=== PATIENT | male | born 1945 | race Caucasian/White ===

== ENCOUNTER 2016-11-19 10:37 | Day surgery (SDC) | payer OTHER ==
[2016-11-13 11:00] VITALS: Ht 170.2 cm; Wt 104.5 kg
[~2016-11-19] VITALS: Ht 170.2 cm; Wt 104.5 kg
[~2016-11-19 10:37] MED LIST: AMLO-110 PO; ATOR10TA88 PO; CALC0.5C17 PO; CHOL100027 PO; CIPROFLOXACIN 500 MG TAB PO SCH; CRD4 PO; LCTX PO; SODIUM CHLORIDE 0.9% 1000ML IV SCH
[2016-11-19 11:17] VITALS: BP 136/66; PULSE 70; TEMP 36.9; O2SAT 95
[2016-11-19 11:35] LABS: BUN/CREATININE RATIO 11.7 (10-20); CALCIUM 9.5 mg/dl (8.5-10.1); CREATININE 4.2 mg/dl (0.60-1.40); POTASSIUM 4.5 mmol/L (3.5-5.1)
[2016-11-19] MEDS ORDERED: FENTANYL CITRATE INJ 50 MCG/1 ML 2 ML VIAL ONE (12:42)
[2016-11-19] MEDS ORDERED: DEXAMETHASONE SOD INJ 4 MG/ML VIAL ONE (12:42)
[2016-11-19] MEDS ORDERED: PROPOFOL IV EMULSION 10 MG/ML 20 ML VIAL IV ONE (12:42)
[2016-11-19] MEDS ORDERED: LIDOCAINE HCL 2% 2 ML VIAL (20MG/ML) ONE (12:42)
[2016-11-19] MEDS ORDERED: ONDANSETRON INJ 2 MG/ML 2 ML VIAL ONE (12:42)
[2016-11-19] MEDS ORDERED: EpHEDrine SULFATE INJ 50 MG/ML AMP IV PRN (12:45)
[2016-11-19] MEDS ORDERED: ATROPINE SULFATE 0.1 MG/ML 5ML SYR IV PRN (12:45)
[2016-11-19] MEDS ORDERED: PROMETHAZINE HCL INJ 6.25 MG in SODIUM CHLORIDE 0.9% 50ML 50 ML IV PRN (12:45)
[2016-11-19] MEDS ORDERED: FENTANYL CITRATE INJ 50 MCG/1 ML 2 ML VIAL IV PRN (12:45)
[2016-11-19] MEDS ORDERED: ONDANSETRON INJ 2 MG/ML 2 ML VIAL IV PRN (12:45)
--- NOTE | 2016-11-19 13:08 | History & Physical Bridge Note ---
H&P Re-Evaluation Bridge Note: I have examined the patient, reviewed the History & Physical and in the interval since the performance of the History & Physical I have noted the following changes of clinical significance: No changes noted
--- NOTE | 2016-11-19 14:12 | [facility] Operative Report ---
Operative Report Operative Date Nov 19, 2016. Pre-Operative Diagnosis Benign prostatic hyperplasia with urinary retention Post-Operative Diagnosis same Procedure(s) Performed TURP, bipolar Surgeon Dr. Chela Branch Dress Marker Surgeon(s) None Estimated Blood Loss 5 mL Findings mild lateral lobe adenoma, trabeculated bladder with small cellules Fluids 200mL Specimens Permanent specimens A: Prostate chips Drains 20 fr coude villarreal Anesthesia LMA Complication(s) None Disposition Recovery Room / PACU Indications residual bph with elevated residual urine and equivocal obstruction on urodynamics. He is going to need kidney transplant so we plan to resect remaining prostate adenoma to lower outlet resistance and aid emptying. Description of Procedure Patient was given general LMA anesthesia and placed in lithotomy position. His genitals were prepped and draped in sterile fashion. Time out held with team. I placed a 26 fr rigid cystoscope to bladder. The urethra is unremarkable. The prostate is with lateral lobe adenoma to the apex. There is no cystitis and bladder is trabeculated with cellules. The bladder neck is open and there is no middle lobe, it has been resected previously and there is not residual tissue here. The UOs are close to bladder neck. I used bipolar system and thick loop to resect the left right lateral lobes and anterior areas. The bladder neck was completely untouched. I did spare the distal apical tissue at the veru. I used cautery for hemostasis and rinsed out the chips. I placed a 20 fr coude villarreal easily and inflated balloon with 10mL of water and connected him to gravity drainage and leg strap. He tolerated procedure well. He transferred to recovery under my escort, in stable condition. 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 Any exceptions are noted below.
[2016-11-19] MEDS ORDERED: PHEN-775 PO (14:14)
[2016-11-19] MEDS ORDERED: CPR500 PO (14:14)
--- NOTE | 2016-11-19 14:17 | Discharge Instructions ---
Discharge Instructions Date of Service Nov 19, 2016. Admission Reason for Admission: Benign Prostatic Hypertrophy W/Urinary Obstruction Discharge Discharge Diagnosis / Problem: bph with incomplete bladder emptying Discharge Goals Goal(s): Improve function, Improve disease control Activity Recommendations Activity Limitations: per Instructions/Follow-up section Lifting Limitations: no more than 25 pounds Exercise/Sports Limitations: gradually increase as tolerated May Resume Sexual Activity: when tolerated Shower/Bathe: no limitations Driving or Machine Use: resume 1 day after discharge . Instructions / Follow-Up Instructions / Follow-Up remove villarreal catheter in 2 days call office [phone] with any urinary problems after cath removal Discharge Diet Recommended Diet: Renal Diet Procedures Procedures Performed: Transurethral Resection of Prostate Pending Studies Studies pending at discharge: no Medical Emergencies . Who to Call and When: Medical Emergencies: If at any time you feel your situation is an emergency, please call 911 immediately. . Non-Emergent Contact Non-Emergency issues call your: Urologist Call Non-Emergent contact if: temperature is above 100.5 . . "Provider Documentation" section prepared by hCela Branch. . VTE Core Measure Inpt VTE Proph given/why not?: SCD's [place] Drug Monitoring Program Search Results: patient reviewed within database, no issues identified
[2016-11-19 14:51] VITALS: BP 138/70; PULSE 70; TEMP 36.7; O2SAT 94
--- NOTE | 2016-11-19 14:59 | Anesthesiology Progress Note ---
Anesthesia Post Op Note Date & Time Nov 19, 2016 at 14:59 Vital Signs Pain Intensity: 0 Vital Signs Past 12 Hours Date Time Temp Pulse Resp B/P (MAP) Pulse Ox O2 Delivery O2 Flow Rate FiO2 11/19/16 14:40 36.2 65 16 134/66 93 Room Air 11/19/16 14:30 65 16 123/67 92 Room Air 11/19/16 14:20 69 16 139/63 97 Oxymask 10 11/19/16 14:10 69 16 127/72 97 Oxymask 10 11/19/16 14:04 36.5 74 16 127/67 98 Oxymask 10 11/19/16 11:17 36.9 70 18 136/66 (89) 95 Room Air Notes Mental Status: alert / awake / arousable, participated in evaluation Pt Amnestic to Procedure: Yes Nausea / Vomiting: adequately controlled Pain: adequately controlled Airway Patency, RR, SpO2: stable & adequate BP & HR: stable & adequate Hydration State: stable & adequate Anesthetic Complications: no major complications apparent
[2016-11-19 15:20] VITALS: BP 127/67; PULSE 68; TEMP 36.6; O2SAT 95
== END 2016-11-19 15:40 | disposition home or self-care (01) ==
LOC: C.ACU 10:37
PROVIDERS: ATTEND Urology
DX: N40.1 Benign prostatic hyperplasia with lower urinary tract symptoms (principal); N41.1 Chronic prostatitis; I12.9 Hypertensive chronic kidney disease with stage 1 through stage 4 chronic kidney disease, or unspecified chronic kidney disease; N18.4 Chronic kidney disease, stage 4 (severe); E78.5 Hyperlipidemia, unspecified; Z79.899 Other long term (current) drug therapy; E66.9 Obesity, unspecified; Z68.36 Body mass index [BMI] 36.0-36.9, adult

== ENCOUNTER 2022-07-01 18:17 | Inpatient (IN) ==
--- NOTE | 2022-07-01 18:48 | ED Triage Note ---
Date of Service July 01, 2022 History of Present Illness This patient was briefly evaluated while in triage. An abbreviated physical exam was performed. This patient is a 76-year-old Male who who was referred to the ED by his PCP (Dr. Maki) for evaluation of a possible urinary tract infection. The patient reports that he did undergo a bladder procedure approximately 3 weeks ago. His recent urine test was concerning for infection, and was therefore referred to the emergency department for further evaluation. The patient denies any pain, nausea, vomiting or fever Physical Exam CONSTITUTIONAL: Healthy and well nourished. HEENT: No scleral icterus or conjunctival injection. INTEGUMENTARY: No rash or other significant dermatologic conditions noted. HEMATOLOGIC: No ecchymosis or petechiae. PSYCHIATRIC: Positive affect. NEUROLOGIC: No focal neurologic deficits noted. Initial orders for labs and / or imaging were placed and patient was placed in the waiting area until a bed is available. Please see further documentation for the full ED course.
[2022-07-01 20:02] LABS: Eosinophils # (auto) 0.34 K/uL (0-0.50); Eosinophils % (auto) 3.2 %; Hematocrit (blood only) 41.2 % (42.0-52.0); Hemoglobin 13.1 g/dl (14.0-18.0); Immature Granulocytes # (auto) 0.06 K/uL (0.01-0.20); Immature Granulocytes % (auto) 0.6 %; Lymphocytes # (auto) 1.55 K/uL (1.2-3.4); Lymphocytes % (auto) 14.7 %; Mean Corpuscular Hemoglobin 31.9 pg (25.0-34.0); Mean Corpuscular Hgb Conc 31.8 g/dL (32.0-36.0); Mean Corpuscular Volume 100.2 fL (80.0-100.0); Mean Platelet Volume 10.6 fL (9.4-12.4); Monocytes # (auto) 1.26 K/uL (0.11-0.59); Neutrophils # (auto) 7.21 K/uL (1.40-6.50); Neutrophils % (auto) 68.5 %; Platelet Count 233 K/uL (130-400); RDW Coefficient of Variation 14.8 % (11.5-14.5); RDW Standard Deviation 54.8 fL (36.4-46.3); Red Blood Count 4.11 M/uL (4.70-6.10); White Blood Count 10.52 K/ul (4.8-10.8)
[2022-07-01 20:22] LABS: Alanine Aminotransferase 14 U/L (7-52); Albumin Globulin Ratio 1.4 (0.9-2); Albumin Level 4.1 gm/dl (3.4-5.0); Alkaline Phosphatase 72 U/L (34-104); Anion Gap 6 (3-11); Aspartate Aminotransferase 19 U/L (13-39); BUN Creatinine Ratio 14.8 (10-20); Bilirubin,Total 0.3 mg/dl (0.2-1.0); Blood Urea Nitrogen 76 mg/dl (6-23); Calcium 9.8 mg/dl (8.5-10.1); Carbon Dioxide 27 mmol/L (21-32); Chloride 108 mmol/L (98-107); Est GFR (African American) 11.6 ml/min; Glucose 145 mg/dl (70-99(Fasting)); Potassium 4.3 mmol/L (3.5-5.1); Sodium 141 mmol/L (136-145); Total Protein 7.1 gm/dl (6.0-8.3)
[2022-07-01 21:15] LABS: Appearance Urine Turbid (Clear); Bacteria Urine Automated 1+ (Negative); Bilirubin Urine Negative (Negative); Blood Urine 2+ (Negative); Color Urine Yellow; Epithelial Cell Urine Auto 20-30 /lpf (0-5); Glucose Urine UA Trace (Negative); Ketones Urine Negative (Negative); Leukocyte Esterase Urine 3+ (Negative); Nitrite Urine Positive (Negative); Protein Urine 2+ (Negative); Specific Gravity Urine 1.014 (1.000-1.030); Urobilinogen Urine Negative (Negative); WBC Urine Automated >30 /hpf (0-5); pH Urine 5.5 (4.5-7.5)
[2022-07-01] MEDS ORDERED: MEROPENEM 500 MG in SYRINGE 0 ML IV SCH (21:15)
[2022-07-01 22:12] LABS: Magnesium 2.2 mg/dl (1.7-2.4)
--- NOTE | 2022-07-01 22:37 | Emergency Department Note ---
Impression & Plan Complicated UTI (urinary tract infection), CKD (chronic kidney disease) stage 5, GFR less than 15 ml/min ED Provider Note NAME: SHAYNE WAGONER AGE: 76 SEX: M : 1945 ARRIVES VIA: Walk-In INFORMANT: Patient, ED PROVIDER(S): Dallas Malik MD CHIEF COMPLAINT: Abnormal outpatient urine culture, outpatient referral MEDICAL DECISION MAKING: Patient presented due to concern for an outpatient urinalysis that showed resistance to by mouth medications. Patient has a normal white count mild anemia hemoglobin of 13. The patient's kidney function does show creatinine of 5. Prior creatinine from 2019 shows 4.6. Mild ovation of glucose at 145 but the patient is not DKA with normal bicarb and anion gap. Patient did give another urinalysis which is likely infection. COVID-negative. Blood work was obtained which did show the patient does have CKD stage V. The patient does still make urine. I did speak with pharmacy and spoke w/ Jennifer Pizarro, PharmD did send them a photo via [place] text with regard to the sensit ivities given the patient does have a Keflex allergy. They did recommend meropenem 500 every 24. This was ordered. Given the inability to facilitate it outpatient treatment at this time given the complicated UTI and necessity for IV antibiotics I did speak with the on-call hospitalist Dr. Mann and the patient was admitted to the medicine service Prior /Outside records reviewed: I did review the patient's most recent outpatient urine culture which showed 100,000 CFU's of Pseudomonas that was sensitive to cefepime gentamicin Zosyn and tobramycin but not sensitive to ciprofloxacin or levofloxacin. Differential diagnosis: Cystitis, CKD, pyelonephritis, urethritis, drug-resistant UTI among others were considered Diagnostics, as interpreted by me: ECG: None Cardiac monitoring: An order was placed for continuous cardiac monitoring. The monitor shows a rate of 92 with sinus rhythm. Patient was placed on pulse oximetry Medical decision rules: None Imaging studies: See below HPI: Patient presents due to concern for abnormal outpatient urine culture. The patient states that he was called about an abnormal test result and was referred immediately to the emergency department. The patient states that this was done so at the behest of his primary urologist through [employer]. Patient states that he did have a UTI several weeks ago and did have a cystoscopy performed whi showed some abnormal growths which were removed and the patient was in for follow-up testing and did have a repeat urinalysis completed patient denies any current symptoms but states that he did have some mild hematuria about 1 week ago. The patient states that he is currently on the transplant list and does follow with Dr. Maki as the patient does have significant kidney dysfunction. Patient states that he does still make urine. Patient denies any fevers chills flank or back pain. PAST MEDICAL HISTORY: See Below PAST SURGICAL HISTORY: See Below SOCIAL HISTORY: See Below HOME MEDICATIONS: See Below ALLERGIES: See Below VITALS: See Below PHYSICAL EXAMINATION: GENERAL: NAD, wearing a mask, non-toxic. EYE EXAM: Normal conjunctiva. PERRL, no anisocoria and EOM's grossly intact w/o pain. NECK: Supple, no nuchal rigidity, no adenopathy, non-tender. No signs of meningismus. FROM of the neck with good chin to chest and neck extension. No stridor. LUNGS: Clear to auscultation. Normal chest wall mechanics. HEART: NSR, no MRG. ABDOMEN: Abdomen soft, non-tender, normo-active bowel sounds, no masses, no rebound or guarding. BACK: No CVA TTP. SKIN: No rashes and no bruising. UPPER EXTREMITIES: Upper extremities are grossly normal. LOWER EXTREMITIES: Grossly normal, no edema. NEURO EXAM: A&O x3, cranial nerves II-XII grossly intact, normal speech, moves all 4 extremities. Past Med/Surg History Medical History (Updated 07/01/22 @ 22:37 by Dallas Malik MD) Aortic valve stenosis BPH (benign prostatic hyperplasia) Chronic kidney disease, stage 4 (severe) per pt, states he is not on dialysis Hyperlipidemia Hypertension Kidney stones Surgical History History of arthroscopy of left knee History of colonoscopy History of orchiectomy, unilateral Family History Mother Family history of diabetes mellitus Father Family hx of colon cancer Other No family history of adverse response to anesthesia Social History Smoking Status: Former smoker Second Hand Exposure: No; Hx Alcohol Use: No Hx Substance Use: No Preferred Language: Greek Communication Ability: Effective [employer] Required: No Beliefs That Will Affect Care: None Current Living Situation: Spouse Feels Safe at Home: Yes Assistive Devices: None Allergies Allergies Allergy/AdvReac Type Severity Reaction Status Date / Time cephalexin Allergy Severe swelling Verified 08/05/18 08:42 tamsulosin Allergy Severe angioedema Verified 08/05/18 08:42 Home Meds Home Medications Medication Instructions Recorded Confirmed amlodipine 5 mg tablet 5 mg PO HS 07/26/18 07/01/22 cholecalciferol (vitamin D3) 25 1,000 unit PO HS 07/26/18 07/01/22 mcg (1,000 unit) tablet atorvastatin 80 mg tablet 80 mg PO HS 07/01/22 07/01/22 calcitriol 0.25 mcg capsule 0.25 mcg PO QAM 07/01/22 07/01/22 clopidogrel 75 mg tablet 75 mg PO QA 07/01/22 07/01/22 finasteride 5 mg tablet 5 mg PO [facility] 07/01/22 07/01/22 Results & Data (ED) Vital Signs Vital Signs - 24 hr 07/01/22 18:43 Temperature 36.7 C Temperature Source Temporal Artery Scan Pulse Rate 89 Respiratory Rate 16 Respiratory Effort / Characteristics Non-Labored Spontaneous Respiratory Depth Normal Blood Pressure 143/70 H Blood Pressure Mean 94 Pulse Oximetry 93 Oxygen Delivery Method Room Air Sepsis Recent Fever Within 48 Hours No Sepsis New/Unexplained Change in Mental Status No Sepsis Action Taken by Nursing No Action Required Home Medications Current Medication List: was personally reviewed by me Laboratory Data Attestation: I reviewed the patient's lab results. 07/01/22 19:38 07/01/22 19:38 Lab Results 07/01/22 07/01/22 07/01/22 Range/Units 19:38 19:38 20:57 WBC 10.52 (4.8-10.8) K/ul RBC 4.11 L (4.70-6.10) M/uL Hgb 13.1 L (14.0-18.0) g/dl Hct 41.2 L (42.0-52.0) % MCV 100.2 H (80.0-100.0) fL MCH 31.9 (25.0-34.0) pg MCHC 31.8 L (32.0-36.0) g/dL RDW Std Deviation 54.8 H (36.4-46.3) fL RDW Coeff of Grace 14.8 H (11.5-14.5) % Plt Count 233 (130-400) K/uL MPV 10.6 (9.4-12.4) fL Immature Gran % (Auto) 0.6 % Neut % (Auto) 68.5 % Lymph % (Auto) 14.7 % Lake % (Auto) 12.0 % Eos % (Auto) 3.2 % Baso % (Auto) 1.0 % Neut # (Auto) 7.21 H (1.40-6.50) K/uL Lymph # (Auto) 1.55 (1.2-3.4) K/uL Lake # (Auto) 1.26 H (0.11-0.59) K/uL Eos # (Auto) 0.34 (0-0.50) K/uL Baso # (Auto) 0.10 (0-0.2) K/uL Immature Gran # (Auto) 0.06 (0.01-0.20) K/uL Sodium 141 (136-145) mmol/L Potassium 4.3 (3.5-5.1) mmol/L Chloride 108 H (98-107) mmol/L Carbon Dioxide 27 (21-32) mmol/L Anion Gap 6 (3-11) BUN 76 H (6-23) mg/dl Creatinine 5.14 H* (0.6-1.4) mg/dl Est Cr Clr Drug Dosing Not Reportable Est GFR ( Amer) 11.6 ml/min Est GFR (Non-Af Amer) 10.0 ml/min BUN/Creatinine Ratio 14.8 (10-20) Glucose 145 H (70-99(Fasting)) mg/dl Calcium 9.8 (8.5-10.1) mg/dl Magnesium 2.2 (1.7-2.4) mg/dl Total Bilirubin 0.3 (0.2-1.0) mg/dl AST 19 (13-39) U/L ALT 14 (7-52) U/L Alkaline Phosphatase 72 (34-104) U/L Total Protein 7.1 (6.0-8.3) gm/dl Albumin 4.1 (3.4-5.0) gm/dl Globulin 3.0 (2.5-4.0) gm/dl Albumin/Globulin Ratio 1.4 (0.9-2) Urine Color Yellow Urine Appearance Turbid A (Clear) Urine pH 5.5 (4.5-7.5) Ur Specific [place] 1.014 (1.000-1.030) Urine Protein 2+ H (Negative) Urine Glucose (UA) Trace H (Negative) Urine Ketones Negative (Negative) Urine Blood 2+ H (Negative) Urine Nitrite Positive A (Negative) Urine Bilirubin Negative (Negative) Urine Urobilinogen Negative (Negative) Ur Leukocyte Esterase 3+ H (Negative) Urine WBC (Auto) >30 H (0-5) /hpf Urine RBC (Auto) 5-10 H (0-4) /hpf U Hyaline Cast (Auto) 1-5 (0-5) /lpf U Epithel Cells (Auto) 20-30 H (0-5) /lpf Urine Bacteria (Auto) 1+ H (Negative) SARS-CoV-2, RNA, NAAT (NEGATIVE) 07/01/22 Range/Units 21:37 WBC (4.8-10.8) K/ul RBC (4.70-6.10) M/uL Hgb (14.0-18.0) g/dl Hct (42.0-52.0) % MCV (80.0-100.0) fL MCH (25.0-34.0) pg MCHC (32.0-36.0) g/dL RDW Std Deviation (36.4-46.3) fL RDW Coeff of Grace (11.5-14.5) % Plt Count (130-400) K/uL MPV (9.4-12.4) fL Immature Gran % (Auto) % Neut % (Auto) % Lymph % (Auto) % Lake % (Auto) % Eos % (Auto) % Baso % (Auto) % Neut # (Auto) (1.40-6.50) K/uL Lymph # (Auto) (1.2-3.4) K/uL [place] # (Auto) (0.11-0.59) K/uL Eos # (Auto) (0-0.50) K/uL Baso # (Auto) (0-0.2) K/uL Immature Gran # (Auto) (0.01-0.20) K/uL Sodium (136-145) mmol/L Potassium (3.5-5.1) mmol/L Chloride (98-107) mmol/L Carbon Dioxide (21-32) mmol/L Anion Gap (3-11) BUN (6-23) mg/dl Creatinine (0.6-1.4) mg/dl Est Cr Clr Drug Dosing Est GFR ( Amer) ml/min Est GFR (Non-Af Amer) ml/min BUN/Creatinine Ratio (10-20) Glucose (70-99(Fasting)) mg/dl Calcium (8.5-10.1) mg/dl Magnesium (1.7-2.4) mg/dl Total Bilirubin (0.2-1.0) mg/dl AST (13-39) U/L ALT (7-52) U/L Alkaline Phosphatase (34-104) U/L Total Protein (6.0-8.3) gm/dl Albumin (3.4-5.0) gm/dl Globulin (2.5-4.0) gm/dl Albumin/Globulin Ratio (0.9-2) Urine Color Urine Appearance (Clear) Urine pH (4.5-7.5) Ur Specific [place] (1.000-1.030) Urine Protein (Negative) Urine Glucose (UA) (Negative) Urine Ketones (Negative) Urine Blood (Negative) Urine Nitrite (Negative) Urine Bilirubin (Negative) Urine Urobilinogen (Negative) Ur Leukocyte Esterase (Negative) Urine WBC (Auto) (0-5) /hpf Urine RBC (Auto) (0-4) /hpf U Hyaline Cast (Auto) (0-5) /lpf U Epithel Cells (Auto) (0-5) /lpf Urine Bacteria (Auto) (Negative) SARS-CoV-2, RNA, NAAT NEGATIVE (NEGATIVE) Administered Medications Meropenem 500 mg/ Syringe 10 mls @ 2 mls/min IV Q24H [facility]; Protocol Stop: 07/03/22 21:14 Last Admin: 07/01/22 22:28 Dose: 2 mls/min Documented By: AW Discharge Plan Visit Data Chief Complaint: Urinary Symptoms Stated Complaint: REF BY DOC ED Provider: Dallas Malik Discharge Problem: Complicated UTI (urinary tract infection), CKD (chronic kidney disease) stage 5, GFR less than 15 ml/min Patient Disposition: Admitted As Inpatient Forms Stand Alone Forms: [facility] Prescriptions Prescriptions: No Action amlodipine 5 mg Tablet 5 mg PO HS cholecalciferol (vitamin D3) 1,000 unit Tablet 1,000 unit PO HS atorvastatin 80 mg tablet 80 mg PO HS calcitriol 0.25 mcg capsule 0.25 mcg PO QAM clopidogrel 75 mg tablet 75 mg PO QAM finasteride 5 mg tablet 5 mg PO QAM Referrals Referrals: Mike Maki MD [Primary Care Provider] -
[2022-07-01] MEDS ORDERED: SODIUM CHLORIDE 0.45 % 1,000 ML IV ONE (23:49)
--- NOTE | 2022-07-01 23:57 | History & Physical Report ---
Date of Service July 01, 2022 Assessment & Plan (1) Complicated UTI (urinary tract infection): Plan: Quinolone resistant Pseudomonas aeruginosa History BPH, bladder malignancy status post TURBT No sepsis for now hx CAD status post stent status post bioprosthetic AVR hypertension, slightly elevated hyperlipidemia on statin Rx CRI, close to baseline, patient currently off transplant list following recent bladder malignancy diagnosis DM 2 diet-controlled, patient disputes outpatient diagnosis, recent hemoglobin A1c of 6.18 March 2022 chronic anemia, hemoglobin at baseline past tobacco abuse. F Meropenem ID consult Re: Complicated UTI, quinolone resistant Pseudomonas aeruginosa, history of CKD/cephalosporin allergy ISS BG goal 1 10-1 40 DVT prophylaxis. Heparin subcu Full code Text document was generated using [employer] voice recognition software. It may contain grammatical or spelling errors. Kindly contact undersigned for clarification of any documentation item in question. History of Present Illness Chief Complaint: Abnormal urinalysis Primary Care Provider: iMke Maki MD History obtained from patient and records. Medical history significant for CAD status post stent, status post bioprosthetic AVR, hypertension, hyperlipidemia, CRI (baseline creatinine 5), BPH status post surgery, bladder cancer, DM 2 diet-controlled, chronic anemia (baseline hemoglobin of 13), past tobacco abuse. Last confinement 2011 for sepsis secondary to complicated UTI. Patient seen by [facility] urologist last month for evaluation of UTI symptoms. Patient underwent outpatient cystoscopy at [facility] last month. Bladder malignancy with prostate stones found. TURBT subsequently done. Outpatient UA requested by PCP 2 days ago. Quinolone resistant Pseudomonas aeruginosa found on urine CS. Patient denies abdominal/flank pain, dysuria, fever, chills. Patient sent to the ER for further management by PCP. Meropenem administered at the ER. 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 Allergies Allergy/AdvReac Type Severity Reaction Status Date / Time cephalexin Allergy Severe swelling Verified 08/05/18 08:42 tamsulosin Allergy Severe angioedema Verified 08/05/18 08:42 Home Medications Medication Instructions Recorded Confirmed Type amlodipine 5 mg tablet 5 mg PO HS 07/26/18 07/01/22 History cholecalciferol (vitamin D3) 25 1,000 unit PO HS 07/26/18 07/01/22 History mcg (1,000 unit) tablet atorvastatin 80 mg tablet 80 mg PO HS 07/01/22 07/01/22 History calcitriol 0.25 mcg capsule 0.25 mcg PO QAM 07/01/22 07/01/22 History clopidogrel 75 mg tablet 75 mg PO QAM 07/01/22 07/01/22 History finasteride 5 mg tablet 5 mg PO QAM 07/01/22 07/01/22 History Past Med/Surg History Medical History (Updated 07/01/22 @ 22:37 by Dallas Malik MD) Aortic valve stenosis BPH (benign prostatic hyperplasia) Chronic kidney disease, stage 4 (severe) per pt, states he is not on dialysis Hyperlipidemia Hypertension Kidney stones Surgical History History of arthroscopy of left knee History of colonoscopy History of orchiectomy, unilateral Family History Mother Family history of diabetes mellitus Father Family hx of colon cancer Other No family history of adverse response to anesthesia Social History Smoking Status: Former smoker Second Hand Exposure: No; Do You Dip or Chew Tobacco: No; Tobacco Cessation Education Requested by Patient: No Hx Alcohol Use: No Hx Substance Use: No Preferred Language: Mohawk Communication Ability: Effective Metal Model Builder Required: No Beliefs That Will Affect Care: None Current Living Situation: Spouse Other Information That Helps Us Care for You: No Feels Safe at Home: Yes Safety Concerns: Feels Safe At This Time Assistive Devices: None Review of Systems Review of Systems: As per HPI, all other systems reviewed and negative Physical Exam Physical Exam: GENERAL: Comfortable, obese, no respiratory distress SKIN: Normal color, warm HEENT: [place] palpebral conjunctivae, no ptosis, dry buccal mucosa NECK : Supple, short neck, no tenderness CHEST : CTA, no tenderness HEART : RRR, systolic murmur ABDOMEN: Some distention, nontender EXTREMITIES : Minimal LE swelling, no LE tenderness, no other conspicuous deformities noted NEUROLOGIC : Coherent, no facial asymmetry, no other gross focality Results & Data Results & Data ([facility]) Vital Signs (Past 12 Hours) Vital Signs Temp Pulse Resp BP Pulse Ox O2 Del Method 07/01/22 18:43 36.7 C 89 16 143/70 H 93 Room Air Laboratory Results Laboratory Results WBC 10.52 K/ul (4.8-10.8) 07/01/22 19:38 RBC 4.11 M/uL (4.70-6.10) L 07/01/22 19:38 Hgb 13.1 g/dl (14.0-18.0) L 07/01/22 19:38 Hct 41.2 % (42.0-52.0) L 07/01/22 19:38 MCV 100.2 fL (80.0-100.0) H 07/01/22 19:38 MCH 31.9 pg (25.0-34.0) 07/01/22 19:38 MCHC 31.8 g/dL (32.0-36.0) L 07/01/22 19:38 RDW Std Deviation 54.8 fL (36.4-46.3) H 07/01/22 19:38 RDW Coeff of Grace 14.8 % (11.5-14.5) H 07/01/22 19:38 Plt Count 233 K/uL (130-400) 07/01/22 19:38 MPV 10.6 fL (9.4-12.4) 07/01/22 19:38 Immature Gran % (Auto) 0.6 % 07/01/22 19:38 Neut % (Auto) 68.5 % 07/01/22 19:38 Lymph % (Auto) 14.7 % 07/01/22 19:38 [place] % (Auto) 12.0 % 07/01/22 19:38 Eos % (Auto) 3.2 % 07/01/22 19:38 Baso % (Auto) 1.0 % 07/01/22 19:38 Neut # (Auto) 7.21 K/uL (1.40-6.50) H 07/01/22 19:38 Lymph # (Auto) 1.55 K/uL (1.2-3.4) 07/01/22 19:38 [place] # (Auto) 1.26 K/uL (0.11-0.59) H 07/01/22 19:38 Eos # (Auto) 0.34 K/uL (0-0.50) 07/01/22 19:38 Baso # (Auto) 0.10 K/uL (0-0.2) 07/01/22 19:38 Immature Gran # (Auto) 0.06 K/uL (0.01-0.20) 07/01/22 19:38 Sodium 141 mmol/L (136-145) 07/01/22 19:38 Potassium 4.3 mmol/L (3.5-5.1) 07/01/22 19:38 Chloride 108 mmol/L (98-107) H 07/01/22 19:38 Carbon Dioxide 27 mmol/L (21-32) 07/01/22 19:38 Anion Gap 6 (3-11) 07/01/22 19:38 BUN 76 mg/dl (6-23) H 07/01/22 19:38 Creatinine 5.14 mg/dl (0.6-1.4) H* 07/01/22 19:38 Est Cr Clr Drug Dosing Not Reportable 07/01/22 19:38 Est GFR ( Amer) 11.6 ml/min 07/01/22 19:38 Est GFR (Non-Af Amer) 10.0 ml/min 07/01/22 19:38 BUN/Creatinine Ratio 14.8 (10-20) 07/01/22 19:38 Glucose 145 mg/dl (70-99(Fasting)) H 07/01/22 19:38 Calcium 9.8 mg/dl (8.5-10.1) 07/01/22 19:38 Magnesium 2.2 mg/dl (1.7-2.4) 07/01/22 19:38 Total Bilirubin 0.3 mg/dl (0.2-1.0) 07/01/22 19:38 AST 19 U/L (13-39) 07/01/22 19:38 ALT 14 U/L (7-52) 07/01/22 19:38 Alkaline Phosphatase 72 U/L (34-104) 07/01/22 19:38 Total Protein 7.1 gm/dl (6.0-8.3) 07/01/22 19:38 Albumin 4.1 gm/dl (3.4-5.0) 07/01/22 19:38 Globulin 3.0 gm/dl (2.5-4.0) 07/01/22 19:38 Albumin/Globulin Ratio 1.4 (0.9-2) 07/01/22 19:38 Urine Color Yellow 07/01/22 20:57 Urine Appearance Turbid (Clear) A 07/01/22 20:57 Urine pH 5.5 (4.5-7.5) 07/01/22 20:57 Ur Specific [place] 1.014 (1.000-1.030) 07/01/22 20:57 Urine Protein 2+ (Negative) H 07/01/22 20:57 Urine Glucose (UA) Trace (Negative) H 07/01/22 20:57 Urine Ketones Negative (Negative) 07/01/22 20:57 Urine Blood 2+ (Negative) H 07/01/22 20:57 Urine Nitrite Positive (Negative) A 07/01/22 20:57 Urine Bilirubin Negative (Negative) 07/01/22 20:57 Urine Urobilinogen Negative (Negative) 07/01/22 20:57 Ur Leukocyte Esterase 3+ (Negative) H 07/01/22 20:57 Urine WBC (Auto) >30 /hpf (0-5) H 07/01/22 20:57 Urine RBC (Auto) 5-10 /hpf (0-4) H 07/01/22 20:57 U Hyaline Cast (Auto) 1-5 /lpf (0-5) 07/01/22 20:57 U Epithel Cells (Auto) 20-30 /lpf (0-5) H 07/01/22 20:57 Urine Bacteria (Auto) 1+ (Negative) H 07/01/22 20:57 SARS-CoV-2, RNA, NAAT NEGATIVE (NEGATIVE) 07/01/22 21:37 Diagnostic Findings Chest x-ray as per my interpretation cardiomegaly, atelectasis, elevated right hemidiaphragm Code Status & VTE Plan VTE Prophylaxis Plan VTE Prophylaxis will be ordered: Yes
[2022-07-02] MEDS ORDERED: ALBUMIN 25% 12.5 GM/50 ML VIAL IV ONE (00:30)
[2022-07-02] MEDS ORDERED: GLUCOSE 40% GEL 15 GM TUBE PO PRN (01:54)
[2022-07-02] MEDS ORDERED: DEXTROSE 50% 50 ML SYRINGE IV PRN (01:54)
[2022-07-02] MEDS ORDERED: CARBOHYDRATES FOR HYPOGLYCEMIA PO PRN (01:54)
[2022-07-02] MEDS ORDERED: ACETAMINOPHEN 325 MG TAB PO PRN (01:54)
[2022-07-02] MEDS ORDERED: GLUCOSE 10 TAB/TUBE PO PRN (01:54)
[2022-07-02] MEDS ORDERED: GLUCAGON FOR INJ 1 MG VIAL SQ PRN (01:54)
[2022-07-02] MEDS ORDERED: PROMETHAZINE HCL 12.5 MG in SODIUM CHLORIDE 0.9% 50 ML IV PRN (01:54)
[2022-07-02] MEDS: INSULIN ASPART PER UNIT SC SCH ×5 (02:00→20:31)
[2022-07-02] MEDS: amLODIPine BESYLATE 5 MG TAB PO SCH ×2 (02:51→20:31)
[2022-07-02] MEDS: HEPARIN SOD 5,000 UNIT/0.5 ML VIAL SQ SCH ×3 (06:29→20:31)
--- NOTE | 2022-07-02 07:20 | XRay Report ---
SINGLE VIEW CHEST CLINICAL HISTORY: Renal failure FINDINGS: An AP, portable, upright chest radiograph is compared to study dated 08/02/2011. The examina tion is degraded by portable technique and patient rotation. The heart is top normal for projection. The pulmonary vasculature is noncongested. There is chronic elevation of right hemidiaphragm with bi basilar scarring/atelectasis. No airspace consolidation or large pleural effusion is identified. No p neumothorax is seen. The skeletal structures are osteopenic. The bony thorax is grossly intact. IMPRESSION: No acute cardiopulmonary abnormality is identified. ACT 112: Negative or not required by law. Electronically signed by: Hansel Argueta M.D. 07/02/2022 7:19 AM
[2022-07-02 08:00] LABS: Basophils # (auto) 0.09 K/uL (0-0.2); Basophils % (auto) 0.9 %; Eosinophils # (auto) 0.46 K/uL (0-0.50); Eosinophils % (auto) 4.6 %; Hemoglobin 12.1 g/dl (14.0-18.0); Immature Granulocytes # (auto) 0.06 K/uL (0.01-0.20); Immature Granulocytes % (auto) 0.6 %; Lymphocytes # (auto) 1.61 K/uL (1.2-3.4); Mean Corpuscular Hemoglobin 31.7 pg (25.0-34.0); Mean Corpuscular Hgb Conc 31.8 g/dL (32.0-36.0); Mean Corpuscular Volume 99.5 fL (80.0-100.0); Mean Platelet Volume 11.1 fL (9.4-12.4); Monocytes # (auto) 1.35 K/uL (0.11-0.59); Monocytes % (auto) 13.4 %; Neutrophils # (auto) 6.49 K/uL (1.40-6.50); Neutrophils % (auto) 64.5 %; Platelet Count 204 K/uL (130-400); RDW Coefficient of Variation 14.8 % (11.5-14.5); RDW Standard Deviation 53.9 fL (36.4-46.3); Red Blood Count 3.82 M/uL (4.70-6.10); White Blood Count 10.06 K/ul (4.8-10.8)
[2022-07-02] MEDS ORDERED: SODIUM CHLORIDE 0.45 % 1,000 ML IV ONE (08:23)
[2022-07-02 08:29] LABS: Anion Gap 7 (3-11); BUN Creatinine Ratio 15.5 (10-20); Blood Urea Nitrogen 83 mg/dl (6-23); Calcium 9.1 mg/dl (8.5-10.1); Carbon Dioxide 23 mmol/L (21-32); Chloride 111 mmol/L (98-107); Est GFR (Non-African American) 9.5 ml/min; Glucose 124 mg/dl (70-99(Fasting)); Potassium 4.2 mmol/L (3.5-5.1); Sodium 141 mmol/L (136-145)
[2022-07-02] MEDS: CLOPIDOGREL BISULFATE 75 MG TAB PO SCH (09:01)
[2022-07-02] MEDS: FINASTERIDE 5 MG TAB PO SCH (09:01)
[2022-07-02] MEDS ORDERED: Patient's HEIGHT Needed STA (14:20)
[2022-07-02] MEDS ORDERED: Patient's HEIGHT &/or WEIGHT Needed ONE (15:00)
--- NOTE | 2022-07-02 15:54 | Hospitalist Progress Note ---
Date of Service July 02, 2022 Assessment & Plan (1) Complicated UTI (urinary tract infection): Plan: Multiresistant Pseudomonas aeruginosa as below. He was sent in from home following the positive urine culture with multiple resistant organism He had this following urine culture and sensitivity as an outpatient: Culture Growth >100,000 colonies/mL Pseudomonas aeruginosa Abnormal This bacterial species is known to produce a chromosomal AmpC inducible beta lactamase. Penicillin or cephalosporin use, with the exception of cefepime, may result in resistance. Resulting Agency: Susceptibility Pseudomonas aeruginosa MICROBROTH DILUTIONS Cefepime Susceptible Ciprofloxacin Resistant Gentamicin Susceptible 1 Levofloxacin Resistant Piperacillin Tazobactam Susceptible Tobramycin Susceptible 1 Changed result: Previously reported as Susceptible (2) on 06/30/2022 at 1444 EST. Specimen Collected: 06/27/22 4:40 PM Last Urine culture in the hospital is pending Received a dose of meropenem in the emergency room Appreciate ID input and recommendation Started with meropenem 500 mg IV once daily given the stage V kidney disease and this will be continued for 14 days in total as per the recommendation Will have ultrasound-guided line Discharge following management of IV antibiotic administration Chronic kidney disease stage V Has a GFR of around [address] 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 DVT prophylaxis. Heparin subcu Full code Admission and Anticipated Discharge Date Admission Date: July 01, 2022 Subjective 07/02/2022 The patient was seen and examined in medical floor He denies any symptoms whatsoever and wants to leave the hospital MÓNICA He does not have any urinary symptoms, no fever and or chills Review of Systems Review of Systems: All systems reviewed and are unremarkable except as noted below Physical Exam Physical Exam: Sitting at the edge of the bed without any acute distress Constitutional: well developed, well nourished and + obese; not ill appearing Eyes: PERRL, conjunctivae normal, anicteric sclerae ENMT: external ear and nose normal, oropharynx normal Neck: trachea midline, no thyromegaly Respiratory: no respiratory distress Auscultation: lungs clear to auscultation bilaterally and + crackles (Minimal bibasilar crackles) Cardiovascular: Rate/Rhythm: regular rate and regular rhythm; not tachycardic Heart Sounds: normal S1 and normal S2; no murmur Extremities: + edema (Trace edema bilaterally) Gastrointestinal (Abdomen): Inspection/Auscultation: + abdomen distended and normal bowel sounds Percussion/Palpation: abdomen soft; abdomen nontender Musculoskeletal: No acute arthritis in any joint Neurologic: Alert, awake and oriented x3. No focal sensory or motor deficit appreciated Psychiatric: A+Ox3, euthymic affect Lymphatic: no cervical or axillary lymphadenopathy Results & Data Results & Data ([facility]) Vital Signs (Past 12 Hours) Vital Signs Temp Pulse Resp BP Pulse Ox O2 Del Method 07/02/22 07:07 Room Air 07/02/22 07:02 37.2 C 93 H 18 146/80 H 93 Room Air Laboratory Results Short CBC 07/01/22 07/02/22 Range/Units 19:38 06:52 WBC 10.52 10.06 (4.8-10.8) K/ul Hgb 13.1 L 12.1 L (14.0-18.0) g/dl Hct 41.2 L 38.0 L (42.0-52.0) % Plt Count 233 204 (130-400) K/uL BMP 07/01/22 07/02/22 19:38 06:52 Sodium 141 141 Potassium 4.3 4.2 Chloride 108 H 111 H Carbon Dioxide 27 23 BUN 76 H 83 H Creatinine 5.14 H* 5.37 H* Glucose 145 H 124 H Calcium 9.8 9.1 Liver Function 07/01/22 Range/Units 19:38 Total Bilirubin 0.3 (0.2-1.0) mg/dl AST 19 (13-39) U/L ALT 14 (7-52) U/L Alkaline Phosphatase 72 (34-104) U/L Albumin 4.1 (3.4-5.0) gm/dl Urine 07/01/22 Range/Units 20:57 Urine Color Yellow Urine Appearance Turbid A (Clear) Urine pH 5.5 (4.5-7.5) Ur Specific [place] 1.014 (1.000-1.030) Urine Protein 2+ H (Negative) Urine Glucose (UA) Trace H (Negative) Medications Administered Current Inpatient Medications Acetaminophen (Acetaminophen 325 Mg Tab) 650 mg PO Q4H PRN PRN Reason: pain/fever Stop: 08/01/22 01:53 Amlodipine Besylate (Amlodipine Besylate 5 Mg Tab) 5 mg PO [facility] Stop: 08/01/22 01:53 Last Admin: 07/02/22 02:51 Dose: 5 mg Atorvastatin Calcium (Atorvastatin 40 Mg Tab) 80 mg PO [facility] Stop: 08/01/22 20:59 Clopidogrel Bisulfate (Clopidogrel Bisulfate 75 Mg Tab) [facility] Stop: 08/01/22 08:59 Last Admin: 07/02/22 09:01 Dose: 75 mg Dextrose (Dextrose 50% 50 Ml Syringe) 25 - 50 ml IV UD PRN; Protocol PRN Reason: Hypoglycemia Protocol Stop: 08/01/22 01:53 Finasteride (Finasteride 5 Mg Tab) [facility] Stop: 08/01/22 08:59 Last Admin: 07/02/22 09:01 Dose: 5 mg Glucagon (Glucagon For Inj 1 Mg Vial) 1 mg SQ UD PRN; Protocol PRN Reason: Hypoglycemia Protocol Stop: 08/01/22 01:53 Glucose (Glucose 10 Tab/Tube) 4 - 8 tab PO UD PRN; Protocol PRN Reason: Hypoglycemia Treatment Stop: 08/01/22 01:53 Glucose (Glucose 40% Gel 15 Gm Tube) 15 - 30 gm PO UD PRN; Protocol PRN Reason: Hypoglycemia Protocol Stop: 08/01/22 01:53 Heparin Sodium (Porcine) (Heparin Sod 5,000 Unit/0.5 Ml Vial) 5,000 units SQ Q8 NATHANAEL Stop: 08/01/22 05:59 Last Admin: 07/02/22 15:03 Dose: Not Given Promethazine HCl 12.5 mg/ (Sodium Chloride) 50.5 mls @ 202 mls/hr IV Q6H PRN PRN Reason: Nausea And Vomiting Stop: 08/01/22 01:53 Sodium Chloride (1/2 Nss) 1,000 mls @ 50 mls/hr IV .Q20H ONE Stop: 07/03/22 04:22 Last Admin: 07/02/22 09:00 Dose: Not Given Meropenem 500 mg/ Syringe 10 mls @ 2 mls/min IV DAILY [facility]; Protocol Stop: 07/12/22 14:14 Insulin Aspart (Insulin Aspart Per Unit) 0 units SC ACHS [facility] Stop: 08/01/22 01:53 Last Admin: 07/02/22 12:28 Dose: Not Given Miscellaneous (Carbohydrates For Hypoglycemia ) 15 - 30 gm PO UD PRN PRN Reason: Hypoglycemia Protocol Stop: 08/01/22 01:53
[2022-07-02] MEDS: MEROPENEM 500 MG in SYRINGE 0 ML IV SCH (16:57)
[2022-07-02] MEDS ORDERED: ATORVASTATIN 40 MG TAB PO SCH (21:00)
[2022-07-03] MEDS: HEPARIN SOD 5,000 UNIT/0.5 ML VIAL SQ SCH (05:58)
[2022-07-03] MEDS: MEROPENEM 500 MG in SYRINGE 0 ML IV SCH (09:05)
[2022-07-03] MEDS: INSULIN ASPART PER UNIT SC SCH (09:09)
[2022-07-03] MEDS: FINASTERIDE 5 MG TAB PO SCH (09:09)
[2022-07-03] MEDS: CLOPIDOGREL BISULFATE 75 MG TAB PO SCH (09:09)
--- NOTE | 2022-07-03 11:33 | Discharge Summary ---
Discharge Summary Date of Service July 03, 2022 Notes For Next Care Provider Multiresistant Pseudomonas aeruginosa UTI discharging on IV meropenem 500 mg daily given renal impairment. Will receive at [facility] daily x 12 days. Medication Changes From Visit Continue IV meropenem 500 mg daily x 12 days Admission HPI Per Admitting Provider History obtained from patient and records. Medical history significant for CAD status post stent, status post bioprosthetic AVR, hypertension, hyperlipidemia, CRI (baseline creatinine 5), BPH status post surgery, bladder cancer, DM 2 diet-controlled, chronic anemia (baseline hemoglobin of 13), past tobacco abuse. Last confinement 2011 for sepsis secondary to complicated UTI. Patient seen by [facility] urologist last month for evaluation of UTI symptoms. Patient underwent outpatient cystoscopy at [facility] last month. Bladder malignancy with prostate stones found. TURBT subsequently done. Outpatient UA requested by PCP 2 days ago. Quinolone resistant Pseudomonas aeruginosa found on urine CS. Patient denies abdominal/flank pain, dysuria, fever, chills. Patient sent to the ER for further management by PCP. Meropenem administered at the ER. 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 Admission Exam Per Admitting Provider GENERAL: Comfortable, obese, no respiratory distress SKIN: Normal color, warm HEENT: [place] palpebral conjunctivae, no ptosis, dry buccal mucosa NECK : Supple, short neck, no tenderness CHEST : CTA, no tenderness HEART : RRR, systolic murmur ABDOMEN: Some distention, nontender EXTREMITIES : Minimal LE swelling, no LE tenderness, no other conspicuous deformities noted NEUROLOGIC : Coherent, no facial asymmetry, no other gross focality Principal Dx & Hospital Course #1 = Principal Diagnosis (1) Complicated UTI (urinary tract infection): (2) CKD (chronic kidney disease) stage 5, GFR less than 15 ml/min: (3) BPH (benign prostatic hyperplasia): (4) Hypertension: Plan This is a 76yo with PMH of CAD status post stent, status post bioprosthetic AVR, hypertension, hyperlipidemia, CRI (baseline creatinine 5), BPH status post surgery, bladder cancer, DM 2 diet-controlled, chronic anemia (baseline hemoglobin of 13), past tobacco abuse and other medical problems listed below who was admitted for multiresistant Pseudomonas aeruginosa UTI. Was sent in from home following the positive urine culture with multidrug resistance. Per ID consult and recommendation, patient to be continued on IV meropenem 500 mg daily given the stage V kidney disease for a total of 14 days. Ultrasound guided line placed, patient agreeable to presenting to [facility] daily for the next 12 days to complete antibiotic treatment. Patient follows with nephrology and has previously discussed possibility of dialysis but patient not currently interested. Advised to keep scheduled appointment with nephrology and follow-up with PCP as well. Patient comfortable and he medically stable at time of discharge. Discharge Exam Gen: WD/WN, NAD, sitting on side of bed, A&Ox3 HEENT: Normocephalic, atraumatic, conjunctivae moist, sclerae anicteric, mucous membranes moist Lung: Clear to Auscultation bilaterally, no wheezes/rales/rhonchi Heart: Regular rate, regular rhythm, no murmurs, rubs, or gallops, trace edema Abdomen: Soft, NT, ND +BS x 4 Extremities: no edema. + left forearm line in place Skin: Warm, no rash Updated Medication List Medication Instructions Recorded Confirmed Type amlodipine 5 mg tablet 5 mg PO HS 07/26/18 07/01/22 History cholecalciferol (vitamin D3) 25 1,000 unit PO HS 07/26/18 07/01/22 History mcg (1,000 unit) tablet atorvastatin 80 mg tablet 80 mg PO HS 07/01/22 07/01/22 History calcitriol 0.25 mcg capsule 0.25 mcg PO QAM 07/01/22 07/01/22 History clopidogrel 75 mg tablet 75 mg PO QAM 07/01/22 07/01/22 History finasteride 5 mg tablet 5 mg PO QAM 07/01/22 07/01/22 History meropenem 500 mg intravenous 500 mg IV DAILY #12 ea 07/03/22 Rx solution Hospital Stay Data Consultations 07/01/22 21:14 ED Decision to Admit Stat 07/02/22 01:54 Consult Infectious Diseases Routine Pending Results Patient Have Any Pending Studies at Discharge: No Discharge Instructions Given to Patient (Per Discharging Provider) Continue to take IV meropenem 500 mg daily for 12 days, administered at [facility]. Ultrasound-guided line in place. RECOMMENDATIONS FOR FOLLOW-UP: Please have regular follow-up appointment with your currency exchange specialist and PCP OTHER INSTRUCTIONS: Seek medical attention if you have: * temperature above 101 * chest pain or trouble breathing * abdominal pain, nausea, vomiting * diarrhea, dark stools or bloody stools * any unanswered questions or concerns Call 911 if symptoms are severe. Please take good care of yourself. Call if you have any questions or problems. You can reach a [facility] hospitalist on duty at [facility] 24 hours a day by calling [phone]. Total Time Total Time Spent Total Time Spent (In Minutes): 40 Supervising Physician Co-Signing Physician Notes Attending addendum: The patient was seen and examined in medical floor He has been waiting to be discharged He denies any symptoms but his UA is developing gram-negative bacilli On examination Sitting on a chair without any acute distress Hemodynamically stable Chest is clear to auscultate bilaterally HeartS1-S2, regular Abdomenbenign His labs and medications reviewed He has complicated UTI secondary to Pseudomonas aeruginosa which is resistant to multiple bacteria He will continue meropenem for the next 2 weeks Agree with assessment and plan as outlined above by KARYNA Blake Dr
== END 2022-07-03 11:35 | disposition home or self-care (01) | DRG 690 ==
LOC: ED 18:17 → 3N 23:52

== ENCOUNTER 2022-09-28 14:53 | Inpatient (IN) ==
--- NOTE | 2022-09-28 15:43 | Emergency Department Note ---
Impression & Plan Complicated UTI (urinary tract infection), CKD (chronic kidney disease) stage 5, GFR less than 15 ml/min, Urinary tract infection due to Pseudomonas aeruginosa ED Provider Note A provider: Geovanni Andres MD DATE OF SERVICE: 09/28/2022 CHIEF COMPLAINT: Right lower quadrant abdominal pain HISTORY OF PRESENT ILLNESS: Patient is a 76-year-old gentleman history of hypertension, aortic stenosis status post TAVR, BPH, Pseudomonas UTI, and CKD presenting here today with reporting recently developing some pain in the right lower quadrant inguinal region. States severe right lower quadrant pain developed yesterday and persistent. Worse with movement. Denies trauma. Denies bloody urine or urinary symptoms currently. States he was recently treated for urinary infection. States he does not have symptoms when he has UTI. Denies any diarrhea or nausea or vomiting. States a little bit of back pain but this may be chronic. Denies any significant chest pain at this time. Reports he felt warm and maybe some chills earlier today. No clear fevers reported. Has a high pain tolerance and did not take anything for pain earlier. Denies testicular or penile pain PAST MEDICAL HISTORY: As noted above MEDICATIONS: Reviewed home medication list SOCIAL HISTORY: PHYSICAL EXAM: GENERAL: alert and oriented in no acute distress on stretcher Head: normocephalic and atraumatic EYES: No injection, discharge or icterus. NECK: Trachea midline ENT: Mucous membranes pink and moist. LUNGS: Airway patent. No retractions or tachypnea HEART: Regular rate and rhythm. No chest wall tenderness ABDOMEN: Soft with guarding and significant tenderness in the right lower quadrant without overlying bruising. No significant tenderness to the left abdomen or upper abdomen. Small nontender umbilical hernia appreciated. SKIN: Acyanotic, warm, dry EXTREMITIES: Without swelling, tenderness or deformity NEUROLOGICAL: No focal deficits. No aphasia. No facial droop or slurred speech. Ambulatory. EK bpm sinus rhythm first-degree AV block. Right bundle branch block left anterior fascicular block noted. No clear acute ST segment elevation noted. QTc 438. CONTINUOUS CARDIAC MONITORING: was ordered and showed a heart rate of 80s to 90s bpm in sinus rhythm first-degree AV block right bundle branch block Patient's laboratory studies and imaging reviewed. Differential includes Appendicitis, testicular torsion, infections, diverticulitis, UTI, obstruction, mesenteric ischemia, aortic pathology, inflammatory bowel disease, renal colic, PUD, pancreatitis, biliary pathology, hernia, volvulus, constipation, as well as other pathologies. IMPRESSION/MEDICAL DECISION MAKING: Patient with history of CKD and no trauma now with significant pain in the right lower quadrant. Denies a history of significant abdominal surgeries. Basic blood work was sent here today. Some chills reported but no afebrile here. Denies genital pain. Some mild back discomfort but he states some of this may be chronic. No sciatic symptoms reported. No masses appreciated on the abdomen but significantly tender in the right lower quadrant. Given his renal dysfunction CT scan of the abdomen pelvis obtained to look for intra-abdominal processes kidney stone, appendicitis, or other acute abnormality. States has had recent treated Pseudomonas UTIs but did not have pain like this with those. Recently treated with fosfomycin. Resistant Pseudomonas culture reviewed from the [facility] system as well as recent nephrology note. Blood returns with slight anemia but significant leukocytosis 22.79. Procalcitonin elevated 1.2 but lactate is normal at 1.2. Patient again not hypotensive or tachycardic here. Creatinine returns here today at 5.58 slightly worse than recent blood work on the first of this month at 5.3. Slight troponin elevation but likely more chronic in light of his CKD and not having active chest pain. No signs of acute hepatitis or pancreatitis based on labs. No severe electrolyte abnormality noted such as hyperkalemia. CT scan shows a normal appendix with significant stranding around the left kidney without findings obstruction questioning a possible infectious process. Prostate and bladder wall thickening for chronic outlet obstruction are noted. No free air is noted by the radiology report. Patient pains in the right lower quadrant not clearly correlating with the CT report involving the left kidney but certainly it appears he has a infectious process. Do not see other surgical emergency in the abdomen at this point from the CT report. Discussed with pharmacy and proceed with meropenem given his history of resistant Pseudomonas. Discussed with patient and staying in the hospital for further evaluation and care. Question given his poor renal function question how much of the fosfomycin he took last week was able to penetrate into urine for treatment. and patient updated extensively at bedside and patient will likely need further ID consultation during this admission given his complex UTI. Given 500 mL of normal saline fluid bolus although being cautious given his advanced CKD to avoid fluid overload. Patient declining any pain medication. Discussed with hospitalist via phone. DIAGNOSIS: Resistant pseudomonas complicated urinary tract infection, pyelonephritis, ESRD not on dialysis DISPOSITION: Hospitalist will evaluate Patient was agreeable with this plan. Past Med/Surg History Medical History Aortic valve stenosis BPH (benign prostatic hyperplasia) Chronic kidney disease, stage 4 (severe) per pt, states he is not on dialysis History of bladder infections Hyperlipidemia Hypertension Surgical History History of arthroscopy of left knee History of colonoscopy History of orchiectomy, unilateral Family History Mother Family history of diabetes mellitus Father Family hx of colon cancer Other No family history of adverse response to anesthesia Social History Smoking Status: Former smoker Second Hand Exposure: No; Do You Dip or Chew Tobacco: No; Hx Alcohol Use: No Hx Substance Use: No Preferred Language: Thai Communication Ability: Effective Mailing Section Clerk Required: No Beliefs That Will Affect Care: None Current Living Situation: Spouse Feels Safe at Home: Yes Assistive Devices: None Allergies Allergies Allergy/AdvReac Type Severity Reaction Status Date / Time cephalexin Allergy Severe Tongue and Verified 09/28/22 16:56 face swelling tamsulosin Allergy Severe angioedema Verified 09/28/22 16:56 Home Meds Home Medications Medication Instructions Recorded Confirmed amlodipine 5 mg tablet 5 mg PO HS 07/26/18 09/28/22 atorvastatin 80 mg tablet 80 mg PO HS 07/01/22 09/28/22 clopidogrel 75 mg tablet 75 mg PO QAM 07/01/22 09/28/22 finasteride 5 mg tablet 5 mg PO QAM 07/01/22 09/28/22 aspirin 81 mg chewable tablet 81 mg PO DAILY 07/04/22 09/28/22 [id number] 1 mg 1 tab PO DAILY 07/04/22 09/28/22 tablet calcitriol 0.5 mcg capsule 0.5 mcg PO QAM 09/28/22 09/28/22 Results & Data (ED) Vital Signs Vital Signs - 24 hr 09/28/22 14:59 09/28/22 16:04 Temperature 37 C Temperature Source Temporal Artery Scan Pulse Rate 96 H 89 Respiratory Rate 14 Blood Pressure 119/73 Blood Pressure Mean 88 Pulse Oximetry 93 Oxygen Delivery Method Room Air Sepsis Recent Fever Within 48 Hours No Sepsis New/Unexplained Change in Mental Status No Sepsis Action Taken by Nursing No Action Required Laboratory Data 09/28/22 15:29 09/28/22 15:29 Lab Results 09/28/22 09/28/22 09/28/22 Range/Units 15:29 15:29 15:29 WBC 22.79 H (4.8-10.8) K/ul RBC 3.86 L (4.70-6.10) M/uL Hgb 12.5 L (14.0-18.0) g/dl Hct 39.9 L (42.0-52.0) % MCV 103.4 H (80.0-100.0) fL MCH 32.4 (25.0-34.0) pg MCHC 31.3 L (32.0-36.0) g/dL RDW Std Deviation 55.6 H (36.4-46.3) fL RDW Coeff of Grace 14.9 H (11.5-14.5) % Plt Count 171 (130-400) K/uL MPV 11.2 (9.4-12.4) fL Immature Gran % (Auto) 0.5 % Neut % (Auto) 88.4 % Lymph % (Auto) 4.4 % Rock % (Auto) 6.2 % Eos % (Auto) 0.1 % Baso % (Auto) 0.4 % Neut # (Auto) 20.15 H (1.40-6.50) K/uL Lymph # (Auto) 1.01 L (1.2-3.4) K/uL Rock # (Auto) 1.41 H (0.11-0.59) K/uL Eos # (Auto) 0.02 (0-0.50) K/uL Baso # (Auto) 0.08 (0-0.2) K/uL Immature Gran # (Auto) 0.12 (0.01-0.20) K/uL Polychromasia 1+ PT 11.5 (9.0-12.0) Seconds INR 1.1 (0.9-1.1) Sodium 139 (136-145) mmol/L Potassium 4.8 (3.5-5.1) mmol/L Chloride 110 H (98-107) mmol/L Carbon Dioxide 23 (21-32) mmol/L Anion Gap 6 (3-11) BUN 61 H (6-23) mg/dl Creatinine 5.58 H* (0.6-1.4) mg/dl Est Cr Clr Drug Dosing 12.3 ml/min Est GFR ( Amer) 10.5 ml/min Est GFR (Non-Af Amer) 9.0 ml/min BUN/Creatinine Ratio 10.9 (10-20) Glucose 163 H (70-99(Fasting)) mg/dl Lactate (0.4-2.0) mmol/L Calcium 10.0 (8.6-10.3) mg/dl Total Bilirubin 0.6 (0.2-1.0) mg/dl AST 12 L (13-39) U/L ALT 14 (7-52) U/L Alkaline Phosphatase 52 (34-104) U/L Troponin I High Sens 22.3 H (0-20) pg/ml Total Protein 6.6 (6.0-8.3) gm/dl Albumin 3.7 (3.4-5.0) gm/dl Globulin 2.9 (2.5-4.0) gm/dl Albumin/Globulin Ratio 1.3 (0.9-2) Lipase 38 (11-82) U/L Procalcitonin (0-0.5) ng/ml SARS-CoV-2, RNA, NAAT (NEGATIVE) 09/28/22 09/28/22 09/28/22 Range/Units 15:29 15:29 16:58 WBC (4.8-10.8) K/ul RBC (4.70-6.10) M/uL Hgb (14.0-18.0) g/dl Hct (42.0-52.0) % MCV (80.0-100.0) fL MCH (25.0-34.0) pg MCHC (32.0-36.0) g/dL RDW Std Deviation (36.4-46.3) fL RDW Coeff of Grace (11.5-14.5) % Plt Count (130-400) K/uL MPV (9.4-12.4) fL Immature Gran % (Auto) % Neut % (Auto) % Lymph % (Auto) % Rock % (Auto) % Eos % (Auto) % Baso % (Auto) % Neut # (Auto) (1.40-6.50) K/uL Lymph # (Auto) (1.2-3.4) K/uL Rock # (Auto) (0.11-0.59) K/uL Eos # (Auto) (0-0.50) K/uL Baso # (Auto) (0-0.2) K/uL Immature Gran # (Auto) (0.01-0.20) K/uL Polychromasia PT (9.0-12.0) Seconds INR (0.9-1.1) Sodium (136-145) mmol/L Potassium (3.5-5.1) mmol/L Chloride (98-107) mmol/L Carbon Dioxide (21-32) mmol/L Anion Gap (3-11) BUN (6-23) mg/dl Creatinine (0.6-1.4) mg/dl Est Cr Clr Drug Dosing ml/min Est GFR ( Amer) ml/min Est GFR (Non-Af Amer) ml/min BUN/Creatinine Ratio (10-20) Glucose (70-99(Fasting)) mg/dl Lactate 1.2 (0.4-2.0) mmol/L Calcium (8.6-10.3) mg/dl Total Bilirubin (0.2-1.0) mg/dl AST (13-39) U/L ALT (7-52) U/L Alkaline Phosphatase (34-104) U/L Troponin I High Sens (0-20) pg/ml Total Protein (6.0-8.3) gm/dl Albumin (3.4-5.0) gm/dl Globulin (2.5-4.0) gm/dl Albumin/Globulin Ratio (0.9-2) Lipase (11-82) U/L Procalcitonin 1.21 H (0-0.5) ng/ml SARS-CoV-2, RNA, NAAT NEGATIVE (NEGATIVE) Administered Medications Discontinued Medications Sodium Chloride (Nss 1000ml) 500 mls @ 999 mls/hr IV .Q31M ONE Stop: 09/28/22 17:17 Last Infusion: 09/28/22 17:39 Dose: 0 mls/hr Documented By: Admin: 09/28/22 17:06 Dose: 999 mls/hr Documented By: AM Imaging Data Radiologist's Impression: Abdomen/Pelvis CT 09/28/22 15:20 CT abd pelvis wo con CLINICAL HISTORY: RLQ pain, recent uti TECHNIQUE: Helical axial images of the abdomen and pelvis were obtained. Automated dose lowering techniques and/or adjustment according to patient size were utilized for this exam. This exam was performed without intravenous contrast. CT DOSE: 1060.02 mGy.cm COMPARISON: Comparison is made to CT abdomen pelvis 08/02/2011 FINDINGS: Lower chest: Atelectasis is seen in the right greater than left lower lung. Liver: Unremarkable. No focal lesions are seen. Gallbladder and biliary tree: The gallbladder is contracted. No intra- or extrahepatic biliary ductal dilation. Pancreas: Unremarkable, no focal lesions. Spleen: Unremarkable. Adrenals: Unremarkable. Kidneys and ureters: Innumerable renal cysts are seen. Fat stranding is seen about the left Bladder: Diffuse homogeneous wall thickening is seen. Reproductive organs: Prostatomegaly is seen. Bowel: Diverticulosis is seen without evidence of diverticulitis. The appendix is unremarkable. Lymph nodes Retroperitoneal: Unremarkable. Pelvic: Unremarkable. Mesenteric: Unremarkable. Peritoneum: Normal. Vessels: Atherosclerotic calcifications are seen. Abdominal wall: A fat-containing umbilical hernia is seen. Bilateral left greater than right fat-containing inguinal hernias noted. Bones: Degenerative changes in the visualized spine. IMPRESSION: 1. Interval developing of fat stranding about the left kidney without evidence of obstruction or hydronephrosis. Findings are nonspecific, clinical correlation is recommended to exclude infectious process. 2. Otherwise no acute abnormalities, the appendix is normal. 3. Numerous renal cysts are seen. 4. Prostatomegaly and bladder wall thickening compatible with chronic outlet obstruction noted. 5. Additional findings as above. ACT 112: Negative or not required by law. Electronically signed by: Keith Khoury M.D. 09/28/2022 4:10 PM Discharge Plan Visit Data Chief Complaint: Abdominal Pain Stated Complaint: ABDOMINAL PAIN LRQ ED Provider: Geovanni Andres Discharge Problem: Complicated UTI (urinary tract infection), CKD (chronic kidney disease) stage 5, GFR less than 15 ml/min, Urinary tract infection due to Pseudomonas aeruginosa Patient Disposition: Being Evaluated by Hospitalist Condition: Fair Prescriptions Prescriptions: No Action amlodipine 5 mg Tablet 5 mg PO HS atorvastatin 80 mg tablet 80 mg PO HS clopidogrel 75 mg tablet 75 mg PO QAM finasteride 5 mg tablet 5 mg PO QAM calcitriol 0.5 mcg capsule 0.5 mcg PO QAM 1 mg Tablet 1 tab PO DAILY aspirin [Baby Aspirin] 81 mg Tablet,Chewable 81 mg PO DAILY Referrals Referrals: Mike Maki MD [Primary Care Provider] -
[2022-09-28 15:46] LABS: Hematocrit (blood only) 39.9 % (42.0-52.0); Hemoglobin 12.5 g/dl (14.0-18.0); Mean Corpuscular Hemoglobin 32.4 pg (25.0-34.0); Mean Corpuscular Hgb Conc 31.3 g/dL (32.0-36.0); Mean Corpuscular Volume 103.4 fL (80.0-100.0); Mean Platelet Volume 11.2 fL (9.4-12.4); Platelet Count 171 K/uL (130-400); RDW Coefficient of Variation 14.9 % (11.5-14.5); RDW Standard Deviation 55.6 fL (36.4-46.3); Red Blood Count 3.86 M/uL (4.70-6.10); White Blood Count 22.79 K/ul (4.8-10.8)
[2022-09-28 16:05] LABS: Basophils # (auto) 0.08 K/uL (0-0.2); Basophils % (auto) 0.4 %; Eosinophils # (auto) 0.02 K/uL (0-0.50); Eosinophils % (auto) 0.1 %; Immature Granulocytes # (auto) 0.12 K/uL (0.01-0.20); Immature Granulocytes % (auto) 0.5 %; Lymphocytes # (auto) 1.01 K/uL (1.2-3.4); Lymphocytes % (auto) 4.4 %; Monocytes # (auto) 1.41 K/uL (0.11-0.59); Monocytes % (auto) 6.2 %; Neutrophils # (auto) 20.15 K/uL (1.40-6.50); Neutrophils % (auto) 88.4 %; Polychromasia 1+
[2022-09-28 16:10] LABS: INR 1.1 (0.9-1.1); Prothrombin Time 11.5 Seconds (9.0-12.0)
--- NOTE | 2022-09-28 16:13 | CT Scan Report ---
CT abd pelvis wo con CLINICAL HISTORY: RLQ pain, recent uti TECHNIQUE: Helical axial images of the abdomen and pelvis were obtained. Automated dose lowering tech niques and/or adjustment according to patient size were utilized for this exam. This exam was perfor med without intravenous contrast. CT DOSE: 1060.02 mGy.cm COMPARISON: Comparison is made to CT abdomen pelvis 08/02/2011 FINDINGS: Lower chest: Atelectasis is seen in the right greater than left lower lung. Liver: Unremarkable. No focal lesions are seen. Gallbladder and biliary tree: The gallbladder is contracted. No intra- or extrahepatic biliary ductal dilation. Pancreas: Unremarkable, no focal lesions. Spleen: Unremarkable. Adrenals: Unremarkable. Kidneys and ureters: Innumerable renal cysts are seen. Fat stranding is seen about the left Bladder: Diffuse homogeneous wall thickening is seen. Reproductive organs: Prostatomegaly is seen. Bowel: Diverticulosis is seen without evidence of diverticulitis. The appendix is unremarkable. Lymph nodes Retroperitoneal: Unremarkable. Pelvic: Unremarkable. Mesenteric: Unremarkable. Peritoneum: Normal. Vessels: Atherosclerotic calcifications are seen. Abdominal wall: A fat-containing umbilical hernia is seen. Bilateral left greater than right fat-cont aining inguinal hernias noted. Bones: Degenerative changes in the visualized spine. IMPRESSION: 1. Interval developing of fat stranding about the left kidney without evidence of obstruction or hyd ronephrosis. Findings are nonspecific, clinical correlation is recommended to exclude infectious proc ess. 2. Otherwise no acute abnormalities, the appendix is normal. 3. Numerous renal cysts are seen. 4. Prostatomegaly and bladder wall thickening compatible with chronic outlet obstruction noted. 5. Additional findings as above. ACT 112: Negative or not required by law. Electronically signed by: Keith Khoury M.D. 09/28/2022 4:10 PM
[2022-09-28 16:27] LABS: Albumin Globulin Ratio 1.3 (0.9-2); Albumin Level 3.7 gm/dl (3.4-5.0); BUN Creatinine Ratio 10.9 (10-20); Bilirubin,Total 0.6 mg/dl (0.2-1.0); Creatinine Clr Calc Pharmacy 12.3 ml/min; Est GFR (African American) 10.5 ml/min; Globulin 2.9 gm/dl (2.5-4.0); Potassium 4.8 mmol/L (3.5-5.1); Total Protein 6.6 gm/dl (6.0-8.3); Troponin I High Sensitivity 22.3 pg/ml (0-20)
[2022-09-28] MEDS ORDERED: MEROPENEM 500 MG in SYRINGE 0 ML IV ONE (16:35)
[2022-09-28] MEDS ORDERED: SODIUM CHLORIDE 0.9% 1000ML 500 ML IV ONE (16:47)
--- NOTE | 2022-09-28 17:26 | History & Physical Report ---
Date of Service September 28, 2022 Assessment & Plan (1) UTI (urinary tract infection): (2) CKD (chronic kidney disease) stage 5, GFR less than 15 ml/min: (3) Hypertension: Plan Complicated UTI/?Pyelonephritis- Recent pseudomonas UTI and treated with fosfomycin. UA suggestive of UTI, prior urine culture with Pseudomonas resistant to cefepime. Given meropenem in ED, continue meropenem pending final blood and urine clx results. Consult ID once clx results available. - Does not meet SIRS or sepsis criteria. WBC 12, procal 1.2. CT A/P 1. Interval developing of fat stranding about the left kidney without evidence of obstruction or hydronephrosis. Findings are nonspecific, clinical correlation is recommended to exclude infectious process. 2. Otherwise no acute abnormalities, the appendix is normal. 3. Numerous renal cysts are seen. 4. Prostatomegaly and bladder wall thickening compatible with chronic outlet obstruction noted. CKD5- Baseline around 5, currently 5.58. Cr relatively stable. Avoid nephrotoxics. Follows with nephro HTN- continue amlodipine with hold parameters History of CAD status post stent- denies any CP whatsoever. Trop minimally elevated, likely in setting of his CKD, doubt ACS. EKG reviewed, abnormal but no recent EKG to compare. Will repeat trop and EKG for completeness and monitor on tele. Continue ASA, plavix, statin. Cardio eval if needed. DVT prophylaxis-subcu heparin Disposition-admit to inpatient, [facility] Full code Updated at bedside and answered all questions History of Present Illness Chief Complaint: RLQ pain Primary Care Provider: Mike Maki MD 76-year-old male with history of CAD status post stenting, status post bioprosthetic AVR, hypertension, hyperlipidemia, CKD stage V (on transplant list but declined multiple times already), BPH status post surgery, bladder cancer, who presented to ED with right lower quadrant pain for 1 day. He states that the pain was building up for about a week and was acutely worsened yesterday. States he had cystoscopic evaluation 3 weeks ago, found to have abnormal urine during evaluation and urine culture was positive for Pseudomonas for which he was treated with antibiotics. States he normally does not get any symptoms with UTI and this is the first time he is having symptoms. Pain mostly in right lower quadrant and groin. Also had some right flank pain. States pain is controlled as long as he does not move. He denies any fever, chills, nausea, vomiting, dysuria, diarrhea. He still makes urine but denies any change in color or odor of urine. He states he takes all his medications around 2 AM. Denies smoking or drinking alcohol Allergies Allergy/AdvReac Type Severity Reaction Status Date / Time cephalexin Allergy Severe Tongue and Verified 09/28/22 16:56 face swelling tamsulosin Allergy Severe angioedema Verified 09/28/22 16:56 Home Medications Medication Instructions Recorded Confirmed Type amlodipine 5 mg tablet 5 mg PO HS 07/26/18 09/28/22 History atorvastatin 80 mg tablet 80 mg PO HS 07/01/22 09/28/22 History clopidogrel 75 mg tablet 75 mg PO QAM 07/01/22 09/28/22 History finasteride 5 mg tablet 5 mg PO QAM 07/01/22 09/28/22 History aspirin 81 mg chewable tablet 81 mg PO DAILY 07/04/22 09/28/22 History [id number]-[id number]-Ax-FA 1 mg 1 tab PO DAILY 07/04/22 09/28/22 History tablet calcitriol 0.5 mcg capsule 0.5 mcg PO QAM 09/28/22 09/28/22 History Past Med/Surg History Medical History Aortic valve stenosis BPH (benign prostatic hyperplasia) Chronic kidney disease, stage 4 (severe) per pt, states he is not on dialysis History of bladder infections Hyperlipidemia Hypertension Surgical History History of arthroscopy of left knee History of colonoscopy History of orchiectomy, unilateral Family History Mother Family history of diabetes mellitus Father Family hx of colon cancer Other No family history of adverse response to anesthesia Social History Smoking Status: Former smoker Second Hand Exposure: No; Do You Dip or Chew Tobacco: No; Hx Alcohol Use: No Hx Substance Use: No Preferred Language: Ethiopian Communication Ability: Effective 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 Beliefs That Will Affect Care: None Current Living Situation: Spouse Feels Safe at Home: Yes Assistive Devices: None Review of Systems Review of Systems: All systems reviewed & are unremarkable except as noted in Subjective Physical Exam Physical Exam: General: Lying in bed, in mild distress due to pain, on room air HEENT: EOMI, HERNAN, MMM Chest: Clear breath sounds bilaterally, no wheezes or crackles CVS: Regular rate and rhythm, normal heart sounds, no murmur Abdomen: Soft, tender to palpation of right lower quadrant, distended, umbilical hernia, bowel sounds present Neuro: Awake, alert, oriented, conversing well, non focal Extremities: No cyanosis, clubbing or edema Results & Data Results & Data Vital Signs (Past 12 Hours) Vital Signs Temp Pulse Resp BP Pulse Ox O2 Del Method 09/28/22 16:04 89 09/28/22 14:59 37 C 96 H 14 119/73 93 Room Air Laboratory Results Short CBC 09/28/22 Range/Units 15:29 WBC 22.79 H (4.8-10.8) K/ul Hgb 12.5 L (14.0-18.0) g/dl Hct 39.9 L (42.0-52.0) % Plt Count 171 (130-400) K/uL BMP 09/28/22 15:29 Sodium 139 Potassium 4.8 Chloride 110 H Carbon Dioxide 23 BUN 61 H Creatinine 5.58 H* Glucose 163 H Calcium 10.0 Liver Function 09/28/22 Range/Units 15:29 Total Bilirubin 0.6 (0.2-1.0) mg/dl AST 12 L (13-39) U/L ALT 14 (7-52) U/L Alkaline Phosphatase 52 (34-104) U/L Albumin 3.7 (3.4-5.0) gm/dl Diagnostic Findings Abdomen/Pelvis CT 09/28/22 15:20 CT abd pelvis wo con CLINICAL HISTORY: RLQ pain, recent uti TECHNIQUE: Helical axial images of the abdomen and pelvis were obtained. Automated dose lowering techniques and/or adjustment according to patient size were utilized for this exam. This exam was performed without intravenous co ntrast. CT DOSE: 1060.02 mGy.cm COMPARISON: Comparison is made to CT abdomen pelvis 08/02/2011 FINDINGS: Lower chest: Atelectasis is seen in the right greater than left lower lung. Liver: Unremarkable. No focal lesions are seen. Gallbladder and biliary tree: The gallbladder is contracted. No intra- or extrahepatic biliary ductal dilation. Pancreas: Unremarkable, no focal lesions. Spleen: Unremarkable. Adrenals: Unremarkable. Kidneys and ureters: Innumerable renal cysts are seen. Fat stranding is seen about the left Bladder: Diffuse homogeneous wall thickening is seen. Reproductive organs: Prostatomegaly is seen. Bowel: Diverticulosis is seen without evidence of diverticulitis. The appendix is unremarkable. Lymph nodes Retroperitoneal: Unremarkable. Pelvic: Unremarkable. Mesenteric: Unremarkable. Peritoneum: Normal. Vessels: Atherosclerotic calcifications are seen. Abdominal wall: A fat-containing umbilical hernia is seen. Bilateral left greater than right fat-containing inguinal hernias noted. Bones: Degenerative changes in the visualized spine. IMPRESSION: 1. Interval developing of fat stranding about the left kidney without evidence of obstruction or hydronephrosis. Findings are nonspecific, clinical correlation is recommended to exclude infectious process. 2. Otherwise no acute abnormalities, the appendix is normal. 3. Numerous renal cysts are seen. 4. Prostatomegaly and bladder wall thickening compatible with chronic outlet obstruction noted. 5. Additional findings as above. ACT 112: Negative or not required by law. Electronically signed by: Keith Khoury M.D. 09/28/2022 4:10 PM
[2022-09-28 17:42] LABS: Appearance Urine Cloudy (Clear); Bacteria Urine Automated 2+ (Negative); Bilirubin Urine Negative (Negative); Blood Urine 2+ (Negative); Color Urine Yellow; Epithelial Cell Urine Auto 0-5 /lpf (0-5); Glucose Urine UA Trace (Negative); Ketones Urine Negative (Negative); Leukocyte Esterase Urine 2+ (Negative); Nitrite Urine Positive (Negative); Protein Urine 2+ (Negative); RBC Urine Automated 0-4 /hpf (0-4); Specific Gravity Urine 1.014 (1.000-1.030); Urobilinogen Urine Negative (Negative); WBC Urine Automated >30 /hpf (0-5)
[2022-09-28] MEDS ORDERED: ACETAMINOPHEN 500 MG TAB PO PRN (19:36)
[2022-09-28] MEDS ORDERED: oxyCODONE HCL IR 5 MG TAB (IMMEDIATE RELEASE) PO PRN (19:36)
[2022-09-28] MEDS ORDERED: ONDANSETRON INJ 2 MG/ML 2 ML VIAL IV PRN (19:36)
[2022-09-28] MEDS: HEPARIN SOD 5,000 UNIT/0.5 ML VIAL SQ SCH (21:01)
--- NOTE | 2022-09-28 22:01 | Communication Note ---
Date of Service: September 28, 2022 Notified by radiologist of CT abdomen pelvis read addendum: Irregularity at the proximal cecum may represent cecal diverticulitis. A contained perforation cannot be excluded. No pneumoperitoneum or drainable fluid collection is seen. AP Complicated diverticulitis n.p.o. Continue meropenem General surgery consult
[2022-09-29] MEDS ORDERED: SODIUM CHLORIDE 0.9% 1000ML 1,000 ML IV SCH (05:45)
[2022-09-29] MEDS: MEROPENEM 500 MG in SYRINGE 0 ML IV SCH ×2 (06:05→17:27)
--- NOTE | 2022-09-29 06:36 | Electrocardiogram Report ---
Test Reason : Blood Pressure : / mmHG Vent. Rate : 088 BPM Atrial Rate : 088 BPM P-R Int : 238 ms QRS Dur : 140 ms QT Int : 362 ms P-R-T Axes : 062 -87 042 degrees QTc Int : 438 ms Sinus rhythm with 1st degree A-V block Right bundle branch block Left anterior fascicular block Bifascicular block Abnormal ECG When compared with ECG of 03-APR-2011 16:18, AK interval has increased (RBBB and left anterior fascicular block) is now Present Confirmed by James Warner ([id number]) on 09/29/2022 6:36:16 AM Referred By: REFERRED SELF Confirmed By:James Warner
[2022-09-29 06:38] LABS: BUN Creatinine Ratio 10.8 (10-20); Calcium 10.1 mg/dl (8.6-10.3); Creatinine Clr Calc Pharmacy 12.8 ml/min; Est GFR (Non-African American) 9.5 ml/min; Potassium 4.6 mmol/L (3.5-5.1)
[2022-09-29 06:42] LABS: Basophils # (auto) 0.06 K/uL (0-0.2); Basophils % (auto) 0.3 %; Eosinophils # (auto) 0.17 K/uL (0-0.50); Eosinophils % (auto) 0.9 %; Hematocrit (blood only) 38.9 % (42.0-52.0); Hemoglobin 11.8 g/dl (14.0-18.0); Immature Granulocytes # (auto) 0.09 K/uL (0.01-0.20); Immature Granulocytes % (auto) 0.5 %; Lymphocytes # (auto) 1.14 K/uL (1.2-3.4); Lymphocytes % (auto) 6.2 %; Mean Corpuscular Hemoglobin 31.8 pg (25.0-34.0); Mean Corpuscular Hgb Conc 30.3 g/dL (32.0-36.0); Mean Corpuscular Volume 104.9 fL (80.0-100.0); Mean Platelet Volume 11.5 fL (9.4-12.4); Monocytes % (auto) 9.3 %; Neutrophils # (auto) 15.11 K/uL (1.40-6.50); Neutrophils % (auto) 82.8 %; Platelet Count 154 K/uL (130-400); RDW Coefficient of Variation 14.9 % (11.5-14.5); RDW Standard Deviation 57.7 fL (36.4-46.3); Red Blood Count 3.71 M/uL (4.70-6.10); White Blood Count 18.27 K/ul (4.8-10.8)
--- NOTE | 2022-09-29 08:55 | Electrocardiogram Report ---
Test Reason : Blood Pressure : / mmHG Vent. Rate : 092 BPM Atrial Rate : 092 BPM P-R Int : 244 ms QRS Dur : 136 ms QT Int : 366 ms P-R-T Axes : 068 -88 070 degrees QTc Int : 452 ms Sinus rhythm with 1st degree A-V block Right bundle branch block Left anterior fascicular block Bifascicular block Possible Lateral infarct , age undetermined Abnormal ECG When compared with ECG of 28-SEP-2022 15:34, (unconfirmed) No significant change was found Confirmed by Wagner Angeles ([id number]) on 09/29/2022 8:55:01 AM Referred By: REFERRED SELF Confirmed By:Vasu Angeles
[2022-09-29] MEDS: ATORVASTATIN 40 MG TAB PO SCH (09:54)
[2022-09-29] MEDS: FINASTERIDE 5 MG TAB PO SCH (09:54)
[2022-09-29] MEDS: amLODIPine BESYLATE 5 MG TAB PO SCH (09:54)
[2022-09-29] MEDS: CLOPIDOGREL BISULFATE 75 MG TAB PO SCH (09:54)
[2022-09-29] MEDS: CALCITRIOL 0.25 MCG CAPSULE PO SCH (09:54)
[2022-09-29] MEDS: ASPIRIN 81 MG ECTAB PO SCH (09:55)
[2022-09-29] MEDS: HEPARIN SOD 5,000 UNIT/0.5 ML VIAL SQ SCH (10:25)
--- NOTE | 2022-09-29 10:59 | Surgery Consultation ---
Date of Consultation September 29, 2022 Assessment & Plan (1) Cecal diverticulitis: (2) Complicated UTI (urinary tract infection): (3) CKD (chronic kidney disease) stage 5, GFR less than 15 ml/min: Plan 76 year-old male with history of recurrent UTIs and recent complicated UTI presented to ED with 1 week history of right sided abdominal/groin pain with increasing severity yesterday. CT scan showing evidence of some stranding around left kidney but also stranding around right colon suggestive of Cecal diverticulitis. WBC 22k on presentation. No signs of perforation. Plan: Dr. Daugherty has seen and examined patient, discussed CT scan findings with patient showing cecal diverticulitis. Discussed conservative management with patient including IV antibiotics, transitioning to oral antibiotics, and then will needed colonoscopy in 6-8 weeks for further evaluation. He is overdue for screening colonoscopy as his last was in 2018 and he was recommended to have repeat colonoscopy in 3 years for high risk colon cancer screening. Okay for clear liquids today follow cbc Discussed with Dr. Odell will follow along Dr. Daugherty has seen and examined pt, see addendum for further recommendations/plan. Supervising Physician Co-Signing Physician Notes I have seen and examined the patient personally and agree with the above assessment and plan. He has what appears to be cecal diverticulitis without evidence of free perforation or abscess. We will plan conservative management with IV antibiotics and observation. We may begin clear liquid diet. We will continue to follow. History of Present Illness Reason for Consultation: Cecal diverticulitis Requesting Physician: Dr. Sparks Attending Physician: Etelvina Odell MD History of Present Illness 76 year-old male with history of CKD stage 5, hypertension, BPH, recurrent UTI usually asymptomatic with recent Pseudomonas UTI treated outpatient now presented to emergency department with increasing right lower abdominal pain and groin pain. This pain has been increasing for last week but increasingly worse yesterday. Pain from belly button to right lower abdomen and flank area. Usually does not have any symptoms with his UTIs. Follows with Dr. [facility]. Denies of any fever, chills, nausea, vomiting, changes in bowel habits. Last colonoscopy per records and patient was in 2019 in which he was found to have sigmoid and ascending diverticulosis however no other findings. Allergies Allergy/AdvReac Type Severity Reaction Status Date / Time cephalexin Allergy Severe Tongue and Verified 09/28/22 16:56 face swelling tamsulosin Allergy Severe angioedema Verified 09/28/22 16:56 Home Medications Medication Instructions Recorded Confirmed Type amlodipine 5 mg tablet 5 mg PO HS 07/26/18 09/28/22 History atorvastatin 80 mg tablet 80 mg PO HS 07/01/22 09/28/22 History clopidogrel 75 mg tablet 75 mg PO QAM 07/01/22 09/28/22 History finasteride 5 mg tablet 5 mg PO QAM 07/01/22 09/28/22 History aspirin 81 mg chewable tablet 81 mg PO DAILY 07/04/22 09/28/22 History yoqnaqve-bjq-Sd-FA 1 mg 1 tab PO DAILY 07/04/22 09/28/22 History tablet calcitriol 0.5 mcg capsule 0.5 mcg PO QAM 09/28/22 09/28/22 History Patient History Medical History Aortic valve stenosis BPH (benign prostatic hyperplasia) Chronic kidney disease, stage 4 (severe) per pt, states he is not on dialysis History of bladder infections Hyperlipidemia Hypertension Surgical History History of arthroscopy of left knee History of colonoscopy History of orchiectomy, unilateral Family History Mother Family history of diabetes mellitus Father Family hx of colon cancer Other No family history of adverse response to anesthesia Social History Smoking Status: Never smoker Second Hand Exposure: No; Do You Dip or Chew Tobacco: No; Hx Alcohol Use: No Hx Substance Use: No Preferred Language: Latvian Communication Ability: Effective Marketing Team Lead Required: No Beliefs That Will Affect Care: None Current Living Situation: Spouse Feels Safe at Home: Yes Assistive Devices: None Physical Exam Constitutional: WD/WN, vitals as above + obese, cooperative and comfortable; no acute distress and not ill appearing Neck: normal visual inspection and trachea midline Respiratory: normal respiratory effort, lungs clear to auscultation Cardiovascular: RRR, no murmur, no edema Gastrointestinal (Abdomen): Inspection/Auscultation: abdomen normal to inspection; abdomen not distended Percussion/Palpation: + abdomen tender (RUQ and RLQ), + guarding (voluntary on palpation of right abdomen, no peritonitis) and abdomen soft; abdomen not rigid and abdomen not firm Skin: no rashes, warm and dry Psychiatric: Orientation: alert and oriented x 3 Results & Data Vital Signs (Past 12 Hours) Vital Signs Temp Pulse Pulse Resp BP BP Pulse Ox 09/29/22 08:00 92 H 09/29/22 07:55 37.6 C H 93 H 16 149/76 H 93 09/29/22 04:31 91 H 09/29/22 04:30 36.8 C 91 H 20 142/75 H 93 09/29/22 04:29 16 149/84 H 91 09/28/22 23:40 91 H O2 Del Method 09/29/22 08:00 09/29/22 07:55 Room Air 09/29/22 04:31 09/29/22 04:30 Room Air 09/29/22 04:29 Room Air 09/28/22 23:40 Laboratory Results 09/29/22 09/29/22 09/28/22 Range/Units 05:53 05:53 20:32 WBC 18.27 H (4.8-10.8) K/ul RBC 3.71 L (4.70-6.10) M/uL Hgb 11.8 L (14.0-18.0) g/dl Hct 38.9 L (42.0-52.0) % MCV 104.9 H (80.0-100.0) fL MCH 31.8 (25.0-34.0) pg MCHC 30.3 L (32.0-36.0) g/dL RDW Std Deviation 57.7 H (36.4-46.3) fL RDW Coeff of Grace 14.9 H (11.5-14.5) % Plt Count 154 (130-400) K/uL MPV 11.5 (9.4-12.4) fL Immature Gran % (Auto) 0.5 % Neut % (Auto) 82.8 % Lymph % (Auto) 6.2 % [place] % (Auto) 9.3 % Eos % (Auto) 0.9 % Baso % (Auto) 0.3 % Neut # (Auto) 15.11 H (1.40-6.50) K/uL Lymph # (Auto) 1.14 L (1.2-3.4) K/uL [place] # (Auto) 1.70 H (0.11-0.59) K/uL Eos # (Auto) 0.17 (0-0.50) K/uL Baso # (Auto) 0.06 (0-0.2) K/uL Immature Gran # (Auto) 0.09 (0.01-0.20) K/uL Polychromasia PT (9.0-12.0) Seconds INR (0.9-1.1) Sodium 140 (136-145) mmol/L Potassium 4.6 (3.5-5.1) mmol/L Chloride 109 H (98-107) mmol/L Carbon Dioxide 24 (21-32) mmol/L Anion Gap 7 (3-11) BUN 58 H (6-23) mg/dl Creatinine 5.36 H* (0.6-1.4) mg/dl Est Cr Clr Drug Dosing 12.8 ml/min Est GFR ( Amer) 11.0 ml/min Est GFR (Non-Af Amer) 9.5 ml/min BUN/Creatinine Ratio 10.8 (10-20) Glucose 128 H (70-99(Fasting)) mg/dl Lactate (0.4-2.0) mmol/L Calcium 10.1 (8.6-10.3) mg/dl Total Bilirubin (0.2-1.0) mg/dl AST (13-39) U/L ALT (7-52) U/L Alkaline Phosphatase (34-104) U/L Troponin I High Sens 21.0 H 25.2 H (0-20) pg/ml Total Protein (6.0-8.3) gm/dl Albumin (3.4-5.0) gm/dl Globulin (2.5-4.0) gm/dl Albumin/Globulin Ratio (0.9-2) Lipase (11-82) U/L Procalcitonin (0-0.5) ng/ml Urine Color Urine Appearance (Clear) Urine pH (4.5-7.5) Ur Specific [place] (1.000-1.030) Urine Protein (Negative) Urine Glucose (UA) (Negative) Urine Ketones (Negative) Urine Blood (Negative) Urine Nitrite (Negative) Urine Bilirubin (Negative) Urine Urobilinogen (Negative) Ur Leukocyte Esterase (Negative) Urine WBC (Auto) (0-5) /hpf Urine RBC (Auto) (0-4) /hpf U Hyaline Cast (Auto) (0-5) /lpf U Epithel Cells (Auto) (0-5) /lpf Urine Bacteria (Auto) (Negative) SARS-CoV-2, RNA, NAAT (NEGATIVE) 09/28/22 09/28/22 09/28/22 Range/Units 17:30 16:58 15:29 WBC (4.8-10.8) K/ul RBC (4.70-6.10) M/uL Hgb (14.0-18.0) g/dl Hct (42.0-52.0) % MCV (80.0-100.0) fL MCH (25.0-34.0) pg MCHC (32.0-36.0) g/dL RDW Std Deviation (36.4-46.3) fL RDW Coeff of Grace (11.5-14.5) % Plt Count (130-400) K/uL MPV (9.4-12.4) fL Immature Gran % (Auto) % Neut % (Auto) % Lymph % (Auto) % [place] % (Auto) % Eos % (Auto) % Baso % (Auto) % Neut # (Auto) (1.40-6.50) K/uL Lymph # (Auto) (1.2-3.4) K/uL [place] # (Auto) (0.11-0.59) K/uL Eos # (Auto) (0-0.50) K/uL Baso # (Auto) (0-0.2) K/uL Immature Gran # (Auto) (0.01-0.20) K/uL Polychromasia PT (9.0-12.0) Seconds INR (0.9-1.1) Sodium (136-145) mmol/L Potassium (3.5-5.1) mmol/L Chloride (98-107) mmol/L Carbon Dioxide (21-32) mmol/L Anion Gap (3-11) BUN (6-23) mg/dl Creatinine (0.6-1.4) mg/dl Est Cr Clr Drug Dosing ml/min Est GFR ( Amer) ml/min Est GFR (Non-Af Amer) ml/min BUN/Creatinine Ratio (10-20) Glucose (70-99(Fasting)) mg/dl Lactate 1.2 (0.4-2.0) mmol/L Calcium (8.6-10.3) mg/dl Total Bilirubin (0.2-1.0) mg/dl AST (13-39) U/L ALT (7-52) U/L Alkaline Phosphatase (34-104) U/L Troponin I High Sens (0-20) pg/ml Total Protein (6.0-8.3) gm/dl Albumin (3.4-5.0) gm/dl Globulin (2.5-4.0) gm/dl Albumin/Globulin Ratio (0.9-2) Lipase (11-82) U/L Procalcitonin (0-0.5) ng/ml Urine Color Yellow Urine Appearance Cloudy A (Clear) Urine pH 7.0 (4.5-7.5) Ur Specific [place] 1.014 (1.000-1.030) Urine Protein 2+ H (Negative) Urine Glucose (UA) Trace H (Negative) Urine Ketones Negative (Negative) Urine Blood 2+ H (Negative) Urine Nitrite Positive A (Negative) Urine Bilirubin Negative (Negative) Urine Urobilinogen Negative (Negative) Ur Leukocyte Esterase 2+ H (Negative) Urine WBC (Auto) >30 H (0-5) /hpf Urine RBC (Auto) 0-4 (0-4) /hpf U Hyaline Cast (Auto) 1-5 (0-5) /lpf U Epithel Cells (Auto) 0-5 (0-5) /lpf Urine Bacteria (Auto) 2+ H (Negative) SARS-CoV-2, RNA, NAAT NEGATIVE (NEGATIVE) 09/28/22 09/28/22 09/28/22 Range/Units 15:29 15:29 15:29 WBC (4.8-10.8) K/ul RBC (4.70-6.10) M/uL Hgb (14.0-18.0) g/dl Hct (42.0-52.0) % MCV (80.0-100.0) fL MCH (25.0-34.0) pg MCHC (32.0-36.0) g/dL RDW Std Deviation (36.4-46.3) fL RDW Coeff of Grace (11.5-14.5) % Plt Count (130-400) K/uL MPV (9.4-12.4) fL Immature Gran % (Auto) % Neut % (Auto) % Lymph % (Auto) % [place] % (Auto) % Eos % (Auto) % Baso % (Auto) % Neut # (Auto) (1.40-6.50) K/uL Lymph # (Auto) (1.2-3.4) K/uL [place] # (Auto) (0.11-0.59) K/uL Eos # (Auto) (0-0.50) K/uL Baso # (Auto) (0-0.2) K/uL Immature Gran # (Auto) (0.01-0.20) K/uL Polychromasia PT 11.5 (9.0-12.0) Seconds INR 1.1 (0.9-1.1) Sodium 139 (136-145) mmol/L Potassium 4.8 (3.5-5.1) mmol/L Chloride 110 H (98-107) mmol/L Carbon Dioxide 23 (21-32) mmol/L Anion Gap 6 (3-11) BUN 61 H (6-23) mg/dl Creatinine 5.58 H* (0.6-1.4) mg/dl Est Cr Clr Drug Dosing 12.3 ml/min Est GFR ( Amer) 10.5 ml/min Est GFR (Non-Af Amer) 9.0 ml/min BUN/Creatinine Ratio 10.9 (10-20) Glucose 163 H (70-99(Fasting)) mg/dl Lactate (0.4-2.0) mmol/L Calcium 10.0 (8.6-10.3) mg/dl Total Bilirubin 0.6 (0.2-1.0) mg/dl AST 12 L (13-39) U/L ALT 14 (7-52) U/L Alkaline Phosphatase 52 (34-104) U/L Troponin I High Sens 22.3 H (0-20) pg/ml Total Protein 6.6 (6.0-8.3) gm/dl Albumin 3.7 (3.4-5.0) gm/dl Globulin 2.9 (2.5-4.0) gm/dl Albumin/Globulin Ratio 1.3 (0.9-2) Lipase 38 (11-82) U/L Procalcitonin 1.21 H (0-0.5) ng/ml Urine Color Urine Appearance (Clear) Urine pH (4.5-7.5) Ur Specific [place] (1.000-1.030) Urine Protein (Negative) Urine Glucose (UA) (Negative) Urine Ketones (Negative) Urine Blood (Negative) Urine Nitrite (Negative) Urine Bilirubin (Negative) Urine Urobilinogen (Negative) Ur Leukocyte Esterase (Negative) Urine WBC (Auto) (0-5) /hpf Urine RBC (Auto) (0-4) /hpf U Hyaline Cast (Auto) (0-5) /lpf U Epithel Cells (Auto) (0-5) /lpf Urine Bacteria (Auto) (Negative) SARS-CoV-2, RNA, NAAT (NEGATIVE) 09/28/22 Range/Units 15:29 WBC 22.79 H (4.8-10.8) K/ul RBC 3.86 L (4.70-6.10) M/uL Hgb 12.5 L (14.0-18.0) g/dl Hct 39.9 L (42.0-52.0) % MCV 103.4 H (80.0-100.0) fL MCH 32.4 (25.0-34.0) pg MCHC 31.3 L (32.0-36.0) g/dL RDW Std Deviation 55.6 H (36.4-46.3) fL RDW Coeff of Grace 14.9 H (11.5-14.5) % Plt Count 171 (130-400) K/uL MPV 11.2 (9.4-12.4) fL Immature Gran % (Auto) 0.5 % Neut % (Auto) 88.4 % Lymph % (Auto) 4.4 % [place] % (Auto) 6.2 % Eos % (Auto) 0.1 % Baso % (Auto) 0.4 % Neut # (Auto) 20.15 H (1.40-6.50) K/uL Lymph # (Auto) 1.01 L (1.2-3.4) K/uL [place] # (Auto) 1.41 H (0.11-0.59) K/uL Eos # (Auto) 0.02 (0-0.50) K/uL Baso # (Auto) 0.08 (0-0.2) K/uL Immature Gran # (Auto) 0.12 (0.01-0.20) K/uL Polychromasia 1+ PT (9.0-12.0) Seconds INR (0.9-1.1) Sodium (136-145) mmol/L Potassium (3.5-5.1) mmol/L Chloride (98-107) mmol/L Carbon Dioxide (21-32) mmol/L Anion Gap (3-11) BUN (6-23) mg/dl Creatinine (0.6-1.4) mg/dl Est Cr Clr Drug Dosing ml/min Est GFR ( Amer) ml/min Est GFR (Non-Af Amer) ml/min BUN/Creatinine Ratio (10-20) Glucose (70-99(Fasting)) mg/dl Lactate (0.4-2.0) mmol/L Calcium (8.6-10.3) mg/dl Total Bilirubin (0.2-1.0) mg/dl AST (13-39) U/L ALT (7-52) U/L Alkaline Phosphatase (34-104) U/L Troponin I High Sens (0-20) pg/ml Total Protein (6.0-8.3) gm/dl Albumin (3.4-5.0) gm/dl Globulin (2.5-4.0) gm/dl Albumin/Globulin Ratio (0.9-2) Lipase (11-82) U/L Procalcitonin (0-0.5) ng/ml Urine Color Urine Appearance (Clear) Urine pH (4.5-7.5) Ur Specific [place] (1.000-1.030) Urine Protein (Negative) Urine Glucose (UA) (Negative) Urine Ketones (Negative) Urine Blood (Negative) Urine Nitrite (Negative) Urine Bilirubin (Negative) Urine Urobilinogen (Negative) Ur Leukocyte Esterase (Negative) Urine WBC (Auto) (0-5) /hpf Urine RBC (Auto) (0-4) /hpf U Hyaline Cast (Auto) (0-5) /lpf U Epithel Cells (Auto) (0-5) /lpf Urine Bacteria (Auto) (Negative) SARS-CoV-2, RNA, NAAT (NEGATIVE) Diagnostic Findings ADDENDUM Irregularity at the proximal cecum may represent cecal diverticulitis. A contained perforation cannot be excluded. No pneumoperitoneum or drainable fluid collection is seen. Findings were discussed with the patient's physician Dr. Patel at 2202 hours. Electronically signed by: Keith Khoury M.D. 09/28/2022 10:[address] abd pelvis wo con CLINICAL HISTORY: RLQ pain, recent uti TECHNIQUE: Helical axial images of the abdomen and pelvis were obtained. Automated dose lowering techniques and/or adjustment according to patient size were utilized for this exam. This exam was performed without intravenous contrast. CT DOSE: 1060.02 mGy.cm COMPARISON: Comparison is made to CT abdomen pelvis 08/02/2011 FINDINGS: Lower chest: Atelectasis is seen in the right greater than left lower lung. Liver: Unremarkable. No focal lesions are seen. Gallbladder and biliary tree: The gallbladder is contracted. No intra- or extrahepatic biliary ductal dilation. Pancreas: Unremarkable, no focal lesions. Spleen: Unremarkable. Adrenals: Unremarkable. Kidneys and ureters: Innumerable renal cysts are seen. Fat stranding is seen about the left Bladder: Diffuse homogeneous wall thickening is seen. Reproductive organs: Prostatomegaly is seen. Bowel: Diverticulosis is seen without evidence of diverticulitis. The appendix is unremarkable. Lymph nodes Retroperitoneal: Unremarkable. Pelvic: Unremarkable. Mesenteric: Unremarkable. Peritoneum: Normal. Vessels: Atherosclerotic calcifications are seen. Abdominal wall: A fat-containing umbilical hernia is seen. Bilateral left greater than right fat-containing inguinal hernias noted. Bones: Degenerative changes in the visualized spine. IMPRESSION: 1. Interval developing of fat stranding about the left kidney without evidence of obstruction or hydronephrosis. Findings are nonspecific, clinical correlation is recommended to exclude infectious process. 2. Otherwise no acute abnormalities, the appendix is normal. 3. Numerous renal cysts are seen. 4. Prostatomegaly and bladder wall thickening compatible with chronic outlet obstruction noted. 5. Additional findings as above. ACT 112: Negative or not required by law. Electronically signed by: Keith Khoury M.D. 09/28/2022 4:10 PM
--- NOTE | 2022-09-29 11:44 | Hospitalist Progress Note ---
Date of Service September 29, 2022 Assessment & Plan (1) UTI (urinary tract infection): (2) CKD (chronic kidney disease) stage 5, GFR less than 15 ml/min: (3) Hypertension: (4) Diverticulitis of ascending colon: Plan Complicated UTI Possible Pyelonephritis based on CT Recent pseudomonas UTI and treated with fosfomycin. UA suggestive of UTI, prior urine culture with Pseudomonas resistant to cefepime. Does not meet SIRS or sepsis criteria. WBC 12, procal 1.2. CT A/P 1. Interval developing of fat stranding about the left kidney without evidence of obstruction or hydronephrosis. Findings are nonspecific, clinical correlation is recommended to exclude infectious process. 2. Otherwise no acute abnormalities, the appendix is normal. 3. Numerous renal cysts are seen. 4. Prostatomegaly and bladder wall thickening compatible with chronic outlet obstruction noted. Irregularity at the proximal cecum may represent cecal diverticulitis. A contained perforation cannot be excluded. No pneumoperitoneum or drainable fluid collection is seen Currently on IV meropenem Will follow up urine and blood cultures CT noted findings of cecal diverticulitis. No sign of perforation on my review Discussed with surgical team who agrees. Clear liquid diet. Advance as tolerated CKD5 Baseline around 5 Currently stable at 5.36. Avoid nephrotoxics. Follows with nephro Hypertension Continue amlodipine with hold parameters History of CAD status post stent Denies any CP whatsoever. Trop borderline/minimally elevated, likely in setting of his CKD. Continue ASA, plavix, statin. Reviewed EKG. Has RBBB. Looks similar to EKG from 07/30/22 on [facility] Continue tele monitoring DVT prophylaxis-SCD/Ambulate. Patient requested hep sq stopped due to ecchymoses. Disposition-admit to inpatient, [facility] Full code I spent a total of 50 minutes coordinating, documenting and providing care for this patient excluding time spent in performance of separately billed services Admission and Anticipated Discharge Date Admission Date: September 28, 2022 Subjective Patient seen and examined Reports Right lower abd pain Denied nausea, vomiting, diarrhea, constipation, hematochezia, melena Denied dysuria, freq, urgency, hematuria Denied fever, chills Denied chest pain, cough, SOB Physical Exam Constitutional: + well hydrated; no acute distress Eyes: PERRL, conjunctivae normal, anicteric sclerae ENMT: external ear and nose normal, oropharynx normal Respiratory: normal respiratory effort, lungs clear to auscultation Cardiovascular: Rate/Rhythm: regular rate and regular rhythm S1 S2 Gastrointestinal (Abdomen): Inspection/Auscultation: abdomen normal to inspection and normal bowel sounds; abdomen not distended Percussion/Palpation: + abdomen tender (RLQ); no guarding and abdomen not rigid Musculoskeletal: no cyanosis or clubbing, extremities motor strength 5/5 Neurologic: PERRL, EOMI, accommodation nl, no face palsy, no dysarthria Psychiatric: A+Ox3, euthymic affect Results & Data Results & Data Vital Signs (Past 12 Hours) Vital Signs Temp Pulse Pulse Resp BP BP Pulse Ox 09/29/22 08:00 92 H 09/29/22 07:55 37.6 C H 93 H 16 149/76 H 93 09/29/22 04:31 91 H 09/29/22 04:30 36.8 C 91 H 20 142/75 H 93 09/29/22 04:29 16 149/84 H 91 09/28/22 23:40 91 H O2 Del Method 09/29/22 08:00 09/29/22 07:55 Room Air 09/29/22 04:31 09/29/22 04:30 Room Air 09/29/22 04:29 Room Air 09/28/22 23:40 Laboratory Results Abnormal lab results 09/28/22 09/28/22 09/28/22 Range/Units 15:29 15:29 15:29 WBC 22.79 H (4.8-10.8) K/ul RBC 3.86 L (4.70-6.10) M/uL Hgb 12.5 L (14.0-18.0) g/dl Hct 39.9 L (42.0-52.0) % MCV 103.4 H (80.0-100.0) fL MCHC 31.3 L (32.0-36.0) g/dL RDW Std Deviation 55.6 H (36.4-46.3) fL RDW Coeff of Grace 14.9 H (11.5-14.5) % Neut # (Auto) 20.15 H (1.40-6.50) K/uL Lymph # (Auto) 1.01 L (1.2-3.4) K/uL [place] # (Auto) 1.41 H (0.11-0.59) K/uL Chloride 110 H (98-107) mmol/L BUN 61 H (6-23) mg/dl Creatinine 5.58 H* (0.6-1.4) mg/dl Glucose 163 H (70-99(Fasting)) mg/dl AST 12 L (13-39) U/L Troponin I High Sens 22.3 H (0-20) pg/ml Procalcitonin 1.21 H (0-0.5) ng/ml Urine Appearance (Clear) Urine Protein (Negative) Urine Glucose (UA) (Negative) Urine Blood (Negative) Urine Nitrite (Negative) Ur Leukocyte Esterase (Negative) Urine WBC (Auto) (0-5) /hpf Urine Bacteria (Auto) (Negative) 09/28/22 09/28/22 09/29/22 Range/Units 17:30 20:32 05:53 WBC 18.27 H (4.8-10.8) K/ul RBC 3.71 L (4.70-6.10) M/uL Hgb 11.8 L (14.0-18.0) g/dl Hct 38.9 L (42.0-52.0) % MCV 104.9 H (80.0-100.0) fL MCHC 30.3 L (32.0-36.0) g/dL RDW Std Deviation 57.7 H (36.4-46.3) fL RDW Coeff of Grace 14.9 H (11.5-14.5) % Neut # (Auto) 15.11 H (1.40-6.50) K/uL Lymph # (Auto) 1.14 L (1.2-3.4) K/uL [place] # (Auto) 1.70 H (0.11-0.59) K/uL Chloride (98-107) mmol/L BUN (6-23) mg/dl Creatinine (0.6-1.4) mg/dl Glucose (70-99(Fasting)) mg/dl AST (13-39) U/L Troponin I High Sens 25.2 H (0-20) pg/ml Procalcitonin (0-0.5) ng/ml Urine Appearance Cloudy A (Clear) Urine Protein 2+ H (Negative) Urine Glucose (UA) Trace H (Negative) Urine Blood 2+ H (Negative) Urine Nitrite Positive A (Negative) Ur Leukocyte Esterase 2+ H (Negative) Urine WBC (Auto) >30 H (0-5) /hpf Urine Bacteria (Auto) 2+ H (Negative) 09/29/22 Range/Units 05:53 WBC (4.8-10.8) K/ul RBC (4.70-6.10) M/uL Hgb (14.0-18.0) g/dl Hct (42.0-52.0) % MCV (80.0-100.0) fL MCHC (32.0-36.0) g/dL RDW Std Deviation (36.4-46.3) fL RDW Coeff of Grace (11.5-14.5) % Neut # (Auto) (1.40-6.50) K/uL Lymph # (Auto) (1.2-3.4) K/uL [place] # (Auto) (0.11-0.59) K/uL Chloride 109 H (98-107) mmol/L BUN 58 H (6-23) mg/dl Creatinine 5.36 H* (0.6-1.4) mg/dl Glucose 128 H (70-99(Fasting)) mg/dl AST (13-39) U/L Troponin I High Sens 21.0 H (0-20) pg/ml Procalcitonin (0-0.5) ng/ml Urine Appearance (Clear) Urine Protein (Negative) Urine Glucose (UA) (Negative) Urine Blood (Negative) Urine Nitrite (Negative) Ur Leukocyte Esterase (Negative) Urine WBC (Auto) (0-5) /hpf Urine Bacteria (Auto) (Negative)
[2022-09-30] MEDS: MEROPENEM 500 MG in SYRINGE 0 ML IV SCH ×2 (05:51→17:11)
[2022-09-30 06:37] LABS: Hematocrit (blood only) 39.7 % (42.0-52.0); Hemoglobin 12.1 g/dl (14.0-18.0); Mean Corpuscular Hemoglobin 32.1 pg (25.0-34.0); Mean Corpuscular Hgb Conc 30.5 g/dL (32.0-36.0); Mean Corpuscular Volume 105.3 fL (80.0-100.0); Mean Platelet Volume 11.8 fL (9.4-12.4); Platelet Count 166 K/uL (130-400); RDW Coefficient of Variation 14.6 % (11.5-14.5); RDW Standard Deviation 56.3 fL (36.4-46.3); Red Blood Count 3.77 M/uL (4.70-6.10); White Blood Count 15.11 K/ul (4.8-10.8)
[2022-09-30 07:37] LABS: BUN Creatinine Ratio 11.3 (10-20); Creatinine Clr Calc Pharmacy 13.6 ml/min; Est GFR (African American) 11.8 ml/min; Est GFR (Non-African American) 10.2 ml/min; Phosphorus 4.9 mg/dl (2.5-4.9); Potassium 4.8 mmol/L (3.5-5.1)
[2022-09-30] MEDS: ATORVASTATIN 40 MG TAB PO SCH (09:18)
[2022-09-30] MEDS: FINASTERIDE 5 MG TAB PO SCH (09:18)
[2022-09-30] MEDS: CALCITRIOL 0.25 MCG CAPSULE PO SCH (09:19)
[2022-09-30] MEDS: ASPIRIN 81 MG ECTAB PO SCH (09:19)
[2022-09-30] MEDS: amLODIPine BESYLATE 5 MG TAB PO SCH (09:19)
[2022-09-30] MEDS: CLOPIDOGREL BISULFATE 75 MG TAB PO SCH (09:19)
--- NOTE | 2022-09-30 10:31 | Surgery Progress Note ---
Date of Service September 30, 2022 Assessment & Plan (1) Cecal diverticulitis: (2) Complicated UTI (urinary tract infection): (3) CKD (chronic kidney disease) stage 5, GFR less than 15 ml/min: Plan 76 year-old male with history of recurrent UTIs and recent complicated UTI presented to ED with 1 week history of right sided abdominal/groin pain with increasing severity yesterday. CT scan showing evidence of some stranding around left kidney but also stranding around right colon suggestive of Cecal diverticulitis. WBC 22k on presentation. No signs of perforation. 09/30/2022: afebrile, vss leukocytosis improving 15K today (18k and 22k previously) moderate abdominal pain still present, exam stable blood cultures NTD Plan: Continue conservative management with IV abx, will likely require 3-4 days given abdominal examination Would keep on full liquids for today Continue medical management will need outpatient colonoscopy in 6-8 weeks Admission and Anticipated Discharge Date Admission Date: September 28, 2022 Subjective feeling slightly better today but abdominal pain about the same no nausea or vomiting no fevers or chills Physical Exam Constitutional: WD/WN, vitals as above + obese and cooperative; no acute distress and not ill appearing Gastrointestinal (Abdomen): Inspection/Auscultation: abdomen normal to inspection and + visible herniation (umbilical hernia); abdomen not distended Percussion/Palpation: + abdomen tender (Right mid and lower abdomen on mild palpation), + guarding (RLQ) and abdomen soft; abdomen not rigid and abdomen not firm Skin: no rashes, warm and dry Results & Data Vital Signs (Past 12 Hours) Vital Signs Temp Pulse Pulse Resp BP Pulse Ox O2 Del Method 09/30/22 07:43 37.0 C 89 20 128/73 90 Room Air 09/30/22 03:45 37.2 C 96 H 18 126/72 88 L Room Air 09/30/22 00:00 84 09/29/22 23:18 36.4 C L 89 18 143/78 H 90 Room Air Laboratory Results 09/30/22 09/30/22 Range/Units 05:43 05:43 WBC 15.11 H (4.8-10.8) K/ul RBC 3.77 L (4.70-6.10) M/uL Hgb 12.1 L (14.0-18.0) g/dl Hct 39.7 L (42.0-52.0) % MCV 105.3 H (80.0-100.0) fL MCH 32.1 (25.0-34.0) pg MCHC 30.5 L (32.0-36.0) g/dL RDW Std Deviation 56.3 H (36.4-46.3) fL RDW Coeff of Grace 14.6 H (11.5-14.5) % Plt Count 166 (130-400) K/uL MPV 11.8 (9.4-12.4) fL Sodium 140 (136-145) mmol/L Potassium 4.8 (3.5-5.1) mmol/L Chloride 110 H (98-107) mmol/L Carbon Dioxide 23 (21-32) mmol/L Anion Gap 7 (3-11) BUN 57 H (6-23) mg/dl Creatinine 5.06 H* D (0.6-1.4) mg/dl Est Cr Clr Drug Dosing 13.6 ml/min Est GFR ( Amer) 11.8 ml/min Est GFR (Non-Af Amer) 10.2 ml/min BUN/Creatinine Ratio 11.3 (10-20) Glucose 142 H (70-99(Fasting)) mg/dl Calcium 10.0 (8.6-10.3) mg/dl Phosphorus 4.9 (2.5-4.9) mg/dl Magnesium 2.0 (1.7-2.4) mg/dl
--- NOTE | 2022-09-30 11:19 | Hospitalist Progress Note ---
Date of Service September 30, 2022 Assessment & Plan (1) UTI (urinary tract infection): (2) CKD (chronic kidney disease) stage 5, GFR less than 15 ml/min: (3) Hypertension: (4) Diverticulitis of ascending colon: Plan Complicated UTI Possible Pyelonephritis based on CT Cecal diverticulitis Recent pseudomonas UTI and treated with fosfomycin. UA suggestive of UTI, prior urine culture with Pseudomonas resistant to cefepime. He did meet SIRS with leukocytosis of 22k on presentation and HR of 96. Hence Sepsis is possible. Normal lactate 1.2 CT A/P 1. Interval developing of fat stranding about the left kidney without evidence of obstruction or hydronephrosis. Findings are nonspecific, clinical correlation is recommended to exclude infectious process. 2. Otherwise no acute abnormalities, the appendix is normal. 3. Numerous renal cysts are seen. 4. Prostatomegaly and bladder wall thickening compatible with chronic outlet obstruction noted. Irregularity at the proximal cecum may represent cecal diverticulitis. A contained perforation cannot be excluded. No pneumoperitoneum or drainable fluid collection is seen Leukocytosis improving Currently on IV meropenem Urine culture grew multiple orgs. Repeat Urine culture clean catch Blood culture negative so far CT noted findings of cecal diverticulitis. General surgery on board. Continue conservative management for now Full liquid diet for today CKD5 Baseline around 5 Currently stable at 5.06 Avoid nephrotoxics. Follows with nephro Hypertension Continue amlodipine with hold parameters History of CAD status post stent Denies any CP whatsoever. Trop borderline/minimally elevated, likely in setting of his CKD. Continue ASA, plavix, statin. Reviewed EKG. Has RBBB. Looks similar to EKG from 07/30/22 on [facility] Continue tele monitoring DVT prophylaxis-SCD/Ambulate. Patient requested hep sq stopped due to ecchymoses. Disposition-admit to inpatient, [facility] Full code Patient asking about discharge to go to vote I counseled patient that he is not yet medically stable for discharge I spent a total of 45 minutes coordinating, documenting and providing care for this patient excluding time spent in performance of separately billed services Admission and Anticipated Discharge Date Admission Date: September 28, 2022 Subjective Patient seen and examined Still has Right abd pain Denied nausea, vomiting, diarrhea, constipation, hematochezia, melena Denied dysuria, freq, urgency, hematuria Denied fever, chills Denied chest pain, cough, SOB Physical Exam Constitutional: + well hydrated; no acute distress Eyes: PERRL, conjunctivae normal, anicteric sclerae ENMT: external ear and nose normal, oropharynx normal Respiratory: normal respiratory effort, lungs clear to auscultation Cardiovascular: Rate/Rhythm: regular rate and regular rhythm S1 S2 Gastrointestinal (Abdomen): Inspection/Auscultation: normal bowel sounds; abdomen not distended Percussion/Palpation: + abdomen tender (RLQ); abdomen not rigid +umbilical hernia Musculoskeletal: no cyanosis or clubbing, extremities motor strength 5/5 Neurologic: PERRL, EOMI, accommodation nl, no face palsy, no dysarthria Psychiatric: A+Ox3, euthymic affect Results & Data Results & Data Vital Signs (Past 12 Hours) Vital Signs Temp Pulse Pulse Resp BP Pulse Ox O2 Del Method 09/30/22 10:49 Room Air 09/30/22 07:43 37.0 C 89 20 128/73 90 Room Air 09/30/22 03:45 37.2 C 96 H 18 126/72 88 L Room Air 09/30/22 00:00 84 09/29/22 23:18 36.4 C L 89 18 143/78 H 90 Room Air Laboratory Results Abnormal lab results 09/30/22 09/30/22 Range/Units 05:43 05:43 WBC 15.11 H (4.8-10.8) K/ul RBC 3.77 L (4.70-6.10) M/uL Hgb 12.1 L (14.0-18.0) g/dl Hct 39.7 L (42.0-52.0) % MCV 105.3 H (80.0-100.0) fL MCHC 30.5 L (32.0-36.0) g/dL RDW Std Deviation 56.3 H (36.4-46.3) fL RDW Coeff of Grace 14.6 H (11.5-14.5) % Chloride 110 H (98-107) mmol/L BUN 57 H (6-23) mg/dl Creatinine 5.06 H* D (0.6-1.4) mg/dl Glucose 142 H (70-99(Fasting)) mg/dl
[2022-10-01] MEDS: MEROPENEM 500 MG in SYRINGE 0 ML IV SCH ×2 (06:05→17:24)
[2022-10-01] MEDS: CLOPIDOGREL BISULFATE 75 MG TAB PO SCH (08:00)
[2022-10-01] MEDS: ATORVASTATIN 40 MG TAB PO SCH (08:00)
[2022-10-01] MEDS: FINASTERIDE 5 MG TAB PO SCH (08:00)
[2022-10-01] MEDS: amLODIPine BESYLATE 5 MG TAB PO SCH (08:01)
[2022-10-01] MEDS: ASPIRIN 81 MG ECTAB PO SCH (08:01)
[2022-10-01] MEDS: CALCITRIOL 0.25 MCG CAPSULE PO SCH (08:01)
[2022-10-01 08:55] LABS: Hematocrit (blood only) 40.2 % (42.0-52.0); Hemoglobin 12.3 g/dl (14.0-18.0); Mean Corpuscular Hemoglobin 32.1 pg (25.0-34.0); Mean Corpuscular Hgb Conc 30.6 g/dL (32.0-36.0); Mean Platelet Volume 11.2 fL (9.4-12.4); Platelet Count 174 K/uL (130-400); RDW Coefficient of Variation 14.5 % (11.5-14.5); RDW Standard Deviation 55.7 fL (36.4-46.3); Red Blood Count 3.83 M/uL (4.70-6.10); White Blood Count 11.64 K/ul (4.8-10.8)
[2022-10-01 09:12] LABS: BUN Creatinine Ratio 11.9 (10-20); Calcium 10.1 mg/dl (8.6-10.3); Creatinine Clr Calc Pharmacy 14.5 ml/min; Est GFR (African American) 12.8 ml/min; Est GFR (Non-African American) 11.1 ml/min; Potassium 4.9 mmol/L (3.5-5.1)
--- NOTE | 2022-10-01 11:27 | Surgery Progress Note ---
Date of Service October 01, 2022 Assessment & Plan (1) Cecal diverticulitis: (2) Complicated UTI (urinary tract infection): (3) CKD (chronic kidney disease) stage 5, GFR less than 15 ml/min: Plan 76 year-old male with history of recurrent UTIs and recent complicated UTI presented to ED with 1 week history of right sided abdominal/groin pain with increasing severity yesterday. CT scan showing evidence of some stranding around left kidney but also stranding around right colon suggestive of Cecal diverticulitis. WBC 22k on presentation. No signs of perforation. 09/30/2022: afebrile, vss leukocytosis improving 15K today (18k and 22k previously) moderate abdominal pain still present, exam stable blood cultures NTD 10/01/2022 afebrile, vss leukocytosis improved to 11.6K today (15K previously) - pain improving slowly Plan: Continue conservative management with IV abx, will likely require 3-4 days given abdominal examination can trail low fiber/soft diet today Continue medical management will need outpatient colonoscopy in 6-8 weeks History of requiring IV abx for urinary infection with pseudomonas in June, repeat urine culture still pending, if not significant improving in abdominal examination may require prolonged IV abx from colon standpoint and if requires from urinary standpoint pending culture results could consider outpatient IV abx therapy . Discussed with Dr. Iyer, await repeat urine culture results. Discussed with DR. llanes who agrees with above. Admission and Anticipated Discharge Date Admission Date: September 28, 2022 Subjective feeling good today abdominal pain slightly improved , minimal at rest 5-6/10 with movement (6-7/10 yesterday) tolerating full liquids no fevers or chills Physical Exam Constitutional: WD/WN, vitals as above + obese, cooperative and comfortable; no acute distress and not ill appearing Gastrointestinal (Abdomen): Inspection/Auscultation: abdomen normal to inspection and + visible herniation (umbilical hernia); abdomen not distended Percussion/Palpation: + abdomen tender (R might and lower abdomen), + guarding (voluntary of R mid and lower abdomen) and abdomen soft; abdomen not rigid and abdomen not firm Skin: no rashes, warm and dry Psychiatric: Orientation: alert and oriented x 3 Results & Data Vital Signs (Past 12 Hours) Vital Signs Temp Pulse Pulse Resp BP Pulse Ox O2 Del Method 10/01/22 09:50 89 10/01/22 07:48 37.0 C 75 18 144/73 H 90 Room Air 10/01/22 07:15 Room Air 10/01/22 03:34 36.8 C 87 20 129/68 94 Nasal Cannula 10/01/22 00:47 93 Nasal Cannula O2 Flow Rate 10/01/22 09:50 10/01/22 07:48 10/01/22 07:15 10/01/22 03:34 2 10/01/22 00:47 2 Laboratory Results 10/01/22 10/01/22 Range/Units 08:19 08:19 WBC 11.64 H (4.8-10.8) K/ul RBC 3.83 L (4.70-6.10) M/uL Hgb 12.3 L (14.0-18.0) g/dl Hct 40.2 L (42.0-52.0) % MCV 105.0 H (80.0-100.0) fL MCH 32.1 (25.0-34.0) pg MCHC 30.6 L (32.0-36.0) g/dL RDW Std Deviation 55.7 H (36.4-46.3) fL RDW Coeff of Grace 14.5 (11.5-14.5) % Plt Count 174 (130-400) K/uL MPV 11.2 (9.4-12.4) fL Sodium 138 (136-145) mmol/L Potassium 4.9 (3.5-5.1) mmol/L Chloride 109 H (98-107) mmol/L Carbon Dioxide 22 (21-32) mmol/L Anion Gap 7 (3-11) BUN 56 H (6-23) mg/dl Creatinine 4.72 H* D (0.6-1.4) mg/dl Est Cr Clr Drug Dosing 14.5 ml/min Est GFR ( Amer) 12.8 ml/min Est GFR (Non-Af Amer) 11.1 ml/min BUN/Creatinine Ratio 11.9 (10-20) Glucose 143 H (70-99(Fasting)) mg/dl Calcium 10.1 (8.6-10.3) mg/dl
--- NOTE | 2022-10-01 18:56 | Hospitalist Progress Note ---
Date of Service October 01, 2022 Assessment & Plan (1) UTI (urinary tract infection): (2) CKD (chronic kidney disease) stage 5, GFR less than 15 ml/min: (3) Hypertension: (4) Diverticulitis of ascending colon: Plan Cecal diverticulitis Complicated UTI--Ruled out Recent pseudomonas UTI and treated with fosfomycin. Prior Urine culture with Pseudomonas resistant to cefepime. --CT A/P: Interval developing of fat stranding about the left kidney without evidence of obstruction or hydronephrosis. Findings are nonspecific, clinical correlation is recommended to exclude infectious process. Otherwise no acute abnormalities, the appendix is normal. Numerous renal cysts are seen. Prostatomegaly and bladder wall thickening compatible with chronic outlet obstruction noted. Irregularity at the proximal cecum may represent cecal diverticulitis. A contained perforation cannot be excluded. No pneumoperitoneum or drainable fluid collection is seen -- Blood culture negative to date Urine culture negative Currently on IV meropenem Appreciate surgery input Advance to low fiber diet today Will need outpatient colonoscopy in 6 to 8 weeks CKD5 Baseline around 5 Avoid nephrotoxics. Follows with Nephro Hypertension Continue amlodipine H/O CAD S/P stent Trop borderline/minimally elevated, likely in setting of his CKD. Continue ASA, Plavix, statin. Reviewed EKG. Has RBBB. Continue current management DVT Px: SCD/Ambulate. Patient requested hep sq stopped due to ecchymoses. Code Status Full code Admission and Anticipated Discharge Date Admission Date: September 28, 2022 Subjective Patient is seen and examined at bedside Right lower quadrant abdominal pain better when compared to yesterday Tolerating current diet Discussed with surgery today Denies any chest pain, dyspnea, dizziness, nausea, vomiting Plan to advance to low fiber diet today Review of Systems Review of Systems: All systems reviewed & are unremarkable except as noted in Subjective Physical Exam Physical Exam: Physical Exam: Vitals signs as noted above General Appearance:Obese, no apparent distress Head: normocephalic, Atraumatic Eyes: normal inspection, EOMI Neck: supple, Trachea midline Respiratory/Chest: Decreased breath sounds, CTA, No accessory muscle use Cardiovascular: S1, S2, No murmur Abdomen/GI:Soft, RLQ tender, Bowel sounds present Extremities/Musculoskeletal:normal inspection, no edema Neurologic/Psych:AAOX3, grossly no focal neurological deficits Skin: normal color, warm Results & Data Results & Data Vital Signs (Past 12 Hours) Vital Signs Temp Pulse Pulse Resp BP Pulse Ox O2 Del Method 10/01/22 18:38 91 Room Air 10/01/22 18:00 78 10/01/22 15:02 37.3 C 79 18 141/72 H 87 L Room Air 10/01/22 11:25 36.6 C 76 18 156/79 H 91 Room Air 10/01/22 09:50 89 10/01/22 07:48 37.0 C 75 18 144/73 H 90 Room Air 10/01/22 07:15 Room Air Laboratory Results Short CBC 10/01/22 Range/Units 08:19 WBC 11.64 H (4.8-10.8) K/ul Hgb 12.3 L (14.0-18.0) g/dl Hct 40.2 L (42.0-52.0) % Plt Count 174 (130-400) K/uL BMP 10/01/22 08:19 Sodium 138 Potassium 4.9 Chloride 109 H Carbon Dioxide 22 BUN 56 H Creatinine 4.72 H* D Glucose 143 H Calcium 10.1
[2022-10-02] MEDS: MEROPENEM 500 MG in SYRINGE 0 ML IV SCH (05:15)
[2022-10-02 07:23] LABS: Hematocrit (blood only) 39.2 % (42.0-52.0); Hemoglobin 12.2 g/dl (14.0-18.0); Mean Corpuscular Hemoglobin 32.4 pg (25.0-34.0); Mean Corpuscular Hgb Conc 31.1 g/dL (32.0-36.0); Platelet Count 175 K/uL (130-400); RDW Coefficient of Variation 14.2 % (11.5-14.5); RDW Standard Deviation 54.4 fL (36.4-46.3); Red Blood Count 3.77 M/uL (4.70-6.10)
[2022-10-02 07:40] LABS: BUN Creatinine Ratio 12.8 (10-20); Calcium 9.9 mg/dl (8.6-10.3); Creatinine Clr Calc Pharmacy 13.5 ml/min; Est GFR (African American) 11.8 ml/min; Est GFR (Non-African American) 10.2 ml/min; Potassium 4.9 mmol/L (3.5-5.1)
[2022-10-02] MEDS: ASPIRIN 81 MG ECTAB PO SCH (08:58)
[2022-10-02] MEDS: amLODIPine BESYLATE 5 MG TAB PO SCH (08:58)
[2022-10-02] MEDS: FINASTERIDE 5 MG TAB PO SCH (08:58)
[2022-10-02] MEDS: CLOPIDOGREL BISULFATE 75 MG TAB PO SCH (08:58)
[2022-10-02] MEDS: ATORVASTATIN 40 MG TAB PO SCH (08:58)
[2022-10-02] MEDS: CALCITRIOL 0.25 MCG CAPSULE PO SCH (08:59)
--- NOTE | 2022-10-02 12:57 | Surgery Progress Note ---
Date of Service October 02, 2022 Assessment & Plan (1) Cecal diverticulitis: Plan cecal diverticulitis. Doing well. Continue advance diet as tolerated Switch to oral antibiotics May be discharged to home on oral antibiotics follow-up in clinic Admission and Anticipated Discharge Date Admission Date: September 28, 2022 Subjective Doing very well today. Tolerating his diet. Minimal pain. White blood cell count 10. No fevers. Physical Exam Physical Exam: NAD, A&OO x3 AFVSS abdomen soft, mild TTP in RLQ no rebound or guarding Results & Data Vital Signs (Past 12 Hours) Vital Signs Temp Pulse Pulse Resp BP BP Pulse Ox 10/02/22 11:49 36.6 C 86 20 160/75 H 91 10/02/22 10:59 10/02/22 07:53 83 10/02/22 07:25 37.0 C 92 H 16 131/71 92 10/02/22 03:46 37.1 C 90 18 169/87 H 92 O2 Del Method 10/02/22 11:49 Room Air 10/02/22 10:59 Room Air 10/02/22 07:53 10/02/22 07:25 Room Air 10/02/22 03:46 Room Air Laboratory Results 10/02/22 10/02/22 Range/Units 06:47 06:47 WBC 10.20 (4.8-10.8) K/ul RBC 3.77 L (4.70-6.10) M/uL Hgb 12.2 L (14.0-18.0) g/dl Hct 39.2 L (42.0-52.0) % MCV 104.0 H (80.0-100.0) fL MCH 32.4 (25.0-34.0) pg MCHC 31.1 L (32.0-36.0) g/dL RDW Std Deviation 54.4 H (36.4-46.3) fL RDW Coeff of Grace 14.2 (11.5-14.5) % Plt Count 175 (130-400) K/uL MPV 11.0 (9.4-12.4) fL Sodium 141 (136-145) mmol/L Potassium 4.9 (3.5-5.1) mmol/L Chloride 111 H (98-107) mmol/L Carbon Dioxide 23 (21-32) mmol/L Anion Gap 7 (3-11) BUN 65 H (6-23) mg/dl Creatinine 5.07 H* D (0.6-1.4) mg/dl Est Cr Clr Drug Dosing 13.5 ml/min Est GFR ( Amer) 11.8 ml/min Est GFR (Non-Af Amer) 10.2 ml/min BUN/Creatinine Ratio 12.8 (10-20) Glucose 97 (70-99(Fasting)) mg/dl Calcium 9.9 (8.6-10.3) mg/dl
--- NOTE | 2022-10-02 13:59 | Hospitalist Progress Note ---
Date of Service October 02, 2022 Assessment & Plan (1) UTI (urinary tract infection): (2) CKD (chronic kidney disease) stage 5, GFR less than 15 ml/min: (3) Hypertension: (4) Diverticulitis of ascending colon: Plan Cecal diverticulitis Complicated UTI--Ruled out Recent pseudomonas UTI and treated with fosfomycin. Prior Urine culture with Pseudomonas resistant to cefepime. --CT A/P: Interval developing of fat stranding about the left kidney without evidence of obstruction or hydronephrosis. Findings are nonspecific, clinical correlation is recommended to exclude infectious process. Otherwise no acute abnormalities, the appendix is normal. Numerous renal cysts are seen. Prostatomegaly and bladder wall thickening compatible with chronic outlet obstruction noted. Irregularity at the proximal cecum may represent cecal diverticulitis. A contained perforation cannot be excluded. No pneumoperitoneum or drainable fluid collection is seen -- Blood culture negative to date Urine culture negative Currently on IV meropenem>> plan to transition to p.o. antibiotics to complete the course Appreciate surgery input Advance to low fiber diet today Will need outpatient colonoscopy in 6 to 8 weeks Needs follow-up with surgery upon discharge CKD5 Baseline around 5 Avoid nephrotoxics. Follows with Nephro Hypertension Continue amlodipine H/O CAD S/P stent Trop borderline/minimally elevated, likely in setting of his CKD. Continue ASA, Plavix, statin. Reviewed EKG. Has RBBB. Continue current management DVT Px: SCD/Ambulate. Patient requested hep sq stopped due to ecchymoses. Code Status Full code Admission and Anticipated Discharge Date Admission Date: September 28, 2022 Subjective Patient is seen and examined at bedside States having only minimal lower abdominal discomfort Tolerated low fiber diet No new complaints Prefers to be discharged home today Denies any chest pain, dyspnea, dizziness, nausea, vomiting No other complaints Review of Systems Review of Systems: All systems reviewed & are unremarkable except as noted in Subjective Physical Exam Physical Exam: Physical Exam: Vitals signs as noted above General Appearance:Obese, no apparent distress Head: normocephalic, Atraumatic Eyes: normal inspection, EOMI Neck: supple, Trachea midline Respiratory/Chest: Decreased breath sounds, CTA, No accessory muscle use Cardiovascular: S1, S2, No murmur Abdomen/GI:Soft, RLQ tender, Bowel sounds present Extremities/Musculoskeletal:normal inspection, no edema Neurologic/Psych:AAOX3, grossly no focal neurological deficits Skin: normal color, warm Results & Data Results & Data Vital Signs (Past 12 Hours) Vital Signs Temp Pulse Pulse Resp BP BP Pulse Ox 10/02/22 11:49 36.6 C 86 20 160/75 H 91 10/02/22 10:59 10/02/22 07:53 83 10/02/22 07:25 37.0 C 92 H 16 131/71 92 10/02/22 03:46 37.1 C 90 18 169/87 H 92 O2 Del Method 10/02/22 11:49 Room Air 10/02/22 10:59 Room Air 10/02/22 07:53 10/02/22 07:25 Room Air 10/02/22 03:46 Room Air Laboratory Results Short CBC 10/02/22 Range/Units 06:47 WBC 10.20 (4.8-10.8) K/ul Hgb 12.2 L (14.0-18.0) g/dl Hct 39.2 L (42.0-52.0) % Plt Count 175 (130-400) K/uL BMP 10/02/22 06:47 Sodium 141 Potassium 4.9 Chloride 111 H Carbon Dioxide 23 BUN 65 H Creatinine 5.07 H* D Glucose 97 Calcium 9.9
[2022-10-02] MEDS ORDERED: metroNIDAZOLE 500 MG TAB PO SCH (14:00)
--- NOTE | 2022-10-02 14:05 | Discharge Summary ---
Date of Service October 02, 2022 Admission HPI Per Admitting Provider 76-year-old male with history of CAD status post stenting, status post bioprosthetic AVR, hypertension, hyperlipidemia, CKD stage V (on transplant list but declined multiple times already), BPH status post surgery, bladder cancer, who presented to ED with right lower quadrant pain for 1 day. He states that the pain was building up for about a week and was acutely worsened yesterday. States he had cystoscopic evaluation 3 weeks ago, found to have abnormal urine during evaluation and urine culture was positive for Pseudomonas for which he was treated with antibiotics. States he normally does not get any symptoms with UTI and this is the first time he is having symptoms. Pain mostly in right lower quadrant and groin. Also had some right flank pain. States pain is controlled as long as he does not move. He denies any fever, chills, nausea, vomiting, dysuria, diarrhea. He still makes urine but denies any change in color or odor of urine. He states he takes all his medications around 2 AM. Denies smoking or drinking alcohol Admission Exam Per Admitting Provider General: Lying in bed, in mild distress due to pain, on room air HEENT: EOMI, HERNAN, MMM Chest: Clear breath sounds bilaterally, no wheezes or crackles CVS: Regular rate and rhythm, normal heart sounds, no murmur Abdomen: Soft, tender to palpation of right lower quadrant, distended, umbilical hernia, bowel sounds present Neuro: Awake, alert, oriented, conversing well, non focal Extremities: No cyanosis, clubbing or edema Principal Diagnosis Cecal diverticulitis Discharge Data Allergies Allergy/AdvReac Type Severity Reaction Status Date / Time cephalexin Allergy Severe Tongue and Verified 09/28/22 16:56 face swelling tamsulosin Allergy Severe angioedema Verified 09/28/22 16:56 Consultations 09/28/22 16:59 ED Decision to Admit Stat 09/29/22 05:29 Consult General Surgery Routine Procedures Performed Laboratory Results WBC 10.20 K/ul (4.8-10.8) 10/02/22 06:47 RBC 3.77 M/uL (4.70-6.10) L 10/02/22 06:47 Hgb 12.2 g/dl (14.0-18.0) L 10/02/22 06:47 Hct 39.2 % (42.0-52.0) L 10/02/22 06:47 MCV 104.0 fL (80.0-100.0) H 10/02/22 06:47 MCH 32.4 pg (25.0-34.0) 10/02/22 06:47 MCHC 31.1 g/dL (32.0-36.0) L 10/02/22 06:47 RDW Std Deviation 54.4 fL (36.4-46.3) H 10/02/22 06:47 RDW Coeff of Grace 14.2 % (11.5-14.5) 10/02/22 06:47 Plt Count 175 K/uL (130-400) 10/02/22 06:47 MPV 11.0 fL (9.4-12.4) 10/02/22 06:47 Immature Gran % (Auto) 0.5 % 09/29/22 05:53 Neut % (Auto) 82.8 % 09/29/22 05:53 Lymph % (Auto) 6.2 % 09/29/22 05:53 [place] % (Auto) 9.3 % 09/29/22 05:53 Eos % (Auto) 0.9 % 09/29/22 05:53 Baso % (Auto) 0.3 % 09/29/22 05:53 Neut # (Auto) 15.11 K/uL (1.40-6.50) H 09/29/22 05:53 Lymph # (Auto) 1.14 K/uL (1.2-3.4) L 09/29/22 05:53 [place] # (Auto) 1.70 K/uL (0.11-0.59) H 09/29/22 05:53 Eos # (Auto) 0.17 K/uL (0-0.50) 09/29/22 05:53 Baso # (Auto) 0.06 K/uL (0-0.2) 09/29/22 05:53 Immature Gran # (Auto) 0.09 K/uL (0.01-0.20) 09/29/22 05:53 Polychromasia 1+ 09/28/22 15:29 PT 11.5 Seconds (9.0-12.0) 09/28/22 15:29 INR 1.1 (0.9-1.1) 09/28/22 15:29 Sodium 141 mmol/L (136-145) 10/02/22 06:47 Potassium 4.9 mmol/L (3.5-5.1) 10/02/22 06:47 Chloride 111 mmol/L (98-107) H 10/02/22 06:47 Carbon Dioxide 23 mmol/L (21-32) 10/02/22 06:47 Anion Gap 7 (3-11) 10/02/22 06:47 BUN 65 mg/dl (6-23) H 10/02/22 06:47 Creatinine 5.07 mg/dl (0.6-1.4) H* D 10/02/22 06:47 Est Cr Clr Drug Dosing 13.5 ml/min 10/02/22 06:47 Est GFR ( Amer) 11.8 ml/min 10/02/22 06:47 Est GFR (Non-Af Amer) 10.2 ml/min 10/02/22 06:47 BUN/Creatinine Ratio 12.8 (10-20) 10/02/22 06:47 Glucose 97 mg/dl (70-99(Fasting)) 10/02/22 06:47 Lactate 1.2 mmol/L (0.4-2.0) 09/28/22 15:29 Calcium 9.9 mg/dl (8.6-10.3) 10/02/22 06:47 Phosphorus 4.9 mg/dl (2.5-4.9) 09/30/22 05:43 Magnesium 2.0 mg/dl (1.7-2.4) 09/30/22 05:43 Total Bilirubin 0.6 mg/dl (0.2-1.0) 09/28/22 15:29 AST 12 U/L (13-39) L 09/28/22 15:29 ALT 14 U/L (7-52) 09/28/22 15:29 Alkaline Phosphatase 52 U/L (34-104) 09/28/22 15:29 Troponin I High Sens 21.0 pg/ml (0-20) H 09/29/22 05:53 Total Protein 6.6 gm/dl (6.0-8.3) 09/28/22 15:29 Albumin 3.7 gm/dl (3.4-5.0) 09/28/22 15:29 Globulin 2.9 gm/dl (2.5-4.0) 09/28/22 15: Albumin/Globulin Ratio 1.3 (0.9-2) 09/28/22 15: Lipase 38 U/L (11-82) 09/28/22 15: Procalcitonin 1.21 ng/ml (0-0.5) H 09/28/22 15:29 Urine Color Yellow 09/28/22 17:30 Urine Appearance Cloudy (Clear) A 09/28/22 17: Urine pH 7.0 (4.5-7.5) 09/28/22 17:30 Ur Specific [place] 1.014 (1.000-1.030) 09/28/22 17: Urine Protein 2+ (Negative) H 09/28/22 17: Urine Glucose (UA) Trace (Negative) H 09/28/22 17: Urine Ketones Negative (Negative) 09/28/22 17: Urine Blood 2+ (Negative) H 09/28/22 17: Urine Nitrite Positive (Negative) A 09/28/22 17: Urine Bilirubin Negative (Negative) 09/28/22 17: Urine Urobilinogen Negative (Negative) 09/28/22 17:30 Ur Leukocyte Esterase 2+ (Negative) H 09/28/22 17:30 Urine WBC (Auto) >30 /hpf (0-5) H 09/28/22 17:30 Urine RBC (Auto) 0-4 /hpf (0-4) 09/28/22 17:30 U Hyaline Cast (Auto) 1-5 /lpf (0-5) 09/28/22 17:30 U Epithel Cells (Auto) 0-5 /lpf (0-5) 09/28/22 17:30 Urine Bacteria (Auto) 2+ (Negative) H 09/28/22 17:30 SARS-CoV-2, RNA, NAAT NEGATIVE (NEGATIVE) 09/28/22 16:58 Impressions Abdomen/Pelvis CT 09/28/22 15:20 CT abd pelvis wo con CLINICAL HISTORY: RLQ pain, recent uti TECHNIQUE: Helical axial images of the abdomen and pelvis were obtained. Automated dose lowering techniques and/or adjustment according to patient size were utilized for this exam. This exam was performed without intravenous contrast. CT DOSE: 1060.02 mGy.cm COMPARISON: Comparison is made to CT abdomen pelvis 08/02/2011 FINDINGS: Lower chest: Atelectasis is seen in the right greater than left lower lung. Liver: Unremarkable. No focal lesions are seen. Gallbladder and biliary tree: The gallbladder is contracted. No intra- or extrahepatic biliary ductal dilation. Pancreas: Unremarkable, no focal lesions. Spleen: Unremarkable. Adrenals: Unremarkable. Kidneys and ureters: Innumerable renal cysts are seen. Fat stranding is seen about the left Bladder: Diffuse homogeneous wall thickening is seen. Reproductive organs: Prostatomegaly is seen. Bowel: Diverticulosis is seen without evidence of diverticulitis. The appendix is unremarkable. Lymph nodes Retroperitoneal: Unremarkable. Pelvic: Unremarkable. Mesenteric: Unremarkable. Peritoneum: Normal. Vessels: Atherosclerotic calcifications are seen. Abdominal wall: A fat-containing umbilical hernia is seen. Bilateral left greater than right fat-containing inguinal hernias noted. Bones: Degenerative changes in the visualized spine. IMPRESSION: 1. Interval developing of fat stranding about the left kidney without evidence of obstruction or hydronephrosis. Findings are nonspecific, clinical correlation is recommended to exclude infectious process. 2. Otherwise no acute abnormalities, the appendix is normal. 3. Numerous renal cysts are seen. 4. Prostatomegaly and bladder wall thickening compatible with chronic outlet obstruction noted. 5. Additional findings as above. ACT 112: Negative or not required by law. Electronically signed by: Keith Khoury M.D. 09/28/2022 4:10 PM Ordered Studies 09/28/22 15:20 CT abd pelvis wo con Stat Hospital Course (1) UTI (urinary tract infection): (2) CKD (chronic kidney disease) stage 5, GFR less than 15 ml/min: (3) Hypertension: (4) Diverticulitis of ascending colon: Plan Cecal diverticulitis Complicated UTI--Ruled out Recent pseudomonas UTI and treated with fosfomycin. Prior Urine culture with Pseudomonas resistant to cefepime. --CT A/P: Interval developing of fat stranding about the left kidney without evidence of obstruction or hydronephrosis. Findings are nonspecific, clinical correlation is recommended to exclude infectious process. Otherwise no acute abnormalities, the appendix is normal. Numerous renal cysts are seen. Prostatomegaly and bladder wall thickening compatible with chronic outlet obstruction noted. Irregularity at the proximal cecum may represent cecal diverticulitis. A contained perforation cannot be excluded. No pneumoperitoneum or drainable fluid collection is seen -- Blood culture negative to date Urine culture negative Currently on IV meropenem>> plan to transition to p.o. antibiotics to complete the course Appreciate surgery input Advance to low fiber diet today Will need outpatient colonoscopy in 6 to 8 weeks Needs follow-up with surgery upon discharge CKD5 Baseline around 5 Avoid nephrotoxics. Follows with Nephro Hypertension Continue amlodipine H/O CAD S/P stent Trop borderline/minimally elevated, likely in setting of his CKD. Continue ASA, Plavix, statin. Reviewed EKG. Has RBBB. Continue current management DVT Px: SCD/Ambulate. Patient requested hep sq stopped due to ecchymoses. Code Status Full code Total Time Total Time Spent Total Time Spent (In Minutes): 54 minutes Discharge Plan Discharge Items Patient Disposition: Home - Self-Care Reason For Visit: RLQ PAIN Discharge Diagnosis: Cecal diverticulitis Condition on Discharge: Fair Activity: Per Instructions section Exercise/Sports: Wait until after follow-up appointment Non-emergency contact: Primary Care Provider and Surgeon Call non-emergency contact if: you have any medication questions, your symptoms worsen, your pain is concerning for you and you have a fever Follow-up/Referrals: Mike Maki MD [Primary Care Provider] - Diet: Heart Healthy and Low Fiber Addtl Attending Provider Instructions: Follow-up with your primary care physician Dr. Maki in 1 week Follow-up with your surgeon Dr. Sung Daugherty in 2 to 3 weeks. --- Complete antibiotic course (ciprofloxacin and Flagyl) as prescribed. --Get outpatient colonoscopy in 6 to 8 weeks as recommended by your surgeon. Seek immediate medical attention if your symptoms reoccur or worsen Please take all medications as instructed on discharge list below. Please call if you have any questions or problems. You can reach a [facility] hospitalist on duty at [facility] 24 hours a day by calling [phone] Pending Studies at Discharge: No Stand-Alone Forms: [facility], Smoking Cessation Medications and DC Order Prescriptions: New metronidazole 500 mg Tablet 500 mg PO TID 6 Days Qty: 18 0RF ciprofloxacin HCl 500 mg Tablet 500 mg PO DAILY Qty: 6 0RF Continued amlodipine 5 mg Tablet 5 mg PO HS atorvastatin 80 mg tablet 80 mg PO HS clopidogrel 75 mg tablet 75 mg PO QAM finasteride 5 mg tablet 5 mg PO QAM calcitriol 0.5 mcg capsule 0.5 mcg PO QAM 1 mg Tablet 1 tab PO DAILY aspirin [Baby Aspirin] 81 mg Tablet,Chewable 81 mg PO DAILY Discharge Orders: Discharge Order (Routine); Ordered 10/02/22 Ordered By: Manuel Harper/Other Patient Handouts: Low-Fiber Diet Admission Data Admit Date/Time: 09/28/22 18:08 Attending Provider: Manuel Iyer Admit Provider: Bernardino Flynn Primary Care Provider: Mike Maki Other Providers: Bernardino Flynn ; Sung Daugherty
[2022-10-02] MEDS ORDERED: CIPROFLOXACIN 500 MG TAB PO SCH (14:30)
--- NOTE | 2022-10-03 14:16 | Coding Query ---
CODING QUERY To promote full compliance with coding requirements relating to patient care, provider participation is requested in all cases of group program manager uncertainty. Please assist us with the question(s) below: Coding Question(s): The 09/30 Addendum on the 09/29 Progress Note documents " Correction: He did meet SIRS with leukocytosis of 22k on presentation and HR of 96. Hence Sepsis is possible. Normal lactate 1.2", and the 09/30 Progress Note also documents, "He did meet SIRS with leukocytosis of 22k on presentation and HR of 96. Hence Sepsis is possible. Normal lactate 1.2". Cecal Diverticulitis is documented, and the 10/01 Progress Note through Discharge Summary ruled-out complicated UTI. Please specify below, in your clinical opinion, the most likely source of the possible Sepsis: ( x ) Cecal Diverticulitis ( ) Other: Please Specify ( ) Unknown Physician's Response(s): Thank you Jessica Holman Principal Diagnosis: "that condition established after study, to be chiefly responsible for occasioning the admission of the patient to the hospital for care." Co-Existing Principal Diagnosis: "when two or more diagnoses equally meet the criteria for principal diagnosis as determined by the circumstances of admission, diagnostic work up, and/or therapy provided, and the Alphabetic Index, Tabular List, or another coding guideline does not provide sequencing direction, any one of the diagnoses may be sequenced first." "When the physician has documented what appears to be a current diagnosis in the body of the record, but has not included the diagnosis in the final diagnostic statement, the physician should be asked whether the diagnosis should be added." (Source Coding Clinic 2 QTR90. p3-4) MIL
== END 2022-10-02 15:58 | disposition home or self-care (01) | DRG 872 ==
LOC: ED 14:53 → EDINP 18:08 → SUATTDRO 18:08 → 2W 09-29 04:29

== ENCOUNTER 2023-12-17 16:35 | Inpatient (IN) ==
--- NOTE | 2023-12-17 16:49 | Emergency Department Note ---
Impression & Plan Hypoxia ADMIT ED Provider Note HPI: History obtained from patient. The patient is a 77-year-old gentleman with history of stage V chronic kidney disease, not currently on dialysis although fistula has been placed, who presents the emergency department with chief complaint shortness of breath. Patient states he has had shortness of breath for the past 2 days. Patient was noted to be hypoxic in triage at 65% on room air and therefore was brought back emergently in room B1 for assessment. Patient's oxygen saturations did improve on nonrebreather mask. Patient states he has had weakness now for several weeks and he has been more short of breath over the past 2 days. Patient denies any recent fever, denies any chest pain. On arrival here to the ED the patient is otherwise hemodynamically stable. Patient is afebrile on arrival. ROS: - Per HPI Differential Diagnosis: Acute respiratory failure secondary to CHF exacerbation, pneumonia, viral upper respiratory infection with hypoxia, acute coronary syndrome, pulmonary edema, empyema, pleural effusion, pulmonary embolism, amongst other potential pathologies. *Outpatient medications and allergy history reviewed. PE: General: Alert, mild distress secondary to increased work of breathing HEENT: Normocephalic, trachea midline Eyes: Extraocular eye movement is intact, no scleral erythema Pulmonary: Mildly diminished air movement bilaterally with expiratory wheezing bilaterally and throughout Cardio: Regular rate and rhythm GI: Abdomen is soft to palpation : No suprapubic tenderness MSK: No evidence of trauma or malformation of the extremities, no edema Skin: No evidence of rash Neuro: Alert, no focal deficits Psychiatric: Cooperative INDEPENDENT INTERPRETATIONS: campus monitor: (As interpreted by myself): - An order was placed for continuous cardiac monitoring - Patient was noted to be in sinus rhythm with a rate of 85 EKG: (As interpreted by myself): Rate: 95 Rhythm: Sinus rhythm Intervals: QRS 142 ms, otherwise within normal limits ST changes: No ST elevation Time: 1649 Chest x-ray: (As interpreted by myself): Multifocal pneumonia Interventions provided in ED: -IV Levaquin, nonrebreather mask for supplemental oxygen, BiPAP Medical Decision Making: IV was established and lab work obtained, patient was placed on engine monitor. Patient was placed on supplemental oxygen with nonrebreather mask with good improvement in presenting hypoxia. Lab work shows a leukocytosis of 13.8, hemoglobin is stable at 9.6, platelet count is normal. INR slightly subtherapeutic at 1.9, patient is noted to be on Coumadin for history of AVR. Venous blood gas shows evidence of acidotic pH with some hypercarbia with pCO2 of 58. pH is 7.16, CMP does not show any critical findings aside from patient's baseline near end-stage renal disease with a creatinine of 7.10, potassium is mildly elevated at 5.4 for which the patient was given albuterol breathing treatment. Lactic acid is normal. High-sensitivity troponin is elevated at 88.4, patient denies any chest pain and EKG does not show any acute ischemic changes. Low suspicion for ACS. Procalcitonin is elevated at 0.7, viral panel testing was obtained and is negative. Patient's chest x-ray shows evidence of a multifocal pneumonia. I discussed all of this with the patient and his who later arrived at the bedside, patient has an anaphylactic reaction to Keflex and therefore was placed on Levaquin for his multifocal pneumonia. Will avoid IV fluids at this time given the patient's renal failure with some concern for fluid overload. Patient is otherwise hemodynamically stable and does not appear to be volume depleted. Given the patient's acidosis on VBG with hypercarbia, BiPAP was ordered. Patient's presentation was discussed with the [facility] hospitalist service, Dr. Flynn, and the patient was placed for admission in improved condition for further care. Consultants/Discussions held with other healthcare providers: -Hospitalist, Dr. Flynn Disposition discussion held by myself with: -Patient and his at bedside * CRITICAL CARE TIME: ( 43 ) minutes -Stabilization of patient with presenting hypoxia at 65% on room air requiring initially nonrebreather mask and eventually BiPAP for improvement of respiratory acidosis, time spent at the bedside, interpretation of diagnostic studies, discussion with other physicians and arrangement of admission for acute hypoxia with multifocal pneumonia. Diagnosis: 1. Hypoxia, acute 2. Multifocal pneumonia, acute 3. Leukocytosis, acute 4. Anemia, chronic 5. Acute on chronic kidney injury 6. Acute hypercapnic respiratory failure 7. Hyperkalemia, acute, mild 8. Elevated high-sensitivity troponin level Disposition: Admission Herve Miguel DO Emergency Medicine Past Med/Surg History Problem List (Updated 12/17/23 @ 22:25 by Herve Miguel DO) Hypoxia (Acute) Respiratory acidosis Metabolic encephalopathy Anticoagulated on Coumadin Multifocal pneumonia Acute respiratory failure with hypoxia and hypercapnia Diverticulitis of ascending colon UTI (urinary tract infection) Urinary tract infection due to Pseudomonas aeruginosa (Acute) CKD (chronic kidney disease) stage 5, GFR less than 15 ml/min (Acute) Colon polyps Encounter for pre-operative examination BPH (benign prostatic hyperplasia) Hypertension 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 " On 04/03/11 18:15 Norma Vargas wrote "with outflow obstruction " On 04/03/11 18:15 Norma Vargas wrote "with outflow obstruction " On 04/03/11 18:15 Norma Vargas wrote "with outflow obstruction " Absent renal function (04/03/11) Medical History Gastric nodule Type 2 diabetes mellitus NIDDM Bifascicular block ongoing since 2010 Umbilical hernia chronic per patient-denies change or worsening History of blood transfusion pre-op aortic valve replacement CAD (coronary artery disease) s/p 1 stent in 2019 HTN (hypertension) controlled, stable per pt History of diverticulitis entered into EMR 09/2022-patient states last flare was 1 year ago History of colon polyps BPH (benign prostatic hyperplasia) CKD (chronic kidney disease), stage V Arthritis Hx of bladder cancer surgery only Hyperlipidemia Surgical History History of cataract surgery left and right H/O cystoscopy History of tooth extraction Aortic valve replaced 2019 at [facility] (followed by Dr. Wei) History of heart artery stent 1 stent placed 2018 History of orchiectomy, unilateral History of arthroscopy of left knee History of colonoscopy Family History Mother Family history of diabetes mellitus Father Family hx of colon cancer Other No family history of adverse response to anesthesia Social History Smoking Status: Never smoker Tobacco Type: Cigarettes Second Hand Exposure: No; Do You Dip or Chew Tobacco: No; Tobacco Cessation Education Requested by Patient: No Hx Alcohol Use: No Hx Substance Use: No Preferred Language: Italian Communication Ability: Effective Phlebotomist Supervisor/Instructor Required: No Beliefs That Will Affect Care: None Current Living Situation: Spouse Other Information That Helps Us Care for You: No Feels Safe at Home: Yes Safety Concerns: Feels Safe At This Time Assistive Devices: Walker Allergies Allergies Allergy/AdvReac Type Severity Reaction Status Date / Time cephalexin Allergy Severe Tongue and Verified 11/24/23 07:00 face swelling tamsulosin Allergy Severe angioedema Verified 11/24/23 07:00 Home Meds Home Medications Medication Instructions Recorded Confirmed amlodipine 5 mg tablet 5 mg PO HS 07/26/18 12/17/23 atorvastatin 80 mg tablet 80 mg PO HS 07/01/22 12/17/23 finasteride 5 mg tablet 5 mg PO HS 07/01/22 12/17/23 aspirin 81 mg chewable tablet 81 mg PO HS 07/04/22 12/17/23 piyxersc-oto-[id number]-FA 1 mg 1 tab PO HS 07/04/22 12/17/23 tablet calcitriol 0.5 mcg capsule 0.5 mcg PO 3XWK 04/28/23 12/17/23 calcium acetate(phosphat bind) 667 667 mg PO TID 12/17/23 12/17/23 mg capsule ciprofloxacin HCl 500 mg tablet 500 mg PO DAILY 12/17/23 12/17/23 fluocinonide 0.05 % topical 0.05 applic topical DAILY 12/17/23 12/17/23 solution torsemide 20 mg tablet 20 mg PO DAILY 12/17/23 12/17/23 triamcinolone acetonide 0.1 % 0.1 applic topical BID 12/17/23 12/17/23 topical cream warfarin 5 mg tablet 5 mg PO DAILY 12/17/23 12/17/23 Results & Data (ED) Vital Signs Vital Signs - 24 hr 12/17/23 16:38 12/17/23 16:45 12/17/23 16:51 Temperature 36.6 C Temperature Source Temporal Artery Scan Pulse Rate 94 H 98 H Pulse Rate [Finger] Pulse Rate from SpO2 Sensor Respiratory Rate 22 Respiratory Effort / Characteristics Non-Labored Spontaneous Respiratory Depth Normal Respiratory Pattern Regular Blood Pressure 121/54 L 133/83 Blood Pressure Mean 76 112 Blood Pressure Position Sitting Pulse Oximetry 65 L Oxygen Delivery Method Room Air Oxygen Flow Rate Sepsis Recent Fever Within 48 Hours No Sepsis New/Unexplained Change in Mental Status No Sepsis Action Taken by Nursing No Action Required 12/17/23 17:00 12/17/23 17:04 12/17/23 17:09 Temperature Temperature Source Pulse Rate 91 H 94 H Pulse Rate [Finger] 93 H Pulse Rate from SpO2 Sensor 91 H 93 H Respiratory Rate 34 H 15 27 H Respiratory Effort / Characteristics Non-Labored Spontaneous Pursed Lip Respiratory Depth Respiratory Pattern Blood Pressure 135/73 Blood Pressure Mean 93 Blood Pressure Position Pulse Oximetry 93 93 92 Oxygen Delivery Method Nebulizer Non-rebreather Nebulizer Oxygen Flow Rate 15 Sepsis Recent Fever Within 48 Hours Sepsis New/Unexplained Change in Mental Status Sepsis Action Taken by Nursing 12/17/23 17:11 12/17/23 17:15 12/17/23 17:31 Temperature Temperature Source Pulse Rate 97 H Pulse Rate [Finger] Pulse Rate from SpO2 Sensor Respiratory Rate 27 H Respiratory Effort / Characteristics Spontaneous Labored Short of Breath Respiratory Depth Respiratory Pattern Blood Pressure 137/69 Blood Pressure Mean 97 Blood Pressure Position Pulse Oximetry 93 93 Oxygen Delivery Method Nebulizer Nebulizer Oxygen Flow Rate Sepsis Recent Fever Within 48 Hours Sepsis New/Unexplained Change in Mental Status Sepsis Action Taken by Nursing 12/17/23 17:42 12/17/23 17:45 12/17/23 18:00 Temperature Temperature Source Pulse Rate 96 H 95 H 96 H Pulse Rate [Finger] Pulse Rate from SpO2 Sensor 96 H 95 H 92 H Respiratory Rate 28 H 25 H 27 H Respiratory Effort / Characteristics Respiratory Depth Respiratory Pattern Blood Pressure 123/87 128/63 Blood Pressure Mean 99 84 Blood Pressure Position Pulse Oximetry 92 93 92 Oxygen Delivery Method Oxymask Oxymask Oxymask Oxygen Flow Rate 10 10 10 Sepsis Recent Fever Within 48 Hours Sepsis New/Unexplained Change in Mental Status Sepsis Action Taken by Nursing 12/17/23 18:15 12/17/23 18:27 12/17/23 18:33 Temperature Temperature Source Pulse Rate 94 H 94 H 94 H Pulse Rate [Finger] Pulse Rate from SpO2 Sensor 94 H 94 H 92 H Respiratory Rate 27 H 25 H 25 H Respiratory Effort / Characteristics Respiratory Depth Respiratory Pattern Blood Pressure 129/63 125/71 Blood Pressure Mean 85 89 Blood Pressure Position Pulse Oximetry 92 91 92 Oxygen Delivery Method Oxymask Oxymask Oxymask Oxygen Flow Rate 10 10 10 Sepsis Recent Fever Within 48 Hours Sepsis New/Unexplained Change in Mental Status Sepsis Action Taken by Nursing 12/17/23 18:45 Temperature Temperature Source Pulse Rate 92 H Pulse Rate [Finger] Pulse Rate from SpO2 Sensor 92 H Respiratory Rate 27 H Respiratory Effort / Characteristics Respiratory Depth Respiratory Pattern Blood Pressure 121/101 H Blood Pressure Mean 107 Blood Pressure Position Pulse Oximetry 93 Oxygen Delivery Method Oxymask Oxygen Flow Rate 10 Sepsis Recent Fever Within 48 Hours Sepsis New/Unexplained Change in Mental Status Sepsis Action Taken by Nursing Laboratory Data 12/17/23 16:51 12/17/23 16:51 Lab Results 12/17/23 12/17/23 Range/Units 16:51 17:55 WBC 13.80 H (4.8-10.8) K/ul RBC 3.18 L (4.70-6.10) M/uL Hgb 9.6 L (14.0-18.0) g/dl Hct 31.8 L (42.0-52.0) % MCV 100.0 (80.0-100.0) fL MCH 30.2 (25.0-34.0) pg MCHC 30.2 L (32.0-36.0) g/dL RDW Std Deviation 55.0 H (36.4-46.3) fL RDW Coeff of Grace 14.9 H (11.5-14.5) % Plt Count 258 (130-400) K/uL MPV 10.5 (9.4-12.4) fL Immature Gran % (Auto) 0.7 % Neut % (Auto) 77.5 % Lymph % (Auto) 7.3 % [place] % (Auto) 13.8 % Eos % (Auto) 0.1 % Baso % (Auto) 0.6 % Neut # (Auto) 10.70 H (1.40-6.50) K/uL Lymph # (Auto) 1.01 L (1.20-3.40) K/uL [place] # (Auto) 1.90 H (0.11-0.59) K/uL Eos # (Auto) 0.01 (0.00-0.50) K/uL Baso # (Auto) 0.08 (0.00-0.20) K/uL Immature Gran # (Auto) 0.10 (0.01-0.20) K/uL Absolute Nucleated RBC 0.03 (0.00-0.12) K/uL Nucleated RBC % (auto) 0.2 % PT 19.2 H (9.0-12.0) Seconds INR 1.9 H (0.9-1.1) VBG pH 7.16 L (7.36-7.41) VBG pCO2 58 H (38-50) mmHg VBG pO2 64 mmHg VBG HCO3 21 mmol/L VBG O2 Saturation 90.4 % VBG Base Excess -8.6 mEq/L Sodium 139 (136-145) mmol/L Potassium 5.4 H (3.5-5.1) mmol/L Chloride 109 H (98-107) mmol/L Carbon Dioxide 21 (21-32) mmol/L Anion Gap 9 (3-11) BUN 97 H (6-23) mg/dl Creatinine 7.10 H* (0.6-1.4) mg/dl Est Cr Clr Drug Dosing 9.7 ml/min Est GFR ( Amer) 7.8 ml/min Est GFR (Non-Af Amer) 6.7 ml/min BUN/Creatinine Ratio 13.7 (10-20) Glucose 163 H (70-99(Fasting)) mg/dl Lactate 0.9 (0.4-2.0) mmol/L Calcium 9.9 (8.6-10.3) mg/dl Magnesium 2.3 (1.7-2.4) mg/dl Total Bilirubin 0.4 (0.2-1.0) mg/dl Direct Bilirubin 0.2 (0-0.2) mg/dl AST 12 L (13-39) U/L ALT 8 (7-52) U/L Alkaline Phosphatase 82 (34-104) U/L Troponin I High Sens 88.4 H* (0-20) pg/ml Total Protein 7.0 (6.0-8.3) gm/dl Albumin 3.6 (3.4-5.0) gm/dl Procalcitonin 0.71 H (0-0.5) ng/ml Adenovirus (PCR) Not Detected (NotDetected) B. pertussis DNA (PCR) Not Detected (NotDetected) B.parapertussis DNA PCR Not Detected (NotDetected) C. pneumoniae DNA (PCR) Not Detected (NotDetected) Coronavirus OC43 (PCR) Not Detected (NotDetected) Coronavirus HKU1 (PCR) Not Detected (NotDetected) Coronavirus 229E (PCR) Not Detected (NotDetected) SARS-CoV-2 (PCR) Not Detected (NotDetected) Coronavirus NL63 (PCR) Not Detected (NotDetected) Human Metapneumovir PCR Not Detected (NotDetected) Influenza Type A (PCR) Not Detected (NotDetected) Influenza Type B (PCR) Not Detected (NotDetected) M. pneumoniae (PCR) Not Detected (NotDetected) Parainfluenza 1 (PCR) Not Detected (NotDetected) Parainfluenza 2 (PCR) Not Detected (NotDetected) Parainfluenza 3 (PCR) Not Detected (NotDetected) Parainfluenza 4 (PCR) Not Detected (NotDetected) RSV (PCR) Not Detected (NotDetected) Entero/Rhino (PCR) Not Detected (NotDetected) Administered Medications Discontinued Medications Albuterol (Albut/Ipratrop 3mg/0.5mg Neb 3 Ml Vial) Confirm Administered Dose 12 ml .ROUTE .STK-MED ONE Stop: 12/17/23 16:50 Last Admin: 12/17/23 16:55 Dose: 12 ml Documented By: JOHN Azithromycin 500 mg/ Dextrose 255 mls @ 125 mls/hr IV NOW ONE Stop: 12/17/23 19:57 Last Admin: 12/17/23 18:06 Dose: Not Given Documented By: JODY Levofloxacin/Dextrose (Levaquin/D5w) 500 mg in 100 mls @ 100 mls/hr IV NOW STA Stop: 12/17/23 18:55 Last Infusion: 12/17/23 19:08 Dose: Infused Documented By: Admin: 12/17/23 18:08 Dose: 100 mls/hr Documented By: JODY Imaging Data Radiologist's Impression: Chest X-Ray 12/17/23 16:47 XR chest 1V portable CLINICAL HISTORY: Sepsis TECHNIQUE: Single frontal radiograph of the chest was obtained. Comparison: Comparison is made to chest radiograph 11/03/2023 FINDINGS: No lines and tubes are seen. Cardiomegaly is noted. Multifocal airspace opacities are seen. No evidence of pleural effusion or pneumothorax. IMPRESSION: Multiple airspace opacities compatible with pneumonia. ACT 112: Negative or not required by law. Electronically signed by: Keith Khoury M.D. 12/17/2023 5:46 PM Discharge Plan Visit Data Chief Complaint: Shortness of Breath/Dyspnea Stated Complaint: PNEUMONIA, COUGH, SOB, WEAKNESS, INCREASE URINE ED Provider: Herve Miguel Discharge Problem: Hypoxia Patient Disposition: Admitted As Inpatient Discharge Instructions Interventions: ED Discharge Assessment Last Done: 12/17/23 21:30
[2023-12-17] MEDS: ALBUT/IPRATROP 3MG/0.5MG NEB 3 ML VIAL ONE (16:55)
[2023-12-17 17:21] LABS: Base Excess VBG -8.6 mEq/L; HCO3 VBG 21 mmol/L; Oxygen Saturation VBG 90.4 %; PCO2 VBG 58 mmHg (38-50); PO2 VBG 64 mmHg; pH VBG 7.16 (7.36-7.41)
[2023-12-17 17:35] LABS: Basophils # (auto) 0.08 K/uL (0.00-0.20); Basophils % (auto) 0.6 %; Eosinophils # (auto) 0.01 K/uL (0.00-0.50); Eosinophils % (auto) 0.1 %; Hematocrit (blood only) 31.8 % (42.0-52.0); Hemoglobin 9.6 g/dl (14.0-18.0); Immature Granulocytes % (auto) 0.7 %; Lymphocytes # (auto) 1.01 K/uL (1.20-3.40); Lymphocytes % (auto) 7.3 %; Mean Corpuscular Hemoglobin 30.2 pg (25.0-34.0); Mean Corpuscular Hgb Conc 30.2 g/dL (32.0-36.0); Mean Platelet Volume 10.5 fL (9.4-12.4); Monocytes % (auto) 13.8 %; Neutrophils % (auto) 77.5 %; Nucleated RBC # (auto) 0.03 K/uL (0.00-0.12); Nucleated RBC % (auto) 0.2 %; Platelet Count 258 K/uL (130-400); RDW Coefficient of Variation 14.9 % (11.5-14.5); Red Blood Count 3.18 M/uL (4.70-6.10)
--- NOTE | 2023-12-17 17:47 | XRay Report ---
XR chest 1V portable CLINICAL HISTORY: Sepsis TECHNIQUE: Single frontal radiograph of the chest was obtained. Comparison: Comparison is made to chest radiograph 11/03/2023 FINDINGS: No lines and tubes are seen. Cardiomegaly is noted. Multifocal airspace opacities are seen. No eviden ce of pleural effusion or pneumothorax. IMPRESSION: Multiple airspace opacities compatible with pneumonia. ACT 112: Negative or not required by law. Electronically signed by: Keith Khoury M.D. 12/17/2023 5:46 PM
[2023-12-17 17:55] LABS: INR 1.9 (0.9-1.1); Prothrombin Time 19.2 Seconds (9.0-12.0)
[2023-12-17] MEDS: AZITHROMYCIN 500 MG in DEXTROSE 5% 250 ML IV ONE (18:06)
[2023-12-17] MEDS: levoFLOXacin/D5W 500 MG/100 ML BAG IV STA (18:08)
[2023-12-17 18:09] LABS: Albumin Level 3.6 gm/dl (3.4-5.0); BUN Creatinine Ratio 13.7 (10-20); Bilirubin Direct 0.2 mg/dl (0-0.2); Bilirubin,Total 0.4 mg/dl (0.2-1.0); Calcium 9.9 mg/dl (8.6-10.3); Creatinine Clr Calc Pharmacy 9.7 ml/min; Est GFR (African American) 7.8 ml/min; Est GFR (Non-African American) 6.7 ml/min; Magnesium 2.3 mg/dl (1.7-2.4); Potassium 5.4 mmol/L (3.5-5.1); Troponin I High Sensitivity 88.4 pg/ml (0-20)
[2023-12-17 19:11] LABS: iSTAT Arterial Blood Gas HCO3 21 meg/L (19-24); iSTAT Arterial Blood Gas pCO2 57 mmHg (35-46); iSTAT Arterial Blood Gas pH 7.18 (7.35-7.45); iSTAT Arterial Blood Gas pO2 73 mmHg (80-95); iSTAT Carbon Dioxide 23 mmol/L (24-31); iSTAT Hematocrit 27 % (42-52); iSTAT Hemoglobin 9.2 g/dl (14.0-18.0); iSTAT Potassium 5.2 mmol/L (3.3-5.0); iSTAT Sodium 139 mmol/L (135-144)
[2023-12-17 19:32] LABS: Adenovirus PCR Not Detected (NotDetected); Bordetella parapertussis PCR Not Detected (NotDetected); Bordetella pertussis PCR Not Detected (NotDetected); Chlamydia pneumoniae PCR Not Detected (NotDetected); Coronavirus 229E PCR Not Detected (NotDetected); Coronavirus CoV-2 (COVID19)PCR Not Detected (NotDetected); Coronavirus HKU1 PCR Not Detected (NotDetected); Coronavirus NL63 PCR Not Detected (NotDetected); Coronavirus OC43PCR Not Detected (NotDetected); Human Metapneumovirus PCR Not Detected (NotDetected); Influenza A PCR Not Detected (NotDetected); Influenza B PCR Not Detected (NotDetected); Mycoplasma pneumoniae PCR Not Detected (NotDetected); Parainfluenza Virus 1 PCR Not Detected (NotDetected); Parainfluenza Virus 2 PCR Not Detected (NotDetected); Parainfluenza Virus 3 PCR Not Detected (NotDetected); Parainfluenza Virus 4 PCR Not Detected (NotDetected); Respiratory Syncytial VirusPCR Not Detected (NotDetected); Rhinovirus/Enterovirus PCR Not Detected (NotDetected)
--- NOTE | 2023-12-17 19:35 | History & Physical Report ---
Date of Service December 17, 2023 Assessment & Plan (1) Acute respiratory failure with hypoxia and hypercapnia: (2) Multifocal pneumonia: (3) CKD (chronic kidney disease) stage 5, GFR less than 15 ml/min: (4) BPH (benign prostatic hyperplasia): (5) Hypertension: (6) CKD (chronic kidney disease), stage V: (7) CAD (coronary artery disease): (8) Anticoagulated on Coumadin: (9) Metabolic encephalopathy: (10) Respiratory acidosis: Admission and Anticipated Discharge Date Admission Date: 77 year old male who presented to the ED with weakness and shortness of breath Acute hypoxic hypercarbic respiratory failure with multifocal pneumonia and respiratory acidosis/metabolic encephalopathy- ABG 7.18/73/57 on oxymask. CXR with multifocal PNA. CT chest pending. WBC 13, procal 0.7. RVP negative. Given levaquin in ED. Continue renally dosed levaquin given cephalosporin allergy. Will start on bipap and recheck ABG in 2 hours for further adjustment. BNP elevated, concern for some volume overload in imaging. Will give a dose of iv lasix 40 mg daily instead of his home torsemide 20 mg daily. Consult pulmonary if no improvement. CKD5 due to obstructive uropathy and cardiorenal syndrome per nephro- Renal function relatively stable compared to last month. Not on dialysis yet but has fistula. Follows with Dr Avelar. Consult nephro Hyperkalemia- will start on lokelma. Recheck in am S/p TAVR for severe -Prior echo from 10/15 reviewed. Normal EF, Anticoagulated on coumadin- INR 1.9. Getting levaquin. Will continue coumadin and check INR daily for further adjustment. BPH s/p TURP- on finasteride Elevated trop- likely demand in setting of above and CKD. Will trend trop for completeness. HTN- continue amlodipine DVT ppx- sc heparin Dispo- PCU tele on bipap Updated at bedside Full code Time spent- Approx 80 mins History of Present Illness Chief Complaint: SOB and lethargy x 2 days. Primary Care Provider: Mike Maki MD This is a 77-year-old male who has a significant past medical history of CAD with history of [place] to left circumflex, HTN, HLD, T2DM, hyperparathyroidism, history of TAVR secondary to aortic valve stenosis, CKD stage V with creation of left upper extremity AV fistula not yet mature who presents to ED secondary to worsening shortness of breath and lethargy x 2 days. is at bedside who elicits most of history. Patient was seen and evaluated in nephrology clinic at [facility] for an acute appointment due to worsening shortness of breath and lethargy. was uncertain if related to kidney therefore made an appointment with nephrology. In clinic patient was referred to ED for further evaluation. states over the last 2 to 3 days she has noticed increasing shortness of breath, urinary frequency, lethargy and confusion. She states this is very unlike him. She denies any known fever, cough, chest pain, nausea, vomiting, abdominal pain, dysuria, hematuria, melena or hematochezia. There are no known sick contacts. He does not smoke or use any alcohol currently. In ED patient was noted to be hypoxic at 65% in triage and which is improved with oxy mask and 10 L of oxygen. lab work was notable for leukocytosis at 13.8 K, H&H 9.6 and 31.8, respiratory acidosis with a pH of 7.18 and CO2 of 57, potassium 5.4, BUN/creatinine 97 and 7.10, procalcitonin 0.71 and BNP 587. His respiratory bio fire was negative. Chest x-ray revealed multifocal airspace opacity compatible with pneumonia. He received IV Levaquin and was recommended for admission. Allergies Allergy/AdvReac Type Severity Reaction Status Date / Time cephalexin Allergy Severe Tongue and Verified 11/24/23 07:00 face swelling tamsulosin Allergy Severe angioedema Verified 11/24/23 07:00 Home Medications Medication Instructions Recorded Confirmed Type amlodipine 5 mg tablet 5 mg PO HS 07/26/18 12/17/23 History atorvastatin 80 mg tablet 80 mg PO HS 07/01/22 12/17/23 History finasteride 5 mg tablet 5 mg PO HS 07/01/22 12/17/23 History aspirin 81 mg chewable tablet 81 mg PO HS 07/04/22 12/17/23 History yhvsmjoi-wke-Lk-FA 1 mg 1 tab PO HS 07/04/22 12/17/23 History tablet calcitriol 0.5 mcg capsule 0.5 mcg PO 3XWK 04/28/23 12/17/23 History calcium acetate(phosphat bind) 667 667 mg PO TID 12/17/23 12/17/23 History mg capsule ciprofloxacin HCl 500 mg tablet 500 mg PO DAILY 12/17/23 12/17/23 History fluocinonide 0.05 % topical 0.05 applic topical DAILY 12/17/23 12/17/23 History solution torsemide 20 mg tablet 20 mg PO DAILY 12/17/23 12/17/23 History triamcinolone acetonide 0.1 % 0.1 applic topical BID 12/17/23 12/17/23 History topical cream warfarin 5 mg tablet 5 mg PO DAILY 12/17/23 12/17/23 History Past Med/Surg History Problem List (Updated 12/17/23 @ 20:31 by Kennedi Lee PA-C) Respiratory acidosis Metabolic encephalopathy Anticoagulated on Coumadin Multifocal pneumonia Acute respiratory failure with hypoxia and hypercapnia Diverticulitis of ascending colon UTI (urinary tract infection) Urinary tract infection due to Pseudomonas aeruginosa (Acute) CKD (chronic kidney disease) stage 5, GFR less than 15 ml/min (Acute) Colon polyps Encounter for pre-operative examination BPH (benign prostatic hyperplasia) Hypertension 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 " On 04/03/11 18:15 Norma Vargas wrote "with outflow obstruction " On 04/03/11 18:15 Norma Vargas wrote "with outflow obstruction " On 04/03/11 18:15 Norma Vargas wrote "with outflow obstruction " Absent renal function (04/03/11) Medical History Gastric nodule Type 2 diabetes mellitus NIDDM Bifascicular block ongoing since 2010 Umbilical hernia chronic per patient-denies change or worsening History of blood transfusion pre-op aortic valve replacement CAD (coronary artery disease) s/p 1 stent in 2019 HTN (hypertension) controlled, stable per pt History of diverticulitis entered into EMR 09/2022-patient states last flare was 1 year ago History of colon polyps BPH (benign prostatic hyperplasia) CKD (chronic kidney disease), stage V Arthritis Hx of bladder cancer surgery only Hyperlipidemia Surgical History History of cataract surgery left and right H/O cystoscopy History of tooth extraction Aortic valve replaced 2019 at [facility] (followed by Dr. Wei) History of heart artery stent 1 stent placed 2019 History of orchiectomy, unilateral History of arthroscopy of left knee History of colonoscopy Family History Mother Family history of diabetes mellitus Father Family hx of colon cancer Other No family history of adverse response to anesthesia Social History Smoking Status: Unknown if ever smoked Tobacco Type: Cigarettes Second Hand Exposure: No; Do You Dip or Chew Tobacco: No; Hx Alcohol Use: No Hx Substance Use: No Preferred Language: Frisian Communication Ability: Effective Certified Nutritionist Required: No Beliefs That Will Affect Care: None Current Living Situation: Spouse Feels Safe at Home: Yes Assistive Devices: Glasses and Hearing Aid - Bilateral Review of Systems Review of Systems: All systems reviewed & are unremarkable except as noted in Subjective Physical Exam Physical Exam: General: Lying comfortably in bed, not in acute distress, on oxymask HEENT: EOMI, LEAH, MMM Chest: Fair breath sounds bilaterally with scattered wheezes CVS: Regular rate and rhythm, normal heart sounds Abdomen: Soft, non tender, not distended, normal bowel sounds Neuro: Awake, alert, oriented, conversing well, non focal Extremities: No edema Results & Data Results & Data Vital Signs (Past 12 Hours) Vital Signs Temp Pulse Pulse Resp BP Pulse Ox O2 Del Method 12/17/23 18:45 92 H 27 H 121/101 H 93 Oxymask 12/17/23 18:33 94 H 25 H 125/71 92 Oxymask 12/17/23 18:27 94 H 25 H 91 Oxymask 12/17/23 18:15 94 H 27 H 129/63 92 Oxymask 12/17/23 18:00 96 H 27 H 128/63 92 Oxymask 12/17/23 17:45 95 H 25 H 123/87 93 Oxymask 12/17/23 17:42 96 H 28 H 92 Oxymask 12/17/23 17:31 93 Nebulizer 12/17/23 17:15 97 H 27 H 137/69 93 Nebulizer 12/17/23 17:09 94 H 27 H 135/73 92 Nebulizer 12/17/23 17:04 93 H 15 93 Non-rebreather 12/17/23 17:00 91 H 34 H 93 Nebulizer 12/17/23 16:51 98 H 12/17/23 16:45 133/83 12/17/23 16:38 36.6 C 94 H 22 121/54 L 65 L Room Air O2 Flow Rate 12/17/23 18:45 10 12/17/23 18:33 10 12/17/23 18:27 10 12/17/23 18:15 10 12/17/23 18:00 10 12/17/23 17:45 10 12/17/23 17:42 10 12/17/23 17:31 12/17/23 17:15 12/17/23 17:09 12/17/23 17:04 15 12/17/23 17:00 12/17/23 16:51 12/17/23 16:45 12/17/23 16:38 Laboratory Results Short CBC 12/17/23 Range/Units 16:51 WBC 13.80 H (4.8-10.8) K/ul Hgb 9.6 L (14.0-18.0) g/dl Hct 31.8 L (42.0-52.0) % Plt Count 258 (130-400) K/uL BMP 12/17/23 16:51 Sodium 139 Potassium 5.4 H Chloride 109 H Carbon Dioxide 21 BUN 97 H Creatinine 7.10 H* Glucose 163 H Calcium 9.9 Liver Function 12/17/23 Range/Units 16:51 Total Bilirubin 0.4 (0.2-1.0) mg/dl Direct Bilirubin 0.2 (0-0.2) mg/dl AST 12 L (13-39) U/L ALT 8 (7-52) U/L Alkaline Phosphatase 82 (34-104) U/L Albumin 3.6 (3.4-5.0) gm/dl I have independently reviewed and interpreted patient's admitting labs including CBC, CMP, PT/INR, mag, phos, abg, bnp, resp biofire and troponin. Diagnostic Findings Chest X-Ray 12/17/23 16:47 XR chest 1V portable CLINICAL HISTORY: Sepsis TECHNIQUE: Single frontal radiograph of the chest was obtained. Comparison: Comparison is made to chest radiograph 11/03/2023 FINDINGS: No lines and tubes are seen. Cardiomegaly is noted. Multifocal airspace opacities are seen. No evidence of pleural effusion or pneumothorax. IMPRESSION: Multiple airspace opacities compatible with pneumonia. ACT 112: Negative or not required by law. Electronically signed by: Keith Khoury M.D. 12/17/2023 5:46 PM Medications Administered Medication List Discontinued Medications Albuterol (Albut/Ipratrop 3mg/0.5mg Neb 3 Ml Vial) Confirm Administered Dose 12 ml .ROUTE .STK-MED ONE Stop: 12/17/23 16:50 Last Admin: 12/17/23 16:55 Dose: 12 ml Documented By: JOHN Azithromycin 500 mg/ Dextrose 255 mls @ 125 mls/hr IV NOW ONE Stop: 12/17/23 19:57 Last Admin: 12/17/23 18:06 Dose: Not Given Documented By: JODY Levofloxacin/Dextrose (Levaquin/D5w) 500 mg in 100 mls @ 100 mls/hr IV NOW STA Stop: 12/17/23 18:55 Last Infusion: 12/17/23 19:08 Dose: Infused Documented By: Admin: 12/17/23 18:08 Dose: 100 mls/hr Documented By: JODY Code Status & VTE Plan Code Status FULL CODE VTE Prophylaxis Plan VTE Prophylaxis will be ordered: Yes
[2023-12-17 19:39] LABS: HCO3 ABG 20 mmol/L (19-24); Oxygen Saturation ABG 95.8 % (90-95); PCO2 ABG 52 mmHg (35-46); PO2 ABG 73 mmHg (80-95)
[2023-12-17 19:40] LABS: Allen Test Pos (Pos)
[2023-12-17 20:01] LABS: Phosphorus 5.8 mg/dl (2.5-4.9)
[2023-12-17 20:32] LABS: Troponin I High Sensitivity 92.6 pg/ml (0-20)
--- NOTE | 2023-12-17 20:58 | CT Scan Report ---
Exam(s): CT CHEST Without Contrast EXAM: CT Chest Without Intravenous Contrast CLINICAL HISTORY: Respiratory failure. TECHNIQUE: Axial computed tomography images of the chest without intravenous contrast. CTDI is 27.47 mGy and DLP is 845.92 mGy-cm. Automated exposure control was utilized for the study. A dose lowering technique was utilized adhering to the principles of ALARA. COMPARISON: Chest radiograph 12/17/2023 FINDINGS: Lungs: Diffuse bilateral airspace opacities bilaterally are concerning for atypical infection and/or aspiration. Interseptal thickening is also noted. Pleural space: Small bilateral pleural effusions. No pneumothorax. Heart: Unremarkable. No cardiomegaly. No significant pericardial effusion. No significant coronary artery calcifications. Bones/joints: There are degenerative changes of the spine. No acute fracture. Soft tissues: Unremarkable. Vasculature: Moderate atherosclerosis. No thoracic aortic aneurysm. Lymph nodes: Unremarkable. No enlarged lymph nodes. IMPRESSION: 1. Diffuse bilateral airspace opacities bilaterally are concerning for atypical infection and/or aspiration. Cannot exclude superimposed pulmonary edema. 2. Small bilateral pleural effusions. Electronically signed by: Juanis Elizalde MD 12/17/23 20:58 PM
[2023-12-17 21:05] LABS: HCO3 ABG 21 mmol/L (19-24); Oxygen Saturation ABG 96.7 % (90-95); PCO2 ABG 54 mmHg (35-46); PO2 ABG 78 mmHg (80-95)
[2023-12-17 21:41] LABS: Allen Test Pos (Pos)
[2023-12-17] MEDS ORDERED: ONDANSETRON INJ 2 MG/ML 2 ML VIAL IV PRN (21:48)
[2023-12-17] MEDS ORDERED: POLYETHYLENE (MIRALAX) 17 GM PACK PO PRN (21:48)
[2023-12-17 21:59] LABS: pH ABG 7.19 (7.35-7.45)
[2023-12-17] MEDS: FUROSEMIDE 40 MG/4 ML VIAL IV ONE (22:31)
[2023-12-17] MEDS: CALCIUM ACETATE 667 MG CAP/TAB PO SCH (22:55)
[2023-12-17] MEDS: WARFARIN SOD 5 MG TAB PO SCH (22:55)
[2023-12-17] MEDS: FINASTERIDE 5 MG TAB PO SCH (22:55)
[2023-12-17] MEDS: ATORVASTATIN 40 MG TAB PO SCH (22:55)
[2023-12-17] MEDS: TRIAMCINOLONE ACET 0.1% CR 15 GM TUBE TOP SCH (23:00)
[2023-12-17] MEDS: SODIUM ZIRCONIUM CYCLOSILICATE 10 GM PACKET PO SCH (23:00)
[2023-12-17] MEDS: ASPIRIN 81 MG ECTAB PO SCH (23:00)
[2023-12-17] MEDS: metroNIDAZOLE 500 MG/100 ML BAG IV SCH (23:01)
[2023-12-17] MEDS: HEPARIN SOD 5,000 UNIT/0.5 ML VIAL SQ SCH (23:01)
[2023-12-17 23:02] LABS: Base Excess ABG -7.3 mEq/L (-9-1.8); HCO3 ABG 20 mmol/L (19-24); Oxygen Saturation ABG 96.8 % (90-95); PCO2 ABG 47 mmHg (35-46); PO2 ABG 76 mmHg (80-95); pH ABG 7.24 (7.35-7.45)
[2023-12-17 23:04] LABS: Allen Test Pos (Pos)
[2023-12-17 23:08] LABS: Appearance Urine Turbid (Clear); Bacteria Urine Automated None Seen (None Seen); Bilirubin Urine Negative (Negative); Blood Urine 1+ (Negative); Color Urine Yellow; Epithelial Cell Urine Auto 0-2 /hpf (0-2); Glucose Urine UA Negative (Negative); Ketones Urine Negative (Negative); Leukocyte Esterase Urine 3+ (Negative); Nitrite Urine Negative (Negative); Protein Urine 2+ (Negative); RBC Urine Automated 0-2 /hpf (0-2); Specific Gravity Urine 1.014 (1.000-1.030); Urobilinogen Urine Negative (Negative); WBC Urine Automated >50 /hpf (0-5); pH Urine 5.5 (4.5-7.5)
--- OUTSIDE RECORDS SUMMARY | 2023-12-18 03:52 | External Medical Summary ---
Author Name Unknown Address Unknown Organization [id number] [address] [place] [id number] Laboratory Report Ordering Provider Test Date Status CHER CARCAMO 2023 14:26:06 Final Observation Date Value Abnormality Reference (Units ) Status WBC, Total 2023 14:26:06 13.27 Above high normal 4 .00-10.80 (K/uL) Final RBC 2023 14:26:06 3.05 4.50-5.25 (M/uL) Final Hemoglobin 2023 14:26:06 9.5 Below low normal 14 .0-16.8 (g/dL) Final HCT 2023 14:26:06 31.8 Below low normal 40. 0-48.4 (%) Final MCV 2023 14:26:06 104.3 82.0-99.5 (fL) Final MCH 2023 14:26:06 31.1 27.0-34.0 (pg) Final MCHC 2023 14:26:06 29.9 32.0-36.0 (g/dL) Final RDW 2023 14:26:06 14.9 11.5-15.5 (%) Final Platelets 2023 14:26:06 242 140-400 (K /uL) Final MPV 2023 14:26:06 10.1 6.6-11.1 ( fL) Final Performing Location [facility]ORY [facility] [address] [place] [id number]
--- OUTSIDE RECORDS SUMMARY | 2023-12-18 03:52 | External Medical Summary ---
Author Name Unknown Address Unknown Organization [id number] [address] [place] [address] Laboratory Report Ordering Provider Test Date Status CHER CARCAMO 2023 14:26:06 Final Observation Date Value Abnormality Reference (Units ) Status SYNC LEUKOCYTES IN BLOOD BY AUTOMATED COUNT 2023 14:26:06 13.27 Above high normal 4.00-10.80 (K/uL) Final Segs 2023 14:26:06 80.9 Above high normal 40.0-75.0 (%) Final Lymphs % 2023 14:26:06 5.9 Below low normal 18.0-42.0 (%) Final Monos 2023 14:26:06 12.7 Above high normal 1.0-11.0 (%) Final Eosinophils 2023 14:26:06 0.1 0.0-6.0 (%) Final Basos 2023 14:26:06 0.4 0.0-2.0 (%) Final Absolute Segs 2023 14:26:06 10.75 Above high normal 1.80-7.70 (K/uL) Final Lymphs, absolute 2023 14:26:06 0.78 Below low normal 1.00-4.80 (K/ul) Final Monos, Abs 2023 14:26:06 1.68 Above high normal 0.00-1.10 (K/uL) Final Eos, Abs 2023 14:26:06 0.01 0.00-0.70 (K/uL) Final Basos, Abs 2023 14:26:06 0.05 0.00-0.20 (K/uL) Final [facility]forming Location [facility] [address] [place] [id number]
--- OUTSIDE RECORDS SUMMARY | 2023-12-18 03:52 | External Medical Summary | Summary of Care ---
Author Name Unknown Organization [facility] Address [address] [place] [address] Phone [phone] Care Team Providers Care Echo Tech Name Role Phone Mike Maki MD Primary Care Provider + Reason for Visit * Reason Onset Date Comments Follow Up 12/16/2023 Advice 12/16/2023 Encounter Details Date Type Department Care Team (Late st Contact Info) Description 12/16/2023 Telephone NephKatherine silver [address] [place] [address] Shar Avelar MD [address] [facility] [place] [address] Follow Up; Advice Allergies Active Allergy Reactions Criticality Noted Date Comments Cephalexin 03/13/2011 Tamsulosin Hcl Unknown High 04/15/2011 Tongue swelling documented as of this encounter (statuses as of 2023) Medications Medication Sig Dispensed Refills Start Date End Date Status Vit-Fe Fumarate-FA ( PLUS/IRON) 27-1 MG TABS Take 1 Tab by mouth daily. 90 Tab 1 12/15/2019 Active Additional Information Patient taking differently:1 Tablet Oral Daily(AM),Takes at night, Reported on 09/14/2023 Aspirin EC 81 MG Oral Tablet Delayed Release Take 1 Tablet by mouth at bedtime. 100 Tablet 3 07/04/2022 Active Calcitriol 0.25 MCG Oral Capsule (Rocaltrol) TAKE 1 CAPSULE IN THE MORNING 90 Capsule 3 10/03/2022 Active Atorvastatin Calcium 80 MG Oral Tablet (Lipitor)Indicatio ns:Coronary artery disease of [place] artery of [place] heart with stable angina pectoris (HCC) Take 1 Tablet by mouth at bedtime. 90 Tablet 3 01/13/2023 Active amLODIPine Besylate 5 MG Oral Tablet (Norvasc) Take 1 Tablet by mouth at bedtime. 90 Tablet 3 02/18/2023 Active Fluocinonide 0.05 % External SolutionIndication s:Seborrheic dermatitis Apply topically to affected area daily. Apply to scalp daily until symptoms resolve. 60 mL 3 03/18/2023 Active Torsemide 20 MG Oral Tablet (Demadex)Indicatio ns:CKD (chronic kidney disease) stage 5, GFR less than 15 ml/min (HCC) Take 1 Tablet by mouth in the morning. 90 Tablet 3 07/10/2023 Active Additional Information Patient taking differently:20 mg Oral Daily(AM),Takes at night, Reported on 09/14/2023 Finasteride 5 MG Oral Tablet (Proscar) Take 1 Tablet by mouth in the morning. 90 Tablet 3 07/22/2023 Active Additional Information Patient taking differently:5 mg OralHS, Takes at bedtime, Reported on 09/14/2023 Triamcinolone Acetonide 0.1 % External Cream (Aristocort)Indica tions:Rash and nonspecific skin eruption Apply topically to affected area 2 times a day. 80 g 3 08/25/2023 Active Calcium Acetate (Phos Binder) 667 MG Oral Capsule (Phoslo)Indication s:CKD (chronic kidney disease) stage 5, GFR less than 15 ml/min (HCC) Take 1 Capsule by mouth in the morning and 1 Capsule at noon and 1 Capsule in the evening. Take with meals. 270 Capsule 3 09/23/2023 Active Warfarin Sodium 5 MG Oral Tablet (Coumadin)Indicati ons:S/P TAVR (transcatheter aortic valve replacement),Aorti c valve stenosis, etiology of cardiac valve disease unspecified,Antico agulation management encounter Take 1 Tablet by mouth every evening. 90 Tablet 3 11/04/2023 Active Ciprofloxacin HCl 500 MG Oral Tablet (Cipro) Take 1 Tablet by mouth in the morning. 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 11/14/2019 Overview: 10/2019 Coronary artery disease of n ative artery of [place] heart with stable angina pectoris 10/31/2019 S/P primary angioplasty with coronary stent 10/16 Renal osteodystrophy 06/01/2019 Hypertensive kidney disease with chronic kidney disease stage V 06/01/2019 Hyperparathyroidism, secondary renal 03/02/2018 Nonrheumatic aortic valve stenosis 08/28/2016 Hyperlipidemia LDL goal <70 12/20/2013 HTN, goal below 140/90 09/16/2013 Benign prostatic hyperplasia with urinary obstru ction 04/22/2011 Overview: ICD-10 update of inactive term documented as of this encounter (statuses as of 2023) Resolved Problems Problem Noted Date Diagnosed Date Resolved Date Type 2 diabetes mellitus wit h diabetic chronic kidney disease 04/11/2020 02/20/2022 Closed fracture of one rib o f left side with routine healing 02/29/2020 02/29/2020 Pre-diabetes 01/05/2020 07/11/2020 Aortic stenosis, severe 11/10/201905/20 Acute blood loss anemia 11/10/2019/2 08/2020 Symptomatic anemia 11/10/2019 Elevated troponin 11/10/2019 11/14/2019 History of drainage of abscess 05/26/2018 07/11/2020 Overview: Testes 2012 Mass of skin of hand, left 05/26/2018 0 11/10/2022 UTI symptoms 10/11/2016 05/26/2018 Testicular abscess 01/01/2012 9 Overview: 2012 Kidney disease, chronic, sta ge IV (GFR 15-29 ml/min) 08/18/2011 06/01/2019 Hemorrhoids, external without complications 08/13/2011 05/26/2018 BPH without obstruction/lowe r urinary tract symptoms 04/03/2011 04/22/2011 HTN, goal below 140/90 03/13/201104/22 documented as of this encounter (statuses as of 2023) Immunizations Name Administration Dates Next Due COVID-19 mRNA, LNP-s, No Pre serve, 2-Dose Series ([employer]) 09/19/2020,08/29/2020 Hepatitis B, 20+ yrs 01/08/2021,08/08/2020,07/1108/08/2020 PPD 08/06/2015,05/22/2014,05/03/2012 Pneumococcal Conjugate Vacc, 13 Valent (Prevnar) 06/22/2014 Pneumococcal Polysaccharide PPV23 (Pneumovax) 05/03/2012 TDAP (age 10 and older)(Boostrix) 09/29/2014 Varicella Zoster Vaccine (Adult) 12/07/2012 Zoster Vaccine Recombinant (Shingrix) 12/15/2018 ,07/15/2018 documented as of this encounter Social History Tobacco Use Types Packs/Day Years Used Date Smoking Tobacco: Former Cigarettes 0.5 37 0 07/07/1974 - 07/07/2011 Smokeless Tobacco: Never Comments:quit 7-8 years ago (09/27) Alcohol Use Standard Drinks/Week Comments No 0 (1 standard drink = 0.6 oz pur e alcohol) PHQ-2 Answer Date Recorded PHQ Adult Total Score 0 08/03/2023 Hunger Vital Sign Answer Date Recorded Within the past 12 months, y ou worried that your food would run out before you got the money to buy more. Never true 08/03/19 24 Within the past 12 months, t he food you bought just didn't last and you didn't have money to get more. Never true 08/03/2023 Childcare Answer Date Recorded Do you feel overwhelmed with taking care of a child, family member or friend? No 08/03/2023 Does your family need help f inding childcare? (Household - for ages 0-17 years) Not on file 08/03/2023 Clothing Answer Date Recorded Have you been unable to get clothing when it was really needed? No 08/03/2023 Is your family able to get c lothes or diapers when needed? (Household - for ages 0-17 years) Not on file 08/03/2023 Personal Safety Answer Date Recorded Do you feel unsafe or have concerns for your saf ety? No 08/03/2023 Do you have concerns for you r family's safety? (Household - for ages 0-17 years) Not on file 08/03/2023 Utilities Answer Date Recorded Do you have trouble paying y our heating, water, or electric bill? No 08/03/2023 Is your family able to pay t he heat, water, or electric bill? (Household - for ages 0-17 years) Not on file 08/03/2023 Does your family have access to good internet? (Household - for ages 0-17 years) Not on file 08/03/2023 Employment Status Answer Date Recorded Are you unemployed or without regular income? No 08/03/2023 Does the household have a re lar source of income? (Household - for ages 0-17 years) Not on file 08/03/2023 Social Connections Answer Date Recorded How often do you feel lonely or isolated from th ose around you? Never 08/03/2023 Financial Resource Strain Answer Date R ecorded Do you have any trouble payi ng for your medications, or do you think you might in the future? No 08/03/2023 Does your family have troubl e paying for medicine? (Household - for ages 0-17 years) Not on file 08/03/2023 Transportation Needs Answer Date Record ed READ ONLY Do you have troubl e getting a ride to medical visits or work? Never True 08/03/2023 Does your family have a hard time getting a ride to doctors visits? (Household - for ages 0-17 years) Not on file 08/03/2023 Has lack of transportation k ept you from medical appointments, meetings, work, or from getting things needed for daily living? Check all that apply. (Adult - for ages 18 years and over) Not on file 08/03/2023 Do you (or your family) have trouble finding or paying for a ride (transportation)? (Household - for ages 0-17 years) Not on file 08/03/2023 Housing Stability Answer Date Recorded Do you currently live in a s helter or have no steady place to sleep at night? No 08/03/2023 READ ONLY Do you think you a re at risk of becoming homeless? No 08/03/2023 Does your family worry about paying for your home or becoming homeless? (Household - for ages 0-17 years) Not on file 0 08/03/2023 Are you homeless or worried that you might be in the future? (Adult - for ages 18 years and over) Not on file Are you (or your family) vernon eless or worried that you might be in the future? (Household - for ages 0-17 years) Not on file Food Insecurity Answer Date Recorded Do you need food for this week? No 08/03/2023 Are you able to get enough f ood for your family? (Household - for ages 0-17 years) Not on file 08/03/2023 Does your family need food t his week? (Household - for ages 0-17 years) Not on file 08/03/2023 Do you always have enough fo od for your family? (Household - for ages 0-17 years) Not on file 08/03/2023 Sex and Gender Information Value Date Recorded Sex Assigned at Male 02/24/2020 10:08 AM EDT Gender Identity Male 02/24/2020 10:08 AM EDT Sexual Orientation Straight 02/24/2020 10 :08 AM EDT Job Start Date Occupation Industry Not on file Not on file Not on file documented as of this encounter Functional Status Functional Status Response Date of Assess ment Are you deaf or do you have serious difficulty h earing? No 11/22/2019 Are you blind or do you have serious difficulty seeing, even when wearing glasses? No 11/22/2019 Do you have serious difficul ty walking or climbing stairs? (5 years old or older) No 11/22/2019 Do you have difficulty dress ing or bathing? (5 years old or older) No 11/22/2019 Because of a physical, menta l, or emotional condition, do you have difficulty doing errands alone such as visiting a doctor s office or shopping? (15 years old or older) No 11/22/19 Cognitive Status Response Date of Assessm ent Because of a physical, menta l, or emotional condition, do you have serious difficulty concentrating, remembering, or making decisions? (5 years old or older) No 11/22/2019 documented as of this encounter Miscellaneous Notes * Telephone Encounter - Avani Christianson OSA - 2023 8:20 AM EDT Pt and on the line requesting a call back. Pt states he has short of breath, weakness, frequent urination. Pt requesting appt with Dr. Avelar for today and there is nothing available. Offered first available ( Jan 07) pt refused. Please contact pt to advise. Thank you! * Telephone Encounter - Marcie Leyva RN - 12/16/2023 12:44 PM EDT TE with pt and his . We discussed possibility of a referral to transplant service other than [facility] as they have denied the referral. Pt and both discussed the fact that they want to havequality of life and feel that becoming involved in the transplant process will cost them time to enjoy life. They are going to discuss this and will get back to us. He states that his AVF has healed well. * Telephone Encounter - Marice Leyva RN - 12/16/2023 12:44 PM EDT ----- Message from Shar Avelar MD sent at 12/14/2023 3:01 PM EDT ----- Can you ask him if he wants to be considered for renal transplant at another center as he has a lotof wait time. [facility] has said NO. Need to make this decision soon before we loose the time permanently. Does not mean he will be listed . It just means he has potential I can talk with him also if he has questions. Shar ===View-only below this line=== ----- Message ----- From: Whit Daugherty RN Sent: 12/14/2023 2:39 PM EDT To: Damien Hand MD; Shar Avelar MD; # Subject: Follow up from Transplant Dr Avelar, I wanted to follow back up with you regarding this mutual patient. I had asked your thoughts if he was being referred to another center in July 2023 and you were going to talk with him. [facility] decided that he was not a candidate with transplant and I wanted to give him time to be evaluated and listed at another center to transfer his time before we close him and he would lose thattime. Is he being evaluated at another center? Or can we close now? Please advise and thank you so much. documented in this encounter Plan of Treatment Upcoming Encounters Date Type Department Care Team (Late st Contact Info) Description 12/24/2023 10:10 AM EDT Anticoagulation Pharmacy, [facility] [address] [place] [address] Pharmacist1, [facility] [address] [facility] [place] [address] 12/24/2023 10:20 AM EDT Office Visit General Internal Medicine [facility] [address] [facility] [place] [address] Mike Maki MD [address] [facility] [place] [address] 04/21/2024 11:00 AM EST Cardiac Studies Cardiac Studies, [facility] [address] [facility] [place] [address] 05/10/2024 11:30 AM EST Office Visit Cardiology, [facility] [address] [facility] [place] [address] Prashant Stovall DO [address] [facility] [place] [address] 05/20/2024 1:00 PM EST Procedure Only Urology [facility] [address] [place] [address] Chela Branch MD [address] [place] [address] 05/24/2024 2:20 PM EST Office Visit Nephrology, [facility] [address] [place], [place] [address] Shar Avelar MD [address] [place] [address] Health Maintenance Due Date Last Done Comments COVID-19 Vaccine ( season) 2023 09/19/2020, 08/29/2020 HbA1c 09/18/2023 03/20/2023, 07/0 05/2022, 03/20/2022, Additional history exists Influenza Vaccine (FLU shot) (#1) 2024 Diabetic Eye Exam 03/31/2024 03/31/2023, , 07/29/2021, Additional history exists Diabetic Foot Exam 06/17/2024 06/17/2023, 1 , 01/17/2021, Additional history exists Depression Screening 08/02/2024 08/03/2023 DTaP,Tdap,and Td Vaccines (2 - Td or Tdap) 09/29/2024 09/29/2014 Pneumococcal Vaccine: 65+ Years Completed 06/22/2014, 05/03/2012 Zoster Vaccines Completed 12/15/2018, 06/19, 12/07/2012 Hepatitis B Vaccine Completed 01/08/2021, 08/08/2020, 07/11/2020 HPV (Gardasil) Vaccine Aged Out No lo nger eligible based on patient's age to complete this topic MENINGOCOCCAL (MENACTRA/MENVEO) Aged Out No longer eligible based on patient's age to complete this topic documented as of this encounter Medical Devices Not on filedocumented as of this encounter Advance Directives * Full Code (Latest Code Status on File) Date Activated Date Inactivated Comments 11/22/2019 10:02 AM 11/23/2019 5:36 PM This order re flects the patients wishes and were consensually agreed upon. Question Answer Comments Discussion of Advance Directives occurred with: Patient Does the patient have a Living Will? No Does the patient have Health Care Power of Attor iglesia? No * Full Code Date Activated Date Inactivated Comments 11/10/2019 6:48 PM 11/12/2019 2:18 PM This order r eflects the patients wishes and were consensually agreed upon. Question Answer Comments Discussion of Advance Directives occurred with: Patient/Family * Full Code Date Activated Date Inactivated Comments 10/31/2019 11:27 AM 10/31/2019 10:24 PM This order reflects the patients wishes and were consensually agreed upon. Question Answer Comments Discussion of Advance Directives occurred with: Not Discussed Does the patient have a Living Will? No Does the patient have Health Care Power of Attor iglesia? No Care Teams Echo Tech Relationship Specialty Start Date End Date Mike Maki MD [address] [facility] [place] [address] PCP - General Internal Medicine 03/13/11 documented as of this encounter
--- OUTSIDE RECORDS SUMMARY | 2023-12-18 03:52 | External Medical Summary | Summary of Care ---
Author Name Unknown Organization [facility] Address [address] [place] [address] Phone [phone] Care Team Providers Care Staffing And Scheduling Coordinator Name Role Phone Mike Maki MD Primary Care Provider + Reason for Visit * Reason Onset Date Comments Follow Up 12/16/2023 Encounter Details Date Type Department Care Team (Late st Contact Info) Description 12/16/2023 Telephone NephrologyKatherine [address] [place] [address] Shar Avelar MD 200 [facility] [place] [address] Follow Up Allergies Active Allergy Reactions Criticality Noted Date Comments Cephalexin 03/13/2011 Tamsulosin Hcl Unknown High 04/15/2011 Tongue swelling documented as of this encounter (statuses as of 12/16/2023) Medications Medication Sig Dispensed Refills Start Date [...] Oral Tablet (Lipitor)Indicatio ns:Coronary artery disease of [place] artery of [place] heart with stable angina pectoris (HCC) Take [...] as of this encounter (statuses as of 12/16/2023) Active Problems Problem Noted Date Diagnosed Date [...] artery disease of n ative artery of [place] heart with stable angina pectoris 10/31/2019 S/P [...] as of this encounter (statuses as of 12/16/2023) Resolved Problems Problem Noted Date Diagnosed Date [...] as of this encounter (statuses as of 12/16/2023) Immunizations Name Administration Dates Next Due COVID-19 mRNA, LNP-s, No Pre serve, 2-Dose Series ([employer]) 09/19/2020,08/29/2020 Hepatitis B, 20+ yrs 01/08/2021,08/08/2020,07/1108/08/2020 PPD [...] encounter Miscellaneous Notes * Telephone Encounter - Marcie Leyva RN - 12/16/2023 12:44 PM EDT TE with pt and his . We discussed possibility of a referral to transplant service other than [facility] as they have denied the referral. Pt and both discussed the fact that they want to havequality of life and feel that becoming involved in the transplant process will cost them time to enjoy life. They are going to discuss this and will get back to us. He states that his AVF has healed well. * Telephone Encounter - Marcie Leyva RN - 12/16/2023 12:44 PM EDT ----- Message from Shar Avelar MD sent at 12/14/2023 3:01 PM EDT ----- Can you ask him if he wants to be considered for renal transplant at another center as he has a lotof wait time. Lawrencegarry has said NO. Need to make this [...] you were going to talk with him. Lawrencemarysolvic decided that he was not a candidate [...] Description 12/24/2023 10:10 AM EDT [facility], [facility] [place] [address] [place] [address] Pharmacist1, [facility] [address] [place] [address] 12/24/2023 10:20 AM EDT Office Visit General Internal Medicine [facility] [place] [address] [place] [address] Mike Maki MD [address] [place] [address] 04/21/2024 11:00 AM EST Cardiac Studies Cardiac Studies, [facility] [address] [place] [address] 05/10/2024 11:30 AM EST Office Visit Cardiology, [facility] [address] [place] [address] Prashant Stovall, [address] [facility] [place] [address] 05/20/2024 1:00 PM EST Procedure Only Urology [facility] [address] [place] [address] Chela Branch MD [address] [place] [address] 05/24/2024 2:20 PM EST Office Visit Nephrology, [facility] [address], [place] [address] Shar Avelar MD [address] [place] [address] [address] Health Maintenance Due Date Last Done Comments [...] Hepatitis B Vaccine Completed 01/08/2021, 08/08/2020, 07/11/2020 Hepatitis C Screening Completed 03/20/2023 , 03/21/2021, 02/16/2020, Additional history exists HPV (Gardasil) Vaccine Aged Out No lo [...] 6:48 PM 11/12/2019 2:18 PM This order reflects the patients wishes [...] Power of Attor iglesia? No Care Teams Staffing And Scheduling Coordinator Relationship Specialty Start Date End Date Mike Maki MD 200 [place] [address] PCP - General Internal Medicine 03/13/11 documented as of this encounter
--- OUTSIDE RECORDS SUMMARY | 2023-12-18 03:52 | External Medical Summary | Summary of Care ---
Author Name Unknown Organization [facility] Address [address] [place] [address] Phone [phone] Care Team Providers Care Sound Tester Name Role Phone Mike Maki MD Primary Care Provider + Reason for Visit * Reason Onset Date Comments Follow Up 12/16/2023 Advice 12/16/2023 Encounter Details Date Type Department Care Team (Late st Contact Info) Description 12/16/2023 Telephone NephKatherine silver [address] [place] [address] Shar Avelar MD [address] [facility] [place] [address] Follow Up; Advice Allergies Active Allergy Reactions [...] Oral Tablet (Lipitor)Indicatio ns:Coronary artery disease of [place] artery of [place] heart with stable angina pectoris (HCC) Take [...] artery disease of [place] artery of [place] heart with stable angina pectoris 10/31/2019 S/P [...] mRNA, LNP-s, No Pre serve, 2-Dose Series ([employer]) 09/19/2020,08/29/2020 Hepatitis B, 20+ yrs 01/08/2021,08/08/2020,07/1108/08/2020 PPD [...] Telephone Encounter - Marcie Leyva RN - 2023 9:28 AM EDT Te with pt's this morning. She states that Elkin had a procedure on his knee Thursday where it was injected by Dr Peoples. She states that he is more lethargic,decreased appetite and increased shortness of breath. He is also voiding more frequently. She is unsure if this is kidney related or if it may have to do with the knee injection. They are willing to [place] and aware appointment has been made for 1020 today. * Telephone Encounter - Avani Christianson OSA [...] [facility]. Pt [...] this line=== ----- Message ----- From: Whit Daugherty, RN Sent: 12/14/2023 2:39 PM EDT To: [...] Upcoming Encounters Date Type Department Care Team ([facility] st Contact Info) Description 2023 10:20 AM EDT Office Visit Nephrology [address] [place] [address] Shar Avelar MD [address] [place] [address] [address] 12/24/2023 10:10 AM EDT Anticoagulation Pharmacy, [facility] [address] [place] [address] Pharmacist1, [facility] [address] [place] [address] 12/24/2023 10:20 AM EDT Office Visit General Internal Medicine [facility] [address] [place] [address] [address] Mike Maki MD [address] [facility] [place] [address] 04/21/2024 11:00 AM EST Cardiac Studies Cardiac Studies, [facility] [address] [facility] [place] [address] 05/10/2024 11:30 AM EST Office Visit Cardiology, [facility] [place] [address] Prashant Stovall, [address] [facility] [address] 05/20/2024 1:00 PM EST Procedure Only Urology [address] [id number] Chela Branch MD [address] [place] [address] 05/24/2024 2:20 PM EST Office Visit Nephrology, [facility] [address] [facility] [place], [place] [address] Shar Avelar MD [address] [facility] [place] [address] Health Maintenance Due Date Last Done Comments [...] Power of Attor iglesia? No Care Teams Sound Tester Relationship Specialty Start Date End Date Mike Maki MD [address] [place] [address] PCP - General Internal Medicine 03/13/11 documented as of this encounter
--- OUTSIDE RECORDS SUMMARY | 2023-12-18 03:52 | External Medical Summary | Summary of Care ---
Author Name Unknown Organization [facility] Address [address] [place] [address] Phone [phone] Care Team Providers Care Caustic Cresylate Shift Superintendent Name Role Phone Mike Maki MD Primary Care Provider + Reason for Visit * Reason Comments Follow Up Left knee prp Encounter Details Date Type Department Care Team (Latest Contact Info) Description 12/15/2023 12:30 PM EDT Office Visit Orthopaedics [facility] [address] [facility] [place] [address] Gaurang Peoples, DO [address] [facility] [address] Primary osteoarthritis of left knee* Allergies Active Allergy Reactions Criticality Noted Date Comments Cephalexin 03/13/2011 Tamsulosin Hcl Unknown High 04/15/2011 Tongue swelling documented as of this encounter (statuses as of 12/15/2023) Medications Medication Sig Dispensed Refills Start Date [...] Oral Tablet (Lipitor)Indicatio ns:Coronary artery disease of [place] artery of [place] heart with stable angina pectoris (HCC) Take [...] as of this encounter (statuses as of 12/15/2023) Active Problems Problem Noted Date Diagnosed Date [...] artery disease of n ative artery of [place] heart with stable angina pectoris 10/31/2019 S/P [...] as of this encounter (statuses as of 12/15/2023) Resolved Problems Problem Noted Date Diagnosed Date Resolved Date Type 2 diabetes mellitus wit h diabetic chronic kidney disease 04/11/2020 02/20/2022 Closed fracture of one rib o f left side with routine healing 02/29/2020 02/29/2020 Pre-diabetes 01/05/2020 07/11/2020 Aortic stenosis, severe 11/10/201905/20 Acute blood loss anemia 11/10/2019 02/2 08/2020 Symptomatic anemia 11/10/2019 Elevated troponin 11/10/2019 [...] as of this encounter (statuses as of 12/15/2023) Immunizations Name Administration Dates Next Due COVID-19 [...] No 08/03/2023 Does the household have a [facility] source [facility] income? (Household - for ages [...] No 11/22/2019 documented as of this encounter Progress Notes * Gaurang Peoples DO - 12/15/2023 12:30 PM EDT INJECTION PRP NOTE Elkin Wagoner [id number] Elkin Wagoner is a 77 year old male who presents to [facility] for left PRP injection knee Prior to the PRP procedure it was verified that the patient has not taken any NSAIDS 2 weeks prior to the blood draw. After the injection they were informed to not take any NSAIDS 1 week after procedure and to not use ice. It is acceptable to use Tylenol (acetaminophen) sparingly. Please MyChart orcall back at 4, 8, and 12 weeks after the procedure. All questions were answered . ASSESSMENT AND PLAN Post procedural pain and expectations were reviewed. 1) Primary osteoarthritis of left knee (Primary) - POINT OF CARE US - PLATELET RICH PLASMA INJECTION Gaurang Peoples DO Primary Care Sports Medicine Orthopaedics [address] [address] This chart was completed in part utilizing [employer] Voice Recognition Software. Grammatical errors, random word insertions, pronoun errors, and incomplete sentences are an occasional consequence of this system due to software limitations, ambient noise, and hardware issues. Any formal questions or concerns about the content, text, or information contained within the body of this dictation should be directly addressed to the provider for clarificatio PROCEDURE NOTE: PRP/INJECTION Elkin Wagoner is a 77 year old male who presents to [facility]. Laterality: Left Site: Knee joint Prior to the PRP procedure it was verified that the patient has not taken any NSAIDs 2 weeks prior to the blood draw. After the injection they were informed to not take any NSAIDs 1 week after procedure and to not use ice. It is acceptable to use Tylenol (acetaminophen) sparingly. Please MyChart orcall back at 4, 8, and 12 weeks after the procedure. All questions were answered. Time out: Prior to injection, a time out was called to confirm the administration of appropriate medicine, patient name, procedure and confirm to the best of our ability and knowledge the presence of any necessary risks and benefits. Patient verbalized understanding. Ultrasound required due to high risk for complications without ultrasound guidance (risk for neurovascular damage) Ultrasound utilized to guide injection. During the procedure, the needle was visualized in plane and was advanced with continuous ultrasound guidance to the appropriate anatomical landmark as described in the procedure. Sterile technique applied using gloves, chlorhexadine, and alcohol swabs. Ethyl chloride spray for local anesthetic. After drawing 15 mL of blood from peripheral site, blood is prepared using PRP centrifuge. 7 mL buffy layer of platelet rich plasma product was then injected using 1.5 inch, 22 gauge needle at Knee joint at the superior lateral recess. Patient tolerated procedure with no significant bleeding or adverse reaction. Appropriate bandage applied. Patient instructed to call or return to clinic for fever, warmth, unusual redness at injection sitefor potential infection. Patient also advised regarding post-procedural pain. Gaurang Peoples DO Sports Medicine Primary Care Orthopaedics [address] [address] documented in this encounter Nursing Notes * Shirley Salas MED ASSIST - 12/15/2023 12:33 PM EDT Left knee PRP documented in this encounter Plan of Treatment Upcoming Encounters Date Type Department Care Team (Late st Contact Info) Description 12/24/2023 10:10 AM EDT Anticoagulation Pharmacy, [facility] [address] [place] [address] Pharmacist1, [facility] [address] [place] [address] 12/24/2023 10:20 AM EDT Office Visit General Internal Medicine [facility] [address] [place] [address] Mike Maki MD [address] [place] [address] 04/21/2024 11:00 AM EST Cardiac Studies [facility], [facility] [place] [address] 05/10/2024 11:30 AM EST Office Visit Cardiology, [facility] [address] [place] [address] Prashant Stovall, 132 [facility] [place] [address] 05/20/2024 1:00 PM EST Procedure Only Urology [facility] [address] [place] [address] hCela Branch MD [address] [place] [address] 05/24/2024 2:20 PM EST Office Visit Nephrology, [facility] 200 [facility] [place] [address] Shar Avelar MD 200 [facility] [place] [address] Health Maintenance Due Date Last Done Comments [...] Not on filedocumented as of this encounter Procedures Procedure Name Priority Date/Time Associated Diagnosis Comments POINT OF CARE US - PLATELET RICH PLASMA INJECTION Routine 12/15/2023 11:43 AM EDT Primary osteoarthritis of left knee documented in this encounter Results * POINT OF CARE US - PLATELET RICH PLASMA INJECTION (12/15/2023 11:43 AM EDT) Anatomical Region Laterality Modality Any Radiographic Iona ging 12/15/2023 11:4 3 AM EDT Narrative 12/15/2023 12:58 PM EDT Patient Name: ELKIN WAGONER : 1945 (77y) Male Performing Provider: Gaurang Peoples (digitally signed Dec 15, 2023 12:58 EDT) Attending: Gaurang Peoples (digitally signed Dec 15, 2023 12:58 EDT) [Impression] : PROCEDURE NOTE: PRP/INJECTION Elkin Wagoner is a 77 year old male who presents to [facility]. Laterality: Left Site: Knee joint Prior to the PRP procedure it was verified that the patient has not taken any NSAIDs 2 weeks prior to the blood draw. After the injection they were informed to not take any NSAIDs 1 week after procedure and to not use ice. It is acceptable to use Tylenol (acetaminophen) sparingly. Please MyChart or call back at 4, 8, and 12 weeks after the procedure. All questions were answered. Time out: Prior to injection, a time out was called to confirm the administration of appropriate medicine, patient name, procedure and confirm to the best of our ability and knowledge the presence of any necessary risks and benefits. Patient verbalized understanding. Ultrasound required due to high risk for complications without ultrasound guidance (risk for neurovascular damage) Ultrasound utilized to guide injection. During the procedure, the needle was visualized in plane and was advanced with continuous ultrasound guidance to the appropriate anatomical landmark as described in the procedure. Sterile technique applied using gloves, chlorhexadine, and alcohol swabs. Ethyl chloride spray for local anesthetic. After drawing 15 mL of blood from peripheral site, blood is prepared using PRP centrifuge. 7 mL buffy layer of platelet rich plasma product was then injected using 1.5 inch, 22 gauge needle at Knee joint at the superior lateral recess. Patient tolerated procedure with no significant bleeding or adverse reaction. Appropriate bandage applied. Patient instructed to call or return to clinic for fever, warmth, unusual redness at injection site for potential infection. Patient also advised regarding post-procedural pain. Gaurang Peoples DO Sports Medicine Primary Care Orthopaedics [address] [address] Procedure Note Gaurang Pepoles DO - 12/15/2023 Patient Name: ELKIN WAGONER : 1945 (77y) Male Performing Provider: Gaurang Peoples (digitally signed Dec 15, 2023 12:58EDT) Attending: Gaurang Peoples (digitally signed Dec 15, 2023 12:58 EDT) [Impression] : PROCEDURE NOTE: PRP/INJECTION Elkin Wagoner is a 77 year old male who presents to [facility]. Laterality: Left Site: Knee joint Prior to the PRP procedure it was verified that the patient has not takenany NSAIDs 2 weeks prior to the blood draw. After the injection they wereinformed to not take any NSAIDs 1 week after procedure and to not use ice.It is acceptable to use Tylenol (acetaminophen) sparingly. Please MyChartor call back at 4, 8, and 12 weeks after the procedure. All questions wereanswered. Time out: Prior to injection, a time out was called to confirm the administration ofappropriate medicine, patient name, procedure and confirm to the best ofour ability and knowledge the presence of any necessary risks andbenefits. Patient verbalized understanding. Ultrasound required due to high risk for complications without ultrasoundguidance (risk for neurovascular damage) Ultrasound utilized to guide injection. During the procedure, the needle was visualized in plane and was advancedwith continuous ultrasound guidance to the appropriate anatomical landmarkas described in the procedure. Sterile technique applied using gloves, chlorhexadine, and alcoholswabs. Ethyl chloride spray for local anesthetic. After drawing 15 mL of blood from peripheral site, blood is prepared usingPRP centrifuge. 7 mL buffy layer of platelet rich plasma product was theninjected using 1.5 inch, 22 gauge needle at Knee joint at the superiorlateral recess. Patient tolerated procedure with no significant bleeding or adversereaction. Appropriate bandage applied. Patient instructed to call or return to clinic for fever, warmth, unusualredness at injection site for potential infection. Patient also advisedregarding post- procedural pain. Gaurang Peoples DO Sports Medicine Primary Care Orthopaedics [address] [address] Gaurang Peoples DO RAD ULTRASOUND documented in this encounter Visit Diagnoses Diagnosis Primary osteoarthritis of left knee- Primary Primary localized osteoarthrosis, lower leg documented in this encounter Advance Directives * Full Code [...] Power of Attor iglesia? No Care Teams Caustic Cresylate Shift Superintendent Relationship Specialty Start Date End Date Mike Maki MD 200 [facility] [place] [address] PCP - General Internal Medicine 03/13/11 documented as of this encounter
--- OUTSIDE RECORDS SUMMARY | 2023-12-18 03:53 | External Medical Summary | Summary of Care ---
Author Name Unknown Organization [facility] Address [address] [place] [address] Phone [phone] Care Team Providers Care Facilities Officer Name Role Phone Mike Maki MD Primary Care Provider + Encounter Details Date Type Department Care Team (Late st Contact Info) Description 11/18/2023 Patient Reported Data Patient Survey Ortho [facility] Allergies Active Allergy Reactions Criticality Noted Date Comments Cephalexin 03/13/2011 Tamsulosin Hcl Unknown High 04/15/2011 Tongue swelling documented as of this encounter (statuses as of 11/18/2023) Medications Medication Sig Dispensed Refills Start Date [...] Oral Tablet (Lipitor)Indicatio ns:Coronary artery disease of [place] artery of [place] heart with stable angina pectoris (HCC) Take [...] as of this encounter (statuses as of 11/18/2023) Active Problems Problem Noted Date Diagnosed Date [...] artery disease of n ative artery of [place] heart with stable angina pectoris 10/31/2019 S/P [...] as of this encounter (statuses as of 11/18/2023) Resolved Problems Problem Noted Date Diagnosed Date Resolved Date Type 2 diabetes mellitus wit h diabetic chronic kidney disease 04/11/2020 02/20/2022 Closed fracture of one rib o f left side with routine healing 02/29/2020 02/29/2020 Pre-diabetes 01/05/2020 07/11/2020 Aortic stenosis, severe 11/10/201905/20 Acute blood loss anemia 11/10/201906/19 Symptomatic anemia 11/10/2019 Elevated troponin 11/10/2019 11/14/2019 [...] as of this encounter (statuses as of 11/18/2023) Immunizations Name Administration Dates Next Due COVID-19 [...] money to buy more. Never true 08/03/19 Within the past 12 months, t he [...] 18 years and over) Not on file 4 Are you (or your family) vernon eless [...] (15 years old or older) No 11/22/19 20 Cognitive Status Response Date of Assessm ent Because of a physical, menta l, or emotional condition, do you have serious difficulty concentrating, remembering, or making decisions? (5 years old or older) No 11/22/2019 documented as of this encounter Plan of Treatment Upcoming Encounters Date Type Department Care Team (Late st Contact Info) Description 11/25/2023 11:50 AM EDT Anticoagulation Pharmacy, [facility] [place] [address] [place] [address] Pharmacist1, [facility] [address] [facility] [address] [place] [address] 12/07/2023 1:15 PM EDT Office Visit Orthopaedics [facility] [address] [place] [address] Gaurang Peoples, DO [address] [facility] [place] [address] 12/24/2023 10:20 AM EDT Office Visit General Internal Medicine [facility] 200 [facility] [address] [address] Mike Maki MD 200 [facility] [address] [place] [address] 04/21/2024 11:00 AM EST Cardiac Studies Cardiac Studies, [facility] [address] [place] [address] 05/10/2024 11:30 AM EST Office Visit Cardiology, [facility] [address] [facility] [place] [address] Prashant Stovall, DO [address] [place] [address] 05/20/2024 1:00 PM EST Procedure Only Urology [facility] [address] [place] [address] Chela Branch MD [address] [place] [address] 05/24/2024 2:20 PM EST Office Visit Nephrology, [facility] [address] [place], [place] [address] Shar Avelar MD 200 [facility] [place] [address] Health Maintenance Due Date Last Done Comments [...] Power of Attor iglesia? No Care Teams Facilities Officer Relationship Specialty Start Date End Date Mike Maki MD [address] [place] [address] PCP - General Internal Medicine 03/13/11 documented as of this encounter
--- OUTSIDE RECORDS SUMMARY | 2023-12-18 03:53 | External Medical Summary | Summary of Care ---
Author Name Unknown Organization [facility] Address [address] [place] [address] Phone [phone] Care Team Providers Care Varnishing Unit Operator Name Role Phone Mike Maki MD Primary [...] Oral Tablet (Lipitor)Indicatio ns:Coronary artery disease of [place] artery of [place] heart with stable angina pectoris (HCC) Take [...] artery disease of n ative artery of [place] heart with stable angina pectoris 10/31/2019 S/P [...] 11:50 AM EDT Anticoagulation Pharmacy, [facility] [place] [address] [place] [address] Pharmacist1, [facility] [address] [facility] [place] [place] [address] 12/07/2023 1:15 PM EDT Office Visit Orthopaedics [facility] [address] [place] [address] Gaurang Peoples, DO [address] [facility] [place] [address] 12/24/2023 10:20 AM EDT Office Visit General Internal Medicine [facility] [address] [facility] [address] [address] Mike Maki MD 200 [facility] [place] [address] 04/21/2024 11:00 AM EST Cardiac Studies Cardiac Studies, [facility] [address] [place] [address] 05/10/2024 11:30 AM EST Office Visit Cardiology, [facility] [address] [facility] [place] [address] Prashant Stovall, DO [address] [place] [address] 05/20/2024 1:00 PM EST Procedure Only Urology [facility] [address] [place] [address] Chela Branch MD [address] [place] [address] 05/24/2024 2:20 PM EST Office Visit Nephrology, [facility] [address] [place], [place] [address] Shar Avelar MD 200 [facility] [place] [address] Health Maintenance Due Date Last Done Comments [...] Power of Attor iglesia? No Care Teams Varnishing Unit Operator Relationship Specialty Start Date End Date Mike Maki MD 200 [place] [address] PCP - General Internal Medicine 03/13/11 documented as of this encounter
--- OUTSIDE RECORDS SUMMARY | 2023-12-18 03:53 | External Medical Summary | Summary of Care ---
Author Name Unknown Organization [facility] Address [address] [place] [address] Phone [phone] Care Team Providers Care Clinical Operations Leader Name Role Phone Mike Maki MD Primary Care Provider + Reason for Visit * Reason Onset Date Comments Advice 12/04/2023 Appointment 12/04/2023 Encounter Details Date Type Department Care Team (Late st Contact Info) Description 12/04/2023 Telephone General Internal Medicine [facility] [address] [place] [address] Mike Maki MD [address] [place] [address] Advice; Appointment Allergies Active Allergy Reactions Criticality Noted Date Comments Cephalexin 03/13/2011 Tamsulosin Hcl Unknown High 04/15/2011 Tongue swelling documented as of this encounter (statuses as of 12/04/2023) Medications Medication Sig Dispensed Refills Start Date [...] Oral Tablet (Lipitor)Indicatio ns:Coronary artery disease of [place] artery of [place] heart with stable angina pectoris (HCC) Take [...] as of this encounter (statuses as of 12/04/2023) Active Problems Problem Noted Date Diagnosed Date [...] artery disease of n ative artery of [place] heart with stable angina pectoris 10/31/2019 S/P [...] as of this encounter (statuses as of 12/04/2023) Resolved Problems Problem Noted Date Diagnosed Date [...] as of this encounter (statuses as of 12/04/2023) Immunizations Name Administration Dates Next Due COVID-19 [...] encounter Miscellaneous Notes * Telephone Encounter - Rosette Mcnamara, MED ASSIST - 12/04/2023 4:51 PM EDT Spoke with patient. Last Thursday he got a cut. He placed a band aid on it. He ripped the bandaid off and the skin came off with it. He states that he has been trying to dress it but he keeps pulling more and more skin off. He states that he doesn't mean to be argumentative but there Urgent Cares have been closed for sometime by the looks of the signs on the doors. I then referred him to seek care at the ER which he declines because it will take all day. Patient states that he has been utilizing no stick pads, antibiotic ointment and wrap gauze, is still pulling skin off, blood runs down is arm and he wants care. When I inquired he was only looking for [facility] and didn't realize there is a [facility] in [place] as [facility]. I provided him with the address and hours of the [facility] and he states he will seek care there. * Telephone Encounter - Sis Ramírez OSA - 12/04/2023 4:01 PM EDT No Appointments Available Patient declined appointments?: No What Visit Type is needed? Acute If Acute Visit Type is needed, were surrounding clinics offered to patient (Yes/No)? Yes Was patient offered appointments with other available providers (Yes/No)? Yes See Call Details? (Yes or No): No L forearm wound. Patient would like a call back documented in this encounter Plan of Treatment Upcoming Encounters Date Type Department Care Team (Late st Contact Info) Description 12/07/2023 1:15 PM EDT Office Visit Orthopaedics [facility] [address] [place] [address] Gaurang Peoples, DO [address] [place] [address] 12/24/2023 10:10 AM EDT Anticoagulation Pharmacy, [facility] [place] [address] [place] [address] Pharmacist1, [facility] [address] [place] [address] 12/24/2023 10:20 AM EDT Office Visit General Internal Medicine [facility] [place] 200 [facility] [place] [address] Mike Maki MD 200 [facility] [place] [address] 04/21/2024 11:00 AM EST Cardiac Studies Cardiac Studies, [facility] [address] [place] [address] 05/10/2024 11:30 AM EST Office Visit Cardiology, [facility] [address] [facility] [place] [address] Prashant Stovall, DO [address] [place] [address] 05/20/2024 1:00 PM EST Procedure Only Urology [facility] [address] [place] [address] Chela Branch MD [address] [place] [address] 05/24/2024 2:20 PM EST Office Visit Nephrology, [facility] 200 [facility] [place], [place] [address] Shar Avelar MD 200 [facility] [place] [address] Health Maintenance Due Date Last Done Comments [...] Power of Attor iglesia? No Care Teams Clinical Operations Leader Relationship Specialty Start Date End Date Mike Maki MD 200 [place] [address] PCP - General Internal Medicine 03/13/11 documented as of this encounter
--- OUTSIDE RECORDS SUMMARY | 2023-12-18 03:53 | External Medical Summary | Summary of Care ---
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 10/31/2019 S/P [...] 11:50 AM EDT Anticoagulation Pharmacy, [facility] [place] [address] [place] [address] Pharmacist1, [facility] [address] [facility] [place], [place] [address] 12/07/2023 1:15 PM EDT Office Visit Orthopaedics [facility] [address] [place] [address] Gaurang Peoples, DO [address] [facility] [place] [address] 12/24/2023 10:20 AM EDT Office Visit General Internal Medicine [facility] [address] [facility] [address] [place] [address] Mike Maki MD 200 [facility] [place] [address] 04/21/2024 11:00 AM EST Cardiac Studies Cardiac Studies, [facility] [address] [place] [address] 05/10/2024 11:30 AM EST Office Visit Cardiology, [facility] [address] [facility] [place] [address] Prashant Stovall, DO [address] [place] [address] 05/20/2024 1:00 PM EST Procedure Only Urology [facility] [address] [place] [address] Chela Branch MD [address] [place] [address] 05/24/2024 2:20 PM EST Office Visit Nephrology, [facility] [address] [place], [place] [address] Shar Avelar MD 200 [facility] [place] [address] Health Maintenance Due Date Last Done Comments [...] Power of Attor iglesia? No Care Teams On Car Supervisor Relationship Specialty Start Date End Date Mike Maki MD 200 [place] [address] PCP - General Internal Medicine 03/13/11 documented as of this encounter
--- OUTSIDE RECORDS SUMMARY | 2023-12-18 03:53 | External Medical Summary | Continuity of Care Document ---
Author Name Unknown Organization [facility] [address] Address [address] [place], [place] [id number] Care Team Providers Care Wringer Operator Name Role Phone Mike Maki Primary Care Physician [phone] [id number]s): 12/10/23 - 12/10/23 [facility] [address], [address] [place] [address] [phone] Encounter Diagnosis End stage renal disease(Discharge Diagnosis) - 12/10/23 Discharge Disposition: Home or Self Care Attending Physician: KARYNA Lu Lynn Referring Physician: MD Avelar Roshan Allergies, Adverse Reactions, Alerts Substance Criticality Severity Reaction Reaction Severity Status cephalexin Facial swelling Act padma tamsulosin Facial swelling Act padma Assessment and Plan Extracted from: Title:Clinical Document Author:KARYNA Lu Lynn Date:12/10/23 [facility] OUTPATIENT NOTE Name: SHAYNE WAGONER Patient Number: [id number] : 1945 Date of Service: 12/10/2023 Chief Complaint: _Follow-up for left arm AV fistula creation HPI: _Mr. Wagoner is an elderly male who presents to Dr. [facility] today for 2-week follow-up visit after undergoing a left antecubital brachiocephalic AV fistula creation at [facility]. He denies any complaints or concerns related to his incision site, or his left hand or fingertips. Current Home Meds: (Last Updated 12/09 13:12) amLODIPine (amLODIPine 5 mg oral tablet) 5 mg PO Daily aspirin (aspirin 81 mg oral delayed release tablet) 81 mg PO Daily atorvastatin (atorvastatin 80 mg oral tablet) 80 mg PO Daily calcium acetate (calcium acetate 667 mg oral capsule) TAKE 1 CAPSULE BY MOUTH IN THE MORNING AT NOON AND IN THE EVENING. TAKE WITH MEALS. finasteride (finasteride 5 mg oral tablet) 5 mg PO Daily HAZARDOUS MEDICATION | tablet: green Women of childbearing age should not touch or handle broken tablets. Doris Alanis 10/18 14:46 multivitamin 1 tab PO Daily torsemide (torsemide 20 mg oral tablet) 20 mg PO Daily triamcinolone topical (triamcinolone 0.1% topical cream) warfarin (warfarin 5 mg oral tablet) [facility] Allergies and Sensitivities: tamsulosin(Facial swelling) cephalexin(Facial swelling) Past Medical History: Problems: End stage renal disease OBJECTIVE Vitals: Last Updated 12/10/23 13:13 Date Temp BP Location Pulse RR SpO2 Pain 12/10/23 130/62 Right Arm 89 18 98 12/10/23 0 10/19/23 134/66 Right Arm Vital Signs are the last 3 documented. No Orthostatic Data Available Height and Weight: Last Updated 10/19/23 14:50 Date BMI Wt(kg) Wt(lb) Method Ht(cm) (ft-in) Method 10/19/23 105.1 231 Standing Scale Heights and Weights are the last 3 documented. Physical Exam Constitutional: In general patient is an overweight but healthy-appearing well-nourished well-developed elderly male no distress. He is alert and oriented with any focal deficits. His left antecubital surgical incision is clean dry and intact. He has a palpable radial pulse and brisk capillary refill to his warm pink fingers. His brachiocephalic AV fistula demonstrates an excellent thrill and bruit throughout. ASSESSMENT: _ PLAN: _ 1 ) _end-stage renal disease Patient is not yet on hemodialysis and has no immediate plans to begin. He did have his fistula created in preparation for future hemodialysis needs. This appears to be maturing very well for 2-week follow-up. It is likely that this will be well matured and ready to use when he needs this. We would like to have him return here in another 6 weeks for reevaluation just to ensure that it is maturing on the expected timeline. If he should require his fistula for hemodialysis prior to then, his communications advisor can call our office and we will be happy to reevaluate earlier if necessary. Patient is agreeable to this plan. Thank you for letting us participate in the care of this patient. Medications amLODIPine 5 mg oral tablet Start: 7/25/24 1:11:00 PM EDT, 1 tab, PO, Daily Start Date: 12/10/23 Status: Ordered aspirin 81 mg oral delayed release tablet Start: 10/19/23 2:46:00 PM EDT, 1 tab, PO, Daily Start Date: 10/19/23 Status: Ordered atorvastatin 80 mg oral tablet Start: 10/19/23 2:46:00 PM EDT, 1 tab, PO, Daily Start Date: 10/19/23 Status: Ordered calcium acetate 667 mg oral capsule TAKE 1 CAPSULE BY MOUTH IN THE MORNING AT NOON AND IN THE EVENING. TAKE WITH MEALS. Start Date: 10/19/23 Status: Ordered finasteride 5 mg oral tablet Start: 10/19/23 2:46:00 PM EDT, 1 tab, PO, Daily Start Date: 10/19/23 Status: Ordered multivitamin Start: 10/19/23 2:47:00 PM EDT, 1 tab, PO, Daily Start Date: 10/19/23 Status: Ordered torsemide 20 mg oral tablet Start: 10/19/23 2:46:00 PM EDT, 1 tab, PO, Daily Start Date: 10/19/23 Status: Ordered triamcinolone 0.1% topical cream Start: 10/19/23 2:46:00 PM EDT Start Date: 10/19/23 Status: Ordered warfarin 5 mg oral tablet Start: 12/10/23 1:11:00 PM EDT, See [facility] Start Date: 12/10/23 Status: Ordered Mental Status 12/10/23 Barriers to Learning one year None evide nt Mandatory Health Literacy Documentation Yes Health Literacy Communication Barriers N ever Primary Language Kyrgyz Problem List Condition Confirmation Course Effective Dates Status Health St atus Informant End stage renal disease Confirmed Active Diagnosis Diagnosis Type Effective Dates Health Status Cl inical Service Informant End stage renal disease Discharge Diagnosis 12/10/23 Procedures Procedure Date Related Diagnosis Body Site Status Left AC cephalic AVF creation 11/24/23 Completed Vital Signs Most recent to oldest [Reference Range]: 1 Heart Rate 89 bpm (12/10/23 1:13 PM) Respiratory Rate 18 br/min (12/10/23 1:13 PM) Blood Pressure 130/62mmHg (12/10/23 1:13 PM) Cuff Pulse Pressure 68 mmHg (12/10/23 1:13 PM) BP Location # 1 Right Arm (12/10/23 1:13 PM) Social History Social History Type Response Smoking Status Former Smoker, quit > 1 yr Sex Male Sex Representation Male (finding) [facility] Outpt Note * KARYNA Lu Lynn: PERFORM Event Display: [facility] Outpt Note Authored Date: [id number] [facility] OUTPATIENT NOTE Name: SHAYNE WAGONER Patient Number: [id number] : 1945 Date of Service: 12/10/2023 Chief Complaint: _Follow-up for left arm AV fistula creation HPI: _Mr. Wagoner is an elderly male who presents to Dr[facility] today for2-week follow-up visit after undergoing a left antecubital brachiocephalic AV fistula creation at [facility]. He denies any complaints or concerns related to his incision site, or his left hand or fingertips. Current Home Meds: (Last Updated 12/09 13:12) amLODIPine (amLODIPine 5 mg oral tablet) 5 mg PO Daily aspirin (aspirin 81 mg oral delayed release tablet) 81 mg PO Daily atorvastatin (atorvastatin 80 mg oral tablet) 80 mg PO Daily calcium acetate (calcium acetate 667 mg oral capsule) TAKE 1 CAPSULE BY MOUTH IN THE MORNING AT NOON AND IN THE EVENING. TAKE WITH MEALS. finasteride (finasteride 5 mg oral tablet) 5 mg PO Daily HAZARDOUS MEDICATION | tablet: green Womenof childbearing age should not touch or handle broken tablets. Doris Alanis 10/18 14:46 multivitamin 1 tab PO Daily torsemide (torsemide 20 mg oral tablet) 20 mg PO Daily triamcinolone topical (triamcinolone 0.1% topical cream) warfarin (warfarin 5 mg oral tablet) [facility] Allergies and Sensitivities: tamsulosin(Facial swelling) cephalexin(Facial swelling) Past Medical History: Problems: End stage renal disease OBJECTIVE Vitals: Last Updated 12/10/23 13:13 Date Temp BP Location Pulse RR SpO2 Pain 12/10/23 130/62 Right Arm 89 18 98 12/10/23 0 10/19/23 134/66 Right Arm Vital Signs are the last 3 documented. No Orthostatic Data Available Height and Weight: Last Updated 10/19/23 14:50 Date BMI Wt(kg) Wt(lb) Method Ht(cm) (ft-in) Method 10/19/23 105.1 231 Standing Scale Heights and Weights are the last 3 documented. Physical Exam Constitutional: In general patient is an overweight but healthy-appearing well- nourished well-developed elderly male no distress. He is alert and oriented with any focal deficits. His left antecubital surgical incision is clean dry and intact. He has a palpable radial pulse and brisk capillary refill to his warm pink fingers. His brachiocephalic AV fistula demonstrates an excellent thrill and bruit throughout. ASSESSMENT: _ PLAN: _ 1 ) _end-stage renal disease Patient is not yet on hemodialysis and has no immediate plans to begin. He did have his fistula created in preparation for future hemodialysis needs. This appears to be maturing very well for 2-week follow-up. It is likely that this will be well matured and ready to use when he needs this. We wouldlike to have him return here in another 6 weeks for reevaluation just to ensure that it is maturingon the expected timeline. If he should require his fistula for hemodialysis prior to then, his communications advisor can call our office and we will be happy to reevaluate earlier if necessary. Patient is agreeable to this plan. Thank you for letting us participate in the care of this patient. Electronic Signature on File CC: Shar Avelar MD [address] [place] [id number] * CC: Mike Maki MD [address] [place] [phone] * Electronically Reviewed/Signed by: Leatha Lu PA-C Author Signature Dt/Tm:12/10/2023 01:26 PM [facility] [address], [address] [place] [address] LM Patient Care team information Care Team Personnel Name: MD Shanthi, Mike Giordano Position: Referring DIRECT Member Role: Primary Care Provider Address: [address] [place] [address] [place]"
--- OUTSIDE RECORDS SUMMARY | 2023-12-18 03:53 | External Medical Summary | Summary of Care ---
Author Name Unknown Organization [facility] Address [address] [place] [address] Phone [phone] Care Team Providers Care Manufacturing Director Name Role Phone Mike Maki MD Primary Care Provider + Reason for Visit * Reason Comments Follow Up L knee Encounter Details Date Type Department Care Team (Latest Contact Info) Description 12/07/2023 1:15 PM EDT Office Visit Orthopaedics [facility] [address] [facility] ([place], [place]) [place] [address] Gaurang Peoples, DO [address] [facility] [place] [address] Primary osteoarthritis of left knee* Allergies Active Allergy Reactions Criticality Noted Date Comments Cephalexin 03/13/2011 Tamsulosin Hcl Unknown High 04/15/2011 Tongue swelling documented as of this encounter (statuses as of 12/07/2023) Medications Medication Sig Dispensed Refills Start Date [...] Oral Tablet (Lipitor)Indicatio ns:Coronary artery disease of [place] artery of [place] heart with stable angina pectoris (HCC) Take [...] as of this encounter (statuses as of 12/07/2023) Active Problems Problem Noted Date Diagnosed Date [...] artery disease of n [place] artery of [place] heart with stable angina pectoris 10/31/2019 S/P [...] as of this encounter (statuses as of 12/07/2023) Resolved Problems Problem Noted Date Diagnosed Date Resolved Date Type 2 diabetes mellitus wit h diabetic chronic kidney disease 04/11/2020 02/20/2022 Closed fracture of one rib o f left side with routine healing 02/29/2020 02/29/2020 Pre-diabetes 01/05/2020 07/11/2020 Aortic stenosis, severe 11/10/2019/05/2023 Acute blood loss anemia 11/10/2019 02/2 08/2020 [...] as of this encounter (statuses as of 12/07/2023) Immunizations Name Administration Dates Next Due COVID-19 [...] No 08/03/2023 Does the household have a [facility] source [facility] income? (Household - for [...] of this encounter Progress Notes * Gaurang Peoples, DO - 12/07/2023 1:14 PM EDT Elkin Agudelo [id number] Elkin Agudelo is a 77 year old male who presents for consultation to [facility] for left knee injury/pain. Consult requested by Mike Maki MD. Elkin Agudelo is here with Last seen by me on 01/02/2020. He is unsure if intra-articular steroid injections were helpful. He does not fully remember Date of Injury: No injury he is very active HISTORY History - as above Modifying factors: activity exacerbates Associated symptoms: Swelling - negative , locking - negative, Knee giving way - positive rare Patient has tried ibuprofen and tylenol Physical Therapy: No Previous knee surgery: No REVIEW OF SYSTEMS Constitutional: No change in weight, No weakness, No fatigue, and No fevers, sweats, or chills Past Medical History: Diagnosis Date Acute blood loss anemia 11/10/2019 Aortic stenosis, severe Benign neoplasm of colon 05/31/2012 adenomatous polyp, rpt in 2 years. BPH (benign prostatic hypertrophy) with urinary obstruction 04/22/2011 CKD (chronic kidney disease), stage IV (HCC) Elevated troponin 11/10/2019 Gastric nodule 07/11/2020 H/O tobacco use, presenting hazards to health History of drainage of abscess 05/26/2018 Testes 2012 Hyperlipidemia 12/20/2013 Mass of skin of hand, left 05/26/2018 Pre-transplant evaluation for chronic kidney disease 06/29/2013 Pre-transplant evaluation for chronic kidney disease 06/29/2013 Presence of drug-eluting stent in left circumflex coronary artery 11/14/201910/2019 Renal cyst, right 07/30/2021 S/P orchiectomy left due to infection Shingles 2006 Type 2 diabetes mellitus with hemoglobin A1c goal of less than 7.5% ([facility]) 04/01/2020 Urine retention 04/2011 Patient Active Problem List Diagnosis Benign prostatic hyperplasia with urinary obstruction HTN, goal below 140/90 Hyperlipidemia LDL goal <70 Nonrheumatic aortic valve stenosis Hyperparathyroidism, secondary renal (HCC) Renal osteodystrophy Hypertensive kidney disease with chronic kidney disease stage V (HCC) Coronary artery disease of [place] artery of [place] heart with stable angina pectoris (HCC) S/P primary angioplasty with coronary stent Presence of drug-eluting stent in left circumflex coronary artery S/P TAVR (transcatheter aortic valve replacement) Type 2 diabetes mellitus with hemoglobin A1c goal of less than 7.5% (HCC) Gastric nodule Renal cyst, right 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) Aortic valve stenosis, etiology of cardiac valve disease unspecified Family History Problem Relation Name Age of Onset Cancer Father prostate Other (BPH) Father Cancer Mother breast, retina Diabetes Mother diet controlled No Known Problems Sister No Known Problems Sister No Known Problems Brother No Known Problems Brother No Past Hx Son No Past Hx Son No Past Hx Son Social History Socioeconomic History Marital status: Spouse name: Not on file Number of children: Not on file Years of education: Not on file Highest education level: Not on file Occupational History Occupation: retired Occupation: [employer] Tobacco Use Smoking status: Former Current packs/day: 0.00 Average packs/day: 0.5 packs/day for 37.0 years (18.5 ttl pk-yrs) Types: Cigarettes Start date: 07/07/1974 Quit date: 07/07/2011 Years since quittin.4 Smokeless tobacco: Never Tobacco comments: quit 7-8 years ago (09/27) Vaping Use Vaping status: Never Used Substance and Sexual Activity Alcohol use: No Drug use: No Sexual activity: Yes Partners: Female Comment: no history of STD;s Other Topics Concern Service Yes Comment: 20 years Blood Transfusions No Caffeine Concern Not Asked Occupational Exposure Not Asked Hobby Hazards Not Asked Sleep Concern Not Asked Stress Concern Not Asked Weight Concern Not Asked Special Diet Not Asked Back Care Not Asked Exercise Not Asked Bike Helmet Not Asked Seat Belt Not Asked Self-Exams Not Asked Social History Narrative Not on file Social Determinants of Health Financial Resource Strain: Low Risk (08/03/2023) Financial Resource Strain Do you have any trouble paying for your medications, or do you think you might in the future? (Adult - for ages 18 years and over): No Does your family have trouble paying for medicine? (Household - for ages 0-17 years): Not on file Food Insecurity: No Food Insecurity (08/03/2023) Food Insecurity Do you need food for this week? (Adult - for ages 18 years and over): No Are you able to get enough food for your family? (Household - for ages 0-17 years): Not on file Does your family need food this week? (Household - for ages 0-17 years): Not on file Do you always have enough food for your family? (Household - for ages 0-17 years): Not on file Transportation Needs: No Transportation Needs (08/03/2023) Transportation Needs Do you have trouble getting a ride to medical visits or work? (Adult - for ages 18 years and over):Never True Does your family have a hard time getting a ride to doctors visits? (Household - for ages 0-17 years): Not on file Has lack of transportation kept you from medical appointments, meetings, work, or from getting things needed for daily living? Check all that apply. (Adult - for ages 18 years and over): Not on file Do you (or your family) have trouble finding or paying for a ride (transportation)? (Household - for ages 0-17 years): Not on file Social Connections: Socially Integrated (08/03/2023) Social Connections How often do you feel lonely or isolated from those around you? (Adult - for ages 18 years and over): Never Housing Stability: Low Risk (08/03/2023) Housing Stability Do you currently live in a fdc or have no steady place to sleep at night? (Adult - for ages 18 years and over): No Do you think you are at risk of becoming homeless? (Adult - for ages 18 years and over): No Does your family worry about paying for your home or becoming homeless? (Household - for ages 0-17 years): Not on file Are you homeless or worried that you might be in the future? (Adult - for ages 18 years and over): Not on file Are you (or your family) homeless or worried that you might be in the future? (Household - for ages0-17 years): Not on file Current Outpatient Medications Medication Sig Dispense Refill Vit-Fe Fumarate-FA ( PLUS/IRON) 27-1 MG TABS Take 1 Tab by mouth daily. (Patient taking differently: Take 1 Tablet by mouth in the morning. Takes at night.) 90 Tab 1 Aspirin EC 81 MG Oral Tablet Delayed Release Take 1 Tablet by mouth at bedtime. 100 Tablet 3 Calcitriol 0.25 MCG Oral Capsule (Rocaltrol) TAKE 1 CAPSULE IN THE MORNING 90 Capsule 3 Atorvastatin Calcium 80 MG Oral Tablet (Lipitor) Take 1 Tablet by mouth at bedtime. 90 Tablet 3 amLODIPine Besylate 5 MG Oral Tablet (Norvasc) Take 1 Tablet by mouth at bedtime. 90 Tablet 3 Fluocinonide 0.05 % External Solution Apply topically to affected area daily. Apply to scalp daily until symptoms resolve. 60 mL 3 Torsemide 20 MG Oral Tablet (Demadex) Take 1 Tablet by mouth in the morning. (Patient taking differently: Take 1 Tablet by mouth in the morning. Takes at night.) 90 Tablet 3 Finasteride 5 MG Oral Tablet (Proscar) Take 1 Tablet by mouth in the morning. (Patient taking differently: Take 1 Tablet by mouth at bedtime. Takes at bedtime) 90 Tablet 3 Triamcinolone Acetonide 0.1 % External Cream (Aristocort) Apply topically to affected area 2 times a day. 80 g 3 Calcium Acetate (Phos Binder) 667 MG Oral Capsule (Phoslo) Take 1 Capsule by mouth in the morning and 1 Capsule at noon and 1 Capsule in the evening. Take with meals. 270 Capsule 3 Warfarin Sodium 5 MG Oral Tablet (Coumadin) Take 1 Tablet by mouth every evening. 90 Tablet 3 Ciprofloxacin HCl 500 MG Oral Tablet (Cipro) Take 1 Tablet by mouth in the morning. 7 Tablet 0 No current facility-administered medications for this visit. Facility-Administered Medications Ordered in Other Visits Medication Dose Route Frequency Provider Last Rate Last Admin glycopyrrolate (ROBINUL) inj Once PRN Manuel Cristobal CRNA 0.4 mg at 09/28/121744 neostigmine methylsulfate (PROSTIGMIN) 1 MG/ML inj Once PRN Manuel Cristobal CRNA 2 mg at 09/28/12 174 Lab Results Component Value Date/Time HEMOGLOBIN A1C - [facility] 5.5 03/20/2023 12:28 PM HEMOGLOBIN A1C - [facility] 5.7 (H) 11/15/2022 01:35 PM HEMOGLOBIN A1C - [facility] 6.1 (H) 03/20/2022 02:52 PM HEMOGLOBIN A1C - [facility] 6.5 (H) 03/30/2020 01:50 PM HEMOGLOBIN A1C - [facility] 6.4 (H) 02/16/2020 12:50 PM HEMOGLOBIN A1C - [facility] 5.8 (H) 11/28/2019 01:35 PM Former [employer] in [employer]. PHYSICAL EXAM General: in no acute distress Mood and Affect: normal Gait and Station: normal and moderately antalgic Peripheral pulses: normal in affected extremity (s) Skin examination: normal on affect extremity (s) Sensation: normal on affected extremity (s) KNEE EXAM Alignment: normal Bilateral Effusion: 1+ Left Palpation: tenderness to palpation at medial joint line on the left ROM R - Flexion - 120 degrees | Extension - 0 degrees L - Flexion - 120 degrees | Extension - 0 degrees R - Strength - Extension - 5/5 | Flexion - 5/5 L - Strength - Extension - 5/5 | Flexion - 5/5 Quadriceps tone is Fair Ligament Tests/Stability Grossly stable ACL, PCL, LCL, MCL Meniscus Tests Mckenzie - negative Left Popliteal mass - negative Bilateral Patellar Tests Solomon's negative Bilateral Grind negative Bilateral Radiology - I have personally reviewed the films done today and compared to 10/26/19: Left knee X-ray shows shows no fracture and mild to moderate medial knee arthritis, trace effusion Images shown to patient and ASSESSMENT AND PLAN Discussed today with the patient the risks and benefit of IA steroids, CASTILLO/ visco-supplemetnation injections, and PRP. Also offered ultrasound-guided procedure as well. After and informed discussion we elected to try PRP. Handout was given and provided and reviewed. We will overbook on 12/15/2023. 1) Primary osteoarthritis of left knee (Primary) Other orders - XR KNEE 3 VIEWS Check-out note: 12/14 at 1230 pm PRP 60 min left knee Gaurang Peoples, DO Primary Care [facility] [address] [facility] [address] This chart was completed in part utilizing [employer] Speech Voice Recognition Software. Grammatical errors, random word insertions, pronoun errors, and incomplete sentences are an occasional consequence of this system due to software limitations, ambient noise, and hardware issues. Any formal questions or concerns about the content, text, or information contained within the body of this dictation should be directly addressed to the provider for clarification. documented in this encounter Nursing Notes * Laura Baptiste LPN - 12/07/2023 12:51 PM EDT Follow up Patient Follow up: Knee Side: Left Date of last visit: 01/02/2020 Improvement since last office visit: 0 percent. Prior Treatment: steroid injection x 1, does not remember if it was helpful Here for Test Results: No Goals for this appointment: pain relief, discuss options. States is considering replacement. Pt concerned that his L knee pain is interfering with playing tennis documented in this encounter Plan of Treatment Upcoming Encounters Date Type Department Care Team (Late st Contact Info) Description 12/15/2023 12:30 PM EDT Office Visit Orthopaedics [facility] [address] [facility] [place] [address] Gaurang Peoples DO [address] [place] [address] 12/24/2023 10:10 AM EDT Anticoagulation Pharmacy, [facility] [address] [facility] [place] [address] Pharmacist1, [facility] [address] [facility] [place] [address] 12/24/2023 10:20 AM EDT Office Visit General Internal Medicine [facility] [address] [facility] [place] [address] Mike Maki MD [address] [facility] [place] [address] 04/21/2024 11:00 AM EST Cardiac Studies Cardiac Studies, [facility] [address] [facility] [place] [address] 05/10/2024 11:30 AM EST Office Visit Cardiology, [facility] [address] [facility] [place] [address] Prashant Stovall, DO [address] [place] [address] 05/20/2024 1:00 PM EST Procedure Only Urology [facility] [address] [place] [address] Chela Branch MD [address] [place] [address] 05/24/2024 2:20 PM EST Office Visit Nephrology, [facility] [address] [facility] [place] [address] Shar Avelar MD [address] [facility] [place] [address] Pending Results Name Type Priority Associated Diagnoses Date /Time XR KNEE 3 VIEWS Medical Imaging Routine 11/16 1:05 PM EDT Health Maintenance Due Date Last Done Comments [...] Not on filedocumented as of this encounter Visit Diagnoses Diagnosis Primary osteoarthritis [...] Power of Attor iglesia? No Care Teams Manufacturing Director Relationship Specialty Start Date End Date Mike Maki MD [address] [place] [address] PCP - General Internal Medicine 03/13/11 documented as of this encounter"
--- OUTSIDE RECORDS SUMMARY | 2023-12-18 03:53 | External Medical Summary | Summary of Care ---
Author Name Unknown Organization [facility] Address [address] [place] [address] Phone [phone] Care Team Providers Care Color Paste Mixing Supervisor Name Role Phone Mike Maki MD Primary Care Provider + Reason for Visit * Reason Onset Date Comments Test Results 11/18/2023 Encounter Details Date Type Department Care Team (Late st Contact Info) Description 11/18/2023 Telephone NephrologyKatherine 200 [facility] [address] Shar Avelar MD [address] [facility] [place] [address] Test Results Allergies Active Allergy Reactions Criticality Noted Date [...] Oral Tablet (Lipitor)Indicatio ns:Coronary artery disease of [place] artery of [place] heart with stable angina pectoris (HCC) Take [...] artery disease of n ative artery of [place] heart with stable angina pectoris 10/31/2019 S/P [...] Telephone Encounter - Marcie Leyva RN - 11/18/2023 3:36 PM EDT TE with pt. No uremic symptoms. Aware of current lab results. He is scheduled to have AVF formationnext week. * Telephone Encounter - Marcie Leyva RN - 11/18/2023 3:35 PM EDT ----- Message from Shar Avelar MD sent at 11/18/2023 2:59 PM EDT ----- Abnormal but stable kidney function with GFR less than 10. Phosphorus potassium and electrolytes are acceptable. Ask for uremic symptoms. Update regarding AV fistula. If everything is fine continue same documented in this encounter Plan of Treatment Upcoming Encounters Date Type Department Care Team (Late st Contact Info) Description 11/25/2023 11:50 AM EDT Anticoagulation Pharmacy, [facility] [address] [place] [address] [address] Pharmacist1, [facility] [address] [place] [address] 12/07/2023 1:15 PM EDT [facility] [address] [facility] [place] [address] Gaurang Peoples DO [address] [facility] [place] [address] 12/24/2023 10:20 AM EDT Office Visit General Internal Medicine [facility] [place] [address] [place] [address] Mike Maki MD [address] [place] [address] 04/21/2024 11:00 AM EST Cardiac Studies [facility], [facility] [place] [address] 05/10/2024 11:30 AM EST Office Visit Cardiology, [facility] 132 [facility] [place] [address] Prashant Stovall, [address] [place] [address] 05/20/2024 1:00 PM EST Procedure Only Urology [facility] [address] [place] [address] Chela Branch MD [address] [place] [address] 05/24/2024 2:20 PM EST Office Visit Nephrology, [facility] [address] [facility] [place] [address] Shar Avelar MD [address] [facility] [place] [address] Health Maintenance Due Date Last Done Comments [...] Power of Attor iglesia? No Care Teams Color Paste Mixing Supervisor Relationship Specialty Start Date End Date Mike Maki MD [address] [place] [address] PCP - General Internal Medicine 03/13/11 documented as of this encounter
--- OUTSIDE RECORDS SUMMARY | 2023-12-18 03:53 | External Medical Summary | Summary of Care ---
Author Name Unknown Organization [facility] Address [address] [place] [address] Phone [phone] Care Team Providers Care Senior Project Engineer Name Role Phone Mike Maki MD Primary Care Provider + Encounter Details Date Type Department Care Team (Late st Contact Info) Description 12/02/2023 Telephone Orthopaedics [facility] [address] [facility] [place] [address] Gaurang Peoples, [address] [facility] [place] [address] Allergies Active Allergy Reactions Criticality Noted Date Comments Cephalexin 03/13/2011 Tamsulosin Hcl Unknown High 04/15/2011 Tongue swelling documented as of this encounter (statuses as of 12/02/2023) Medications Medication Sig Dispensed Refills Start Date [...] Oral Tablet (Lipitor)Indicatio ns:Coronary artery disease of [place] artery of [place] heart with stable angina pectoris (HCC) Take [...] as of this encounter (statuses as of 12/02/2023) Active Problems Problem Noted Date Diagnosed Date [...] artery disease of n [place]ive artery of [place] heart with stable angina pectoris 10/31/2019 S/P [...] as of this encounter (statuses as of 12/02/2023) Resolved Problems Problem Noted Date Diagnosed Date [...] 10/11/2016 05/26/2018 Testicular abscess 01/01/2012 9 Overview: 2011 Kidney disease, chronic, sta ge IV (GFR 15-29 ml/min) 08/18/2011 06/01/2019 Hemorrhoids, external without complications 08/13/2011 05/26/2018 BPH without obstruction/lowe r urinary tract symptoms 04/03/2011 04/22/2011 HTN, goal below 140/90 03/13/201104/22 documented as of this encounter (statuses as of 12/02/2023) Immunizations Name Administration Dates Next Due COVID-19 [...] 08/03/2023 Does the household have a re gular source of income? (Household - for ages [...] encounter Miscellaneous Notes * Telephone Encounter - Shirley Salas MED ASSIST - 12/02/2023 1:10 PM EDT Called and spoke with patient, asking to be seen for left knee. Advised patient to come in early for xrays. * Telephone Encounter - Gaurang Peoples DO - 12/02/2023 11:28 AM EDT Please have schedulers changes appointment to 30 minutes. He was last seen for his knee on 01/02/2020. Additionally he needs to come in 30 minutes early for an x-ray. Shirley can you gather more information as well documented in this encounter Plan of Treatment Upcoming Encounters Date Type Department Care Team (Late st Contact Info) Description 12/07/2023 1:15 PM EDT [facility] [address] [place] [address] Gaurang Peoples DO [address] [place] [address] 12/24/2023 10:10 AM EDT Anticoagulation Pharmacy, [facility] [place] [address] [place] [address] Pharmacist1, [facility] [address] [place] [address] 12/24/2023 10:20 AM EDT Office Visit General Internal Medicine [facility] [place] [address] [place] [address] Mike Maki MD [address] [place] [address] 04/21/2024 11:00 AM EST Cardiac Studies [facility], [facility] [address] [place] [address] 05/10/2024 11:30 AM EST Office Visit Cardiology, [facility] [address] [place] [address] Prashant Stovall DO [address] [place] [address] 05/20/2024 1:00 PM EST Procedure Only Urology [facility] [address] [place] [address] Chela Branch MD [address] [place] [address] 05/24/2024 2:20 PM EST Office Visit Nephrology, [facility] 200 [place] [address] Shar Avelar MD 200 [place] [address] Health Maintenance Due Date Last Done Comments [...] Power of Attor iglesia? No Care Teams Senior Project Engineer Relationship Specialty Start Date End Date Mike Maki MD [address] [place] [address] PCP - General Internal Medicine 03/13/11 documented as of this encounter
--- OUTSIDE RECORDS SUMMARY | 2023-12-18 03:53 | External Medical Summary ---
Author Name Unknown Address Unknown Organization K09:[facility] [place] [address] Laboratory Report Ordering Provider Test Date Status KAREN LUTZ V 11/25/2023 11:42:26 Final Therapeutic ranges for non-o perative patients:
Prophylaxsis/treatment of DVT: (Range:2.0-3.0)
Treatment of pulmonary embolism:(Range:2.0-3.0)
Prevention of systemic embolism from:
-tissue heart valves
-acute myocardial infarction
-valvular heart disease
-atrial fibrillation
(Range: 2.0-3.0)
Mechanical prosthetic valves: (Range: 2.5-3.5) Observation Date Value Abnormality Reference (Units ) Status INR in Capillary blood by Coagulation assay 11/25/2023 11:42:26 2.3 (INR) Final Performing Location [facility] [place] [address]
--- OUTSIDE RECORDS SUMMARY | 2023-12-18 03:53 | External Medical Summary | Summary of Care ---
Author Name Unknown Organization [facility] Address [address] [place] [address] Phone [phone] Care Team Providers Care Solar System Installer Name Role Phone Mike Maki MD Primary Care Provider + Reason for Visit * Reason Comments Outpatient Testing Encounter Details Date Type Department Care Team (Late st Contact Info) Description 11/18/2023 12:40 PM EDT Laboratory Laboratory [facility] [place] [address] [place] [address] [place], Lab Scenery [address] [place] [address] CKD (chronic kidney disease) stage 5, GFR less than 15 ml/min ([facility]) Allergies Active Allergy Reactions Criticality Noted Date [...] Oral Tablet (Lipitor)Indicatio ns:Coronary artery disease of [place] artery of [place] heart with stable angina pectoris (HCC) Take [...] artery disease of n ative artery of conf[place] co[place] heart with stable angina pectoris 10/31/2019 S/P [...] No 08/03/2023 Does the household have a [facility] source of income? (Household - for [...] Description 11/25/2023 11:50 AM EDT Anticoagulation Pharmacy, [facility] [place] [address] [place] [address] Pharmacist1, [facility] [address] [facility] [place] [address] 12/07/2023 1:15 PM EDT Office Visit Orthopaedics [facility] [address] [place] [address] Gaurang Peoples, DO [address] [place] [address] 12/24/2023 10:20 AM EDT Office Visit General Internal Medicine [facility] [place] [address] [place] [address] Mike Maki MD 200 [facility] [address] [facility] [place] [address] 04/21/2024 11:00 AM EST Cardiac Studies Cardiac Studies, [facility] 132 [facility] [place] [address] 05/10/2024 11:30 AM EST Office Visit Cardiology, [facility] 132 [facility] [place] [address] Prashant Stovall, DO [address] [place] [address] 05/20/2024 1:00 PM EST Procedure Only Urology [facility] [address] [place] [address] Chela Branch MD [address] [place] [address] 05/24/2024 2:20 PM EST Office Visit Nephrology, [facility] [address] [place] [address] Shar Avelar MD [address] [place] [address] Pending Results Name Type Priority Associated Diagnoses Date /Time RENAL FUNCTION PANEL Lab Routine CKD (chronic kidney disease) stage 5, GFR less than 15 ml/min (HCC) 11/18/2023 12:45 PM EDT Health Maintenance Due Date Last [...] Procedure Name Priority Date/Time Associated Diagnosis Comments CBC Routine 11/18/2023 12:45 PM EDT CKD (chronic kidney disease) stage 5, GFR less than 15 ml/min (HCC) documented in this encounter Results * (ABNORMAL) CBC (11/18/2023 12:45 PM EDT) WBC 9.11 4.00 - 10.80 K/uL 11/18/2023 12:56 PM EDT [facility] 56- RBC 3.77 4.50 - 5.25 M/uL 11/18/2023 12:56 PM EDT [facility] 56 HGB 11.7(L) 14.0 - 16.8 g/dL 11/18/2023 12:56 PM EDT [facility] 56 HCT 38.7(L) 40.0 - 48.4 % 11/18/2023 12:56 PM EDT [facility] 56 MCV 102.7 82.0 - 99.5 fL 11/18/2023 12:56 PM EDT [address] MCH 31.0 27.0 - 34.0 pg 11/18/2023 12:56 PM EDT [facility] 56 MCHC 30.2 32.0 - 36.0 g/dL 11/18/2023 12:56 PM EDT [address] RDW 14.4 11.5 - 15.5 % 11/18/2023 12:56 PM EDT [facility] 56 PLT 218 140 - 400 K/uL 11/18/2023 12:56 PM EDT [facility] 56 MPV 9.8 6.6 - 11.1 fL 11/18/2023 12:56 PM EDT [facility] 56 Blood Venous blood specimen / Unknown Venipuncture / Unknown 11/18/2023 12:45 PM EDT 11/18/2023 12:45 PM EDT Shar Avelar MD LAB BLOOD ORDERABLES [address] [place] [address] documented in this encounter Visit Diagnoses Diagnosis CKD (chronic kidney disease) stage 5, GFR less than 15 ml/min (HCC) Chronic kidney disease, Stage V documented in this encounter Advance Directives * [...] Power of Attor iglesia? No Care Teams Solar System Installer Relationship Specialty Start Date End Date Mike Maki MD 200 [place] [address] PCP - General Internal Medicine 03/13/11 documented as of this encounter
--- OUTSIDE RECORDS SUMMARY | 2023-12-18 03:53 | External Medical Summary | Summary of Care ---
Author Name Unknown Organization [facility] Address [address] [place] [address] Phone [phone] Care Team Providers Care Train Brake Operator Name Role Phone Mike Maki MD Primary Care Provider + Reason for Visit * Reason Comments Dosage Adjustment In Person (Anticoag Cl inic) Encounter Details Date Type Department Care Team (Latest Contact Info) Description 11/25/2023 11:50 AM EDT Anticoagulation Pharmacy, [facility] 200 [facility] [place] [address] Pharmacist1, [facility] 200 [place] [address] Anticoagulation management encounter*; S/P TAVR (transcatheter aortic valve replacement); Aortic valve stenosis, etiology of cardiac valve disease unspecified Allergies Active Allergy Reactions Criticality Noted Date Comments Cephalexin 03/13/2011 Tamsulosin Hcl Unknown High 04/15/2011 Tongue swelling documented as of this encounter (statuses as of 11/25/2023) Medications Medication Sig Dispensed Refills Start Date [...] Oral Tablet (Lipitor)Indicatio ns: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) Take [...] as of this encounter (statuses as of 11/25/2023) Active Problems Problem Noted Date Diagnosed Date [...] artery disease of n ative artery of marshall heart with stable angina pectoris 10/31/2019 S/P [...] as of this encounter (statuses as of 11/25/2023) Resolved Problems Problem Noted Date Diagnosed Date Resolved Date Type 2 diabetes mellitus wit h diabetic chronic kidney disease 04/11/2020 02/20/2022 Closed fracture of one rib o f left side with routine healing 02/29/2020 02/29/2020 Pre-diabetes 01/05/2020 07/11/2020 Aortic stenosis, severe 11/10/2019/05/2023 Acute blood loss anemia 11/10/2019/08/2020 Symptomatic anemia 11/10/2019 Elevated troponin 11/10/2019 11/14/2019 [...] as of this encounter (statuses as of 11/25/2023) Immunizations Name Administration Dates Next Due COVID-19 mRNA, LNP-s, No Pre serve, 2-Dose Series (2d2c) 09/19/2020,08/29/2020 Hepatitis B, 20+ yrs 01/08/2021,08/08/2020,07/1108/08/2020 PPD [...] No 08/03/2023 Does the household have a [facility] source of income? (Household - for [...] as of this encounter Progress Notes * Benny Lora RPh - 11/25/2023 11:39 AM EDT Medication Therapy Disease Management - Anticoagulation Elkin Agudelo 1945 Current Warfarin Dose As of 11/25/2023 Warfarin maintenance plan: 5 mg (5 mg x 1) every day Patient Findings Negatives: Signs/symptoms of thrombosis, Signs/symptoms of bleeding, Change in health, Change in alcohol use, Change in activity, Upcoming invasive procedure, Missed doses, Extra doses, Change in medications, Change in diet/appetite, Bruising INR Result As of 11/25/2023 INR goal: 2.0-3.0 INR used for dosin.3 (11/25/2023) Warfarin Plan As of 11/25/2023 Full warfarin instructions: 5 mg every day No change documented: Benny Lora RPh Next INR check: 12/24/2023 Repeat PT/INR in 4 week(s) Weekly dose: not changed Benny De Santiago RPh, BEKAH, CDE Clinical Pharmacist Medication Therapy Management [facility] 11/25/2023 11:47 AM documented in this encounter Plan of Treatment Upcoming Encounters Date Type Department Care Team (Late st Contact Info) Description 12/07/2023 1:15 PM EDT Office Visit Orthopaedics [facility] [address] [place] [address] Gaurang Peoples, [address] [place] [address] 12/24/2023 10:10 AM EDT Anticoagulation Pharmacy, [facility] [place] [address] [place] [address] Pharmacist1, [facility] [address] [facility] [place] [address] 12/24/2023 10:20 AM EDT Office Visit General Internal Medicine [facility] 200 [facility] [place], [place] [address] Mike Maki MD 200 [facility] [place], [place] [address] 04/21/2024 11:00 AM EST Cardiac Studies Cardiac Studies, [facility] 132 [place] [address] 05/10/2024 11:30 AM EST Office Visit Cardiology, [facility] 132 [place] [address] Prashant Stovall, 132 [facility] [place] [address] 05/20/2024 1:00 PM EST Procedure Only Urology [facility] [address] [place] [address] Chela Branch MD [address] [place] [address] 05/24/2024 2:20 PM EST Office Visit Nephrology, [facility] 200 [facility] [address] [place], [place] [address] Shar Avelar MD 200 [facility] [place] [address] Health Maintenance Due Date Last Done Comments [...] Procedure Name Priority Date/Time Associated Diagnosis Comments INR FINGERSTICK, POINT OF CARE STAT 11/25/2023 11:42 AM EDT S/P TAVR (transcatheter aortic valve replacement) Aortic valve stenosis, etiology of cardiac valve disease unspecified Anticoagulation management encounter documented in this encounter Results * INR FINGERSTICK, POINT OF CARE (11/25/2023 11:42 AM EDT) Fingerstick INR 2.3 INR 11:46 AM EDT [facility] 56-02 Blood 11/25/2023 11:4 2 AM EDT 11/25/2023 11:46 AM EDT Narrative [facility] 56-02 - 11/25/2023 11:46 AM EDT Therapeutic ranges for non-operative patients: Prophylaxsis/treatment of DVT: (Range:2.0-3.0) Treatment of pulmonary embolism:(Range:2.0-3.0) Prevention of systemic embolism from: -tissue heart valves -acute myocardial infarction -valvular heart disease -atrial fibrillation (Range: 2.0-3.0) Mechanical prosthetic valves: (Range: 2.5-3.5) Benny De Santiago V, [facility] LAB POINT OF CARE TE ST DOCKED DEVICE UNSOLICITED RESULTS [facility] 56-02 [address] [place] [address] documented in this encounter Visit Diagnoses Diagnosis Anticoagulation management encounter- Primary Encounter for therapeutic drug monitoring S/P TAVR (transcatheter aortic valve replacement) Heart valve replaced by other means Aortic valve stenosis, etiology of cardiac valve disease unspecified documented in this encounter Advance Directives * [...] Power of Attor iglesia? No Care Teams Train Brake Operator Relationship Specialty Start Date End Date Miek Maki MD 200 [facility] [address] PCP - General Internal Medicine 03/13/11 documented as of this encounter
--- OUTSIDE RECORDS SUMMARY | 2023-12-18 03:53 | External Medical Summary | Summary of Care ---
Author Name Unknown Organization [facility] Address [address] [place] [address] Phone [phone] Care Team Providers Care Power Brake Operator Name Role Phone Mike Maki [...] Oral Tablet (Lipitor)Indicatio ns:Coronary artery disease of southern [place] artery of [place] heart with stable angina pectoris (HCC) Take [...] artery disease of n ative artery of southern [place] heart with stable angina pectoris 10/31/2019 S/P [...] 11:50 AM EDT Anticoagulation Pharmacy, [facility] [place] [address] [place] [address] Pharmacist1, [facility] 200 [facility] [place], [place] [address] 12/07/2023 1:15 PM EDT Office Visit Orthopaedics [facility] [address] [place] [address] Gaurang Peoples, DO [address] [facility] [place] [address] 12/24/2023 10:20 AM EDT Office Visit General Internal Medicine [facility] 200 [facility] [address] [place] [address] Mike Maki MD 200 [facility] [place] [address] 04/21/2024 11:00 AM EST Cardiac Studies Cardiac Studies, [facility] [address] [place] [address] 05/10/2024 11:30 AM EST Office Visit Cardiology, [facility] 132 [address] [facility] [place] [address] Prashant Stovall, DO [address] [place] [address] 05/20/2024 1:00 PM EST Procedure Only Urology [facility] [address] [place] [address] Chela Branch MD [address] [place] [address] 05/24/2024 2:20 PM EST Office Visit Nephrology, [facility] [address] [place], [place] [address] Shar Avelar MD 200 [facility] [place] [address] Health Maintenance Due Date Last Done Comments [...] Power of Attor iglesia? No Care Teams Power Brake Operator Relationship Specialty Start Date End Date Mike Maki MD 200 [facility] [place] [facility] [address] PCP - General Internal Medicine 03/13/11 documented as of this encounter
--- OUTSIDE RECORDS SUMMARY | 2023-12-18 03:54 | External Medical Summary | Summary of Care ---
Author Name Unknown Organization [facility] Address [address] [place] [address] Phone [phone] Care Team Providers Care Block Captain Name Role Phone Mike Maki MD Primary Care Provider + Reason for Visit * Reason Onset Date Comments Advice 11/09/2023 Encounter Details Date Type Department Care Team (Late st Contact Info) Description 11/09/2023 Telephone Urology, [place] [address] [place] [address] Trinity Cantu PA-C [address] [place] [address] Advice Allergies Active Allergy Reactions Criticality Noted Date Comments Cephalexin 03/13/2011 Tamsulosin Hcl Unknown High 04/15/2011 Tongue swelling documented as of this encounter (statuses as of 11/09/2023) Medications Medication Sig Dispensed Refills Start Date [...] Oral Tablet (Lipitor)Indicatio ns:Coronary artery disease of augustine artery of 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 I will adjust his dose then if necessary. Benny De Santiago RPh, [facility] Clinical Pharmacist Medication Therapy Management Clinic 11/09/2023, 9:49 AM * Telephone Encounter - Trinity Cantu PA-C - 11/09/2023 9:36 AM EDT Attempted to call patient 49:38 AM left message on voicemail, sent script for his urine culture to his pharmacy for ciprofloxacin. His warfarin will need to be adjusted will send message to his coumadin clinic. Trinity Cantu PA-C 11/09/2023 9:39 AM documented in this encounter Plan of Treatment Upcoming Encounters Date Type Department Care Team (Late st Contact Info) Description 11/10/2023 1:40 PM EDT Anticoagulation Pharmacy, [facility] [address] [place] [address] Pharmacist1, [facility] [address] [facility] [place] [address] 11/18/2023 12:10 PM EDT Office Visit Vascular Surgery, [facility] 132 [facility] [place] [address] Jones Kaur MD [address] [facility] [place] [address] 12/24/2023 10:20 AM EDT Office Visit General Internal Medicine [facility] [address] [place] [address] Mike Maki MD 200 [facility] [place] [address] 04/21/2024 11:00 AM EST Cardiac Studies Cardiac Studies, [facility] [place] [address] 05/10/2024 11:30 AM EST Office Visit Cardiology, [facility] 132 [facility] [place] [address] Prashant Stovall, 132 [facility] [place] [address] 05/20/2024 1:00 PM EST Procedure Only Urology [facility] [address] [place] [address] Chela Branch MD [address] [place] [address] 05/24/2024 2:20 PM EST Office Visit Nephrology, [facility] 200 [facility] [place] [address] Shar Avelar MD 200 [facility] [place] [place] [address] Health Maintenance Due Date Last Done Comments COVID-19 Vaccine ( season) 2023 09/19/2020, 08/29/2020 HbA1c 09/18/2023 03/20/2023, 07/0 05/2022, 03/20/2022, Additional history exists Influenza Vaccine (FLU shot) (Season Ended) 2024 Diabetic Eye Exam 03/31/2024 03/31/2023, , 07/29/2021, Additional history exists Diabetic Foot Exam 06/17/2024 06/17/2023, 1 , 01/17/2021, Additional history exists Depression Screening 08/02/2024 08/03/2023 DTaP,Tdap,and Td Vaccines (2 - Td or Tdap) 09/29/2024 09/29/2014 Pneumococcal Vaccine: 65+ Years Completed 06/22/2014, 05/03/2012 Zoster Vaccines Completed 12/15/2018, 06/19, 12/07/2012 Hepatitis B Completed 01/08/2021, 07/17, 07/11/2020 GARDASIL-HPV IMMUNIZATION SERIES Aged Out No longer eligible based on [...] Power of Attor iglesia? No Care Teams Block Captain Relationship Specialty Start Date End Date Mike Maki MD 200 [place] [address] PCP - General Internal Medicine 03/13/11 documented as of this encounter
--- OUTSIDE RECORDS SUMMARY | 2023-12-18 03:54 | External Medical Summary ---
Author Name Unknown Address Unknown Organization K[facility] [address] [place] [address] Laboratory Report Ordering Provider Test Date Status KAREN LUTZ V 11/10/2023 13:40:42 Final Therapeutic ranges for non-o perative patients:
Prophylaxsis/treatment of DVT: (Range:2.0-3.0)
Treatment of pulmonary embolism:(Range:2.0-3.0)
Prevention of systemic embolism from:
-tissue heart valves
-acute myocardial infarction
-valvular heart disease
-atrial fibrillation
(Range: 2.0-3.0)
Mechanical prosthetic valves: (Range: 2.5-3.5) Observation Date Value Abnormality Reference (Units ) Status INR in Capillary blood by Coagulation assay 11/10/2023 13:40:42 2.2 (INR) Final Performing Location [facility] [place] [address]
--- OUTSIDE RECORDS SUMMARY | 2023-12-18 03:54 | External Medical Summary ---
Author Name Unknown Address Unknown Organization [facility] [place] [address] Laboratory Report Ordering Provider Test Date Status CHER CARCAMO 11/18/2023 12:45:40 Final Observation Date Value Abnormality Reference (Units ) Status WBC, Total 11/18/2023 12:45:40 9.11 4.00-10.8 0 (K/uL) Final RBC 11/18/2023 12:45:40 3.77 4.50-5.25 (M/uL) Final Hemoglobin 11/18/2023 12:45:40 11.7 Below low normal 14 .0-16.8 (g/dL) Final HCT 11/18/2023 12:45:40 38.7 Below low normal 40. 0-48.4 (%) Final MCV 11/18/2023 12:45:40 102.7 82.0-99.5 (fL) Final MCH 11/18/2023 12:45:40 31.0 27.0-34.0 (pg) Final MCHC 11/18/2023 12:45:40 30.2 32.0-36.0 (g/dL) Final RDW 11/18/2023 12:45:40 14.4 11.5-15.5 (%) Final Platelets 11/18/2023 12:45:40 218 140-400 (K /uL) Final MPV 11/18/2023 12:45:40 9.8 6.6-11.1 ( fL) Final Performing Location [facility] [place] [address]
--- OUTSIDE RECORDS SUMMARY | 2023-12-18 03:54 | External Medical Summary | Summary of Care ---
Author Name Unknown Organization [facility] Address [address] [place] [address] Phone [phone] Care Team Providers Care Concrete Pump Operator Name Role Phone Mike Maki MD Primary Care Provider + Reason for Visit * Reason Onset Date Comments Medication Question 11/10/2023 Encounter Details Date Type Department Care Team (Late st Contact Info) Description 11/10/2023 Telephone [facility] 200 [facility] [place] [address] Shar Avelar MD 200 [facility] [place] [address] Medication Question Allergies Active Allergy Reactions Criticality Noted Date Comments Cephalexin 03/13/2011 Tamsulosin Hcl Unknown High 04/15/2011 Tongue swelling documented as of this encounter (statuses as of 11/16/2023) Medications Medication Sig Dispensed Refills Start Date [...] Oral Tablet (Lipitor)Indicatio ns:Coronary artery disease of [place] artery of [place] heart with stable angina pectoris (HCC) Take [...] as of this encounter (statuses as of 11/16/2023) Active Problems Problem Noted Date Diagnosed Date [...] artery disease of n ative artery of [place] heart with stable angina pectoris 10/31/2019 S/P [...] as of this encounter (statuses as of 11/16/2023) Resolved Problems Problem Noted Date Diagnosed Date [...] as of this encounter (statuses as of 11/16/2023) Immunizations Name Administration Dates Next Due COVID-19 [...] encounter Miscellaneous Notes * Telephone Encounter - Ary Edgar LPN - 11/16/2023 3:49 PM EDT MyG message sent Noted Pt will not be taking Cipro at this time Please see MyG message * Telephone Encounter - Marcie Leyva RN - 11/10/2023 11:10 AM EDT Pt was seen by urology for ongoing pseudomonas UTI. Following culture, was prescribed Cipro. He hasnot yet started it as he read that this can be harmful to kidneys. 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 Please advise. documented in this encounter Plan of Treatment Upcoming Encounters Date Type Department Care Team (Late st Contact Info) Description 11/25/2023 11:50 AM EDT Anticoagulation Pharmacy, [facility] 200 [facility] [place] [address] Pharmacist1, [facility] 200 [facility] [place] [address] 12/24/2023 10:20 AM EDT Office Visit General Internal Medicine [facility] 200 [facility] [place] [address] Mike Maki MD 200 [facility] [place] [address] 04/21/2024 11:00 AM EST Cardiac Studies Cardiac Studies, [facility] 132 [facility] [place] [address] 05/10/2024 11:30 AM EST Office Visit Cardiology, [facility] [place] [address] Prashant Stovall, [address] [place] [address] 05/20/2024 1:00 PM EST Procedure Only Urology [facility] [address] [place] [address] Chela Branch MD [address] [place] [address] 05/24/2024 2:20 PM EST Office Visit Nephrology, [facility] 200 [place] [address] Shar Avelar MD 200 [place] [address] Health Maintenance Due Date Last Done Comments [...] Power of Attor iglesia? No Care Teams Concrete Pump Operator Relationship Specialty Start Date End Date Mike Maki MD [address] [place] [address] PCP - General Internal Medicine 03/13/11 documented as of this encounter
--- OUTSIDE RECORDS SUMMARY | 2023-12-18 03:54 | External Medical Summary ---
Author Name Unknown Address Unknown Organization [facility] [address] Laboratory Report Ordering Provider Test Date Status CHER CARCAMO 11/18/2023 12:45:40 Final Observation Date Value Abnormality Reference (Units ) Status BUN 11/18/2023 12:45:40 73 Above high normal 6-20 (mg/dL) Final Creatinine 11/18/2023 12:45:40 6.2 Above high normal 0.6-1.2 (mg/dL) Final Glomerular filtration rate/1.73 sq M.predicted [Volume Rate/Area] in Serum, Plasma or Blood by Creatinine-based formula (CKD-EPI) 11/18/2023 12:45:40 9 Below low normal >=60 (mL/min) Final eGFR is calculated based on the CKD-EPI 2020 equation Sodium 11/18/2023 12:45:40 141 135-146 (m mol/L) Final Potassium 11/18/2023 12:45:40 5.1 3.5-5.1 (m mol/L) Final Cl 11/18/2023 12:45:40 105 98-107 (mm ol/L) Final CO2 11/18/2023 12:45:40 22 22-32 (mmo l/L) Final Anion gap 11/18/2023 12:45:40 14 7-15 (mmol /L) Final Glucose 11/18/2023 12:45:40 167 Above high normal 70 -120 (mg/dL) Final Calcium 11/18/2023 12:45:40 9.8 8.4-10.2 ( mg/dL) Final Albumin 11/18/2023 12:45:40 4.2 3.8-5.0 (g /dL) Final Phosphate 11/18/2023 12:45:40 5.2 Above high normal 2. 5-4.8 (mg/dL) Final Performing Location [facility] [address]
--- OUTSIDE RECORDS SUMMARY | 2023-12-18 03:54 | External Medical Summary | Summary of Care ---
Author Name Unknown Organization [facility] Address [address] [place] [address] Phone [phone] Care Team Providers Care Flooring Machine Operator Name Role Phone Mike Maki MD Primary Care Provider + Reason for Visit * Reason Onset Date Comments Medication Question 11/10/2023 Encounter Details Date Type Department Care Team (Late st Contact Info) Description 11/10/2023 Telephone NephrologyKatherine 200 [place] [address] Shar Avelar MD 200 [place] [address] Medication Question Allergies Active Allergy Reactions Criticality Noted Date Comments Cephalexin 03/13/2011 Tamsulosin Hcl Unknown High 04/15/2011 Tongue swelling documented as of this encounter (statuses as of 11/10/2023) Medications Medication Sig Dispensed Refills Start Date [...] Oral Tablet (Lipitor)Indicatio ns: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) Take [...] as of this encounter (statuses as of 11/10/2023) Active Problems Problem Noted Date Diagnosed Date [...] 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 10/31/2019 S/P [...] as of this encounter (statuses as of 11/10/2023) Resolved Problems Problem Noted Date Diagnosed Date [...] as of this encounter (statuses as of 11/10/2023) Immunizations Name Administration Dates Next Due COVID-19 [...] Description 11/10/2023 1:40 PM EDT Anticoagulation Pharmacy, [facility] 200 [place] [address] Pharmacist1, [facility] 200 [facility] [place] [address] 12/24/2023 10:20 AM EDT Office Visit General Internal Medicine [facility] 200 [facility] [place] [address] Mike Maki MD 200 [place] [address] 04/21/2024 11:00 AM EST Cardiac Studies Cardiac Studies, [facility] 132 [facility] [place] [address] 05/10/2024 11:30 AM EST Office Visit Cardiology, [facility] 132 [facility] [place] [address] Prashant Stovall DO 132 [facility] [place] [address] 05/20/2024 1:00 PM EST Procedure Only Urology [facility] 549 [place] [address] Chela Branch MD [address] [place] [address] 05/24/2024 2:20 PM EST Office Visit Nephrology, Katherine Cota [address] [place] [address] Shar Avelar MD [address] [place] [address] Health Maintenance Due Date Last Done Comments [...] Power of Attor iglesia? No Care Teams Flooring Machine Operator Relationship Specialty Start Date End Date Mike Maki MD 200 [place] [address] PCP - General Internal Medicine 03/13/11 documented as of this encounter
--- OUTSIDE RECORDS SUMMARY | 2023-12-18 03:54 | External Medical Summary | Summary of Care ---
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) Take [...] artery disease of n ative artery of kaw heart with stable angina pectoris 10/31/2019 S/P [...] 11:50 AM EDT Anticoagulation Pharmacy, Katherine Cota [place] [address] [place] [address] Pharmacist1, [facility] 200 [facility] [place] [address] 12/07/2023 1:15 PM EDT Office Visit Orthopaedics [facility] [address] [place] [address] Gaurang Peoples, DO [address] [facility] [place] [address] 12/24/2023 10:20 AM EDT Office Visit General Internal Medicine [facility] 200 [facility] [place] [place] [address] Mike Maki MD 200 [facility] [place] [address] 04/21/2024 11:00 AM EST Cardiac Studies Cardiac Studies, [facility] [address] [place] [address] 05/10/2024 11:30 AM EST Office Visit Cardiology, [facility] 132 [address] [facility] [place] [address] Prashant Stovall, DO [address] [place] [address] 05/20/2024 1:00 PM EST Procedure Only Urology [facility] 549 [place] [address] Chela Branch MD 549 [place] [address] 05/24/2024 2:20 PM EST Office Visit Nephrology, [facility] [address] [place], [place] [address] Shar Avelar MD 200 [facility] [place] [address] Health Maintenance Due Date Last Done Comments [...] Power of Attor iglesia? No Care Teams Supervisor Tank House Relationship Specialty Start Date End Date Mike Maki MD 200 [facility] [place] [address] PCP - General Internal Medicine 03/13/11 documented as of this encounter
--- OUTSIDE RECORDS SUMMARY | 2023-12-18 03:54 | External Medical Summary | Summary of Care ---
Author Name Unknown Organization [facility] Address [address] [place] [address] Phone [phone] Care Team Providers Care Sewer Builder Name Role Phone Mike Maki MD Primary [...] (Lipitor)Indicatio ns:Coronary artery disease of [place] artery of [place] heart with stable angina pectoris (HCC) Take [...] of n ative artery of [place] heart with stable angina pectoris 10/31/2019 S/P [...] 11:50 AM EDT Anticoagulation Pharmacy, Katherine Cota [place] [address] [place] [address] Pharmacist1, [facility] 200 [facility] [place], [place] [address] 12/07/2023 1:15 PM EDT Office Visit Orthopaedics [facility] [address] [place] [address] Gaurang Peoples, DO [address] [facility] [place] [address] 12/24/2023 10:20 AM EDT Office Visit General Internal Medicine [facility] 200 [facility] [place] [place] [address] Mike Maki MD 200 [facility] [place] [address] 04/21/2024 11:00 AM EST Cardiac Studies Cardiac Studies, [facility] [address] [place] [address] 05/10/2024 11:30 AM EST Office Visit Cardiology, [facility] 132 [address] [facility] [place] [address] Prashant Stovall, DO [address] [place] [address] 05/20/2024 1:00 PM EST Procedure Only Urology [facility] 549 [place] [address] Chela Branch MD 549 [place] [address] 05/24/2024 2:20 PM EST Office Visit Nephrology, [facility] [address] [place], [place] [address] Shar Avelar MD 200 [facility] [place] [address] Health Maintenance Due Date Last Done Comments [...] Power of Attor iglesia? No Care Teams Sewer Builder Relationship Specialty Start Date End Date Mike Maki MD 200 [place] [address] PCP - General Internal Medicine 03/13/11 documented as of this encounter
--- OUTSIDE RECORDS SUMMARY | 2023-12-18 03:54 | External Medical Summary | Summary of Care ---
Author Name Unknown Organization [facility] Address [address] [place] [address] Phone [phone] Care Team Providers Care Business Operations Consultant Name Role Phone Mike Maki MD Primary Care Provider + Reason for Visit * Reason Onset Date Comments STAIR Lung Nodule 08/10/2023 Encounter Details Date Type Department Care Team (Late st Contact Info) Description 08/10/2023 Telephone STAIR LUNG NODULE [address] [place], [place] [id number] Program, [facility] [address] [place] [address] STAIR Lung Nodule Allergies Active Allergy Reactions Criticality Noted Date [...] Oral Tablet (Lipitor)Indicatio ns:Coronary artery disease of [place] artery of [place] heart with stable angina pectoris (HCC) Take [...] OralHS, Takes at bedtime, Reported on 09/14/2023 documented as of this encounter (statuses as [...] artery disease of n ative artery of north[place] heart with stable angina pectoris 10/31/2019 S/P [...] mRNA, LNP-s, No Pre serve, 2-Dose Series (2sms) 09/19/2020,08/29/2020 Hepatitis B, 20+ yrs 01/08/2021,08/08/2020,07/1108/08/2020 PPD [...] encounter Miscellaneous Notes * Telephone Encounter - Nancy Olivia LPN - 08/10/2023 8:36 AM EDT Patient managed in STAIR Program for Pulmonary Nodule - banner added documented in this encounter Plan of Treatment Upcoming Encounters Date Type Department Care Team (Late st Contact Info) Description 11/10/2023 1:40 PM EDT Anticoagulation Pharmacy, Katherine Cota [place] [address] [place] [address] Pharmacist1, [facility] [address] [place] [address] 12/24/2023 10:20 AM EDT Office Visit General Internal Medicine Katherine Cota [place] [address] [place] [address] Mike Maki MD 200 [place] [address] 04/21/2024 11:00 AM EST Cardiac Studies Cardiac Studies, [facility] 132 [facility] [place] [address] 05/10/2024 11:30 AM EST Office Visit Cardiology, [facility] 132 [place] [address] Prashant Stovall DO 132 [facility] [place] [address] 05/20/2024 1:00 PM EST Procedure Only Urology [facility] 549 [place] [address] Chela Branch MD 549 [place] [address] 05/24/2024 2:20 PM EST Office Visit Nephrology, [facility] [address] [facility] [address] Shar Avelar MD [address] [facility] [address] Health Maintenance Due Date Last Done Comments [...] Power of Attor iglesia? No Care Teams Business Operations Consultant Relationship Specialty Start Date End Date Mike Maki MD [address] [place] [address] PCP - General Internal Medicine 03/13/11 documented as of this encounter
--- OUTSIDE RECORDS SUMMARY | 2023-12-18 03:54 | External Medical Summary | Summary of Care ---
Author Name Unknown Organization [facility] Address [address] [place] [address] Phone [phone] Care Team Providers Care Mainspring Former Brace End Name Role Phone Mike Maki MD Primary Care Provider + Encounter Details Date Type Department Care Team (Late st Contact Info) Description 11/09/2023 Orders Only Urology, [place] [address] [place] [address] Trinity Cantu PA-C [address] [place] [address] Allergies Active Allergy Reactions Criticality Noted Date [...] Oral Tablet (Lipitor)Indicatio ns:Coronary artery disease of [place] artery of [place] heart with stable angina pectoris (HCC) Take [...] artery disease of n ative artery of [place] heart with stable angina pectoris 10/31/2019 S/P [...] Description 11/10/2023 1:40 PM EDT Anticoagulation Pharmacy, [facility] 200 [facility] [place] [address] Pharmacist1, [facility] [address] [place] [address] 11/18/2023 12:10 PM EDT Office Visit Vascular Surgery, [facility] 132 [facility] [place] [address] Jones Kaur MD [address] [place] [address] 12/24/2023 10:20 AM EDT Office Visit General Internal Medicine [facility] 200 [facility] [place] [address] Mike Maki MD 200 [facility] [place] [address] 04/21/2024 11:00 AM EST Cardiac Studies Cardiac Studies, [facility] 132 [facility] [place] [address] 05/10/2024 11:30 AM EST Office Visit Cardiology, [facility] 132 [place] [address] Prashant Stovall, DO 132 [facility] [place] [address] 05/20/2024 1:00 PM EST Procedure Only Urology [facility] 549 [place] [address] Chela Branch MD 549 [place] [address] 05/24/2024 2:20 PM EST Office Visit Nephrology, [facility] 200 [facility] [place] [address] Shar Avelar MD 200 [facility] [place] [address] Health Maintenance Due Date Last Done Comments COVID-19 Vaccine (2022- season) 2023 09/19/2020, 08/29/2020 HbA1c 09/18/2023 03/20/2023, [...] Power of Attor iglesia? No Care Teams Mainspring Former Brace End Relationship Specialty Start Date End Date Mike Maki MD 200 [facility] [place] [address] PCP - General Internal Medicine 03/13/11 documented as of this encounter
--- OUTSIDE RECORDS SUMMARY | 2023-12-18 03:54 | External Medical Summary | Summary of Care ---
Author Name Unknown Organization [facility] Address [address] [place] [address] Phone [phone] Care Team Providers Care Medical Assembler Name Role Phone Mike Maki MD Primary Care Provider + Reason for Visit * Reason Comments Dosage Adjustment In Person (Anticoag Cl inic) Encounter Details Date Type Department Care Team (Latest Contact Info) Description 11/10/2023 1:40 PM EDT Anticoagulation Pharmacy, [facility] 200 [facility] [place] [address] Pharmacist1, [facility] [address] [facility] [place] [address] Anticoagulation management encounter*; S/P TAVR (transcatheter aortic [...] Oral Tablet (Lipitor)Indicatio ns:Coronary artery disease of [place] artery of [place] heart with stable angina pectoris (HCC) Take [...] artery disease of n ative artery of [place] heart with stable angina pectoris 10/31/2019 S/P [...] mRNA, LNP-s, No Pre serve, 2-Dose Series ([employer]) 09/19/2020,08/29/2020 Hepatitis B, 20+ yrs 01/08/2021,08/08/2020,07/1108/08/2020 PPD [...] No 08/03/2023 Does the household have a [facility] regional rehabilitation centerr source of income? (Household - for ages [...] Progress Notes * Benny Lora RPh - 11/10/2023 1:38 PM EDT Medication Therapy Disease Management - Anticoagulation Elkin Agudelo 1945 Current Warfarin Dose As of 11/10/2023 Warfarin maintenance plan: No maintenance plan Patient Findings Positives: Change in medications (Cipro 500mg daily for UTI.) Negatives: Signs/symptoms of thrombosis, Signs/symptoms of bleeding, Change in health, Change in alcohol use, Change in activity, Upcoming invasive procedure, Missed doses, Extra doses, Change in diet/appetite, Bruising INR Result As of 11/10/2023 INR goal: 2.0-3.0 INR used for dosin.2 (11/10/2023) Warfarin Plan As of 11/10/2023 Full warfarin instructions: 5 mg every day Next INR check: 11/25/2023 Repeat PT/INR in 2 week(s) Weekly dose: not changed Benny De Santiago RPh, CACP, CDE Clinical Pharmacist Medication Therapy [facility] 11/10/2023 1:48 PM documented in this encounter Plan of Treatment Upcoming Encounters Date Type Department Care Team (Late st Contact Info) Description 11/25/2023 11:50 AM EDT Anticoagulation Pharmacy, [facility] [place] [address] [place] [address] Pharmacist1, [facility] [address] [place] [address] 12/24/2023 10:20 AM EDT Office Visit General Internal Medicine [facility] [place] [address] [place] [address] [address] Mike Maki MD [address] [place] [address] 04/21/2024 11:00 AM EST Cardiac Studies Cardiac Studies, [facility] [place] [address] 05/10/2024 11:30 AM EST Office Visit Cardiology, [facility] 132 [facility] [place] [address] Prashant Stovall DO [address] [place] [address] 05/20/2024 1:00 PM EST Procedure Only Urology [facility] 549 [place] [address] Chela Branch MD 549 [place] [address] 05/24/2024 2:20 PM EST Office Visit Nephrology, [facility] 200 [facility] [place] [address] Shar Avelar MD 200 [facility] [place] [address] Health Maintenance Due Date Last Done Comments [...] Comments INR FINGERSTICK, POINT OF CARE STAT 11/10/2023 1:40 PM EDT S/P TAVR (transcatheter aortic valve replacement) Aortic valve stenosis, etiology of cardiac valve disease unspecified Anticoagulation management encounter documented in this encounter Results * INR FINGERSTICK, POINT OF CARE (11/10/2023 1:40 PM EDT) Fingerstick INR 2.2 INR 1:44 PM EDT [facility] 56-02 Blood 11/10/2023 1:40 PM EDT 11/10/2023 1:44 PM EDT Narrative [facility] 56-02 - 11/10/2023 1:44 PM EDT Therapeutic ranges for non-operative patients: Prophylaxsis/treatment of DVT: (Range:2.0-3.0) Treatment of pulmonary embolism:(Range:2.0-3.0) Prevention of systemic embolism from: -tissue heart valves -acute myocardial infarction -valvular heart disease -atrial fibrillation (Range: 2.0-3.0) Mechanical prosthetic valves: (Range: 2.5-3.5) Benny De Santiago V, [facility] LAB POINT OF CARE TE ST DOCKED DEVICE UNSOLICITED RESULTS [facility] 56-[address] [place] [address] documented in this encounter Visit Diagnoses Diagnosis [...] Power of Attor iglesia? No Care Teams Medical Assembler Relationship Specialty Start Date End Date Mike Maki MD [address] [place] [address] PCP - General Internal Medicine 03/13/11 documented as of this encounter
--- OUTSIDE RECORDS SUMMARY | 2023-12-18 03:54 | External Medical Summary | Summary of Care ---
Author Name Unknown Organization [facility] Address [address] [place] [address] Phone [phone] Care Team Providers Care Fire Control Technician Name Role Phone Mike Maki MD Primary Care Provider + Reason for Visit * Reason Onset Date Comments Medication Question 11/10/2023 Encounter Details Date Type Department Care Team (Late st Contact Info) Description 11/10/2023 Telephone NephrologyKatherine 200 [facility] [place] [address] Shar Avelar MD 200 [facility] [place] [address] Medication Question Allergies Active Allergy Reactions Criticality [...] Oral Tablet (Lipitor)Indicatio ns:Coronary artery disease of [place] artery of [place] heart with stable angina pectoris (HCC) Take [...] artery disease of n ative artery of [place] heart with stable angina pectoris 10/31/2019 S/P [...] Description 11/25/2023 11:50 AM EDT Anticoagulation Pharmacy, [facility] 200 [place] [address] Pharmacist1, [facility] 200 [facility] [place] [address] 12/24/2023 10:20 AM EDT Office Visit General Internal Medicine [facility] 200 [facility] [place] [address] Mike Maki MD 200 [facility] [place] [address] 04/21/2024 11:00 AM EST Cardiac Studies Cardiac Studies, [facility] 132 [facility] [place] [address] 05/10/2024 11:30 AM EST Office Visit Cardiology, [facility] 132 [facility] [place] [address] Prashant Stovall DO 132 [facility] [place] [address] 05/20/2024 1:00 PM EST Procedure Only Urology [facility] 549 [place] [address] Chela Branch MD [address] [place] [address] 05/24/2024 2:20 PM EST Office Visit Nephrology, Katherine Cota [address] [place] [address] Shar Avelar MD [address] [place] [address] Health Maintenance Due Date Last Done Comments [...] Power of Attor iglesia? No Care Teams Fire Control Technician Relationship Specialty Start Date End Date Mike Maki MD 200 [facility] [place] [address] PCP - General Internal Medicine 03/13/11 documented as of this encounter
--- OUTSIDE RECORDS SUMMARY | 2023-12-18 03:54 | External Medical Summary | Summary of Care ---
Author Name Unknown Organization [facility] Address [address] [place] [address] Phone [phone] Care Team Providers Care Auditing Clerk Name Role Phone Mike Maki MD Primary Care Provider + Reason for Visit * Reason Onset Date Comments Culture Results 11/10/2023 Encounter Details Date Type Department Care Team ([facility] Contact Info) Description 11/10/2023 Telephone Urology [facility] [address] [place] [address] Chela Branch MD 549 [place] [address] Culture Results Allergies Active Allergy Reactions Criticality Noted [...] Oral Tablet (Lipitor)Indicatio ns:Coronary artery disease of [place] artery of [place] heart with stable angina pectoris (HCC) Take [...] artery disease of n 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 He is likely colonized He has only tiredness as a symptom- no dysuria etc I suggest do not treat now If he does get symptomatic I think he should take half tabs as his gfr is critically low Chela Branch MD 11/10/2023 5:16 PM documented in this encounter Plan of Treatment Upcoming Encounters Date Type Department Care Team (Late st Contact Info) Description 11/25/2023 11:50 AM EDT Anticoagulation Pharmacy, [facility] [address] [facility] [place] [address] Pharmacist1, [facility] 200 [facility] [place] [address] 12/24/2023 10:20 AM EDT Office Visit General Internal Medicine [facility] [address] [facility] [place] [address] Mike Maki MD [address] [facility] [place] [address] 04/21/2024 11:00 AM EST Cardiac Studies Cardiac Studies, [facility] [address] [place] [address] 05/10/2024 11:30 AM EST Office Visit Cardiology, [facility] [address] [place] [address] Prashant Stovall DO 132 [place] [address] 05/20/2024 1:00 PM EST Procedure Only Urology [address] [address] Chela Branch MD 549 [place] [address] 05/24/2024 2:20 PM EST Office Visit Nephrology, Katherine Cota [address] [facility] [place] [address] Shar Avelar MD [address] [facility] [place] [address] Health Maintenance Due Date Last Done Comments [...] Power of Attor iglesia? No Care Teams Auditing Clerk Relationship Specialty Start Date End Date Mike Maki MD 200 [place] [address] PCP - General Internal Medicine 03/13/11 documented as of this encounter
--- OUTSIDE RECORDS SUMMARY | 2023-12-18 03:55 | External Medical Summary | Summary of Care ---
Author Name Unknown Organization [facility] Address [address] [place] [address] Phone [phone] Care Team Providers Care Fitting Room Maintenance Mechanic Name Role Phone Mike Maki MD Primary Care Provider + Reason for Visit * Reason Onset Date Comments Advice 11/09/2023 Encounter Details Date Type Department Care Team (Late st Contact Info) Description 11/09/2023 Telephone Urology, [place] [address] [place] [address] Trinity Cantu PA-C [address] [place] [address] Advice Allergies Active Allergy Reactions [...] Oral Tablet (Lipitor)Indicatio ns:Coronary artery disease of [place] artery of [place] heart with stable angina pectoris (HCC) Take [...] artery disease of n ative artery of [place] heart with stable angina pectoris 10/31/2019 S/P [...] De Santiago RPh, [facility] Clinical Pharmacist Medication Therapy Management Clinic 11/09/2023, [...] Description 11/10/2023 1:40 PM EDT Anticoagulation Pharmacy, [facility] [address] [place] [address] Pharmacist1, [facility] [address] [facility] [place] [address] 11/18/2023 12:10 PM EDT Office Visit Vascular Surgery, [facility] [address] [facility] [place] [address] Jones Kaur MD 100 [address] [facility] [place] [address] 12/24/2023 10:20 AM EDT Office Visit General Internal Medicine [facility] [address] [place] [address] Mike Maki MD 200 [facility] [place] [address] 04/21/2024 11:00 AM EST Cardiac Studies Cardiac Studies, [facility] [place] [address] 05/10/2024 11:30 AM EST Office Visit Cardiology, [facility] 132 [facility] [place] [address] Prashant Stovall, 132 [facility] [place] [address] 05/20/2024 1:00 PM EST Procedure Only Urology [facility] [address] [place] [address] Chela Branch MD [address] [place] [address] 05/24/2024 2:20 PM EST Office Visit Nephrology, [facility] 200 [facility] [place] [address] Shar Avelar MD 200 [facility] [place] [address] Health Maintenance Due Date Last Done Comments [...] Power of Attor iglesia? No Care Teams Fitting Room Maintenance Mechanic Relationship Specialty Start Date End Date Mkie Maki MD 200 [facility] [place] [address] PCP - General Internal Medicine 03/13/11 documented as of this encounter
--- OUTSIDE RECORDS SUMMARY | 2023-12-18 03:55 | External Medical Summary | Summary of Care ---
Author Name Unknown Organization [facility] Address [address] [place] [address] Phone [phone] Care Team Providers Care Medical Claims Assistant Name Role Phone Mike Maki MD Primary Care Provider + Reason for Visit * Reason Comments Cystoscopy Encounter Details Date Type Department Care Team (Latest Contact Info) Description 11/06/2023 11:30 AM EDT Procedure Only Urology [address] [address] Chela Trinidad MD [address] [place] [address] 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)*; Pyuria; Pseudomonas urinary tract infection Allergies Active Allergy Reactions Criticality Noted Date Comments Cephalexin 03/13/2011 Tamsulosin Hcl Unknown High 04/15/2011 Tongue swelling documented as of this encounter (statuses as of 11/06/2023) Medications Medication Sig Dispensed Refills Start Date [...] Oral Tablet (Lipitor)Indicatio ns:Coronary artery disease of [place] artery of [place] heart with stable angina pectoris (HCC) Take [...] every evening. 90 Tablet 3 11/04/2023 Active Hospital, Clinic, or Other Facility Administered Medication Ordered Dose Route Frequency Start Date End Date Status gentamicin inj 80 mgIndications: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),Pyuria,Pseudomonas urinary tract infection 80 mg IM ONCE 11/06/2023 11/06/2023 E nded gentamicin inj 80 mgIndications: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),Pyuria,Pseudomonas urinary tract infection 80 mg IS ONCE 11/06/2023 11/06/2023 E nded documented as of this encounter (statuses as of 11/06/2023) Active Problems Problem Noted Date Diagnosed Date [...] artery disease of n ative artery of [place] heart with stable angina pectoris 10/31/2019 S/P [...] as of this encounter (statuses as of 11/06/2023) Resolved Problems Problem Noted Date Diagnosed Date Resolved Date Type 2 diabetes mellitus wit h diabetic chronic kidney disease 04/11/2020 02/20/2022 Closed fracture of one rib o f left side with routine healing 02/29/2020 02/29/2020 Pre-diabetes 01/05/2020 07/11/2020 Aortic stenosis, severe 11/10/201905/20 Acute blood loss anemia 11/10/2019/08/2020 Symptomatic anemia 11/10/2019 Elevated troponin 11/10/2019 11/14/2019 History of drainage of abscess 05/26/2018 07/11/2020 Overview: Testes 2011 Mass of skin of hand, left 05/26/2018 0 11/10/2022 UTI symptoms 10/11/2016 05/26/2018 Testicular abscess 01/01/2012 9 Overview: 2011 Kidney disease, chronic, sta ge IV (GFR 15-29 ml/min) 08/18/2011 06/01/2019 Hemorrhoids, external without complications 08/13/2011 05/26/2018 BPH without obstruction/lowe r urinary tract symptoms 04/03/2011 04/22/2011 HTN, goal below 140/90 03/13/201104/22 documented as of this encounter (statuses as of 11/06/2023) Immunizations Name Administration Dates Next Due COVID-19 mRNA, LNP-s, No Pre serve, 2-Dose Series ([employer]) 09/19/2020,08/29/2020 Hepatitis B, 20+ yrs 01/08/2021,08/08/2020,07/1108/08/2020 PPD [...] on file documented as of this encounter Last Filed Vital Signs Vital Sign Reading Time Taken Comments Blood Pressure 148/58 11/06/2023 11:24 AM EDT Pulse 78 11/06/2023 11:24 AM EDT Temperature 36 C (96.8 F) 11/06/2023 11:24 AM EDT Respiratory Rate - - Oxygen Saturation - - Inhaled Oxygen Concentration - - Weight - - Height - - Body Mass Index - - documented in this encounter Functional Status Functional Status Response [...] as of this encounter Progress Notes * Chela Trinidad MD - 11/06/2023 11:29 AM EDT He had small tumors on the edge of diverticula on right and left inferior lateral deng. Resected may 2022. TaG1. NAME: Elkin Agudelo CYSTOSCOPY PROCEDURE OUTPATIENT NOTES 11/06/2023 CLINICAL DATA: 77 year old male who has new diagnosis bladder cancer TaG1 resected may 2022 small TaG1 tumors on edges of tics right and left lateral inferior deng. Also swipes some superficial stones pockets in prostate that time. His post op course was complicated by pseudomonas uti req 2 weeksiv abt at [facility] due to being cipro resistant. We gave 80mg im gent for prior uti He will get a forearm av- graft next week with Dr Whiting at [facility] PROCEDURE: Cystoscopy INSTRUMENT: [employer] Flexibile Cystoscope EXTERNAL GENITALIA: Unremarkable. URETHRA: Without stricture or lesion. PROSTATE: Trilobar hyperplasia BLADDER: Bladder mucosa is remarkable for cloudy urine with fine white debris. I drained 150mL cloudy urine in order to see better. He is trabeculated. Specifically, there is no evidence for papillary neoplastic changes but some areas are pink perhaps from the bacteriuria or debris? The ureteral orifices are of normal position and configuration. I sent urine for culture and emptied him fully. I injected 80mg of gent into the bladder through the scope. We also gave 80mg gent im. IMPRESSION: no new tumor Repeat cysto in 6 months PLAN: Urine sent for culture in case he develops symptoms from scope. Chela Trinidad MD Department of Urology documented in this encounter Miscellaneous Notes * Addendum Note - Chela Trinidad MD - 11/06/2023 4:42 PM EDTAddended by: CHELA TRINIDAD on: 11/06/2023 04:42 PM Modules accepted: Orders * Addendum Note - Julian Pelaez RN - 11/06/2023 4:32 PM EDTAddended by: JULIAN PELAEZ on: 11/06/2023 04:32 PM Modules accepted: Orders * Addendum Note - Germán Sy PBT - 11/06/2023 2:33 PM EDTAddended by: GERMÁN SY on: 11/06/2023 02:33 PM Modules accepted: Orders documented in this encounter Plan of Treatment Upcoming Encounters Date Type Department Care Team (Late st Contact Info) Description 11/10/2023 1:40 PM EDT Anticoagulation Pharmacy, [facility] 200 [facility] [place] [address] Pharmacist1, [facility] [address] [place] [address] 11/18/2023 12:10 PM EDT Office Visit Vascular Surgery, [facility] [address] [facility] [place] [address] Jones Kaur MD [address] [facility] [place] [address] 12/24/2023 10:20 AM EDT Office Visit General Internal Medicine [facility] 200 [facility] [place] [address] Mike Maki MD 200 [facility] [place] [address] 04/21/2024 11:00 AM EST Cardiac Studies Cardiac Studies, [facility] 132 [place] [address] 05/10/2024 11:30 AM EST Office Visit Cardiology, [facility] [address] [place] [address] Prashant Stovall DO 132 [place] [address] 05/20/2024 1:00 PM EST Procedure Only Urology [facility] [address] [place] [address] Chela Trinidad MD [address] [place] [address] 05/24/2024 2:20 PM EST Office Visit Nephrology, [facility] 200 [facility] [place], [place] [address] Shar Avelar MD 200 [facility] [place] [address] Pending Results Name Type Priority Associated Diagnoses Date /Time CULTURE, URINE, QUANTITATIVE Lab Routine 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) Pyuria 11/06/2023 2:13 PM EDT CYTOLOGY Pathology Routine 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) 11/06/2023 2:12 PM EDT Scheduled Orders Name Type Priority Associated Diagnoses Orde r Schedule CULTURE, URINE, QUANTITATIVE Lab Routine 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) Pyuria Expected: 11/06/2023, Expires: 11/05/2024 CYTOLOGY Pathology Routine 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) Expected: 11/06/2023, Expires: 12/05/2024 Health Maintenance Due Date Last Done Comments [...] Procedure Name Priority Date/Time Associated Diagnosis Comments EXTRA URINE Routine 11/06/2023 2:13 PM EDT EXTRA TUBES Routine 11/06/2023 2:13 PM EDT documented in this encounter Results * EXTRA URINE (11/06/2023 2:13 PM EDT) Urine Urine specimen / Unknown 11/06/2023 2:13 PM EDT 11/06/2023 2:33 PM EDT Chela Trinidad MD LAB URINE ORDERABLES Performing Organization Address City/State/[facility] Co de [place] [address] documented in this encounter Visit Diagnoses Diagnosis 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)- Primary Malignant neoplasm of lateral wall of urinary bladder Pyuria Other nonspecific finding on examination of urine Pseudomonas urinary tract infection Urinary tract infection, site not specified documented in this encounter Administered Medications Inactive Administered Medications - up to 3 most recent administrations Medication Order MAR Action Action Date Dose Rate Site gentamicin inj 80 mg 80 mg, Intramuscular, ONCE, On Thu11/06/23 at 1715, For 1 dose Given 11/06/2023 4:52 PM EDT 80 mg Deltoid Right Upper gentamicin inj 80 mg 80 mg, Intravesical, ONCE, On Thu11/06/23 at 1715, For 1 dose Given 11/06/2023 4:51 PM EDT 80 mg documented in this encounter Advance Directives * [...] of Attor iglesia? No Care Teams Medical Claims Assistant Relationship Specialty Start Date End Date Mike Maki MD [address] [place] [id number] PCP - General Internal Medicine 03/13/11 documented as of this encounter
--- OUTSIDE RECORDS SUMMARY | 2023-12-18 03:55 | External Medical Summary ---
Author Name Unknown Address Unknown Organization K01:[facility] - [address] [place] [address] Laboratory Report Ordering Provider Test Date Status DOUGLAS ENRIQUEMONS 11/06/2023 14:13:47 Final Observation Date Value Abnormality Reference (Units ) Status Bacteria identified in Specimen by Culture 11/06/2023 14:13:47 [id number]^PSEUDOMON AERUGINOSA Abnormal Final 100 to 999 colonies/mL Pseud omonas aeruginosa Performing Location [facility] - [address] [place] [address] Ordering Provider Test Date Status DOUGLAS ENRIQUEMONS 11/06/2023 14:13:47 Final Observation Date Value Abnormality Reference (Units ) Status Cefepime susceptibility 11/06/2023 14:13:47 2 Susceptible Final Ciprofloxacin 11/06/2023 14:13:47 <=0.25 Susceptible Final Due to serious side effects, the FDA has advised against using Ciprofloxacin to treat uncomplicated UTIs and respiratory tract infections unless there are no alternative treatment options. Levofloxacin susceptibility 11/06/2023 14:13:47 0.25 Acuna sceptible Final Due to serious side effects, the FDA has advised against using Levofloxacin to treat uncomplicated UTIs and respiratory tract infections unless there are no alternative treatment options. Piperacillin + Tazobactamsusceptibility 11/06/2023 14:13:47 8 Susceptible Final Tobramycinsusceptibility 11/06/2023 14:13:47 <=1 Susce ptible Final Test: Culture, Urine, Quanti tative
Specimen Source: Urine, Cystoscopy
Specimen Type: Urine
Specimen Date: 11/06/2023 1413
Result Date: 11/09/2023 1139
Result Status: Final result
Abnormal: Yes
Resulting Lab: [facility]
[address]
[place] [address]

CULTURE

100 to 999 colonies/mL Pseudomonas aeruginosa (Abnormal)

SUSCEPTIBILITY

Pseudomonas
aeruginosa
METHOD MICROBROTH
DILUTIONS

CEFEPIME 2 Susceptible
CIPROFLOXACIN <=0.25 Susceptible
[1]
LEVOFLOXACIN 0.25 Susceptible
[2]
PIPERACILLIN TAZOBACTAM 8 Susceptible
TOBRAMYCIN <=1 Susceptible

[1] Due to serious side effects, the FDA has advised against using
Ciprofloxacin to treat uncomplicated UTIs and respiratory tract infections
unless there are no alternative treatment options.

[2] Due to serious side effects, the FDA has advised against using
Levofloxacin to treat uncomplicated UTIs and respiratory tract infections
unless there are no alternative treatment options.

null Performing Location LABORATORY [facility] - [facility] N [facility] prachi Irizarry. [facility] [address]
--- OUTSIDE RECORDS SUMMARY | 2023-12-18 03:55 | External Medical Summary | Summary of Care ---
Author Name Unknown Organization [facility] Address [address] [place] [address] Phone [phone] Care Team Providers Care Medical Billing Clerk Name Role Phone Mike Maki MD Primary Care Provider + Reason for Visit * Reason Comments Cystoscopy Encounter Details Date Type Department Care Team (Latest Contact Info) Description 11/06/2023 11:30 AM EDT Procedure Only Urology [address] [address] Chela Trinidad MD [address] [place] [address] Malignant neoplasm of lateral wall of urinary [...] Oral Tablet (Lipitor)Indicatio ns:Coronary artery disease of [place] artery of [place] heart with stable angina pectoris (HCC) Take [...] tract infection 80 mg IM ONCE 11/06/2023 11/07/2023 A ctive gentamicin inj 80 mgIndications: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),Pyuria,Pseudomonas urinary tract infection 80 mg IS ONCE 11/06/2023 11/07/2023 A ctive documented as of this encounter (statuses as [...] artery disease of n ative artery of [place] heart with stable angina pectoris 10/31/2019 S/P [...] mRNA, LNP-s, No Pre serve, 2-Dose Series ([employer]) 09/19/2020,08/29/2020 Hepatitis B, 20+ yrs 01/08/2021,08/08/2020,07/1108/08/2020 PPD [...] was complicated by pseudomonas uti req 2 weeks iv abt at [facility] due to being cipro resistant. We gave 80mg im gent for prior uti PROCEDURE: Cystoscopy INSTRUMENT: [facility] Flexibile Cystoscope EXTERNAL GENITALIA: Unremarkable. URETHRA: Without [...] urine for culture and emptied him fully. IMPRESSION: no new tumor Repeat cysto in [...] Description 11/10/2023 1:40 PM EDT Anticoagulation Pharmacy, [facility] [address] [place] [address] Pharmacist1, [facility] [address] [place] [address] 11/18/2023 12:10 PM EDT Office Visit Vascular Surgery, [facility] 132 [facility] [place] [address] Jones Kaur MD [address] [facility] [address] 12/24/2023 10:20 AM EDT Office Visit General Internal Medicine [facility] [address] [place] [address] Mike Maki MD 200 [facility] [place], [place] [address] 04/21/2024 11:00 AM EST Cardiac Studies Cardiac Studies, [facility] 132 [facility] [place] [address] 05/10/2024 11:30 AM EST Office Visit Cardiology, [facility] 132 [place] [address] Prashant Stovall DO 132 [facility] [place] [address] 05/20/2024 1:00 PM EST Procedure Only Urology [address] [address] Chela Trinidad MD [address] [place] [address] 05/24/2024 2:20 PM EST Office Visit Nephrology, [facility] 200 [facility] [place], [place] [address] Shar Avelar MD 200 [facility] [place], [place] [address] Pending Results Name Type Priority Associated Diagnoses [...] EDT Chela Trinidad MD LAB URINE ORDERABLES LABORATORY [address] [address] documented in this encounter Visit Diagnoses Diagnosis 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)- Primary Malignant neoplasm of lateral wall of urinary bladder Pyuria Other nonspecific finding on examination of urine Pseudomonas urinary tract infection Urinary tract infection, site not specified documented in this encounter Advance Directives * [...] of Attor iglesia? No Care Teams Medical Billing Clerk Relationship Specialty Start Date End Date Mike Maki MD 200 [place] [address] PCP - General Internal Medicine 03/13/11 documented as of this encounter
--- OUTSIDE RECORDS SUMMARY | 2023-12-18 03:55 | External Medical Summary | Summary of Care ---
Author Name Unknown Organization [facility] Address [address] [place] [address] Phone [phone] Care Team Providers Care Tubular Riveter Name Role Phone Mike Maki MD Primary Care Provider + Reason for Visit * Reason Comments Cystoscopy Encounter Details Date Type Department Care Team (Latest Contact Info) Description 11/06/2023 11:30 AM EDT Procedure Only Urology [address] [address] Chela Trinidad MD [address] [place] [address] Malignant neoplasm of lateral wall of urinary [...] Oral Tablet (Lipitor)Indicatio ns:Coronary artery disease of [place] artery of [place] heart with stable angina pectoris (HCC) Take [...] artery disease of n ative artery of [place] tribe heart with stable angina pectoris 10/31/2019 S/P [...] mRNA, LNP-s, No Pre serve, 2-Dose Series ([employer]) 09/19/2020,08/29/2020 Hepatitis B, 20+ yrs 01/08/2021,08/08/2020,07/1108/08/2020 PPD [...] uti req 2 weeks iv abt at [facility] due to being cipro resistant. We gave 80mg im gent for prior uti He will get a forearm av- graft next week with Dr Whiting at [facility] PROCEDURE: Cystoscopy INSTRUMENT: [employer] Flexibile Cystoscope EXTERNAL GENITALIA: Unremarkable. URETHRA: Without [...] Description 11/10/2023 1:40 PM EDT Anticoagulation Pharmacy, [facility] 200 [facility] [place] [address] Pharmacist1, [facility] [address] [place] [address] 11/18/2023 12:10 PM EDT Office Visit Vascular Surgery, [facility] [address] [facility] [place] [address] Jones Kaur MD [address] [facility] [place] [address] 12/24/2023 10:20 AM EDT Office Visit General Internal Medicine [facility] 200 [facility] [place] [address] Mike Maki MD 200 [facility] [place] [address] 04/21/2024 11:00 AM EST Cardiac Studies Cardiac Studies, [facility] 132 [place] [address] 05/10/2024 11:30 AM EST Office Visit Cardiology, [facility] 132 [place] [address] Prashant Stovall DO 132 [place] [address] 05/20/2024 1:00 PM EST Procedure Only Urology [facility] [address] [place] [address] Chela Trinidad MD [address] [place] [address] 05/24/2024 2:20 PM EST Office Visit Nephrology, [facility] 200 [facility] [place], [place] [address] Shar Avelar MD 200 [facility] [place] [address] Pending Results Name Type Priority Associated Diagnoses [...] MD LAB URINE ORDERABLES Performing Organization Address City/State/[facility] Co de [place] [address] documented in this encounter Visit Diagnoses Diagnosis [...] Power of Attor iglesia? No Care Teams Tubular Riveter Relationship Specialty Start Date End Date Mike Maki MD [address] [place] [address] PCP - General Internal Medicine 03/13/11 documented as of this encounter
--- OUTSIDE RECORDS SUMMARY | 2023-12-18 03:55 | External Medical Summary | Summary of Care ---
Author Name Unknown Organization [facility] Address [address] [place] [address] Phone [phone] Care Team Providers Care Telephone Claims Representative Name Role Phone Mike Maki MD Primary Care Provider + Reason for Visit * Reason Comments Cystoscopy Encounter Details Date Type Department Care Team (Latest Contact Info) Description 11/06/2023 11:30 AM EDT Procedure Only Urology [address] [address] Chela Branch MD [address] [place] [address] Malignant neoplasm of lateral wall of urinary [...] Oral Tablet (Lipitor)Indicatio ns:Coronary artery disease of [place] artery of [place] heart with stable angina pectoris (HCC) Take [...] every evening. 90 Tablet 3 11/04/2023 Active documented as of this encounter (statuses [...] artery disease of n ative artery of [place] heart with stable angina pectoris 10/31/2019 S/P [...] of this encounter Progress Notes * Chela Branch MD - 11/06/2023 11:29 AM EDT He [...] uti req 2 weeks iv abt at [facility] due to being cipro resistant. We gave 80mg im gent for prior uti PROCEDURE: Cystoscopy INSTRUMENT: Pharminexx Flexibile Cystoscope EXTERNAL GENITALIA: Unremarkable. URETHRA: Without [...] case he develops symptoms from scope. Chela Branch MD Department of Urology documented in this encounter Miscellaneous Notes * Addendum Note - Germán Sy, PBT - 11/06/2023 2:33 PM EDTAddended by: GERMÁN SY on: 11/06/2023 02:33 PM Modules accepted: Orders documented in this encounter Plan of Treatment Upcoming Encounters Date Type Department Care Team (Late st Contact Info) Description 11/10/2023 1:40 PM EDT Anticoagulation Pharmacy, [facility] [address] [place] [address] Pharmacist1, [facility] 200 [facility] [place] [address] 11/18/2023 12:10 PM EDT Office Visit Vascular Surgery, [facility] 132 [place] [address] Jones Kaur MD [address] [place] [address] 12/24/2023 10:20 AM EDT Office Visit General Internal Medicine [facility] 200 [facility] [place] [address] Mike Maki MD 200 [facility] [place] [address] 04/21/2024 11:00 AM EST Cardiac Studies Cardiac Studies, [facility] 132 [place] [address] 05/10/2024 11:30 AM EST Office Visit Cardiology, [facility] 132 [place] [address] Prashant Stovall DO 132 [facility] [address] 05/20/2024 1:00 PM EST Procedure Only Urology [facility] [address] [place] [address] Chela Branch MD [address] [place] [address] 05/24/2024 2:20 PM EST Office Visit Nephrology, [facility] [address] [place] [address] Shar Avelar MD 200 [facility] [place] [address] Pending Results Name Type Priority Associated Diagnoses Date /Time CULTURE, URINE, QUANTITATIVE Lab Routine 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) Pyuria 11/06/2023 2:13 PM EDT CYTOLOGY Pathology Routine 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) 11/06/2023 2:12 PM EDT EXTRA TUBES Lab Routine 11/06/2023 2: 13 PM EDT EXTRA URINE Lab Routine 11/06/2023 2: 13 PM EDT Scheduled Orders Name Type Priority [...] as of this encounter Visit Diagnoses Diagnosis Malignant neoplasm [...] Power of Attor iglesia? No Care Teams Telephone Claims Representative Relationship Specialty Start Date End Date Mike Maki MD 200 [facility] [place] [address] PCP - General Internal Medicine 03/13/11 documented as of this encounter
--- OUTSIDE RECORDS SUMMARY | 2023-12-18 03:55 | External Medical Summary | Summary of Care ---
Author Name Unknown Organization [facility] Address [address] [place] [address] Phone [phone] Care Team Providers Care Floral Department Specialist Name Role Phone Mike Maki MD Primary Care Provider + Reason for Visit * Reason Comments Cystoscopy Encounter Details Date Type Department Care Team (Latest Contact Info) Description 11/06/2023 11:30 AM EDT Procedure Only Urology [address] [address] Chela Branch MD [address] [place] [address] Malignant neoplasm of lateral wall of urinary [...] Oral Tablet (Lipitor)Indicatio ns:Coronary artery disease of [place] artery of [place] heart with stable angina pectoris (HCC) Take [...] artery disease of n ative artery of [place]al[place] heart with stable angina pectoris 10/31/2019 S/P [...] uti req 2 weeks iv abt at [facility] due to being cipro resistant. We gave 80mg im gent for prior uti PROCEDURE: Cystoscopy INSTRUMENT: [employer] Flexibile Cystoscope EXTERNAL GENITALIA: Unremarkable. URETHRA: Without [...] Department of Urology documented in this encounter Plan of Treatment Upcoming Encounters Date Type Department Care Team (Late st Contact Info) Description 11/10/2023 1:40 PM EDT Anticoagulation Pharmacy, [place] 200 [facility] [place] [address] Pharmacist1, [facility] 200 [facility] [place], [place] [address] 11/18/2023 12:10 PM EDT Office Visit Vascular Surgery, [facility] [address] [place] [address] Jones Kaur MD [address] [place] [address] 12/24/2023 10:20 AM EDT Office Visit General Internal Medicine [facility] [address] [place] [address] Mike Maki MD 200 [facility] [place] [address] 04/21/2024 11:00 AM EST Cardiac Studies Cardiac Studies, [facility] 132 [place] [address] 05/10/2024 11:30 AM EST Office Visit Cardiology, [facility] 132 [place] [address] Prashant Stovall, 132 [place] [address] 05/20/2024 1:00 PM EST Procedure Only Urology [facility] [address] [place] [address] Chela Branch MD 549 [place] [address] 05/24/2024 2:20 PM EST Office Visit Nephrology, [facility] [address] [place], [place] [address] Shar Avelar MD 200 [facility] [place] [address] Pending Results Name Type Priority Associated Diagnoses [...] Power of Attor iglesia? No Care Teams Floral Department Specialist Relationship Specialty Start Date End Date Mike Maki MD [address] [place] [address] PCP - General Internal Medicine 03/13/11 documented as of this encounter
--- OUTSIDE RECORDS SUMMARY | 2023-12-18 03:55 | External Medical Summary | Summary of Care ---
Author Name Unknown Organization [facility] Address [address] [place] [address] Phone [phone] Care Team Providers Care Warehouse Operations Manager Name Role Phone Mike Maki MD Primary Care Provider + Reason for Visit * Reason Comments Cystoscopy Encounter Details Date Type Department Care Team (Latest Contact Info) Description 11/06/2023 11:30 AM EDT Procedure Only Urology [address] [address] Chela Branch MD [address] [place] [address] Malignant neoplasm of lateral wall of urinary [...] Oral Tablet (Lipitor)Indicatio ns:Coronary artery disease of [place] artery of [place] heart with stable angina pectoris (HCC) [...] artery disease of n 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 We gave 80mg im gent for prior uti PROCEDURE: Cystoscopy INSTRUMENT: NeuMed[employer]x Flexibile Cystoscope EXTERNAL GENITALIA: Unremarkable. URETHRA: Without [...] encounter Miscellaneous Notes * Addendum Note - Julian Pelaez RN - 11/06/2023 4:32 PM EDTAddended by: JULIAN PELAEZ on: 11/06/2023 04:32 PM Modules accepted: Orders * Addendum Note - Germán Sy, PBT - 11/06/2023 2:33 PM EDTAddended by: GERMÁN SY on: 11/06/2023 02:33 PM Modules accepted: Orders documented in this encounter Plan of Treatment Upcoming Encounters Date Type Department Care Team (Late st Contact Info) Description 11/10/2023 1:40 PM EDT Anticoagulation Pharmacy, [facility] 200 [facility] [place] [address] Pharmacist1, [facility] 200 [facility] [place] [address] 11/18/2023 12:10 PM EDT Office Visit Vascular Surgery, [facility] 132 [facility] [place] [address] Jones Kaur MD [address] [place] [address] 12/24/2023 10:20 AM EDT Office Visit General Internal Medicine [facility] 200 [place] [address] Mike Maki MD 200 [facility] [place] [address] 04/21/2024 11:00 AM EST Cardiac Studies Cardiac Studies, [facility] 132 [facility] [place] [address] 05/10/2024 11:30 AM EST Office Visit Cardiology, [facility] 132 [facility] [place] [address] Prashant Stovall DO [address] [place] [address] 05/20/2024 1:00 PM EST Procedure Only Urology [facility] [address] [place] [address] Chela Branch MD [address] [place] [address] 05/24/2024 2:20 PM EST Office Visit Nephrology, [place] 200 [place] [address] Shar Avelar MD 200 [place] [address] Pending Results Name Type Priority Associated Diagnoses [...] PM EDT 11/06/2023 2:33 PM EDT Chela Branch MD LAB URINE ORDERABLES Performing Organization Address City/State/[facility] [place] [address] documented in this encounter Visit Diagnoses Diagnosis [...] patient have Health Care Power of Attor igelsia? No Care Teams Warehouse Operations Manager Relationship Specialty Start Date End Date Mike Maki MD 200 [place] [address] PCP - General Internal Medicine 03/13/11 documented as of this encounter
--- OUTSIDE RECORDS SUMMARY | 2023-12-18 03:55 | External Medical Summary | Summary of Care ---
Author Name Unknown Organization [facility] Address [address] [place] [address] Phone [phone] Care Team Providers Care Dental Appliance Repairer Name Role Phone Mike Maki MD Primary Care Provider + Reason for Visit * Reason Comments Dosage Adjustment In Person (Anticoag Cl inic) Encounter Details Date Type Department Care Team (Latest Contact Info) Description 11/04/2023 11:40 AM EDT Anticoagulation Pharmacy, [facility] 200 [facility] [address] Pharmacist1, [facility] 200 [facility] [place] [address] S/P TAVR (transcatheter aortic valve replacement)*; Aortic valve stenosis, etiology of cardiac valve disease unspecified; Anticoagulation management encounter Allergies Active Allergy Reactions Criticality Noted Date Comments Cephalexin 03/13/2011 Tamsulosin Hcl Unknown High 04/15/2011 Tongue swelling documented as of this encounter (statuses as of 11/04/2023) Medications Medication Sig Dispensed Refills Start Date [...] THE MORNING 90 Capsule 3 10/03/2022 Active Additional Information Patient taking differently: HS, Reported on 12/01/2022 Atorvastatin Calcium 80 MG Oral Tablet (Lipitor)Indicati ons:Coronary artery disease of [place] artery of [place] heart with stable angina pectoris (HCC) Take 1 Tablet by mouth at bedtime. 90 Tablet 3 01/13/2023 Active amLODIPine Besylate 5 MG Oral Tablet (Norvasc) Take 1 Tablet by mouth at bedtime. 90 Tablet 3 02/18/2023 Active Fluocinonide 0.05 % External SolutionIndicatio ns:Seborrheic dermatitis Apply topically to affected area daily. Apply to scalp daily until symptoms resolve. 60 mL 3 03/18/2023 Active Torsemide 20 MG Oral Tablet (Demadex)Indicati ons:CKD (chronic kidney disease) stage 5, GFR less [...] 09/14/2023 Triamcinolone Acetonide 0.1 % External Cream (Aristocort)Indic ations:Rash and nonspecific skin eruption Apply topically to affected area 2 times a day. 80 g 3 08/25/2023 Active Calcium Acetate (Phos Binder) 667 MG Oral Capsule (Phoslo)Henryo ns:CKD (chronic kidney disease) stage 5, GFR less than 15 ml/min (HCC) Take 1 Capsule by mouth in the morning and 1 Capsule at noon and 1 Capsule in the evening. Take with meals. 270 Capsule 3 09/23/2023 Active Warfarin Sodium 5 MG Oral Tablet (Coumadin)Indicat ions:S/P TAVR (transcatheter aortic valve replacement),Aort ic valve stenosis, etiology of cardiac valve disease unspecified,Antic oagulation management encounter Take 1 Tablet by mouth every evening. 90 Tablet 3 11/04/2023 Active Warfarin Sodium 2.5 MG Oral Tablet (Coumadin)Indicat ions:S/P TAVR (transcatheter aortic valve replacement),Aort ic valve stenosis, etiology of cardiac valve disease unspecified Take 1 Tablet by mouth every evening. 30 Tablet 5 10/21/2023 4 Discontinue d(Medicatio n/Dose Changed) documented as of this encounter (statuses as of 11/04/2023) Active Problems Problem Noted Date Diagnosed Date [...] disease of n ative artery of [place] heart with stable angina pectoris 10/31/2019 S/P [...] as of this encounter (statuses as of 11/04/2023) Resolved Problems Problem Noted Date Diagnosed Date [...] as of this encounter (statuses as of 11/04/2023) Immunizations Name Administration Dates Next Due COVID-19 mRNA, LNP-s, No Pre serve, 2-Dose Series ([employer]) 09/19/2020,08/29/2020 Hepatitis B, 20+ yrs 01/08/2021,08/08/2020,07/1108/08/2020 PPD [...] Progress Notes * Benny Lora RPh - 11/04/2023 11:36 AM EDT Images from the original note were not included. Medication Therapy Disease Management - Anticoagulation Elkin Herreramelinda 1945 Current Warfarin Dose As of 11/04/2023 Warfarin maintenance plan: No maintenance plan Patient Findings Negatives: Signs/symptoms of thrombosis, Signs/symptoms of bleeding, Change in health, Change in alcohol use, Change in activity, Upcoming invasive procedure, Missed doses, Extra doses, Change in medications, Change in diet/appetite, Bruising INR Result As of 11/04/2023 INR goal: 2.0-3.0 INR used for dosin.7 (11/04/2023) Warfarin Plan As of 11/04/2023 Full warfarin instructions: 11/03: 7.5 mg; 6/20: 5 mg; 6/21: 5 mg; 6/22: 5 mg; 6/23: 5 mg; 6/24: 5 mg Next INR check: 11/10/2023 Repeat PT/INR in 6 day(s) Weekly dose: increased Benny De Santiago RPh, CACP, CDE Clinical Pharmacist Medication Therapy Management [facility] 11/04/2023 11:49 AM documented in this encounter Plan of Treatment Upcoming Encounters Date Type Department Care Team ([facility] st Contact Info) Description 11/06/2023 11:30 AM EDT Procedure Only Urology [address] [address] Chela Branch MD [address] [place] [address] 11/10/2023 1:40 PM EDT Anticoagulation Pharmacy, [facility] 200 [facility] [place] [address] Pharmacist1, [facility] [address] [place] [address] 11/18/2023 12:10 PM EDT Office Visit Vascular Surgery, [facility] 132 [facility] [place] [address] Jones Kaur MD [address] [place] [address] 12/24/2023 10:20 AM EDT Office Visit General Internal Medicine [facility] 200 [facility] [place] [address] Mike Maki MD 200 [facility] [place] [address] 04/21/2024 11:00 AM EST Cardiac Studies Cardiac Studies, [facility] 132 [facility] [place] [address] 05/10/2024 11:30 AM EST Office Visit Cardiology, [facility] 132 [place] [address] Prashant Stovall, 132 [facility] [place] [address] 05/24/2024 2:20 PM EST Office Visit Nephrology, [facility] 200 [address] [place], [place] [address] Shar Avelar MD 200 [facility] [place] [address] Health Maintenance Due Date Last Done Comments [...] Comments INR FINGERSTICK, POINT OF CARE STAT 11/04/2023 11:39 AM EDT S/P TAVR (transcatheter aortic valve replacement) Aortic valve stenosis, etiology of cardiac valve disease unspecified Anticoagulation management encounter documented in this encounter Results * INR FINGERSTICK, POINT OF CARE (11/04/2023 11:39 AM EDT) Fingerstick INR 1.7 INR 11:42 AM EDT LABORATORY [place] 56-02 Blood 11/04/2023 11:3 9 AM EDT 11/04/2023 11:42 AM EDT Narrative [facility] 56-02 - 11/04/2023 11:42 AM EDT Therapeutic ranges for non-operative patients: Prophylaxsis/treatment of DVT: (Range:2.0-3.0) Treatment of pulmonary embolism:(Range:2.0-3.0) Prevention of systemic embolism from: -tissue heart valves -acute myocardial infarction -valvular heart disease -atrial fibrillation (Range: 2.0-3.0) Mechanical prosthetic valves: (Range: 2.5-3.5) Benny De Santiago V RP LAB POINT OF CARE TE ST DOCKED DEVICE UNSOLICITED RESULTS [facility] [address] [facility] [address] documented in this encounter Visit Diagnoses Diagnosis S/P TAVR (transcatheter aortic valve replacement)- Primary Heart valve replaced by other means Aortic valve stenosis, etiology of cardiac valve disease unspecified Anticoagulation management encounter Encounter for therapeutic drug monitoring documented in this encounter Advance Directives * [...] Power of Attor iglesia? No Care Teams Dental Appliance Repairer Relationship Specialty Start Date End Date Mike Maki MD 200 [facility] [address] PCP - General Internal Medicine 03/13/11 documented as of this encounter
--- OUTSIDE RECORDS SUMMARY | 2023-12-18 03:55 | External Medical Summary | Summary of Care ---
Author Name Unknown Organization [facility] Address [address] [place] [address] Phone [phone] Care Team Providers Care Taker Off Drying Kiln Name Role Phone Mike Maki MD Primary Care Provider + Reason for Visit * Reason Comments Cystoscopy Encounter Details Date Type Department Care Team (Latest Contact Info) Description 11/06/2023 11:30 AM EDT Procedure Only Urology [address] [address] Chela Branch MD [address] [place] [address] Malignant neoplasm of lateral wall of urinary [...] Oral Tablet (Lipitor)Indicatio ns:Coronary artery disease of [place] artery of [place] heart with stable angina pectoris (HCC) Take [...] artery disease of n ative artery of [place] heart with stable angina pectoris 10/31/2019 S/P [...] uti req 2 weeks iv abt at [facility] due to being cipro resistant. We gave 80mg im gent for prior uti PROCEDURE: Cystoscopy INSTRUMENT: [employer] Flexibile Cystoscope EXTERNAL GENITALIA: Unremarkable. URETHRA: Without [...] 1:40 PM EDT Anticoagulation Pharmacy, Katherine Cota [place] 200 [place] [address] Pharmacist1, [facility] 200 [facility] [place], [place] [address] 11/18/2023 12:10 PM EDT Office Visit Vascular Surgery, [facility] 132 [place] [address] Jones Kaur MD [address] [place] [address] 12/24/2023 10:20 AM EDT Office Visit General Internal Medicine [facility] [address] [place] [address] Mike Maki MD 200 [facility] [place] [address] 04/21/2024 11:00 AM EST Cardiac Studies Cardiac Studies, [facility] 132 [place] [address] 05/10/2024 11:30 AM EST Office Visit Cardiology, [facility] 132 [place] [address] Prashant Stovall, 132 [place] [address] 05/20/2024 1:00 PM EST Procedure Only Urology [facility] [address] [place] [address] Chela Branch MD [address] [place] [address] 05/24/2024 2:20 PM EST Office Visit Nephrology, [facility] [address] [place] [address] Shar Avelar MD 200 [facility] [place] [address] Scheduled Orders Name Type Priority Associated Diagnoses [...] Power of Attor iglesia? No Care Teams Taker Off Drying Kiln Relationship Specialty Start Date End Date Mike Maki MD [address] [place] [address] [place] [address] PCP - General Internal Medicine 03/13/11 documented as of this encounter
--- OUTSIDE RECORDS SUMMARY | 2023-12-18 03:55 | External Medical Summary ---
Author Name Unknown Address Unknown Organization K09:[facility] [place] [place] [place] [address] Laboratory Report Ordering Provider Test Date Status KAREN LUTZ V 11/04/2023 11:39:01 Final Therapeutic ranges for non-o perative patients:
Prophylaxsis/treatment of DVT: (Range:2.0-3.0)
Treatment of pulmonary embolism:(Range:2.0-3.0)
Prevention of systemic embolism from:
-tissue heart valves
-acute myocardial infarction
-valvular heart disease
-atrial fibrillation
(Range: 2.0-3.0)
Mechanical prosthetic valves: (Range: 2.5-3.5) Observation Date Value Abnormality Reference (Units ) Status INR in Capillary blood by Coagulation assay 11/04/2023 11:39:01 1.7 (INR) Final Performing Location [facility] [place] [place] [address]
--- OUTSIDE RECORDS SUMMARY | 2023-12-18 03:55 | External Medical Summary | Summary of Care ---
Author Name Unknown Organization [facility] Address [address] [place] [address] Phone [phone] Care Team Providers Care Frozen Yogurt Maker Name Role Phone Mike Maki MD Primary Care Provider + Reason for Visit * Reason Comments Cystoscopy Encounter Details Date Type Department Care Team (Latest Contact Info) Description 11/06/2023 11:30 AM EDT Procedure Only Urology [address] [address] Chela Branch MD [address] [place] [address] Malignant neoplasm of lateral wall of urinary [...] Oral Tablet (Lipitor)Indicatio ns:Coronary artery disease of [place] artery of [place] heart with stable angina pectoris (HCC) Take [...] artery disease of n ative artery of [place] heart with stable angina pectoris 10/31/2019 S/P [...] uti req 2 weeks iv abt at [facility] due to being cipro resistant. We gave 80mg im gent for prior uti PROCEDURE: Cystoscopy INSTRUMENT: B[employer] Flexibile Cystoscope EXTERNAL GENITALIA: Unremarkable. URETHRA: Without [...] 1:40 PM EDT Anticoagulation Pharmacy, Katherine Cota [place] 200 [place] [address] Pharmacist1, [facility] 200 [facility] [place], [place] [address] 11/18/2023 12:10 PM EDT Office Visit Vascular Surgery, [facility] 132 [place] [address] Jones Kaur MD [address] [place] [address] 12/24/2023 10:20 AM EDT Office Visit General Internal Medicine [facility] [address] [place] [address] Mike Maki MD 200 [place] [address] 04/21/2024 11:00 AM EST Cardiac Studies Cardiac Studies, [facility] 132 [place] [address] 05/10/2024 11:30 AM EST Office Visit Cardiology, [facility] [address] [place] [address] Prashant Stovall, 132 [place] [address] 05/20/2024 1:00 PM EST Procedure Only Urology [facility] 549 [place] [address] Chela Branch MD 549 [place] [address] 05/24/2024 2:20 PM EST Office Visit Nephrology, [facility] [address] [place], [place] [address] Shar Avelar MD 200 [facility] [place] [address] Pending Results Name Type Priority Associated Diagnoses Date /Time CYTOLOGY Pathology Routine Malignant neoplasm of lateral [...] Power of Attor iglesia? No Care Teams Frozen Yogurt Maker Relationship Specialty Start Date End Date Mike Maki MD 200 [place] [address] PCP - General Internal Medicine 03/13/11 documented as of this encounter
[2023-12-18 05:39] LABS: Base Excess ABG -8.4 mEq/L (-9-1.8); HCO3 ABG 20 mmol/L (19-24); Oxygen Saturation ABG 96.7 % (90-95); PCO2 ABG 51 mmHg (35-46); PO2 ABG 79 mmHg (80-95)
--- OUTSIDE RECORDS SUMMARY | 2023-12-18 05:40 | External Medical Summary | Summary of Care ---
Author Name Unknown Organization [facility] Address [address] [place] [address] Phone [phone] Care Team Providers Care Software Quality Tester Name Role Phone Mike Maki MD Primary Care Provider + Reason for Visit * Reason Comments Outpatient Testing Encounter Details Date Type Department Care Team (Late st Contact Info) Description 2023 2:30 PM EDT Laboratory Laboratory, [facility] [address] [facility] [address] [employer] [address] [place] [address] CKD (chronic kidney disease) stage 5, GFR less than 15 ml/min ([facility]); ESRD needing dialysis ([facility]) Allergies Active Allergy Reactions Criticality [...] Oral Tablet (Lipitor)Indicatio ns:Coronary artery disease of [place] artery of [place] heart with stable angina pectoris (HCC) Take [...] with meals. 270 Capsule 3 09/23/2023 Active Additional Information Patient not taking.Reported on 2023 Warfarin Sodium 5 MG Oral Tablet (Coumadin)Indicati [...] artery disease of n ative artery of [place] heart with stable angina pectoris 10/31/2019 S/P [...] mRNA, LNP-s, No Pre serve, 2-Dose Series (Localmint) 09/19/2020,08/29/2020 Hepatitis B, 20+ yrs 01/08/2021,08/08/2020,07/1108/08/2020 PPD [...] No 08/03/2023 Does the household have a [facility] source of income? (Household - for [...] Care Team (Late st Contact Info) Description 2023 3:15 PM EDT Imaging Radiology [facility] [address] [facility] [place] [address] Arrived 12/24/2023 10:10 AM EDT Anticoagulation Pharmacy, [facility] [address] [facility] [place] [address] Pharmacist1, [facility] [address] [place] [address] 12/24/2023 10:20 AM EDT Office Visit General Internal Medicine [facility] [address] [place] [address] Mike Maki MD [address] [facility] [place] [address] 04/21/2024 11:00 AM EST Cardiac Studies Cardiac Studies, [facility] [address] [facility] [place] [address] 05/10/2024 11:30 AM EST Office Visit Cardiology, [address] [place] [address] Prashant Stovall, [address] [place] [address] [place] [address] 05/20/2024 1:00 PM EST Procedure Only Urology [facility] [address] [place] [address] Chela Branch MD [address] [place] [address] 05/24/2024 2:20 PM EST Office Visit Nephrology, [facility] [address] [place] [address] Shar Avelar MD [address] [place] [address] Pending Results Name Type Priority Associated Diagnoses Date /Time BNP, NT-PRO Lab Routine CKD (chronic kidney disease) stage 5, GFR less than 15 ml/min ([facility]) 2023 2:26 PM EDT CBC WITH WBC DIFFERENTIAL Lab Routine CKD (chronic kidney disease) stage 5, GFR less than 15 ml/min (HCC) 2023 2:26 PM EDT RENAL FUNCTION PANEL Lab Routine CKD (chronic kidney disease) stage 5, GFR less than 15 ml/min ([facility]) 2023 2:26 PM EDT IRON SCREEN, INCLUDING TIBC Lab Routine CKD (chronic kidney disease) stage 5, GFR less than 15 ml/min (HCC) 2023 2:26 PM EDT PTH Lab Routine CKD (chronic kidney disease) stage 5, GFR less than 15 ml/min ([facility]) 2023 2:26 PM EDT 25-HYDROXY VITAMIN D Lab Routine CKD (chronic kidney disease) stage 5, GFR less than 15 ml/min (HCC) 2023 2:26 PM EDT MAGNESIUM Lab Routine CKD (chronic kidney disease) stage 5, GFR less than 15 ml/min (HCC) 2023 2:26 PM EDT HEPATITIS B SURFACE ANTIGEN Lab Routine ESRD needing dialysis (HCC) 2023 2:26 PM EDT HEPATITIS B SURFACE ANTIBODY Lab Routine ESRD needing dialysis (HCC) 2023 2:26 PM EDT HEPATITIS B CORE ANTIBODY IGM Lab Routine ESRD needing dialysis (HCC) 2023 2:26 PM EDT HEPATITIS B CORE ANTIBODIES IGG AND IGM Lab Routine ESRD needing dialysis (HCC) 2023 2:26 PM EDT HEPATITIS C ANTIBODY SCREEN WITH PROGRESSION TO HEPATITIS C RNA QUANTITATIVE Lab Routine ESRD needing dialysis ([facility]) 2023 2:26 PM EDT CBC Lab Routine CKD (chronic kidney disease) stage 5, GFR less than 15 ml/min ([facility]) 2023 2:26 PM EDT DIFFERENTIAL, AUTOMATED Lab Routine CKD (chronic kidney disease) stage 5, GFR less than 15 ml/min ([facility]) 2023 2:26 PM EDT HEPATITIS C ANTIBODY Lab Routine ESRD needing dialysis ([facility]) 2023 2:26 PM EDT HEPATITIS C RNA ADD ON Lab Routine ESRD needing dialysis ([facility]) 2023 2:26 PM EDT Health Maintenance Due Date Last [...] as of this encounter Visit Diagnoses Diagnosis CKD (chronic kidney disease) stage 5, GFR less than 15 ml/min (HCC) Chronic kidney disease, Stage V ESRD needing dialysis (HCC) End stage renal disease documented in this encounter Advance Directives * [...] Power of Attor iglesia? No Care Teams Software Quality Tester Relationship Specialty Start Date End Date Mike Maki MD [address] [place] [address] PCP - General Internal Medicine 03/13/11 documented as of this encounter
[2023-12-18 05:43] LABS: Basophils # (auto) 0.05 K/uL (0.00-0.20); Basophils % (auto) 0.5 %; Eosinophils # (auto) 0.04 K/uL (0.00-0.50); Eosinophils % (auto) 0.4 %; Hematocrit (blood only) 29.1 % (42.0-52.0); Hemoglobin 8.5 g/dl (14.0-18.0); Immature Granulocytes # (auto) 0.07 K/uL (0.01-0.20); Immature Granulocytes % (auto) 0.6 %; Lymphocytes # (auto) 0.68 K/uL (1.20-3.40); Lymphocytes % (auto) 6.2 %; Mean Corpuscular Hemoglobin 29.8 pg (25.0-34.0); Mean Corpuscular Hgb Conc 29.2 g/dL (32.0-36.0); Mean Corpuscular Volume 102.1 fL (80.0-100.0); Mean Platelet Volume 10.1 fL (9.4-12.4); Monocytes % (auto) 12.8 %; Neutrophils # (auto) 8.73 K/uL (1.40-6.50); Neutrophils % (auto) 79.5 %; Nucleated RBC # (auto) 0.03 K/uL (0.00-0.12); Nucleated RBC % (auto) 0.3 %; Platelet Count 214 K/uL (130-400); RDW Coefficient of Variation 14.8 % (11.5-14.5); RDW Standard Deviation 55.8 fL (36.4-46.3); Red Blood Count 2.85 M/uL (4.70-6.10); White Blood Count 10.97 K/ul (4.8-10.8)
[2023-12-18 05:57] LABS: Albumin Globulin Ratio 1.1 (0.9-2); Albumin Level 3.1 gm/dl (3.4-5.0); BUN Creatinine Ratio 13.1 (10-20); Bilirubin,Total 0.4 mg/dl (0.2-1.0); Creatinine Clr Calc Pharmacy 8.6 ml/min; Est GFR (African American) 6.9 ml/min; Est GFR (Non-African American) 5.9 ml/min; Globulin 2.9 gm/dl (2.5-4.0); Magnesium 2.4 mg/dl (1.7-2.4); Phosphorus 7.3 mg/dl (2.5-4.9); Potassium 5.5 mmol/L (3.5-5.1)
[2023-12-18 06:04] LABS: INR 2.1 (0.9-1.1); Prothrombin Time 21.6 Seconds (9.0-12.0)
[2023-12-18 06:36] LABS: Allen Test Pos (Pos)
[2023-12-18] MEDS: CALCIUM GLUCONATE 1,000 MG/60 ML BAG IV STA (08:39)
[2023-12-18] MEDS: INSULIN HUMAN REGULAR PER UNIT 5 UNITS in SYRINGE 4.95 ML IV STA (08:39)
[2023-12-18] MEDS: BETAMETHASONE DIP AUG (DIPROLENE) 0.05% CR 15 GM TUBE EXT SCH (08:42)
[2023-12-18] MEDS: CALCITRIOL 0.25 MCG CAPSULE PO SCH (08:43)
[2023-12-18] MEDS: DEXTROSE 50% 50 ML SYRINGE IV STA (08:49)
[2023-12-18] MEDS: FUROSEMIDE 40 MG/4 ML VIAL IV SCH (08:53)
--- NOTE | 2023-12-18 09:29 | Nephrology Consultation ---
Date of Consultation December 18, 2023 Assessment & Plan (1) CKD (chronic kidney disease) stage 5, GFR less than 15 ml/min: longstanding CKD 5 now presenting w/ acute respiratory failure, volume overload, and metabolic encephalopathy > needs urgent dialysis for volume management and clearance of uremic toxins Extensive discussion w/ pt and his about risks benefits alternatives to urgent dialysis start; consent for dialysis obtained and on the chart. after review w/ vascular surgery and dialysis nurse, attempted to cannulate AVF > it is still quite new and unfortunately did not run for more than several minutes; therefore moved on to [facility] today; vascular assistance w/ dialysis access much appreciated. Care coordinated with hospitalist, vascular, pulmonary services. >continue phoslo, rocaltrol, IV lasix current doses -will hold amlodipine and lokelma -when taking po, dialysis diet pls w/ FR 1.5L -daily BMP, CBC Given prior hx of longstanding CKD, would consider this ESRD w/ dialysis dependence > recommend starting arrangements for in center HD at [facility] w/ Dr Avelar; oriented ultimately to HHD. (2) Acute respiratory failure with hypoxia and hypercapnia: from pneumonia and volume overload as per hospitalist and pulmonary (3) Metabolic encephalopathy: should improve w/ HD and w/ treatment of pneumonia. -f/u pending cultures >> NOTE no bacteria on admission UA which is good news History of Present Illness Reason for Consultation: CKD 5 w/ acute respiratory failure, hyperkalemia Requesting Physician: Dr Flynn Attending Physician: Etelvina Odell MD History of Present Illness 78 y/o M whom I'm asked to see for CKD 5 w/ acute respiratory failure and hyperkalemia was admitted last evening with acute hypoxic hypercarbic respiratory failure with multifocal pneumonia and respiratory acidosis w/ metabolic encephalopathy after being sent to ER by his OP fruit packer face and fill based on labs and lethargy, malaise at acute nephro clinic visit. PMH longstanding CKD 5 from obstructive uropathy and cardiorenal syndrome, s/p AVF creation 11/24/23, CAD w/ L circ stent, aortic stenosis s/p TAVR, HTN, DM2,HL. He has had a GFR of about 8-9 and creatinine in low to mid 6s for the past year or so>> longstanding progressive CKD, not a transplant candidate d/t iliac calcifications and pseudomonal bladder colonization. Pt reported to be more confused and lethargic for several days prior to presentation, also more dyspneic though no cough, no f/c. O2 sats 65% in triage, improved oxymask and ultimately w/ bipap. He had 13K WBC and CT chest w/ multifocal PNA +/- pulmonary edema > he was started on levaquin. Initial pH of 7.18 w/ combined metabolic, respiratory acidosis, K 5.4. he has had 2 doses of 40 mg IV lasix. he was started on tid lokelma. On evaluation w/ pt and this am he was on 02NC; he endorsed ongoing dyspnea but no chest pain, palpitations, edema, or urinary retention symptoms. no n/v/d/c/ abd pain. He is hard of hearing and has some psychomotor slowing. Allergies Allergy/AdvReac Type Severity Reaction Status Date / Time cephalexin Allergy Severe Tongue and Verified 11/24/23 07:00 face swelling tamsulosin Allergy Severe angioedema Verified 11/24/23 07:00 Home Medications Medication Instructions Recorded Confirmed Type amlodipine 5 mg tablet 5 mg PO HS 07/26/18 12/17/23 History atorvastatin 80 mg tablet 80 mg PO HS 07/01/22 12/17/23 History finasteride 5 mg tablet 5 mg PO HS 07/01/22 12/17/23 History aspirin 81 mg chewable tablet 81 mg PO HS 07/04/22 12/17/23 History [id number]-FA 1 mg 1 tab PO HS 07/04/22 12/17/23 History tablet calcitriol 0.5 mcg capsule 0.5 mcg PO 3XWK 04/28/23 12/17/23 History calcium acetate(phosphat bind) 667 667 mg PO TID 12/17/23 12/17/23 History mg capsule ciprofloxacin HCl 500 mg tablet 500 mg PO DAILY 12/17/23 12/17/23 History fluocinonide 0.05 % topical 0.05 applic topical DAILY 12/17/23 12/17/23 History solution torsemide 20 mg tablet 20 mg PO DAILY 12/17/23 12/17/23 History triamcinolone acetonide 0.1 % 0.1 applic topical BID 12/17/23 12/17/23 History topical cream warfarin 5 mg tablet 5 mg PO DAILY 12/17/23 12/17/23 History Patient History Medical History (Updated 12/18/23 @ 13:49 by Zane Foote MD) Anemia Gastric nodule Type 2 diabetes mellitus NIDDM Bifascicular block ongoing since 2010 Umbilical hernia chronic per patient-denies change or worsening History of blood transfusion pre-op aortic valve replacement CAD (coronary artery disease) s/p 1 stent in 2019 HTN (hypertension) controlled, stable per pt History of diverticulitis entered into EMR 09/2022-patient states last flare was 1 year ago History of colon polyps BPH (benign prostatic hyperplasia) CKD (chronic kidney disease), stage V Arthritis Hx of bladder cancer surgery only Hyperlipidemia Surgical History History of cataract surgery left and right H/O cystoscopy History of tooth extraction Aortic valve replaced 2019 at [facility] (followed by Dr. eWi) History of heart artery stent 1 stent placed 2018 History of orchiectomy, unilateral History of arthroscopy of left knee History of colonoscopy Family History Mother Family history of diabetes mellitus Father Family hx of colon cancer Other No family history of adverse response to anesthesia Social History Smoking Status: Never smoker Tobacco Type: Cigarettes Second Hand Exposure: No; Do You Dip or Chew Tobacco: No; Tobacco Cessation Education Requested by Patient: No Hx Alcohol Use: No Hx Substance Use: No Preferred Language: Urdu Communication Ability: Effective Licensed And Certified Midwife Required: No Beliefs That Will Affect Care: None Current Living Situation: Spouse Other Information That Helps Us Care for You: No Feels Safe at Home: Yes Safety Concerns: Feels Safe At This Time Assistive Devices: Cane Review of Systems 2 Review of Systems: All systems reviewed & are unremarkable except as noted in HPI & below Physical Exam 2 Constitutional: well developed and well nourished Eyes: EOM intact bilaterally ENMT: Ears: no external ear abnormality Nose: no external nose abnormality Mouth: + dry oral mucous membranes Neck: no nuchal rigidity Respiratory: normal respiratory effort Auscultation: + diminished lung sounds Gastrointestinal (Abdomen): Inspection/Auscultation: normal bowel sounds P ercussion/Palpation: abdomen soft; abdomen nontender Musculoskeletal: Extremities: strength 5/5 throughout Skin: no rashes, warm and dry Neurologic: ford, fluent speech, no tremor Results & Data Vital Signs (Past 12 Hours) Vital Signs Temp Pulse Pulse Resp BP Pulse Ox O2 Del Method 12/18/23 08:19 36.9 C 80 19 109/65 91 High Flow Nasal Cannula 12/18/23 07:34 73 16 93 12/18/23 03:15 76 24 93 12/18/23 03:09 36.8 C 74 18 115/68 95 BiPAP 12/18/23 00:09 36.9 C 78 23 119/68 93 BiPAP 12/17/23 23:21 77 12/17/23 22:16 84 23 95 12/17/23 22:01 80 12/17/23 21:54 BiPAP 12/17/23 21:50 37.0 C 81 18 111/58 L 95 BiPAP O2 Flow Rate FiO2 12/18/23 08:19 10 12/18/23 07:34 50 12/18/23 03:15 50 12/18/23 03:09 12/18/23 00:09 50 12/17/23 23:21 12/17/23 22:16 50 12/17/23 22:01 12/17/23 21:54 50 12/17/23 21:50 Laboratory Results 12/18/23 05:22 12/18/23 05:22 ABG 7.18/ 57/73/ 21 1900; 0500 ABG reviewed INR 2.[address] chest non con (images reviewed personally and agree w/ report) 1. Diffuse bilateral airspace opacities bilaterally are concerning for atypical infection and/or aspiration. Cannot exclude superimposed pulmonary edema. 2. Small bilateral pleural effusions. TTE severe mitral annular calcification no pericardial effusion; EF 65% grade 1 diastolic dysfunction
--- NOTE | 2023-12-18 09:46 | Hospitalist Progress Note ---
Date of Service December 18, 2023 Assessment & Plan (1) Acute respiratory failure with hypoxia and hypercapnia: (2) Multifocal pneumonia: (3) CKD (chronic kidney disease) stage 5, GFR less than 15 ml/min: (4) BPH (benign prostatic hyperplasia): (5) Hypertension: (6) CAD (coronary artery disease): (7) Anticoagulated on Coumadin: (8) Metabolic encephalopathy: (9) Acidosis: Plan 77 year old male who presented to the ED with weakness and shortness of breath Acute hypoxic and hypercarbic respiratory failure Multifocal pneumonia Metabolic acidosis Worsening renal disease, CKD 5 Hyperkalemia On admission, ABG 7.18/73/57 WBC 13, Hb 9.6, K 5.4, Cr 7.1, Trop -88.4->>116->100. Procal 0.7 RVP is negative CXR with multifocal PNA. CT chest showed diffuse bilateral airspace opacities concerning for atypical infection and or aspiration, small bilateral pleural effusion Got BIPAP in ER Currently on Levofloxacin, flagyl Has allergy to cephalosporins Pulm recs noted Worsening renal function, worsening metabolic acidosis, hyperphosphatemia Had extensive conversation with Nephrology, patient and . Patient needs starting HD earlier rather than later. [employer] noted inability to use recent AVF and consulted Vascular surgeon for HD catheter placement Considering patient's INR of 2.1 as he is on warfarin at home, consent and order for FFP ordered for procedure TTE ordered per Nephro request Will get HD per Nephro after catheter placmeent History of TAVR for severe INR is 2.1 today Continue warfarin and monitor INR BPH s/p TURP Continue finasteride Elevated trop Due to demand ischemia in setting of worsening renal function HTN Currently on amlodipine DVT ppx- on warfarin I spent a total of 65 minutes coordinating, documenting and providing care for this patient excluding time spent in performance of separately billed services Admission and Anticipated Discharge Date Admission Date: December 17, 2023 Subjective Patient seen and examined Reports cough, shortness of breath Reports weakness Denied chest pain, nausea, vomiting Patient has a LUE fistula reported this was placed 2 weeks ago in preparation for HD Still makes urine Denied chills, abd pain, dysuria, freq, urgency Physical Exam Constitutional: + ill appearing and + well hydrated; no acute distress Eyes: PERRL, conjunctivae normal, anicteric sclerae ENMT: +hearing deficits Respiratory: normal respiratory effort +rhonchi. Diminished breath sounds. on N C Cardiovascular: Rate/Rhythm: regular rate and regular rhythm Gastrointestinal (Abdomen): normal bowel sounds, soft, nontender, no hepatosplenomegaly Neurologic: PERRL, EOMI, accommodation nl, no face palsy, no dysarthria Psychiatric: A+Ox3, euthymic affect Genitourinary: Contreras in situ Results & Data Results & Data Vital Signs (Past 12 Hours) Vital Signs Temp Pulse Pulse Resp BP Pulse Ox O2 Del Method 12/18/23 08:19 36.9 C 80 19 109/65 91 High Flow Nasal Cannula 12/18/23 07:34 73 16 93 12/18/23 03:15 76 24 93 12/18/23 03:09 36.8 C 74 18 115/68 95 BiPAP 12/18/23 00:09 36.9 C 78 23 119/68 93 BiPAP 12/17/23 23:21 77 12/17/23 22:16 84 23 95 12/17/23 22:01 80 12/17/23 21:54 BiPAP 12/17/23 21:50 37.0 C 81 18 111/58 L 95 BiPAP O2 Flow Rate FiO2 12/18/23 08:19 10 12/18/23 07:34 50 12/18/23 03:15 50 12/18/23 03:09 12/18/23 00:09 50 12/17/23 23:21 12/17/23 22:16 50 12/17/23 22:01 12/17/23 21:54 50 12/17/23 21:50 Laboratory Results Abnormal lab results 12/17/23 12/17/23 12/17/23 Range/Units 16:51 18:51 19:18 WBC 13.80 H (4.8-10.8) K/ul RBC 3.18 L (4.70-6.10) M/uL Hgb 9.6 L (14.0-18.0) g/dl POC Hgb 9.2 L (14.0-18.0) g/dl Hct 31.8 L (42.0-52.0) % POC Hct 27 L (42-52) % MCV (80.0-100.0) fL MCHC 30.2 L (32.0-36.0) g/dL RDW Std Deviation 55.0 H (36.4-46.3) fL RDW Coeff of Grace 14.9 H (11.5-14.5) % Neut # (Auto) 10.70 H (1.40-6.50) K/uL Lymph # (Auto) 1.01 L (1.20-3.40) K/uL [place] # (Auto) 1.90 H (0.11-0.59) K/uL PT 19.2 H (9.0-12.0) Seconds INR 1.9 H (0.9-1.1) POC pH 7.18 L* (7.35-7.45) POC pCO2 57 H (35-46) mmHg POC pO2 73 L (80-95) mmHg POC Total CO2 23 L (24-31) mmol/L ABG pH 7.20 L (7.35-7.45) ABG pCO2 52 H (35-46) mmHg ABG pO2 73 L (80-95) mmHg POC ABG O2 Sat 89.0 L (90-95) % ABG O2 Saturation 95.8 H (90-95) % VBG pH 7.16 L (7.36-7.41) VBG pCO2 58 H (38-50) mmHg POC Potassium 5.2 H (3.3-5.0) mmol/L Potassium 5.4 H (3.5-5.1) mmol/L Chloride 109 H (98-107) mmol/L Carbon Dioxide (21-32) mmol/L BUN 97 H (6-23) mg/dl Creatinine 7.10 H* (0.6-1.4) mg/dl Glucose 163 H (70-99(Fasting)) mg/dl POC Glucose (70-99) mg/dl Phosphorus 5.8 H (2.5-4.9) mg/dl AST 12 L (13-39) U/L Troponin I High Sens 88.4 H* 92.6 H* (0-20) pg/ml B-Natriuretic Peptide 587 H (0-100) pg/ml Albumin (3.4-5.0) gm/dl Procalcitonin 0.71 H (0-0.5) ng/ml Urine Appearance (Clear) Urine Protein (Negative) Urine Blood (Negative) Ur Leukocyte Esterase (Negative) Urine WBC (Auto) (0-5) /hpf U Hyaline Cast (Auto) (0-2) /lpf 12/17/23 12/17/23 12/17/23 Range/Units 20:53 22:26 22:37 WBC (4.8-10.8) K/ul RBC (4.70-6.10) M/uL Hgb (14.0-18.0) g/dl POC Hgb (14.0-18.0) g/dl Hct (42.0-52.0) % POC Hct (42-52) % MCV (80.0-100.0) fL MCHC (32.0-36.0) g/dL RDW Std Deviation (36.4-46.3) fL RDW Coeff of Grace (11.5-14.5) % Neut # (Auto) (1.40-6.50) K/uL Lymph # (Auto) (1.20-3.40) K/uL [place] # (Auto) (0.11-0.59) K/uL PT (9.0-12.0) Seconds INR (0.9-1.1) POC pH (7.35-7.45) POC pCO2 (35-46) mmHg POC pO2 (80-95) mmHg POC Total CO2 (24-31) mmol/L ABG pH 7.19 L* (7.35-7.45) ABG pCO2 54 H (35-46) mmHg ABG pO2 78 L (80-95) mmHg POC ABG O2 Sat (90-95) % ABG O2 Saturation 96.7 H (90-95) % VBG pH (7.36-7.41) VBG pCO2 (38-50) mmHg POC Potassium (3.3-5.0) mmol/L Potassium (3.5-5.1) mmol/L Chloride (98-107) mmol/L Carbon Dioxide (21-32) mmol/L BUN (6-23) mg/dl Creatinine (0.6-1.4) mg/dl Glucose (70-99(Fasting)) mg/dl POC Glucose (70-99) mg/dl Phosphorus (2.5-4.9) mg/dl AST (13-39) U/L Troponin I High Sens 116.1 H* D (0-20) pg/ml B-Natriuretic Peptide (0-100) pg/ml Albumin (3.4-5.0) gm/dl Procalcitonin (0-0.5) ng/ml Urine Appearance Turbid A (Clear) Urine Protein 2+ H (Negative) Urine Blood 1+ H (Negative) Ur Leukocyte Esterase 3+ H (Negative) Urine WBC (Auto) >50 H (0-5) /hpf U Hyaline Cast (Auto) 6-10 H (0-2) /lpf 12/17/23 12/18/23 12/18/23 Range/Units 22:50 05:22 05:25 WBC 10.97 H (4.8-10.8) K/ul RBC 2.85 L (4.70-6.10) M/uL Hgb 8.5 L (14.0-18.0) g/dl POC Hgb (14.0-18.0) g/dl Hct 29.1 L (42.0-52.0) % POC Hct (42-52) % MCV 102.1 H (80.0-100.0) fL MCHC 29.2 L (32.0-36.0) g/dL RDW Std Deviation 55.8 H (36.4-46.3) fL RDW Coeff of Grace 14.8 H (11.5-14.5) % Neut # (Auto) 8.73 H (1.40-6.50) K/uL Lymph # (Auto) 0.68 L (1.20-3.40) K/uL [place] # (Auto) 1.40 H (0.11-0.59) K/uL PT 21.6 H (9.0-12.0) Seconds INR 2.1 H (0.9-1.1) POC pH (7.35-7.45) POC pCO2 (35-46) mmHg POC pO2 (80-95) mmHg POC Total CO2 (24-31) mmol/L ABG pH 7.24 L 7.20 L (7.35-7.45) ABG pCO2 47 H 51 H (35-46) mmHg ABG pO2 76 L 79 L (80-95) mmHg POC ABG O2 Sat (90-95) % ABG O2 Saturation 96.8 H 96.7 H (90-95) % VBG pH (7.36-7.41) VBG pCO2 (38-50) mmHg POC Potassium (3.3-5.0) mmol/L Potassium 5.5 H (3.5-5.1) mmol/L Chloride 109 H (98-107) mmol/L Carbon Dioxide 19 L (21-32) mmol/L BUN 102 H (6-23) mg/dl Creatinine 7.80 H* D (0.6-1.4) mg/dl Glucose 104 H (70-99(Fasting)) mg/dl POC Glucose (70-99) mg/dl Phosphorus 7.3 H (2.5-4.9) mg/dl AST 9 L (13-39) U/L Troponin I High Sens 100.1 H* (0-20) pg/ml B-Natriuretic Peptide (0-100) pg/ml Albumin 3.1 L (3.4-5.0) gm/dl Procalcitonin (0-0.5) ng/ml Urine Appearance (Clear) Urine Protein (Negative) Urine Blood (Negative) Ur Leukocyte Esterase (Negative) Urine WBC (Auto) (0-5) /hpf U Hyaline Cast (Auto) (0-2) /lpf 12/18/23 Range/Units 15:17 WBC (4.8-10.8) K/ul RBC (4.70-6.10) M/uL Hgb (14.0-18.0) g/dl POC Hgb (14.0-18.0) g/dl Hct (42.0-52.0) % POC Hct (42-52) % MCV (80.0-100.0) fL MCHC (32.0-36.0) g/dL RDW Std Deviation (36.4-46.3) fL RDW Coeff of Grace (11.5-14.5) % Neut # (Auto) (1.40-6.50) K/uL Lymph # (Auto) (1.20-3.40) K/uL [place] # (Auto) (0.11-0.59) K/uL PT (9.0-12.0) Seconds INR (0.9-1.1) POC pH (7.35-7.45) POC pCO2 (35-46) mmHg POC pO2 (80-95) mmHg POC Total CO2 (24-31) mmol/L ABG pH (7.35-7.45) ABG pCO2 (35-46) mmHg ABG pO2 (80-95) mmHg POC ABG O2 Sat (90-95) % ABG O2 Saturation (90-95) % VBG pH (7.36-7.41) VBG pCO2 (38-50) mmHg POC Potassium (3.3-5.0) mmol/L Potassium (3.5-5.1) mmol/L Chloride (98-107) mmol/L Carbon Dioxide (21-32) mmol/L BUN (6-23) mg/dl Creatinine (0.6-1.4) mg/dl Glucose (70-99(Fasting)) mg/dl POC Glucose 112 H (70-99) mg/dl Phosphorus (2.5-4.9) mg/dl AST (13-39) U/L Troponin I High Sens (0-20) pg/ml B-Natriuretic Peptide (0-100) pg/ml Albumin (3.4-5.0) gm/dl Procalcitonin (0-0.5) ng/ml Urine Appearance (Clear) Urine Protein (Negative) Urine Blood (Negative) Ur Leukocyte Esterase (Negative) Urine WBC (Auto) (0-5) /hpf U Hyaline Cast (Auto) (0-2) /lpf
[2023-12-18] MEDS: ALBUT/IPRATROP 3MG/0.5MG NEB 3 ML VIAL NEB PRN (10:03)
--- NOTE | 2023-12-18 10:28 | Pulmonary Consultation ---
Date of Consultation December 18, 2023 Assessment & Plan (1) Multifocal pneumonia: (2) Acute respiratory failure with hypoxia and hypercapnia: (3) Acidosis: Plan Impression: 78-year-old male with end-stage renal disease now with multifocal airspace opacities concerning for potential multifocal pneumonia and progressive metabolic and respiratory acidosis. Recommendations: 1. Multifocal pneumonia: Agree with antibiotics in the form of levofloxacin dosed for creatinine clearance. There may be a component of fluid overload contributing to the radiographic abnormalities as well which would be addressed by renal replacement therapy. 2. Acute on chronic hypoxemic and hypercarbic respiratory failure: Will defer bicarb support to nephrology. Anticipate this should get better with dialysis. Elevated CO2 levels may be secondary to underlying lung disease and outpatient pulmonary function testing and polysomnography might be appropriate. Would continue noninvasive positive pressure ventilation if the patient should develop encephalopathy or signs or symptoms referable to hypercarbia but currently he is awake alert conversant and in no distress so would hold off on noninvasive positive pressure ventilation currently. 3. Significant metabolic acidosis and need for potential dialysis. Discussed with nephrology. Negative see whether or not vascular surgery can place a tunneled catheter. If not, would be happy to assist with placement of a temporary line. The patient's INR would need to be reversed down below 1.5. Discussed with hospitalist and with nephrology. If they would like us to place a line today, patient will need FFP and I can be contacted by the nurse or the primary admitting service to let me know when the FFP is running and will try and place an ultrasound-guided temporary HD line. The above recommendations and plan were extensively discussed with the patient as well as with the primary admitting service and bedside nurse. Questions were answered to the best my ability and they expressed understanding and are in agreement plan History of Present Illness Attending Physician: Etelvina Odell MD History of Present Illness Asked by hospitalist to assist in evaluation management this patient with multifocal airspace opacities consistent with pneumonia as well as acute on chronic hypercarbic respiratory failure. History is obtained from discussion with the patient as well as review the electronic medical record. Patient is a 78-year-old male with a history of stage V chronic kidney disease. He had a fistula placed several weeks ago which is not yet mature. He is followed by [facility] nephrology. Patient also has a history of undergoing TAVR. He was seen in the emergency room yesterday evening with complaints of shortness of breath and lethargy. He does not report any cough or sputum production or ill contacts. No fevers chills or night sweats. He was found to have an elevated white blood cell count as well as a metabolic and respiratory acidosis with a initial pH of 7.18 and a CO2 of 57. Procalcitonin was elevated at 0.71 and BNP was elevated at 587. He received IV Levaquin and was placed on BiPAP. This morning when I assessed him he is on a nasal cannula. He reports that his sensorium is clearing. He is not complaining of any sputum production but does feel that he is congested in his chest. He is not having any chest pain or palpitations. He is concerned about antibiotics adversely affecting his kidney function. He denies any prior history of sleep disordered breathing or sleep apnea but is never been assessed for such. He tolerated BiPAP quite well last evening. Allergies Allergy/AdvReac Type Severity Reaction Status Date / Time cephalexin Allergy Severe Tongue and Verified 11/24/23 07:00 face swelling tamsulosin Allergy Severe angioedema Verified 11/24/23 07:00 Home Medications Medication Instructions Recorded Confirmed Type amlodipine 5 mg tablet 5 mg PO HS 07/26/18 12/17/23 History atorvastatin 80 mg tablet 80 mg PO HS 07/01/22 12/17/23 History finasteride 5 mg tablet 5 mg PO HS 07/01/22 12/17/23 History aspirin 81 mg chewable tablet 81 mg PO HS 07/04/22 12/17/23 History [id number] 1 mg 1 tab PO HS 07/04/22 12/17/23 History tablet calcitriol 0.5 mcg capsule 0.5 mcg PO 3XWK 04/28/23 12/17/23 History calcium acetate(phosphat bind) 667 667 mg PO TID 12/17/23 12/17/23 History mg capsule ciprofloxacin HCl 500 mg tablet 500 mg PO DAILY 12/17/23 12/17/23 History fluocinonide 0.05 % topical 0.05 applic topical DAILY 12/17/23 12/17/23 History solution torsemide 20 mg tablet 20 mg PO DAILY 12/17/23 12/17/23 History triamcinolone acetonide 0.1 % 0.1 applic topical BID 12/17/23 12/17/23 History topical cream warfarin 5 mg tablet 5 mg PO DAILY 12/17/23 12/17/23 History Patient History Medical History Gastric nodule Type 2 diabetes mellitus NIDDM Bifascicular block ongoing since 2010 Umbilical hernia chronic per patient-denies change or worsening History of blood transfusion pre-op aortic valve replacement CAD (coronary artery disease) s/p 1 stent in 2019 HTN (hypertension) controlled, stable per pt History of diverticulitis entered into EMR 09/2022-patient states last flare was 1 year ago History of colon polyps BPH (benign prostatic hyperplasia) CKD (chronic kidney disease), stage V Arthritis Hx of bladder cancer surgery only Hyperlipidemia Surgical History History of cataract surgery left and right H/O cystoscopy History of tooth extraction Aortic valve replaced [facility] at [facility] (followed by Dr. Wei) History of heart artery stent 1 stent placed 2018 History of orchiectomy, unilateral History of arthroscopy of left knee History of colonoscopy Family History Mother Family history of diabetes mellitus Father Family hx of colon cancer Other No family history of adverse response to anesthesia Social History Smoking Status: Never smoker Tobacco Type: Cigarettes Second Hand Exposure: No; Do You Dip or Chew Tobacco: No; Tobacco Cessation Education Requested by Patient: No Hx Alcohol Use: No Hx Substance Use: No Preferred Language: [place]dean Communication Ability: Effective Space Engineer Required: No Beliefs That Will Affect Care: None Current Living Situation: Spouse Other Information That Helps Us Care for You: No Feels Safe at Home: Yes Safety Concerns: Feels Safe At This Time Assistive Devices: Walker Review of Systems Review of Systems: Please refer to admission H&P. No additions or deletions Physical Exam Constitutional: well developed and well nourished Eyes: EOM intact bilaterally ENMT: Nose: no external nose abnormality Mouth: + dry oral mucous membranes Neck: no nuchal rigidity Respiratory: normal respiratory effort Auscultation: + diminished lung sounds Cardiovascular: Rate/Rhythm: not tachycardic Heart Sounds: normal S1, normal S2 and + murmur Extremities: + edema Gastrointestinal (Abdomen): Inspection/Auscultation: normal bowel sounds Percussion/Palpation: abdomen soft; abdomen nontender Skin: no rashes, warm and dry Neurologic: ford, fluent speech, no tremor Results & Data Results & Data Vital Signs (Past 12 Hours) Vital Signs Temp Pulse Pulse Resp BP Pulse Ox O2 Del Method 12/18/23 08:19 36.9 C 80 19 109/65 91 High Flow Nasal Cannula 12/18/23 07:34 73 16 93 12/18/23 03:15 76 24 93 12/18/23 03:09 36.8 C 74 18 115/68 95 BiPAP 12/18/23 00:09 36.9 C 78 23 119/68 93 BiPAP 12/17/23 23:21 77 O2 Flow Rate FiO2 12/18/23 08:19 10 12/18/23 07:34 50 12/18/23 03:15 50 12/18/23 03:09 12/18/23 00:09 50 12/17/23 23:21 Critical Care Results & Data Vital Signs (Past 12 Hours) Vital Signs Temp Pulse Pulse Resp BP Pulse Ox O2 Del Method 12/18/23 10:21 73 12/18/23 08:19 36.9 C 80 19 109/65 91 High Flow Nasal Cannula 12/18/23 07:34 73 16 93 12/18/23 03:15 76 24 93 12/18/23 03:09 36.8 C 74 18 115/68 95 BiPAP 12/18/23 00:09 36.9 C 78 23 119/68 93 BiPAP 12/17/23 23:21 77 O2 Flow Rate FiO2 12/18/23 10:21 12/18/23 08:19 10 12/18/23 07:34 50 12/18/23 03:15 50 12/18/23 03:09 12/18/23 00:09 50 12/17/23 23:21 Lab & Micro Results (Past 24 Hours) RBC 2.85 M/uL (4.70-6.10) L 12/18/23 WBC 10.97 K/ul (4.8-10.8) H 12/18/23 Hgb 8.5 g/dl (14.0-18.0) L 12/18/23 Hct 29.1 % (42.0-52.0) L 12/18/23 MCV 102.1 fL (80.0-100.0) H 12/18/23 MCH 29.8 pg (25.0-34.0) 12/18/23 MCHC 29.2 g/dL (32.0-36.0) L 12/18/23 RDW Standard Deviation 55.8 fL (36.4-46.3) H 12/18/23 RDW Coefficient of Variation 14.8 % (11.5-14.5) H 12/18/23 Plt Count 214 K/uL (130-400) 12/18/23 MPV 10.1 fL (9.4-12.4) 12/18/23 Nucleated Red Blood Cells % (auto) 0.3 % 12/17 Nucleated RBC Absolute Count (auto) 0.03 K/uL (0.00-0.12) 0 12/18/23 Neutrophils (%) (Auto) 79.5 % 12/18/23 Lymphocytes (%) (Auto) 6.2 % 12/18/23 Monocytes # (Auto) 1.40 K/uL (0.11-0.59) H 12/18/23 Eosinophils # (Auto) 0.04 K/uL (0.00-0.50) 12/18/23 Immature Granulocyte % (Auto) 0.6 % 12/18/23 Neutrophils # (Auto) 8.73 K/uL (1.40-6.50) H 12/18/23 Lymphocytes # (Auto) 0.68 K/uL (1.20-3.40) L 12/18/23 Monocytes # (Auto) 1.40 K/uL (0.11-0.59) H 12/18/23 Eosinophils # (Auto) 0.04 K/uL (0.00-0.50) 12/18/23 Basophils # (Auto) 0.05 K/uL (0.00-0.20) 12/18/23 Immature Granulocyte # (Auto) 0.07 K/uL (0.01-0.20) 4 Na 138 mmol/L (136-145) 12/18/23 K 5.5 mmol/L (3.5-5.1) H 12/18/23 Cl 109 mmol/L (98-107) H 12/18/23 CO2 19 mmol/L (21-32) L 12/18/23 Anion Gap 10 (3-11) 12/18/23 BUN 102 mg/dl (6-23) H 12/18/23 Creatinine 7.80 mg/dl (0.6-1.4) H* 12/18/23 Estimated GFR ( Amer) 6.9 ml/min 12/18/23 Estimated GFR (Non-Af Amer) 5.9 ml/min 12/18/23 BUN/Creatinine Ratio 13.1 (10-20) 12/18/23 Glu 104 mg/dl (70-99(Fasting)) H 12/18/23 Ca 10.0 mg/dl (8.6-10.3) 12/18/23 Phosphorus Level 7.3 mg/dl (2.5-4.9) H 12/18/23 Total Bilirubin 0.4 mg/dl (0.2-1.0) 12/18/23 Direct Bilirubin 0.2 mg/dl (0-0.2) 12/17/23 AST 9 U/L (13-39) L 12/18/23 ALT 7 U/L (7-52) 12/18/23 Alkaline Phosphatase 73 U/L (34-104) 12/18/23 TP 6.0 gm/dl (6.0-8.3) 12/18/23 Albumin 3.1 gm/dl (3.4-5.0) L 12/18/23 Globulin 2.9 gm/dl (2.5-4.0) 12/18/23 Albumin/Globulin Ratio 1.1 (0.9-2) 12/18/23 Mg 2.4 mg/dl (1.7-2.4) 12/18/23 05:22 Calcium Level 10.0 mg/dl (8.6-10.3) 12/18/23 05:22 Prothromb Time International Ratio 2.1 (0.9-1.1) H 12/18/23 05 :22 Venous Blood pH 7.16 (7.36-7.41) L 12/17/23 16:51 Venous Blood Partial Pressure CO2 58 mmHg (38-50) H 12/17/23 16 :51 Venous Blood Partial Pressure O2 64 mmHg 12/17/23 16:51 Venous Blood HCO3 21 mmol/L 12/17/23 16:51 Venous Blood Base Excess -8.6 mEq/L 12/17/23 16:51 Venous Blood Oxygen Saturation 90.4 % 12/17/23 16:51 Arterial Blood pH 7.20 (7.35-7.45) L 12/18/23 05:25 Arterial Blood Partial Pressure CO2 51 mmHg (35-46) H 12/18/23 05:25 Arterial Blood Partial Pressure O2 79 mmHg (80-95) L 12/18/23 0 5:25 Arterial Blood HCO3 20 mmol/L (19-24) 12/18/23 05:25 Arterial Blood Base Excess -8.4 mEq/L (-9-1.8) 12/18/23 05:25 Arterial Blood Oxygen Saturation 96.7 % (90-95) H 12/18/23 05:2 5 Blood Gas Oxygen Given 10 12/18/23 05:25 Eddie Test Pos (Pos) 12/18/23 05:25 Diagnostic Findings (Past 24 Hours) Chest X-Ray 12/17/23 16:47 XR chest 1V portable CLINICAL HISTORY: Sepsis TECHNIQUE: Single frontal radiograph of the chest was obtained. Comparison: Comparison is made to chest radiograph 11/03/2023 FINDINGS: No lines and tubes are seen. Cardiomegaly is noted. Multifocal airspace opacities are seen. No evidence of pleural effusion or pneumothorax. IMPRESSION: Multiple airspace opacities compatible with pneumonia. ACT 112: Negative or not required by law. Electronically signed by: Keith Khoury M.D. 12/17/2023 5:[address] 12/17/23 18:49 Exam(s): CT CHEST Without Contrast EXAM: CT Chest Without Intravenous Contrast CLINICAL HISTORY: Respiratory failure. TECHNIQUE: Axial computed tomography images of the chest without intravenous contrast. CTDI is 27.47 mGy and DLP is 845.92 mGy-cm. Automated exposure control was utilized for the study. A dose lowering technique was utilized adhering to the principles of ALARA. COMPARISON: Chest radiograph 12/17/2023 FINDINGS: Lungs: Diffuse bilateral airspace opacities bilaterally are concerning for atypical infection and/or aspiration. Interseptal thickening is also noted. Pleural space: Small bilateral pleural effusions. No pneumothorax. Heart: Unremarkable. No cardiomegaly. No significant pericardial effusion. No significant coronary artery calcifications. Bones/joints: There are degenerative changes of the spine. No acute fracture. Soft tissues: Unremarkable. Vasculature: Moderate atherosclerosis. No thoracic aortic aneurysm. Lymph nodes: Unremarkable. No enlarged lymph nodes. IMPRESSION: 1. Diffuse bilateral airspace opacities bilaterally are concerning for atypical infection and/or aspiration. Cannot exclude superimposed pulmonary edema. 2. Small bilateral pleural effusions. Electronically signed by: Juanis Elizalde MD 12/17/23 20:58 PM I & O Totals 24 Hours 12/17/23 12/18/23 12/19/23 06:59 06:59 06:59 Intake Total 800 / 800 160 / 160 Output Total 850 / 850 Balance -50 / -50 160 / 160 Cumulative 12/17/23 16:35 thru 12/18/23 09:15 Intake Total 960 Output Total 850 Balance 110 RT Ventilator Mngmt (Last Documented) Ventilator Ordered Settings Respiratory Rate 19 12/18/23 08:19 Fraction of Inspired Oxygen 50 12/18/23 07:34 Ventilator - PT Measurements Respiratory Rate 19 PG Care Time/CCT Total # of Minutes Spent Total Time Spent with Patient: Total time spent is greater than 50% in coordination of care (as documented) at patient's floor/unit and/or counseling patient: Coding Level of Care Code 08504 INT INP/OBS CARE 3/75MIN Diagnoses Multifocal pneumonia J18.9 Acute respiratory failure with hypoxia and hypercapnia J96.01; J96.02 Acidosis E87.20
[2023-12-18] MEDS ORDERED: SODIUM CHLORIDE 0.9% 1,000 ML IV PRN (11:17)
[2023-12-18] MEDS ORDERED: SODIUM CHLORIDE 0.9% 250 ML IV PRN (12:27)
[2023-12-18 13:28] LABS: Hep B Surface Ag with confirm Negative (Negative)
[2023-12-18 13:37] LABS: Hepatitis B Surface Ab Quant < 3.00 mIU/mL (>or=10mIU/mL Immune); Hepatitis B Surface Antibody Non-Immune
--- NOTE | 2023-12-18 13:44 | Consultation ---
Date of Consultation December 18, 2023 Assessment & Plan (1) CKD (chronic kidney disease) stage 5, GFR less than 15 ml/min: Will plan on permcath unless patient can not lay flat in OR, then temp will be placed. I have discussed the risks options and benefits of the procedure with the patient. The patient understands the risks options and benefits and agrees to the procedure. History of Present Illness Reason for Consultation: KARLA on CRD Attending Physician: Etelvina Odell MD History of Present Illness Patient is a 78 yo male with end stage renal disease who presented with shortness of breath and fluid overload. He is in need of dialysis. His new fistula was tried but was blown after 15 min of the run. Allergies Allergy/AdvReac Type Severity Reaction Status Date / Time cephalexin Allergy Severe Tongue and Verified 11/24/23 07:00 face swelling tamsulosin Allergy Severe angioedema Verified 11/24/23 07:00 Home Medications Medication Instructions Recorded Confirmed Type amlodipine 5 mg tablet 5 mg PO HS 07/26/18 12/17/23 History atorvastatin 80 mg tablet 80 mg PO HS 07/01/22 12/17/23 History finasteride 5 mg tablet 5 mg PO HS 07/01/22 12/17/23 History aspirin 81 mg chewable tablet 81 mg PO HS 07/04/22 12/17/23 History [id number] 1 mg 1 tab PO HS 07/04/22 12/17/23 History tablet calcitriol 0.5 mcg capsule 0.5 mcg PO 3XWK 04/28/23 12/17/23 History calcium acetate(phosphat bind) 667 667 mg PO TID 12/17/23 12/17/23 History mg capsule ciprofloxacin HCl 500 mg tablet 500 mg PO DAILY 12/17/23 12/17/23 History fluocinonide 0.05 % topical 0.05 applic topical DAILY 12/17/23 12/17/23 History solution torsemide 20 mg tablet 20 mg PO DAILY 12/17/23 12/17/23 History triamcinolone acetonide 0.1 % 0.1 applic topical BID 12/17/23 12/17/23 History topical cream warfarin 5 mg tablet 5 mg PO DAILY 12/17/23 12/17/23 History Patient History Medical History Gastric nodule Type 2 diabetes mellitus NIDDM Bifascicular block ongoing since 2010 Umbilical hernia chronic per patient-denies change or worsening History of blood transfusion pre-op aortic valve replacement CAD (coronary artery disease) s/p 1 stent in 2019 HTN (hypertension) controlled, stable per pt History of diverticulitis entered into EMR 09/2022-patient states last flare was 1 year ago History of colon polyps BPH (benign prostatic hyperplasia) CKD (chronic kidney disease), stage V Arthritis Hx of bladder cancer surgery only Hyperlipidemia Surgical History History of cataract surgery left and right H/O cystoscopy History of tooth extraction Aortic valve replaced 2019 at [facility], [facility] (follow[address] Dr[address] Wei) History of heart artery stent 1 stent placed 2019 History of orchiectomy, unilateral History of arthroscopy of left knee History of colonoscopy Family History Mother Family history of diabetes mellitus Father Family hx of colon cancer Other No family history of adverse response to anesthesia Social History Smoking Status: Never smoker Tobacco Type: Cigarettes Second Hand Exposure: No; Do You Dip or Chew Tobacco: No; Tobacco Cessation Education Requested by Patient: No Hx Alcohol Use: No Hx Substance Use: No Preferred Language: Kyrgyz Communication Ability: Effective Manager Night Required: No Beliefs That Will Affect Care: None Current Living Situation: Spouse Other Information That Helps Us Care for You: No Feels Safe at Home: Yes Safety Concerns: Feels Safe At This Time Assistive Devices: Walker Review of Systems Review of Systems: All systems reviewed & are unremarkable except as noted in HPI & below Physical Exam Constitutional: WD/WN, vitals as above Respiratory: + respiratory distress; + abnormal respi ratory effort Auscultation: + crackles and + bronchovesicular breath sounds Cardiovascular: Rate/Rhythm: regular rate and regular rhythm Extremities: + AV fistula Gastrointestinal (Abdomen): Inspection/Auscultation: abdomen normal to inspection; abdomen not distended Percussion/Palpation: abdomen nontender Neurologic: CN's II-XI intact bilaterally and moves all extremities Psychiatric: Orientation: alert and oriented x 3 Results & Data Vital Signs (Past 12 Hours) Vital Signs Temp Pulse Pulse Resp BP Pulse Ox O2 Del Method 12/18/23 10:55 37.3 C 84 19 109/67 92 High Flow Nasal Cannula 12/18/23 10:23 High Flow Nasal Cannula 12/18/23 10:21 73 12/18/23 10:03 86 20 91 Nasal Cannula 12/18/23 08:19 36.9 C 80 19 109/65 91 High Flow Nasal Cannula 12/18/23 07:34 73 16 93 12/18/23 03:15 76 24 93 12/18/23 03:09 36.8 C 74 18 115/68 95 BiPAP O2 Flow Rate FiO2 12/18/23 10:55 10 12/18/23 10:23 10 12/18/23 10:21 12/18/23 10:03 10 12/18/23 08:19 10 12/18/23 07:34 50 12/18/23 03:15 50 12/18/23 03:09
[2023-12-18] MEDS ORDERED: fentaNYL citrate PF 100 MCG/2 ML VIAL ONE (13:53)
[2023-12-18] MEDS ORDERED: PROPOFOL IV EMULSION 10 MG/ML 20 ML VIAL IV ONE (13:53)
--- NOTE | 2023-12-18 13:53 | Anesthesiology Consultation ---
Date of Service December 18, 2023 Assessment & Plan (1) Encounter for pre-operative examination: Chart Review Chart Review: Acceptable Risk for Surgery (urgent procedure for needed dialysis) History Surgery Operation Date: 12/18/23 10:05 Proposed Procedures p Insertion of Perm Catheter - Arnol Whiting MD Height/Weight Height: 5 ft 6 in Weight: 106.957 kg Allergies Allergy/AdvReac Type Severity Reaction Status Date / Time cephalexin Allergy Severe Tongue and Verified 11/24/23 07:00 face swelling tamsulosin Allergy Severe angioedema Verified 11/24/23 07:00 Medications Home Medications Medication Instructions Recorded Confirmed Last Taken amlodipine 5 mg tablet 5 mg PO HS 07/26/18 12/17/23 12/16/23 atorvastatin 80 mg tablet 80 mg PO HS 07/01/22 12/17/23 12/16/23 finasteride 5 mg tablet 5 mg PO HS 07/01/22 12/17/23 12/16/23 aspirin 81 mg chewable tablet 81 mg PO HS 07/04/22 12/17/23 12/16/23 [id number] 1 mg 1 tab PO HS 07/04/22 12/17/23 12/16/23 tablet calcitriol 0.5 mcg capsule 0.5 mcg PO 3XWK 04/28/23 12/17/23 12/16/23 calcium acetate(phosphat bind) 667 667 mg PO TID 12/17/23 12/17/23 12/16/23 mg capsule ciprofloxacin HCl 500 mg tablet 500 mg PO DAILY 12/17/23 12/17/23 12/16/23 fluocinonide 0.05 % topical 0.05 applic topical DAILY 12/17/23 12/17/23 12/16/23 solution torsemide 20 mg tablet 20 mg PO DAILY 12/17/23 12/17/23 12/16/23 triamcinolone acetonide 0.1 % 0.1 applic topical BID 12/17/23 12/17/23 12/16/23 topical cream warfarin 5 mg tablet 5 mg PO DAILY 12/17/23 12/17/23 12/16/23 Active Medications Generic Name Dose Route Start Last Admin Trade Name Freq PRN Reason Stop Dose Admin Albuterol 3 ml 12/17/23 23:11 12/18/23 10:03 Albut/Ipratrop 3mg/0.5mg Neb 3 Ml Vial NEB 01/16/24 23:10 3 ml Q4H PRN Administration Shortness Of Breath Or Wheezing Protocol Aspirin 81 mg 12/17/23 21:48 12/17/23 23:00 Aspirin 81 Mg Ectab PO 01/16/24 21:47 81 mg HS NATHANAEL Administration Atorvastatin Calcium 80 mg 12/17/23 21:48 12/17/23 22:55 Atorvastatin 40 Mg Tab PO 01/16/24 21:47 Not Given HS NATHANAEL Betamethasone Dipropion Augmented 1 appln 12/18/23 09:00 12/18/23 08:42 Betamethasone Dip Aug (Diprolene) 0.05% Cr 15 Gm Tube EXT 01/17/24 08:59 Not Given DAILY NATHANAEL Calcitriol 0.5 mcg 12/18/23 09:00 12/18/23 08:43 Calcitriol 0.25 Mcg Capsule PO 01/17/24 08:59 0.5 mcg [id number]@0900 NATHANAEL Administration Calcium Acetate 667 mg 12/17/23 21:48 12/18/23 11:13 Calcium Acetate 667 Mg Cap/Tab PO 01/16/24 21:47 Not Given TIDM NATHANAEL Finasteride 5 mg 12/17/23 21:48 12/17/23 22:55 Finasteride 5 Mg Tab PO 01/16/24 21:47 Not Given HS NATHANAEL Furosemide 40 mg 12/18/23 09:00 12/18/23 08:53 Furosemide 40 Mg/4 Ml Vial IV 01/17/24 08:59 40 mg DAILY NATHANAEL Administration Heparin Sodium (Porcine) 5,000 units 12/17/23 22:00 12/18/23 06:12 Heparin Sod 5,000 Unit/0.5 Ml Vial SQ 01/16/24 21:59 5,000 units Q8 NATHANAEL Administration Metronidazole 500 mg in 100 mls @ 100 mls/hr 12/17/23 23:00 12/18/23 08:59 Flagyl IV 12/24/23 22:59 Infused Q8H NATHANAEL Infusion Protocol Sodium Zirconium Cyclosilicate 10 gm 12/17/23 21:45 12/18/23 08:42 Sodium Zirconium Cyclosilicate 10 Gm Packet PO 12/19/23 14:01 10 gm TID NATHANAEL Administration Triamcinolone Acetonide 0.1 appln 12/17/23 21:48 12/18/23 08:42 Triamcinolone Acet 0.1% Cr 15 Gm Tube TOP 01/16/24 21:47 Not Given BID [facility] Warfarin Sodium 5 mg 12/17/23 21:48 12/17/23 22:55 Warfarin Sod 5 Mg Tab PO 01/16/24 21:47 Not Given DAILY@1600 NATHANAEL Past Medical History Medical History (Updated 12/18/23 @ 13:49 by Zane Foote MD) Anemia Gastric nodule Type 2 diabetes mellitus NIDDM Bifascicular block ongoing since 2010 Umbilical hernia chronic per patient-denies change or worsening History of blood transfusion pre-op aortic valve replacement CAD (coronary artery disease) s/p 1 stent in 2019 HTN (hypertension) controlled, stable per pt History of diverticulitis entered into EMR 09/2022-patient states last flare was 1 year ago History of colon polyps BPH (benign prostatic hyperplasia) CKD (chronic kidney disease), stage V Arthritis Hx of bladder cancer surgery only Hyperlipidemia Past Family History Family History Mother Family history of diabetes mellitus Father Family hx of colon cancer Other No family history of adverse response to anesthesia Past Surgical History Surgical History History of cataract surgery left and right H/O cystoscopy History of tooth extraction Aortic valve replaced 2019 at [facility] (followed by Dr. Wei) History of heart artery stent 1 stent placed 2019 History of orchiectomy, unilateral History of arthroscopy of left knee History of colonoscopy Social History Smoking Status: Never smoker Do You Dip or Chew Tobacco: No Hx Alcohol Use: No Hx Substance Use: No substance use type: does not use Physical Exam Vital Signs Last Vital Signs Temp 37.3 C 12/18/23 10:55 Pulse 84 12/18/23 10:55 Resp 19 12/18/23 10:55 BP 109/67 12/18/23 10:55 Pulse Ox 92 12/18/23 10:55 O2 Del Method High Flow Nasal Cannula 12/18/23 10:55 O2 Flow Rate 10 12/18/23 10:55 FiO2 50 12/18/23 07:34 Testing Laboratory Results 12/18/23 05:22 12/18/23 05:22 PT 21.6 Seconds (9.0-12.0) H 12/18/23 05:22 INR 2.1 (0.9-1.1) H 12/18/23 05:22 Urine Color Yellow 12/17/23 22:37 Urine Appearance Turbid (Clear) A 12/17/23 22:37 Urine pH 5.5 (4.5-7.5) 12/17/23 22:37 Ur Specific Wheeler 1.014 (1.000-1.030) 12/17/23 22:37 Urine Protein 2+ (Negative) H 12/17/23 22:37 Urine Glucose (UA) Negative (Negative) 12/17/23 22:37 Urine Ketones Negative (Negative) 12/17/23 22:37 Urine Nitrite Negative (Negative) 12/17/23 22:37 Ur Leukocyte Esterase 3+ (Negative) H 12/17/23 22:37 Urine WBC (Auto) >50 /hpf (0-5) H 12/17/23 22:37 Urine RBC (Auto) 0-2 /hpf (0-2) 12/17/23 22:37 U Hyaline Cast (Auto) 6-10 /lpf (0-2) H 12/17/23 22:37 U Epithel Cells (Auto) 0-2 /hpf (0-2) 12/17/23 22:37 Urine Bacteria (Auto) None Seen (None Seen) 12/17/23 22:37 Blood Type A Positive 12/18/23 12:39 Antibody Screen NEGATIVE 12/18/23 12:39 Electrocardiogram Date: 12/17/23 Findings: + NSR @ (95) bifascicular block Echocardiogram LV Function: normal Valvular Disease: + MS (mild) s/p TAVR mild increase gradient
[2023-12-18] MEDS ORDERED: ONDANSETRON INJ 2 MG/ML 2 ML VIAL ONE (13:54)
[2023-12-18] MEDS: HEPARIN SOD (PORCINE) 5,000 UNITS/ML VIAL ONE (15:14)
[2023-12-18] MEDS: LIDOCAINE 1% LOCAL 20 ML VIAL ONE (15:15)
--- NOTE | 2023-12-18 15:17 | Operative Report ---
Post Operative Report Pre & Post Diagnosis Operation Date: 12/18/23 10:05 Pre-Op Diagnosis: Acute Kidney Injury, Chronic Renal Disease Post-Op Diagnosis: Acute Kidney Injury, Chronic Renal Disease I identified the patient and participated in the time-out.: Yes Procedure Operation Date: 12/18/23 10:05 Actual Procedures p Insertion of Temporary Dialysis Catheter to Right Femoral Vein, Ultrasound Localization of Right Femoral Vein(Right), Fluoroscopy - Arnol Whiting MD Surgeon Arnol Whiting MD Storage Solutions Architect none Estimated Blood Loss 2 Findings Consistent with Post-Op Diagnosis Specimens none Anesthesia Type MAC Complications none Disposition Accompanied Patient To Recovery: No Disposition: Recovery Room Indications This is a 78-year-old gentleman end-stage renal disease no acute kidney injury and fluid overload. He is in need of dialysis. Attempt was made to use his fistula but did not work. Temporary catheter was recommended for due to the fact he cannot lay flat for a PermCath. I have discussed the risks options and benefits of the procedure with the patient. The patient understands the risks options and benefits and agrees to the procedure. Description of Procedure Patient was taken to the angio suite and placed in the supine position. The right groin were prepped and draped in a sterile manner. The patient was identified and a timeout performed. Local anesthesia was then administered to the appropriate areas. Ultrasound was then used to locate the right common femoral vein. The vein compressed easily, had no filing defects, and was patent. The vein was then punctured under direct ultrasound imaging. A guidewire was then passed centrally under fluoroscopic imaging. A stab wound was then made in the groin and a 23 cm temporary dialysis catheter was passed to a central position in the inferior vein. The catheter was then sutured in place using nylon sutures. Both ports aspirated and flushed easily and were then packed with heparin. A sterile dressing was applied to the catheter. The patient left the operation room in satisfactory condition and tolerated the procedure well. All needle and sponge counts were correct at the end of the procedure. I attest to the content of the Intraoperative Record and any orders documented therein. Any exceptions are noted below.
--- NOTE | 2023-12-18 16:07 | Anesthesiology Progress Note ---
Date of Service December 18, 2023 Anesthesia Post Procedure Vital Signs Vital Signs: Temp Pulse Pulse Pulse Pulse Resp BP 12/18/23 15:45 38 C H 88 22 12/18/23 15:35 88 22 12/18/23 15:25 86 22 12/18/23 15:18 38.2 C H 80 12 12/18/23 14:31 37.6 C H 85 20 105/49 L 12/18/23 14:31 85 20 108/59 L 12/18/23 14:28 37.3 C 85 20 12/18/23 14:16 37.3 C 85 20 95/54 L 12/18/23 14:15 37.3 C 86 20 95/54 L 12/18/23 12:10 37 C 83 12/18/23 12:10 83 116/59 L 12/18/23 12:00 83 117/62 12/18/23 11:55 37 C 74 116/64 12/18/23 11:50 37 C 12/18/23 10:55 37.3 C 84 19 12/18/23 10:23 12/18/23 10:21 73 12/18/23 10:03 86 20 12/18/23 08:19 36.9 C 80 19 12/18/23 07:34 73 16 12/18/23 03:15 76 24 12/18/23 03:09 36.8 C 74 18 12/18/23 00:09 36.9 C 78 23 12/17/23 23:21 77 12/17/23 22:16 84 23 12/17/23 22:01 80 12/17/23 21:54 12/17/23 21:50 37.0 C 81 18 12/17/23 21:24 86 23 113/78 12/17/23 20:46 83 12/17/23 20:30 85 25 H 12/17/23 20:00 86 24 114/67 12/17/23 19:46 85 24 119/62 12/17/23 19:16 92 H 26 H 119/59 L 12/17/23 18:50 90 23 12/17/23 18:45 92 H 27 H 121/101 H 12/17/23 18:33 94 H 25 H 125/71 12/17/23 18:27 94 H 25 H 12/17/23 18:15 94 H 27 H 129/63 12/17/23 18:00 96 H 27 H 128/63 12/17/23 17:45 95 H 25 H 123/87 12/17/23 17:42 96 H 28 H 12/17/23 17:31 12/17/23 17:15 97 H 27 H 137/69 12/17/23 17:09 94 H 27 H 135/73 12/17/23 17:04 93 H 15 12/17/23 17:00 91 H 34 H 12/17/23 16:51 98 H 12/17/23 16:45 133/83 12/17/23 16:38 36.6 C 94 H 22 121/54 L BP Pulse Ox O2 Del Method O2 Flow Rate FiO2 12/18/23 15:45 110/55 L 88 L Oxymask 10 12/18/23 15:35 107/53 L 90 Non-rebreather 10 12/18/23 15:25 100/53 L 92 Non-rebreather 15 12/18/23 15:18 103/47 L 86 L Oxymask 15 12/18/23 14:31 90 10 12/18/23 14:31 90 10 12/18/23 14:28 95/54 L 90 High Flow Nasal Cannula 10 12/18/23 14:16 90 10 12/18/23 14:15 89 L 10 12/18/23 12:10 108/60 12/18/23 12:10 12/18/23 12:00 12/18/23 11:55 12/18/23 11:50 12/18/23 10:55 109/67 92 High Flow Nasal Cannula 10 12/18/23 10:23 High Flow Nasal Cannula 10 12/18/23 10:21 12/18/23 10:03 91 Nasal Cannula 10 12/18/23 08:19 109/65 91 High Flow Nasal Cannula 10 12/18/23 07:34 93 50 12/18/23 03:15 93 50 12/18/23 03:09 115/68 95 BiPAP 12/18/23 00:09 119/68 93 BiPAP 50 12/17/23 23:21 12/17/23 22:16 95 50 12/17/23 22:01 12/17/23 21:54 BiPAP 50 12/17/23 21:50 111/58 L 95 BiPAP 12/17/23 21:24 95 BiPAP 12/17/23 20:46 12/17/23 20:30 94 BiPAP 12/17/23 20:00 94 BiPAP 12/17/23 19:46 94 BiPAP 12/17/23 19:16 93 Nasal Cannula 10 12/17/23 18:50 94 50 12/17/23 18:45 93 Oxymask 10 12/17/23 18:33 92 Oxymask 10 12/17/23 18:27 91 Oxymask 10 12/17/23 18:15 92 Oxymask 10 12/17/23 18:00 92 Oxymask 10 12/17/23 17:45 93 Oxymask 10 12/17/23 17:42 92 Oxymask 10 12/17/23 17:31 93 Nebulizer 12/17/23 17:15 93 Nebulizer 12/17/23 17:09 92 Nebulizer 12/17/23 17:04 93 Non-rebreather 15 12/17/23 17:00 93 Nebulizer 12/17/23 16:51 12/17/23 16:45 12/17/23 16:38 65 L Room Air Transfer of Care Handoff Completed per policy Notes Mental Status: alert / awake / arousable and participated in evaluation Nausea / Vomiting: adequately controlled Pain: adequately controlled Airway Patency, RR, SpO2: stable & adequate BP & HR: stable & adequate Hydration State: stable & adequate Anesthetic Complications: no major complications apparent and Pt Satisfied with anesthetic care
[2023-12-18] MEDS ORDERED: Nursing to Pharmacy Communication SCH (19:45)
[2023-12-18] MEDS ORDERED: amLODIPine BESYLATE 5 MG TAB PO SCH (21:00)
--- NOTE | 2023-12-18 22:13 | Electrocardiogram Report ---
Test Reason : Blood Pressure : / mmHG Vent. Rate : 095 BPM Atrial Rate : 095 BPM P-R Int : 190 ms QRS Dur : 142 ms QT Int : 364 ms P-R-T Axes : 031 -63 089 degrees QTc Int : 457 ms Sinus rhythm with Premature supraventricular complexes Right bundle branch block Left anterior fascicular block Bifascicular block Left ventricular hypertrophy with repolarization abnormality ( R in aVL ) Abnormal ECG When compared with ECG of 03-NOV-2023 13:37, Premature supraventricular complexes are now Present T wave inversion now evident in Lateral leads Confirmed by Aly Espinosa ([id number]) on 12/18/2023 10:12:55 PM Referred By: REFERRED SELF Confirmed By:Aly Espinosa
[2023-12-19 07:33] LABS: Hematocrit (blood only) 26.1 % (42.0-52.0); Hemoglobin 7.8 g/dl (14.0-18.0); Mean Corpuscular Hemoglobin 30.2 pg (25.0-34.0); Mean Corpuscular Hgb Conc 29.9 g/dL (32.0-36.0); Mean Corpuscular Volume 101.2 fL (80.0-100.0); Mean Platelet Volume 10.4 fL (9.4-12.4); Nucleated RBC # (auto) 0.03 K/uL (0.00-0.12); Nucleated RBC % (auto) 0.3 %; Platelet Count 218 K/uL (130-400); RDW Coefficient of Variation 14.8 % (11.5-14.5); RDW Standard Deviation 54.9 fL (36.4-46.3); Red Blood Count 2.58 M/uL (4.70-6.10); White Blood Count 8.63 K/ul (4.8-10.8)
[2023-12-19 07:48] LABS: BUN Creatinine Ratio 11.7 (10-20); Calcium 9.2 mg/dl (8.6-10.3); Creatinine Clr Calc Pharmacy 10.5 ml/min; Est GFR (African American) 8.6 ml/min; Est GFR (Non-African American) 7.4 ml/min; Magnesium 2.2 mg/dl (1.7-2.4); Phosphorus 8.4 mg/dl (2.5-4.9); Potassium 5.1 mmol/L (3.5-5.1)
[2023-12-19 07:55] LABS: INR 1.8 (0.9-1.1); Prothrombin Time 18.9 Seconds (9.0-12.0)
--- NOTE | 2023-12-19 09:24 | XRay Report ---
XR chest 1V portable CLINICAL HISTORY: sob TECHNIQUE: Single frontal radiograph of the chest was obtained. Comparison: Comparison is made to chest radiograph 12/17/2023 FINDINGS: No lines and tubes are seen. Calcified aortic knob is seen. Multifocal airspace opacities are seen. N o evidence of pleural effusion or pneumothorax. IMPRESSION: Redemonstration of multifocal airspace opacities, not significantly changed, compatible with pneumoni a. ACT 112: Negative or not required by law. Electronically signed by: Keith Khoury M.D. 12/19/2023 9:22 AM
--- NOTE | 2023-12-19 09:28 | Pulmonology Progress Note ---
Date of Service December 19, 2023 Assessment & Plan (1) Multifocal pneumonia: (2) Acute respiratory failure with hypoxia and hypercapnia: (3) Acidosis: Plan Impression: 78-year-old male with end-stage renal disease now with multifocal airspace opacities concerning for potential multifocal pneumonia and progressive metabolic and respiratory acidosis. He is now status post temporary dialysis catheter placement underwent dialysis yesterday. He remains persistently hypoxemic. Recommendations: 1. Multifocal pneumonia: Agree with antibiotics in the form of levofloxacin dosed for creatinine clearance. Check urinary Legionella antigen 2. Acute on chronic hypoxemic and hypercarbic respiratory failure: Bicarb on chemistry panel much better today. Will need outpatient evaluation with PFTs and potential polysomnography to determine need for nocturnal noninvasive positive pressure ventilation. Can continue to use BiPAP/CPAP as needed. 3. Will add incentive spirometry and flutter valve to try and improve atelectatic changes and pulmonary clearance Will continue to follow closely Admission and Anticipated Discharge Date Admission Date: December 17, 2023 Subjective Patient seen and examined. EMR reviewed. The patient is awake and alert. He used BiPAP last night. He had a temporary dialysis catheter placed and underwent dialysis. He is not coughing. He feels less congested in his chest. He was transition to high flow nasal cannula this morning. Review of Systems 2 Review of Systems: All systems reviewed & are unremarkable except as noted in Subjective Physical Exam 2 Constitutional: well developed and well nourished ENMT: Nose: no external nose abnormality Mouth: + dry oral mucous membranes Neck: no nuchal rigidity Respiratory: normal respiratory effort Auscultation: + diminished lung sounds Cardiovascular: Rate/Rhythm: not tachycardic Heart Sounds: normal S1, normal S2 and + murmur Extremities: + edema Gastrointestinal (Abdomen): Inspection/Auscultation: normal bowel sounds P ercussion/Palpation: abdomen soft; abdomen nontender Skin: no rashes, warm and dry Results & Data Results & Data Vital Signs (Past 12 Hours) Vital Signs Temp Pulse Pulse Pulse Pulse Resp BP 12/19/23 08:44 84 22 12/19/23 07:27 37.2 C 84 20 12/19/23 07:07 85 20 12/19/23 03:18 81 23 12/19/23 02:42 37.0 C 86 18 12/19/23 01:29 12/19/23 01:25 12/19/23 00:47 88 20 12/19/23 00:07 36.8 C 72 18 117/70 12/18/23 23:34 36.7 C 86 19 108/67 12/18/23 22:56 37.5 C 83 20 12/18/23 22:52 81 18 12/18/23 22:34 36.7 C 88 18 110/75 12/18/23 21:59 82 12/18/23 21:37 12/18/23 21:34 36.8 C 86 18 102/63 BP Pulse Ox O2 Del Method O2 Flow Rate FiO2 12/19/23 08:44 90 High Flow Nasal Cannula 50 100 12/19/23 07:27 100/62 93 High Flow Nasal Cannula 10 12/19/23 07:07 90 60 12/19/23 03:18 95 60 12/19/23 02:42 101/60 97 BiPAP 12/19/23 01:29 93 BiPAP 80 12/19/23 01:25 84 L High Flow Nasal Cannula 10 12/19/23 00:47 90 10 12/19/23 00:07 92 12/18/23 23:34 92 12/18/23 22:56 105/65 90 BiPAP 12/18/23 22:52 93 60 12/18/23 22:34 96 12/18/23 21:59 12/18/23 21:37 BiPAP 12/18/23 21:34 94 Laboratory Results 12/19/23 06:59 12/19/23 06:59 Microbiology 12/17/23 18:20 Blood Aerobic Blood Culture - Preliminary No growth in Aerobic bottle after 24 hours. 12/17/23 18:20 Blood Anaerobic Blood Culture - Preliminary No growth in Anaerobic bottle after 24 hours. 12/17/23 16:51 Blood Aerobic Blood Culture - Preliminary No growth in Aerobic bottle after 24 hours. 12/17/23 16:51 Blood Anaerobic Blood Culture - Preliminary No growth in Anaerobic bottle after 24 hours. Diagnostic Findings Chest x-ray performed last night demonstrated improved aeration in the right lung with persistent basilar opacities on the left. PG Care Time/CCT Total # of Minutes Spent Total Time Spent with Patient: Total time spent is greater than 50% in coordination of care (as documented) at patient's floor/unit and/or counseling patient: Coding Level of Care Code 15001 SUB INP/OBS CARE 3/50MIN Diagnoses Multifocal pneumonia J18.9 Acute respiratory failure with hypoxia and hypercapnia J96.01; J96.02 Acidosis E87.20
[2023-12-19] MEDS: MIDODRINE HCL 10 MG TAB PO STA (10:30)
[2023-12-19] MEDS: ALBUMIN 25% 12.5 GM/50 ML VIAL IV STA (10:30)
--- NOTE | 2023-12-19 11:27 | Dialysis Progress Note ---
Date of Service December 19, 2023 Assessment & Plan Admission and Anticipated Discharge Date Admission Date: December 17, 2023 Subjective (1) CKD (chronic kidney disease) stage 5, GFR less than 15 ml/min: longstanding CKD 5 now presenting w/ acute respiratory failure, volume overload, and metabolic encephalopathy in the setting of Acute b/l Pneumonia as the final trigger. 2hr dialysis yesterday and 3 hr today. BP now better but still borderline. He still makes urine so will give lasix 100 mg iv x 1 and then lasix drip at 10 mg /hr about 2 hrs after dialysis he has temp HD cath in groin. will need a tunneled hD cath early next week. Arrangements for Dialysis in center at [facility] under my care. Next HD likely on Thursday with temp HD cath. (2) Acute respiratory failure with hypoxia and hypercapnia: from pneumonia and volume overload. even now needing 50 lit o2. has to be lot less before ready for discharge as per hospitalist and pulmonary (3) Metabolic encephalopathy: should improve w/ HD and w/ treatment of pneumonia. -f/u pending cultures >> NOTE no bacteria on admission UA which is good news Plan discussed with hospitalist S---seen during Dialysis. BP was super low at the start and o2 was low despite 50 lit/min of 100% o2. Looked sick. Gave him midodrine and 25% alb and got better. Now doing better. Physical Exam Constitutional: well developed and well nourished Eyes: EOM intact bilaterally ENMT: Ears: no external ear abnormality Nose: no external nose abnormality Mouth: + dry oral mucous membranes Neck: no nuchal rigidity Respiratory: b/l crcakles and wheezing + diminished lung sounds Gastrointestinal (Abdomen): Inspection/Auscultation: normal bowel sounds Percussion/Palpation: abdomen soft; abdomen nontender Musculoskeletal: Extremities: strength 5/5 throughout Skin: no rashes, warm and dry Neurologic: ford, fluent speech, no tremor Results & Data Vital Signs (Past 12 Hours) Vital Signs Temp Pulse Pulse Pulse Pulse Resp BP 12/19/23 08:44 84 22 12/19/23 07:27 37.2 C 84 20 12/19/23 07:07 85 20 12/19/23 03:18 81 23 12/19/23 02:42 37.0 C 86 18 12/19/23 01:29 08/03/24 01:25 12/19/23 00:47 88 20 12/19/23 00:07 36.8 C 72 18 117/70 12/18/23 23:34 36.7 C 86 19 108/67 BP Pulse Ox O2 Del Method O2 Flow Rate FiO2 12/19/23 08:44 90 High Flow Nasal Cannula 50 100 12/19/23 07:27 100/62 93 High Flow Nasal Cannula 10 12/19/23 07:07 90 60 12/19/23 03:18 95 60 12/19/23 02:42 101/60 97 BiPAP 12/19/23 01:29 93 BiPAP 80 12/19/23 01:25 84 L High Flow Nasal Cannula 10 12/19/23 00:47 90 10 12/19/23 00:07 92 12/18/23 23:34 92
--- NOTE | 2023-12-19 14:40 | Hospitalist Progress Note ---
Date of Service December 19, 2023 Assessment & Plan (1) Acute respiratory failure with hypoxia and hypercapnia: (2) Multifocal pneumonia: (3) CKD (chronic kidney disease) stage 5, GFR less than 15 ml/min: (4) BPH (benign prostatic hyperplasia): (5) Hypertension: (6) CAD (coronary artery disease): (7) Anticoagulated on Coumadin: (8) Metabolic encephalopathy: (9) Acidosis: Plan 77 year old male who presented to the ED with weakness and shortness of breath Acute hypoxic and hypercarbic respiratory failure Multifocal pneumonia Metabolic acidosis Worsening renal disease, CKD 5 Hyperkalemia On admission, ABG 7.18/73/57 WBC 13, Hb 9.6, K 5.4, Cr 7.1, Trop -88.4->>116->100. Procal 0.7 RVP is negative CXR with multifocal PNA. CT chest showed diffuse bilateral airspace opacities concerning for atypical infection and or aspiration, small bilateral pleural effusion Currently on Levofloxacin, flagyl Has allergy to cephalosporins Pulm recs noted [employer] Journeyman noted inability to use recent AVF and consulted Vascular surgeon for HD catheter placement Vascular placed temp right femoral HD catheter for now Continue HD per Nephro Discussed with Dr Avelar today. He recommends giving lasix 100mg x 1 and then start lasix drip 10mg/hr 2 hrs after HD Wean oxygen as tolerated History of TAVR for severe INR is 1.8 today Continue warfarin and monitor INR BPH s/p TURP Continue finasteride Elevated trop Due to demand ischemia in setting of worsening renal function HTN Home amlodipine stopped Got midodrine during HD due to hypotension DVT ppx- on warfarin Updated at bedside I spent a total of 50 minutes coordinating, documenting and providing care for this patient excluding time spent in performance of separately billed services Admission and Anticipated Discharge Date Admission Date: December 17, 2023 Subjective Patient seen this AM in HD unit Reports cough and some SOB but stated he feels better On HFNC No other complaints Vascular placed temporary right groin HD catheter yesterday. Got HD yesterday and currently getting HD again Physical Exam Constitutional: + well hydrated; no acute distress Eyes: PERRL, conjunctivae normal, anicteric sclerae Respiratory: normal respiratory effort On HFNC, diminished breath sounds Cardiovascular: Rate/Rhythm: regular rate and regular rhythm Gastrointestinal (Abdomen): normal bowel sounds, soft, nontender, no hepatosplenomegaly Musculoskeletal: +pedal edema Neurologic: PERRL, EOMI, accommodation nl, no face palsy, no dysarthria Psychiatric: A+Ox3, euthymic affect Results & Data Results & Data Vital Signs (Past 12 Hours) Vital Signs Temp Pulse Pulse Pulse Pulse Resp BP 12/19/23 14:16 80 20 12/19/23 13:55 36.9 C 77 12/19/23 13:30 77 98/53 L 12/19/23 13:00 76 108/50 L 12/19/23 12:30 76 109/55 L 12/19/23 12:16 12/19/23 12:16 81 12/19/23 12:00 77 108/56 L 12/19/23 11:30 81 90/62 L 12/19/23 11:20 86 20 12/19/23 11:00 85 95/52 L 12/19/23 10:30 81 102/51 L 12/19/23 10:20 81 90/49 L 12/19/23 09:58 37.0 C 51 L 12/19/23 08:44 84 22 12/19/23 07:27 37.2 C 84 20 12/19/23 07:07 85 20 12/19/23 03:18 81 23 12/19/23 02:42 37.0 C 86 18 BP Pulse Ox O2 Del Method O2 Flow Rate FiO2 12/19/23 14:16 91 High Flow Nasal Cannula 50 90 12/19/23 13:55 104/53 L 12/19/23 13:30 12/19/23 13:00 12/19/23 12:30 12/19/23 12:16 High Flow Nasal Cannula 12/19/23 12:16 12/19/23 12:00 12/19/23 11:30 12/19/23 11:20 93 High Flow Nasal Cannula 50 100 12/19/23 11:00 12/19/23 10:30 12/19/23 10:20 12/19/23 09:58 12/19/23 08:44 90 High Flow Nasal Cannula 50 100 12/19/23 07:27 100/62 93 High Flow Nasal Cannula 10 12/19/23 07:07 90 60 12/19/23 03:18 95 60 12/19/23 02:42 101/60 97 BiPAP
[2023-12-19] MEDS: FUROSEMIDE 100 MG in 0.9 % SODIUM CHLORIDE 90 ML IV SCH (17:36)
[2023-12-19] MEDS: FUROSEMIDE 40 MG/4 ML VIAL IV ONE (17:36)
[2023-12-19] MEDS: levoFLOXacin/D5W 500 MG/100 ML BAG IV SCH (17:37)
[2023-12-19 22:04] LABS: Base Excess ABG -3.1 mEq/L (-9-1.8); HCO3 ABG 25 mmol/L (19-24); Oxygen Saturation ABG 97.4 % (90-95); PCO2 ABG 59 mmHg (35-46); PO2 ABG 74 mmHg (80-95); pH ABG 7.24 (7.35-7.45)
[2023-12-19 22:10] LABS: Basophils # (auto) 0.03 K/uL (0.00-0.20); Basophils % (auto) 0.4 %; Eosinophils # (auto) 0.03 K/uL (0.00-0.50); Eosinophils % (auto) 0.4 %; Hematocrit (blood only) 26.1 % (42.0-52.0); Immature Granulocytes # (auto) 0.05 K/uL (0.01-0.20); Immature Granulocytes % (auto) 0.6 %; Lymphocytes # (auto) 0.56 K/uL (1.20-3.40); Lymphocytes % (auto) 6.7 %; Mean Corpuscular Hemoglobin 30.7 pg (25.0-34.0); Mean Corpuscular Hgb Conc 30.7 g/dL (32.0-36.0); Mean Platelet Volume 10.1 fL (9.4-12.4); Monocytes # (auto) 1.24 K/uL (0.11-0.59); Monocytes % (auto) 14.7 %; Neutrophils % (auto) 77.2 %; Nucleated RBC # (auto) 0.02 K/uL (0.00-0.12); Nucleated RBC % (auto) 0.2 %; Platelet Count 212 K/uL (130-400); RDW Standard Deviation 54.7 fL (36.4-46.3); Red Blood Count 2.61 M/uL (4.70-6.10); White Blood Count 8.41 K/ul (4.8-10.8)
[2023-12-19 22:13] LABS: Allen Test Pos (Pos)
[2023-12-19 22:33] LABS: BUN Creatinine Ratio 10.5 (10-20); Calcium 9.7 mg/dl (8.6-10.3); Creatinine Clr Calc Pharmacy 15.3 ml/min; Est GFR (African American) 13.5 ml/min; Est GFR (Non-African American) 11.7 ml/min; Potassium 4.6 mmol/L (3.5-5.1)
[2023-12-20 07:17] LABS: Mean Corpuscular Hgb Conc 29.6 g/dL (32.0-36.0); Mean Corpuscular Volume 101.1 fL (80.0-100.0); Mean Platelet Volume 9.9 fL (9.4-12.4); Nucleated RBC # (auto) 0.02 K/uL (0.00-0.12); Nucleated RBC % (auto) 0.3 %; Platelet Count 201 K/uL (130-400); RDW Coefficient of Variation 14.9 % (11.5-14.5); RDW Standard Deviation 54.5 fL (36.4-46.3); Red Blood Count 2.67 M/uL (4.70-6.10); White Blood Count 7.87 K/ul (4.8-10.8)
[2023-12-20 07:39] LABS: BUN Creatinine Ratio 11.9 (10-20); Calcium 9.8 mg/dl (8.6-10.3); Creatinine Clr Calc Pharmacy 12.7 ml/min; Est GFR (African American) 10.8 ml/min; Est GFR (Non-African American) 9.3 ml/min; Potassium 4.7 mmol/L (3.5-5.1)
[2023-12-20 07:54] LABS: INR 1.9 (0.9-1.1); Prothrombin Time 19.8 Seconds (9.0-12.0)
--- NOTE | 2023-12-20 08:38 | Pulmonology Progress Note ---
Date of Service December 20, 2023 Assessment & Plan (1) Multifocal pneumonia: (2) Acute respiratory failure with hypoxia and hypercapnia: (3) Acidosis: Plan Impression: 78-year-old male with end-stage renal disease now with multifocal airspace opacities concerning for potential multifocal pneumonia with possible mild fluid overload as well. He was hypoxemic on high flow apparently Recommendations: 1. Multifocal pneumonia: Currently day #3 Levaquin and Flagyl dosed for crea tinine clearance. Await urinary Legionella antigen 2. Acute on chronic hypoxemic and hypercarbic respiratory failure: Can continue to use BiPAP/CPAP as needed. Repeat chest x-ray in AM. 3. Continue incentive spirometry and flutter valve to try and improve atelectatic changes and pulmonary clearance Will continue to follow closely. The patient has significant possibility of clinical deterioration. Admission and Anticipated Discharge Date Admission Date: December 17, 2023 Subjective Patient seen and examined. EMR reviewed. The patient seems slightly more encephalopathic today. He is having difficulty opening his cell phone. He states his breathing is okay. He is not coughing or expectorating phlegm. No chest pain or palpitations. Blood pressure is on the lower side Review of Systems Review of Systems: All systems reviewed & are unremarkable except as noted in Subjective Physical Exam Constitutional: well developed and well nourished Eyes: EOM intact bilaterally ENMT: Nose: no external nose abnormality Mouth: + dry oral mucous membranes Neck: no nuchal rigidity Respiratory: normal respiratory effort Auscultation: + diminished lung sounds Cardiovascular: Rate/Rhythm: not tachycardic Heart Sounds: normal S1, normal S2 and + murmur Extremities: + edema Gastrointestinal (Abdomen): Inspection/Auscultation: normal bowel sounds Percussion/Palpation: abdomen soft; abdomen nontender Skin: no rashes, warm and dry Results & Data Results & Data Vital Signs (Past 12 Hours) Vital Signs Temp Pulse Pulse Pulse Resp BP Pulse Ox 12/20/23 07:34 86 20 92 12/20/23 03:39 88 20 93 12/20/23 03:28 36.9 C 88 20 105/57 L 93 12/20/23 00:37 121/67 12/19/23 23:26 88 21 94 12/19/23 22:46 37.0 C 85 20 95/55 L 93 12/19/23 21:50 86 O2 Del Method O2 Flow Rate FiO2 12/20/23 07:34 High Flow Nasal Cannula 50 90 12/20/23 03:39 High Flow Nasal Cannula 50 90 12/20/23 03:28 High Flow Nasal Cannula 50 95 12/20/23 00:37 12/19/23 23:26 High Flow Nasal Cannula 50 90 12/19/23 22:46 High Flow Nasal Cannula 50 90 12/19/23 21:50 Critical Care Results & Data Vital Signs (Past 12 Hours) Vital Signs Temp Pulse Pulse Pulse Resp BP Pulse Ox 12/20/23 07:34 86 20 92 12/20/23 07:00 36.5 C 86 20 102/61 90 12/20/23 03:39 88 20 93 12/20/23 03:28 36.9 C 88 20 105/57 L 93 12/20/23 00:37 121/67 12/19/23 23:26 88 21 94 12/19/23 22:46 37.0 C 85 20 95/55 L 93 12/19/23 21:50 86 O2 Del Method O2 Flow Rate FiO2 12/20/23 07:34 High Flow Nasal Cannula 50 90 12/20/23 07:00 High Flow Nasal Cannula 12/20/23 03:39 High Flow Nasal Cannula 50 90 12/20/23 03:28 High Flow Nasal Cannula 50 95 12/20/23 00:37 12/19/23 23:26 High Flow Nasal Cannula 50 90 12/19/23 22:46 High Flow Nasal Cannula 50 90 12/19/23 21:50 Lab & Micro Results (Past 24 Hours) RBC 2.67 M/uL (4.70-6.10) L 12/20/23 WBC 7.87 K/ul (4.8-10.8) 12/20/23 Hgb 8.0 g/dl (14.0-18.0) L 12/20/23 Hct 27.0 % (42.0-52.0) L 12/20/23 MCV 101.1 fL (80.0-100.0) H 12/20/23 MCH 30.0 pg (25.0-34.0) 12/20/23 MCHC 29.6 g/dL (32.0-36.0) L 12/20/23 RDW Standard Deviation 54.5 fL (36.4-46.3) H 12/20/23 RDW Coefficient of Variation 14.9 % (11.5-14.5) H 12/20/23 Plt Count 201 K/uL (130-400) 12/20/23 MPV 9.9 fL (9.4-12.4) 12/20/23 Nucleated Red Blood Cells % (auto) 0.3 % 12/19 Nucleated RBC Absolute Count (auto) 0.02 K/uL (0.00-0.12) 0 12/20/23 Neutrophils (%) (Auto) 77.2 % 12/19/23 Lymphocytes (%) (Auto) 6.7 % 12/19/23 Monocytes # (Auto) 1.24 K/uL (0.11-0.59) H 12/19/23 Eosinophils # (Auto) 0.03 K/uL (0.00-0.50) 12/19/23 Immature Granulocyte % (Auto) 0.6 % 12/19/23 Neutrophils # (Auto) 6.50 K/uL (1.40-6.50) 12/19/23 Lymphocytes # (Auto) 0.56 K/uL (1.20-3.40) L 12/19/23 Monocytes # (Auto) 1.24 K/uL (0.11-0.59) H 12/19/23 Eosinophils # (Auto) 0.03 K/uL (0.00-0.50) 12/19/23 Basophils # (Auto) 0.03 K/uL (0.00-0.20) 12/19/23 Immature Granulocyte # (Auto) 0.05 K/uL (0.01-0.20) 4 Na 137 mmol/L (136-145) 12/20/23 K 4.7 mmol/L (3.5-5.1) 12/20/23 Cl 103 mmol/L (98-107) 12/20/23 CO2 27 mmol/L (21-32) 12/20/23 Anion Gap 7 (3-11) 12/20/23 BUN 64 mg/dl (6-23) H 12/20/23 Creatinine 5.38 mg/dl (0.6-1.4) H* 12/20/23 Estimated GFR ( Amer) 10.8 ml/min 12/20/23 Estimated GFR (Non-Af Amer) 9.3 ml/min 12/20/23 BUN/Creatinine Ratio 11.9 (10-20) 12/20/23 Glu 111 mg/dl (70-99(Fasting)) H 12/20/23 Ca 9.8 mg/dl (8.6-10.3) 12/20/23 Mg 2.0 mg/dl (1.7-2.4) 12/19/23 21:54 Calcium Level 9.8 mg/dl (8.6-10.3) 12/20/23 06:57 Prothromb Time International Ratio 1.9 (0.9-1.1) H 12/20/23 06 :57 Arterial Blood pH 7.24 (7.35-7.45) L 12/19/23 21:54 Arterial Blood Partial Pressure CO2 59 mmHg (35-46) H 12/19/23 21:54 Arterial Blood Partial Pressure O2 74 mmHg (80-95) L 12/19/23 2 1:54 Arterial Blood HCO3 25 mmol/L (19-24) H 12/19/23 21:54 Arterial Blood Base Excess -3.1 mEq/L (-9-1.8) 12/19/23 21:54 Arterial Blood Oxygen Saturation 97.4 % (90-95) H 12/19/23 21:5 4 Blood Gas Oxygen Given 50 12/19/23 21:54 Eddie Test Pos (Pos) 12/19/23 21:54 Microbiology 12/17/23 18:20 Aerobic Blood Culture - Preliminary Blood No growth in Aerobic bottle after 48 hours. Anaerobic Blood Culture - Preliminary No growth in Anaerobic bottle after 48 hours. 12/17/23 16:51 Aerobic Blood Culture - Preliminary Blood No growth in Aerobic bottle after 48 hours. Anaerobic Blood Culture - Preliminary No growth in Anaerobic bottle after 48 hours. 12/17/23 22:37 Urine Culture - Preliminary Urine,Clean Catch Pin-point growth present, reincubating. Diagnostic Findings (Past 24 Hours) Chest X-Ray 12/18/23 19:26 XR chest 1V portable CLINICAL HISTORY: sob TECHNIQUE: Single frontal radiograph of the chest was obtained. Comparison: Comparison is made to chest radiograph 12/17/2023 FINDINGS: No lines and tubes are seen. Calcified aortic knob is seen. Multifocal airspace opacities are seen. No evidence of pleural effusion or pneumothorax. IMPRESSION: Redemonstration of multifocal airspace opacities, not significantly changed, compatible with pneumonia. ACT 112: Negative or not required by law. Electronically signed by: Keith Khoury M.D. 12/19/2023 9:22 AM I & O Totals 24 Hours 12/19/23 12/20/23 12/21/23 06:59 06:59 06:59 Intake Total 1869 / 1869 550 / 550 Output Total 877 / 877 Balance 992 / 992 550 / 550 Cumulative 12/17/23 16:35 thru 12/20/23 03:24 Intake Total 3219 Output Total 1727 Balance 1492 RT Ventilator Mngmt (Last Documented) Ventilator Ordered Settings Respiratory Rate 20 12/20/23 07:34 Fraction of Inspired Oxygen 90 12/20/23 07:34 Ventilator - PT Measurements Respiratory Rate 20 PG Care Time/CCT Total # of Minutes Spent Total Time Spent with Patient: Total time spent is greater than 50% in coordination of care (as documented) at patient's floor/unit and/or counseling patient: Coding Level of Care Code 78214 SUB INP/OBS CARE 3/50MIN Diagnoses Multifocal pneumonia J18.9 Acute respiratory failure with hypoxia and hypercapnia J96.01; J96.02 Acidosis E87.20
--- NOTE | 2023-12-20 10:31 | CT Scan Report ---
HEAD CT NONCONTRAST CT DOSE: 703.85 mGy.cm HISTORY: Confusion. R/o acute event. On AC TECHNIQUE: Multiaxial CT images of the head were performed without the use of intravenous contrast. A utomated exposure control was utilized for this study. A dose lowering technique was utilized adheri ng to the principles of ALARA. Comparison: None. Findings: Small retention cyst within the right maxillary sinus. The mastoid air cells are clear. Mot ion artifact near the skull base. This results in suboptimal evaluation. The calvarium and skull base are intact. The ventricles and sulci are within normal limits. There is no mass, hematoma, midline s hift, or acute infarct. Impression: Motion artifact. No definite acute intracranial abnormality. ACT 112: Negative or not required by law. Electronically signed by: Taqueria Johnson M.D. 12/20/2023 10:30 AM
--- NOTE | 2023-12-20 11:12 | Hospitalist Progress Note ---
Date of Service December 20, 2023 Assessment & Plan (1) Acute respiratory failure with hypoxia and hypercapnia: (2) Multifocal pneumonia: (3) CKD (chronic kidney disease) stage 5, GFR less than 15 ml/min: (4) BPH (benign prostatic hyperplasia): (5) Hypertension: (6) CAD (coronary artery disease): (7) Anticoagulated on Coumadin: (8) Metabolic encephalopathy: (9) Acidosis: Plan 77 year old male who presented to the ED with weakness and shortness of breath Acute hypoxic and hypercarbic respiratory failure Multifocal pneumonia Metabolic acidosis Worsening renal disease, CKD 5 Hyperkalemia On admission, ABG 7.18/73/57 WBC 13, Hb 9.6, K 5.4, Cr 7.1, Trop -88.4->>116->100. Procal 0.7 RVP is negative CXR with multifocal PNA. CT chest showed diffuse bilateral airspace opacities concerning for atypical infection and or aspiration, small bilateral pleural effusion Currently on Levofloxacin, flagyl Has allergy to cephalosporins Pulm recs noted Nondestructive Tester noted inability to use recent AVF and consulted Vascular surgeon for HD catheter placement Vascular placed temp right femoral HD catheter for now Continue HD per Nephro Currently on lasix drip per Nephro. Down 2.3Kg from yesterday Wean oxygen as tolerated Urine cultre growing GNR Urinary tract infection Continue antibiotics as above. 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 Need tunneled HD catheter BPH s/p TURP Continue finasteride Elevated trop Due to demand ischemia in setting of worsening renal function HTN Home amlodipine stopped DVT ppx- Warfarin on hold. Need tunneled HD cath I spent a total of 50 minutes coordinating, documenting and providing care for this patient excluding time spent in performance of separately billed services Admission and Anticipated Discharge Date Admission Date: December 17, 2023 Subjective Patient seen and examined Reports not coughing much today Still on HFNC More confused. RN also noted he was confused last night Physical Exam Constitutional: + ill appearing and + well hydrated; no acute distress Eyes: PERRL, conjunctivae normal, anicteric sclerae ENMT: On HFNC Respiratory: normal respiratory effort Diminished breath sounds Cardiovascular: Rate/Rhythm: regular rate and regular rhythm Gastrointestinal (Abdomen): normal bowel sounds, soft, nontender, no hepatosplenomegaly Neurologic: PERRL, EOMI, accommodation nl, no face palsy, no dysarthria Psychiatric: AOx3. Confused Genitourinary: Contreras in situ Results & Data Results & Data Vital Signs (Past 12 Hours) Vital Signs Temp Pulse Pulse Resp BP Pulse Ox O2 Del Method 12/20/23 10:38 86 18 91 High Flow Nasal Cannula 12/20/23 07:34 86 20 92 High Flow Nasal Cannula 12/20/23 07:00 36.5 C 86 20 102/61 90 High Flow Nasal Cannula 12/20/23 03:39 88 20 93 High Flow Nasal Cannula 12/20/23 03:28 36.9 C 88 20 105/57 L 93 High Flow Nasal Cannula 12/20/23 00:37 121/67 12/19/23 23:26 88 21 94 High Flow Nasal Cannula O2 Flow Rate FiO2 12/20/23 10:38 50 90 12/20/23 07:34 50 90 12/20/23 07:00 12/20/23 03:39 50 90 12/20/23 03:28 50 95 12/20/23 00:37 12/19/23 23:26 50 90 Laboratory Results Abnormal lab results 12/19/23 12/20/23 Range/Units 21:54 06:57 RBC 2.61 L 2.67 L (4.70-6.10) M/uL Hgb 8.0 L 8.0 L (14.0-18.0) g/dl Hct 26.1 L 27.0 L (42.0-52.0) % MCV 101.1 H (80.0-100.0) fL MCHC 30.7 L 29.6 L (32.0-36.0) g/dL RDW Std Deviation 54.7 H 54.5 H (36.4-46.3) fL RDW Coeff of Grace 15.0 H 14.9 H (11.5-14.5) % Lymph # (Auto) 0.56 L (1.20-3.40) K/uL Kimble # (Auto) 1.24 H (0.11-0.59) K/uL PT 19.8 H (9.0-12.0) Seconds INR 1.9 H (0.9-1.1) ABG pH 7.24 L (7.35-7.45) ABG pCO2 59 H (35-46) mmHg ABG pO2 74 L (80-95) mmHg ABG HCO3 25 H (19-24) mmol/L ABG O2 Saturation 97.4 H (90-95) % Sodium 135 L (136-145) mmol/L BUN 47 H D 64 H (6-23) mg/dl Creatinine 4.47 H D 5.38 H* D (0.6-1.4) mg/dl Glucose 110 H 111 H (70-99(Fasting)) mg/dl
--- NOTE | 2023-12-20 13:08 | Nephrology Progress Note ---
Date of Service December 20, 2023 Assessment & Plan Admission and Anticipated Discharge Date Admission Date: December 17, 2023 Subjective Subjective (1) CKD (chronic kidney disease) stage 5, GFR less than 15 ml/min: longstanding CKD 5 now presenting w/ acute respiratory failure, volume overload, and metabolic encephalopathy in the setting of Acute b/l Pneumonia as the final trigger. 2hr dialysis yesterday and 3 hr today. BP now better but still borderline. urine not so much even with lasix drip of 10mg/hr. He still makes urine so will give another lasix 100 mg iv x 1 + metolazone 5 mg and then raise lasix drip to 20mg /hr he has temp HD cath in groin. will do dialysis likely in AM through the temp cath Will need Tunnelled HD cath this week and remove groin HD cath Arrangements for Dialysis in center at [facility] under my care. Will keep him NPO just in case (2) Acute respiratory failure with hypoxia and hypercapnia: from b/l pneumonia and volume overload. even now needing 50 lit o2. has to be lot less before ready for discharge as per hospitalist and pulmonary (3) Metabolic encephalopathy: should improve w/ HD and w/ treatment of pneumonia. CT head fine Plan discussed with hospitalist S---Still needing lot of o2 but slightly less than yesterday. More lucid in conversation. had dialysis yesterday and we did take 2.5 kilo off. Did give him midodrine and 25% alb and got better. urine not so much even with lasix drip of 10mg/hr. Physical Exam Constitutional: well developed and well nourished Eyes: EOM intact bilaterally ENMT: Ears: no external ear abnormality Nose: no external nose abnormality Mouth: + dry oral mucous membranes Neck: no nuchal rigidity Respiratory: b/l crcakles and wheezing + diminished lung sounds Gastrointestinal (Abdomen): Inspection/Auscultation: normal bowel sounds Percussion/Palpation: abdomen soft; abdomen nontender Musculoskeletal: Extremities: strength 5/5 throughout Skin: no rashes, warm and dry Neurologic: ford, fluent speech, no tremor Results & Data Vital Signs (Past 12 Hours) Vital Signs Temp Pulse Pulse Resp BP Pulse Ox O2 Del Method 12/20/23 11:00 36.9 C 88 20 114/62 94 High Flow Nasal Cannula 12/20/23 10:38 86 18 91 High Flow Nasal Cannula 12/20/23 07:34 86 20 92 High Flow Nasal Cannula 12/20/23 07:00 36.5 C 86 20 102/61 90 High Flow Nasal Cannula 12/20/23 03:39 88 20 93 High Flow Nasal Cannula 12/20/23 03:28 36.9 C 88 20 105/57 L 93 High Flow Nasal Cannula O2 Flow Rate FiO2 12/20/23 11:00 12/20/23 10:38 50 90 12/20/23 07:34 50 90 12/20/23 07:00 12/20/23 03:39 50 90 12/20/23 03:28 50 95
[2023-12-20] MEDS: metOLazone 5 MG TABLET PO ONE (14:09)
[2023-12-20] MEDS: FUROSEMIDE 40 MG/4 ML VIAL IV ONE (14:23)
[2023-12-20] MEDS: ACETAMINOPHEN 325 MG TAB PO PRN (22:41)
[2023-12-21] MEDS ORDERED: SODIUM CHLORIDE 0.9% 1,000 ML IV PRN (07:00)
[2023-12-21 08:36] LABS: BUN Creatinine Ratio 12.8 (10-20); Calcium 9.6 mg/dl (8.6-10.3); Creatinine Clr Calc Pharmacy 9.5 ml/min; Est GFR (African American) 7.7 ml/min; Est GFR (Non-African American) 6.7 ml/min; Potassium 4.7 mmol/L (3.5-5.1)
[2023-12-21 08:44] LABS: Hematocrit (blood only) 26.2 % (42.0-52.0); Hemoglobin 7.7 g/dl (14.0-18.0); Mean Corpuscular Hgb Conc 29.4 g/dL (32.0-36.0); Mean Corpuscular Volume 101.9 fL (80.0-100.0); Mean Platelet Volume 10.3 fL (9.4-12.4); Platelet Count 219 K/uL (130-400); RDW Coefficient of Variation 14.7 % (11.5-14.5); RDW Standard Deviation 54.8 fL (36.4-46.3); Red Blood Count 2.57 M/uL (4.70-6.10); White Blood Count 10.06 K/ul (4.8-10.8)
[2023-12-21 09:00] LABS: INR 1.7 (0.9-1.1)
[2023-12-21] MEDS: EPOETIN ALFA 20,000 UNITS/ML VIAL IV SCH (09:41)
[2023-12-21] MEDS: IRON SUCROSE 200 MG in SYRINGE 0 ML IV SCH (09:41)
[2023-12-21] MEDS: MIDODRINE HCL 10 MG TAB PO STA (09:41)
[2023-12-21] MEDS: ALBUMIN 25% 12.5 GM/50 ML VIAL IV SCH (09:46)
--- NOTE | 2023-12-21 10:06 | Dialysis Progress Note ---
Date of Service December 21, 2023 Assessment & Plan Admission and Anticipated Discharge Date Admission Date: December 17, 2023 Subjective Subjective (1) CKD (chronic kidney disease) stage 5, GFR less than 15 ml/min: longstanding CKD 5 now presenting w/ acute respiratory failure mainly from Pneumonia, volume overload, and metabolic encephalopathy in the setting of Acute b/l Pneumonia as the final trigger. 2hr dialysis and then 3 hr urine not so much even with lasix drip of 20mg/hr + metolazone and lasix 100 iv. I dont think there is much fluid overload given the response. mainly pulm issues. Stop lasix drip. Use lasix 80 iv q8h he has temp HD cath in groin. Continue dialysis -aim for 2 kilo and 2 k bath Will need Tunnelled HD cath this week and remove groin HD cath Arrangements for Dialysis in center at [facility] under my care. Will keep him NPO just in case (2) Acute respiratory failure with hypoxia and hypercapnia: from mainly b/l pneumonia and mild component of volume overload. even now needing 45 lit o2. Fluid overload responds lot quicker than this so I think this is mainly Pulmonary issue has to be lot less before ready for discharge as per hospitalist and pulmonary (3) Metabolic encephalopathy: should improve w/ HD and w/ treatment of pneumonia. CT head fine Plan discussed with hospitalist S---Seen during Dialysis. BP already low. Still needing lot of o2 but slightly less than yesterday. More lucid in conversation. urine not so much even with lasix drip of 20mg/hr. Physical Exam Constitutional: well developed and well nourished Eyes: EOM intact bilaterally ENMT: Ears: no external ear abnormality Nose: no external nose abnormality Mouth: + dry oral mucous membranes Neck: no nuchal rigidity Respiratory: b/l crcakles and wheezing + diminished lung sounds Gastrointestinal (Abdomen): Inspection/Auscultation: normal bowel sounds Percussion/Palpation: abdomen soft; abdomen nontender Musculoskeletal: Extremities: strength 5/5 throughout Skin: no rashes, warm and dry Neurologic: ford, fluent speech, no tremor Results & Data Vital Signs (Past 12 Hours) Vital Signs Temp Pulse Pulse Pulse Resp BP Pulse Ox 12/21/23 09:31 21 90 12/21/23 08:09 36.3 C L 85 20 108/67 90 12/21/23 08:00 12/21/23 07:12 80 20 92 12/21/23 04:27 12/21/23 04:04 80 20 91 12/21/23 03:03 36.6 C 82 18 95/56 L 93 12/20/23 22:31 20 92 12/20/23 22:28 37.9 C H 89 18 97/56 L 92 O2 Del Method O2 Flow Rate FiO2 12/21/23 09:31 High Flow Nasal Cannula 45 100 12/21/23 08:09 High Flow Nasal Cannula 45 99 12/21/23 08:00 High Flow Nasal Cannula 45 90 12/21/23 07:12 High Flow Nasal Cannula 45 100 12/21/23 04:27 High Flow Nasal Cannula 45 100 12/21/23 04:04 Free Flow/Blow-by 45 90 12/21/23 03:03 High Flow Nasal Cannula 90 45 12/20/23 22:31 High Flow Nasal Cannula 45 90 12/20/23 22:28 High Flow Nasal Cannula 90 45
[2023-12-21] MEDS ORDERED: FUROSEMIDE 40 MG/4 ML VIAL IV SCH (10:30)
[2023-12-21] MEDS ORDERED: NOREPINEPHRINE/D5W 4 MG/250 ML IV ONE (10:35)
[2023-12-21] MEDS: NOREPINEPHRINE/D5W 4 MG/250 ML PLCT IV SCH (10:50)
[2023-12-21] MEDS ORDERED: STAT IV Infusion **Titration per Protocol STA ×2 (10:56→13:15)
--- NOTE | 2023-12-21 10:56 | Critical Care Consultation ---
Date of Consultation December 21, 2023 Assessment & Plan (1) Metabolic encephalopathy: (2) Respiratory acidosis: (3) Hypoxia: (4) CKD (chronic kidney disease) stage 5, GFR less than 15 ml/min: (5) Multifocal pneumonia: (6) Acute respiratory failure with hypoxia and hypercapnia: (7) Acidosis: Plan Assessment: 78 yo who presented with end stage renal disease on HD, HTN, BPH s/p TURP hx of TAVR for severe on warfarin, admitted to the ICU for acute hypoxemic respiratory failure with multifocal pneumonia and hypotension Critical care indication: need for pressor support Plan: Neurologic CAM ICU negative Metabolic encephalopathy CT head negative for acute abnormalities Cardiac Hypotension - currently on Levophed Echo reviewed S/p TAVR for severe Elevated troponin secondary to demand ischemia- Repeat troponin / EKG Respiratory Acute on chronic hypoxemic and hypercarbic respiratory failure. ABG ph 7.16, pCO2 68, HCO3: 24 Placed on mechanical ventilation. Multifocal pneumonia on IV Zosyn and Zithromax. Continue incentive spirometry and flutter valve Bronchoalveolar lavage performed. Specimen sent to lab. Follow cultures Gastrointestinal Diet: NPO Renal/electrolytes Replete electrolytes as needed History of CKD, recently diagnosed with ESRD and volume overload on this admission. Currently on HD Nephrology consulted Genitourinary No concerns at this time Contreras catheter draining normal-appearing urine at this time Strict I/O's Urinary tract infection - Urine culture growing pseudomonal resistant to Levo and cipro Endocrine BSG stable Continue ISS per protocol Hematologic Hgb stable at this time Follow daily CBC Infectious disease Multifocal pneumonia s/p Levofloxacin and flagyl, switch to Zosyn and Azithromycin Blood culture: negative for 48hrs Urine culture growing pseudomonal resistant to Levo and cipro Integumentary No concerns at this time Prophylaxis DVT ppx: Warfarin Thank you the opportunity to participate in this patient's care. Please see attending documentation for further recommendations. Supervising Physician Co-Signing Physician Notes Patient seen and examined with the resident physician. Agree with the assessment and plan aside for any additions/exceptions noted: Unfortunately patient's mental status and respiratory status continued to decline. Blood gas was obtained which revealed hypercapnic and hypoxemic respiratory failure. I discussed this with the patient's at bedside. We elected to proceed with semiurgent intubation and bronchoscopy. Intubation bronchoscopy performed without any major issues. Culture sent from the bronchoscopy sample. Broad-spectrum antibiotics will be continued. Patient will be transferred to tertiary center and has been accepted to [facility] for continuous renal replacement therapy. We have augmented his antibiotics from Flagyl and Levaquin to Zosyn and azithromycin. His Pseudomonas in his urine was resistant to levofloxacin. Will hold anticoagulation at this period of time. As noted above, patient's updated extensively. Also discussed with hospitalist service and coordinating care with RT and nursing. History of Present Illness Attending Physician: Etelvina Odell MD History of Present Illness 78 y/o male presented with end stage renal disease on HD, HTN, BPH s/p TURP hx of TAVR for severe on warfarin, here due to acute hypoxemic respiratory failure with multifocal pneumonia with fluid overload.. Recently diagnosed with ESRD on dialysis started on this admission. Patient had been treated with IV Levofloxacin and Flagyl for pneumonia. Found with metabolic encephalopathy. This morning O2 sat drop while on dialysis and a rapid was called. Vital signs pertinent with tachycardic and hypotension. Currently on BIPAP. Will transfer patient to ICU for vasopressor and further management. Low threshold for escalate to mechanical ventilation. Nephrology on case managing HD. Allergies Allergy/AdvReac Type Severity Reaction Status Date / Time cephalexin Allergy Severe Tongue and Verified 11/24/23 07:00 face swelling tamsulosin Allergy Severe angioedema Verified 11/24/23 07:00 Home Medications Medication Instructions Recorded Confirmed Type amlodipine 5 mg tablet 5 mg PO HS 07/26/18 12/17/23 History atorvastatin 80 mg tablet 80 mg PO HS 07/01/22 12/17/23 History finasteride 5 mg tablet 5 mg PO HS 07/01/22 12/17/23 History aspirin 81 mg chewable tablet 81 mg PO HS 07/04/22 12/17/23 History [id number]-[id number]-Po-FA 1 mg 1 tab PO HS 07/04/22 12/17/23 History tablet calcitriol 0.5 mcg capsule 0.5 mcg PO 3XWK 04/28/23 12/17/23 History calcium acetate(phosphat bind) 667 667 mg PO TID 12/17/23 12/17/23 History mg capsule ciprofloxacin HCl 500 mg tablet 500 mg PO DAILY 12/17/23 12/17/23 History fluocinonide 0.05 % topical 0.05 applic topical DAILY 12/17/23 12/17/23 History solution torsemide 20 mg tablet 20 mg PO DAILY 12/17/23 12/17/23 History triamcinolone acetonide 0.1 % 0.1 applic topical BID 12/17/23 12/17/23 History topical cream warfarin 5 mg tablet 5 mg PO DAILY 12/17/23 12/17/23 History Patient History Medical History (Updated 12/18/23 @ 13:49 by Zane Foote MD) Anemia Gastric nodule Type 2 diabetes mellitus NIDDM Bifascicular block ongoing since 2010 Umbilical hernia chronic per patient-denies change or worsening History of blood transfusion pre-op aortic valve replacement CAD (coronary artery disease) s/p 1 stent in 2019 HTN (hypertension) controlled, stable per pt History of diverticulitis entered into EMR 09/2022-patient states last flare was 1 year ago History of colon polyps BPH (benign prostatic hyperplasia) CKD (chronic kidney disease), stage V Arthritis Hx of bladder cancer surgery only Hyperlipidemia Surgical History History of cataract surgery left and right H/O cystoscopy History of tooth extraction Aortic valve replaced 2019 at [facility] (followed by Dr. Wei) History of heart artery stent 1 stent placed 2018 History of orchiectomy, unilateral History of arthroscopy of left knee History of colonoscopy Family History Mother Family history of diabetes mellitus Father Family hx of colon cancer Other No family history of adverse response to anesthesia Social History Smoking Status: Never smoker Tobacco Type: Cigarettes Second Hand Exposure: No; Do You Dip or Chew Tobacco: No; Tobacco Cessation Education Requested by Patient: No Hx Alcohol Use: No Hx Substance Use: No Preferred Language: Palauan Communication Ability: Effective Grinder Chipper Required: No Beliefs That Will Affect Care: None Current Living Situation: Spouse Other Information That Helps Us Care for You: No Feels Safe at Home: Yes Safety Concerns: Feels Safe At This Time Assistive Devices: Cane Review of Systems Review of Systems: as per hpi Physical Exam Constitutional: + ill appearing Eyes: PERRL, conjunctivae normal, anicteric sclerae Respiratory: Auscultation: + diminished lung sounds and + rhonchi High flow nasal cannula Cardiovascular: RRR, no murmur, no edema Gastrointestinal (Abdomen): normal bowel sounds, soft, nontender, no hepatosplenomegaly Results & Data Results & Data Vital Signs (Past 12 Hours) Vital Signs Temp Pulse Pulse Resp BP Pulse Ox O2 Del Method 12/21/23 09:31 21 90 High Flow Nasal Cannula 12/21/23 08:09 36.3 C L 85 20 108/67 90 High Flow Nasal Cannula 12/21/23 08:00 High Flow Nasal Cannula 12/21/23 07:12 80 20 92 High Flow Nasal Cannula 12/21/23 04:27 High Flow Nasal Cannula 12/21/23 04:04 80 20 91 Free Flow/Blow-by 12/21/23 03:03 36.6 C 82 18 95/56 L 93 High Flow Nasal Cannula O2 Flow Rate FiO2 12/21/23 09:31 45 100 12/21/23 08:09 45 99 12/21/23 08:00 45 90 12/21/23 07:12 45 100 12/21/23 04:27 45 100 12/21/23 04:04 45 90 12/21/23 03:03 90 45 Resident Activity Tracking Resident Involvement: Resident Care Provided Care Provided: Adult Hospital Medicine
[2023-12-21] MEDS: CALCITRIOL 0.25 MCG CAPSULE PO SCH (11:13)
[2023-12-21] MEDS ORDERED: AZITHROMYCIN 250 MG in DEXTROSE 5% 250 ML IV STA (11:31)
[2023-12-21 11:37] LABS: iSTAT Allen Test Pass; iSTAT Art Bld Gas pCO2 Correct 68 mmHg (35-46); iSTAT Art Bld Gas pH Corrected 7.162 (7.35-7.45); iSTAT Arterial Blood Gas HCO3 24 meg/L (19-24); iSTAT Arterial Blood Gas pCO2 68 mmHg (35-46); iSTAT Arterial Blood Gas pH 7.16 (7.35-7.45); iSTAT Arterial Blood Gas pO2 86 mmHg (80-95); iSTAT Arterial Blood Gas pO2 C 86; iSTAT Carbon Dioxide 26 mmol/L (24-31); iSTAT FiO2 80 %; iSTAT Hematocrit 22 % (42-52); iSTAT Hemoglobin 7.5 g/dl (14.0-18.0); iSTAT Potassium 4.4 mmol/L (3.3-5.0); iSTAT Site R Radial; iSTAT Sodium 134 mmol/L (135-144)
--- NOTE | 2023-12-21 11:47 | Hospitalist Progress Note ---
Date of Service December 21, 2023 Assessment & Plan Admission and Anticipated Discharge Date Admission Date: December 17, 2023 Results & Data Results & Data Vital Signs (Past 12 Hours) Vital Signs Temp Pulse Pulse Pulse Resp BP Pulse Ox 12/21/23 10:59 84 28 H 95 12/21/23 09:31 21 90 12/21/23 08:09 36.3 C L 85 20 108/67 90 12/21/23 08:00 12/21/23 07:30 84 12/21/23 07:12 80 20 92 12/21/23 04:27 12/21/23 04:04 80 20 91 12/21/23 03:03 36.6 C 82 18 95/56 L 93 O2 Del Method O2 Flow Rate FiO2 12/21/23 10:59 80 12/21/23 09:31 High Flow Nasal Cannula 45 100 12/21/23 08:09 High Flow Nasal Cannula 45 99 12/21/23 08:00 High Flow Nasal Cannula 45 90 12/21/23 07:30 12/21/23 07:12 High Flow Nasal Cannula 45 100 12/21/23 04:27 High Flow Nasal Cannula 45 100 12/21/23 04:04 Free Flow/Blow-by 45 90 12/21/23 03:03 High Flow Nasal Cannula 90 45
[2023-12-21] MEDS ORDERED: RAPID SEQUENCE INDUCTION BAG ONE (11:53)
--- NOTE | 2023-12-21 12:35 | Procedure Note ---
Procedure Note Date of Service December 21, 2023 Note INTUBATION PROCEDURE NOTE: Dr. Aleksandar Narvaez A time-out was completed verifying correct patient, procedure, site, positioning. Patient was evaluated and required intubation for hypoxemic respiratory failure and acute encephalopathy. Sedative agent used: 100 mg of ketamine, 10 mg of etomidate Paralysis agent used: 50 mg of rocuronium Consent was signed by the patient's and placed on the chart. Timeout performed immediately prior to the procedure. Number of attempts: 1 Grade view: Not applicable The patient was prepared in the appropriate fashion. Sedation was achieved utilizing etomidate, ketamine and rocuronium. The patient was easily ventilated using [id number] to achieve adequate oxygenation. A 8.0 Spanish endotracheal tube was placed under GlideScope guided to 25 cm at the lip. The stylette was removed and balloon was inflated with 10mL of air. Appropriate Colorimetric change was appreciated. Bilateral breath sounds were heard without air sounds in the abdomen. Post Intubation Chest X-ray ordered and is pending. Patient tolerated the procedure well and there were no immediate complications. Coding CPT Codes Resuscitation - Resuscitation: 20354 Endotracheal Intubation, emergency ([id number]) [facility] [place] ([place]arges) Resuscitation Resuscitation: 37797 Endotracheal Intubation, emergency
--- NOTE | 2023-12-21 12:41 | Procedure Note ---
Procedure Note Date of Service December 21, 2023 Note PREOPERATIVE DIAGNOSIS: Acute hypoxemic respiratory failure with multifocal infiltrates POSTOPERATIVE DIAGNOSIS: Same as above PROCEDURE PERFORMED: Flexible fiberoptic bronchoscopy with bronchial washings from the right lower lobe COMPLICATIONS: None. INDICATION: Acute hypoxemic respiratory failure multifocal pneumonia. Consent was obtained from the patient's as the patient was intubated and sedated. Timeout performed immediately prior to procedure. PROCEDURE: Immediately after intubation, I proceeded with bronchoscopy. Patient was ventilated with 100% oxygen on invasive mechanical ventilation. Bronchoscope was inserted via the endotracheal tube adapter. The tip of the endotracheal tube appeared approximately 4 cm above the ashly. The ashly appeared sharp. I inspected the bilateral tracheobronchial tree. Thick yellow and green secretions were noted throughout the tracheobronchial tree and worse in the right lower lobe. These were suctioned and sent for culture. Approximately 100 mL of saline was used for washings. Patient tolerated the procedure well. The scope was then withdrawn to the level ashly. No bleeding was seen. The scope was then completely withdrawn and the patient tolerated the procedure well. Recommendations: Follow cultures, cytology and cell counts from bronchoscopy data. Coding CPT Codes Pulmonary/Thoracic - Pulmonary and Thoracic: 56843 Dx bronchoscopy/wash ([id number]) [facility] [place] Procedure Codes (Charges) Pulmonary/Thoracic Procedure 1: Pulmonary and Thoracic: 61739 Dx bronchoscopy/wash
--- NOTE | 2023-12-21 12:47 | Billing Data ---
Date of Service December 21, 2023 CRITICAL CARE TIME - I have personally spent 49 minutes of critical care time in the direct management of this patient. This is a life/limb threatening event. This includes time spent evaluating patient, direct bedside care, chart review, placing orders, interpretation of diagnostic studies, discussion with consultants, patient, and family members, as well as other required patient management activities. This time is exclusive of all separately billable procedures, and teaching time and separate from and in addition to any other critical care service time. Coding Level of Care Code 90768 CRITICAL CARE 1ST 30-74M
--- NOTE | 2023-12-21 13:09 | Discharge Summary ---
Date of Service December 21, 2023 Admission HPI Per Admitting Provider This is a 77-year-old male who has a significant past medical history of CAD with history of [place] to left circumflex, HTN, HLD, T2DM, hyperparathyroidism, history of TAVR secondary to aortic valve stenosis, CKD stage V with creation of left upper extremity AV fistula not yet mature who presents to ED secondary to worsening shortness of breath and lethargy x 2 days. is at bedside who elicits most of history. Patient was seen and evaluated in nephrology clinic at [facility] for an acute appointment due to worsening shortness of breath and lethargy. was uncertain if related to kidney therefore made an appointment with nephrology. In clinic patient was referred to ED for further evaluation. states over the last 2 to 3 days she has noticed increasing shortness of breath, urinary frequency, lethargy and confusion. She states this is very unlike him. She denies any known fever, cough, chest pain, nausea, vomiting, abdominal pain, dysuria, hematuria, melena or hematochezia. There are no known sick contacts. He does not smoke or use any alcohol currently. In ED patient was noted to be hypoxic at 65% in triage and which is improved with oxy mask and 10 L of oxygen. lab work was notable for leukocytosis at 13.8 K, H&H 9.6 and 31.8, respiratory acidosis with a pH of 7.18 and CO2 of 57, potassium 5.4, BUN/creatinine 97 and 7.10, procalcitonin 0.71 and BNP 587. His respiratory bio fire was negative. Chest x-ray revealed multifocal airspace opacity compatible with pneumonia. He received IV Levaquin and was recommended for admission. Admission Exam Per Admitting Provider General: Lying comfortably in bed, not in acute distress, on oxymask HEENT: EOMI, LEAH, MMM Chest: Fair breath sounds bilaterally with scattered wheezes CVS: Regular rate and rhythm, normal heart sounds Abdomen: Soft, non tender, not distended, normal bowel sounds Neuro: Awake, alert, oriented, conversing well, non focal Extremities: No edema Principal Diagnosis Severe sepsis Multifocal pneumonia Acute respiratory failure ESRD on hemodialysis Discharge Exam Constitutional Intubated and sedated Eyes Sedated ENMT ETT in situ Respiratory Intubated, +crackles Cardiovascular Rate/Rhythm: regular rate and regular rhythm S1 S2 Gastrointestinal (Abdomen) normal bowel sounds, soft, nontender, no hepatosplenomegaly Neurologic Intubated and sedated Discharge Data Allergies Allergy/AdvReac Type Severity Reaction Status Date / Time cephalexin Allergy Severe Tongue and Verified 11/24/23 07:00 face swelling tamsulosin Allergy Severe angioedema Verified 11/24/23 07:00 Consultations 12/17/23 18:23 ED Decision to Admit Stat 12/17/23 21:48 Consult Nephrology Routine Consult Nephrology Routine 12/18/23 08:00 Consult Pulmonology Routine 12/21/23 12:35 Burn CD for patient Stat Procedures Performed Operation Date: 12/18/23 10:05 Actual Procedures p Insertion of Temporary Dialysis Catheter to Right Femoral Vein, Ultrasound Localization of Right Femoral Vein(Right) - Arnol Whiting MD Ordered Studies 12/17/23 18:49 CT chest diagnostic wo con Stat 12/18/23 13:18 EV cvc insrt tunnel wo prt/ladle mechanic Routine US EV guide vascular access Routine 12/20/23 09:23 CT head/brain wo con Urgent Hospital Course (1) Acute respiratory failure with hypoxia and hypercapnia: (2) Multifocal pneumonia: (3) CKD (chronic kidney disease) stage 5, GFR less than 15 ml/min: (4) BPH (benign prostatic hyperplasia): (5) Hypertension: (6) CAD (coronary artery disease): (7) Anticoagulated on Coumadin: (8) Metabolic encephalopathy: (9) Acidosis: Plan 77 year old male who presented to the ED with weakness and shortness of breath Severe sepsis Acute hypoxic and hypercarbic respiratory failure Multifocal pneumonia Metabolic acidosis Worsening renal disease, CKD 5 Hyperkalemia On admission, ABG 7.18/73/57 WBC 13, Hb 9.6, K 5.4, Cr 7.1, Trop -88.4->>116->100. Procal 0.7 RVP is negative CXR with multifocal PNA. CT chest showed diffuse bilateral airspace opacities concerning for atypical infection and or aspiration, small bilateral pleural effusion Was on Levofloxacin, flagyl Has allergy to cephalosporins Machine Filler Servicer noted inability to use recent AVF and consulted Vascular surgeon for HD catheter placement Vascular placed temp right femoral HD catheter for now Urine culture growing pseudomonas today Urinary tract infection Metabolic encephalopathy CT head did not show acute abnormalities History of TAVR for severe INR is 1.7 today Warfarin was being held for tunneled HD catheter Elevated trop Due to demand ischemia in setting of worsening renal function Home amlodipine was on hold due to BP trends Patient had a Rapid Response shortly after starting HD this morning BP dropped to santosh of 66/34 with HD HD was stopped Patient was admitted to ICU Was intubated and bronch I called transfer center and spoke to ICU team due to need for CRRT Patient was accepted for transfer I called and updated her Total Time Total Time Spent Total Time Spent (In Minutes): 55 Total Time Includes: Examination of the Patient, Discharge Planning, Medication Reconciliation, Communication With Other Providers and Other Discharge Plan Discharge Items Patient Disposition: Transfer Acute [facility] Reason For Visit: ACUTE HYPOXIC RESPIRATORY FAILURE Discharge Diagnosis: Septic shock Multifocal pneumonia Acute respiratory failure ESRD on hemodialysis Activity: As commented below Non-emergency contact: Primary Care Provider Call non-emergency contact if: you have any medication questions Follow-up/Referrals: Mike Maki MD [Primary Care Provider] - Diet: Nothing by Mouth Addtl Attending Provider Instructions: Mr Bach You were admitted to the hospital and managed for the above listed diagnoses. You are being transferred to [facility] due to need for CRRT. Pending Studies at Discharge: No Stand-Alone Forms: My [facility] Skilled Items Patient informed of condition?: No DNR: No Discharge Level of Care: Other Communicable Disease: No Discharge Prognosis: Other Lines: Peripheral IV Urinary Catheter: Yes Medications and DC Order Prescriptions: New ipratropium-albuterol 0.5 mg-3 mg(2.5 mg base)/3 mL Solution For Nebulization 3 ml NEB Q4H PRN (Reason: shortness of breath) Qty: 90 0RF Continued atorvastatin 80 mg tablet 80 mg PO HS finasteride 5 mg tablet 5 mg PO HS calcitriol 0.5 mcg Capsule 0.5 mcg PO 3XWK [id number]-[id number]-Wf-FA 1 mg Tablet 1 tab PO HS aspirin 81 mg Tablet,Chewable 81 mg PO HS torsemide 20 mg tablet 20 mg PO DAILY triamcinolone acetonide 0.1 % cream 0.1 applic TOPICAL BID fluocinonide 0.05 % solution 0.05 applic TOPICAL DAILY calcium acetate(phosphat bind) 667 mg Capsule 667 mg PO TID warfarin 5 mg tablet 5 mg PO DAILY Discontinued amlodipine 5 mg Tablet 5 mg PO HS ciprofloxacin HCl 500 mg tablet 500 mg PO DAILY Discharge Orders: Discharge Order (Routine); Ordered 12/21/23 Ordered By: Etelvina Odell Admission Data Admit Date/Time: 12/17/23 18:48 Attending Provider: Etelvina Odell I. Admit Provider: Bernardino Flynn Primary Care Provider: Mike Maki Other Providers: Bernardino Flynn; Shimon Paulino; Norma Vargas; Greg Shelton Other Interventions: Discharge Summary Assessment (RN) Last Done: 12/21/23 11:53
[2023-12-21] MEDS ORDERED: PROPOFOL IV EMULSION 10 MG/ML 100 ML VIAL IV ONE (13:13)
[2023-12-21] MEDS ORDERED: PROPOFOL BOLUS FROM BAG IV PRN (13:15)
[2023-12-21] MEDS ORDERED: propofoL 1,000 MG/100 ML VIAL IV SCH (13:15)
[2023-12-21] MEDS: PIPERACILLIN/TAZOBACTAM 4.5 GM in DEXTROSE 5% MINI-B 100 ML IV STA (13:17)
[2023-12-21] MEDS: PROPOFOL IV EMULSION 10 MG/ML 100 ML VIAL IV ONE (13:18)
[2023-12-21] MEDS: VECURONIUM BROMIDE 10 MG VIAL IV STA (13:38)
[2023-12-21] MEDS: VECURONIUM BROMIDE 10 MG VIAL IV ONE (13:38)
--- NOTE | 2023-12-21 13:45 | XRay Report ---
SINGLE VIEW CHEST CLINICAL HISTORY: Pneumonia. FINDINGS: An AP, portable, upright chest radiograph is compared to study dated 12/18/2023 and correlate d with chest CT dated 12/17/2023. There is evidence of previous cardiac surgery. The heart is enlarged and noting atherosclerotic calcification of the thoracic aorta. There is pulmonary vascular congestio n. Multifocal airspace opacities are seen throughout both lungs. There are pleural effusions with dep endent consolidation clear. No pneumothorax is seen. The skeletal structures are osteopenic. The bony thorax is grossly intact. IMPRESSION: 1. Cardiomegaly with evidence of congestive failure. 2. Multifocal airspace opacities are again seen throughout both lungs, and this has progressed from . This could represent multifocal pneumonia and/or pulmonary edema. Clinical correlation will be required and radiographic follow-up to resolution is recommended. 3. Small pleural effusions. ACT 112: Negative or not required by law. Electronically signed by: Hansel Argueta M.D. 12/21/2023 1:44 PM
--- NOTE | 2023-12-21 14:15 | XRay Report ---
XR chest 1V portable HISTORY: post-intubation COMPARISON: Chest 12/21/2023. FINDINGS: Endotracheal tube terminates 3.1 cm from the ashly. No pneumothorax. Calcifications within the aortic knob. An aortic valve prosthesis is noted. Diffuse interstitial thickening, bilateral air space opacities, and small bilateral pleural fusions persists. This could represent severe pulmonary edema and/or multifocal pneumonia. IMPRESSION: 1. The endotracheal tube terminates 3.1 cm from the ashly. 2. No significant change in the severe pulmonary edema, small bilateral pleural effusions, and bilate ral airspace opacities. ACT 112: Negative or not required by law. Electronically signed by: Taqueria Johnson M.D. 12/21/2023 2:14 PM
[2023-12-21] MEDS ORDERED: PIPERACILLIN/TAZOBACTAM 4.5 GM in DEXTROSE 5% MINI-B 100 ML IV SCH (18:00)
[2023-12-21] MEDS ORDERED: levoFLOXacin/D5W 250 MG/50 ML BAG IV SCH (18:00)
--- NOTE | 2023-12-22 11:31 | Coding Query ---
CODING QUERY To promote full compliance with coding requirements relating to patient care, provider participation is requested in all cases of gang punch operator uncertainty. Please assist us with the question(s) below: Clinical Indicators: H&P: * Acute hypoxic respiratory failure * Multifocal pneumonia * Respiratory acidosis * Metabolic encephalopathy * ABG 7.18/73/57 * Temp - 36.6; Pulse - 92; Resp - 27; BP - 121/101; Pule Ox - 93 * WBC - 13 * Procal - 0.7 * Renally dosed Levaquin given Discharge Summary: * Discharge Diagnosis: Septic shock Coding Question(s): Based on the above clinical indicators, are you able to clarify if the sepsis was: (x ) Present on admission ( ) Not present on admission ( ) Other (please specify) ( ) Unable to determine. Thank you Mae Lizama Principal Diagnosis: "that condition established after study, to be chiefly responsible for occasioning the admission of the patient to the hospital for care." Co-Existing Principal Diagnosis: "when two or more diagnoses equally meet the criteria for principal diagnosis as determined by the circumstances of admission, diagnostic work up, and/or therapy provided, and the Alphabetic Index, Tabular List, or another coding guideline does not provide sequencing direction, any one of the diagnoses may be sequenced first." "When the physician has documented what appears to be a current diagnosis in the body of the record, but has not included the diagnosis in the final diagnostic statement, the physician should be asked whether the diagnosis should be added." (Source Coding Clinic 2 QTR90. p3-4) MIL
[2023-12-22] MEDS ORDERED: AZITHROMYCIN 250 MG in DEXTROSE 5% 250 ML IV SCH (12:00)
[2023-12-23 19:52] LABS: Hepatitis B Core Antibody IgM NON-REACTIVE (NON-REACTIVE); Hepatitis BE Antibody Nonreactive; Hepatitis BE Antigen Nonreactive
[2023-12-24 09:08] LABS: Legionella DNA, Source BAL; Legionella Species DNA NOT DETECTED; Legionella pneumophila DNA NOT DETECTED
== END 2023-12-21 13:35 | disposition short-term general hospital (02) | DRG 871 ==
LOC: ED 16:35 → SUATTDRO 18:48 → 2S 18:48 → 1E 12-21 12:28

== ENCOUNTER 2024-06-08 16:00 | Inpatient (IN) ==
--- NOTE | 2024-06-08 16:08 | ED Triage Note ---
Date of Service June 08, 2024 Provider in Triage Author: Michelle Ying History of Present Illness This patient was briefly evaluated while in triage. An abbreviated physical exam was performed. This patient is a 78-year-old Male who presents to the ED for evaluation weak, dizzy, hypotensive after dialysis session this afternoon Physical Exam GENERAL: NAD, BP 95/47 CARDIOVASCULAR: RRR RESPIRATORY: CTA ABDOMEN: BS x 4. Nontender to palpation. Initial orders for labs and / or imaging were placed and patient was placed in the waiting area until a bed is available. Please see further documentation for the full ED course.
[2024-06-08 17:03] LABS: Hematocrit (blood only) 18.3 % (42.0-52.0); Hemoglobin 5.9 g/dl (14.0-18.0); Mean Corpuscular Hemoglobin 33.9 pg (25.0-34.0); Mean Corpuscular Hgb Conc 32.2 g/dL (32.0-36.0); Mean Corpuscular Volume 105.2 fL (80.0-100.0); Mean Platelet Volume 9.9 fL (9.4-12.4); Nucleated RBC # (auto) 0.02 K/uL (0.00-0.12); Nucleated RBC % (auto) 0.2 %; Platelet Count 277 K/uL (130-400); RDW Coefficient of Variation 16.2 % (11.5-14.5); RDW Standard Deviation 60.9 fL (36.4-46.3); Red Blood Count 1.74 M/uL (4.70-6.10); White Blood Count 12.57 K/ul (4.8-10.8)
[2024-06-08 17:13] LABS: Basophils # (auto) 0.06 K/uL (0.00-0.20); Basophils % (auto) 0.5 %; Eosinophils # (auto) 0.19 K/uL (0.00-0.50); Eosinophils % (auto) 1.5 %; Immature Granulocytes # (auto) 0.18 K/uL (0.01-0.20); Immature Granulocytes % (auto) 1.4 %; Lymphocytes # (auto) 1.32 K/uL (1.20-3.40); Lymphocytes % (auto) 10.5 %; Monocytes # (auto) 1.11 K/uL (0.11-0.59); Monocytes % (auto) 8.8 %; Neutrophils # (auto) 9.71 K/uL (1.40-6.50); Neutrophils % (auto) 77.3 %; Polychromasia 1+
[2024-06-08 17:14] LABS: Alanine Aminotransferase 9 U/L (7-52); Albumin Globulin Ratio 1.3 (0.9-2); Albumin Level 3.5 gm/dl (3.4-5.0); Alkaline Phosphatase 75 U/L (34-104); Anion Gap 7 (3-11); Aspartate Aminotransferase 13 U/L (13-39); BUN Creatinine Ratio 11.1 (10-20); Bilirubin,Total 0.3 mg/dl (0.2-1.0); Blood Urea Nitrogen 35 mg/dl (6-23); Calcium 9.4 mg/dl (8.6-10.3); Carbon Dioxide 29 mmol/L (21-32); Chloride 99 mmol/L (98-107); Globulin 2.7 gm/dl (2.5-4.0); Glucose 130 mg/dl (70-99(Fasting)); Magnesium 1.8 mg/dl (1.7-2.4); Potassium 3.2 mmol/L (3.5-5.1); Sodium 135 mmol/L (136-145); Total Protein 6.2 gm/dl (6.0-8.3)
--- NOTE | 2024-06-08 17:19 | XRay Report ---
EXAM: X-ray chest 1 view not portable CLINICAL HISTORY: Weakness, hypotensive PRIORS: 05/06/2024 TECHNIQUE: Portable upright AP FINDINGS: Lung volumes are mildly diminished. Mild interstitial changes noted with no pleural effusion. Mild opacification at the right cardiophrenic angle, appearing in the interval. Moderate atherosclerotic disease of the aortic knob noted. Heart size is normal. No pneumothorax. Trachea is patent. Osseous structures demonstrate no acute abnormality. No radiopaque foreign body. IMPRESSION: 1. Radiographic features favoring mild volume overload. 2. Mild opacification of the right cardiophrenic angle, appearing in the interval, possibly representing pneumonia or atelectasis in the proper clinical setting. Please correlate if there is clinical concern for pneumonia. Electronically signed by Barby Rodriguez 06-08-2024 5:19 PM
[2024-06-08 17:22] LABS: Troponin I High Sensitivity 30.8 pg/ml (0-20)
[2024-06-08 17:23] LABS: INR 3.9 (0.9-1.1); Prothrombin Time 37.5 Seconds (9.0-12.0)
[2024-06-08] MEDS ORDERED: SODIUM CHLORIDE 0.9% 100 ML IV PRN (17:37)
[2024-06-08] MEDS ORDERED: SODIUM CHLORIDE 0.9% 50 ML IV PRN (17:37)
--- NOTE | 2024-06-08 17:53 | Emergency Department Note ---
Impression & Plan Anemia, GI bleed, ESRD on dialysis ED Provider Note Diagnosis: GI bleed, anemia, end-stage renal disease Disposition: Admission CHIEF COMPLAINT: HPI: Patient is a 78-year-old male presenting with generalized weakness. Patient has end-stage renal disease gets dialysis Thursday. Patient had pretty much a full treatment today. Patient presenting with episodes of dizziness lightheadedness and weakness. Patient states he is on warfarin due to valve replacement. Patient states he does believe he had some minimal blood in stool today. Patient denies any active chest pain or shortness of breath. Patient Nuys any abdominal pain. PAST MEDICAL HISTORY: See Below PAST SURGICAL HISTORY: See Below SOCIAL HISTORY: See Below HOME MEDICATIONS: See Below ALLERGIES: See Below VITALS: See Below PHYSICAL EXAMINATION: GENERAL: Well appearing, well nourished, NAD, non-toxic. EYE EXAM: Normal conjunctiva. OROPHARYNX: Moist mucus membranes. Grossly normal dentition. NECK: Supple, LUNGS: Clear to auscultation. Normal chest wall mechanics. HEART: NSR ABDOMEN: Abdomen soft, non-tender, rectal exam performed with nurse shampoo person present, stool guaiac positive no bright red blood BACK: No CVA TTP. SKIN: No rashes and no bruising. UPPER EXTREMITIES: Upper extremities are grossly normal LOWER EXTREMITIES: Grossly normal, no edema. NEURO EXAM: A&O x3,, normal speech, moves all 4 extremities PSYCH: Cooperative MEDICAL DECISION MAKING: History obtained from: Patient, significant other ER Course: Patient is a 78-year-old male presenting with complaint of generalized weakness. Patient has end-stage renal disease gets dialysis Thursday and had all but 10 minutes of a full treatment today. Patient denies any active chest pain shortness of breath or abdominal pain. Patient's hemoglobin found to be 5.6. Patient is on warfarin due to aortic valve replacement. Patient's INR today is 3.9. Patient on rectal exam has no bright red blood but his stool is guaiac positive. Patient blood pressure responded to blood transfusion. Due to the patient having a aortic valve and no bright red blood per rectum we will hold off on reversing the warfarin unless the patient becomes hypotensive. Patient admitted to hospital service further treatment and evaluation. Labs (independently interpreted) are significant for: Hemoglobin 5.6 Imaging results (independently interpreted): Chest x-ray clear EKG interpretation (independently interpreted): Normal sinus rhythm no ST segment elevation or depression Medications given: 2 units packed red blood cells Consultants: Hospitalist Chronic conditions affecting care: Dialysis, chronic anticoagulation Triage Nursing notes reviewed and agree them. Vital Signs: reviewed and remarkable for: Systolic blood pressure 85-95 on arrival Critical care time 45 minutes, this does not include time for procedures Past Med/Surg History Problem List (Updated 06/08/24 @ 18:57 by Gumaro Arreola DO) ESRD on dialysis (Acute) GI bleed (Acute) Anemia (Acute) End-stage renal disease on hemodialysis Acidosis Hypoxia (Acute) Respiratory acidosis Metabolic encephalopathy Anticoagulated on Coumadin Multifocal pneumonia Acute respiratory failure with hypoxia and hypercapnia Diverticulitis of ascending colon UTI (urinary tract infection) Urinary tract infection due to Pseudomonas aeruginosa (Acute) CKD (chronic kidney disease) stage 5, GFR less than 15 ml/min (Acute) Colon polyps Encounter for pre-operative examination BPH (benign prostatic hyperplasia) Hypertension 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 " On 04/03/11 18:15 Norma Vargas wrote "with outflow obstruction " On 04/03/11 18:15 Norma Vargas wrote "with outflow obstruction " On 04/03/11 18:15 Norma Vargas wrote "with outflow obstruction " Absent renal function (04/03/11) Medical History Anemia Gastric nodule Type 2 diabetes mellitus NIDDM Bifascicular block ongoing since 2010 Umbilical hernia chronic per patient-denies change or worsening History of blood transfusion pre-op aortic valve replacement CAD (coronary artery disease) s/p 1 stent in 2019 HTN (hypertension) controlled, stable per pt History of diverticulitis entered into EMR 09/2022-patient states last flare was 1 year ago History of colon polyps BPH (benign prostatic hyperplasia) CKD (chronic kidney disease), stage V Arthritis Hx of bladder cancer surgery only Hyperlipidemia Surgical History History of cataract surgery left and right H/O cystoscopy History of tooth extraction Aortic valve replaced 2019 at [facility] (followed by Dr. Wei) History of heart artery stent 1 stent placed 2019 History of orchiectomy, unilateral History of arthroscopy of left knee History of colonoscopy Family History Mother Family history of diabetes mellitus Father Family hx of colon cancer Other No family history of adverse response to anesthesia Social History Smoking Status: Never smoker Tobacco Type: Cigarettes Second Hand Exposure: No; Do You Dip or Chew Tobacco: No; Hx Alcohol Use: No Hx Substance Use: No Preferred Language: [place] Communication Ability: Effective Epitaxial Reactor Technician Required: No Beliefs That Will Affect Care: None Current Living Situation: Spouse Feels Safe at Home: Yes Assistive Devices: Cane and Hearing Aid - Bilateral Allergies Allergies Allergy/AdvReac Type Severity Reaction Status Date / Time cephalexin Allergy Severe Tongue and Verified 06/03/24 10:19 face swelling tamsulosin Allergy Severe angioedema Verified 06/03/24 10:19 Home Meds Home Medications Medication Instructions Recorded Confirmed atorvastatin 80 mg tablet 80 mg PO HS 07/01/22 06/03/24 finasteride 5 mg tablet 5 mg PO HS 07/01/22 06/03/24 aspirin 81 mg chewable tablet 81 mg PO HS 07/04/22 06/03/24 [id number] 1 mg 1 tab PO HS 07/04/22 06/03/24 tablet calcium acetate(phosphat bind) 667 667 mg PO TID 12/17/23 06/03/24 mg capsule fluocinonide 0.05 % topical 0.05 applic topical DAILY 12/17/23 06/03/24 solution torsemide 20 mg tablet 20 mg PO [id number] 12/17/23 06/03/24 triamcinolone acetonide 0.1 % 0.1 applic topical BID 12/17/23 06/03/24 topical cream warfarin 5 mg tablet See Rx Instructions .Route .COMPLEX 12/17/23 06/03/24 Results & Data (ED) Vital Signs Vital Signs - 24 hr 06/08/24 16:04 06/08/24 17:13 06/08/24 17:29 Temperature 36.7 C Temperature Source Temporal Artery Scan Pulse Rate 88 93 H Pulse Rate [Apical] Pulse Rhythm Regular Pulse Strength Normal Respiratory Rate 20 Respiratory Effort / Characteristics Non-Labored Spontaneous Respiratory Depth Normal Blood Pressure 95/47 L Blood Pressure [Left Arm] Blood Pressure Mean 63 Blood Pressure Mean [Left Arm] Blood Pressure Position Sitting Blood Pressure Position [Left Arm] Pulse Oximetry 96 91 Oxygen Delivery Method Room Air Room Air Sepsis Recent Fever Within 48 Hours No Sepsis New/Unexplained Change in Mental Status N/A Sepsis Action Taken by Nursing No Action Required 06/08/24 17:29 06/08/24 17:29 06/08/24 18:15 Temperature 36.4 C L Temperature Source Oral Pulse Rate 89 89 Pulse Rate [Apical] 89 Pulse Rhythm Pulse Strength Respiratory Rate 18 18 24 Respiratory Effort / Characteristics Non-Labored Spontaneous Respiratory Depth Blood Pressure 94/57 L Blood Pressure [Left Arm] 97/56 L Blood Pressure Mean 69 Blood Pressure Mean [Left Arm] 69 Blood Pressure Position Blood Pressure Position [Left Arm] Lying Pulse Oximetry 91 91 94 Oxygen Delivery Method Room Air Sepsis Recent Fever Within 48 Hours Sepsis New/Unexplained Change in Mental Status Sepsis Action Taken by Nursing 06/08/24 18:30 Temperature 36.7 C Temperature Source Oral Pulse Rate 89 Pulse Rate [Apical] Pulse Rhythm Pulse Strength Respiratory Rate 23 Respiratory Effort / Characteristics Respiratory Depth Blood Pressure 114/66 Blood Pressure [Left Arm] Blood Pressure Mean 82 Blood Pressure Mean [Left Arm] Blood Pressure Position Blood Pressure Position [Left Arm] Pulse Oximetry 90 Oxygen Delivery Method Sepsis Recent Fever Within 48 Hours Sepsis New/Unexplained Change in Mental Status Sepsis Action Taken by Nursing Laboratory Data 06/08/24 16:31 06/08/24 16:31 Lab Results 06/08/24 06/08/24 06/08/24 Range/Units 16:31 17:11 17:40 WBC 12.57 H (4.8-10.8) K/ul RBC 1.74 L (4.70-6.10) M/uL Hgb 5.9 L* (14.0-18.0) g/dl Hct 18.3 L* (42.0-52.0) % MCV 105.2 H (80.0-100.0) fL MCH 33.9 (25.0-34.0) pg MCHC 32.2 (32.0-36.0) g/dL RDW Std Deviation 60.9 H (36.4-46.3) fL RDW Coeff of Grace 16.2 H (11.5-14.5) % Plt Count 277 (130-400) K/uL MPV 9.9 (9.4-12.4) fL Immature Gran % (Auto) 1.4 % Neut % (Auto) 77.3 % Lymph % (Auto) 10.5 % [place] % (Auto) 8.8 % Eos % (Auto) 1.5 % Baso % (Auto) 0.5 % Neut # (Auto) 9.71 H (1.40-6.50) K/uL Lymph # (Auto) 1.32 (1.20-3.40) K/uL [place] # (Auto) 1.11 H (0.11-0.59) K/uL Eos # (Auto) 0.19 (0.00-0.50) K/uL Baso # (Auto) 0.06 (0.00-0.20) K/uL Immature Gran # (Auto) 0.18 (0.01-0.20) K/uL Absolute Nucleated RBC 0.02 (0.00-0.12) K/uL Nucleated RBC % (auto) 0.2 % Polychromasia 1+ PT 37.5 H (9.0-12.0) Seconds INR 3.9 H (0.9-1.1) Sodium 135 L (136-145) mmol/L Potassium 3.2 L (3.5-5.1) mmol/L Chloride 99 (98-107) mmol/L Carbon Dioxide 29 (21-32) mmol/L Anion Gap 7 (3-11) BUN 35 H (6-23) mg/dl Creatinine 3.14 H (0.6-1.4) mg/dl Est Cr Clr Drug Dosing Not Reportable eGFR 19.39 BUN/Creatinine Ratio 11.1 (10-20) Glucose 130 H (70-99(Fasting)) mg/dl POC Glucose 154 H (70-99) mg/dl Calcium 9.4 (8.6-10.3) mg/dl Magnesium 1.8 (1.7-2.4) mg/dl Total Bilirubin 0.3 (0.2-1.0) mg/dl AST 13 (13-39) U/L ALT 9 (7-52) U/L Alkaline Phosphatase 75 (34-104) U/L Troponin I High Sens 30.8 H (0-20) pg/ml Total Protein 6.2 (6.0-8.3) gm/dl Albumin 3.5 (3.4-5.0) gm/dl Globulin 2.7 (2.5-4.0) gm/dl Albumin/Globulin Ratio 1.3 (0.9-2) Blood Type A Positive Antibody Screen NEGATIVE Crossmatch See Detail Imaging Data Radiologist's Impression: Chest X-Ray 06/08/24 16:08 EXAM: X-ray chest 1 view not portable CLINICAL HISTORY: Weakness, hypotensive PRIORS: 05/06/2024 TECHNIQUE: Portable upright AP FINDINGS: Lung volumes are mildly diminished. Mild interstitial changes noted with no pleural effusion. Mild opacification at the right cardiophrenic angle, appearing in the interval. Moderate atherosclerotic disease of the aortic knob noted. Heart size is normal. No pneumothorax. Trachea is patent. Osseous structures demonstrate no acute abnormality. No radiopaque foreign body. IMPRESSION: 1. Radiographic features favoring mild volume overload. 2. Mild opacification of the right cardiophrenic angle, appearing in the interval, possibly representing pneumonia or atelectasis in the proper clinical setting. Please correlate if there is clinical concern for pneumonia. Electronically signed by Barby Rodriguez 06-08-2024 5:19 PM Discharge Plan Visit Data Chief Complaint: Weakness Stated Complaint: DIZZY, WEAK, CAME FROM DIALYSIS ED Provider: Gumaro Arreola Discharge Problem: Anemia, GI bleed, ESRD on dialysis Forms Stand Alone Forms: My [facility] Prescriptions Prescriptions: No Action atorvastatin 80 mg tablet 80 mg PO HS finasteride 5 mg tablet 5 mg PO HS [id number] 1 mg Tablet 1 tab PO HS aspirin 81 mg Tablet,Chewable 81 mg PO HS torsemide 20 mg tablet 20 mg PO [id number] Rx Instructions: THU- THU- UR-SAT triamcinolone acetonide 0.1 % cream 0.1 applic TOPICAL BID fluocinonide 0.05 % solution 0.05 applic TOPICAL DAILY calcium acetate(phosphat bind) 667 mg Capsule 667 mg PO TID warfarin 5 mg tablet See Rx Instructions .ROUTE .COMPLEX Rx Instructions: 5 mg Sundays. V-L-TFR-SAT 7.5 mg Referrals Referrals: Mike Maki MD [Primary Care Provider] -
--- NOTE | 2024-06-08 19:11 | History & Physical Report ---
Date of Service June 08, 2024 Assessment & Plan (1) Symptomatic anemia: (2) Rectal bleeding: Plan: Patient is 78 year old male with PMH CAD s/p stent, s/p bioprosthetic aortic valve replacement, anticoagulated on warfarin, ESRD on HD, hypertension, hyperl ipidemia, bladder cancer presented to ER with c/o progressive weakness. Had HD today with increased weakness In ER pt afebrile, P: 89, BP: 97/56, R: 18, 91% on RA up to 100% on 2L via NC No overt rectal bleeding in ER. +Hemoccult positive stool H/H: 5.9/18 (Hgb: 10 in 04/2024). INR: 3.9 WBC: 12.5 DDx: hemorrhoid, diverticular bleed Type and crossed in ER and 2 units PRBCs ordered. Currently SBPs in high 90's. Will plan for lasix in between 1st and 2nd units PRBCs Repeat H&H after PRBC transfusion Hold warfarin, aspirin Obtain CT abd/pelvis GI consult CBC, BMP in am Wheezing noted on exam Denies cough, fever/chills, congestion WBC: 12.5 CXR: Radiographic features favoring mild volume overload. Mild opacification of the right cardiophrenic angle, appearing in the interval, possibly representing pneumonia or atelectasis in the proper clinical setting Obtain procalcitonin, biofire respiratory panel Supplemental oxygen as needed Empirically treat with aztreonam, flagyl (3) ESRD on dialysis: Plan: On MWF schedule Had HD today but finished session early secondary to weakness Nephrology consult for assistance with HD (4) Aortic valve replaced: Plan: History Aortic Stenosis. S/P TAVR in 2019 Anticoagulated on warfarin INR: 3.9 with acute anemia Cardiology consult for assistance with anticoagulation recommendations #Elevated troponin: Troponin: 30 -->28 Chronically elevated troponin, h/o ESRD. Denies CP #CAD S/P stent 2020 Hold aspirin for now Continue atorvastatin #Hypokalemia K: 3.2 Give KCl 40meq po now Monitor DVT Prophylaxis SCDs Admit PCU Full Code as per discussion with pt, however reports would not want prolonged intubation if poor prognosis Follows with Dr Maki for routine care Pt was seen and care coordinated with Dr Diego. See addendum I spent a total of 78 minutes reviewing notes, outpatient records, labs, medication, coordinating, documenting and providing care for this patient excluding time spent in the performance of separately billed services. History of Present Illness Chief Complaint: weakness Primary Care Provider: Mike Maki MD Patient is 78 year old male with PMH CAD s/p stent, s/p bioprosthetic aortic valve replacement, anticoagulated on warfarin, ESRD on HD, hypertension, hyperlipidemia, bladder cancer presented to ER with c/o weakness. Patient states has been having a lot of fatigue and generalized weakness with dialysis sessions recently. Also reports recently having dry heaves without vomiting in the evenings after dialysis. The other days he doesn't have dry heaves. Reports some SOB with exertion. Today had dialysis and almost finished session but was stopped secondary to patient feeling very weak and lightheaded. Patient states during dialysis supplemental oxygen was applied. He doesn't use oxygen at home. He denies any cough, CP, rhinorrhea. Makes small amount of urine. Denies hematuria, dysuria. States constipated for 5 days and yesterday had BM and states noticed very small amount of red blood. Denies further rectal bleeding. Denies melena or hematochezia, fever/chills, diaphoresis, N/V/D/C, [place], dizziness, syncope, vision changes, neck pain, CP, SOB, orthopnea, palpitations, cough, sore throat, choking, otalgia, rhinorrhea, abdominal pain, paresthesias, weakness, extremity weakness, extremity edema, rashes, urinary symptoms. History colonoscopy 11/2022: extremely large hemorrhoids, diverticulosis entire colon History EGD 01/2020: small hiatal hernia, single gastric polyp, scar in gastric antrum Allergies Allergy/AdvReac Type Severity Reaction Status Date / Time cephalexin Allergy Severe Tongue and Verified 06/08/24 20:11 face swelling tamsulosin Allergy Severe angioedema Verified 06/08/24 20:11 Home Medications Medication Instructions Recorded Confirmed Type atorvastatin 80 mg tablet 80 mg PO HS 07/01/22 06/08/24 History finasteride 5 mg tablet 5 mg PO HS 07/01/22 06/08/24 History aspirin 81 mg chewable tablet 81 mg PO HS 07/04/22 06/08/24 History torsemide 20 mg tablet 20 mg PO 4XWK 12/17/23 06/08/24 History warfarin 5 mg tablet See Rx Instructions .Route .COMPLEX 12/17/23 06/08/24 Hist ory vitamins no.144-folic 2 tab PO DAILY 06/08/24 06/08/24 History acid 400 mcg chewable tablet () sevelamer carbonate 800 mg tablet 800 mg PO TID 06/08/24 06/08/24 History Past Med/Surg History Problem List Rectal bleeding Symptomatic anemia ESRD on dialysis (Acute) GI bleed (Acute) Anemia (Acute) End-stage renal disease on hemodialysis Acidosis Hypoxia (Acute) Respiratory acidosis Metabolic encephalopathy Anticoagulated on Coumadin Multifocal pneumonia Acute respiratory failure with hypoxia and hypercapnia Diverticulitis of ascending colon UTI (urinary tract infection) Urinary tract infection due to Pseudomonas aeruginosa (Acute) CKD (chronic kidney disease) stage 5, GFR less than 15 ml/min (Acute) Colon polyps Encounter for pre-operative examination BPH (benign prostatic hyperplasia) Hypertension 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 " On 04/03/11 18:15 Norma Vargas wrote "with outflow obstruction " On 04/03/11 18:15 Norma Vargas wrote "with outflow obstruction " On 04/03/11 18:15 Norma Vargas wrote "with outflow obstruction " Absent renal function (04/03/11) Medical History Anemia Gastric nodule Type 2 diabetes mellitus NIDDM Bifascicular block ongoing since 2010 Umbilical hernia chronic per patient-denies change or worsening History of blood transfusion pre-op aortic valve replacement CAD (coronary artery disease) s/p 1 stent in 2019 HTN (hypertension) controlled, stable per pt History of diverticulitis entered into EMR 09/2022-patient states last flare was 1 year ago History of colon polyps BPH (benign prostatic hyperplasia) CKD (chronic kidney disease), stage V Arthritis Hx of bladder cancer surgery only Hyperlipidemia Surgical History History of cataract surgery left and right H/O cystoscopy History of tooth extraction [facility] by Dr. Wei) History of heart artery stent 1 stent placed 2019 History of orchiectomy, unilateral History of arthroscopy of left knee History of colonoscopy Family History Mother Family history of diabetes mellitus Father Family hx of colon cancer Other No family history of adverse response to anesthesia Social History Smoking Status: Never smoker Tobacco Type: Cigarettes Second Hand Exposure: No; Do You Dip or Chew Tobacco: No; Hx Alcohol Use: No Hx Substance Use: No Preferred Language: Mohawk Communication Ability: Effective Retention Manager Required: No Beliefs That Will Affect Care: None Current Living Situation: Spouse Feels Safe at Home: Yes Assistive Devices: Cane and Hearing Aid - Bilateral Review of Systems Review of Systems: All systems reviewed & are unremarkable except as noted in HPI & below Physical Exam Physical Exam: General: no distress, overweight elderly male Head: normocephalic, atraumatic Eyes: conjunctiva non-injected, anicteric ENT: normal inspection external ears, nose, mucous membranes moist Neck: supple, trachea midline Lungs: no respiratory distress on 2L O2 via NC with O2 sat 100%, diminished breath sounds bilateral bases, slight scattered wheezing CV: RRR, no murmur, trace pretibial edema Abd: normal BS, soft, non-tender Ext: no cyanosis, no calf tenderness Neuro: A&O x 3, no focal deficits noted, normal affect Skin: warm, dry Results & Data Results & Data Vital Signs (Past 12 Hours) Vital Signs Temp Pulse Pulse Resp BP BP Pulse Ox 06/08/24 19:03 87 18 106/44 L 100 06/08/24 18:45 36.5 C 87 116/60 100 06/08/24 18:30 36.7 C 89 23 114/66 90 06/08/24 18:15 36.4 C L 89 24 94/57 L 94 06/08/24 17:29 89 18 91 06/08/24 17:29 89 18 97/56 L 91 06/08/24 17:29 91 06/08/24 17:13 93 H 06/08/24 16:04 36.7 C 88 20 95/47 L 96 O2 Del Method O2 Flow Rate 06/08/24 19:03 Nasal Cannula 2 06/08/24 18:45 2 06/08/24 18:30 06/08/24 18:15 06/08/24 17:29 Room Air 06/08/24 17:29 06/08/24 17:29 Room Air 06/08/24 17:13 06/08/24 16:04 Room Air Laboratory Results Short CBC 06/08/24 Range/Units 16:31 WBC 12.57 H (4.8-10.8) K/ul Hgb 5.9 L* (14.0-18.0) g/dl Hct 18.3 L* (42.0-52.0) % Plt Count 277 (130-400) K/uL BMP 06/08/24 16:31 Sodium 135 L Potassium 3.2 L Chloride 99 Carbon Dioxide 29 BUN 35 H Creatinine 3.14 H Glucose 130 H Calcium 9.4 Liver Function 06/08/24 Range/Units 16:31 Total Bilirubin 0.3 (0.2-1.0) mg/dl AST 13 (13-39) U/L ALT 9 (7-52) U/L Alkaline Phosphatase 75 (34-104) U/L Albumin 3.5 (3.4-5.0) gm/dl Diagnostic Findings Chest X-Ray 06/08/24 16:08 EXAM: X-ray chest 1 view not portable CLINICAL HISTORY: Weakness, hypotensive PRIORS: 05/06/2024 TECHNIQUE: Portable upright AP FINDINGS: Lung volumes are mildly diminished. Mild interstitial changes noted with no pleural effusion. Mild opacification at the right cardiophrenic angle, appearing in the interval. Moderate atherosclerotic disease of the aortic knob noted. Heart size is normal. No pneumothorax. Trachea is patent. Osseous structures demonstrate no acute abnormality. No radiopaque foreign body. IMPRESSION: 1. Radiographic features favoring mild volume overload. 2. Mild opacification of the right cardiophrenic angle, appearing in the interval, possibly representing pneumonia or atelectasis in the proper clinical setting. Please correlate if there is clinical concern for pneumonia. Electronically signed by Barby Rodriguez 06-08-2024 5:19 PM ECG Additional Comments: sinus rhythm, bifascicular block per my interpretation Code Status & VTE Plan VTE Prophylaxis Plan VTE Prophylaxis will be ordered: Yes Supervising Physician Co-Signing Physician Notes I have seen and discussed the case with the collaborating advanced practitioner. I agree with the above H&P. I have reviewed and confirmed the patients medical history, the findings on physical examination, and the patients diagnosis and treatment plan with Janell TRONCOSO and agree with the information documented. In short, Mr. Agudelo is a 78 yo gentleman presenting for progressive SOB and found to be profoundly anemic with hgb of 5. He states he experienced some BRBPR yesterday, but denies any diarrhea/melena/abdominal pain. Reports feeling more fatigue and unable to t olerate dialysis as well as he usually does. Denies subjective fevers, cough, chills or other symptoms exam fairly unremarkable, diminshed breath sounds, otherwise no distress and covernsational #acute on chronic anemia, c/f gib suspect slow occult loss given 5 g drop noted CLD for now with NPO midnight PPI BID iron studies add on for optimization if epo needed with HD s/p 2 UPRBCS with IV lasix in between trend HH #prolonged qtc avoid prolongating agents #ESRD nephrology consult #Leukocytosis #Acute hypoxic resp failure borderline procal, patchy densities on CT noted no signs of diverticulitis unclear hx of allergy to cephalosporins/penicillin unclear aztreonam for gram neg and flagyl for anaerobic coverage in interim potentially reactive iso bleeding #aortic stenosis s/p TAVR c/b ?HALT #chronic anticoag INR 2-3 goal holding coumadin iso supratherapeutic inr but also GIB rest of plan as above I spent a total of 20 minutes coordinating, documenting, and providing care for this patient excluding time spent in the performance of separately billed services. All of the aforementioned completed outside of collaborating with the assigned advanced practitioner for a full treatment plan. I have reviewed the advanced practitioner's documentation, and I agree with, and take responsibility for the plan of care
[2024-06-08 19:36] LABS: Troponin I High Sensitivity 28.9 pg/ml (0-20)
[2024-06-08] MEDS: FUROSEMIDE 40 MG/4 ML VIAL IV ONE (20:04)
[2024-06-08] MEDS: POTASSIUM CHLORIDE CRTAB 20 MEQ TABCR PO STA (20:09)
[2024-06-08] MEDS: metroNIDAZOLE 500 MG/100 ML BAG IV STA (20:22)
[2024-06-08 21:26] LABS: Adenovirus PCR Not Detected (NotDetected); Bordetella parapertussis PCR Not Detected (NotDetected); Bordetella pertussis PCR Not Detected (NotDetected); Chlamydia pneumoniae PCR Not Detected (NotDetected); Coronavirus 229E PCR Not Detected (NotDetected); Coronavirus CoV-2 (COVID19)PCR Not Detected (NotDetected); Coronavirus HKU1 PCR Not Detected (NotDetected); Coronavirus NL63 PCR Not Detected (NotDetected); Coronavirus OC43PCR Not Detected (NotDetected); Human Metapneumovirus PCR Not Detected (NotDetected); Influenza A PCR Not Detected (NotDetected); Influenza B PCR Not Detected (NotDetected); Mycoplasma pneumoniae PCR Not Detected (NotDetected); Parainfluenza Virus 1 PCR Not Detected (NotDetected); Parainfluenza Virus 2 PCR Not Detected (NotDetected); Parainfluenza Virus 3 PCR Not Detected (NotDetected); Parainfluenza Virus 4 PCR Not Detected (NotDetected); Respiratory Syncytial VirusPCR Not Detected (NotDetected); Rhinovirus/Enterovirus PCR Not Detected (NotDetected)
[2024-06-08] MEDS: AZTREONAM 2,000 MG in DEXTROSE 5% MINI-B 100 ML IV ONE (21:32)
[2024-06-08] MEDS ORDERED: ONDANSETRON INJ 2 MG/ML 2 ML VIAL IV PRN (21:40)
[2024-06-08] MEDS ORDERED: ACETAMINOPHEN 325 MG TAB PO PRN (21:40)
--- NOTE | 2024-06-08 22:00 | CT Scan Report ---
Exam(s): CT ABDOMEN + PELVIS Without Contrast EXAM: CT Abdomen and Pelvis Without Intravenous Contrast CLINICAL HISTORY: Reason for exam: history rectal bleeding. TECHNIQUE: Axial computed tomography images of the abdomen and pelvis without intravenous contrast. CTDI is 27.84 mGy and DLP is 1553.36 mGy-cm. Automated exposure control was utilized for the study. A dose lowering technique was utilized adhering to the principles of ALARA. COMPARISON: CT abdomen/pelvis on 09/28/2022 FINDINGS: Lung bases: Patchy densities in the lower lungs, concerning for infectious/inflammatory process. No consolidation. ABDOMEN: Liver: Unremarkable. Gallbladder and bile ducts: Unremarkable. No calcified stones. No ductal dilation. Pancreas: Unremarkable. No ductal dilation. Spleen: Unremarkable. No splenomegaly. Adrenals: Unremarkable. No mass. Kidneys and ureters: Mild calcifications associated with the cysts versus nonobstructing renal stones. No hydronephrosis or ureteral stone. Polycystic kidneys. Stomach and bowel: Moderate stool in the rectum could represent fecal impaction. Evaluation of the stomach is limited by underdistention. Diverticulosis without evidence of diverticulitis. PELVIS: Appendix: Normal appendix. Bladder: Small posterior superior bladder diverticulum. Mild prominence of the bladder wall is nonspecific. Please correlate with urinalysis if concerned for cystitis. No stones. Reproductive: Unremarkable as visualized. ABDOMEN and PELVIS: Intraperitoneal space: Unremarkable. No free air. No significant fluid collection. Bones/joints: Degenerative changes of the spine. Increased density of the bones may represent renal osteodystrophy changes. No acute fracture. No dislocation. Soft tissues: Bilateral gynecomastia. Moderate fat-containing umbilical hernia. Small fat-containing left inguinal hernia. Vasculature: Atherosclerotic changes of the vasculature. No abdominal aortic aneurysm. Phleboliths in the pelvis. Lymph nodes: Unremarkable. No enlarged lymph nodes. Tubes, lines and devices: Coronary artery and mitral annular calcifications. TAVR. IMPRESSION: 1. Patchy densities in the lower lungs, concerning for infectious/inflammatory process. 2. Small posterior superior bladder diverticulum. Mild prominence of the bladder wall is nonspecific. Please correlate with urinalysis if concerned for cystitis. 3. Moderate stool in the rectum could represent fecal impaction. Electronically signed by: Alejo Schulte M.D. 06/08/24 21:59 PM
--- NOTE | 2024-06-08 22:52 | Communication Note ---
Date of Service: June 08, 2024 Received query from pharmacist regarding adequacy of Azactam and Flagyl ordered on admission for possible pneumonia on imaging. Doxycycline added for atypical coverage given absence of cough symptoms as per admission H&P. Patient later on questioned need for multiple antibiotics upon arrival at the floor as per RN. Patient agreeable to doxycycline Rx for now after discussion of rationale at bedside.
[2024-06-08 23:54] LABS: Ferritin 305.9 ng/ml (8-388)
[2024-06-08] MEDS: ATORVASTATIN 40 MG TAB PO SCH (23:59)
[2024-06-09] MEDS: PANTOprazole 40 MG/10 ML SYR IV SCH (00:04)
[2024-06-09 00:07] LABS: Folate (Folic Acid),Ser orPlas 17.58 ng/ml (>5.38)
[2024-06-09] MEDS: DOXYCYCLINE HYCLATE 100 MG in DEXTROSE 5% MINI-B 100 ML IV STA (00:44)
[2024-06-09 03:10] LABS: BUN Creatinine Ratio 10.8 (10-20); Calcium 9.5 mg/dl (8.6-10.3); Magnesium 1.8 mg/dl (1.7-2.4); Potassium 3.8 mmol/L (3.5-5.1)
[2024-06-09 03:13] LABS: Appearance Urine Cloudy (Clear); Bacteria Urine Automated 3+ (None Seen); Bilirubin Urine Negative (Negative); Blood Urine 1+ (Negative); Cast Urine Automated >20 /lpf (0-2); Color Urine Yellow; Epithelial Cell Urine Auto 0-2 /hpf (0-2); Glucose Urine UA Negative (Negative); Ketones Urine Negative (Negative); Leukocyte Esterase Urine 3+ (Negative); Nitrite Urine Negative (Negative); Protein Urine 2+ (Negative); RBC Urine Automated 0-2 /hpf (0-2); Specific Gravity Urine 1.012 (1.000-1.030); Urobilinogen Urine Negative (Negative); WBC Urine Automated >50 /hpf (0-5)
[2024-06-09 03:18] LABS: INR 3.9 (0.9-1.1); Prothrombin Time 37.7 Seconds (9.0-12.0)
[2024-06-09 03:27] LABS: Hematocrit (blood only) 23.7 % (42.0-52.0); Hemoglobin 7.6 g/dl (14.0-18.0); Mean Corpuscular Hemoglobin 31.8 pg (25.0-34.0); Mean Corpuscular Hgb Conc 32.1 g/dL (32.0-36.0); Mean Corpuscular Volume 99.2 fL (80.0-100.0); Mean Platelet Volume 9.6 fL (9.4-12.4); Nucleated RBC # (auto) 0.04 K/uL (0.00-0.12); Nucleated RBC % (auto) 0.3 %; Platelet Count 240 K/uL (130-400); RDW Coefficient of Variation 19.7 % (11.5-14.5); RDW Standard Deviation 69.7 fL (36.4-46.3); Red Blood Count 2.39 M/uL (4.70-6.10); White Blood Count 11.97 K/ul (4.8-10.8)
[2024-06-09 03:28] LABS: Basophils # (auto) 0.08 K/uL (0.00-0.20); Basophils % (auto) 0.7 %; Eosinophils # (auto) 0.22 K/uL (0.00-0.50); Eosinophils % (auto) 1.8 %; Immature Granulocytes # (auto) 0.19 K/uL (0.01-0.20); Immature Granulocytes % (auto) 1.6 %; Lymphocytes # (auto) 1.19 K/uL (1.20-3.40); Lymphocytes % (auto) 9.9 %; Monocytes # (auto) 1.55 K/uL (0.11-0.59); Monocytes % (auto) 12.9 %; Neutrophils # (auto) 8.74 K/uL (1.40-6.50); Neutrophils % (auto) 73.1 %; Polychromasia 1+
[2024-06-09] MEDS ORDERED: metroNIDAZOLE 500 MG/100 ML BAG IV SCH (04:00)
[2024-06-09] MEDS ORDERED: AZTREONAM 2,000 MG in DEXTROSE 5% MINI-B 100 ML IV SCH (08:00)
--- NOTE | 2024-06-09 08:53 | Cardiology Consultation ---
Date of Consultation June 09, 2024 Assessment & Plan (1) Symptomatic anemia: (2) GI bleed: (3) History of transcatheter aortic valve replacement (TAVR): (4) CAD (coronary artery disease): Plan Patient is a 78 year old male admitted to [facility] for symptomatic anemia. On anticoagulation with Coumadin since October 2023 due to concerns for HALT in regards to his TAVR. Unfortunately despite Coumadin treatment over 6 months, the velocities remained unchanged on his most recent echo in Apr 2024. It was felt hi higher velocities may also be due to his hyperdynamic function. low dose beta matthew was considered but due to low BP and issues with dizziness/fatigue with HD, beta matthew was not started. Now patient presenting with concerns for GI bleed. Hbg 5.9 on arrival. Received 2 units of PRBC and Hbg 7.6 this morning Acceptable to hold coumadin. INR 3.9 yesterday and today. Would not reverse with Vit K at this time as no recurrent bleeding noted by patient. Monitor H&H daily INR Patient is hesitant to proceed with endoscopies. I encouraged him to have these done as it is difficult to resume anticoagulation without knowing definitive cause of his anemia. Acceptable to hold ASA for now. He does have a history of CAD s/p stent to the LCx in 2019. Will need to resume ASA when acute bleeding improves. Continue statin. Nephrology following for HD. Given IV lasix today for concerns regarding mild pleural effusions and incomplete dialysis session yesterday. Case discussed with Dr. Warren I spent a total of 60 minutes on the date of service in preparation, delivery, and documentation of the care provided to this patient, excluding any time spent in the performance of separately billed services. Brittney Patino PA-C Department of Cardiology, [facility] This chart was completed in part utilizing Speech Voice Recognition Software. Grammatical errors, random word insertions, pronoun errors, and incomplete sentences are an occasional consequence of this system due to software limitations, ambient noise, and hardware issues. Any formal questions or concerns about the content, text, or information contained within the body of this dictation should be directly addressed to the provider for clarification. Supervising Physician Co-Signing Physician Notes Patient was seen and personally examined. Full assessment and plan as outlined by advanced provider as above. Care and management discussed and personally endorsed. 78-year-old male presents with weakness fatigue and profound anemia. Previously on anticoagulation as noted due to elevated left ventricular outflow tract velocities post TAVR. Recommendations as noted discontinue warfarin. Resume aspirin when available. No overt findings of bleeding by patient description despite significant decline in hemoglobin I spent a total of 20 minutes on the date of service in preparation, delivery, and documentation of the care provided to this patient, excluding any time spent in the performance of separately billed services. History of Present Illness Reason for Consultation: GI bleed Requesting Physician: Leni Michael History of Present Illness Patient is a 78 year old male who presented to [facility] yesterday after dialysis with progresive fatigue, weakness, and lightheadedness. He was found to be severely anemic with hbg of 5.9. INR was 3.9. Coumadin placed on hold. Treated with 2 units PRBC's. Hbg improved to 7.6 this morning He reported one large dark BM several days ago but denies "blood". No abdominal pain. Cardiology consulted due to assist with anticoagulation recommendations. Patient is uncertain if he wishes to proceed with endoscopies At time of consult, patient resting in bed, feeling ok. Notes ongoing fatigue and feeling "weak". Denies chest pain or SOB. No orthopnea, PND or increased edema. Still makes small amount of urine. History includes: 1. History of severe aortic stenosis, status post TAVR, 2019. Elevated velocities noted in October 2023 concerning for obstruction, concern for HALT. Started on coumadin. Velocities failed to improve on repeat echo in December 2023 and April 2024 were slightly higher. Possibly higher velocities due to hyperdynamic LVEF. 2. Hx of intermittent LBBB post procedure- no indication for ppm implant at that time. 3. History of CAD, status post stent to the left circumflex, 10/2019 4. ESRD , on HD since January 5. Hypertension 6. Hyperlipidemia 7. Mitral stenosis (mild) 8. Bladder cancer- dx Allergies Allergy/AdvReac Type Severity Reaction Status Date / Time cephalexin Allergy Severe Tongue and Verified 06/08/24 20:11 face swelling tamsulosin Allergy Severe angioedema Verified 06/08/24 20:11 Home Medications Medication Instructions Recorded Confirmed Type atorvastatin 80 mg tablet 80 mg PO HS 07/01/22 06/08/24 History finasteride 5 mg tablet 5 mg PO HS 07/01/22 06/08/24 History aspirin 81 mg chewable tablet 81 mg PO HS 07/04/22 06/08/24 History torsemide 20 mg tablet 20 mg PO [id number] 12/17/23 06/08/24 History warfarin 5 mg tablet See Rx Instructions .Route .COMPLEX 12/17/23 06/08/24 History vitamins no.144-folic 2 tab PO DAILY 06/08/24 06/08/24 History acid 400 mcg chewable tablet () sevelamer carbonate 800 mg tablet 800 mg PO TID 06/08/24 06/08/24 History Patient History Medical History Anemia Gastric nodule Type 2 diabetes mellitus NIDDM Bifascicular block ongoing since 2010 Umbilical hernia chronic per patient-denies change or worsening History of blood transfusion pre-op aortic valve replacement CAD (coronary artery disease) s/p 1 stent in 2018 HTN (hypertension) controlled, stable per pt History of diverticulitis entered into EMR 09/2022-patient states last flare was 1 year ago History of colon polyps BPH (benign prostatic hyperplasia) CKD (chronic kidney disease), stage V Arthritis Hx of bladder cancer surgery only Hyperlipidemia Surgical History History of cataract surgery left and right H/O cystoscopy History of tooth extraction Aortic valve replaced 2019 at [facility] (followed by Dr. 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 Beliefs That Will Affect Care: None Current Living Situation: Spouse Feels Safe at Home: Yes Assistive Devices: Cane Review of Systems Review of Systems: All systems reviewed & are unremarkable except as noted in HPI & below Physical Exam Constitutional: WD/WN, vitals as above no acute distress Neck: trachea midline, no thyromegaly Respiratory: no labored breathing Auscultation: + diminished lung sounds Cardiovascular: Rate/Rhythm: regular rate and regular rhythm Heart Sounds: + murmur (II/ systolic murmur LSB) Gastrointestinal (Abdomen): normal bowel sounds, soft, nontender, no hepatosplenomegaly Musculoskeletal: no cyanosis or clubbing, extremities motor strength 5/5 Neurologic: PERRL, EOMI, accommodation nl, no face palsy, no dysarthria Results & Data Vital Signs (Past 12 Hours) Vital Signs Temp Pulse Pulse Resp BP BP Pulse Ox 06/09/24 07:38 36.7 C 86 18 111/64 91 06/09/24 07:32 82 06/09/24 01:34 36.8 C 86 105/64 94 06/09/24 00:24 37.1 C 87 100/50 L 93 06/08/24 23:54 36.9 C 88 87/36 L 99 06/08/24 23:39 36.3 C L 87 109/69 99 06/08/24 23:17 36.4 C L 72 96/61 L 90 06/08/24 23:00 86 06/08/24 23:00 06/08/24 22:52 36.6 C 96 H 28 H 117/68 91 06/08/24 22:06 36.6 C 85 18 100/50 L 96 06/08/24 21:47 79 18 104/50 L 99 06/08/24 21:16 86 06/08/24 21:15 36.6 C 81 22 94/45 L 100 06/08/24 21:00 83 18 94/45 L 100 06/08/24 20:54 36.5 C 85 18 99/53 L 100 O2 Del Method O2 Flow Rate 06/09/24 07:38 Nasal Cannula 1 06/09/24 07:32 06/09/24 01:34 06/09/24 00:24 06/08/24 23:54 3 06/08/24 23:39 3 06/08/24 23:17 06/08/24 23:00 06/08/24 23:00 Room Air 06/08/24 22:52 Room Air 06/08/24 22:06 06/08/24 21:47 Nasal Cannula 2 06/08/24 21:16 06/08/24 21:15 06/08/24 21:00 Nasal Cannula 2 06/08/24 20:54 Laboratory Results Cardiac Enzymes 06/08/24 06/08/24 06/09/24 Range/Units 16:31 18:56 02:30 AST 13 (13-39) U/L Troponin I High Sens 30.8 H 28.9 H 30.1 H (0-20) pg/ml 06/09/24 Range/Units 08:28 AST (13-39) U/L Troponin I High Sens 28.7 H (0-20) pg/ml Coagulation 06/08/24 06/09/24 Range/Units 16:31 02:30 PT 37.5 H 37.7 H (9.0-12.0) Seconds CBC 06/08/24 06/09/24 Range/Units 16:31 02:30 WBC 12.57 H 11.97 H (4.8-10.8) K/ul RBC 1.74 L 2.39 L (4.70-6.10) M/uL Hgb 5.9 L* 7.6 L (14.0-18.0) g/dl Hct 18.3 L* 23.7 L (42.0-52.0) % Plt Count 277 240 (130-400) K/uL Neut # (Auto) 9.71 H 8.74 H (1.40-6.50) K/uL Lymph # (Auto) 1.32 1.19 L (1.20-3.40) K/uL Hartley # (Auto) 1.11 H 1.55 H (0.11-0.59) K/uL Eos # (Auto) 0.19 0.22 (0.00-0.50) K/uL Baso # (Auto) 0.06 0.08 (0.00-0.20) K/uL Comprehensive Metabolic Panel 06/08/24 06/09/24 Range/Units 16:31 02:30 Sodium 135 L 135 L (136-145) mmol/L Potassium 3.2 L 3.8 (3.5-5.1) mmol/L Chloride 99 101 (98-107) mmol/L Carbon Dioxide 29 27 (21-32) mmol/L BUN 35 H 45 H (6-23) mg/dl Creatinine 3.14 H 4.16 H D (0.6-1.4) mg/dl Glucose 130 H 160 H (70-99(Fasting)) mg/dl Calcium 9.4 9.5 (8.6-10.3) mg/dl AST 13 (13-39) U/L ALT 9 (7-52) U/L Alkaline Phosphatase 75 (34-104) U/L Total Protein 6.2 (6.0-8.3) gm/dl Albumin 3.5 (3.4-5.0) gm/dl Intake and Output 06/08/24 06/09/24 06/09/24 22:59 06:59 14:59 Intake Total 410 / 920 510 / 920 Output Total 400 / 400 Balance 410 / 520 110 / 520 Intake: IV 100 / 300 200 / 300 Aztreonam 2,000 mg In Dextrose 100 / 100 5% Mini-B 100 ml @ 100 mls/hr IV NOW ONE Rx#:[id number] Doxycycline Hyclate 100 mg In 100 / 100 Dextrose 5% Mini-B 100 ml @ 50 mls/hr IV NOW STA Rx#:[id number] metroNIDAZOLE 500 mg In 100 ml 100 / 100 @ 100 mls/hr IV NOW STA Rx#: [id number] Oral 0 / 0 Intake (Blood Product) Amt 310 / 620 310 / 620 Packed Cells, Leukoreduced 310 / 310 Unit [id number] Packed Cells, Leukoreduced 310 / 310 Unit [id number] Output: Urine 400 / 400 Other: Other Intake Source NPO Weight 101.3 kg 101.3 kg Weight Measurement Method Built in [facility] Built in [facility] Diagnostic Findings Telemetry reviewed: NSR with Occ PVC EKG reviewed: NSR with PVC's RBBB LAFB Chest X-Ray 06/08/24 16:08 IMPRESSION: 1. Radiographic features favoring mild volume overload. 2. Mild opacification of the right cardiophrenic angle, appearing in the interval, possibly representing pneumonia or atelectasis in the proper clinical setting. Please correlate if there is clinical concern for pneumonia. Electronically signed by Barby Rodriguez 06-08-2024 5:19 PM Abdomen/Pelvis CT 06/08/24 19:48 IMPRESSION: 1. Patchy densities in the lower lungs, concerning for infectious/inflammatory process. 2. Small posterior superior bladder diverticulum. Mild prominence of the bladder wall is nonspecific. Please correlate with urinalysis if concerned for cystitis. 3. Moderate stool in the rectum could represent fecal impaction. Electronically signed by: Alejo Schulte M.D. 06/08/24 21:59 PM Prior echo reviewed from Apr 2024: Interpretation Summary The qualitative LV ejection fraction is >70% (hyperdynamic). The LV wall thickness is moderately increased (concentric). The left atrium is mildly enlarged (35-41 ml/m^2). The patient is status post TAVR with Shad type prosthetic valve. The peak CW velocity is 4.49 m/sec with a mean gradient of 40.6 mmHg. DVI = 0.27 The CW peak velocity was 3.56 m/sec with mean gradient 27mmHg on previous study dated December 22, 2023. Elevated gradient at least partially secondary to hyperdynamic LV function on the current study with dimensionless index suggesting moderate to borderline severe obstruction. There is severe mitral annular calcification. Mild mitral stenosis is present. Medications Administered Current Inpatient Medications Acetaminophen (Acetaminophen 325 Mg Tab) 650 mg PO Q4H PRN PRN Reason: Pain or Fever Stop: 07/08/24 21:39 Atorvastatin Calcium (Atorvastatin 40 Mg Tab) 80 mg PO HS NATHANAEL Stop: 07/08/24 21:39 Last Admin: 06/08/24 23:59 Dose: 80 mg Docusate Sodium (Docusate Sodium 100 Mg Cap) 100 mg PO BID NATHANAEL Stop: 07/09/24 12:44 Doxycycline Hyclate (Doxycycline Hyclate 100 Mg Cap) 100 mg PO BIDM NATHANAEL Stop: 06/14/24 08:59 Last Admin: 06/09/24 09:05 Dose: 100 mg Finasteride (Finasteride 5 Mg Tab) 5 mg PO HS NATHANAEL Stop: 07/09/24 20:59 Pantoprazole Sodium (Protonix) 40 mg in 10 mls @ 5 mls/min IV BID NATHANAEL Stop: 07/08/24 22:44 Last Admin: 06/09/24 09:22 Dose: 5 mls/min Ondansetron HCl (Ondansetron Inj 2 Mg/Ml 2 Ml Vial) 4 mg IV Q6H PRN PRN Reason: Nausea Stop: 07/08/24 21:39 Polyethylene Glycol (Polyethylene (Miralax) 17 Gm Pack) 17 gm PO DAILY NATHANAEL Stop: 07/09/24 12:44
[2024-06-09] MEDS: DOXYCYCLINE HYCLATE 100 MG CAP PO SCH (09:05)
--- NOTE | 2024-06-09 09:57 | Gastrointestinal Consultation ---
Date of Consultation June 09, 2024 Assessment & Plan (1) Rectal bleedin78 year old male w/ history of CAD s/p stent, s/p bioprosthetic aortic valve replacement, anticoagulated on warfarin, ESRD on HD, hypertension, hyperlipidemia, bladder cancer presented to ER w/ weakness and report of rectal bleeding admitted w/ anemia w/ HGB 5.9 requiring 2units RBC. He is now reporting brown stools to me and denies black/bloody stools. Discussed role of EGD/Colonoscopy and he is unsure how he wants to proceed and is requesting conservative measures today. Trend H&H. Monitor and document GI output. Transfuse PRN. IV PPI BID. Hold ASA/Coumadin. Avoid constipation/straining given history of hemorrhoids. Will re-evaluate on afternoon rounds and assess if he is agreeable to endoscopic evaluation this admission. I spent a total of 60 minutes on the date of service in review of patient's record, and previously obtained information in person and appropriate medical visit, discussion and education of plan, with patient and/or caregiver, placing orders for tests/referral/procedures as medically necessary and documentation of pertinent clinical information in patient's medical records for their visit today. Supervising Physician Co-Signing Physician Notes Concerning for upper GI bleeding. Dark stools low hemoglobin difficulty with blood pressures on dialysis. Reviewed all this with the patient at the bedside. States he does not want procedures done that may not be necessary which of course is logical. TeleMed is possible we could identify a bleeding source such as an AVM or an ulcer with endoscopic intervention. I do not think a colon would be needed. If he had had significant bleeding from the colon to count the hemoglobin down to 5 he should have obvious hematochezia does note intermittent dark stools again consistent with probable upper GI or small bowel bleeding. This patient of course has risk factors for AVMs and bleeding with blood thinners age and renal issues. N.p.o. after midnight. Consider EGD tomorrow based on counts medical situation and patient's consent History of Present Illness Reason for Consultation: GI bleed. Requesting Physician: Michael Loving MD Attending Physician: Michael Loving MD History of Present Illness 78 year old male w/ history of CAD s/p stent, s/p bioprosthetic aortic valve replacement, anticoagulated on warfarin, ESRD on HD, hypertension, hyperlipidemia, bladder cancer presented to ER with c/o progressive weakness - GI was asked to evaluate for a GI bleed. Pt was seen and evaluated, chart reviewed. Notes from a GI standpoint he feels well. Denies abd pain. No nausea/vomiting. No reports of GERD or dysphagia. Suggests he has had constipation for about a week. moved his stools on 06/07 and this was darker in color but denies black or bloody stools. Most recent stool documented this admission is brown. Per documentation he reported blood in stool in ED but he is now denying this to me. Iron 35 Ferritin 305 HGB 10 --> 5.9 --> 7.6 INR 3.9 Heme positive stool Colonoscopy 2022: Preparation of the colon was fair. - Extremely large hemorrhoids found on perianal exam with stigmata of recent bleeding. - Diverticulosis in the entire examined colon. - Stool in the entire examined colon. - No specimens collected. EUS 2022: An intramural (subepithelial) lesion was found in the fundus of the stomach. The lesion appeared to originate from within the submucosa (Layer 3). - There was no sign of significant pathology in the ampulla. - There was no sign of significant pathology in the common bile duct. - There was no sign of significant pathology in the gallbladder. - There was no sign of significant pathology in the visualized pancreas. EGD 2019: - Normal esophagus. - Small hiatal hernia. - A single gastric polyp. Resected and retrieved. - Scar in the gastric antrum. Biopsied. - Normal duodenal bulb and second portion of the duodenum. - A single submucosal papule (nodule) found in the stomach. Banded. Biopsied. Allergies Allergy/AdvReac Type Severity Reaction Status Date / Time cephalexin Allergy Severe Tongue and Verified 06/08/24 20:11 face swelling tamsulosin Allergy Severe angioedema Verified 06/08/24 20:11 Home Medications Medication Instructions Recorded Confirmed Type atorvastatin 80 mg tablet 80 mg PO HS 07/01/22 06/08/24 History finasteride 5 mg tablet 5 mg PO HS 07/01/22 06/08/24 History aspirin 81 mg chewable tablet 81 mg PO HS 07/04/22 06/08/24 History torsemide 20 mg tablet 20 mg PO [id number] 12/17/23 06/08/24 History warfarin 5 mg tablet See Rx Instructions .Route .COMPLEX 12/17/23 06/08/24 History vitamins no.144-folic 2 tab PO DAILY 06/08/24 06/08/24 History acid 400 mcg chewable tablet () sevelamer carbonate 800 mg tablet 800 mg PO TID 06/08/24 06/08/24 History Patient History Medical History Anemia Gastric nodule Type 2 diabetes mellitus NIDDM Bifascicular block ongoing since 2010 Umbilical hernia chronic per patient-denies change or worsening History of blood transfusion pre-op aortic valve replacement CAD (coronary artery disease) s/p 1 stent in 2019 HTN (hypertension) controlled, stable per pt History of diverticulitis entered into EMR 09/2022-patient states last flare was 1 year ago History of colon polyps BPH (benign prostatic hyperplasia) CKD (chronic kidney disease), stage V Arthritis Hx of bladder cancer surgery only Hyperlipidemia Surgical History History of cataract surgery left and right H/O cystoscopy History of tooth extraction [facility] Dr. Wei) History of heart artery stent 1 stent placed 2018 History of orchiectomy, unilateral History of arthroscopy of left knee History of colonoscopy Family History Mother Family history of diabetes mellitus Father Family hx of colon cancer Other No family history of adverse response to anesthesia Social History Smoking Status: Former smoker Tobacco Type: Cigarettes Second Hand Exposure: No; Do You Dip or Chew Tobacco: No; Hx Alcohol Use: No Hx Substance Use: No Preferred Language: Greenlandic Communication Ability: Effective Mellowing Machine Operator Required: No Beliefs That Will Affect Care: None Current Living Situation: Spouse Feels Safe at Home: Yes Assistive Devices: Cane Review of Systems Review of Systems: All other findings negative except as noted in HPI. Physical Exam Constitutional: WD/WN, vitals as above Respiratory: normal respiratory effort Cardiovascular: Rate/Rhythm: regular rate and regular rhythm Gastrointestinal (Abdomen): normal bowel sounds, soft, nontender, no hepatosplenomegaly Skin: no rashes, warm and dry Results & Data Vital Signs (Past 12 Hours) Vital Signs Temp Pulse Pulse Resp BP BP Pulse Ox 06/09/24 07:38 98.1 F 86 18 111/64 91 06/09/24 07:32 82 06/09/24 01:34 98.2 F 86 105/64 94 06/09/24 00:24 98.8 F 87 100/50 L 93 06/08/24 23:54 98.4 F 88 87/36 L 99 06/08/24 23:39 97.3 F L 87 109/69 99 06/08/24 23:17 97.5 F L 72 96/61 L 90 06/08/24 23:00 86 06/08/24 23:00 06/08/24 22:52 97.9 F 96 H 28 H 117/68 91 06/08/24 22:06 97.9 F 85 18 100/50 L 96 O2 Del Method O2 Flow Rate 06/09/24 07:38 Nasal Cannula 1 06/09/24 07:32 06/09/24 01:34 06/09/24 00:24 06/08/24 23:54 3 06/08/24 23:39 3 06/08/24 23:17 06/08/24 23:00 06/08/24 23:00 Room Air 06/08/24 22:52 Room Air 06/08/24 22:06 Laboratory Results 06/09/24 06/09/24 06/09/24 Range/Units 08:28 02:30 02:00 WBC 11.97 H (4.8-10.8) K/ul RBC 2.39 L (4.70-6.10) M/uL Hgb 7.6 L (14.0-18.0) g/dl Hct 23.7 L (42.0-52.0) % MCV 99.2 D (80.0-100.0) fL MCH 31.8 (25.0-34.0) pg MCHC 32.1 (32.0-36.0) g/dL RDW Std Deviation 69.7 H (36.4-46.3) fL RDW Coeff of Grace 19.7 H (11.5-14.5) % Plt Count 240 (130-400) K/uL MPV 9.6 (9.4-12.4) fL Immature Gran % (Auto) 1.6 % Neut % (Auto) 73.1 % Lymph % (Auto) 9.9 % [place] % (Auto) 12.9 % Eos % (Auto) 1.8 % Baso % (Auto) 0.7 % Neut # (Auto) 8.74 H (1.40-6.50) K/uL Lymph # (Auto) 1.19 L (1.20-3.40) K/uL [place] # (Auto) 1.55 H (0.11-0.59) K/uL Eos # (Auto) 0.22 (0.00-0.50) K/uL Baso # (Auto) 0.08 (0.00-0.20) K/uL Immature Gran # (Auto) 0.19 (0.01-0.20) K/uL Absolute Nucleated RBC 0.04 (0.00-0.12) K/uL Nucleated RBC % (auto) 0.3 % Polychromasia 1+ PT 37.7 H (9.0-12.0) Seconds INR 3.9 H (0.9-1.1) Sodium 135 L (136-145) mmol/L Potassium 3.8 (3.5-5.1) mmol/L Chloride 101 (98-107) mmol/L Carbon Dioxide 27 (21-32) mmol/L Anion Gap 7 (3-11) BUN 45 H (6-23) mg/dl Creatinine 4.16 H D (0.6-1.4) mg/dl Est Cr Clr Drug Dosing 16.0 eGFR 13.84 BUN/Creatinine Ratio 10.8 (10-20) Glucose 160 H (70-99(Fasting)) mg/dl POC Glucose (70-99) mg/dl Calcium 9.5 (8.6-10.3) mg/dl Phosphorus 4.0 (2.5-4.9) mg/dl Magnesium 1.8 (1.7-2.4) mg/dl Iron (35-175) mcg/dl TIBC (250-450) mcg/dl Transferrin (200-360) mg/dl Transferrin % Sat (20-50) % Ferritin (8-388) ng/ml Total Bilirubin (0.2-1.0) mg/dl AST (13-39) U/L ALT (7-52) U/L Alkaline Phosphatase (34-104) U/L Troponin I High Sens 28.7 H 30.1 H (0-20) pg/ml Total Protein (6.0-8.3) gm/dl Albumin (3.4-5.0) gm/dl Globulin (2.5-4.0) gm/dl Albumin/Globulin Ratio (0.9-2) Vitamin B12 (180-914) pg/ml Folate (>5.38) ng/ml Procalcitonin (0-0.5) ng/ml Urine Color Yellow Urine Appearance Cloudy A (Clear) Urine pH 6.0 (4.5-7.5) Ur Specific [place] 1.012 (1.000-1.030) Urine Protein 2+ H (Negative) Urine Glucose (UA) Negative (Negative) Urine Ketones Negative (Negative) Urine Blood 1+ H (Negative) Urine Nitrite Negative (Negative) Urine Bilirubin Negative (Negative) Urine Urobilinogen Negative (Negative) Ur Leukocyte Esterase 3+ H (Negative) Urine WBC (Auto) >50 H (0-5) /hpf Urine RBC (Auto) 0-2 (0-2) /hpf U Hyaline Cast (Auto) >20 H (0-2) /lpf U Epithel Cells (Auto) 0-2 (0-2) /hpf Urine Bacteria (Auto) 3+ H (None Seen) Adenovirus (PCR) (NotDetected) B. pertussis DNA (PCR) (NotDetected) B.parapertussis DNA PCR (NotDetected) C. pneumoniae DNA (PCR) (NotDetected) Coronavirus OC43 (PCR) (NotDetected) Coronavirus HKU1 (PCR) (NotDetected) Coronavirus 229E (PCR) (NotDetected) SARS-CoV-2 (PCR) (NotDetected) Coronavirus NL63 (PCR) (NotDetected) Human Metapneumovir PCR (NotDetected) Influenza Type A (PCR) (NotDetected) Influenza Type B (PCR) (NotDetected) M. pneumoniae (PCR) (NotDetected) Parainfluenza 1 (PCR) (NotDetected) Parainfluenza 2 (PCR) (NotDetected) Parainfluenza 3 (PCR) (NotDetected) Parainfluenza 4 (PCR) (NotDetected) RSV (PCR) (NotDetected) Entero/Rhino (PCR) (NotDetected) Blood Type Antibody Screen Crossmatch 06/08/24 06/08/24 06/08/24 Range/Units 20:29 18:56 17:40 WBC (4.8-10.8) K/ul RBC (4.70-6.10) M/uL Hgb (14.0-18.0) g/dl Hct (42.0-52.0) % MCV (80.0-100.0) fL MCH (25.0-34.0) pg MCHC (32.0-36.0) g/dL RDW Std Deviation (36.4-46.3) fL RDW Coeff of Grace (11.5-14.5) % Plt Count (130-400) K/uL MPV (9.4-12.4) fL Immature Gran % (Auto) % Neut % (Auto) % Lymph % (Auto) % [place] % (Auto) % Eos % (Auto) % Baso % (Auto) % Neut # (Auto) (1.40-6.50) K/uL Lymph # (Auto) (1.20-3.40) K/uL [place] # (Auto) (0.11-0.59) K/uL Eos # (Auto) (0.00-0.50) K/uL Baso # (Auto) (0.00-0.20) K/uL Immature Gran # (Auto) (0.01-0.20) K/uL Absolute Nucleated RBC (0.00-0.12) K/uL Nucleated RBC % (auto) % Polychromasia PT (9.0-12.0) Seconds INR (0.9-1.1) Sodium (136-145) mmol/L Potassium (3.5-5.1) mmol/L Chloride (98-107) mmol/L Carbon Dioxide (21-32) mmol/L Anion Gap (3-11) BUN (6-23) mg/dl Creatinine (0.6-1.4) mg/dl Est Cr Clr Drug Dosing eGFR BUN/Creatinine Ratio (10-20) Glucose (70-99(Fasting)) mg/dl POC Glucose 154 H (70-99) mg/dl Calcium (8.6-10.3) mg/dl Phosphorus (2.5-4.9) mg/dl Magnesium (1.7-2.4) mg/dl Iron 35 (35-175) mcg/dl TIBC 211 L (250-450) mcg/dl Transferrin 151 L (200-360) mg/dl Transferrin % Sat 17 L (20-50) % Ferritin 305.9 (8-388) ng/ml Total Bilirubin (0.2-1.0) mg/dl AST (13-39) U/L ALT (7-52) U/L Alkaline Phosphatase (34-104) U/L Troponin I High Sens 28.9 H (0-20) pg/ml Total Protein (6.0-8.3) gm/dl Albumin (3.4-5.0) gm/dl Globulin (2.5-4.0) gm/dl Albumin/Globulin Ratio (0.9-2) Vitamin B12 (180-914) pg/ml Folate (>5.38) ng/ml Procalcitonin (0-0.5) ng/ml Urine Color Urine Appearance (Clear) Urine pH (4.5-7.5) Ur Specific [place] (1.000-1.030) Urine Protein (Negative) Urine Glucose (UA) (Negative) Urine Ketones (Negative) Urine Blood (Negative) Urine Nitrite (Negative) Urine Bilirubin (Negative) Urine Urobilinogen (Negative) Ur Leukocyte Esterase (Negative) Urine WBC (Auto) (0-5) /hpf Urine RBC (Auto) (0-2) /hpf U Hyaline Cast (Auto) (0-2) /lpf U Epithel Cells (Auto) (0-2) /hpf Urine Bacteria (Auto) (None Seen) Adenovirus (PCR) Not Detected (NotDetected) B. pertussis DNA (PCR) Not Detected (NotDetected) B.parapertussis DNA PCR Not Detected (NotDetected) C. pneumoniae DNA (PCR) Not Detected (NotDetected) Coronavirus OC43 (PCR) Not Detected (NotDetected) Coronavirus HKU1 (PCR) Not Detected (NotDetected) Coronavirus 229E (PCR) Not Detected (NotDetected) SARS-CoV-2 (PCR) Not Detected (NotDetected) Coronavirus NL63 (PCR) Not Detected (NotDetected) Human Metapneumovir PCR Not Detected (NotDetected) Influenza Type A (PCR) Not Detected (NotDetected) Influenza Type B (PCR) Not Detected (NotDetected) M. pneumoniae (PCR) Not Detected (NotDetected) Parainfluenza 1 (PCR) Not Detected (NotDetected) Parainfluenza 2 (PCR) Not Detected (NotDetected) Parainfluenza 3 (PCR) Not Detected (NotDetected) Parainfluenza 4 (PCR) Not Detected (NotDetected) RSV (PCR) Not Detected (NotDetected) Entero/Rhino (PCR) Not Detected (NotDetected) Blood Type Antibody Screen Crossmatch 06/08/24 06/08/24 Range/Units 17:11 16:31 WBC 12.57 H (4.8-10.8) K/ul RBC 1.74 L (4.70-6.10) M/uL Hgb 5.9 L* (14.0-18.0) g/dl Hct 18.3 L* (42.0-52.0) % MCV 105.2 H (80.0-100.0) fL MCH 33.9 (25.0-34.0) pg MCHC 32.2 (32.0-36.0) g/dL RDW Std Deviation 60.9 H (36.4-46.3) fL RDW Coeff of Grace 16.2 H (11.5-14.5) % Plt Count 277 (130-400) K/uL MPV 9.9 (9.4-12.4) fL Immature Gran % (Auto) 1.4 % Neut % (Auto) 77.3 % Lymph % (Auto) 10.5 % [place] % (Auto) 8.8 % Eos % (Auto) 1.5 % Baso % (Auto) 0.5 % Neut # (Auto) 9.71 H (1.40-6.50) K/uL Lymph # (Auto) 1.32 (1.20-3.40) K/uL [place] # (Auto) 1.11 H (0.11-0.59) K/uL Eos # (Auto) 0.19 (0.00-0.50) K/uL Baso # (Auto) 0.06 (0.00-0.20) K/uL Immature Gran # (Auto) 0.18 (0.01-0.20) K/uL Absolute Nucleated RBC 0.02 (0.00-0.12) K/uL Nucleated RBC % (auto) 0.2 % Polychromasia 1+ PT 37.5 H (9.0-12.0) Seconds INR 3.9 H (0.9-1.1) Sodium 135 L (136-145) mmol/L Potassium 3.2 L (3.5-5.1) mmol/L Chloride 99 (98-107) mmol/L Carbon Dioxide 29 (21-32) mmol/L Anion Gap 7 (3-11) BUN 35 H (6-23) mg/dl Creatinine 3.14 H (0.6-1.4) mg/dl Est Cr Clr Drug Dosing Not Reportable eGFR 19.39 BUN/Creatinine Ratio 11.1 (10-20) Glucose 130 H (70-99(Fasting)) mg/dl POC Glucose (70-99) mg/dl Calcium 9.4 (8.6-10.3) mg/dl Phosphorus (2.5-4.9) mg/dl Magnesium 1.8 (1.7-2.4) mg/dl Iron (35-175) mcg/dl TIBC (250-450) mcg/dl Transferrin (200-360) mg/dl Transferrin % Sat (20-50) % Ferritin (8-388) ng/ml Total Bilirubin 0.3 (0.2-1.0) mg/dl AST 13 (13-39) U/L ALT 9 (7-52) U/L Alkaline Phosphatase 75 (34-104) U/L Troponin I High Sens 30.8 H (0-20) pg/ml Total Protein 6.2 (6.0-8.3) gm/dl Albumin 3.5 (3.4-5.0) gm/dl Globulin 2.7 (2.5-4.0) gm/dl Albumin/Globulin Ratio 1.3 (0.9-2) Vitamin B12 564 (180-914) pg/ml Folate 17.58 (>5.38) ng/ml Procalcitonin 0.45 (0-0.5) ng/ml Urine Color Urine Appearance (Clear) Urine pH (4.5-7.5) Ur Specific [place] (1.000-1.030) Urine Protein (Negative) Urine Glucose (UA) (Negative) Urine Ketones (Negative) Urine Blood (Negative) Urine Nitrite (Negative) Urine Bilirubin (Negative) Urine Urobilinogen (Negative) Ur Leukocyte Esterase (Negative) Urine WBC (Auto) (0-5) /hpf Urine RBC (Auto) (0-2) /hpf U Hyaline Cast (Auto) (0-2) /lpf U Epithel Cells (Auto) (0-2) /hpf Urine Bacteria (Auto) (None Seen) Adenovirus (PCR) (NotDetected) B. pertussis DNA (PCR) (NotDetected) B.parapertussis DNA PCR (NotDetected) C. pneumoniae DNA (PCR) (NotDetected) Coronavirus OC43 (PCR) (NotDetected) Coronavirus HKU1 (PCR) (NotDetected) Coronavirus 229E (PCR) (NotDetected) SARS-CoV-2 (PCR) (NotDetected) Coronavirus NL63 (PCR) (NotDetected) Human Metapneumovir PCR (NotDetected) Influenza Type A (PCR) (NotDetected) Influenza Type B (PCR) (NotDetected) M. pneumoniae (PCR) (NotDetected) Parainfluenza 1 (PCR) (NotDetected) Parainfluenza 2 (PCR) (NotDetected) Parainfluenza 3 (PCR) (NotDetected) Parainfluenza 4 (PCR) (NotDetected) RSV (PCR) (NotDetected) Entero/Rhino (PCR) (NotDetected) Blood Type A Positive Antibody Screen NEGATIVE Crossmatch See Detail PG Care Time/CCT Total # of Minutes Spent Total Time Spent with Patient: Total time spent is greater than 50% in coordination of care (as documented) at patient's floor/unit and/or counseling patient: Coding Level of Care Code 66991 INT INP/OBS CARE 2/55MIN Diagnoses Rectal bleeding K62.5
--- NOTE | 2024-06-09 10:33 | Nephrology Consultation ---
Date of Consultation June 09, 2024 Assessment & Plan (1) End-stage renal disease on hemodialysis: No e/o fluid overload or major electrolyte issues. Dialysis lately complicated by low BP and extreme Fatigue. He is frustrated how he is feeling after dialysis. Still has good bit of residual urine output. next HD will be tomorrow if he is still in hospital. will do for 3 hrs only and take 1.5 kilo off. lasix 100 mg iv x 1 today (2) GI bleed: Severe Anemia with hgb of 5.9 Likely sec to GI bleed. S/p PRBC x 2 yesterday. (3) Symptomatic anemia: History of Present Illness Attending Physician: Michael Loving MD History of Present Illness 78/M with ESRD on HD with [facility]. Also has CAD s/p stent, s/p bioprosthetic aortic valve replacement, anticoagulated on warfarin, bladder cancer presented to ER with c/o weakness. He did have Dialysis yesterday. Patient states has been having a lot of fatigue and generalized weakness with dialysis sessions recently.c/o dry heaves without vomiting in the evenings after dialysis. The other days he doesn't have dry heaves. Reports some SOB with exertion. Yesterday during dialysis supplemental oxygen was applied. He doesn't use oxygen at home. He denies any cough, CP, rhinorrhea. Makes small amount of urine. Denies hematuria, dysuria. States constipated for 5 days and yesterday had BM and states noticed very small amount of red blood. Denies further rectal bleeding. Denies melena or hematochezia, fever/chills, diaphoresis, N/V/D/C, [place], dizziness, syncope, vision changes, neck pain, CP, SOB, orthopnea, palpitations, cough, sore throat, choking, otalgia, rhinorrhea, abdominal pain, paresthesias, weakness, extremity weakness, extremity edema, rashes, urinary symptoms. In the ED hgb was noted to be 5.9 and got 2 Units PRBC. hgb now 7.6. Still feels weak. Physical Exam Physical Exam: General: no distress, Awake and alert. ENT: mucous membranes moist Neck: supple, no JVD Lungs: no respiratory distress on 1L O2 via NC with O2 sat 100%, diminished breath sounds bilateral bases, slight scattered wheezing CV: RRR, no murmur, trace pretibial edema Abd: normal BS, soft, non-tender Ext: no cyanosis, no calf tenderness Neuro: A&O x 3, no focal deficits noted, normal affect Skin: warm, dry Allergies Allergy/AdvReac Type Severity Reaction Status Date / Time cephalexin Allergy Severe Tongue and Verified 06/08/24 20:11 face swelling tamsulosin Allergy Severe angioedema Verified 06/08/24 20:11 Home Medications Medication Instructions Recorded Confirmed Type atorvastatin 80 mg tablet 80 mg PO HS 07/01/22 06/08/24 History finasteride 5 mg tablet 5 mg PO HS 07/01/22 06/08/24 History aspirin 81 mg chewable tablet 81 mg PO HS 07/04/22 06/08/24 History torsemide 20 mg tablet 20 mg PO [id number] 12/17/23 06/08/24 History warfarin 5 mg tablet See Rx Instructions .Route .COMPLEX 12/17/23 06/08/24 History vitamins no.144-folic 2 tab PO DAILY 06/08/24 06/08/24 History acid 400 mcg chewable tablet () sevelamer carbonate 800 mg tablet 800 mg PO TID 06/08/24 06/08/24 History Patient History Medical History Anemia Gastric nodule Type 2 diabetes mellitus NIDDM Bifascicular block ongoing since 2010 Umbilical hernia chronic per patient-denies change or worsening History of blood transfusion pre-op aortic valve replacement CAD (coronary artery disease) s/p 1 stent in 2019 HTN (hypertension) controlled, stable per pt History of diverticulitis entered into EMR 09/2022-patient states last flare was 1 year ago History of colon polyps BPH (benign prostatic hyperplasia) CKD (chronic kidney disease), stage V Arthritis Hx of bladder cancer surgery only Hyperlipidemia Surgical History History of cataract surgery left and right H/O cystoscopy History of tooth extraction Aortic valve replaced 2019 at [facility] (followed by Dr. Wei) History of heart artery stent 1 stent placed 2018 History of orchiectomy, unilateral History of arthroscopy of left knee History of colonoscopy Family History Mother Family history of diabetes mellitus Father Family hx of colon cancer Other No family history of adverse response to anesthesia Social History Smoking Status: Former smoker Tobacco Type: Cigarettes Second Hand Exposure: No; Do You Dip or Chew Tobacco: No; Hx Alcohol Use: No Hx Substance Use: No Preferred Language: Maltese Communication Ability: Effective Emergency Vehicle Operations Instructor Required: No Beliefs That Will Affect Care: None Current Living Situation: Spouse Feels Safe at Home: Yes Assistive Devices: Cane, Hearing Aid - Bilateral and Hearing Aid - Left Results & Data Vital Signs (Past 12 Hours) Vital Signs Temp Pulse Pulse Resp BP BP Pulse Ox 06/09/24 07:38 36.7 C 86 18 111/64 91 06/09/24 07:32 82 06/09/24 01:34 36.8 C 86 105/64 94 06/09/24 00:24 37.1 C 87 100/50 L 93 06/08/24 23:54 36.9 C 88 87/36 L 99 06/08/24 23:39 36.3 C L 87 109/69 99 06/08/24 23:17 36.4 C L 72 96/61 L 90 06/08/24 23:00 86 06/08/24 23:00 06/08/24 22:52 36.6 C 96 H 28 H 117/68 91 O2 Del Method O2 Flow Rate 06/09/24 07:38 Nasal Cannula 1 06/09/24 07:32 06/09/24 01:34 06/09/24 00:24 06/08/24 23:54 3 06/08/24 23:39 3 06/08/24 23:17 06/08/24 23:00 06/08/24 23:00 Room Air 06/08/24 22:52 Room Air Laboratory Results CBC renal panel and CXR reviewed
--- NOTE | 2024-06-09 12:37 | Hospitalist Progress Note ---
Date of Service June 09, 2024 Assessment & Plan (1) Symptomatic anemia: Plan 78 year old male with PMH of CAD s/p stent, s/p bioprosthetic aortic valve replacement, anticoagulated on warfarin, ESRD on HD, hypertension, hyperlipidemia, bladder cancer presented to ER with c/o progressive weakness. He reported a lot of fatigue and generalized weakness with dialysis sessions recently, shortness of breath with exertion, feeling very weak and lightheaded. Patient denies any new cough, does have some baseline cough. Makes small amount of urine. Denies hematuria/dysuria. Patient reports being constipated for about 5 days before he was able to move bowel 1 day prior to arrival which he reports was black in color, denies seeing any red blood in the stool to me during bedside exam on 06/09. He is being managed for the following: Symptomatic anemia: UGI vs LGI bleed Patient presents with progressive weakness, admitting hemoglobin of 5.9, FOBT positive. Admitting CTAP reviewed, moderate stool in the rectum noted. Patient received 2 unit PRBC. Probable causes could be UGI bleed, LGI bleed [Hemorrhoid, diverticular bleed] Repeat H&H during afternoon and in the evening, labs in AM. Transfuse blood for hemoglobin less than 7 or for symptomatic anemia. Continue with PPI, NPO. GI on board, appreciate recommendation. Diet once cleared per GI. Hold ASA/Coumadin. Currently hold IVF given dialysis pt, monitor closely. Constipation: Titrate bowel regimen with a goal of 1-2 bowel movements a day. Follow. Possible atypical pneumonia, volume overload 2/2 incomplete dialysis: CXR with mild opacification of right cardiophrenic angle and is s/o mild volume overload, patient with minimal cough at baseline but denies any sputum. Respiratory BioFire negative. Leukocytosis noted, procalcitonin negative. Wheezing was noted on exam at presentation, could be d/t volume overload 2/2 incomplete dialysis [employer]. Continue with doxycycline 06/09. Wean down O2 as needed. Nephro on board to help w/ HD. ESRD on dialysis: On MWF schedule. Had HD on the day of arrival but finished session early secondary to weakness. Nephro consult. Aortic valve replacement, history of: History of aortic stenosis status post TAVR in 2019, anticoagulated on warfarin. Cardiology consult for assistance with anticoagulation recommendation. Elevated troponin: Troponin flat trending 20s, patient with no chest pain. Troponin elevated likely in the setting of chronic kidney disease on ESRD. CAD: Status post stent 2019. Aspirin on hold for now, see above. Continue statin. DVT prophylaxis: SCDs PCU Full Code as per discussion with pt, however reports would not want prolonged intubation if poor prognosis Follows with Dr Maki for routine care Admission and Anticipated Discharge Date Admission Date: June 08, 2024 Subjective Patient was seen and examined at bedside. Patient was lying in bed, on 1 L oxygen via nasal cannula, NAD, resting comfortably. Patient reports minimal cough with no sputum. Denies sore throat and fever. Patient reported black stool prior to arrival. Denies fresh red blood. Patient reports overall his weakness getting better and feeling better today. Physical Exam Physical Exam: General: no distress, Obese class II. Head: normocephalic, atraumatic Eyes: conjunctiva non-injected, anicteric ENT: normal inspection external ears, nose, mucous membranes moist Neck: supple, trachea midline Lungs: no respiratory distress on 1L O2 via NC, diminished breath sounds bilateral bases, no wheezing CV: RRR, no murmur, trace pretibial edema Abd: normal BS, soft, non-tender Ext: no cyanosis, no calf tenderness Neuro: A&O x 3, no focal deficits noted, normal affect Skin: warm, dry Results & Data Results & Data Vital Signs (Past 12 Hours) Vital Signs Temp Pulse Pulse Resp BP BP Pulse Ox 06/09/24 11:33 36.7 C 83 18 108/65 94 06/09/24 11:12 06/09/24 07:38 36.7 C 86 18 111/64 91 06/09/24 07:32 82 06/09/24 01:34 36.8 C 86 105/64 94 06/09/24 00:24 37.1 C 87 100/50 L 93 O2 Del Method O2 Flow Rate 06/09/24 11:33 Nasal Cannula 1 06/09/24 11:12 Nasal Cannula 1 06/09/24 07:38 Nasal Cannula 1 06/09/24 07:32 06/09/24 01:34 06/09/24 00:24
[2024-06-09 12:40] LABS: Hep B Surface Ag with confirm Negative (Negative)
[2024-06-09 12:50] LABS: Hepatitis B Surface Ab Quant < 3.00 mIU/mL (>or=10mIU/mL Immune); Hepatitis B Surface Antibody Non-Immune
--- NOTE | 2024-06-09 13:43 | Electrocardiogram Report ---
Test Reason : Blood Pressure : */* mmHG Vent. Rate : 86 BPM Atrial Rate : 86 BPM P-R Int : 200 ms QRS Dur : 144 ms QT Int : 450 ms P-R-T Axes : 45 -69 80 degrees QTcB Int : 538 ms Sinus rhythm with occasional Premature ventricular complexes and Fusion complexes 1st degree AV block Right bundle branch block Left anterior fascicular block Bifascicular block Left ventricular hypertrophy with repolarization abnormality Abnormal ECG When compared with ECG of 06-May-2024 12:56, Fusion complexes are now Present Left anterior fascicular block is now Present QRS voltage has increased Confirmed by Wagner Angeles ([id number]) on 06/09/2024 1:43:34 PM Referred By: Confirmed By: Wagner Angeles
[2024-06-09 14:52] LABS: Hematocrit (blood only) 21.7 % (42.0-52.0); Hemoglobin 7.1 g/dl (14.0-18.0); Mean Corpuscular Hemoglobin 32.3 pg (25.0-34.0); Mean Corpuscular Hgb Conc 32.7 g/dL (32.0-36.0); Mean Corpuscular Volume 98.6 fL (80.0-100.0); Mean Platelet Volume 9.7 fL (9.4-12.4); Nucleated RBC # (auto) 0.05 K/uL (0.00-0.12); Nucleated RBC % (auto) 0.4 %; Platelet Count 232 K/uL (130-400); RDW Coefficient of Variation 20.5 % (11.5-14.5); RDW Standard Deviation 71.5 fL (36.4-46.3); White Blood Count 11.37 K/ul (4.8-10.8)
[2024-06-09] MEDS: POLYETHYLENE (MIRALAX) 17 GM PACK PO SCH (17:12)
[2024-06-09] MEDS: DOCUSATE SODIUM 100 MG CAP PO SCH (17:12)
[2024-06-09 20:34] LABS: Hematocrit (blood only) 22.3 % (42.0-52.0); Hemoglobin 7.1 g/dl (14.0-18.0)
[2024-06-09] MEDS: FINASTERIDE 5 MG TAB PO SCH (20:49)
[2024-06-10] MEDS: FUROSEMIDE 40 MG/4 ML VIAL IV ONE (04:21)
[2024-06-10] MEDS: ALBUT/IPRATROP 3MG/0.5MG NEB 3 ML VIAL NEB STA ×2 (04:32→16:56)
[2024-06-10] MEDS: MAGNESIUM SULFATE / D5W 1 GM/100 ML BAG IV ONE (04:44)
[2024-06-10 04:48] LABS: Base Excess VBG -1.6 mEq/L; HCO3 VBG 26 mmol/L; Oxygen Saturation VBG 94.3 %; PCO2 VBG 52 mmHg (38-50); PO2 VBG 64 mmHg
[2024-06-10 04:59] LABS: Hematocrit (blood only) 22.4 % (42.0-52.0); Hemoglobin 7.1 g/dl (14.0-18.0); Mean Corpuscular Hemoglobin 31.7 pg (25.0-34.0); Mean Corpuscular Hgb Conc 31.7 g/dL (32.0-36.0); Mean Platelet Volume 9.4 fL (9.4-12.4); Nucleated RBC # (auto) 0.07 K/uL (0.00-0.12); Nucleated RBC % (auto) 0.5 %; Platelet Count 242 K/uL (130-400); RDW Coefficient of Variation 20.4 % (11.5-14.5); Red Blood Count 2.24 M/uL (4.70-6.10); White Blood Count 12.91 K/ul (4.8-10.8)
[2024-06-10 05:17] LABS: INR 4.2 (0.9-1.1); Prothrombin Time 40.3 Seconds (9.0-12.0)
[2024-06-10 05:30] LABS: BUN Creatinine Ratio 9.7 (10-20); Calcium 9.5 mg/dl (8.6-10.3); Creatinine Clr Calc Pharmacy 10.9 ml/min; Magnesium 1.9 mg/dl (1.7-2.4); Phosphorus 5.6 mg/dl (2.5-4.9); Potassium 4.4 mmol/L (3.5-5.1)
--- NOTE | 2024-06-10 05:38 | XRay Report ---
EXAM: XR chest 1V portable CLINICAL HISTORY: Short of Breath TECHNIQUE: An X-ray image of the chest is obtained in AP projection. COMPARISON: Prior study dated 06/08/2024. FINDINGS: Pulmonary Parenchyma: Progression of bilateral lower lung zones ill-defined radio-opaque alveolar opacification, more extensive at left lower lung zone, and extending to involve middle and upper lung zones to a lesser extent Prominent broncho vascular markings and hilar vessels Blunting of both costophrenic angles, more on right side, suggesting bilateral pleural effusion Heart and Mediastinum: Heart size and shape are normal. No mediastinal widening or masses. No hilar or mediastinal lymphadenopathy. Bony Thorax: Bony thorax appears intact without fractures or deformities. Soft Tissues: Soft tissues overlying the chest wall are unremarkable. IMPRESSION: 1. Progression of bilateral lower lung zones ill-defined radio-opaque alveolar opacification, more extensive at left lower lung zone, and extending to involve middle and upper lung zones to a lesser extent, these findings could be due to pulmonary edema, yet the possibility of underlying infection can't be ruled out. 2. Prominent broncho vascular markings and hilar vessels. 3. Newly developed blunting of both costophrenic angles, more on the right side, suggesting bilateral pleural effusion. Electronically signed by Min Gallegos 06-10-2024 05:37 AM
[2024-06-10] MEDS: FUROSEMIDE INJ 20 MG/2 ML VIAL IV ONE (05:53)
[2024-06-10] MEDS: PHYTONADIONE 5 MG in DEXTROSE 5% 50 ML IV ONE (05:53)
[2024-06-10 06:35] LABS: Base Excess VBG -2.3 mEq/L; HCO3 VBG 25 mmol/L; Oxygen Saturation VBG 93.2 %; PCO2 VBG 52 mmHg (38-50); PO2 VBG 67 mmHg; pH VBG 7.29 (7.36-7.41)
[2024-06-10] MEDS ORDERED: SODIUM CHLORIDE 0.9% 100 ML IV PRN (08:17)
[2024-06-10] MEDS ORDERED: SODIUM CHLORIDE 0.9% 50 ML IV PRN (08:17)
[2024-06-10] MEDS: MIDODRINE HCL 10 MG TAB PO STA (09:30)
--- NOTE | 2024-06-10 10:21 | Dialysis Progress Note ---
Date of Service June 10, 2024 Assessment & Plan Admission and Anticipated Discharge Date Admission Date: June 08, 2024 Subjective Assessment & Plan (1) End-stage renal disease on hemodialysis: He was SOB last night and even needed BiPap. Hard to tell how much is fluid related or related with Low hgb and/or Infection. No major electrolyte issues. Dialysis lately ( and today) complicated by low BP and extreme Fatigue. He is frustrated how he is feeling after dialysis. Still has good bit of residual urine output. May even do dialysis tomorrow briefly for extra fluid removal. (2) GI bleed: Severe Anemia with hgb of 5.9 Likely sec to GI bleed. S/p PRBC x 2 and another x 1 unit today. (3) Symptomatic anemia: S---Seen in dialysis. BP was low and we then gave him Midodrine. BP improved a bit. Some SOB. needing O2. AVF fine. Physical Exam Physical Exam: General: no distress, Awake and alert. ENT: mucous membranes moist Neck: supple, no JVD Lungs: no respiratory distress on 1L O2 via NC with O2 sat 100%, diminished breath sounds bilateral bases, slight scattered wheezing CV: RRR, no murmur, trace pretibial edema Abd: normal BS, soft, non-tender Ext: no cyanosis, no calf tenderness Neuro: A&O x 3, no focal deficits noted, normal affect Skin: warm, dry Results & Data Vital Signs (Past 12 Hours) Vital Signs Temp Pulse Pulse Resp BP BP Pulse Ox 06/10/24 10:10 36.8 C 80 18 104/48 L 95 06/10/24 09:50 36.6 C 76 18 99/56 L 95 06/10/24 08:07 36.7 C 88 18 104/64 95 06/10/24 07:49 81 16 97 06/10/24 07:34 88 06/10/24 05:15 90 20 92 06/10/24 04:33 18 94 06/10/24 03:56 36.9 C 95 H 116/65 96 06/10/24 03:42 06/10/24 00:00 89 06/09/24 23:13 36.9 C 91 H 18 102/61 93 O2 Del Method O2 Flow Rate FiO2 06/10/24 10:10 3 06/10/24 09:50 3 06/10/24 08:07 Nasal Cannula 06/10/24 07:49 45 06/10/24 07:34 06/10/24 05:15 45 06/10/24 04:33 Nasal Cannula 3 06/10/24 03:56 Nasal Cannula 3 06/10/24 03:42 Nasal Cannula 3 06/10/24 00:00 06/09/24 23:13 Nasal Cannula 2.0
--- NOTE | 2024-06-10 10:25 | Gastroenterology Progress Note ---
Date of Service June 10, 2024 Assessment & Plan (1) Rectal bleeding: Plan: 78 year old male w/ history of CAD s/p stent, s/p bioprosthetic aortic valve replacement, anticoagulated on warfarin, ESRD on HD, hypertension, hyperlipidemia, bladder cancer presented to ER w/ weakness and report of rectal bleeding admitted w/ anemia w/ HGB 5.9 requiring 2units RBC. He remained hemodynamically stable over night w/ HGB 7.1 w/o reports of melena or hematochezia. INR returned this AM at 4.2. As there is no evidence of active GI bleeding, EGD will be post-poned given INR elevation. Continue conservative measures today. NPO Thursday 23:59 EGD Thursday Trend H&H. Monitor and document GI output. Transfuse PRN. IV PPI BID. Hold ASA/Coumadin. Avoid constipation/straining given history of hemorrhoids. I spent a total of 40 minutes on the date of service in review of patient's record, and previously obtained information in person and appropriate medical visit, discussion and education of plan, with patient and/or caregiver, placing orders for tests/referral/procedures as medically necessary and documentation of pertinent clinical information in patient's medical records for their visit today. Admission and Anticipated Discharge Date Admission Date: June 08, 2024 Supervising Physician Co-Signing Physician Notes Melena. INR corrected by the hospitalist service. Currently 1.6. This is acceptable for upper endoscopy and potential coagulation of AVMs if identified. Subjective Pt was seen and evaluated, chart reviewed. In dialysis. Denies abdominal pain. No nausea/vomiting. Had a stool this AM he reports its dark brown. He is not sure if it was black. No BRB. HGB stable over night. INR is elevated this AM 4.2. HGB 10 --> 5.9 --> 2 units --> 7.6 --> 7.1 --> 7.1 --> 7.1 --> 1 unit INR 3.9 --> 4.2 Review of Systems Review of Systems: All other findings negative except as noted in HPI. Physical Exam Constitutional: WD/WN, vitals as above Cardiovascular: Rate/Rhythm: regular rate and regular rhythm Gastrointestinal (Abdomen): normal bowel sounds, soft, nontender, no hepatosplenomegaly Skin: no rashes, warm and dry Results & Data Results & Data Vital Signs (Past 12 Hours) Vital Signs Temp Pulse Pulse Resp BP BP Pulse Ox 06/10/24 10:10 98.2 F 80 18 104/48 L 95 06/10/24 09:50 97.9 F 76 18 99/56 L 95 06/10/24 08:07 98.1 F 88 18 104/64 95 06/10/24 07:49 81 16 97 06/10/24 07:34 88 06/10/24 05:15 90 20 92 06/10/24 04:33 18 94 06/10/24 03:56 98.4 F 95 H 116/65 96 06/10/24 03:42 06/10/24 00:00 89 06/09/24 23:13 98.4 F 91 H 18 102/61 93 O2 Del Method O2 Flow Rate FiO2 06/10/24 10:10 3 06/10/24 09:50 3 06/10/24 08:07 Nasal Cannula 06/10/24 07:49 45 06/10/24 07:34 06/10/24 05:15 45 06/10/24 04:33 Nasal Cannula 3 06/10/24 03:56 Nasal Cannula 3 06/10/24 03:42 Nasal Cannula 3 06/10/24 00:00 06/09/24 23:13 Nasal Cannula 2.0 Laboratory Results 06/10/24 06/10/24 06/09/24 Range/Units 06:25 04:42 20:10 WBC 12.91 H (4.8-10.8) K/ul RBC 2.24 L (4.70-6.10) M/uL Hgb 7.1 L 7.1 L (14.0-18.0) g/dl Hct 22.4 L 22.3 L (42.0-52.0) % MCV 100.0 (80.0-100.0) fL MCH 31.7 (25.0-34.0) pg MCHC 31.7 L (32.0-36.0) g/dL RDW Std Deviation 73.0 H (36.4-46.3) fL RDW Coeff of Grace 20.4 H (11.5-14.5) % Plt Count 242 (130-400) K/uL MPV 9.4 (9.4-12.4) fL Absolute Nucleated RBC 0.07 (0.00-0.12) K/uL Nucleated RBC % (auto) 0.5 % PT 40.3 H (9.0-12.0) Seconds INR 4.2 H (0.9-1.1) VBG pH 7.29 L 7.30 L (7.36-7.41) VBG pCO2 52 H 52 H (38-50) mmHg VBG pO2 67 64 mmHg VBG HCO3 25 26 mmol/L VBG O2 Saturation 93.2 94.3 % VBG Base Excess -2.3 -1.6 mEq/L Sodium 137 (136-145) mmol/L Potassium 4.4 (3.5-5.1) mmol/L Chloride 104 (98-107) mmol/L Carbon Dioxide 26 (21-32) mmol/L Anion Gap 7 (3-11) BUN 59 H (6-23) mg/dl Creatinine 6.11 H* D (0.6-1.4) mg/dl Est Cr Clr Drug Dosing 10.9 ml/min eGFR 8.72 BUN/Creatinine Ratio 9.7 L (10-20) Glucose 102 H (70-99(Fasting)) mg/dl Calcium 9.5 (8.6-10.3) mg/dl Phosphorus 5.6 H (2.5-4.9) mg/dl Magnesium 1.9 (1.7-2.4) mg/dl Troponin I High Sens 27.7 H (0-20) pg/ml Hep Bs Antigen (Negative) Hep Bs Antibody Hep Bs Antibody, Quant (>or=10mIU/mL Immune) mIU/mL Hep B Core IgM Ab Blood Type Antibody Screen Crossmatch 06/09/24 06/09/24 06/08/24 Range/Units 14:32 11:10 17:11 WBC 11.37 H (4.8-10.8) K/ul RBC 2.20 L (4.70-6.10) M/uL Hgb 7.1 L (14.0-18.0) g/dl Hct 21.7 L (42.0-52.0) % MCV 98.6 (80.0-100.0) fL MCH 32.3 (25.0-34.0) pg MCHC 32.7 (32.0-36.0) g/dL RDW Std Deviation 71.5 H (36.4-46.3) fL RDW Coeff of Grace 20.5 H (11.5-14.5) % Plt Count 232 (130-400) K/uL MPV 9.7 (9.4-12.4) fL Absolute Nucleated RBC 0.05 (0.00-0.12) K/uL Nucleated RBC % (auto) 0.4 % PT (9.0-12.0) Seconds INR (0.9-1.1) VBG pH (7.36-7.41) VBG pCO2 (38-50) mmHg VBG pO2 mmHg VBG HCO3 mmol/L VBG O2 Saturation % VBG Base Excess mEq/L Sodium (136-145) mmol/L Potassium (3.5-5.1) mmol/L Chloride (98-107) mmol/L Carbon Dioxide (21-32) mmol/L Anion Gap (3-11) BUN (6-23) mg/dl Creatinine (0.6-1.4) mg/dl Est Cr Clr Drug Dosing ml/min eGFR BUN/Creatinine Ratio (10-20) Glucose (70-99(Fasting)) mg/dl Calcium (8.6-10.3) mg/dl Phosphorus (2.5-4.9) mg/dl Magnesium (1.7-2.4) mg/dl Troponin I High Sens 28.8 H (0-20) pg/ml Hep Bs Antigen Negative (Negative) Hep Bs Antibody Non-Immune Hep Bs Antibody, Quant < 3.00 (>or=10mIU/mL Immune) mIU/mL Hep B Core IgM Ab Pending Blood Type A Positive Antibody Screen NEGATIVE Crossmatch See Detail PG Care Time/CCT Total # of Minutes Spent Total Time Spent with Patient: Total time spent is greater than 50% in coordination of care (as documented) at patient's floor/unit and/or counseling patient: Coding Level of Care Code 17634 SUB INP/OBS CARE 2/35MIN Diagnoses Rectal bleeding K62.5
[2024-06-10] MEDS ORDERED: EPOETIN ALFA 20,000 UNITS in SYRINGE 0 ML IV STA (10:28)
[2024-06-10] MEDS: EPOETIN ALFA 20,000 UNITS/ML VIAL IV SCH (11:04)
[2024-06-10 14:48] LABS: Hematocrit (blood only) 25.1 % (42.0-52.0); Hemoglobin 8.1 g/dl (14.0-18.0)
[2024-06-10 15:14] LABS: INR 1.7 (0.9-1.1); Prothrombin Time 17.7 Seconds (9.0-12.0)
--- NOTE | 2024-06-10 15:44 | Anesthesiology Consultation ---
Date of Service June 10, 2024 Assessment & Plan Chart Review Chart Review: Acceptable Risk for Surgery and Patient NOT seen in Pre Admission Testing Consults Requested none ASA ASA4 Proposed Anesthesia Anesthesia Type: MAC Risk / Benefits Reviewed With: PT / POA / Parent / Guardian, Accepts Plan and Informed Consent Obtained History Surgery Operation Date: 06/10/24 17:00 Proposed Procedures p Esophagogastroduodenoscopy Dr. Anthnoy Cruz MD Height/Weight Height: 5 ft 6 in Weight: 102.4 kg Allergies Allergy/AdvReac Type Severity Reaction Status Date / Time cephalexin Allergy Severe Tongue and Verified 06/08/24 20:11 face swelling tamsulosin Allergy Severe angioedema Verified 06/08/24 20:11 Medications Home Medications Medication Instructions Recorded Confirmed Last Taken atorvastatin 80 mg tablet 80 mg PO HS 07/01/22 06/08/24 06/07/24 finasteride 5 mg tablet 5 mg PO HS 07/01/22 06/08/24 06/07/24 aspirin 81 mg chewable tablet 81 mg PO HS 07/04/22 06/08/24 06/07/24 torsemide 20 mg tablet 20 mg PO [id number] 12/17/23 06/08/24 06/07/24 warfarin 5 mg tablet See Rx Instructions .Route .COMPLEX 12/17/23 06/08/24 06/07/24 vitamins no.144-folic 2 tab PO DAILY 06/08/24 06/08/24 Unknown acid 400 mcg chewable tablet () sevelamer carbonate 800 mg tablet 800 mg PO TID 06/08/24 06/08/24 06/08/24 12:00 Active Medications Generic Name Dose Route Start Last Admin Trade Name Niharika PRN Reason Stop Dose Admin Atorvastatin Calcium 80 mg 06/08/24 21:40 06/09/24 20:49 Atorvastatin 40 Mg Tab PO 07/08/24 21:39 80 mg HS NATHANAEL Administration Docusate Sodium 100 mg 06/09/24 12:45 06/10/24 08:10 Docusate Sodium 100 Mg Cap PO 07/09/24 12:44 100 mg BID NATHANAEL Administration Doxycycline Hyclate 100 mg 06/09/24 09:00 06/10/24 08:10 Doxycycline Hyclate 100 Mg Cap PO 06/14/24 08:59 100 mg BIDM NATHANAEL Administration Epoetin William 20,000 units 06/10/24 10:30 06/10/24 11:04 Epoetin William 20,000 Units/Ml Vial IV 06/10/24 18:00 20,000 units TODAY@1030 NATHANAEL Administration Finasteride 5 mg 06/09/24 21:00 06/09/24 20:49 Finasteride 5 Mg Tab PO 07/09/24 20:59 5 mg HS NATHANAEL Administration Pantoprazole Sodium 40 mg in 10 mls @ 5 mls/min 06/08/24 22:45 06/10/24 08:10 Protonix IV 07/08/24 22:44 5 mls/min BID NATHANAEL Administration Polyethylene Glycol 17 gm 06/09/24 12:45 06/10/24 08:11 Polyethylene (Miralax) 17 Gm Pack PO 07/09/24 12:44 Not Given DAILY NATHANAEL Past Medical History Medical History Anemia Gastric nodule Type 2 diabetes mellitus NIDDM Bifascicular block ongoing since 2010 Umbilical hernia chronic per patient-denies change or worsening History of blood transfusion pre-op aortic valve replacement CAD (coronary artery disease) s/p 1 stent in 2019 HTN (hypertension) controlled, stable per pt History of diverticulitis entered into EMR 09/2022-patient states last flare was 1 year ago History of colon polyps BPH (benign prostatic hyperplasia) CKD (chronic kidney disease), stage V Arthritis Hx of bladder cancer surgery only Hyperlipidemia Past Family History Family History Mother Family history of diabetes mellitus Father Family hx of colon cancer Other No family history of adverse response to anesthesia Past Surgical History Surgical History History of cataract surgery left and right H/O cystoscopy History of tooth extraction Aortic valve replaced 2019 at [facility] (followed by Dr. Wei) History of heart artery stent 1 stent placed 2019 History of orchiectomy, unilateral History of arthroscopy of left knee History of colonoscopy Social History Smoking Status: Former smoker Do You Dip or Chew Tobacco: No Hx Alcohol Use: No Hx Substance Use: No substance use type: does not use Physical Exam Vital Signs Last Vital Signs Temp 37.7 C H 06/10/24 15:31 Pulse 88 06/10/24 15:31 Resp 19 06/10/24 15:31 BP 92/52 L 06/10/24 15:31 Pulse Ox 92 06/10/24 15:31 O2 Del Method Nasal Cannula 06/10/24 15:31 O2 Flow Rate 2 06/10/24 15:31 FiO2 45 06/10/24 07:49 Testing Laboratory Results 06/10/24 14:25 06/10/24 04:42 PT 17.7 Seconds (9.0-12.0) H 06/10/24 14:25 INR 1.7 (0.9-1.1) H 06/10/24 14:25 Urine Color Yellow 06/09/24 02:00 Urine Appearance Cloudy (Clear) A 06/09/24 02:00 Urine pH 6.0 (4.5-7.5) 06/09/24 02:00 Ur Specific [place] 1.012 (1.000-1.030) 06/09/24 02:00 Urine Protein 2+ (Negative) H 06/09/24 02:00 Urine Glucose (UA) Negative (Negative) 06/09/24 02:00 Urine Ketones Negative (Negative) 06/09/24 02:00 Urine Nitrite Negative (Negative) 06/09/24 02:00 Ur Leukocyte Esterase 3+ (Negative) H 06/09/24 02:00 Urine WBC (Auto) >50 /hpf (0-5) H 06/09/24 02:00 Urine RBC (Auto) 0-2 /hpf (0-2) 06/09/24 02:00 U Hyaline Cast (Auto) >20 /lpf (0-2) H 06/09/24 02:00 U Epithel Cells (Auto) 0-2 /hpf (0-2) 06/09/24 02:00 Urine Bacteria (Auto) 3+ (None Seen) H 06/09/24 02:00 Blood Type A Positive 06/08/24 17:11 Antibody Screen NEGATIVE 06/08/24 17:11 06/09/24 02:00 Urine Culture - Preliminary Urine,Clean Catch Pseudomonas aeruginosa Electrocardiogram Date: 06/08/24 Sinus rhythm with occasional Premature ventricular complexes and Fusion complexes 1st degree AV block Right bundle branch block Left anterior fascicular block Bifascicular block Left ventricular hypertrophy with repolarization abnormality Abnormal ECG When compared with ECG of 06-May-2024 12:56, Fusion complexes are now Present Left anterior fascicular block is now Present QRS voltage has increased Confirmed by Wagner Angeles ([id number]) on 06/09/2024 1:43:34 PM Echocardiogram Date: 12/18/23 EF: 65 LV Function: normal
--- NOTE | 2024-06-10 15:56 | Hospitalist Progress Note ---
Date of Service June 10, 2024 Assessment & Plan (1) Symptomatic anemia: Plan 78 year old male with PMH of CAD s/p stent, s/p bioprosthetic aortic valve replacement, anticoagulated on warfarin, ESRD on HD, hypertension, hyperlipidemia, bladder cancer presented to ER with c/o progressive weakness. He reported a lot of fatigue and generalized weakness with dialysis sessions recently, shortness of breath with exertion, feeling very weak and lightheaded. Patient denies any new cough, does have some baseline cough. Makes small amount of urine. Denies hematuria/dysuria. Patient reports being constipated for about 5 days before he was able to move bowel 1 day prior to arrival which he reports was black in color, denies seeing any red blood in the stool to me during bedside exam on 06/09. He is being managed for the following: Symptomatic anemia: UGI vs LGI bleed Patient presents with progressive weakness, admitting hemoglobin of 5.9, FOBT positive. Admitting CTAP reviewed, moderate stool in the rectum noted. Patient received 2 unit PRBC. Probable causes could be UGI bleed, LGI bleed [Hemorrhoid, diverticular bleed] Repeat H&H during afternoon and in the evening, labs in AM. Transfuse blood for hemoglobin less than 7 or for symptomatic anemia. Continue with PPI, NPO. INR 1.7, plan for scope later today. Repeat H&H at 8 PM and in AM. Possibly resume diet after scope with GI clearance. Continue to hold ASA/Coumadin. Plan to dc warfarin, appreciate cards recs. Patient received 1 unit PRBC due to hemoglobin being low at 7.1. Patient did move 1 black stool today morning per patient. Constipation: Titrate bowel regimen with a goal of 1-2 bowel movements a day. Follow. Possible atypical pneumonia, volume overload 2/2 incomplete dialysis: CXR with mild opacification of right cardiophrenic angle and is s/o mild volume overload, patient with minimal cough at baseline but denies any sputum. Respiratory BioFire negative. Leukocytosis noted, procalcitonin negative. 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 Continue with doxycycline 06/09. Wean down O2 as needed. Nephro on board to help w/ HD. Urinary colonization with Pseudomonas: Patient does not have pain and burning while passing urine, 06/09 urinary culture positive for Pseudomonas. Patient is afebrile. 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 upon outpatient chart review, patient did have cystoscopy on May 20, 2024 and urine culture was sent which was positive for Pseudomonas and patient states that he was not treated for that. Hence we will continue to monitor him off of antibiotic for now. ESRD on dialysis: On MWF schedule. Had HD on the day of arrival but finished session early secondary to weakness. Nephro consult. Aortic valve replacement, history of: History of aortic stenosis status post TAVR in 2019, anticoagulated on warfarin. Cardiology consult for assistance with anticoagulation recommendation. Elevated troponin: Troponin flat trending 20s, patient with no chest pain. Tro ponin elevated likely in the setting of chronic kidney disease on ESRD. CAD: Status post stent 2019. Aspirin on hold for now, see above. Continue statin. DVT prophylaxis: SCDs PCU Full Code as per discussion with pt, however reports would not want prolonged intubation if poor prognosis Follows with Dr Maki for routine care Admission and Anticipated Discharge Date Admission Date: June 08, 2024 Subjective Patient was seen and examined at bedside. Patient was lying in bed, on 3 L oxygen via nasal cannula, NAD, resting comfortably. Patient reports minimal cough with no sputum. Denies sore throat and fever. Patient had blackish stool today morning. Patient reports having shortness of breath overnight, chest x-ray revealed pulmonary congestion, needed 3 L oxygen. 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 did review his OP chart and it is seen that his pseudomonas uti has not been treated from may 20 urine c/s. Physical Exam Physical Exam: General: no distress, Obese class II. Head: normocephalic, atraumatic Eyes: conjunctiva non-injected, anicteric ENT: normal inspection external ears, nose, mucous membranes moist Neck: supple, trachea midline Lungs: no respiratory distress on 3L O2 via NC, diminished breath sounds bilateral bases, no wheezing CV: RRR, no murmur, trace pretibial edema Abd: normal BS, soft, non-tender Ext: no cyanosis, no calf tenderness Neuro: A&O x 3, no focal deficits noted, normal affect Skin: warm, dry Results & Data Results & Data Vital Signs (Past 12 Hours) Vital Signs Temp Pulse Pulse Pulse Resp BP BP 06/10/24 15:31 37.7 C H 88 19 92/52 L 06/10/24 12:55 36.7 C 80 18 98/59 L 06/10/24 12:30 36.5 C 91 H 97/51 L 06/10/24 12:00 82 97/54 L 06/10/24 11:30 82 97/56 L 06/10/24 11:00 81 107/76 06/10/24 10:37 06/10/24 10:30 78 109/55 L 06/10/24 10:30 36.7 C 78 18 109/55 L 06/10/24 10:25 36.8 C 79 18 101/51 L 06/10/24 10:10 36.8 C 80 18 104/48 L 06/10/24 10:00 78 107/54 L 06/10/24 09:50 36.6 C 76 18 99/56 L 06/10/24 09:30 86 101/56 L 06/10/24 09:23 36.6 C 90 06/10/24 08:07 36.7 C 88 18 104/64 06/10/24 07:49 81 16 06/10/24 07:34 88 06/10/24 05:15 90 20 06/10/24 04:33 18 06/10/24 03:56 36.9 C 95 H 116/65 Pulse Ox O2 Del Method O2 Flow Rate FiO2 06/10/24 15:31 92 Nasal Cannula 2 06/10/24 12:55 94 Nasal Cannula 2 06/10/24 12:30 06/10/24 12:00 06/10/24 11:30 06/10/24 11:00 06/10/24 10:37 Nasal Cannula 2 06/10/24 10:30 06/10/24 10:30 95 3 06/10/24 10:25 95 3 06/10/24 10:10 95 3 06/10/24 10:00 06/10/24 09:50 95 3 06/10/24 09:30 06/10/24 09:23 06/10/24 08:07 95 Nasal Cannula 06/10/24 07:49 97 45 06/10/24 07:34 06/10/24 05:15 92 45 06/10/24 04:33 94 Nasal Cannula 3 06/10/24 03:56 96 Nasal Cannula 3
--- NOTE | 2024-06-10 16:40 | Communication Note ---
Date of Service: June 10, 2024 EGD Some saliva in the esophagus suction prior to proceeding distally. Small to medium size hiatal hernia. No blood in the stomach or upper GI tract. There was linear erythema extending through the antrum to the pylorus. This could be gastritis though GAVE syndrome is on the differential. A biopsies was performed. The scope was passed the third part of duodenum close examination of the duodenum mucosa on withdrawal did not show any AVMs or bleeding sources. There is no peptic ulcer disease At this point no obvious source for his bleeding however GAVE can be a source for bleeding. Await biopsies for that review. AVMs distal to the upper GI tract are possible jejunal or ileum. This patient did not tolerate his upper GI very well and seems a poor candidate for colonoscopy. Predominately due to upper airway secretions. Recommend symptomatic treatment for his anemia. INR's if can be maintain therapeutic
--- NOTE | 2024-06-10 16:45 | GI REPORT ---
[facility] Patient: SHAYNE WAGONER : 1945 Sex at : Male Age: 78 Years Procedure: Upper GI endoscopy Date: 06/10/2024 Attending Physician: Andrea Cruz MD Referring MD: Mike Maki Indications: - Suspected upper GI bleeding Medications: - Monitored Anesthesia Care Complications: - No immediate complications. Estimated Blood Loss: - Estimated blood loss was minimal. Procedure: - The egd scope was introduced through the mouth and advanced to the third part of the duodenum. - The upper GI endoscopy was performed with difficulty. Successful completion of the procedure was aided by performing chin lift. Findings: - Fluid was found in the middle third of the esophagus and in the lower third of the esophagus. Fluid aspiration was performed. - Localized moderately erythematous mucosa without bleeding was found in the gastric antrum. Biopsies were taken with a cold forceps for histology. - The examined duodenum was normal. Impression: - Fluid in the middle third of the esophagus and in the lower third of the esophagus. Fluid aspiration performed. - Erythematous mucosa in the gastric antrum. Biopsied. - Normal examined duodenum. Recommendation: - Await pathology results. - The changes in the antrum could be GAVE. There was no blood in the upper GI tract. Cannot be definitively identified as the source. I did not find any AVMs in the duodenum. This patient did not tolerate upper endoscopy terribly well. I do think he is a very poor candidate for preparation and colonoscopy. Would recommend symptomatic treatment of his anemia. Iron or blood replacement as needed. PPI. Procedure Code(s): - 27315, Esophagogastroduodenoscopy, flexible, transoral; with biopsy, single or multiple Diagnosis Code(s): - K31.89, Other diseases of stomach and duodenum CPT(R) - 202 copyright [employer]. All Rights Reserved. The CPT codes, CCI edits and ICD codes generated are intended as suggestions and were generated based on input data. These codes are preliminary and upon locomotive crane engineer review may be revised to meet current compliance and payer requirements. The provider is responsible for the final determination of appropriate codes, and modifiers. Andrea Cruz MD This document has been electronically signed. Note Initiated:06/10/2024 Note Completed:06/10/2024 4:44 PM [id number]
--- NOTE | 2024-06-10 17:06 | Anesthesiology Progress Note ---
Date of Service June 10, 2024 Anesthesia Post Procedure Vital Signs Vital Signs: Temp Pulse Pulse Pulse Resp BP BP 06/10/24 16:57 101 H 24 06/10/24 15:52 37.1 C 49 L 16 94/53 L 06/10/24 15:31 37.7 C H 88 19 92/52 L 06/10/24 12:55 36.7 C 80 18 98/59 L 06/10/24 12:30 36.5 C 91 H 97/51 L 06/10/24 12:00 82 97/54 L 06/10/24 11:30 82 97/56 L 06/10/24 11:00 81 107/76 06/10/24 10:37 06/10/24 10:30 78 109/55 L 06/10/24 10:30 36.7 C 78 18 109/55 L 06/10/24 10:25 36.8 C 79 18 101/51 L 06/10/24 10:10 36.8 C 80 18 104/48 L 06/10/24 10:00 78 107/54 L 06/10/24 09:50 36.6 C 76 18 99/56 L 06/10/24 09:30 86 101/56 L 06/10/24 09:23 36.6 C 90 06/10/24 08:07 36.7 C 88 18 104/64 06/10/24 07:49 81 16 06/10/24 07:34 88 06/10/24 05:15 90 20 06/10/24 04:33 18 06/10/24 03:56 36.9 C 95 H 116/65 06/10/24 03:42 06/10/24 00:00 89 06/09/24 23:13 36.9 C 91 H 18 102/61 06/09/24 20:00 06/09/24 19:53 36.8 C 89 18 109/64 Pulse Ox O2 Del Method O2 Flow Rate FiO2 06/10/24 16:57 100 Oxymask 15 06/10/24 15:52 93 Nasal Cannula 2 06/10/24 15:31 92 Nasal Cannula 2 06/10/24 12:55 94 Nasal Cannula 2 06/10/24 12:30 06/10/24 12:00 06/10/24 11:30 06/10/24 11:00 06/10/24 10:37 Nasal Cannula 2 06/10/24 10:30 06/10/24 10:30 95 3 06/10/24 10:25 95 3 06/10/24 10:10 95 3 06/10/24 10:00 06/10/24 09:50 95 3 06/10/24 09:30 06/10/24 09:23 06/10/24 08:07 95 Nasal Cannula 06/10/24 07:49 97 45 06/10/24 07:34 06/10/24 05:15 92 45 06/10/24 04:33 94 Nasal Cannula 3 06/10/24 03:56 96 Nasal Cannula 3 06/10/24 03:42 Nasal Cannula 3 06/10/24 00:00 06/09/24 23:13 93 Nasal Cannula 2.0 06/09/24 20:00 Nasal Cannula 2 06/09/24 19:53 94 Nasal Cannula 1.0 Transfer of Care Handoff Completed per policy Notes Mental Status: alert / awake / arousable Patient Amnestic to Procedure: Yes Nausea / Vomiting: adequately controlled Pain: adequately controlled Airway Patency, RR, SpO2: stable & adequate BP & HR: stable & adequate Hydration State: stable & adequate Anesthetic Complications: no major complications apparent and Pt Satisfied with anesthetic care Notes: post op gilda tx
[2024-06-10] MEDS: ePHEDrine sulfate 50 MG/ML AMP ONE (17:59)
[2024-06-10] MEDS: PROPOFOL IV EMULSION 10 MG/ML 20 ML VIAL IV ONE (17:59)
[2024-06-10] MEDS: LIDOCAINE 2% 2 ML VIAL/AMP(20MG/ML) INFIL ONE (17:59)
[2024-06-10 20:12] LABS: Hematocrit (blood only) 25.6 % (42.0-52.0); Hemoglobin 8.3 g/dl (14.0-18.0)
[2024-06-11 07:07] LABS: Hemoglobin 8.2 g/dl (14.0-18.0); Mean Corpuscular Hemoglobin 31.5 pg (25.0-34.0); Mean Corpuscular Hgb Conc 31.5 g/dL (32.0-36.0); Mean Platelet Volume 9.9 fL (9.4-12.4); Nucleated RBC # (auto) 0.06 K/uL (0.00-0.12); Nucleated RBC % (auto) 0.6 %; Platelet Count 253 K/uL (130-400); RDW Coefficient of Variation 19.8 % (11.5-14.5); RDW Standard Deviation 70.4 fL (36.4-46.3); White Blood Count 10.43 K/ul (4.8-10.8)
[2024-06-11 07:30] LABS: BUN Creatinine Ratio 7.9 (10-20); Calcium 9.5 mg/dl (8.6-10.3); Phosphorus 5.7 mg/dl (2.5-4.9); Potassium 4.1 mmol/L (3.5-5.1)
[2024-06-11 07:47] LABS: INR 1.3 (0.9-1.1)
[2024-06-11] MEDS: TORSEMIDE 20 MG TAB PO SCH (08:41)
[2024-06-11] MEDS: levoFLOXacin/D5W 750 MG/150 ML BAG IV ONE (11:08)
--- NOTE | 2024-06-11 15:42 | Hospitalist Progress Note ---
Date of Service June 11, 2024 Assessment & Plan (1) Symptomatic anemia: Plan 78 year old male with PMH of CAD s/p stent, s/p bioprosthetic aortic valve replacement, anticoagulated on warfarin, ESRD on HD, hypertension, hyperlipidemia, bladder cancer presented to ER with c/o progressive weakness. He reported a lot of fatigue and generalized weakness with dialysis sessions recently, shortness of breath with exertion, feeling very weak and lightheaded. Patient denies any new cough, does have some baseline cough. Makes small amount of urine. Denies hematuria/dysuria. Patient reports being constipated for about 5 days before he was able to move bowel 1 day prior to arrival which he reports was black in color, denies seeing any red blood in the stool to me during bedside exam on 06/09. He is being managed for the following: Symptomatic anemia: Likely UGI bleed Patient presents with progressive weakness, admitting hemoglobin of 5.9, FOBT positive. Admitting CTAP reviewed, moderate stool in the rectum noted. Patient received 2 unit PRBC. s/p 3 units PRBC, Hb stable around 8, no BM since AM of 06/10. s/p EGD scope 06/10, erythematous gastric antral mucosa noted and biopsied, f/u path result. Transfuse blood for hemoglobin less than 7 or for symptomatic anemia. Pt tolerating diet well. Labs in AM. Continue to hold ASA/Coumadin. Plan to dc warfarin, appreciate cards recs. GI evaled, appreciates recs. Constipation: Titrate bowel regimen with a goal of 1-2 bowel movements a day. Follow. Pt refusing bowel regimen, advised to comply to help w/ constipation and hemorrhoids, he laughs it off. Possible atypical pneumonia, volume overload 2/2 incomplete dialysis: CXR with mild opacification of right cardiophrenic angle and is s/o mild volume overload, patient with minimal cough at baseline but denies any sputum. Respiratory BioFire negative. Leukocytosis noted, procalcitonin negative. 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 Wean down O2 as needed. Nephro on board to help w/ HD. Urinary colonization with Pseudomonas Vs Acute infection: Patient does not have pain and burning while passing urine, 06/09 urinary culture positive for Pseudomonas. Patient w/ low grade fever 06/10, start levaquin 06/11, plan for 7- 10 days, add probiotic. ESRD on dialysis: On MWF schedule. Had HD on the day of arrival but finished session early secondary to weakness. Nephro consult. Aortic valve replacement, history of: History of aortic stenosis status post TAVR in 2019, anticoagulated on warfarin. Cardiology consult for assistance with anticoagulation recommendation appreciated. Elevated troponin: Troponin flat trending 20s, patient with no chest pain. Troponin elevated likely in the setting of chronic kidney disease on ESRD. CAD: Status post stent 2019. Aspirin on hold for now, see above. Continue statin. DVT prophylaxis: SCDs PCU Full Code as per discussion with pt, however reports would not want prolonged intubation if poor prognosis Follows with Dr Maki for routine care Likely dc may Admission and Anticipated Discharge Date Admission Date: June 08, 2024 Subjective Patient was seen and examined at bedside. Patient was sitting up in chair, on 3 L oxygen via nasal cannula, NAD, resting comfortably. Patient denies any further bowel movement after the last 1 yesterday morning which was black in color. Patient denies nausea, vomiting, abdominal pain, reports tolerating diet well. Patient's hemoglobin has been holding stable around 8.2. Patient noted to have low-grade fever last evening. After digging his past history and outpatient chart review regarding Pseudomonas UTI, I could not locate where he had discussion with his urology regarding not treating his Pseudomonas UTI in future that he claimed to have such discussion yesterday. It appears that he got treatment for Pseudomonas UTI in December of last year. I did reach out to his urology via [place] text, has not gotten reply. Since he had low-grade fever last evening, I discussed with him in detail and we are starting him on Levaquin, plan to treat for 7 to 10 days. Patient is agreeable for Levaquin treatment. Physical Exam Physical Exam: General: no distress, Obese class II. Head: normocephalic, atraumatic Eyes: conjunctiva non-injected, anicteric ENT: normal inspection external ears, nose, mucous membranes moist Neck: supple, trachea midline Lungs: no respiratory distress on 3L O2 via NC, diminished breath sounds bilateral bases, no wheezing CV: RRR, no murmur, trace pretibial edema Abd: normal BS, soft, non-tender Ext: no cyanosis, no calf tenderness Neuro: A&O x 3, no focal deficits noted, normal affect Skin: warm, dry Results & Data Results & Data Vital Signs (Past 12 Hours) Vital Signs Temp Pulse Pulse Resp BP Pulse Ox O2 Del Method 06/11/24 13:48 83 06/11/24 11:00 36.7 C 80 17 95/56 L 98 Room Air 06/11/24 09:49 Nasal Cannula 06/11/24 07:54 37 C 86 16 94/50 L 93 Nasal Cannula 06/11/24 07:02 85 O2 Flow Rate 06/11/24 13:48 06/11/24 11:00 06/11/24 09:49 3 06/11/24 07:54 3 06/11/24 07:02
[2024-06-11] MEDS: ADVANCED PROBIOTIC 625 MG CAPSULE PO SCH (16:45)
[2024-06-12 06:12] LABS: Hematocrit (blood only) 24.2 % (42.0-52.0); Hemoglobin 7.5 g/dl (14.0-18.0); Mean Corpuscular Hemoglobin 31.1 pg (25.0-34.0); Mean Corpuscular Volume 100.4 fL (80.0-100.0); Mean Platelet Volume 9.9 fL (9.4-12.4); Nucleated RBC # (auto) 0.06 K/uL (0.00-0.12); Nucleated RBC % (auto) 0.5 %; Platelet Count 269 K/uL (130-400); RDW Coefficient of Variation 18.9 % (11.5-14.5); RDW Standard Deviation 68.6 fL (36.4-46.3); Red Blood Count 2.41 M/uL (4.70-6.10); White Blood Count 10.98 K/ul (4.8-10.8)
[2024-06-12 06:29] LABS: BUN Creatinine Ratio 9.2 (10-20); Calcium 9.3 mg/dl (8.6-10.3); Creatinine Clr Calc Pharmacy 8.8 ml/min; Potassium 4.1 mmol/L (3.5-5.1)
[2024-06-12 06:31] LABS: INR 1.2 (0.9-1.1); Prothrombin Time 12.9 Seconds (9.0-12.0)
[2024-06-12] MEDS ORDERED: FUROSEMIDE 40 MG/4 ML VIAL IV ONE (10:56)
--- NOTE | 2024-06-12 11:41 | Nephrology Progress Note ---
Date of Service June 12, 2024 Assessment & Plan Admission and Anticipated Discharge Date Admission Date: June 08, 2024 Subjective Assessment & Plan (1) End-stage renal disease on hemodialysis: He was SOB last night and even needed BiPap. Hard to tell how much is fluid related or related with Low hgb and/or Infection. No major electrolyte issues. Dialysis lately complicated by low BP and extreme Fatigue. He is frustrated how he is feeling after dialysis. Still has good bit of residual urine output. has some Crackles and o2 need so will try Diuretics. No iv site so will do tors emide 100 bid and metolazone 5 mg to see if we can get some Diuresis dialysis tomorrow. (2) GI bleed: Severe Anemia with hgb of 5.9 Likely sec to GI bleed. S/p PRBC x 3. EGD done. (3) Symptomatic anemia: S/p PRBC x 3 units so far. hgb still below 8. S---Seen in dialysis. BP was low and we then gave him Midodrine. BP improved a bit. Some SOB. needing O2. AVF fine. Physical Exam Physical Exam: General: no distress, Awake and alert. ENT: mucous membranes moist Neck: supple, no JVD Lungs: no respiratory distress on 1L O2 via NC with O2 sat 100%, diminished breath sounds bilateral bases, slight scattered wheezing CV: RRR, no murmur, trace pretibial edema Abd: normal BS, soft, non-tender Ext: no cyanosis, no calf tenderness Neuro: A&O x 3, no focal deficits noted, normal affect Skin: warm, dry Results & Data Vital Signs (Past 12 Hours) Vital Signs Temp Pulse Pulse Resp BP Pulse Ox O2 Del Method 06/12/24 08:00 89 06/12/24 08:00 Nasal Cannula 06/12/24 07:37 36.5 C 84 20 105/61 96 Nasal Cannula 06/12/24 02:47 36.9 C 88 18 97/58 L 97 Nasal Cannula O2 Flow Rate 06/12/24 08:00 06/12/24 08:00 3 06/12/24 07:37 3 06/12/24 02:47 3.0
[2024-06-12] MEDS ORDERED: FUROSEMIDE 40 MG/4 ML VIAL IV SCH (12:00)
[2024-06-12 12:48] LABS: Hematocrit (blood only) 25.5 % (42.0-52.0)
[2024-06-12] MEDS: TORSEMIDE 100 MG TAB PO SCH (12:48)
[2024-06-12] MEDS: metOLazone 2.5 MG TABLET PO ONE (12:49)
[2024-06-12] MEDS: metOLazone 5 MG TABLET PO ONE (12:49)
--- NOTE | 2024-06-12 16:04 | Hospitalist Progress Note ---
Date of Service June 12, 2024 Assessment & Plan (1) Symptomatic anemia: Plan 78 year old male with PMH of CAD s/p stent, s/p bioprosthetic aortic valve replacement, anticoagulated on warfarin, ESRD on HD, hypertension, hyperlipidemia, bladder cancer presented to ER with c/o progressive weakness. He reported a lot of fatigue and generalized weakness with dialysis sessions recently, shortness of breath with exertion, feeling very weak and lightheaded. Patient denies any new cough, does have some baseline cough. Makes small amount of urine. Denies hematuria/dysuria. Patient reports being constipated for about 5 days before he was able to move bowel 1 day prior to arrival which he reports was black in color, denies seeing any red blood in the stool to me during bedside exam on 06/09. He is being managed for the following: Symptomatic anemia: Likely UGI bleed Patient presents with progressive weakness, admitting hemoglobin of 5.9, FOBT positive. Admitting CTAP reviewed, moderate stool in the rectum noted. Patient received 2 unit PRBC. s/p 3 units PRBC, Hb stable around 8, no BM since AM of 06/10. s/p EGD scope 06/10, erythematous gastric antral mucosa noted and biopsied, f/u path result. Transfuse blood for hemoglobin less than 7 or for symptomatic anemia. Pt tolerating diet well. Labs in AM. Continue to hold ASA/Coumadin. Plan to dc warfarin, appreciate cards recs. GI evaled, appreciates recs. Resume aspirin w/ GI clearance. Constipation: Titrate bowel regimen with a goal of 1-2 bowel movements a day. Follow. Pt refusing bowel regimen, advised to comply to help w/ constipation and hemorrhoids, he laughs it off. Will continue to encourage. Possible atypical pneumonia, volume overload 2/2 incomplete dialysis: CXR with mild opacification of right cardiophrenic angle and is s/o mild volume overload, patient with minimal cough at baseline but denies any sputum. Respiratory BioFire negative. Leukocytosis noted, procalcitonin negative. 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 Wean down O2 as needed. Nephro on board to help w/ HD. Increasing diuresis today due to increased lung crackles. Urinary colonization with Pseudomonas Vs Acute infection: Patient does not have pain and burning while passing urine, 06/09 urinary culture positive for Pseudomonas. Patient w/ low grade fever 06/10, started levaquin 06/11, plan for 7-10 days, add probiotic. continue levaquin. ESRD on dialysis: On MWF schedule. Had HD on the day of arrival but finished session early secondary to weakness. Nephro consult. Aortic valve replacement, history of: History of aortic stenosis status post TAVR in 2019, anticoagulated on warfarin. Cardiology consult for assistance with anticoagulation recommendation appreciated. Elevated troponin: Troponin flat trending 20s, patient with no chest pain. Troponin elevated likely in the setting of chronic kidney disease on ESRD. CAD: Status post stent 2019. Aspirin on hold for now, see above. Continue statin. DVT prophylaxis: SCDs PCU Full Code as per discussion with pt, however reports would not want prolonged intubation if poor prognosis Follows with Dr Maki for routine care Likely dc may after HD. Admission and Anticipated Discharge Date Admission Date: June 08, 2024 Subjective Patient was seen and examined at bedside. Patient was sitting up in bed, on 3 L oxygen via nasal cannula, NAD, resting comfortably. Patient denies any further bowel movement after the last 06/10 morning which was black in color. Pt has ho hemorrhoids, he is refusing bowel regimen, significant time spent on highlighting the importance of bowel regimen, pt seemed uninterested. Patient denies nausea, vomiting, abdominal pain, reports tolerating diet well. Patient's hemoglobin has been holding stable around 8.0. Physical Exam Physical Exam: General: no distress, Obese class II. Head: normocephalic, atraumatic Eyes: conjunctiva non-injected, anicteric ENT: normal inspection external ears, nose, mucous membranes moist Neck: supple, trachea midline Lungs: no respiratory distress on 3L O2 via NC, no wheezing, crackles b/l mid and bases. CV: RRR, no murmur, trace pretibial edema Abd: normal BS, soft, non-tender Ext: no cyanosis, no calf tenderness Neuro: A&O x 3, no focal deficits noted, normal affect Skin: warm, dry Results & Data Results & Data Vital Signs (Past 12 Hours) Vital Signs Temp Pulse Pulse Resp BP Pulse Ox O2 Del Method 06/12/24 15:47 36.7 C 87 18 99/59 L 98 Nasal Cannula 06/12/24 11:39 36.6 C 96 H 18 106/61 91 Nasal Cannula 06/12/24 08:00 89 06/12/24 08:00 Nasal Cannula 06/12/24 07:37 36.5 C 84 20 105/61 96 Nasal Cannula O2 Flow Rate 06/12/24 15:47 3 06/12/24 11:39 3 06/12/24 08:00 06/12/24 08:00 3 06/12/24 07:37 3
[2024-06-12] MEDS: levoFLOXacin/D5W 250 MG/50 ML BAG IV SCH (16:07)
[2024-06-13 08:00] LABS: Hemoglobin 8.7 g/dl (14.0-18.0); Mean Corpuscular Hgb Conc 31.1 g/dL (32.0-36.0); Mean Corpuscular Volume 102.9 fL (80.0-100.0); Mean Platelet Volume 9.5 fL (9.4-12.4); Nucleated RBC # (auto) 0.06 K/uL (0.00-0.12); Nucleated RBC % (auto) 0.5 %; Platelet Count 310 K/uL (130-400); RDW Coefficient of Variation 18.5 % (11.5-14.5); RDW Standard Deviation 67.9 fL (36.4-46.3); Red Blood Count 2.72 M/uL (4.70-6.10); White Blood Count 11.62 K/ul (4.8-10.8)
[2024-06-13 08:21] LABS: Calcium 9.9 mg/dl (8.6-10.3); Creatinine Clr Calc Pharmacy 7.3 ml/min; Potassium 4.2 mmol/L (3.5-5.1)
[2024-06-13 08:24] LABS: INR 1.2 (0.9-1.1); Prothrombin Time 12.4 Seconds (9.0-12.0)
[2024-06-13] MEDS: EPOETIN ALFA 20,000 UNITS/ML VIAL IV ONE (09:19)
[2024-06-13] MEDS: MIDODRINE HCL 10 MG TAB PO STA (09:19)
--- NOTE | 2024-06-13 11:06 | Dialysis Progress Note ---
Date of Service June 13, 2024 Assessment & Plan (1) End-stage renal disease on hemodialysis: Plan: ongoing hypoxia (no daytime 02 normally); CXR 06/10 w/ plm edema ; no major electrolyte issues. Dialysis lately complicated by low BP and extreme Fatigue. He is frustrated how he is feeling after dialysis. Still has significant residual urine output > about 500-700 mL daily on high dose diuretics > HD today 3.5 hrs only and goal 2.5L fluid off >> >>given ongonig hypoxia will attempt to run him tomorrow as well for another 2L >ensure at d/c he goes out on torsemide at higher dose on non HD days only; may need midodrine w/ HD (2) GI bleed: Plan: Severe Anemia with hgb of 5.9 Likely sec to GI bleed. S/p PRBC x 3 total so far gastric antrum red > path pending (3) Symptomatic anemia: Plan: s/p transfusions as above hold KORY w/ path pending; have recently discussed risks/benefits of KORY in pt w/ h/o bladder CA under periodic cysto surveillance > he was agreeable to KORY Admission and Anticipated Discharge Date Admission Date: June 08, 2024 Subjective seen and evaluated this AM on HD; still quite tired; and 02 dependent; BP 94/50 prior to midodrine for tx; surprised at abmount he voids w/ torsemide Review of Systems 2 Review of Systems: All systems reviewed & are unremarkable except as noted in Subjective Physical Exam 2 Constitutional: well developed and well nourished tired on 02NC 3.5L Eyes: EOM intact bilaterally ENMT: Mouth: + dry oral mucous membranes Respiratory: normal respiratory effort Auscultation: + diminished lung sounds Cardiovascular: Rate/Rhythm: regular rate and regular rhythm Extremities: + edema (trace) and + AV fistula Gastrointestinal (Abdomen): Inspection/Auscultation: normal bowel sounds P ercussion/Palpation: abdomen soft; abdomen nontender Musculoskeletal: Extremities: strength 5/5 throughout Skin: no rashes, warm and dry Neurologic: ford, fluent speech, no tremor Results & Data Vital Signs (Past 12 Hours) Vital Signs Temp Pulse Pulse Pulse Resp BP BP 06/13/24 10:00 79 86/47 L 06/13/24 09:30 82 99/53 L 06/13/24 09:02 85 99/56 L 06/13/24 08:51 36.4 C L 84 06/13/24 08:18 36.6 C 83 18 101/63 06/13/24 07:59 06/13/24 07:02 87 06/13/24 03:56 36.5 C 87 18 100/60 06/12/24 23:06 36.6 C 86 20 102/62 Pulse Ox O2 Del Method O2 Flow Rate 06/13/24 10:00 06/13/24 09:30 06/13/24 09:02 06/13/24 08:51 06/13/24 08:18 95 Nasal Cannula 3 06/13/24 07:59 Nasal Cannula 06/13/24 07:02 06/13/24 03:56 96 Nasal Cannula 3.5 06/12/24 23:06 96 Nasal Cannula 3.5 Laboratory Results 06/13/24 07:45 06/13/24 07:45
--- NOTE | 2024-06-13 15:40 | Hospitalist Progress Note ---
Date of Service June 13, 2024 Assessment & Plan (1) Symptomatic anemia: Plan 78 year old male with PMH of CAD s/p stent, s/p bioprosthetic aortic valve replacement, anticoagulated on warfarin, ESRD on HD, hypertension, hyperlipidemia, bladder cancer presented to ER with c/o progressive weakness. He reported a lot of fatigue and generalized weakness with dialysis sessions recently, shortness of breath with exertion, feeling very weak and lightheaded. Patient denies any new cough, does have some baseline cough. Makes small amount of urine. Denies hematuria/dysuria. Patient reports being constipated for about 5 days before he was able to move bowel 1 day prior to arrival which he reports was black in color, denies seeing any red blood in the stool to me during bedside exam on 06/09. He is being managed for the following: Symptomatic anemia: Likely UGI bleed Acute blood loss anemia: likely 2/2 above Patient presents with progressive weakness, admitting hemoglobin of 5.9, FOBT positive. Admitting CTAP reviewed, moderate stool in the rectum noted. Patient received 2 unit PRBC. s/p 3 units PRBC, Hb stable around 8, last BM per pt 06/12, black in color. s/p EGD scope 06/10, erythematous gastric antral mucosa noted and biopsied, f/u path result. Transfuse blood for hemoglobin less than 7 or for symptomatic anemia. Pt tolerating diet well. Labs in AM. Continue to hold ASA/Coumadin. Plan to dc warfarin, appreciate cards recs. GI evaled, appreciates recs. Resume aspirin w/ GI clearance. Constipation: Titrate bowel regimen with a goal of 1-2 bowel movements a day. Follow. Pt refusing bowel regimen, when advised to comply to help w/ constipation and hemorrhoids, he laughs it off. Will continue to encourage. Possible atypical pneumonia, volume overload 2/2 incomplete dialysis: CXR with mild opacification of right cardiophrenic angle and is s/o mild volume overload, patient with minimal cough at baseline but denies any sputum. Respiratory BioFire negative. Leukocytosis noted, procalcitonin negative. Wheezing was noted on exam at presentation, could be d/t volume overload 2/2 incomplete dialysis [employer]INTING [employer]. Continue with doxycycline 06/09 (now changed to levaquin 06/11, see below). Wean down O2 as needed. Nephro on board to help w/ HD. Diuresis has been increased, d/w nephro , plan for further HD may to help w/ pul edema. Urinary colonization with Pseudomonas Vs Acute infection, likely acute UTI : Patient does not have pain and burning while passing urine, 06/09 urinary culture positive for Pseudomonas. Patient w/ low grade fever 06/10, started levaquin 06/11, plan for 7-10 days, c/w probiotic. continue levaquin. ESRD on dialysis: On MWF schedule. Had HD on the day of arrival but finished session early secondary to weakness. Nephro consult. Aortic valve replacement, history of: History of aortic stenosis status post TAVR in 2019, anticoagulated on warfarin. Cardiology consult for assistance with anticoagulation recommendation appreciated. Elevated troponin: Troponin flat trending 20s, patient with no chest pain. Troponin elevated likely in the setting of chronic kidney disease on ESRD, likely not demand ischemia. CAD: Status post stent 2019. Aspirin on hold for now, see above. Continue statin. DVT prophylaxis: SCDs PCU Full Code as per discussion with pt, however reports would not want prolonged intubation if poor prognosis Follows with Dr Maki for routine care Likely dc may after HD. Admission and Anticipated Discharge Date Admission Date: June 08, 2024 Subjective Patient was seen and examined at bedside. Patient was lying in bed, getting HD, on 3 L oxygen via nasal cannula, NAD, resting comfortably. Patient reports 1 BM yesterday, black in color. Pt has ho hemorrhoids, he is refusing bowel regimen. Patient denies nausea, vomiting, abdominal pain, reports tolerating diet well. Patient's hemoglobin has been holding stable around 8.0. Physical Exam Physical Exam: General: no distress, Obese class II. Head: normocephalic, atraumatic Eyes: conjunctiva non-injected, anicteric ENT: normal inspection external ears, nose, mucous membranes moist Neck: supple, trachea midline Lungs: no respiratory distress on 3L O2 via NC, no wheezing, crackles b/l mid and bases. CV: RRR, no murmur, trace pretibial edema Abd: normal BS, soft, non-tender Ext: no cyanosis, no calf tenderness Neuro: A&O x 3, no focal deficits noted, normal affect Skin: warm, dry Results & Data Results & Data Vital Signs (Past 12 Hours) Vital Signs Temp Pulse Pulse Pulse Resp BP BP 06/13/24 13:52 83 06/13/24 13:13 36.5 C 82 16 106/61 06/13/24 12:35 36.5 C 78 105/50 L 06/13/24 12:30 79 101/55 L 06/13/24 12:00 75 100/51 L 06/13/24 11:30 79 94/53 L 06/13/24 11:00 76 103/53 L 06/13/24 10:30 78 92/50 L 06/13/24 10:00 79 86/47 L 06/13/24 09:30 82 99/53 L 06/13/24 09:02 85 99/56 L 06/13/24 08:51 36.4 C L 84 06/13/24 08:18 36.6 C 83 18 101/63 06/13/24 07:59 06/13/24 07:02 87 06/13/24 03:56 36.5 C 87 18 100/60 Pulse Ox O2 Del Method O2 Flow Rate 06/13/24 13:52 06/13/24 13:13 97 Nasal Cannula 3 06/13/24 12:35 06/13/24 12:30 06/13/24 12:00 06/13/24 11:30 06/13/24 11:00 06/13/24 10:30 06/13/24 10:00 06/13/24 09:30 06/13/24 09:02 06/13/24 08:51 06/13/24 08:18 95 Nasal Cannula 3 06/13/24 07:59 Nasal Cannula 06/13/24 07:02 06/13/24 03:56 96 Nasal Cannula 3.5
--- NOTE | 2024-06-13 20:52 | Communication Note ---
Date of Service: June 13, 2024 8:45 PM Patient with transient bradycardia, heart rate 40s. 2:1 AV block on the monitor as per RN. Patient asymptomatic as per RN. Earlier episode today as per report AP Second degree AV block, Mobitz type II Notify cardio service in a.m. N.p.o. after midnight until seen by service
[2024-06-13] MEDS ORDERED: ATROPINE SULFATE 0.1 MG/ML 10ML SYR IV PRN (20:53)
[2024-06-13 21:33] LABS: Magnesium 2.3 mg/dl (1.7-2.4)
[2024-06-13 21:50] LABS: Thyroid Stimulating Hormone 1.013 uIu/ml (0.300-4.500)
--- NOTE | 2024-06-14 08:25 | XRay Report ---
EXAM: XR chest 1V portable CLINICAL HISTORY: FOLLOW UP PUL EDEMA. TECHNIQUE: An X-ray image of the chest is obtained in AP projection. COMPARISON: 06/06/2024. FINDINGS: Pulmonary Parenchyma: Bilateral mid and lower zones airspace opacification/opacities. Raised right hemidiaphragm with blunting of CP angle. Minimal pleural reaction left costophrenic recess. Heart and Mediastinum: Cardiac shadow is enlarged in size with bilateral hilar congestion. No mediastinal widening or masses. No hilar or mediastinal lymphadenopathy. Bony Thorax: Bony thorax appears intact without fractures or deformities. Soft Tissues: Soft tissues overlying the chest wall are unremarkable. IMPRESSION: 1. Interval progression of right lower zone opacities with mild pleural reaction causing the blunting of costophrenic recess suggestive of mild pleural effusion. 2. Interval regression left lower lung opacities with interval regression in the opacification of left lower zone. 3. Cardiomegaly with bilateral hilar congestion. Comparing the previous x-ray dated 06/06/2024 there is interval regression in the left lower zone opacification with interval progression of findings in the right lung. Electronically signed by Min Gallegos 06-14-2024 08:24 AM
[2024-06-14 09:01] LABS: Hematocrit (blood only) 26.4 % (42.0-52.0); Hemoglobin 8.2 g/dl (14.0-18.0); Mean Corpuscular Hemoglobin 31.4 pg (25.0-34.0); Mean Corpuscular Hgb Conc 31.1 g/dL (32.0-36.0); Mean Corpuscular Volume 101.1 fL (80.0-100.0); Mean Platelet Volume 9.5 fL (9.4-12.4); Nucleated RBC # (auto) 0.04 K/uL (0.00-0.12); Nucleated RBC % (auto) 0.4 %; Platelet Count 296 K/uL (130-400); RDW Coefficient of Variation 18.4 % (11.5-14.5); RDW Standard Deviation 67.5 fL (36.4-46.3); Red Blood Count 2.61 M/uL (4.70-6.10); White Blood Count 9.25 K/ul (4.8-10.8)
[2024-06-14] MEDS: MIDODRINE HCL 10 MG TAB PO ONE (09:03)
[2024-06-14 09:17] LABS: BUN Creatinine Ratio 7.9 (10-20); Calcium 10.1 mg/dl (8.6-10.3); Creatinine Clr Calc Pharmacy 9.1 ml/min; Magnesium 2.1 mg/dl (1.7-2.4); Phosphorus 7.3 mg/dl (2.5-4.9); Potassium 3.8 mmol/L (3.5-5.1)
[2024-06-14 09:21] LABS: INR 1.2 (0.9-1.1); Prothrombin Time 12.8 Seconds (9.0-12.0)
[2024-06-14] MEDS: EPOETIN ALFA 20,000 UNITS/ML VIAL IV ONE (11:51)
--- NOTE | 2024-06-14 12:01 | Dialysis Progress Note ---
Date of Service June 14, 2024 Assessment & Plan (1) End-stage renal disease on hemodialysis: Plan: ongoing hypoxia (no daytime 02 normally); CXR 06/10 w/ plm edema ; no major electrolyte issues. Dialysis lately complicated by low BP and extreme Fatigue. He is frustrated how he is feeling after dialysis. Still has significant residual urine output > about 500-700 mL daily or more on high dose diuretics > HD today 2 hrs and goal 2L fluid off >> >>plan HD tomorrow per routine as OP or IP depending on cardiology recs >ensure at d/c he goes out on torsemide 100 mg bid on non HD days only; suggest 5 mg midodrine prior to HD 30 min >orders in for tomorrow in case he's here. care coordinated w/ Dr Loving regarding midodrine, torsemide dosing, dialysis plan , parathryoidectomy recs via [employer]; we are in agreement. (2) GI bleed: Plan: Severe Anemia with hgb of 5.9 Likely sec to GI bleed. S/p PRBC x 3 total so far gastric antrum red > path pending (3) Symptomatic anemia: Plan: s/p transfusions as above; path form gastric antrum still pending >will give epo 20K units today w/ HD; have recently discussed risks/benefits of KORY in pt w/ h/o bladder CA under periodic cysto surveillance > he is agreeable to KORY (4) 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: Plan: has parathyroidectomy scheduled for 2/3 >> given current clinical issues w/ new hypoxia and now w/ heart block concerns suggest contacting surgeon Dr Arash Salter E[facility] and defer Admission and Anticipated Discharge Date Admission Date: June 08, 2024 Subjective seen and evaluated on dialysis; had 2 episodes of heart block overnight, asymptomatic; cardiology to evaluate; wondering if he should proceed w/ parathyroidectomy scheduled 23. breathing still short; still fatigued/ generalized weakness. Review of Systems 2 Review of Systems: All systems reviewed & are unremarkable except as noted in Subjective Physical Exam 2 Constitutional: well developed, well nourished and cooperative; no acute distress Eyes: EOM intact bilaterally ENMT: Mouth: + dry oral mucous membranes Respiratory: normal respiratory effort Auscultation: + diminished lung sounds Cardiovascular: Rate/Rhythm: regular rate and regular rhythm Extremities: + edema (trace) and + AV fistula Gastrointestinal (Abdomen): Inspection/Auscultation: normal bowel sounds P ercussion/Palpation: abdomen soft; abdomen nontender Musculoskeletal: Extremities: strength 5/5 throughout Skin: no rashes, warm and dry Neurologic: A&0 x 3 fluent speech, no tremor Results & Data Vital Signs (Past 12 Hours) Vital Signs Temp Pulse Pulse Pulse Resp BP BP 06/14/24 11:30 78 93/47 L 06/14/24 11:00 79 99/53 L 06/14/24 10:30 78 100/53 L 06/14/24 10:00 79 99/54 L 06/14/24 09:56 76 97/55 L 06/14/24 09:51 36.7 C 79 06/14/24 08:00 87 06/14/24 08:00 06/14/24 07:38 36.7 C 87 18 96/61 L 06/14/24 02:28 36.7 C 90 18 103/64 Pulse Ox O2 Del Method O2 Flow Rate 06/14/24 11:30 06/14/24 11:00 06/14/24 10:30 06/14/24 10:00 06/14/24 09:56 06/14/24 09:51 06/14/24 08:00 06/14/24 08:00 Nasal Cannula 3 06/14/24 07:38 94 Nasal Cannula 3 06/14/24 02:28 95 Nasal Cannula Diagnostic Findings 06/14/24 08:34 06/14/24 08:34
--- NOTE | 2024-06-14 12:53 | Electrocardiogram Report ---
Test Reason : Blood Pressure : */* mmHG Vent. Rate : 82 BPM Atrial Rate : 82 BPM P-R Int : 206 ms QRS Dur : 152 ms QT Int : 396 ms P-R-T Axes : 15 86 -29 degrees QTcB Int : 462 ms Sinus rhythm with Fusion complexes Possible Left atrial enlargement Right bundle branch block Inferior infarct , age undetermined Abnormal ECG When compared with ECG of 08-Jun-2024 16:30, Significant changes have occurred Confirmed by Christopher Lyons ([id number]) on 06/14/2024 12:53:06 PM Referred By: REFERRED SELF Confirmed By: Christopher Lyons
--- NOTE | 2024-06-14 14:25 | Hospitalist Progress Note ---
Date of Service June 14, 2024 Assessment & Plan (1) Symptomatic anemia: Plan 78 year old male with PMH of CAD s/p stent, s/p bioprosthetic aortic valve replacement, anticoagulated on warfarin, ESRD on HD, hypertension, hyperlipidemia, bladder cancer presented to ER with c/o progressive weakness. He reported a lot of fatigue and generalized weakness with dialysis sessions recently, shortness of breath with exertion, feeling very weak and lightheaded. Patient denies any new cough, does have some baseline cough. Makes small amount of urine. Denies hematuria/dysuria. Patient reports being constipated for about 5 days before he was able to move bowel 1 day prior to arrival which he reports was black in color, denies seeing any red blood in the stool to me during bedside exam on 06/09. He is being managed for the following: Symptomatic anemia: Likely UGI bleed Acute blood loss anemia: likely 2/2 above Patient presents with progressive weakness, admitting hemoglobin of 5.9, FOBT positive. Admitting CTAP reviewed, moderate stool in the rectum noted. Patient received 2 unit PRBC. s/p 3 units PRBC s/p EGD scope 06/10, erythematous gastric antral mucosa noted and biopsied, f/u path result. Transfuse blood for hemoglobin less than 7 or for symptomatic anemia. Hb stable around 8. HnH daily or prn, pt reports stool color getting less darker, last BM 06/13. Continue to hold ASA/Coumadin. Plan to dc warfarin, appreciate cards recs. GI evaled, appreciates recs. Resume aspirin w/ GI clearance. 2:1 Mobitz II heart block: noted 06/13-06/14 overnight. d/w cardio, npo midnight, plan to re-eval in am. c/w tele monitoring. monitor electrolytes. Constipation: Titrate bowel regimen with a goal of 1-2 bowel movements a day. Follow. Pt refusing bowel regimen, when advised to comply to help w/ constipation and hemorrhoids, he laughs it off. Will continue to encourage. Possible atypical pneumonia, volume overload 2/2 incomplete dialysis: CXR with mild opacification of right cardiophrenic angle and is s/o mild volume overload, patient with minimal cough at baseline but denies any sputum. Respiratory BioFire negative. Leukocytosis noted, procalcitonin negative. Wheezing was noted on exam at presentation, could be d/t volume overload 2/2 incomplete dialysis [employer]. Continue with doxycycline 06/09 (now changed to levaquin 06/11, see below). Wean down O2 as needed. Nephro on board to help w/ HD. Diuresis has been increased, d/w nephro , plan for further HD may to help w/ pul edema. Urinary colonization with Pseudomonas Vs Acute infection, likely acute UTI : Patient does not have pain and burning while passing urine, 06/09 urinary culture positive for Pseudomonas. Patient w/ low grade fever 06/10, started levaquin 06/11, plan for 7-10 days, c/w probiotic. continue levaquin. ESRD on dialysis: On MWF schedule. Had HD on the day of arrival but finished session early secondary to weakness. Nephro consult. Aortic valve replacement, history of: History of aortic stenosis status post TAVR in 2019, anticoagulated on warfarin. Cardiology consult for assistance with anticoagulation recommendation appreciated. Elevated troponin: Troponin flat trending 20s, patient with no chest pain. Troponin elevated likely in the setting of chronic kidney disease on ESRD, likely not demand ischemia. CAD: Status post stent 2019. Aspirin on hold for now, see above. Continue statin. DVT prophylaxis: SCDs PCU Full Code as per discussion with pt, however reports would not want prolonged intubation if poor prognosis Follows with Dr Maki for routine care Dispo: awaiting cards eval. Pt updated over the phone 06/14 Dr. Bartolome Salter reached out via TT to provide courtesy update on patient as pt has parathyroidectomy on Jun 20. Await reply. Admission and Anticipated Discharge Date Admission Date: June 08, 2024 Subjective Patient was seen and examined at bedside. Patient was lying in bed, getting HD, on 3 L oxygen via nasal cannula, NAD, resting comfortably. Patient reports 1 BM yesterday, black in color. Reports stool color getting progressively less darker Pt has ho hemorrhoids, he is refusing bowel regimen. Encouraged him to utilize bowel regimen. Patient denies nausea, vomiting, abdominal pain, reports tolerating diet well. He is still needing O2 and is congested. Patient's hemoglobin has been holding stable around 8.0. ON he had Type II HB, no symptoms, d/w cardio, plan for NPO midnight for further eval in AM. Physical Exam Physical Exam: General: no distress, Obese class II. Head: normocephalic, atraumatic Eyes: conjunctiva non-injected, anicteric ENT: normal inspection external ears, nose, mucous membranes moist Neck: supple, trachea midline Lungs: no respiratory distress on 3L O2 via NC, no wheezing, crackles b/l mid and bases - gradually improving. CV: RRR, no murmur, trace pretibial edema Abd: normal BS, soft, non-tender Ext: no cyanosis, no calf tenderness Neuro: A&O x 3, no focal deficits noted, normal affect Skin: warm, dry Results & Data Results & Data Vital Signs (Past 12 Hours) Vital Signs Temp Pulse Pulse Pulse Resp BP BP 06/14/24 13:08 36.5 C 77 16 100/47 L 06/14/24 12:41 36.5 C 77 96/49 L 06/14/24 12:00 80 92/48 L 06/14/24 11:30 78 93/47 L 06/14/24 11:00 79 99/53 L 06/14/24 10:30 78 100/53 L 06/14/24 10:00 79 99/54 L 06/14/24 09:56 76 97/55 L 06/14/24 09:51 36.7 C 79 06/14/24 08:00 87 06/14/24 08:00 06/14/24 07:38 36.7 C 87 18 96/61 L 06/14/24 02:28 36.7 C 90 18 103/64 Pulse Ox O2 Del Method O2 Flow Rate 06/14/24 13:08 97 Nasal Cannula 3 06/14/24 12:41 06/14/24 12:00 06/14/24 11:30 06/14/24 11:00 06/14/24 10:30 06/14/24 10:00 06/14/24 09:56 06/14/24 09:51 06/14/24 08:00 06/14/24 08:00 Nasal Cannula 3 06/14/24 07:38 94 Nasal Cannula 3 06/14/24 02:28 95 Nasal Cannula
--- NOTE | 2024-06-14 16:08 | Cardiology Progress Note ---
Date of Service June 14, 2024 Assessment & Plan (1) Second degree AV block: Plan: * Patient with history of transient bradycardia in the 40s noted at outpatient dialysis sessions. * Baseline conduction system disease noted with outpatient EKG dated 05/10/2024 revealing sinus rhythm at 88 bpm with right bundle branch block, left anterior fascicular block pattern. * Zio patch worn for 8 days, 21 hours in April, revealing predominant rhythm of sinus rhythm with rate in the 90s with frequent premature ventricular contractions including ventricular bigeminy, PVC burden 4.7%. * Based on the Zio patch monitor, it was felt that the transient hearts in the 40s noted at dialysis were likely due to ventricular bigeminy, but now last evening on 06/13/2024 patient noted to have intermittent 2: 1 AV block with ventricular rate in the 40s. No associated symptoms. This occurred again between 12:50 PM and 1 PM today 06/14/2024. * Patient without symptoms, but given his underlying conduction system disease, he is certainly at risk for progression of his conduction system issues. Is noted that he has an upcoming parathyroidectomy surgery scheduled at [facility] next week on June 21, 2024 * Advance diet for now. Keep n.p.o. after midnight. If symptoms develop or worsening high-grade AV block, will consider pacemaker tomorrow. Will review case with EP. (2) Symptomatic anemia: Plan: * EGD performed 06/10/2024, patient felt to have changes in the antrum that could be consistent with GAVE (gastric antral vascular ectasia). * Presenting Hgb of 5.9 g/dl now improved to 8.2 g/dl. * Patient received 3 units of packed red blood cells as well as vitamin K this admission. * He is now off of aspirin and Coumadin (3) GI bleed: Plan: * As noted (4) History of transcatheter aortic valve replacement (TAVR): Plan: * TAVR procedure took place in 2019. Noted elevated transvalvular velocities on outpatient echocardiogram likely due to hyperdynamic left ventricular systolic function although prosthetic stenosis not excluded. Due to concerns of prosthetic thrombosis as a potential cause of accelerated velocities through the prosthesis, Coumadin started 10/21/2023, but this has not improved the velocities and therefore especially in the setting of anemia, feel it is prudent to discontinue Coumadin and remain off of it. (5) CAD (coronary artery disease): Plan: * Acceptable to hold ASA for now. He does have a history of CAD s/p stent to the LCx in 2019. Ideally would resume ASA in near future. Continue statin. Plan Admission and Anticipated Discharge Date Admission Date: June 08, 2024 Subjective Patient seen in cardiology follow up. Had HD session this am. Feeling well with exception of generalized fatigue which he had discussed during recent outpatient visit. Physical Exam Constitutional: WD/WN, vitals as above no acute distress Neck: trachea midline, no thyromegaly Respiratory: no labored breathing Auscultation: + diminished lung sounds Cardiovascular: Rate/Rhythm: regular rate and regular rhythm Heart Sounds: + murmur (II/ systolic murmur LSB) Gastrointestinal (Abdomen): normal bowel sounds, soft, nontender, no hepatosplenomegaly Musculoskeletal: no cyanosis or clubbing, extremities motor strength 5/5 Neurologic: PERRL, EOMI, accommodation nl, no face palsy, no dysarthria Results & Data Vital Signs (Past 12 Hours) Vital Signs Temp Pulse Pulse Pulse Resp BP BP 06/14/24 13:08 36.5 C 77 16 100/47 L 06/14/24 12:41 36.5 C 77 96/49 L 06/14/24 12:00 80 92/48 L 06/14/24 11:30 78 93/47 L 06/14/24 11:00 79 99/53 L 06/14/24 10:30 78 100/53 L 06/14/24 10:00 79 99/54 L 06/14/24 09:56 76 97/55 L 06/14/24 09:51 36.7 C 79 06/14/24 08:00 87 06/14/24 08:00 06/14/24 07:38 36.7 C 87 18 96/61 L Pulse Ox O2 Del Method O2 Flow Rate 06/14/24 13:08 97 Nasal Cannula 3 06/14/24 12:41 06/14/24 12:00 06/14/24 11:30 06/14/24 11:00 06/14/24 10:30 06/14/24 10:00 06/14/24 09:56 06/14/24 09:51 06/14/24 08:00 06/14/24 08:00 Nasal Cannula 3 06/14/24 07:38 94 Nasal Cannula 3
[2024-06-15 07:24] LABS: Hematocrit (blood only) 27.7 % (42.0-52.0); Hemoglobin 8.5 g/dl (14.0-18.0); Mean Corpuscular Hemoglobin 30.8 pg (25.0-34.0); Mean Corpuscular Hgb Conc 30.7 g/dL (32.0-36.0); Mean Corpuscular Volume 100.4 fL (80.0-100.0); Mean Platelet Volume 9.5 fL (9.4-12.4); Nucleated RBC # (auto) 0.16 K/uL (0.00-0.12); Nucleated RBC % (auto) 1.7 %; Platelet Count 266 K/uL (130-400); RDW Coefficient of Variation 18.6 % (11.5-14.5); RDW Standard Deviation 67.8 fL (36.4-46.3); Red Blood Count 2.76 M/uL (4.70-6.10); White Blood Count 9.46 K/ul (4.8-10.8)
[2024-06-15 07:46] LABS: BUN Creatinine Ratio 7.5 (10-20); Creatinine Clr Calc Pharmacy 9.5 ml/min; Potassium 3.9 mmol/L (3.5-5.1)
[2024-06-15] MEDS: MIDODRINE HCL 2.5 MG TAB PO SCH (07:56)
--- NOTE | 2024-06-15 09:25 | Dialysis Progress Note ---
Date of Service June 15, 2024 Assessment & Plan (1) End-stage renal disease on hemodialysis: Plan: ongoing hypoxia (no daytime 02 normally); CXR 06/10 w/ plm edema ; no major electrolyte issues. Dialysis lately complicated by low BP and extreme Fatigue. He is frustrated how he is feeling after dialysis and at other issues coming up this admission. Still has significant residual urine output > about 500-700 mL daily or more on high dose diuretics > HD today 3.75 and aggressive goal 3.5L fluid off >> as tolerated >>next HD 06/17 per routine as OP or IP depending on cardiology recs >ensure at d/c he goes out on torsemide 100 mg bid on non HD days only; continue 5 mg midodrine prior to HD 30 min (2) GI bleed: Plan: Severe Anemia with hgb of 5.9 Likely sec to GI bleed. S/p PRBC x 3 total so far; hgb 8.5 today gastric antrum red > path pending (3) Symptomatic anemia: Plan: s/p transfusions as above; path form gastric antrum still pending >will give epo 20K units again today w/ HD (4) 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: Plan: has parathyroidectomy scheduled for 2/3 >> given current clinical issues w/ new hypoxia and now w/ heart block concerns suggest hospitalist contact surgeon Dr Arash Salter [facility] and defer Admission and Anticipated Discharge Date Admission Date: June 08, 2024 Subjective seen and evaluated on dialysis; no further HB episodes ON; had 2 events day before. some frustration about his health situation Review of Systems 2 Review of Systems: All systems reviewed & are unremarkable except as noted in Subjective Physical Exam 2 Constitutional: well developed, well nourished and cooperative; no acute distress (on 3L 02NC) Eyes: EOM intact bilaterally ENMT: Mouth: + dry oral mucous membranes Respiratory: normal respiratory effort Auscultation: + diminished lung sounds Cardiovascular: Rate/Rhythm: regular rate and regular rhythm Extremities: + AV fistula; no edema Gastrointestinal (Abdomen): Inspection/Auscultation: normal bowel sounds P ercussion/Palpation: abdomen soft; abdomen nontender Musculoskeletal: Extremities: strength 5/5 throughout Skin: no rashes, warm and dry Results & Data Vital Signs (Past 12 Hours) Vital Signs Temp Pulse Pulse Resp BP Pulse Ox O2 Del Method 01/29/25 08:08 Nasal Cannula 06/15/24 07:48 36.7 C 83 18 95/52 L 92 Nasal Cannula 06/15/24 06:54 89 06/15/24 03:43 36.4 C L 89 18 93/56 L 96 Room Air 06/14/24 23:23 37.3 C 92 H 18 98/57 L 94 Nasal Cannula 06/14/24 21:45 102 H O2 Flow Rate 06/15/24 08:08 3 06/15/24 07:48 3 06/15/24 06:54 06/15/24 03:43 06/14/24 23:23 2.0 06/14/24 21:45 Laboratory Results 06/15/24 06:55 06/15/24 06:55
--- NOTE | 2024-06-15 10:30 | Electrocardiogram Report ---
Test Reason : Blood Pressure : */* mmHG Vent. Rate : 87 BPM Atrial Rate : 87 BPM P-R Int : 212 ms QRS Dur : 150 ms QT Int : 404 ms P-R-T Axes : 43 -65 88 degrees QTcB Int : 486 ms Sinus rhythm with 1st degree A-V block with Fusion complexes Right bundle branch block Left anterior fascicular block Bifascicular block Left ventricular hypertrophy with repolarization abnormality ( R in aVL ) When compared with ECG of 14-Jun-2024 08:16, No significant change Confirmed by Christopher Lyons ([id number]) on 06/15/2024 10:30:26 AM Referred By: REFERRED SELF Confirmed By: Christopher Lyons
[2024-06-15] MEDS: EPOETIN ALFA 20,000 UNITS/ML VIAL IV ONE (12:27)
--- NOTE | 2024-06-15 13:13 | Cardiology Progress Note ---
Date of Service June 15, 2024 Assessment & Plan (1) Second degree AV block: Plan: * Underlying conduction disease with right bundle branch block, left anterior fascicular block * History of frequent PVCs, however, diagnosed with intermittent 2:1 AV block with ventricular rate in the 40s. No associated symptoms. Occurred again between 12:50 PM and 1 PM 06/14/2024 and 230- 3AM 06/15/2024. * Asymptomatic however, at risk for progression of his conduction disease. * Keep patient n.p.o., will discuss possible pacemaker implantation with electrophysiology today. (2) Symptomatic anemia: Plan: * EGD performed 06/10/2024, patient felt to have changes in the antrum that could be consistent with GAVE (gastric antral vascular ectasia). * Presenting Hgb of 5.9 g/dl now improved to 8.2 g/dl. * Patient received 3 units of packed red blood cells as well as vitamin K this admission. * Currently off of aspirin and Coumadin (3) GI bleed: Plan: * As noted (4) History of transcatheter aortic valve replacement (TAVR): Plan: * TAVR procedure took place in 2019. Noted elevated transvalvular velocities on outpatient echocardiogram likely due to hyperdynamic left ventricular systolic function although prosthetic stenosis not excluded. Due to concerns of prosthetic thrombosis as a potential cause of accelerated velocities through the prosthesis, Coumadin started 10/21/2023, but this has not improved the velocities and therefore especially in the setting of anemia, patient will remain off anticoagulation at this time. (5) CAD (coronary artery disease): Plan: * Acceptable to hold ASA for now. He does have a history of CAD s/p stent to the LCx in 2019. Ideally would resume ASA in near future. Continue statin. Plan Admission and Anticipated Discharge Date Admission Date: June 08, 2024 Subjective Patient seen examined the bedside on hemodialysis. Telemetry revealing sinus rhythm, bundle branch block, PVCs, as well as occasional 2-1 AV block. Most recent episode of 2-1 AV block occurred at approximately 3 AM without associated symptoms. No recurrent AV block on hemodialysis currently. Patient denies syncope or near syncope. Occasional lightheadedness reported prior to admission. Voices concern regarding risks of pacemaker implantation as well as upcoming parathyroid surgery. Review of Systems Review of Systems: All systems reviewed & are unremarkable except as noted in Subjective Physical Exam Constitutional: well nourished; no acute distress Respiratory: no respiratory distress, no labored breathing and no retractions Auscultation: no crackles, no rales, no rhonchi and no wheezes Cardiovascular: Rate/Rhythm: regular rate and regular rhythm Heart Sounds: normal S1, normal S2 and + murmur (2/6 systolic ejection murmur) Gastrointestinal (Abdomen): Inspection/Auscultation: abdomen normal to in spection and normal bowel sounds; abdomen not distended Percussion/Palpation: abdomen soft; abdomen nontender, no guarding and abdomen not rigid Neurologic: CN's II-XI intact bilaterally and moves all extremities Results & Data Vital Signs (Past 12 Hours) Vital Signs Temp Pulse Pulse Pulse Resp BP BP 06/15/24 12:30 85 87/54 L 06/15/24 12:00 84 88/45 L 06/15/24 11:30 84 84/44 L 06/15/24 11:00 82 85/46 L 06/15/24 10:30 81 84/44 L 06/15/24 10:00 78 88/52 L 06/15/24 09:30 76 101/58 L 06/15/24 09:14 79 98/52 L 06/15/24 09:07 36.5 C 81 06/15/24 08:08 06/15/24 07:48 36.7 C 83 18 95/52 L 06/15/24 06:54 89 06/15/24 03:43 36.4 C L 89 18 93/56 L Pulse Ox O2 Del Method O2 Flow Rate 06/15/24 12:30 06/15/24 12:00 06/15/24 11:30 06/15/24 11:00 06/15/24 10:30 06/15/24 10:00 06/15/24 09:30 06/15/24 09:14 06/15/24 09:07 06/15/24 08:08 Nasal Cannula 3 06/15/24 07:48 92 Nasal Cannula 3 06/15/24 06:54 06/15/24 03:43 96 Room Air Laboratory Results CBC 06/15/24 Range/Units 06:55 WBC 9.46 (4.8-10.8) K/ul RBC 2.76 L (4.70-6.10) M/uL Hgb 8.5 L (14.0-18.0) g/dl Hct 27.7 L (42.0-52.0) % Plt Count 266 (130-400) K/uL Comprehensive Metabolic Panel 06/15/24 Range/Units 06:55 Sodium 142 (136-145) mmol/L Potassium 3.9 (3.5-5.1) mmol/L Chloride 104 (98-107) mmol/L Carbon Dioxide 28 (21-32) mmol/L BUN 51 H (6-23) mg/dl Creatinine 6.80 H* D (0.6-1.4) mg/dl Glucose 141 H (70-99(Fasting)) mg/dl Calcium 10.0 (8.6-10.3) mg/dl Intake and Output 06/14/24 06/15/24 06/15/24 22:59 06:59 14:59 Intake Total 150 / 150 Output Total 376 / 376 Balance -226 / -226 Intake: IV 50 / 50 levoFLOXacin/D5W 250 mg In 50 50 / 50 ml @ 50 mls/hr IV Q24H [facility] Rx#: [id number] Oral 100 / 100 Output: Urine 375 / 375 # Bowel Movements Other: Other Intake Source NPO Weight 95.8 kg 95.8 kg Weight Measurement Method [facility] Patient Weight 06/16/24 06:59 Weight 95.8 kg
--- NOTE | 2024-06-15 14:49 | Hospitalist Progress Note ---
Date of Service June 15, 2024 Assessment & Plan (1) Symptomatic anemia: Plan 78 year old male with PMH of CAD s/p stent, s/p bioprosthetic aortic valve replacement, anticoagulated on warfarin, ESRD on HD, hypertension, hyperlipidemia, bladder cancer presented to ER with c/o progressive weakness. He reported a lot of fatigue and generalized weakness with dialysis sessions recently, shortness of breath with exertion, feeling very weak and lightheaded. Patient denies any new cough, does have some baseline cough. Makes small amount of urine. Denies hematuria/dysuria. Patient reports being constipated for about 5 days before he was able to move bowel 1 day prior to arrival which he reports was black in color, denies seeing any red blood in the stool to me during bedside exam on 06/09. He is being managed for the following: Symptomatic anemia: Likely UGI bleed Acute blood loss anemia: likely 2/2 above Patient presents with progressive weakness, admitting hemoglobin of 5.9, FOBT positive. Admitting CTAP reviewed, moderate stool in the rectum noted. S/P 3 units PRBC S/P EGD scope 06/10, erythematous gastric antral mucosa noted and biopsied- chronic gastritis without any evidence of Helicobacter pylori infection Continue to hold ASA/Coumadin. Plan to dc warfarin, appreciate cards recs. Resume aspirin w/ GI clearance. 2:1 Mobitz II heart block: Noted 06/13-06/14 overnight. d/w cardio, npo midnight, plan to re-eval in am. c/w tele monitoring. monitor electrolytes. Appreciate cardiology input and recommendation Will need pacemaker and following extensive discussion with the engineering specialist and the patient, Decision was taken by the patient to have a leadless pacemaker placed in [place] The patient will be discharged home this afternoon if feeling well and will have leadless pacemaker placed as soon as possible Constipation: Titrate bowel regimen with a goal of 1-2 bowel movements a day. Follow. Pt refusing bowel regimen, when advised to comply to help w/ constipation and hemorrhoids, he laughs it off. Will continue to encourage. Possible atypical pneumonia, volume overload 2/2 incomplete dialysis: CXR with mild opacification of right cardiophrenic angle and is s/o mild volume overload, patient with minimal cough at baseline but denies any sputum. Respiratory BioFire negative. Leukocytosis noted, procalcitonin negative. Wheezing was noted on exam at presentation, could be d/t volume overload 2/2 incomplete dialysis [employer]. Continue with doxycycline 06/09 (now changed to levaquin 06/11, see below). Wean down O2 as needed. Nephro on board to help w/ HD. Diuresis has been increased, d/w nephro , plan for further HD may to help w/ pul edema. Urinary colonization with Pseudomonas Vs Acute infection, likely acute UTI : Patient does not have pain and burning while passing urine, 06/09 urinary culture positive for Pseudomonas. Patient w/ low grade fever 06/10, started levaquin 06/11, plan for 7-10 days, c/w probiotic. Continue levaquin. ESRD on dialysis: On MWF schedule. Had HD on the day of arrival but finished session early secondary to weakness. Nephro consult. Aortic valve replacement, history of: History of aortic stenosis status post TAVR in 2019, anticoagulated on warfarin. Cardiology consult for assistance with anticoagulation recommendation appreciated. Elevated troponin: Troponin flat trending 20s, patient with no chest pain. Troponin elevated likely in the setting of chronic kidney disease on ESRD, likely not demand ischemia. CAD: Status post stent 2019. Aspirin on hold for now, see above. Continue statin. DVT prophylaxis: SCDs PCU Full Code as per discussion with pt, however reports would not want prolonged intubation if poor prognosis Follows with Dr Maki for routine care Dispo: awaiting cards eval. Pt updated over the phone 06/14 Dr. Bartolome Salter reached out via TT -The surgery is on hold Admission and Anticipated Discharge Date Admission Date: June 08, 2024 Subjective 06/15/2024 The patient was seen and examined in telemetry unit in presence of the He has been hungry and remains weak and tired He is a status post dialysis and debating about having a leadless or pacemaker with leads Denies any significant symptoms Review of Systems Review of Systems: All systems reviewed and are unremarkable except as noted below Physical Exam Physical Exam: Lying in bed without any acute distress Constitutional: well developed, well nourished, + ill appearing and + obese Eyes: PERRL, conjunctivae normal, anicteric sclerae ENMT: external ear and nose normal, oropharynx normal Respiratory: no respiratory distress Auscultation: + diminished lung sounds and + crackles (Minimal crackles at the bases) Cardiovascular: Rate/Rhythm: regular rate and regular rhythm; not tachycardic Heart Sounds: normal S1, normal S2 and + murmur Extremities: no edema Gastrointestinal (Abdomen): Inspection/Auscultation: normal bowel sounds; abdomen not distended Percussion/Palpation: abdomen soft; abdomen nontender Musculoskeletal: No acute arthritis involving any of the joint Neurologic: normal touch/pain/proprioception and moves all extremities; no focal motor deficits Lymphatic: no cervical or axillary lymphadenopathy Results & Data Results & Data Vital Signs (Past 12 Hours) Vital Signs Temp Pulse Pulse Pulse Resp BP BP 06/15/24 13:36 90 06/15/24 13:11 36.4 C L 89 18 91/54 L 06/15/24 12:30 85 87/54 L 06/15/24 12:03 36.5 C 84 98/45 L 06/15/24 12:00 84 88/45 L 06/15/24 11:30 84 84/44 L 06/15/24 11:00 82 85/46 L 06/15/24 10:30 81 84/44 L 06/15/24 10:00 78 88/52 L 06/15/24 09:30 76 101/58 L 06/15/24 09:14 79 98/52 L 06/15/24 09:07 36.5 C 81 06/15/24 08:08 06/15/24 07:48 36.7 C 83 18 95/52 L 06/15/24 06:54 89 06/15/24 03:43 36.4 C L 89 18 93/56 L Pulse Ox O2 Del Method O2 Flow Rate 06/15/24 13:36 06/15/24 13:11 97 Nasal Cannula 3 06/15/24 12:30 06/15/24 12:03 06/15/24 12:00 06/15/24 11:30 06/15/24 11:00 06/15/24 10:30 06/15/24 10:00 06/15/24 09:30 06/15/24 09:14 06/15/24 09:07 06/15/24 08:08 Nasal Cannula 3 06/15/24 07:48 92 Nasal Cannula 3 06/15/24 06:54 06/15/24 03:43 96 Room Air Laboratory Results Short CBC 06/15/24 Range/Units 06:55 WBC 9.46 (4.8-10.8) K/ul Hgb 8.5 L (14.0-18.0) g/dl Hct 27.7 L (42.0-52.0) % Plt Count 266 (130-400) K/uL BMP 06/15/24 06:55 Sodium 142 Potassium 3.9 Chloride 104 Carbon Dioxide 28 BUN 51 H Creatinine 6.80 H* D Glucose 141 H Calcium 10.0 Medications Administered Current Inpatient Medications Acetaminophen (Acetaminophen 325 Mg Tab) 650 mg PO Q4H PRN PRN Reason: Pain or Fever Stop: 07/08/24 21:39 Atorvastatin Calcium (Atorvastatin 40 Mg Tab) 80 mg PO HS NATHANAEL Stop: 07/08/24 21:39 Last Admin: 06/14/24 20:24 Dose: 80 mg Atropine Sulfate (Atropine Sulfate 0.1 Mg/Ml 10ml Syr) 1 mg IV Q3M PRN PRN Reason: symptomatic bradycardia Stop: 07/13/24 20:52 Docusate Sodium (Docusate Sodium 100 Mg Cap) 100 mg PO BID NATHANAEL Stop: 07/09/24 12:44 Last Admin: 06/15/24 07:57 Dose: Not Given Finasteride (Finasteride 5 Mg Tab) 5 mg PO HS NATHANAEL Stop: 07/09/24 20:59 Last Admin: 06/14/24 20:24 Dose: 5 mg Pantoprazole Sodium (Protonix) 40 mg in 10 mls @ 5 mls/min IV BID NATHANAEL Stop: 07/08/24 22:44 Last Admin: 06/15/24 07:58 Dose: 5 mls/min Levofloxacin/Dextrose (Levaquin/D5w) 250 mg in 50 mls @ 50 mls/hr IV Q24H NATHANAEL Stop: 06/17/24 16:59 Last Infusion: 06/14/24 17:23 Dose: Infused Lactobacillus Acidophilus (Advanced Probiotic 625 Mg Capsule) 1,250 mg PO DAILY NATHANAEL Stop: 07/11/24 15:44 Last Admin: 06/15/24 07:55 Dose: 1,250 mg Ondansetron HCl (Ondansetron Inj 2 Mg/Ml 2 Ml Vial) 4 mg IV Q6H PRN PRN Reason: Nausea Stop: 07/08/24 21:39 Polyethylene Glycol (Polyethylene (Miralax) 17 Gm Pack) 17 gm PO DAILY [facility] Stop: 07/09/24 12:44 Last Admin: 06/15/24 07:57 Dose: Not Given Torsemide (Torsemide 20 Mg Tab) 20 mg PO SuTuThSa [facility] Stop: 07/11/24 08:59 Last Admin: 06/12/24 08:25 Dose: 20 mg Torsemide (Torsemide 100 Mg Tab) 100 mg PO SuTuThSa@0900,2100 [facility] Stop: 07/16/24 08:59
[2024-06-16] MEDS: TORSEMIDE 100 MG TAB PO SCH (08:58)
[2024-06-16 10:43] LABS: INR 1.2 (0.9-1.1); Prothrombin Time 12.5 Seconds (9.0-12.0)
[2024-06-16 10:53] VITALS: BP 85/52; RESP 18; TEMP 98.2; O2SAT 91
--- NOTE | 2024-06-16 12:08 | Hospitalist Progress Note ---
Date of Service June 16, 2024 Assessment & Plan (1) Symptomatic anemia: Plan 78 year old male with PMH of CAD s/p stent, s/p bioprosthetic aortic valve replacement, anticoagulated on warfarin, ESRD on HD, hypertension, hyperlipidemia, bladder cancer presented to ER with c/o progressive weakness. He reported a lot of fatigue and generalized weakness with dialysis sessions recently, shortness of breath with exertion, feeling very weak and lightheaded. Patient denies any new cough, does have some baseline cough. Makes small amount of urine. Denies hematuria/dysuria. Patient reports being constipated for about 5 days before he was able to move bowel 1 day prior to arrival which he reports was black in color, denies seeing any red blood in the stool to me during bedside exam on 06/09. He is being managed for the following: Symptomatic anemia: Likely UGI bleed Acute blood loss anemia: likely 2/2 above Patient presents with progressive weakness, admitting hemoglobin of 5.9, FOBT positive. Admitting CTAP reviewed, moderate stool in the rectum noted. S/P 3 units PRBC S/P EGD scope 06/10, erythematous gastric antral mucosa noted and biopsied- chronic gastritis without any evidence of Helicobacter pylori infection Continue to hold ASA/Coumadin. Plan to dc warfarin, appreciate cards recs. Resume aspirin w/ GI clearance. 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 d/w cardio, npo midnight, plan to re-eval in am. c/w tele monitoring. monitor electrolytes. Appreciate cardiology input and recommendation Will need pacemaker and following extensive discussion with the purchasing specialist and the patient, Decision was taken by the patient to have a leadless pacemaker placed in [place] The patient will be discharged home this afternoon if feeling well and will have leadless pacemaker placed as soon as possible The office of Dr. Wilkinson and Dr. Leigh will call the patient with an appointment for proposed pacemaker placement in near future Constipation: Titrate bowel regimen with a goal of 1-2 bowel movements a day. Follow. Pt ref using bowel regimen, when advised to comply to help w/ constipation and hemorrhoids, he laughs it off. Will continue to encourage. Possible atypical pneumonia, volume overload 2/2 incomplete dialysis: CXR with mild opacification of right cardiophrenic angle and is s/o mild volume overload, patient with minimal cough at baseline but denies any sputum. Respiratory BioFire negative. Leukocytosis noted, procalcitonin negative. Wheezing was noted on exam at presentation, could be d/t volume overload 2/2 incomplete dialysis [employer]. Continue with doxycycline 06/09 (now changed to levaquin 06/11, see below). Wean down O2 as needed. Nephro on board to help w/ HD. Diuresis has been increased, d/w nephro , plan for further HD may to help w/ pul edema. Will continue to have hemodialysis as an outpatient He will require oxygen at rest and with ambulation due to multiple comorbid condition including frequent volume overload secondary to end-stage renal disease Urinary colonization with Pseudomonas Vs Acute infection, likely acute UTI : Patient does not have pain and burning while passing urine, 06/09 urinary culture positive for Pseudomonas. Patient w/ low grade fever 06/10, started levaquin 06/11, plan for 7-10 days, c/w probiotic. Continue levaquin. will finish the course for 7 days ESRD on dialysis: On MWF schedule. Had HD on the day of arrival but finished session early secondary to weakness. Nephro consult. Aortic valve replacement, history of: History of aortic stenosis status post TAVR in 2019, anticoagulated on warfarin. Cardiology consult for assistance with anticoagulation recommendation appreciated. Elevated troponin: Troponin flat trending 20s, patient with no chest pain. Troponin elevated likely in the setting of chronic kidney disease on ESRD, likely not demand ischemia. CAD: Status post stent 2019. Aspirin on hold for now, see above. Continue statin. DVT prophylaxis: SCDs PCU Full Code as per discussion with pt, however reports would not want prolonged in tubation if poor prognosis Follows with Dr Maki for routine care Dispo: awaiting cards eval. Pt updated over the phone 06/14 Dr. Bartolome Salter reached out via TT -The surgery is on hold Admission and Anticipated Discharge Date Admission Date: June 08, 2024 Subjective 06/15/2024 The patient was seen and examined in telemetry unit in presence of the He has been hungry and remains weak and tired He is a status post dialysis and debating about having a leadless or pacemaker with leads Denies any significant symptoms 06/16/2024 The patient was seen and examined in telemetry unit He remains generally weak but denies any other significant symptoms He has had 2 steps O2 saturation test and he will need oxygen as advised He would be discharged this afternoon Review of Systems Review of Systems: All systems reviewed and are unremarkable except as noted below Physical Exam Physical Exam: Lying in bed without any acute distress Constitutional: well developed, well nourished, + ill appearing and + obese Eyes: PERRL, conjunctivae normal, anicteric sclerae ENMT: external ear and nose normal, oropharynx normal Respiratory: no respiratory distress Auscultation: + diminished lung sounds and + crackles (Minimal crackles at the bases) Cardiovascular: Rate/Rhythm: regular rate and regular rhythm; not tachycardic Heart Sounds: normal S1, normal S2 and + murmur Extremities: no edema Gastrointestinal (Abdomen): Inspection/Auscultation: normal bowel sounds; abdomen not distended Percussion/Palpation: abdomen soft; abdomen nontender Neurologic: normal touch/pain/proprioception and moves all extremities; no focal motor deficits Lymphatic: no cervical or axillary lymphadenopathy Results & Data Results & Data Vital Signs (Past 12 Hours) Vital Signs Temp Pulse Pulse Pulse Pulse Pulse Resp 06/16/24 10:52 36.8 C 81 18 06/16/24 08:27 91 H 81 82 06/16/24 08:00 06/16/24 07:49 36.6 C 78 18 06/16/24 07:18 84 06/16/24 03:31 37.1 C 87 18 Resp Resp Resp BP Pulse Ox Pulse Ox Pulse Ox 06/16/24 10:52 85/52 L 91 06/16/24 08:27 24 20 20 87 L 92 06/16/24 08:00 06/16/24 07:49 85/48 L 93 06/16/24 07:18 06/16/24 03:31 84/53 L 98 Pulse Ox O2 Del Method O2 Flow Rate O2 Flow Rate O2 Flow Rate O2 Flow Rate 06/16/24 10:52 Nasal Cannula 2 06/16/24 08:27 86 L 3 2 0 06/16/24 08:00 Nasal Cannula 3 06/16/24 07:49 Nasal Cannula 2 06/16/24 07:18 06/16/24 03:31 Nasal Cannula 3.0 Medications Administered Current Inpatient Medications Acetaminophen (Acetaminophen 325 Mg Tab) 650 mg PO Q4H PRN PRN Reason: Pain or Fever Stop: 07/08/24 21:39 Atorvastatin Calcium (Atorvastatin 40 Mg Tab) 80 mg PO HS [facility] Stop: 07/08/24 21:39 Last Admin: 06/15/24 20:03 Dose: 80 mg Atropine Sulfate (Atropine Sulfate 0.1 Mg/Ml 10ml Syr) 1 mg IV Q3M PRN PRN Reason: symptomatic bradycardia Stop: 07/13/24 20:52 Docusate Sodium (Docusate Sodium 100 Mg Cap) 100 mg PO BID [facility] Stop: 07/09/24 12:44 Last Admin: 06/16/24 08:53 Dose: Not Given Finasteride (Finasteride 5 Mg Tab) 5 mg PO HS [facility] Stop: 07/09/24 20:59 Last Admin: 06/15/24 20:03 Dose: 5 mg Pantoprazole Sodium (Protonix) 40 mg in 10 mls @ 5 mls/min IV BID NATHANAEL Stop: 07/08/24 22:44 Last Admin: 06/16/24 08:59 Dose: 5 mls/min Levofloxacin/Dextrose (Levaquin/D5w) 250 mg in 50 mls @ 50 mls/hr IV Q24H NATHANAEL Stop: 06/17/24 16:59 Last Infusion: 06/15/24 18:26 Dose: Infused Lactobacillus Acidophilus (Advanced Probiotic 625 Mg Capsule) 1,250 mg PO DAILY [facility] Stop: 07/11/24 15:44 Last Admin: 06/16/24 08:58 Dose: 1,250 mg Ondansetron HCl (Ondansetron Inj 2 Mg/Ml 2 Ml Vial) 4 mg IV Q6H PRN PRN Reason: Nausea Stop: 07/08/24 21:39 Polyethylene Glycol (Polyethylene (Miralax) 17 Gm Pack) 17 gm PO DAILY [facility] Stop: 07/09/24 12:44 Last Admin: 06/16/24 08:53 Dose: Not Given Torsemide (Torsemide 20 Mg Tab) 20 mg PO SuTuThSa [facility] Stop: 07/11/24 08:59 Last Admin: 06/12/24 08:25 Dose: 20 mg Torsemide (Torsemide 100 Mg Tab) 100 mg PO SuTuThSa@0900,2100 [facility] Stop: 07/16/24 08:59 Last Admin: 06/16/24 08:58 Dose: 100 mg
[2024-06-16 12:37] VITALS: PULSE 88
--- NOTE | 2024-06-16 18:27 | Discharge Summary ---
Date of Service June 16, 2024 Admission HPI Per Admitting Provider Patient is 78 year old male with PMH CAD s/p stent, s/p bioprosthetic aortic valve replacement, anticoagulated on warfarin, ESRD on HD, hypertension, hyperlipidemia, bladder cancer presented to ER with c/o weakness. Patient states has been having a lot of fatigue and generalized weakness with dialysis sessions recently. Also reports recently having dry heaves without vomiting in the evenings after dialysis. The other days he doesn't have dry heaves. Reports some SOB with exertion. Today had dialysis and almost finished session but was stopped secondary to patient feeling very weak and lightheaded. Patient states during dialysis supplemental oxygen was applied. He doesn't use oxygen at home. He denies any cough, CP, rhinorrhea. Makes small amount of urine. Denies hematuria, dysuria. States constipated for 5 days and yesterday had BM and states noticed very small amount of red blood. Denies further rectal bleeding. Denies melena or hematochezia, fever/chills, diaphoresis, N/V/D/C, [place], dizziness, syncope, vision changes, neck pain, CP, SOB, orthopnea, palpitations, cough, sore throat, choking, otalgia, rhinorrhea, abdominal pain, paresthesias, weakness, extremity weakness, extremity edema, rashes, urinary symptoms. History colonoscopy 11/2022: extremely large hemorrhoids, diverticulosis entire colon History EGD 01/2020: small hiatal hernia, single gastric polyp, scar in gastric antrum Admission Exam Per Admitting Provider Physical Exam: General: no distress, overweight elderly male Head: normocephalic, atraumatic Eyes: conjunctiva non-injected, anicteric ENT: normal inspection external ears, nose, mucous membranes moist Neck: supple, trachea midline Lungs: no respiratory distress on 2L O2 via NC with O2 sat 100%, diminished breath sounds bilateral bases, slight scattered wheezing CV: RRR, no murmur, trace pretibial edema Abd: normal BS, soft, non-tender Ext: no cyanosis, no calf tenderness Neuro: A&O x 3, no focal deficits noted, normal affect Skin: warm, dry Principal Diagnosis Symptomatic anemia, GI bleed with erythematous gastric antral mucosa on endoscopy, Mobitz type II heart block, end-stage renal disease on hemodialysis, urinary colonization with Pseudomonas versus acute UTI Discharge Exam Lying in bed without any acute distress Constitutional well developed, well nourished, + ill appearing and + obese Eyes PERRL, conjunctivae normal, anicteric sclerae ENMT external ear and nose normal, oropharynx normal Respiratory no respiratory distress Auscultation: + diminished lung sounds and + crackles (Minimal crackles at the bases) Cardiovascular Rate/Rhythm: regular rate and regular rhythm; not tachycardic Heart Sounds: normal S1, normal S2 and + murmur Extremities: no edema Gastrointestinal (Abdomen) Inspection/Auscultation: normal bowel sounds; abdomen not distended Percussion/Palpation: abdomen soft; abdomen nontender Neurologic normal touch/pain/proprioception and moves all extremities; no focal motor deficits Lymphatic no cervical or axillary lymphadenopathy Discharge Data Allergies Allergy/AdvReac Type Severity Reaction Status Date / Time cephalexin Allergy Severe Tongue and Verified 06/08/24 20:11 face swelling tamsulosin Allergy Severe angioedema Verified 06/08/24 20:11 Consultations 06/08/24 18:46 ED Decision to Admit Stat 06/08/24 21:40 Consult Cardiology Routine Consult Gastroenterology Routine Consult Nephrology Routine Procedures Performed Operation Date: 06/10/24 17:00 Actual Procedures p EGD Biopsy Cytology(Not Applicable) - Andrea Cruz MD Ordered Studies 06/08/24 19:48 CT Abd and Pelvis [CT abd pelvis wo con] Routine Hospital Course (1) Symptomatic anemia: Plan 78 year old male with PMH of CAD s/p stent, s/p bioprosthetic aortic valve replacement, anticoagulated on warfarin, ESRD on HD, hypertension, hyperlipidemia, bladder cancer presented to ER with c/o progressive weakness. He reported a lot of fatigue and generalized weakness with dialysis sessions recently, shortness of breath with exertion, feeling very weak and lightheaded. Patient denies any new cough, does have some baseline cough. Makes small amount of urine. Denies hematuria/dysuria. Patient reports being constipated for about 5 days before he was able to move bowel 1 day prior to arrival which he reports was black in color, denies seeing any red blood in the stool to me during bedside exam on 06/09. He is being managed for the following: Symptomatic anemia: Likely UGI bleed Acute blood loss anemia: likely 2/2 above Patient presents with progressive weakness, admitting hemoglobin of 5.9, FOBT positive. Admitting CTAP reviewed, moderate stool in the rectum noted. S/P 3 units PRBC S/P EGD scope 06/10, erythematous gastric antral mucosa noted and biopsied- chronic gastritis without any evidence of Helicobacter pylori infection Continue to hold ASA/Coumadin. Plan to dc warfarin, appreciate cards recs. Resume aspirin w/ GI clearance. 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 d/w cardio, npo midnight, plan to re-eval in am. c/w tele monitoring. monitor electrolytes. Appreciate cardiology input and recommendation Will need pacemaker and following extensive discussion with the product test specialist and the patient, Decision was taken by the patient to have a leadless pacemaker placed in [place] The patient will be discharged home this afternoon if feeling well and will have leadless pacemaker placed as soon as possible The office of Dr. Wilkinson and Dr. Leigh will call the patient with an appointment for proposed pacemaker placement in near future Constipation: Titrate bowel regimen with a goal of 1-2 bowel movements a day. Follow. Pt refusing bowel regimen, when advised to comply to help w/ constipation and hemorrhoids, he laughs it off. Will continue to encourage. Possible atypical pneumonia, volume overload 2/2 incomplete dialysis: CXR with mild opacification of right cardiophrenic angle and is s/o mild volume overload, patient with minimal cough at baseline but denies any sputum. Respiratory BioFire negative. Leukocytosis noted, procalcitonin negative. Wheezing was noted on exam at presentation, could be d/t volume overload 2/2 incomplete dialysis [employer]ACH[employer]. Continue with doxycycline 06/09 (now changed to levaquin 06/11, see below). Wean down O2 as needed. Nephro on board to help w/ HD. Diuresis has been increased, d/w nephro , plan for further HD may to help w/ pul edema. Will continue to have hemodialysis as an outpatient He will require oxygen at rest and with ambulation due to multiple comorbid condition including frequent volume overload secondary to end-stage renal disease Urinary colonization with Pseudomonas Vs Acute infection, likely acute UTI : Patient does not have pain and burning while passing urine, 06/09 urinary culture positive for Pseudomonas. Patient w/ low grade fever 06/10, started levaquin 06/11, plan for 7-10 days, c/w probiotic. Continue levaquin. will finish the course for 7 days ESRD on dialysis: On MWF schedule. Had HD on the day of arrival but finished session early secondary to weakness. Nephro consult. Aortic valve replacement, history of: History of aortic stenosis status post TAVR in 2019, anticoagulated on warfarin. Cardiology consult for assistance with anticoagulation recommendation appreciated. Elevated troponin: Troponin flat trending 20s, patient with no chest pain. Troponin elevated likely in the setting of chronic kidney disease on ESRD, likely not demand ischemia. CAD: Status post stent 2019. Aspirin on hold for now, see above. Continue statin. DVT prophylaxis: SCDs PCU Full Code as per discussion with pt, however reports would not want prolonged intubation if poor prognosis Follows with Dr Maki for routine care Dispo: awaiting cards eval. Pt updated over the phone 06/14 Dr. Bartolome Salter reached out via TT -The surgery is on hold Total Time Total Time Spent Total Time Spent (In Minutes): 45 Minutes Discharge Plan Discharge Items Patient Disposition: Home - Self-Care Reason For Visit: ANEMIA, GI BLEED Discharge Diagnosis: Symptomatic anemia, GI bleed with erythematous gastric antral mucosa on endoscopy, Mobitz type II heart block, end-stage renal disease on hemodialysis, urinary colonization with Pseudomonas versus acute UTI Condition on Discharge: Fair Activity: Resume your previous activity Non-emergency contact: Primary Care Provider Call non-emergency contact if: you have any medication questions and your symptoms worsen Follow-up/Referrals: Mike Maki MD [Primary Care Provider] - (Date & Time 06/23/2024 11:20 AM Provider: Mike Maki MD General Internal Medicine [facility] ) Diet: Dialysis Renal and Heart Healthy Fluids: 1500ml (6 cups) Addtl Attending Provider Instructions: Please take precautions to avoid falls Use oxygen as advised Office of Dr. Wilkinson and Dr. Leigh will call you with an appointment for proposed pacemaker placement in near future Please finish the course of antibiotic and you can try [id number] probiotics as long as you are on antibiotic Keep follow-up appointments with the healthcare providers and continue hemodialysis as an outpatient Pending Studies at Discharge: No Stand-Alone Forms: My [facility], Smoking Cessation Medications and DC Order Prescriptions: New torsemide 100 mg Tablet 100 mg PO Adonay@0900,2100 Qty: 32 0RF levofloxacin 250 mg tablet 250 mg PO DAILY 3 Days Qty: 3 0RF Continued atorvastatin 80 mg tablet 80 mg PO HS finasteride 5 mg tablet 5 mg PO HS aspirin 81 mg Tablet,Chewable 81 mg PO HS sevelamer carbonate 800 mg tablet 800 mg PO TID 400 mcg Tablet,Chewable 2 tab PO DAILY Discontinued torsemide 20 mg tablet 20 mg PO [id number] Rx Instructions: THU- THU- UR-SAT warfarin 5 mg tablet See Rx Instructions .ROUTE .COMPLEX Rx Instructions: 5 mg Sundays. --SAT 7.5 mg Discharge Orders: Discharge Order (Routine); Ordered 06/16/24 Ordered By: Ghulam Harper/Other Patient Handouts: Chest and Lung Problems, Anemia, Pulse Oximetry, Using Oxygen Safely, Lung Anatomy, Traveling with Oxygen, Using an Oxygen Tank at Home, Oxygen Supplemental Admission Data Admit Date/Time: 06/08/24 19:09 Attending Provider: Ghulam Benitez Admit Provider: Swetha Diego Primary Care Provider: Mike Maki Other Providers: Swetha Diego; Joseph Warren; Andrea Cruz; Shar Avelar; Michael Loving Other Interventions: Discharge Summary Assessment (RN) Last Done: 06/16/24 12:36
== END 2024-06-16 13:35 | disposition home or self-care (01) | DRG 377 ==
LOC: ED 16:00 → EDINP 19:09 → SUATTDRO 19:09 → EDINP 21:47 → 2S 22:49

== ENCOUNTER 2024-08-28 11:46 | Inpatient (IN) ==
--- OUTSIDE RECORDS SUMMARY | 2024-08-28 11:54 | External Medical Summary ---
Author Name Unknown Address Unknown Organization : Laboratory Report Ordering Provider Test Date Status CAMERON BANKS 08/19/2024 10:56:31 Final Therapeutic ranges for non-o perative patients:
Prophylaxsis/treatment of DVT: (Range:2.0-3.0)
Treatment of pulmonary embolism:(Range:2.0-3.0)
Prevention of systemic embolism from:
-tissue heart valves
-acute myocardial infarction
-valvular heart disease
-atrial fibrillation
(Range: 2.0-3.0)
Mechanical prosthetic valves: (Range: 2.5-3.5) Observation Date Value Abnormality Reference (Units ) Status INR in Capillary blood by Coagulation assay 08/19/2024 10:56:31 1.1 (INR) Final Performing Location
--- OUTSIDE RECORDS SUMMARY | 2024-08-28 11:54 | External Medical Summary | Summary of Care ---
Author Name Unknown Organization [facility] Address [address] [place] [address] Phone [phone] Care Team Providers Care Milk Bottler Name Role Phone Mike Maki MD Primary Care Provider + Encounter Details Date Type Department Care Team ([facility] st Contact Info) Description 08/23/2024 Orders Only Urology [address] [address] Chela Branch MD [address] [place] [address] [phone] Allergies Active Allergy Reactions Criticality Noted Date Comments Cephalexin 03/13/2011 Tamsulosin Hcl Unknown High 04/15/2011 Tongue swelling documented as of this encounter (statuses as of 08/24/2024) Medications Vit-Fe Fumarate-FA ( PLUS/IRON) 27-1 MG TABS Take 1 Tab by mouth daily. 90 Tab 1 0 Active Aspirin EC 81 MG Oral Tablet Delayed Release Take 1 Tablet by mouth at bedtime. 100 Tablet 3 3 Active Torsemide 20 MG Oral Tablet (Demadex)Indica tions:CKD (chronic kidney disease) stage 5, GFR less than 15 ml/min ([facility]) Take 5 Tablets by mouth in the morning. Take on Non Dialysis days,. 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 453.6 g 3 5 Active Lanthanum Carbonate 750 MG Oral Packet Take 1 Tablet by mouth in the morning and 1 Tablet at noon and 1 Tablet in the evening. Take with meals. Active Calcitriol 0.25 MCG Oral Capsule (Rocaltrol) Take 4 Capsules by mouth in the morning and 4 Capsules before bedtime. 240 Capsule 5 09/20/19 25 Active Tums E-X 750 750 MG Oral Tablet Chewable (calcium CARBonate) Take 2 Tablets by mouth in the morning and 2 Tablets at noon and 2 Tablets before bedtime. 180 Tablet 5 09/20/19 25 Active Finasteride 5 MG Oral Tablet (Proscar) Take 1 Tablet by mouth at bedtime. Takes at bedtime 90 Tablet 3 5 Active Finasteride 5 MG Oral Tablet (Proscar) Take 1 Tablet by mouth in the morning. 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 06/03/2022 Renal cyst, right 07/30/2021 Gastric nodule 07/11/2020 Type 2 diabetes mellitus wit h hemoglobin A1c goal of less than 7.5% 04/01/2020 S/P TAVR (transcatheter aortic valve replacement ) 11/22/2019 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 11/14/2019 Overview (11/14/2019): 10/2019 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 10/31/2019 S/P primary angioplasty with coronary stent 10/16 Renal osteodystrophy 06/01/2019 Hypertensive kidney disease with chronic kidney disease stage V 06/01/2019 Hyperparathyroidism, secondary renal 03/02/2018 Nonrheumatic aortic valve stenosis 08/28/2016 Hyperlipidemia LDL goal <70 12/20/2013 HTN, goal below 140/90 09/16/2013 Benign prostatic hyperplasia with urinary obstru ction 04/22/2011 Overview (02/16/2017): ICD-10 update of inactive term documented as of this encounter (statuses as of 08/24/2024) Resolved Problems Problem Noted Date Diagnosed Date Resolved Date Encephalopathy acute 12/22/2023 024 Acute respiratory failure with hypoxia 12/21/2023 02/13/2024 Type 2 diabetes mellitus wit h diabetic chronic kidney disease 04/11/2020 02/20/2022 Closed fracture of one rib o f left side with routine healing 02/29/2020 02/29/2020 Pre-diabetes 01/05/2020 07/11/2020 Aortic stenosis, severe 11/10/2019/3 05/2023 Acute blood loss anemia 11/10/2019 02/2 08/2020 Symptomatic anemia 11/10/2019 Elevated troponin 11/10/2019 11/14/2019 History of drainage of abscess 05/26/2018 07/11/2020 Overview (05/26/2018): Testes 2012 Mass of skin of hand, left 05/26/2018 0 11/10/2022 UTI symptoms 10/11/2016 05/26/2018 Testicular abscess 01/01/2012 9 Overview (01/01/2012): 2011 Kidney disease, chronic, sta ge IV (GFR 15-29 ml/min) 08/18/2011 06/01/2019 Hemorrhoids, external without complications 08/13/2011 05/26/2018 BPH without obstruction/lowe r urinary tract symptoms 04/03/2011 04/22/2011 HTN, goal below 140/90 03/13/201104/22 documented as of this encounter (statuses as of 08/24/2024) Immunizations Name Administration Dates Next Due COVID-19 mRNA, LNP-s, No Pre serve, 2-Dose Series (Iceberg) 09/19/2020,08/29/2020 Hepatitis B, 20+ yrs 01/08/2021,08/08/2020,07/1108/08/2020 PPD 08/06/2015,05/22/2014,05/03/2012 Pneumococcal Conjugate Vacc, 13 Valent (Prevnar) 06/22/2014 Pneumococcal Polysaccharide PPV23 (Pneumovax) 05/03/2012 TDAP (age 10 and older)(Boostrix) 09/29/2014 Varicella Zoster Vaccine Adult (Zostavax) 2012 Zoster Vaccine Recombinant (Shingrix) 12/15/2018 ,07/15/2018 documented [...] have concerns for your saf ety? No 05/06/2024 Do you have concerns for you r family's safety? (Household - for ages 0-17 years) Not on file 05/06/2024 Utilities Answer Date Recorded Do you have trouble paying y our heating, water, or electric bill? No 05/06/2024 Is your family able to pay t he heat, water, or electric bill? (Household - for ages 0-17 years) Not on file 05/06/2024 Does your family have access to good internet? (Household - for ages 0-17 years) Not on file 05/06/2024 Employment Status Answer Date Recorded Are you unemployed or without regular income? No 08/03/2023 Does the household have a [facility] source of income? (Household - for ages [...] 08/03/2023 Transportation Needs Answer Date Record ed Do you have trouble getting a ride to medical visits or work? (Adult - for ages 18 years and over) Not on file 05/07/2024 Does your family have a hard time getting a ride to doctors visits? (Household - for ages 0-17 years) Not on file 05/07/2024 Has lack of transportation k ept you from medical appointments, meetings, work, or from getting things needed for daily living? Check all that apply. No 05/07/2024 Do you (or your family) have trouble finding or paying for a ride (transportation)? (Household - for ages 0-17 years) Not on file 05/07/2024 Housing Stability Answer Date Recorded Do you currently live in a s helter or have no steady place to sleep at night? (Adult - for ages 18 years and over) Not on file 05/06/2024 Do you think you are at risk of becoming homeless? (Adult - for ages 18 years and over) Not on file 05/06/2024 Does your family worry about paying for your home or becoming homeless? (Household - for ages 0-17 years) Not on file 1 07/07/2023 Are you homeless or worried that you might be in the future? No 05/06/2024 Are you (or your family) vernon eless or worried that you might be in the future? (Household - for ages 0-17 years) Not on file Food Insecurity Answer Date Recorded Do you need food for this week? No 05/06/2024 Are you able to get enough f ood for your family? (Household - for ages 0-17 years) Not on file 05/06/2024 Does your family need food t his week? (Household - for ages 0-17 years) Not on file 05/06/2024 Do you always have enough fo od for your family? (Household - for ages 0-17 years) Not on file 05/06/2024 Food Insecurity Answer Date Recorded Worried About Running Out of Food in the Last Ye ar Not on file 05/06/2024 Ran Out of Food in the Last Year Not on file 05/06/2024 Do you need food for this week? 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 Answer Date of Assessment Author Yes 05/06/2024 8:20 PM Navid Reese RN * Are you blind or do you have serious difficulty seeing, even when wearing glasses? Answer Date of Assessment Author No 05/06/2024 8:20 PM Navid Reese RN * Do you have serious difficulty walking or climbing stairs? (5 years old or older) Answer Date of Assessment Author Yes 05/06/2024 8:20 PM Navid Reese RN * Do you have difficulty dressing or bathing? (5 years old or older) Answer Date of Assessment Author No 05/06/2024 8:20 PM Navid Reese RN * Because of a physical, mental, or emotional condition, do you have difficulty doing errands alone such as visiting a doctor’s office or shopping? (15 years old or older) Answer Date of Assessment Author No 05/06/2024 8:20 PM Navid Reese RN documented as of this encounter Mental Status * Because of a physical, mental, or emotional condition, do you have serious difficulty concentrating, remembering, or making decisions? (5 years old or older) Answer Entry Date Author No 05/06/2024 8:20 PM Navid Reese RN documented in this encounter Plan of Treatment Upcoming Encounters Date Type Department Care Team (Late st Contact Info) Description 09/06/2024 10:30 AM EDT Office Visit Cardiology, [facility] [address] [place] [phone] Prashant Stovall DO [address] [place] [address] 10/11/2024 11:00 AM EDT Cardiac Studies Cardiology, [facility] [address] [place] [phone] [facility] [address] [place] [address] 11/10/2024 3:20 PM EDT Office Visit General Internal Medicine [facility] [address] [place] [address] Mike Maki MD [address] [facility] [place] [address] 05/26/2025 1:00 PM EST Procedure Only Urology [facility] [address] [place] [address] Chela Branch MD [address] [place] [id number] Health Maintenance Due Date Last Done Comments Adult Wellness Visit 11/04/2017 11/04/2016 COVID-19 Vaccine ( season) 2024 09/19/2020, 08/29/2020 Diabetic Eye Exam 03/31/2024 03/31/2023, , 07/29/2021, Additional history exists Diabetic Foot Exam 06/17/2024 06/17/2023, 1 , 01/17/2021, Additional history exists Depression Screening 08/02/2024 08/03/2023 DTap/Tdap Vaccines (2 - Td or Tdap) 09/29/2024 09/29/2014 HbA1c 11/05/2024 05/07/2024, 08/01/2024, 03/20/2023, Additional history exists Influenza Vaccine (FLU shot) (Season Ended) 2025 Pneumococcal Vaccine: 50+ Years Completed 06/22/2014, 05/03/2012, 05/03/2012 Zoster Vaccines Completed 12/15/2018, 06/19, 12/07/2012 Hepatitis B Vaccine Completed 01/08/2021, 08/08/2020, 07/11/2020 HPV (Gardasil) Vaccine Aged Out No lo nger eligible based on patient's age to complete this topic MENINGOCOCCAL (MENACTRA/MENVEO) Aged Out No longer eligible based on patient's age to complete this topic Meningitis B Vaccine (Bexsero/Trumemba) Aged Out No longer eligible based on patient's age to complete this topic documented as of this encounter Medical Devices Implanted Type Area Hand [employer] Maker Device Identifier Shelf Expiration Date Model / Serial / Lot Pacemaker Dr Roque Right Atrial - [id number] - [id number] Implanted:Qty: 1 on 06/28/2024 by Edilson Duran, DO at [facility] [place] [place] [employer] [id number] 04/25/2025 [id number] / [id number] / [id number] Pacer Aveir [employer]less - [id number] - [id number] Implanted:Qty: 1 on 06/28/2024 by Edilson Duran, DO at [facility] [place] [place] [employer] 05/02/2025 [id number] / [id number] / [id number] documented as of this encounter Advance Directives * Full Code (Latest Code Status on File) Date Activated Date Inactivated Comments 08/19/2024 2:25 PM 08/20/2024 9:03 PM This order ref lects the patients wishes and were consensually agreed upon. Question Answer Comments Discussion of Advance Direct geno occurred with: Not Discussed due to patient's condition * Full Code Date Activated Date Inactivated Comments 05/06/2024 9:04 PM 05/07/2024 5:30 PM This order reflects the patients wishes and were consensually agreed upon. Question Answer Comments Discussion of Advance Directives occurred with: Patient * Full Code Date Activated Date Inactivated Comments 12/21/2023 2:28 PM 01/02/2024 5:56 PM This order re flects the patients wishes and were consensually agreed upon. Question Answer Comments Discussion of Advance Direct geno occurred with: Not Discussed due to patient's condition * Full Code Date Activated Date Inactivated Comments 11/22/2019 10:02 [...] Discussion of Advance Directives occurred with: Patient/Family Care Teams Milk Bottler Relationship Specialty Start Date End Date Mike Maki MD [address] [place] [address], [place] [address] PCP - General Internal Medicine 03/13/11 documented as of this encounter
[2024-08-28] MEDS ORDERED: SODIUM CHLORIDE 0.9% 100 ML IV PRN ×2 (12:01→22:42)
--- NOTE | 2024-08-28 12:07 | Emergency Department Note ---
Impression & Plan Acute GI bleeding, Melena, Hypocalcemia ED Provider Note HISTORY OF PRESENT ILLNESS: Patient is a 78-year-old male presenting for rectal hemorrhage. Patient reports that he has been having bleeding for the last 3 days. Reports that 3 days ago he started having blood with bowel movements. He states that yesterday he had continued bleeding but it had eased up a little bit. He states that today he is soaking through his underwear and pants. Family was concerned because the patient seemed to be very short of breath and seem to be labored in breathing. Patient reports feeling slightly lightheaded. He is on Eliquis. He has had previous blood transfusions. He does state he took his Eliquis today. Patient is a hemodialysis patient and receives dialysis Thursday/Thursday/Thursday. ROS: as above PHYSICAL EXAM: Constitutional: Patient appears in no acute distress. Pale in appearance HENT: Head: Normocephalic and atraumatic. Eyes: EOMI, PERRL Mouth/Throat: Mucous membranes moist. Neck: Trachea midline. Neck supple. Cardiovascular: RRR, No murmurs, rubs or gallops. Intact distal pulses. Pulmonary/Chest: No respiratory distress. Breath sounds clear and equal bilaterally. No wheezes or rales. Patient is conversationally dyspneic. Abdominal: Abdomen soft, no tenderness, rebound or guarding. : Chaperoned by nursing staff. Patient is covered in melanotic stool. Hemoccult positive. Musculoskeletal: No edema, tenderness or deformity noted. Skin: Warm and dry. Psychiatric: Appropriate mood and affect for situation. Neurological: Alert and keenly responsive. CN II-XII grossly intact, moving all extremities equally and fully. MDM: - Vitals signs showed hypotension. IV access was obtained via IV team in the right upper extremity. Patient has a left upper extremity limb restriction secondary to his fistula for dialysis. Given patient's hypotension in the setting of his acute GI bleed, arterial line and central line were placed by myself. Please see procedure notes below. - History obtained via patient and patient's . History as above. - Chronic conditions affecting care: ESRD; HTN; BPH; DM-2; bladder cancer; HLD; CAD (s/p PCI) - Differential diagnoses include, but are not limited to: upper GI bleed; coagulopathy; diverticular bleed; sepsis - Order placed for continuous cardiac monitoring. At this time, monitor showed rate of 80 bpm with normal sinus rhythm, per my interpretation. - External medical records reviewed. Discharge summary dated was reviewed. Patient was admitted for A-fib, sepsis and hypotension. - EKG image interpreted by myself showed normal sinus rhythm. Rate 76 bpm. QT 458. No acute ischemic changes. - Laboratory workup interpreted by myself showed leukocytosis (WBC 15.01); anemia (Hgb 8.2); normal PT/INR; stable electrolytes other than hypocalcemia (Ca 6.5); ESRD (cr 9.470; elevated troponin (73.1); normal lipase - Type and screen ordered - Patient was given Kcentra for reversal of his Eliquis, given his active melena on presentation and hypotension. He was given Protonix 80 mg bolus and started on a Protonix drip. While awaiting blood products, patient was given 1 L normal saline. 1 g of IV calcium gluconate was ordered for calcium replacement. - Discussed case with authorization rep, Dr. Aguilera. - Discussed case with GI men's and boys' clothing salesperson, Dr. Snyder, at 13:47. He reports the patient's baseline hemoglobin is 99.5. Reports the patient had an unremarkable EGD in May 2024. He does not feel the patient requires urgent EGD now, but will follow the patient. - Discussion was had with sample case porter about patient's case and need for admission - Hospitalist consulted for admission - Patient admitted to [facility] service for further evaluation and management. I have personally spent 62 minutes of critical care time in the direct management of this patient. This includes bedside care, interpretation of diagnostic studies, and testing, discussion with consultants, patient, and family members, and other required patient management activities. This 62 minutes is in excess of all separately billable procedures. PROCEDURES: 1. Femoral Central Venous Catheter Indication: IV access; frequent blood draws Catheter Type: Triple-lumen Location: Right femoral vein Verbal consent was obtained after the risks and benefits were explained, including but not limited to intra-abdominal injury, vessel injury, bleeding, scarring, infection, pain, and bone/joint/nerve damage. At this time, the risks of the procedure are less than the risks of NOT performing the procedure. A time out was taken and the correct patient and site identified. The patient was placed in the supine position and the skin was prepped in the standard fashion with chlorhexidine and full sterile drapes applied. The proper landmarks were identified with ultrasound, anesthetized with 1% lidocaine without epinephrine, and the needle was inserted through the skin in the standard fashion. The needle was carefully advanced into blood vessel lumen with ultrasound guidance. The guidewire was placed uneventfully. The vessel is dilated and the catheter was placed. It was sutured into position. There was good blood return from all ports. The patient tolerated the procedure well and there were no complications. 2. Arterial Line Verbal consent was obtained after the risks and benefits were explained, including but not limited to vessel injury, bleeding, scarring, infection, pain, and bone/joint/nerve damage. At this time, the risks of the procedure are less than the risks of NOT performing the procedure. A time out was taken and the correct patient and site identified. The patient was placed in the supine position and the skin was prepped in the standard fashion with chlorhexidine and full sterile drapes applied. The proper landmarks were identified with ultrasound, anesthetized with 1% lidocaine without epinephrine, and the needle was inserted through the skin in the standard fashion. The needle was carefully advanced into blood vessel lumen with ultrasound guidance. The guidewire was placed uneventfully. The catheter was placed. It was sutured into position. The patient tolerated the procedure well and there were no complications. ASSESSMENT AND PLAN: Diagnosis: acute GI bleed; melena; hypocalcemia Plan: admit Past Med/Surg History Problem List (Updated 08/28/24 @ 14:07 by Gaurang Aguilera, DO) Hypocalcemia (Acute) Melena (Acute) Acute GI bleeding (Acute) Emphysema lung Pacemaker Atrial fibrillation with rapid ventricular response Severe sepsis Pneumonia (Acute) Second degree AV block 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 History of transcatheter aortic valve replacement (TAVR) Rectal bleeding Symptomatic anemia ESRD on dialysis (Acute) GI bleed (Acute) Anemia (Acute) End-stage renal disease on hemodialysis Acidosis Hypoxia (Acute) Respiratory acidosis Metabolic encephalopathy Anticoagulated on Coumadin Multifocal pneumonia Acute respiratory failure with hypoxia and hypercapnia Diverticulitis of ascending colon UTI (urinary tract infection) Urinary tract infection due to Pseudomonas aeruginosa (Acute) CKD (chronic kidney disease) stage 5, GFR less than 15 ml/min (Acute) Colon polyps Encounter for pre-operative examination BPH (benign prostatic hyperplasia) Hypertension 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 " On 04/03/11 18:15 Norma Vargas wrote "with outflow obstruction " On 04/03/11 18:15 Norma Vargas wrote "with outflow obstruction " On 04/03/11 18:15 Norma Vargas wrote "with outflow obstruction " Absent renal function (04/03/11) Medical History Anemia Gastric nodule Type 2 diabetes mellitus NIDDM Bifascicular block ongoing since 2010 Umbilical hernia chronic per patient-denies change or worsening History of blood transfusion pre-op aortic valve replacement CAD (coronary artery disease) s/p 1 stent in 2019 HTN (hypertension) controlled, stable per pt History of diverticulitis entered into EMR 09/2022-patient states last flare was 1 year ago History of colon polyps BPH (benign prostatic hyperplasia) CKD (chronic kidney disease), stage V Arthritis Hx of bladder cancer surgery only Hyperlipidemia Surgical History History of cataract surgery left and right H/O cystoscopy History of tooth extraction [facility] (followed by Dr. Wei) History of heart artery stent 1 stent placed 2019 History of orchiectomy, unilateral History of arthroscopy of left knee History of colonoscopy Family History Mother Family history of diabetes mellitus Father Family hx of colon cancer Other No family history of adverse response to anesthesia Social History Smoking Status: Former smoker Tobacco Type: Cigarettes Second Hand Exposure: No; Do You Dip or Chew Tobacco: No; Hx Alcohol Use: No Hx Substance Use: No Preferred Language: Uzbek Communication Ability: Effective Financial Services Officer Required: No Beliefs That Will Affect Care: None Current Living Situation: Spouse Feels Safe at Home: Yes Assistive Devices: Cane Allergies Allergies Allergy/AdvReac Type Severity Reaction Status Date / Time cephalexin Allergy Severe Tongue and Verified 08/21/24 20:53 face swelling tamsulosin Allergy Severe angioedema Verified 08/21/24 20:53 Home Meds Home Medications Medication Instructions Recorded Confirmed atorvastatin 80 mg tablet 80 mg PO HS 07/01/22 08/28/24 finasteride 5 mg tablet 5 mg PO DAILY 07/01/22 08/28/24 vitamins no.144-folic 2 tab PO DAILY 06/08/24 08/28/24 acid 400 mcg chewable tablet () calcitriol 0.25 mcg capsule 1 mcg PO BID 08/21/24 08/28/24 calcium acetate(phosphat bind) 667 1,334 mg PO BID 08/21/24 08/28/24 mg capsule lanthanum 750 mg chewable tablet 750 mg PO TIDWMEAL 08/21/24 08/28/24 (Fosrenol) triamcinolone acetonide 0.1 % 1 applic topical BID PRN Itching 08/21/24 08/28/24 topical cream amiodarone 200 mg tablet 200 mg PO UD 08/28/24 08/28/24 Previous Rx's Medication Instructions Recorded torsemide 100 mg tablet 100 mg PO SuTuThSa@0900,2100 #32 06/16/24 tabs apixaban 5 mg tablet (Eliquis) 5 mg PO BID 30 days #60 tabs 08/25/24 midodrine 5 mg tablet 5 mg PO BID #60 tabs 08/25/24 pantoprazole 40 mg tablet,delayed 40 mg PO DAILY #30 tabs 08/25/24 release Results & Data (ED) Vital Signs Vital Signs - 24 hr 08/28/24 11:48 08/28/24 12:10 08/28/24 13:41 Temperature 36.8 C 36.5 C Temperature Source Temporal Artery Scan Oral Pulse Rate 83 80 73 Pulse Rhythm Regular Pulse Strength Normal Normal Respiratory Rate 19 20 Respiratory Effort / Characteristics Non-Labored Spontaneous Respiratory Depth Normal Respiratory Pattern Regular Blood Pressure 76/42 L 105/41 L Blood Pressure Mean 53 62 Blood Pressure Position Sitting Pulse Oximetry 94 99 Oxygen Delivery Method Room Air Sepsis Recent Fever Within 48 Hours No Sepsis New/Unexplained Change in Mental Status No Sepsis Action Taken by Nursing No Action Required 08/28/24 14:01 Temperature 36.6 C Temperature Source Oral Pulse Rate 71 Pulse Rhythm Regular Pulse Strength Normal Respiratory Rate 18 Respiratory Effort / Characteristics Respiratory Depth Respiratory Pattern Blood Pressure 102/44 L Blood Pressure Mean 63 Blood Pressure Position Lying Pulse Oximetry 100 Oxygen Delivery Method Sepsis Recent Fever Within 48 Hours Sepsis New/Unexplained Change in Mental Status Sepsis Action Taken by Nursing Laboratory Data 08/28/24 12:28 08/28/24 12:28 Lab Results 08/28/24 08/28/24 08/28/24 Range/Units 12:28 12:28 12:31 WBC 15.01 H (4.8-10.8) K/ul RBC 2.47 L (4.70-6.10) M/uL Hgb 8.2 L (14.0-18.0) g/dl POC Hgb 8.8 L (14.0-18.0) g/dl Hct 25.3 L (42.0-52.0) % POC Hct 26 L (42-52) % MCV 102.4 H (80.0-100.0) fL MCH 33.2 (25.0-34.0) pg MCHC 32.4 (32.0-36.0) g/dL RDW Std Deviation 62.7 H (36.4-46.3) fL RDW Coeff of Grace 17.0 H (11.5-14.5) % Plt Count 241 (130-400) K/uL MPV 10.4 (9.4-12.4) fL Immature Gran % (Auto) 2.8 % Neut % (Auto) 75.3 % Lymph % (Auto) 8.8 % Baxter % (Auto) 8.9 % Eos % (Auto) 3.9 % Baso % (Auto) 0.3 % Neut # (Auto) 11.32 H (1.40-6.50) K/uL Lymph # (Auto) 1.32 (1.20-3.40) K/uL Baxter # (Auto) 1.33 H (0.11-0.59) K/uL Eos # (Auto) 0.58 H (0.00-0.50) K/uL Baso # (Auto) 0.04 (0.00-0.20) K/uL Immature Gran # (Auto) 0.42 H (0.01-0.20) K/uL Absolute Nucleated RBC 0.02 (0.00-0.12) K/uL Nucleated RBC % (auto) 0.1 % PT 11.9 (9.0-12.0) Seconds INR 1.1 (0.9-1.1) APTT 28 (21-31) Seconds PTT Ratio 1.0 Fibrinogen Cancelled 425 H Heparin Anti-Xa, LM Wt 1.09 (< 0.10) IU/ML POC pH (7.35-7.45) POC pCO2 (35-46) mmHg POC pO2 (80-95) mmHg POC HCO3 (19-24) kelsea/L POC Base Excess (-9-1.8) kelsea/L POC ABG O2 Sat (90-95) % POC Sodium 138 (135-144) mmol/L Sodium 140 (136-145) mmol/L POC Potassium 4.3 (3.3-5.0) mmol/L Potassium 4.4 (3.5-5.1) mmol/L POC Chloride 98 L (101-112) mmol/L Chloride 99 (98-107) mmol/L Carbon Dioxide 28 (21-32) mmol/L POC Total CO2 24 (24-31) mmol/L Anion Gap 13 H (3-11) POC Anion Gap 21.0 (16-25) mmol/L POC BUN 105 H* (7-18) mg/dl BUN 99 H (6-23) mg/dl Creatinine 9.47 H* (0.6-1.4) mg/dl POC Creatinine 9.9 H* (0.6-1.3) mg/dl Est Cr Clr Drug Dosing Not Reportable eGFR 5.16 BUN/Creatinine Ratio 10.5 (10-20) Glucose 195 H (70-99(Fasting)) mg/dl POC Glucose (other) 193 H (70-99) mg/dl Lactate 1.3 (0.4-2.0) mmol/L Calcium 6.5 L (8.6-10.3) mg/dl POC Ioniz Calcium John 0.81 L (1.12-1.32) mmol/l Total Bilirubin 0.5 (0.2-1.0) mg/dl AST 9 L (13-39) U/L ALT 7 (7-52) U/L Alkaline Phosphatase 120 H (34-104) U/L Troponin I High Sens 73.1 H* (0-20) pg/ml Total Protein 6.0 (6.0-8.3) gm/dl Albumin 3.4 (3.4-5.0) gm/dl Globulin 2.6 (2.5-4.0) gm/dl Albumin/Globulin Ratio 1.3 (0.9-2) Lipase 36 (11-82) U/L Blood Type A Positive Antibody Screen NEGATIVE Crossmatch See Detail 08/28/24 Range/Units 13:54 WBC (4.8-10.8) K/ul RBC (4.70-6.10) M/uL Hgb (14.0-18.0) g/dl POC Hgb 7.1 L (14.0-18.0) g/dl Hct (42.0-52.0) % POC Hct 21 L (42-52) % MCV (80.0-100.0) fL MCH (25.0-34.0) pg MCHC (32.0-36.0) g/dL RDW Std Deviation (36.4-46.3) fL RDW Coeff of Grace (11.5-14.5) % Plt Count (130-400) K/uL MPV (9.4-12.4) fL Immature Gran % (Auto) % Neut % (Auto) % Lymph % (Auto) % Baxter % (Auto) % Eos % (Auto) % Baso % (Auto) % Neut # (Auto) (1.40-6.50) K/uL Lymph # (Auto) (1.20-3.40) K/uL Baxter # (Auto) (0.11-0.59) K/uL Eos # (Auto) (0.00-0.50) K/uL Baso # (Auto) (0.00-0.20) K/uL Immature Gran # (Auto) (0.01-0.20) K/uL Absolute Nucleated RBC (0.00-0.12) K/uL Nucleated RBC % (auto) % PT (9.0-12.0) Seconds INR (0.9-1.1) APTT (21-31) Seconds PTT Ratio Fibrinogen Heparin Anti-Xa, LM Wt (< 0.10) IU/ML POC pH 7.40 (7.35-7.45) POC pCO2 37 (35-46) mmHg POC pO2 87 (80-95) mmHg POC HCO3 23 (19-24) kelsea/L POC Base Excess -2.0 (-9-1.8) kelsea/L POC ABG O2 Sat 97.0 H (90-95) % POC Sodium 137 (135-144) mmol/L Sodium (136-145) mmol/L POC Potassium 4.1 (3.3-5.0) mmol/L Potassium (3.5-5.1) mmol/L POC Chloride (101-112) mmol/L Chloride (98-107) mmol/L Carbon Dioxide (21-32) mmol/L POC Total CO2 24 (24-31) mmol/L Anion Gap (3-11) POC Anion Gap (16-25) mmol/L POC BUN (7-18) mg/dl BUN (6-23) mg/dl Creatinine (0.6-1.4) mg/dl POC Creatinine (0.6-1.3) mg/dl Est Cr Clr Drug Dosing eGFR BUN/Creatinine Ratio (10-20) Glucose (70-99(Fasting)) mg/dl POC Glucose (other) (70-99) mg/dl Lactate (0.4-2.0) mmol/L Calcium (8.6-10.3) mg/dl POC Ioniz Calcium John (1.12-1.32) mmol/l Total Bilirubin (0.2-1.0) mg/dl AST (13-39) U/L ALT (7-52) U/L Alkaline Phosphatase (34-104) U/L Troponin I High Sens (0-20) pg/ml Total Protein (6.0-8.3) gm/dl Albumin (3.4-5.0) gm/dl Globulin (2.5-4.0) gm/dl Albumin/Globulin Ratio (0.9-2) Lipase (11-82) U/L Blood Type Antibody Screen Crossmatch Administered Medications Pantoprazole Sodium 40 mg/ (Dextrose) 100 mls @ 20 mls/hr IV Q5H NATHANAEL Stop: 09/27/24 12:44 Last Admin: 08/28/24 13:26 Dose: 8 mg/hr, 20 mls/hr Documented By: TIFFANIE Discontinued Medications Sodium Chloride (Nss) 500 mls @ 999 mls/hr IV .Q31M ONE Stop: 08/28/24 12:31 Last Infusion: 08/28/24 13:30 Dose: Infused Documented By: Admin: 08/28/24 12:58 Dose: 999 mls/hr Documented By: TIFFANIE Prothrombin Complex Concent ( (Human) 2,000 units/ Syringe) 80 mls @ 10 mls/min IV NOW STA Stop: 08/28/24 12:19 Last Admin: 08/28/24 12:26 Dose: 10 mls/min Documented By: RA Pantoprazole Sodium 80 mg/ (Dextrose) 120 mls @ 480 mls/hr IV NOW ONE Stop: 08/28/24 12:41 Last Infusion: 08/28/24 13:10 Dose: Infused Documented By: Admin: 08/28/24 12:53 Dose: 480 mls/hr Documented By: TIFFANIE Miscellaneous (Stat Iv/Im) 1 each N/A NOW STA Stop: 08/28/24 12:13 Last Admin: 08/28/24 13:53 Dose: Not Given Documented By: AR Pantoprazole Sodium (Pantoprazole Bolus/Drip) 1 each IV NOW STA Stop: 08/28/24 12:28 Last Admin: 08/28/24 13:53 Dose: Not Given Documented By: AR Discharge Plan Visit Data Chief Complaint: Bleeding Stated Complaint: HEMROAGING ED Provider: Beryl Espitia Discharge Problem: Acute GI bleeding, Melena, Hypocalcemia Forms Stand Alone Forms: My [facility] Prescriptions Prescriptions: No Action atorvastatin 80 mg tablet 80 mg PO HS finasteride 5 mg tablet 5 mg PO DAILY 400 mcg Tablet,Chewable 2 tab PO DAILY torsemide 100 mg Tablet 100 mg PO SuTuThSa@0900,2100 Qty: 32 0RF calcitriol 0.25 mcg capsule 1 mcg PO BID Rx Instructions: TAKE 4 CAPSULES BY MOUTH TWICE DAILY calcium acetate(phosphat bind) 667 mg capsule 1,334 mg PO BID triamcinolone acetonide 0.1 % cream 1 applic TOPICAL BID PRN (Reason: Itching) lanthanum [Fosrenol] 750 mg tablet,chewable 750 mg PO TIDWMEAL Eliquis 5 mg Tablet 5 mg PO BID 30 Days Qty: 60 0RF pantoprazole 40 mg Tablet,Delayed Release (Dr/Ec) 40 mg PO DAILY Qty: 30 0RF midodrine 5 mg tablet 5 mg PO BID Qty: 60 0RF Rx Instructions: Sun, Tues, Thdarlene and Sat amiodarone 200 mg tablet 200 mg PO UD Rx Instructions: Take 200mg twice a day for a week, then 200mg daily afterwards Referrals Referrals: Mike Maki MD [Primary Care Provider] -
[2024-08-28] MEDS: PROTHROMBIN COMP CONC- KCENTRA 2,000 UNITS in SYRINGE 0 ML IV STA (12:26)
[2024-08-28 12:44] LABS: iSTAT Creatinine 9.9 mg/dl (0.6-1.3); iSTAT Hemoglobin 8.8 g/dl (14.0-18.0); iSTAT Ionized Calcium 0.81 mmol/l (1.12-1.32); iSTAT Potassium 4.3 mmol/L (3.3-5.0)
[2024-08-28 12:48] LABS: Basophils # (auto) 0.04 K/uL (0.00-0.20); Basophils % (auto) 0.3 %; Eosinophils # (auto) 0.58 K/uL (0.00-0.50); Eosinophils % (auto) 3.9 %; Hematocrit (blood only) 25.3 % (42.0-52.0); Hemoglobin 8.2 g/dl (14.0-18.0); Immature Granulocytes # (auto) 0.42 K/uL (0.01-0.20); Immature Granulocytes % (auto) 2.8 %; Lymphocytes # (auto) 1.32 K/uL (1.20-3.40); Lymphocytes % (auto) 8.8 %; Mean Corpuscular Hemoglobin 33.2 pg (25.0-34.0); Mean Corpuscular Hgb Conc 32.4 g/dL (32.0-36.0); Mean Corpuscular Volume 102.4 fL (80.0-100.0); Mean Platelet Volume 10.4 fL (9.4-12.4); Monocytes # (auto) 1.33 K/uL (0.11-0.59); Monocytes % (auto) 8.9 %; Neutrophils # (auto) 11.32 K/uL (1.40-6.50); Neutrophils % (auto) 75.3 %; Nucleated RBC # (auto) 0.02 K/uL (0.00-0.12); Nucleated RBC % (auto) 0.1 %; Platelet Count 241 K/uL (130-400); RDW Standard Deviation 62.7 fL (36.4-46.3); Red Blood Count 2.47 M/uL (4.70-6.10); White Blood Count 15.01 K/ul (4.8-10.8)
[2024-08-28] MEDS: PANTOprazole 80 MG in DEXTROSE 5% 100 ML IV ONE (12:53)
[2024-08-28] MEDS: SODIUM CHLORIDE 0.9% 500 ML IV ONE (12:58)
[2024-08-28 13:07] LABS: Alanine Aminotransferase 7 U/L (7-52); Albumin Globulin Ratio 1.3 (0.9-2); Albumin Level 3.4 gm/dl (3.4-5.0); Alkaline Phosphatase 120 U/L (34-104); Anion Gap 13 (3-11); Aspartate Aminotransferase 9 U/L (13-39); BUN Creatinine Ratio 10.5 (10-20); Bilirubin,Total 0.5 mg/dl (0.2-1.0); Blood Urea Nitrogen 99 mg/dl (6-23); Calcium 6.5 mg/dl (8.6-10.3); Carbon Dioxide 28 mmol/L (21-32); Chloride 99 mmol/L (98-107); Globulin 2.6 gm/dl (2.5-4.0); Glucose 195 mg/dl (70-99(Fasting)); Lipase 36 U/L (11-82); Potassium 4.4 mmol/L (3.5-5.1); Sodium 140 mmol/L (136-145)
[2024-08-28] MEDS: PANTOprazole 40 MG in DEXTROSE 5% MINI-B 100 ML IV SCH (13:26)
[2024-08-28 13:42] LABS: INR 1.1 (0.9-1.1); Partial Thromboplastin Time 28 Seconds (21-31); Prothrombin Time 11.9 Seconds (9.0-12.0)
--- NOTE | 2024-08-28 13:42 | Critical Care Consultation ---
Date of Consultation August 28, 2024 Assessment & Plan (1) Acute GI bleeding: Reason Critically Ill: 78-year-old male with exertional dyspnea with acute GI bleeding PLAN: Resp: Acute hypoxic respiratory failure - Patient now on supplemental oxygen he qualified for on previous admission - Encourage follow-up with pulmonary versus primary care doc - Echo to ensure no [id number] shunting versus CV: History atrial fibrillation with rapid ventricular response - On discharge patient was started on oral amiodarone, transitioned to Eliquis for at least 30 days given episode of atrial fibrillation mentations for continuing PT for GI protection - Not withstanding a cardiology consult from May 2024 had the following plan: - TAVR procedure took place in 2019. Noted elevated transvalvular velocities on outpatient echocardiogram likely due to hyperdynamic left ventricular systolic function although prosthetic stenosis not excluded.Due to concerns of prosthetic thrombosis as a potential cause of accelerated velocities through the prosthesis, Coumadin started 10/21/2023, but this has not improved the velocities and therefore especially in the setting of anemia, patient will remain off anticoagulation at this time History of transcatheter aortic valve replacement (TAVR): - Obtain repeat echo as one of the initial indications for anticoagulation was possible prosthetic thrombosis with hope to decrease valve velocities History hypertension - Patient's prior BPs during hospitalization have been low, I suspect this is artifactual secondary to significant peripheral vascular disease - Patient on diuretic and finasteride: Will follow-up with nephrology unsure if either needed cyst given the patient on hemodialysis and could be clouding hemodynamic/cardiovascular picture Fluids/Renal: End-stage kidney disease (stage V) on hemodialysis Thursday - Nephrology consult ID: Concern for possible pneumonia which was recently treated as an inpatient - No indication for anti-infectives at this time GI/Nutrition: Gastrointestinal hemorrhage: I do not suspect rapid output at this point given H&H and lack of vital sign instability; however warrants invasive monitoring and ICU observation - Reviewed prior EGD from May - GI consult - Serial H&H every 8 hours, type and screen for 2 units Heme: Systemic anticoagulation for 30 days given recent atrial fibrillation competing priorities versus ongoing gastrointestinal bleeding - Given Kcentra from the emergency department for emergency reversal of anticoagulant and life-threatening bleeding DVT prophylaxis: Chemical prophylaxis contraindicated, SCDs Endocrine: ICU hyperglycemia protocol Hyperparathyroidism secondary to end-stage kidney disease - Underwent recent parathyroidectomy Vascular access: Right femoral triple-lumen and right femoral arterial line placed under sterile technique by emergency department August 28 Code Status: Full code - In brief discussion with patient and at bedside they are unaware of likelihood of successful resuscitation in the event of cardiac arrest. Given multiple comorbidities may benefit from discussion regarding goals of care. Disposition: ICU while evaluating gastrointestinal bleeding (2) Emphysema lung: (3) Pacemaker: (4) Atrial fibrillation with rapid ventricular response: (5) History of transcatheter aortic valve replacement (TAVR): (6) End-stage renal disease on hemodialysis: (7) CKD (chronic kidney disease) stage 5, GFR less than 15 ml/min: (8) CAD (coronary artery disease): Supervising Physician Co-Signing Physician Notes I have personally spent 35 minutes of critical care time in the direct management of this patient. This is a life/limb threatening event. This includes time spent evaluating patient, direct bedside care, chart review, placing orders, interpretation of diagnostic studies, discussion with consultants, patient, and/or family members regarding treatment decisions, as well as other required patient management activities. This time is exclusive of all separately billable procedures, and teaching time and separate from and in addition to any other critical care service time. History of Present Illness Reason for Consultation: Gastrointestinal bleeding Requesting Physician: Omkar History of Present Illness Patient is a 78 y/o male with a significant past medical history for Atrial fibrillation with rapid ventricular response who recently restarted Eliquis for presumptive stroke prophylaxis, end-stage kidney disease on hemodialysis Thursday, history of transcatheter aortic valve replacement, pacemaker. Patient presents to the emergency department today with fatigue and rectal bleeding. This has occurred once before approximately in May of this year when the patient underwent EGD. He has not undergone colonoscopy in recent past . Upon presentation to the ED hypotensive and given what was reported to be voluminous melanotic stools a central line and femoral arterial line were placed. Patient's hemodynamics are reassuring after placement of the arterial line, and review of prior records on the patient's last admission for which she was discharged 3 days ago he was routinely hypotensive per noninvasive blood pressure recordings, I suspect this is secondary to significant peripheral vascular disease in the setting of end-stage renal disease. Patient's labs today are also reassuring for given negative lactate no obvious evidence of hypoperfusion. Patient was recently admitted for possible severe sepsis secondary to healthcare associated pneumonia he is also recently postop from a parathyroidectomy. Per report he has not seen access control officer, does not carry a diagnosis of intrinsic lung disease; however, he had a previous diagnosis of hypoxic and hypercapnic respiratory failure. It is also noted there was concern of possible aortic valve obstruction versus hyperdynamic function. Allergies Allergy/AdvReac Type Severity Reaction Status Date / Time cephalexin Allergy Severe Tongue and Verified 08/21/24 20:53 face swelling tamsulosin Allergy Severe angioedema Verified 08/21/24 20:53 Home Medications Medication Instructions Recorded Confirmed Type atorvastatin 80 mg tablet 80 mg PO HS 07/01/22 08/28/24 History finasteride 5 mg tablet 5 mg PO DAILY 07/01/22 08/28/24 History vitamins no.144-folic 2 tab PO DAILY 06/08/24 08/28/24 History acid 400 mcg chewable tablet () torsemide 100 mg tablet 100 mg PO SuTuThSa@0900,2100 #32 06/16/24 08/28/24 Rx tabs calcitriol 0.25 mcg capsule 1 mcg PO BID 08/21/24 08/28/24 History calcium acetate(phosphat bind) 667 1,334 mg PO BID 08/21/24 08/28/24 History mg capsule lanthanum 750 mg chewable tablet 750 mg PO TIDWMEAL 08/21/24 08/28/24 History (Fosrenol) triamcinolone acetonide 0.1 % 1 applic topical BID PRN Itching 08/21/24 08/28/24 History topical cream apixaban 5 mg tablet (Eliquis) 5 mg PO BID 30 days #60 tabs 08/25/24 08/28/24 Rx midodrine 5 mg tablet 5 mg PO BID #60 tabs 08/25/24 08/28/24 Rx pantoprazole 40 mg tablet,delayed 40 mg PO DAILY #30 tabs 08/25/24 08/28/24 Rx release amiodarone 200 mg tablet 200 mg PO UD 08/28/24 08/28/24 History Patient History Medical History Anemia Gastric nodule Type 2 diabetes mellitus NIDDM Bifascicular block ongoing since 2010 Umbilical hernia chronic per patient-denies change or worsening History of blood transfusion pre-op aortic valve replacement CAD (coronary artery disease) s/p 1 stent in 2019 HTN (hypertension) controlled, stable per pt History of diverticulitis entered into EMR 09/2022-patient states last flare was 1 year ago History of colon polyps BPH (benign prostatic hyperplasia) CKD (chronic kidney disease), stage V Arthritis Hx of bladder cancer surgery only Hyperlipidemia Surgical History History of cataract surgery left and right H/O cystoscopy History of tooth extraction Aortic valve replaced 2019 at [facility] (followed by Dr. Wei) History of heart artery stent 1 stent placed 2018 History of orchiectomy, unilateral History of arthroscopy of left knee History of colonoscopy Family History Mother Family history of diabetes mellitus Father Family hx of colon cancer Other No family history of adverse response to anesthesia Social History Smoking Status: Former smoker Tobacco Type: Cigarettes Second Hand Exposure: No; Do You Dip or Chew Tobacco: No; Hx Alcohol Use: No Hx Substance Use: No Preferred Language: Maltese Communication Ability: Effective Cnc Grinder Required: No Beliefs That Will Affect Care: None Current Living Situation: Spouse Feels Safe at Home: Yes Assistive Devices: Cane Physical Exam Physical Exam: General: Alert. nontoxic. Skin: Warm, dry, Head: Atraumatic Ears, nose, mouth and throat: airway patent Cardiovascular: Normal peripheral perfusion Respiratory: no respiratory distress Rectum: External inspection with bedside nursing present, external hemorrhoids without thrombosis nor bleeding Gastrointestinal: Non distended Musculoskeletal: No deformity Results & Data Results & Data Vital Signs (Past 12 Hours) Vital Signs Temp Pulse Resp BP Pulse Ox O2 Del Method 08/28/24 13:41 36.5 C 73 20 105/41 L 99 08/28/24 12:10 80 08/28/24 11:48 36.8 C 83 19 76/42 L 94 Room Air Critical Care Results & Data Vital Signs (Past 12 Hours) Vital Signs Temp Pulse Resp BP Pulse Ox O2 Del Method 08/28/24 13:41 36.5 C 73 20 105/41 L 99 08/28/24 12:10 80 08/28/24 11:48 36.8 C 83 19 76/42 L 94 Room Air Lab & Micro Results (Past 24 Hours) RBC 2.47 M/uL (4.70-6.10) L 08/28/24 WBC 15.01 K/ul (4.8-10.8) H 08/28/24 Hgb 8.2 g/dl (14.0-18.0) L 08/28/24 Hct 25.3 % (42.0-52.0) L 08/28/24 MCV 102.4 fL (80.0-100.0) H 08/28/24 MCH 33.2 pg (25.0-34.0) 08/28/24 MCHC 32.4 g/dL (32.0-36.0) 08/28/24 RDW Standard Deviation 62.7 fL (36.4-46.3) H 08/28/24 RDW Coefficient of Variation 17.0 % (11.5-14.5) H 08/28/24 Plt Count 241 K/uL (130-400) 08/28/24 MPV 10.4 fL (9.4-12.4) 08/28/24 Nucleated Red Blood Cells % (auto) 0.1 % 08/28 Nucleated RBC Absolute Count (auto) 0.02 K/uL (0.00-0.12) 0 08/28/24 Neutrophils (%) (Auto) 75.3 % 08/28/24 Lymphocytes (%) (Auto) 8.8 % 08/28/24 Monocytes # (Auto) 1.33 K/uL (0.11-0.59) H 08/28/24 Eosinophils # (Auto) 0.58 K/uL (0.00-0.50) H 08/28/24 Immature Granulocyte % (Auto) 2.8 % 08/28/24 Neutrophils # (Auto) 11.32 K/uL (1.40-6.50) H 08/28/24 Lymphocytes # (Auto) 1.32 K/uL (1.20-3.40) 08/28/24 Monocytes # (Auto) 1.33 K/uL (0.11-0.59) H 08/28/24 Eosinophils # (Auto) 0.58 K/uL (0.00-0.50) H 08/28/24 Basophils # (Auto) 0.04 K/uL (0.00-0.20) 08/28/24 Immature Granulocyte # (Auto) 0.42 K/uL (0.01-0.20) H 08/28 Na 140 mmol/L (136-145) 08/28/24 K 4.4 mmol/L (3.5-5.1) 08/28/24 Cl 99 mmol/L (98-107) 08/28/24 CO2 28 mmol/L (21-32) 08/28/24 Anion Gap 13 (3-11) H 08/28/24 BUN 99 mg/dl (6-23) H 08/28/24 Creatinine 9.47 mg/dl (0.6-1.4) H* 08/28/24 BUN/Creatinine Ratio 10.5 (10-20) 08/28/24 Glu 195 mg/dl (70-99(Fasting)) H 08/28/24 Ca 6.5 mg/dl (8.6-10.3) L 08/28/24 Total Bilirubin 0.5 mg/dl (0.2-1.0) 08/28/24 AST 9 U/L (13-39) L 08/28/24 ALT 7 U/L (7-52) 08/28/24 Alkaline Phosphatase 120 U/L (34-104) H 08/28/24 TP 6.0 gm/dl (6.0-8.3) 08/28/24 Albumin 3.4 gm/dl (3.4-5.0) 08/28/24 Globulin 2.6 gm/dl (2.5-4.0) 08/28/24 Albumin/Globulin Ratio 1.3 (0.9-2) 08/28/24 Calcium Level 6.5 mg/dl (8.6-10.3) L 08/28/24 12:28 Prothromb Time International Ratio 1.1 (0.9-1.1) 08/28/24 12:2 8 I & O Totals 24 Hours 08/27/24 08/28/24 08/29/24 06:59 06:59 06:59 Intake Total 620 / 620 Balance 620 / 620 Cumulative 08/28/24 11:46 thru 08/28/24 13:46 Intake Total 620 Balance 620 RT Ventilator Mngmt (Last Documented) Ventilator Ordered Settings Respiratory Rate 20 08/28/24 13:41 Ventilator - PT Measurements Respiratory Rate 20 Coding Level of Care Code 56830 CRITICAL CARE 1ST 30-74M Diagnoses Acute GI bleeding K92.2 Pulmonary emphysema, unspecified emphysema type J43.9 Emphysema type: unspecified Pacemaker Z95.0 Atrial fibrillation with rapid ventricular response I48.91 History of transcatheter aortic valve replacement (TAVR) Z95.2 End-stage renal disease on hemodialysis N18.6; Z99.2 CKD (chronic kidney disease) stage 5, GFR less than 15 ml/min N18.5 CAD (coronary artery disease) I25.10 (2) Emphysema lung Emphysema type: unspecified Qualified Code(s): J43.9 - Emphysema, unspecified
[2024-08-28 13:49] LABS: ANTI-Xa, LMWH(Low Molecular Wt 1.09 IU/ML (< 0.10)
[2024-08-28 13:50] LABS: Fibrinogen 425 mg/dl (184-400)
[2024-08-28] MEDS: STAT IV/IM STA (13:53)
[2024-08-28] MEDS: PANTOPRAZOLE BOLUS/DRIP IV STA (13:53)
[2024-08-28 14:07] LABS: iSTAT Arterial Blood Gas HCO3 23 meg/L (19-24); iSTAT Arterial Blood Gas pCO2 37 mmHg (35-46); iSTAT Arterial Blood Gas pO2 87 mmHg (80-95); iSTAT Carbon Dioxide 24 mmol/L (24-31); iSTAT Hematocrit 21 % (42-52); iSTAT Hemoglobin 7.1 g/dl (14.0-18.0); iSTAT Potassium 4.1 mmol/L (3.3-5.0); iSTAT Sodium 137 mmol/L (135-144)
--- NOTE | 2024-08-28 14:21 | History & Physical Report ---
Date of Service August 28, 2024 Assessment & Plan (1) Acute GI bleeding: (2) Hypocalcemia: Plan Upper GI bleed History of atrial fibrillation on Eliquis Patient presents with melena and bright red blood per rectum for last 3 days. Recently started on Eliquis; last dose on 08/27 in am as per patient Hemoglobin down trended from 9.2 on 08/25 -8.2 on presentation Anti-Xa of 1.09 IU/mL Lactate within normal limits Status post Kcentra in the ED History of endoscopy in June 10, 2024; linear erythema extending through the antrum to the pylorus; could be gastritis or possibly GAVE. Biopsy revealed gastric mucosa with chronic inflammation. Plan to be observed in ICU given low blood pressure. Transfuse hemoglobin as needed if less than 7. CBC every 6 hours Evaluated by GI; recommend observation. Will maintain n.p.o. status Continue Protonix drip Continue midodrine Hypocalcemia History of parathyroidectomy on 08/19/2024 Calcium on admission of 6.5; ionized calcium 0.81 Received calcium gluconate 1 g in ED Monitor for hypocalcemia; repeat calcium gluconate as needed while NPO Nephrology consulted. Continue calcitriol. Obtain PTH hormone and ionized calcium in a.m. Was recommended Tums E-X 1500 mg 3 times daily post-op; plan to start after diet is initiated. Elevated high sensitive troponin in setting of ESRD History of CAD Likely demand ischemia High sensitive troponin of 73 on admission; was previously 294 on 08/21 Patient denies any chest pain Will trend troponin Monitor on telemetry aspirin discontinued last admission; continue on Lipitor obtain echocardiogram History of atrial fibrillation-plan to continue amiodarone twice a day until 08/31; then switch over to once a day. Eliquis currently on hold. ESRD on HDnephrology consulted; MWF dialysis Hyperlipidemiacontinue Lipitor Type 2 diabetes mellituscontinue on insulin SSI Full code DVT prophylaxis SCDs for now Time critical spent evaluating patient, direct bedside care, chart review, placing orders, interpretation of diagnostic studies, discussion with consultants, patient, and family members, as well as other required patient management activities is 45 minutes Please note the above document was generated using voice recognition software. It may contain grammatical, syntax or spelling errors. Any formal questions or concerns about the content, text or information contained within the body of this dictation should be directly addressed to the provider for clarification History of Present Illness Chief Complaint: Melena for 3 days Primary Care Provider: Mike Maki MD History obtained from interview with the patient, patient's spouse, discussion with ED provider and chart review. Past medical history of CAD status post stent, aortic stenosis status post bioprosthetic valve, Mobitz type II status post pacemaker, hyperlipidemia, ESRD on hemodialysis, bladder cancer status postsurgery, type 2 diabetes mellitus, past tobacco use, possibly underlying COPD, hyperparathyroidism status post surgery on 08/19/2024 Last admission from 08/21/2024 to 08/25/2024 for pneumonia; was found to be in atrial fibrillation with RVR after dialysis on 08/22; started on amiodarone and Eliquis. Patient presents to the ED with concern of bright red blood per rectum, melena since 08/26. Patient started to get weaker in the last couple of days which prompted him to be come to the ED. He reports being dizzy on presentation; improved with IV resuscitation He denies any abdominal pain, chest pain, shortness of breath or urinary symptoms. On presentation to the ED, he was hypotensive, afebrile and saturating well on room air. Hemoglobin was 8.2 on admission; was 9.2 on 08/25/2024. Patient was given IV fluid; central line and art line was placed. ICU and GI was consulted; patient to be admitted to ICU for observation Allergies Allergy/AdvReac Type Severity Reaction Status Date / Time cephalexin Allergy Severe Tongue and Verified 08/21/24 20:53 face swelling tamsulosin Allergy Severe angioedema Verified 08/21/24 20:53 Home Medications Medication Instructions Recorded Confirmed Type atorvastatin 80 mg tablet 80 mg PO HS 07/01/22 08/28/24 History finasteride 5 mg tablet 5 mg PO DAILY 07/01/22 08/28/24 History vitamins no.144-folic 2 tab PO DAILY 06/08/24 08/28/24 History acid 400 mcg chewable tablet () torsemide 100 mg tablet 100 mg PO SuTuThSa@0900,2100 #32 06/16/24 08/28/24 Rx tabs calcitriol 0.25 mcg capsule 1 mcg PO BID 08/21/24 08/28/24 History calcium acetate(phosphat bind) 667 1,334 mg PO BID 08/21/24 08/28/24 History mg capsule lanthanum 750 mg chewable tablet 750 mg PO TIDWMEAL 08/21/24 08/28/24 History (Fosrenol) triamcinolone acetonide 0.1 % 1 applic topical BID PRN Itching 08/21/24 08/28/24 History topical cream apixaban 5 mg tablet (Eliquis) 5 mg PO BID 30 days #60 tabs 08/25/24 08/28/24 Rx midodrine 5 mg tablet 5 mg PO BID #60 tabs 08/25/24 08/28/24 Rx pantoprazole 40 mg tablet,delayed 40 mg PO DAILY #30 tabs 08/25/24 08/28/24 Rx release amiodarone 200 mg tablet 200 mg PO UD 08/28/24 08/28/24 History Past Med/Surg History Problem List (Updated 08/28/24 @ 14:07 by Gaurang Aguilera DO) Hypocalcemia (Acute) Melena (Acute) Acute GI bleeding (Acute) Emphysema lung Pacemaker Atrial fibrillation with rapid ventricular response Severe sepsis Pneumonia (Acute) Second degree AV block 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 History of transcatheter aortic valve replacement (TAVR) Rectal bleeding Symptomatic anemia ESRD on dialysis (Acute) GI bleed (Acute) Anemia (Acute) End-stage renal disease on hemodialysis Acidosis Hypoxia (Acute) Respiratory acidosis Metabolic encephalopathy Anticoagulated on Coumadin Multifocal pneumonia Acute respiratory failure with hypoxia and hypercapnia Diverticulitis of ascending colon UTI (urinary tract infection) Urinary tract infection due to Pseudomonas aeruginosa (Acute) CKD (chronic kidney disease) stage 5, GFR less than 15 ml/min (Acute) Colon polyps Encounter for pre-operative examination BPH (benign prostatic hyperplasia) Hypertension 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 " On 04/03/11 18:15 Norma Vargas wrote "with outflow obstruction " On 04/03/11 18:15 Norma Vargas wrote "with outflow obstruction " On 04/03/11 18:15 Norma Vargas wrote "with outflow obstruction " Absent renal function (04/03/11) Medical History Anemia Gastric nodule Type 2 diabetes mellitus NIDDM Bifascicular block ongoing since 2010 Umbilical hernia chronic per patient-denies change or worsening History of blood transfusion pre-op aortic valve replacement CAD (coronary artery disease) s/p 1 stent in 2019 HTN (hypertension) controlled, stable per pt History of diverticulitis entered into EMR 09/2022-patient states last flare was 1 year ago History of colon polyps BPH (benign prostatic hyperplasia) CKD (chronic kidney disease), stage V Arthritis Hx of bladder cancer surgery only Hyperlipidemia Surgical History History of cataract surgery left and right H/O cystoscopy History of tooth extraction Aortic valve replaced 2019 at [facility] (followed by Dr. Wei) History of heart artery stent 1 stent placed 2018 History of orchiectomy, unilateral History of arthroscopy of left knee History of colonoscopy Family History Mother Family history of diabetes mellitus Father Family hx of colon cancer Other No family history of adverse response to anesthesia Social History Smoking Status: Former smoker Tobacco Type: Cigarettes Second Hand Exposure: No; Do You Dip or Chew Tobacco: No; Hx Alcohol Use: No Hx Substance Use: No Preferred Language: Icelandic Communication Ability: Effective Model Home Sales Greeter Required: No Beliefs That Will Affect Care: None Current Living Situation: Spouse Feels Safe at Home: Yes Assistive Devices: Cane Physical Exam Physical Exam: On physical examination; Constitutional: Alert oriented x 3; not in distress. Respiratory: Bilateral vesicular breath sound. Cardiovascular: RRR, no murmur, no edema Vessels: no JVD or carotid bruit Chest: normal inspection of chest Abdomen: Soft, nontender. Musculoskeletal: no cyanosis or clubbing, extremities motor strength 5/5 Skin: no rashes, warm and dry normal turgor Neurologic: PERRL, EOMI, accommodation nl, no face palsy, no dysarthria CN's II- XI intact bilaterally and moves all extremities Results & Data Results & Data Vital Signs (Past 12 Hours) Vital Signs Temp Pulse Resp BP Pulse Ox O2 Del Method 08/28/24 14:01 36.6 C 71 18 102/44 L 100 08/28/24 13:41 36.5 C 73 20 105/41 L 99 08/28/24 12:10 80 08/28/24 11:48 36.8 C 83 19 76/42 L 94 Room Air
[2024-08-28] MEDS: CALCIUM GLUCONATE 1,000 MG/60 ML BAG IV STA (14:38)
[2024-08-28] MEDS ORDERED: GLUCOSE 10 TAB/TUBE PO PRN (15:00)
[2024-08-28] MEDS ORDERED: DEXTROSE 50% 50 ML SYRINGE IV PRN (15:00)
[2024-08-28] MEDS ORDERED: CARBOHYDRATES FOR HYPOGLYCEMIA PO PRN (15:00)
[2024-08-28] MEDS ORDERED: GLUCAGON FOR INJ 1 MG VIAL SQ PRN (15:00)
[2024-08-28] MEDS ORDERED: GLUCOSE 40% GEL 15 GM TUBE PO PRN (15:00)
[2024-08-28] MEDS ORDERED: Nursing to Pharmacy Communication SCH (15:15)
[2024-08-28] MEDS: ICU Protocol for HYPERglycemia SCH (16:04)
[2024-08-28 16:09] LABS: Appearance Urine Cloudy (Clear); Bacteria Urine Automated 1+ (None Seen); Bilirubin Urine Negative (Negative); Blood Urine 1+ (Negative); Color Urine Yellow; Epithelial Cell Urine Auto 0-2 /hpf (0-2); Glucose Urine UA Negative (Negative); Ketones Urine Negative (Negative); Leukocyte Esterase Urine 3+ (Negative); Nitrite Urine Negative (Negative); Protein Urine 2+ (Negative); RBC Urine Automated 0-2 /hpf (0-2); Specific Gravity Urine 1.012 (1.000-1.030); Urobilinogen Urine Negative (Negative); WBC Urine Automated >50 /hpf (0-5); pH Urine 5.5 (4.5-7.5)
[2024-08-28] MEDS ORDERED: INSULIN ASPART PER UNIT CHARGE SC SCH (16:30)
[2024-08-28] MEDS: CALCIUM ACETATE 667 MG CAP/TAB PO SCH (17:12)
[2024-08-28] MEDS: INSULIN ASPART PER UNIT CHARGE SC SCH (17:12)
[2024-08-28] MEDS: MIDODRINE HCL 2.5 MG TAB PO SCH (17:14)
[2024-08-28 17:27] LABS: Hemoglobin 8.3 g/dl (14.0-18.0)
[2024-08-28 17:45] LABS: BUN Creatinine Ratio 10.3 (10-20); Creatinine Clr Calc Pharmacy 6.7 ml/min; Potassium 4.2 mmol/L (3.5-5.1)
[2024-08-28 17:48] LABS: Basophils # (auto) 0.02 K/uL (0.00-0.20); Basophils % (auto) 0.1 %; Eosinophils # (auto) 0.56 K/uL (0.00-0.50); Hematocrit (blood only) 24.8 % (42.0-52.0); Hemoglobin 8.1 g/dl (14.0-18.0); Immature Granulocytes # (auto) 0.38 K/uL (0.01-0.20); Immature Granulocytes % (auto) 2.7 %; Lymphocytes # (auto) 1.64 K/uL (1.20-3.40); Lymphocytes % (auto) 11.6 %; Mean Corpuscular Hemoglobin 31.9 pg (25.0-34.0); Mean Corpuscular Hgb Conc 32.7 g/dL (32.0-36.0); Mean Corpuscular Volume 97.6 fL (80.0-100.0); Mean Platelet Volume 10.6 fL (9.4-12.4); Monocytes # (auto) 1.48 K/uL (0.11-0.59); Monocytes % (auto) 10.5 %; Neutrophils # (auto) 10.02 K/uL (1.40-6.50); Neutrophils % (auto) 71.1 %; Platelet Count 206 K/uL (130-400); RDW Coefficient of Variation 18.9 % (11.5-14.5); RDW Standard Deviation 66.4 fL (36.4-46.3); Red Blood Count 2.54 M/uL (4.70-6.10)
[2024-08-28] MEDS: CALCIUM GLUCONATE 1,000 MG/60 ML BAG IV SCH (19:37)
[2024-08-28] MEDS: ATORVASTATIN 40 MG TAB PO SCH (20:31)
[2024-08-28] MEDS: TRIAMCINOLONE ACET 0.1% CR 15 GM TUBE TOP PRN (20:32)
[2024-08-28] MEDS: CALCITRIOL 0.25 MCG CAPSULE PO SCH (20:32)
[2024-08-28] MEDS: AMIODARONE 200 MG TAB PO SCH (21:03)
[2024-08-28] MEDS: 4.5GM X1 IV STA (23:53)
[2024-08-29 04:21] LABS: Basophils # (auto) 0.04 K/uL (0.00-0.20); Basophils % (auto) 0.3 %; Eosinophils # (auto) 0.67 K/uL (0.00-0.50); Eosinophils % (auto) 4.7 %; Hematocrit (blood only) 27.4 % (42.0-52.0); Immature Granulocytes # (auto) 0.43 K/uL (0.01-0.20); Lymphocytes # (auto) 1.77 K/uL (1.20-3.40); Lymphocytes % (auto) 12.3 %; Mean Corpuscular Hemoglobin 31.3 pg (25.0-34.0); Mean Corpuscular Hgb Conc 32.8 g/dL (32.0-36.0); Mean Corpuscular Volume 95.1 fL (80.0-100.0); Mean Platelet Volume 10.1 fL (9.4-12.4); Monocytes # (auto) 1.59 K/uL (0.11-0.59); Neutrophils % (auto) 68.7 %; Platelet Count 188 K/uL (130-400); RDW Coefficient of Variation 19.2 % (11.5-14.5); RDW Standard Deviation 65.6 fL (36.4-46.3); Red Blood Count 2.88 M/uL (4.70-6.10)
[2024-08-29] MEDS ORDERED: STAT IV Infusion **Titration per Protocol STA (04:43)
[2024-08-29 04:46] LABS: Albumin Globulin Ratio 1.7 (0.9-2); Albumin Level 2.4 gm/dl (3.4-5.0); BUN Creatinine Ratio 10.3 (10-20); Bilirubin,Total 0.5 mg/dl (0.2-1.0); Calcium 4.2 mg/dl (8.6-10.3); Creatinine Clr Calc Pharmacy 8.9 ml/min; Globulin 1.4 gm/dl (2.5-4.0); INR 1.1 (0.9-1.1); Magnesium 1.3 mg/dl (1.7-2.4); Phosphorus 3.7 mg/dl (2.5-4.9); Potassium 3.1 mmol/L (3.5-5.1); Prothrombin Time 11.6 Seconds (9.0-12.0); Total Protein 3.8 gm/dl (6.0-8.3)
[2024-08-29] MEDS: NOREPINEPHRINE/D5W 4 MG/250 ML IV ONE (04:47)
[2024-08-29] MEDS: NOREPINEPHRINE/D5W 4 MG/250 ML PLCT IV SCH (04:48)
[2024-08-29] MEDS: MAGNESIUM SULFATE / D5W 1 GM/100 ML BAG IV SCH (05:15)
[2024-08-29] MEDS: CALCIUM CHLORIDE 10% 1,000 MG in DEXTROSE 5% 50 ML IV STA ×4 (05:17→23:59)
[2024-08-29] MEDS: POTASSIUM CHLORIDE CRTAB 20 MEQ TABCR PO STA (05:18)
--- NOTE | 2024-08-29 05:18 | Communication Note ---
Date of Service: August 29, 2024 Patient hypotensive this morning 70/30s and 80s/40s- no blood loss and mentating well. Review of his labs shows multiple electrolyte abnormalities most notably his CA and iCA- which at this time is likely the cause as his iCA is 0.4 - Patient with history of parathyroidectomy 08/19/24- - His PO4 is 3 this so will replete CA - His relatively low level of CA likely exacerbated at this time by citrate in blood, low magnesium level - Replete Mag- 4 grams - Replete CA - 2 GRAM CACL - He will likely need increased oral supplementation as well- he is currently on Phoslo, cacitriol- defer to Nephrology - Levophed initiated until electrolytes can start being replaced- responded well to low dose- wean as able- HGB levels are stable and no further evidence of bleeding noted. - He was also initiated on Zosyn overnight for possible UTI/sepsis Guero MENSAH ([facility]
--- NOTE | 2024-08-29 08:13 | Critical Care Progress Note ---
Date of Service August 29, 2024 Assessment & Plan (1) Acute GI bleeding: Plan: Reason Critically Ill: 78-year-old male with exertional dyspnea with acute GI bleeding PLAN: Laryngitis - Postop day 10 from parathyroidectomy - Patient receiving contrast for diagnostic CT of the chest after discussion with nephrology does not need additional contrast given he has some residual renal function - Nephrology to discuss with surgeon who performed procedure (not at this hospital) noncontrast CT scan of minimal diagnostic utility in postoperative setting would likely benefit most from direct visualization - If patient undergoing EGD might be able to visualize tissues not withstanding, we do not have ear nose and throat availability at this institution Resp: Acute hypoxic respiratory failure - Patient now on supplemental oxygen he qualified for on previous admission - Encourage follow-up with pulmonary versus primary care doc - Echo to ensure no [id number] shunting versus - CT chest with contrast for ongoing hypoxia CV: History atrial fibrillation with rapid ventricular response - On discharge patient was started on oral amiodarone, transitioned to Eliquis for at least 30 days given episode of atrial fibrillation mentations for continuing PT for GI protection - Not withstanding a cardiology consult from May 2024 had the following plan: - TAVR procedure took place in 2019. Noted elevated transvalvular velocities on outpatient echocardiogram likely due to hyperdynamic left ventr icular systolic function although prosthetic stenosis not excluded.Due to concerns of prosthetic thrombosis as a potential cause of accelerated velocities through the prosthesis, Coumadin started 10/21/2023, but this has not improved the velocities and therefore especially in the setting of anemia, patient will remain off anticoagulation at this time History of transcatheter aortic valve replacement (TAVR): Awaiting echo report - Obtain repeat echo as one of the initial indications for anticoagulation was possible prosthetic thrombosis with hope to decrease valve velocities History hypertension: May need to revisit once calcium levels stabilize - Patient's prior BPs during hospitalization have been low, I suspect this is artifactual secondary to significant peripheral vascular disease and significant hypocalcemia - Patient on diuretic and finasteride: Will follow-up with nephrology unsure if either needed given the patient on hemodialysis and could be clouding hemodynamic/cardiovascular picture Fluids/Renal: End-stage kidney disease (stage V) on hemodialysis Thursday - Discussed with nephrology today ID: Concern for possible pneumonia which was recently treated as an inpatient -Initiated Zosyn for possible urinary tract infection - Prior pseudomonal infection GI/Nutrition: Gastrointestinal hemorrhage: I do not suspect rapid output at this point given H&H and lack of vital sign instability - Reviewed prior EGD from May - GI consult -Received 2 units secondary to symptomatology however, should improve with correction of calcium Heme: Systemic anticoagulation for 30 days given recent atrial fibrillation competing priorities versus ongoing gastrointestinal bleeding - Given Kcentra from the emergency department for emergency reversal of anticoagulant and life-threatening bleeding DVT prophylaxis: Chemical prophylaxis contraindicated, SCDs Endocrine: ICU hyperglycemia protocol Hyperparathyroidism secondary to end-stage kidney disease - Underwent recent parathyroidectomy Postsurgical hypoparathyroidism and hypocalcemia - Aggressive calcium repletion Vascular access: Right femoral triple-lumen and right femoral arterial line placed under sterile technique by emergency department August 28 Code Status: Full code - In brief discussion with patient and at bedside they are unaware of likelihood of successful resuscitation in the event of cardiac arrest. Given multiple comorbidities may benefit from discussion regarding goals of care. Disposition: ICU while requiring vasoactive's which should resolve once calcium corrected. (2) Emphysema lung: (3) Pacemaker: (4) Atrial fibrillation with rapid ventricular response: (5) History of transcatheter aortic valve replacement (TAVR): (6) End-stage renal disease on hemodialysis: (7) CKD (chronic kidney disease) stage 5, GFR less than 15 ml/min: (8) CAD (coronary artery disease): Admission and Anticipated Discharge Date Admission Date: August 28, 2024 Supervising Physician Co-Signing Physician Notes I have personally spent 70 minutes of critical care time in the direct ma nagement of this patient. This is a life/limb threatening event. This includes time spent evaluating patient, direct bedside care, chart review, placing orders, interpretation of diagnostic studies, discussion with consultants, patient, and/or family members regarding treatment decisions, as well as other required patient management activities. This time is exclusive of all separately billable procedures, and teaching time and separate from and in addition to any other critical care service time. Subjective complaining of throat pain. Physical Exam Physical Exam: General: Alert. nontoxic. Skin: Warm, dry, Head: Atraumatic Ears, nose, mouth and throat: airway patent, no obvious intraoral findings to explain sore throat and reported laryngitis Cardiovascular: Normal peripheral perfusion Respiratory: no respiratory distress Gastrointestinal: Non distended Musculoskeletal: No deformity Results & Data Results & Data Vital Signs (Past 12 Hours) Vital Signs Temp Pulse Resp BP BP Pulse Ox Pulse Ox 08/29/24 08:01 92 08/29/24 08:01 08/29/24 07:45 20 93 08/29/24 07:42 96 H 22 95 08/29/24 07:15 77 20 93 08/29/24 07:09 78 21 96 08/29/24 07:00 36.8 C 08/29/24 06:45 77 24 95 08/29/24 06:30 76 24 96 08/29/24 06:15 78 21 96 08/29/24 06:08 96 08/29/24 06:00 110/60 08/29/24 05:48 55 L 21 80 L 08/29/24 05:30 70 23 90 08/29/24 05:09 67 20 91 08/29/24 05:05 118/43 L 08/29/24 04:51 105/42 L 08/29/24 04:36 65 22 91 08/29/24 04:34 65 22 83/36 L 91 08/29/24 04:34 83/36 L 08/29/24 04:31 64/33 L 08/29/24 04:28 80/29 L 08/29/24 04:23 71/26 L 08/29/24 04:00 95/42 L 08/29/24 03:00 69 26 H 94/47 L 91 08/29/24 02:34 37 C 67 22 96/42 L 92 08/29/24 02:06 36.7 C 67 23 90/39 L 90 08/29/24 01:06 37.1 C 69 25 H 90/38 L 91 08/29/24 00:06 36.9 C 70 18 92/38 L 91 08/29/24 00:00 70 08/28/24 23:36 36.9 C 70 27 H 91/39 L 92 08/28/24 23:21 37.0 C 71 23 96/41 L 91 08/28/24 23:05 37.1 C 71 22 97/42 L 96 08/28/24 22:12 71 24 105/46 L 90 08/28/24 21:03 68 24 92 08/28/24 21:00 86/34 L O2 Del Method O2 Del Method O2 Flow Rate O2 Flow Rate 08/29/24 08:01 Nasal Cannula 2 08/29/24 08:01 Room Air 08/29/24 07:45 08/29/24 07:42 08/29/24 07:15 08/29/24 07:09 08/29/24 07:00 08/29/24 06:45 08/29/24 06:30 08/29/24 06:15 Nasal Cannula 2 08/29/24 06:08 Nasal Cannula 2 08/29/24 06:00 08/29/24 05:48 08/29/24 05:30 08/29/24 05:09 08/29/24 05:05 08/29/24 04:51 08/29/24 04:36 Room Air 08/29/24 04:34 Room Air 08/29/24 04:34 08/29/24 04:31 08/29/24 04:28 08/29/24 04:23 08/29/24 04:00 08/29/24 03:00 Room Air 08/29/24 02:34 08/29/24 02:06 08/29/24 01:06 08/29/24 00:06 08/29/24 00:00 08/28/24 23:36 08/28/24 23:21 08/28/24 23:05 0 08/28/24 22:12 Room Air 08/28/24 21:03 Room Air 08/28/24 21:00 Critical Care Results & Data Vital Signs (Past 12 Hours) Vital Signs Temp Pulse Resp BP BP Pulse Ox Pulse Ox 08/29/24 08:01 92 08/29/24 08:01 08/29/24 07:45 20 93 08/29/24 07:42 96 H 22 95 08/29/24 07:15 77 20 93 08/29/24 07:09 78 21 96 08/29/24 07:00 36.8 C 08/29/24 06:45 77 24 95 08/29/24 06:30 76 24 96 08/29/24 06:15 78 21 96 08/29/24 06:08 96 08/29/24 06:00 110/60 08/29/24 05:48 55 L 21 80 L 08/29/24 05:30 70 23 90 08/29/24 05:09 67 20 91 08/29/24 05:05 118/43 L 08/29/24 04:51 105/42 L 08/29/24 04:36 65 22 91 08/29/24 04:34 65 22 83/36 L 91 08/29/24 04:34 83/36 L 08/29/24 04:31 64/33 L 08/29/24 04:28 80/29 L 08/29/24 04:23 71/26 L 08/29/24 04:00 95/42 L 08/29/24 03:00 69 26 H 94/47 L 91 08/29/24 02:34 37 C 67 22 96/42 L 92 08/29/24 02:06 36.7 C 67 23 90/39 L 90 08/29/24 01:06 37.1 C 69 25 H 90/38 L 91 08/29/24 00:06 36.9 C 70 18 92/38 L 91 08/29/24 00:00 70 08/28/24 23:36 36.9 C 70 27 H 91/39 L 92 08/28/24 23:21 37.0 C 71 23 96/41 L 91 08/28/24 23:05 37.1 C 71 22 97/42 L 96 08/28/24 22:12 71 24 105/46 L 90 08/28/24 21:03 68 24 92 08/28/24 21:00 86/34 L O2 Del Method O2 Del Method O2 Flow Rate O2 Flow Rate 08/29/24 08:01 Nasal Cannula 2 08/29/24 08:01 Room Air 08/29/24 07:45 08/29/24 07:42 08/29/24 07:15 08/29/24 07:09 08/29/24 07:00 08/29/24 06:45 08/29/24 06:30 08/29/24 06:15 Nasal Cannula 2 08/29/24 06:08 Nasal Cannula 2 08/29/24 06:00 08/29/24 05:48 08/29/24 05:30 08/29/24 05:09 08/29/24 05:05 08/29/24 04:51 08/29/24 04:36 Room Air 08/29/24 04:34 Room Air 08/29/24 04:34 08/29/24 04:31 08/29/24 04:28 08/29/24 04:23 08/29/24 04:00 08/29/24 03:00 Room Air 08/29/24 02:34 08/29/24 02:06 08/29/24 01:06 08/29/24 00:06 08/29/24 00:00 08/28/24 23:36 08/28/24 23:21 08/28/24 23:05 0 08/28/24 22:12 Room Air 08/28/24 21:03 Room Air 08/28/24 21:00 Lab & Micro Results (Past 24 Hours) RBC 2.85 M/uL (4.70-6.10) L 08/29/24 WBC 16.12 K/ul (4.8-10.8) H 08/29/24 Hgb 9.0 g/dl (14.0-18.0) L 08/29/24 Hct 27.1 % (42.0-52.0) L 08/29/24 MCV 95.1 fL (80.0-100.0) 08/29/24 MCH 31.6 pg (25.0-34.0) 08/29/24 MCHC 33.2 g/dL (32.0-36.0) 08/29/24 RDW Standard Deviation 65.9 fL (36.4-46.3) H 08/29/24 RDW Coefficient of Variation 19.2 % (11.5-14.5) H 08/29/24 Plt Count 208 K/uL (130-400) 08/29/24 MPV 10.4 fL (9.4-12.4) 08/29/24 Nucleated Red Blood Cells % (auto) 0.1 % 08/28 Nucleated RBC Absolute Count (auto) 0.02 K/uL (0.00-0.12) 0 08/28/24 Neutrophils (%) (Auto) 72.0 % 08/29/24 Lymphocytes (%) (Auto) 9.8 % 08/29/24 Monocytes # (Auto) 1.68 K/uL (0.11-0.59) H 08/29/24 Eosinophils # (Auto) 0.66 K/uL (0.00-0.50) H 08/29/24 Immature Granulocyte % (Auto) 3.4 % 08/29/24 Neutrophils # (Auto) 11.60 K/uL (1.40-6.50) H 08/29/24 Lymphocytes # (Auto) 1.58 K/uL (1.20-3.40) 08/29/24 Monocytes # (Auto) 1.68 K/uL (0.11-0.59) H 08/29/24 Eosinophils # (Auto) 0.66 K/uL (0.00-0.50) H 08/29/24 Basophils # (Auto) 0.05 K/uL (0.00-0.20) 08/29/24 Immature Granulocyte # (Auto) 0.55 K/uL (0.01-0.20) H 08/29 Na 141 mmol/L (136-145) 08/29/24 K 3.1 mmol/L (3.5-5.1) L 08/29/24 Cl 114 mmol/L (98-107) H 08/29/24 CO2 17 mmol/L (21-32) L 08/29/24 Anion Gap 10 (3-11) 08/29/24 BUN 76 mg/dl (6-23) H 08/29/24 Creatinine 7.40 mg/dl (0.6-1.4) H* 08/29/24 BUN/Creatinine Ratio 10.3 (10-20) 08/29/24 Glu 75 mg/dl (70-99(Fasting)) 08/29/24 Ca 4.2 mg/dl (8.6-10.3) L* 08/29/24 Phosphorus Level 3.7 mg/dl (2.5-4.9) 08/29/24 Total Bilirubin 0.5 mg/dl (0.2-1.0) 08/29/24 AST 7 U/L (13-39) L 08/29/24 ALT 5 U/L (7-52) L 08/29/24 Alkaline Phosphatase 81 U/L (34-104) 08/29/24 TP 3.8 gm/dl (6.0-8.3) L 08/29/24 Albumin 2.4 gm/dl (3.4-5.0) L 08/29/24 Globulin 1.4 gm/dl (2.5-4.0) L 08/29/24 Albumin/Globulin Ratio 1.7 (0.9-2) 08/29/24 Mg 1.3 mg/dl (1.7-2.4) L 08/29/24 04:03 Calcium Level 4.2 mg/dl (8.6-10.3) L* 08/29/24 04:03 Ionized Calcium 0.97 mmol/L (1.12-1.32) L 08/29/24 08:23 Prothromb Time International Ratio 1.1 (0.9-1.1) 08/29/24 04:0 3 I & O Totals 24 Hours 08/28/24 08/29/24 08/30/24 06:59 06:59 06:59 Intake Total 2022.641 / 2022.641 128.367 / 128.367 Output Total 300 / 300 150 / 150 Balance 1722.641 / 1722.641 -21.633 / -21.633 Cumulative 08/28/24 11:46 thru 08/29/24 08:00 Intake Total 2151.008 Output Total 450 Balance 1701.008 RT Ventilator Mngmt (Last Documented) Ventilator Ordered Settings Respiratory Rate 20 08/29/24 07:45 Ventilator - PT Measurements Respiratory Rate 20 Coding Level of Care Code 10134 CRITICAL CARE 1ST 30-74M Diagnoses Acute GI bleeding K92.2 Pulmonary emphysema, unspecified emphysema type J43.9 Emphysema type: unspecified Pacemaker Z95.0 Atrial fibrillation with rapid ventricular response I48.91 History of transcatheter aortic valve replacement (TAVR) Z95.2 End-stage renal disease on hemodialysis N18.6; Z99.2 CKD (chronic kidney disease) stage 5, GFR less than 15 ml/min N18.5 CAD (coronary artery disease) I25.10 (2) Emphysema lung Emphysema type: unspecified Qualified Code(s): J43.9 - Emphysema, unspecified
[2024-08-29] MEDS: PIPERACILLIN/TAZOBACTAM 4.5 GM/100 ML BAG IV SCH (08:40)
[2024-08-29] MEDS: PRENATAL VITAMIN 1 TAB PO SCH (08:42)
[2024-08-29 08:48] LABS: Basophils # (auto) 0.05 K/uL (0.00-0.20); Basophils % (auto) 0.3 %; Eosinophils # (auto) 0.66 K/uL (0.00-0.50); Eosinophils % (auto) 4.1 %; Hematocrit (blood only) 27.1 % (42.0-52.0); Immature Granulocytes # (auto) 0.55 K/uL (0.01-0.20); Immature Granulocytes % (auto) 3.4 %; Lymphocytes # (auto) 1.58 K/uL (1.20-3.40); Lymphocytes % (auto) 9.8 %; Mean Corpuscular Hemoglobin 31.6 pg (25.0-34.0); Mean Corpuscular Hgb Conc 33.2 g/dL (32.0-36.0); Mean Corpuscular Volume 95.1 fL (80.0-100.0); Mean Platelet Volume 10.4 fL (9.4-12.4); Monocytes # (auto) 1.68 K/uL (0.11-0.59); Monocytes % (auto) 10.4 %; Platelet Count 208 K/uL (130-400); RDW Coefficient of Variation 19.2 % (11.5-14.5); RDW Standard Deviation 65.9 fL (36.4-46.3); Red Blood Count 2.85 M/uL (4.70-6.10); White Blood Count 16.12 K/ul (4.8-10.8)
[2024-08-29] MEDS: LANTHANUM 750 MG PO SCH (08:50)
[2024-08-29] MEDS ORDERED: PANTOprazole 40 MG TAB PO SCH (09:00)
[2024-08-29] MEDS: FINASTERIDE 5 MG TAB PO SCH (10:03)
[2024-08-29] MEDS: OPTIRAY 320 100ml IV ONE (10:52)
--- NOTE | 2024-08-29 11:06 | Electrocardiogram Report ---
Test Reason : Blood Pressure : */* mmHG Vent. Rate : 76 BPM Atrial Rate : 76 BPM P-R Int : 176 ms QRS Dur : 128 ms QT Int : 458 ms P-R-T Axes : 56 92 39 degrees QTcB Int : 515 ms Sinus rhythm Right bundle branch block Abnormal ECG When compared with ECG of 25-Aug-2024 05:19, Fusion complexes are now Present PA interval has decreased Confirmed by Wagner Angeles ([id number]) on 08/29/2024 11:05:57 AM Referred By: REFERRED SELF Confirmed By: Wagner Angeles
--- NOTE | 2024-08-29 11:39 | CT Scan Report ---
CHEST CT WITH CONTRAST CT DOSE: 1076.27 mGy.cm HISTORY: Acute hypoxia with renal failure hypoxia TECHNIQUE: Multiaxial CT images of the chest were performed following the IV administration of 94 cc of Optiray. A dose lowering technique was utilized adhering to the principles of ALARA. COMPARISON: CTA chest 08/21/2024, CT abdomen and pelvis 06/08/2024. FINDINGS: Subcentimeter hypodense left thyroid nodule with left thyroid calcification. No pathologica lly enlarged lymph nodes identified. Nonspecific deep tissue edema within the superior mediastinum in ferior to the thyroid with adjacent surgical clips. Additional edema is noted within the adjacent ant erior midline tissues, unchanged. Moderate cardiomegaly with extensive coronary artery calcifications and prosthetic aortic valve. Righ t atrial and right ventricular electronic devices are present in this patient with history of prior l eadless dual chamber pacemaker insertion. No thoracic aortic aneurysm or pulmonary embolus identified . Trace pleural effusions. Moderate emphysema. Scattered calcified pulmonary granulomata. Dependent sub segmental bibasilar atelectasis. There is improved aeration of the right lower lobe. 2.3 cm consolida tion within the superior segment right lower lobe on image 103 series 4 previously measured approxima tely 3 cm. Mild persistent right basilar patchy consolidation. 1.37 mm groundglass density of the delbert gula on image 117 series 4 may be atelectatic, infectious or inflammatory. Tracheobronchial secretion s. Cortical thinning of the kidneys with numerous bilateral cysts. Right hemidiaphragmatic elevation. Re tained contrast noted within the large bowel with colonic diverticulosis. Gynecomastia. No acute frac ture. IMPRESSION: 1. Emphysema with tracheobronchomalacia secretions and mucous plugging redemonstrated. 2. There is resolving pneumonia of the superior segment right lower lobe. Three-month follow-up chest CT recommended in order to document complete resolution. 3. Trace pleural effusions with mild dependent bibasilar atelectasis. There may also be a component o f mild interstitial pulmonary edema. 4. Unchanged mild nonspecific edema within the superior mediastinum, possibly post surgical. No discr ete fluid collections. 5. Additional findings as above. ACT 112: Negative or not required by law. Electronically signed by: Greyson Kline M.D. 08/29/2024 11:38 AM
[2024-08-29 12:01] LABS: Basophils # (auto) 0.03 K/uL (0.00-0.20); Basophils % (auto) 0.2 %; Eosinophils # (auto) 0.72 K/uL (0.00-0.50); Eosinophils % (auto) 4.8 %; Hematocrit (blood only) 26.9 % (42.0-52.0); Hemoglobin 8.8 g/dl (14.0-18.0); Immature Granulocytes # (auto) 0.43 K/uL (0.01-0.20); Immature Granulocytes % (auto) 2.9 %; Lymphocytes % (auto) 9.4 %; Mean Corpuscular Hemoglobin 31.5 pg (25.0-34.0); Mean Corpuscular Hgb Conc 32.7 g/dL (32.0-36.0); Mean Corpuscular Volume 96.4 fL (80.0-100.0); Mean Platelet Volume 10.5 fL (9.4-12.4); Monocytes # (auto) 1.56 K/uL (0.11-0.59); Monocytes % (auto) 10.5 %; Neutrophils # (auto) 10.74 K/uL (1.40-6.50); Neutrophils % (auto) 72.2 %; Platelet Count 209 K/uL (130-400); RDW Coefficient of Variation 19.4 % (11.5-14.5); RDW Standard Deviation 67.5 fL (36.4-46.3); Red Blood Count 2.79 M/uL (4.70-6.10); White Blood Count 14.88 K/ul (4.8-10.8)
--- NOTE | 2024-08-29 12:03 | Gastrointestinal Consultation ---
Date of Consultation August 29, 2024 Assessment & Plan (1) Melena: Melena & BRBPR reported. H/H stable. No ongoing bleeding at this time. Recent EGD with GAVE. At present, he is in the ICU with hypotension and hypocalcemia. He is on pressors currently. Calcium correction being undertaken by his primary teams. From a GI standpoint, he should continue an IV PPI gtt and we will continue to monitor conservatively for now. Supervising Physician Co-Signing Physician Notes I examined the patient and reviewed patient's chart , laboratory data and imaging studies. I agree with with assessment and plan of care as suggested by advanced practice provider History of Present Illness Reason for Consultation: melena Attending Physician: Etelvina Odell MD History of Present Illness Patient is a 78 yo male with CAD s/p stent, aortic stenosis s/p bioprosthetic valve, Mobtiz type II s/p pacemaker, HLD, ESRD on HD, bladder cancer, DM2, tobacco use history, COPD, & hyperparathyroidism s/p surgery on 08/19/24. He was recently admitted last week with pneumonia. During that stay, he was in Afib with RVR and was started on Amiodarone & Eliquis. He returned to the hospital with BRBPR and melena that began on 08/26/24. He started to get weaker and that led him to the ED. No other GI symptoms. He had an EGD in May 2024 for possible upper GI bleeding and was noted to have GAVE. He is currently in the ICU with hypotension and hypocalcemia. He was started on Levophed. His calcium level was 4.2 this morning. H/H 9.0/27.1. No further stools documented in the chart since presentation to the hospital. BUN 76/Cr 7.4. He is at dialysis this morning. K 3.1. Allergies Allergy/AdvReac Type Severity Reaction Status Date / Time cephalexin Allergy Severe Tongue and Verified 08/21/24 20:53 face swelling tamsulosin Allergy Severe angioedema Verified 08/21/24 20:53 Home Medications Medication Instructions Recorded Confirmed Type atorvastatin 80 mg tablet 80 mg PO HS 07/01/22 08/28/24 History finasteride 5 mg tablet 5 mg PO DAILY 07/01/22 08/28/24 History vitamins no.144-folic 2 tab PO DAILY 06/08/24 08/28/24 History acid 400 mcg chewable tablet () torsemide 100 mg tablet 100 mg PO SuTuThSa@0900,2100 #32 06/16/24 08/28/24 Rx tabs calcitriol 0.25 mcg capsule 1 mcg PO BID 08/21/24 08/28/24 History calcium acetate(phosphat bind) 667 1,334 mg PO BID 08/21/24 08/28/24 History mg capsule lanthanum 750 mg chewable tablet 750 mg PO TIDWMEAL 08/21/24 08/28/24 History (Fosrenol) triamcinolone acetonide 0.1 % 1 applic topical BID PRN Itching 08/21/24 08/28/24 History topical cream apixaban 5 mg tablet (Eliquis) 5 mg PO BID 30 days #60 tabs 08/25/24 08/28/24 Rx midodrine 5 mg tablet 5 mg PO BID #60 tabs 08/25/24 08/28/24 Rx pantoprazole 40 mg tablet,delayed 40 mg PO DAILY #30 tabs 08/25/24 08/28/24 Rx release amiodarone 200 mg tablet 200 mg PO UD 08/28/24 08/28/24 History Patient History Medical History Anemia Gastric nodule Type 2 diabetes mellitus NIDDM Bifascicular block ongoing since 2010 Umbilical hernia chronic per patient-denies change or worsening History of blood transfusion pre-op aortic valve replacement CAD (coronary artery disease) s/p 1 stent in 2019 HTN (hypertension) controlled, stable per pt History of diverticulitis entered into EMR 09/2022-patient states last flare was 1 year ago History of colon polyps BPH (benign prostatic hyperplasia) CKD (chronic kidney disease), stage V Arthritis Hx of bladder cancer surgery only Hyperlipidemia Surgical History History of cataract surgery left and right H/O cystoscopy History of tooth extraction Aortic valve replaced 2019 at [facility] (followed by Dr. Wei) History of heart artery stent 1 stent placed 2019 History of orchiectomy, unilateral History of arthroscopy of left knee History of colonoscopy Family History Mother Family history of diabetes mellitus Father Family hx of colon cancer Other No family history of adverse response to anesthesia Social History Smoking Status: Never smoker Second Hand Exposure: No; Do You Dip or Chew Tobacco: No; Hx Alcohol Use: No Hx Substance Use: No Preferred Language: Khmer Communication Ability: Effective [employer] Required: No Beliefs That Will Affect Care: None Current Living Situation: Spouse Feels Safe at Home: Yes Safety Concerns: Feels Safe At This Time Assistive Devices: Cane Physical Exam Physical Exam: Patient off the floor during rounds; will be seen by attending later today. Results & Data Vital Signs (Past 12 Hours) Vital Signs Temp Pulse Resp BP BP Pulse Ox Pulse Ox 08/29/24 11:00 65 20 98 08/29/24 10:12 68 22 94 08/29/24 10:00 131/67 08/29/24 09:54 67 15 90 08/29/24 09:30 68 23 94 08/29/24 09:12 68 23 94 08/29/24 09:00 134/64 08/29/24 08:48 73 16 94 08/29/24 08:03 73 21 94 08/29/24 08:01 92 08/29/24 08:01 08/29/24 08:00 120/64 08/29/24 07:45 20 93 08/29/24 07:42 96 H 22 95 08/29/24 07:15 77 20 93 08/29/24 07:09 78 21 96 08/29/24 07:00 36.8 C 08/29/24 06:45 77 24 95 08/29/24 06:30 76 24 96 08/29/24 06:15 78 21 96 08/29/24 06:08 96 08/29/24 06:00 110/60 08/29/24 05:48 55 L 21 80 L 08/29/24 05:30 70 23 90 08/29/24 05:09 67 20 91 08/29/24 05:05 118/43 L 08/29/24 04:51 105/42 L 08/29/24 04:36 65 22 91 08/29/24 04:34 65 22 83/36 L 91 08/29/24 04:34 83/36 L 08/29/24 04:31 64/33 L 08/29/24 04:28 80/29 L 08/29/24 04:23 71/26 L 08/29/24 04:00 95/42 L 08/29/24 03:00 69 26 H 94/47 L 91 08/29/24 02:34 37 C 67 22 96/42 L 92 08/29/24 02:06 36.7 C 67 23 90/39 L 90 08/29/24 01:06 37.1 C 69 25 H 90/38 L 91 08/29/24 00:06 36.9 C 70 18 92/38 L 91 08/29/24 00:00 70 08/28/24 23:36 36.9 C 70 27 H 91/39 L 92 08/28/24 23:21 37.0 C 71 23 96/41 L 91 O2 Del Method O2 Del Method O2 Flow Rate O2 Flow Rate 08/29/24 11:00 08/29/24 10:12 08/29/24 10:00 08/29/24 09:54 08/29/24 09:30 08/29/24 09:12 08/29/24 09:00 08/29/24 08:48 08/29/24 08:03 08/29/24 08:01 Nasal Cannula 2 08/29/24 08:01 Room Air 08/29/24 08:00 08/29/24 07:45 08/29/24 07:42 08/29/24 07:15 08/29/24 07:09 08/29/24 07:00 08/29/24 06:45 08/29/24 06:30 08/29/24 06:15 Nasal Cannula 2 08/29/24 06:08 Nasal Cannula 2 08/29/24 06:00 08/29/24 05:48 08/29/24 05:30 08/29/24 05:09 08/29/24 05:05 08/29/24 04:51 08/29/24 04:36 Room Air 08/29/24 04:34 Room Air 08/29/24 04:34 08/29/24 04:31 08/29/24 04:28 08/29/24 04:23 08/29/24 04:00 08/29/24 03:00 Room Air 08/29/24 02:34 08/29/24 02:06 08/29/24 01:06 08/29/24 00:06 08/29/24 00:00 08/28/24 23:36 08/28/24 23:21 PG Care Time/CCT Total # of Minutes Spent Total Time Spent with Patient: Total time spent is greater than 50% in coordination of care (as documented) at patient's floor/unit and/or counseling patient: Coding Level of Care Code 71892 INT INP/OBS CARE 3/75MIN Diagnoses Melena K92.1
[2024-08-29 12:21] LABS: Calcium 6.7 mg/dl (8.6-10.3)
--- NOTE | 2024-08-29 12:22 | Nephrology Consultation ---
Date of Consultation August 29, 2024 Assessment & Plan (1) ESRD on dialysis: for HD later today w/ minimal UF; may need pressor support; monitor for dialysis need daily 3 or if available 4 K bath check iron stores w/ next labs will shorten tx if ENT wishes to scope today care coordinated w/ Olivier Odell and Ale both via phone re dialysis timing, ENT evaluation, BP support; we are in agreement. (2) Hypocalcemia: severe and expected post parathyroidectomy but hoarseness/dysphagia unexpected >> ? relation to recent surgery +/- to recent PNA >agree w/ ENT eval > calcitriol 1 gm bid to continue > continue IV calcium as needed and multiple calcium/mag checks daily >will hold off on po Ca for now >started standing K 10 mEq bid for now >continue to replete mag as needed/able and do it IV (3) Hypotension (arterial): continue pressor as needed on HD; continue max dose midodrine fine w/ stopping diuretic; doubt this or finasteride have much BP impact however (4) Rectal bleeding: continue to monitor; as per primary service, critical care, GI; may need to d/w cardiology re eliquis History of Present Illness Reason for Consultation: ESRD on HD Requesting Physician: Dr Boyd Attending Physician: Etelvina Odell MD History of Present Illness 78 y/o M whom I'm asked to see for ESRD on HD was admitted to ICU for hypotension in setting of concern for GI bleeding last evening after recently starting eliquis for stroke prevention. PMH includes ESRD on HD (currently in training for home HD) under my care at [facility]. D/t severe secondary hyperparathyroidism he underwent parathyroidect[place] [facility] [place]. Also has aortic stenosis, s/p TAVR w/ elevated prosthesis velocities, intermittent LBBB/conduction system disease s/p Jun 2024 leadless pacer insertion, CAD s/p 1999 circumflex stent, chronic hypotension on midodrine, HL, h/o bladder cancer and prostatic hypertrophy, diet controlled DM. 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 admitted here 08/21-08/25 for pneumonia and AF w/ RVR. he presented yesterday w/ c/o BRBPR x 3 days. had been started on eliquis last admission but cut dose down d/t bleeding. after recent parathryoidectomy was also told to take tums EX 1.5 gm tid but did this for only a few days then stopped. calcium 6.5 on presentation down to 4.2 this am; albumin 3.4, mag 1.3; he is currently NPO pending GI eval. no further BRBPR since arrival, no diarrhea; hgb stable at 9. no sob, no dyspnea, no palpitations. no abdominal pain no n/v. + hunger. no f/c. no generalized weakness or fasciculations. notably since parathyroidectomy he's been hoarse w/ pain on speaking or swallowing. he had 2 gm calcium last evening and 3 gm mag; he was startedon norepinehphrine gtt; no IVF received. this am had 3 gm calcium and 1 L NS. Allergies Allergy/AdvReac Type Severity Reaction Status Date / Time cephalexin Allergy Severe Tongue and Verified 08/21/24 20:53 face swelling tamsulosin Allergy Severe angioedema Verified 08/21/24 20:53 Home Medications Medication Instructions Recorded Confirmed Type atorvastatin 80 mg tablet 80 mg PO HS 07/01/22 08/28/24 History finasteride 5 mg tablet 5 mg PO DAILY 07/01/22 08/28/24 History vitamins no.144-folic 2 tab PO DAILY 06/08/24 08/28/24 History acid 400 mcg chewable tablet () torsemide 100 mg tablet 100 mg PO SuTuThSa@0900,2100 #32 06/16/24 08/28/24 Rx tabs calcitriol 0.25 mcg capsule 1 mcg PO BID 08/21/24 08/28/24 History calcium acetate(phosphat bind) 667 1,334 mg PO BID 08/21/24 08/28/24 History mg capsule lanthanum 750 mg chewable tablet 750 mg PO TIDWMEAL 08/21/24 08/28/24 History (Fosrenol) triamcinolone acetonide 0.1 % 1 applic topical BID PRN Itching 08/21/24 08/28/24 History topical cream apixaban 5 mg tablet (Eliquis) 5 mg PO BID 30 days #60 tabs 08/25/24 08/28/24 Rx midodrine 5 mg tablet 5 mg PO BID #60 tabs 08/25/24 08/28/24 Rx pantoprazole 40 mg tablet,delayed 40 mg PO DAILY #30 tabs 08/25/24 08/28/24 Rx release amiodarone 200 mg tablet 200 mg PO UD 08/28/24 08/28/24 History Patient History Medical History Anemia Gastric nodule Type 2 diabetes mellitus NIDDM Bifascicular block ongoing since 2010 Umbilical hernia chronic per patient-denies change or worsening History of blood transfusion pre-op aortic valve replacement CAD (coronary artery disease) s/p 1 stent in 2019 HTN (hypertension) controlled, stable per pt History of diverticulitis entered into EMR 09/2022-patient states last flare was 1 year ago History of colon polyps BPH (benign prostatic hyperplasia) CKD (chronic kidney disease), stage V Arthritis Hx of bladder cancer surgery only Hyperlipidemia Surgical History History of cataract surgery left and right H/O cystoscopy History of tooth extraction Aortic valve replaced 2019 at [facility] (followed by Dr. Wei) History of heart artery stent 1 stent placed 2019 History of orchiectomy, unilateral History of arthroscopy of left knee History of colonoscopy Family History Mother Family history of diabetes mellitus Father Family hx of colon cancer Other No family history of adverse response to anesthesia Social History Smoking Status: Never smoker Second Hand Exposure: No; Do You Dip or Chew Tobacco: No; Hx Alcohol Use: No Hx Substance Use: No Preferred Language: Bulgarian Communication Ability: Effective Pmo Project Manager Required: No Beliefs That Will Affect Care: None Current Living Situation: Spouse Feels Safe at Home: Yes Assistive Devices: Cane Review of Systems 2 Review of Systems: All systems reviewed & are unremarkable except as noted in HPI & below Physical Exam 2 Constitutional: well developed and well nourished Eyes: EOM intact bilaterally ENMT: Mouth: + muffled voice (speaks in a whisper and limits words) and + dry oral mucous membranes Respiratory: normal respiratory effort Auscultation: + diminished lung sounds and + rhonchi (a few) Cardiovascular: RRR, no murmur, no edema Gastrointestinal (Abdomen): Inspection/Auscultation: normal bowel sounds P ercussion/Palpation: abdomen soft; abdomen nontender Musculoskeletal: Extremities: strength 5/5 throughout Skin: no rashes, warm and dry Neurologic: ford, limited speech, no tremor Results & Data Vital Signs (Past 12 Hours) Vital Signs Temp Pulse Resp BP BP Pulse Ox Pulse Ox 08/29/24 08:01 92 08/29/24 08:01 08/29/24 07:45 20 93 08/29/24 07:42 96 H 22 95 08/29/24 07:15 77 20 93 08/29/24 07:09 78 21 96 08/29/24 07:00 36.8 C 08/29/24 06:45 77 24 95 08/29/24 06:30 76 24 96 08/29/24 06:15 78 21 96 08/29/24 06:08 96 08/29/24 06:00 110/60 08/29/24 05:48 55 L 21 80 L 08/29/24 05:30 70 23 90 08/29/24 05:09 67 20 91 08/29/24 05:05 118/43 L 08/29/24 04:51 105/42 L 08/29/24 04:36 65 22 91 08/29/24 04:34 65 22 83/36 L 91 08/29/24 04:34 83/36 L 08/29/24 04:31 64/33 L 08/29/24 04:28 80/29 L 08/29/24 04:23 71/26 L 08/29/24 04:00 95/42 L 08/29/24 03:00 69 26 H 94/47 L 91 08/29/24 02:34 37 C 67 22 96/42 L 92 08/29/24 02:06 36.7 C 67 23 90/39 L 90 08/29/24 01:06 37.1 C 69 25 H 90/38 L 91 08/29/24 00:06 36.9 C 70 18 92/38 L 91 08/29/24 00:00 70 08/28/24 23:36 36.9 C 70 27 H 91/39 L 92 08/28/24 23:21 37.0 C 71 23 96/41 L 91 08/28/24 23:05 37.1 C 71 22 97/42 L 96 08/28/24 22:12 71 24 105/46 L 90 08/28/24 21:03 68 24 92 08/28/24 21:00 86/34 L O2 Del Method O2 Del Method O2 Flow Rate O2 Flow Rate 08/29/24 08:01 Nasal Cannula 2 08/29/24 08:01 Room Air 08/29/24 07:45 08/29/24 07:42 08/29/24 07:15 08/29/24 07:09 08/29/24 07:00 08/29/24 06:45 08/29/24 06:30 08/29/24 06:15 Nasal Cannula 2 08/29/24 06:08 Nasal Cannula 2 08/29/24 06:00 08/29/24 05:48 08/29/24 05:30 08/29/24 05:09 08/29/24 05:05 08/29/24 04:51 08/29/24 04:36 Room Air 08/29/24 04:34 Room Air 08/29/24 04:34 08/29/24 04:31 08/29/24 04:28 08/29/24 04:23 08/29/24 04:00 08/29/24 03:00 Room Air 08/29/24 02:34 08/29/24 02:06 08/29/24 01:06 08/29/24 00:06 08/29/24 00:00 08/28/24 23:36 08/28/24 23:21 08/28/24 23:05 0 08/28/24 22:12 Room Air 08/28/24 21:03 Room Air 08/28/24 21:00 Laboratory Results 08/29/24 11:38 08/29/24 04:[address] chest today > resolving RLL PNA, mild edema
[2024-08-29] MEDS ORDERED: SODIUM CHLORIDE 0.9% 1,000 ML IV PRN (12:38)
--- NOTE | 2024-08-29 13:30 | Hospitalist Progress Note ---
Date of Service August 29, 2024 Assessment & Plan (1) Acute GI bleeding: (2) Hypocalcemia: Plan 78 year old man with h/o CAD status post stent, aortic stenosis status post bioprosthetic valve, Mobitz type II status post pacemaker, hyperlipidemia, ESRD on hemodialysis, bladder cancer status postsurgery, type 2 diabetes mellitus, past tobacco use, possibly underlying COPD, hyperparathyroidism status post surgery on 08/19/2024 GI bleed Acute blood loss anemia History of atrial fibrillation on Eliquis Patient presented with melena and bright red blood per rectum for last 3 days. Recently started on Eliquis for AFib; last dose on 08/27 in am as per patient Hemoglobin down trended from 9.2 on 08/25 -8.2 on presentation Anti-Xa of 1.09 IU/mL S/p Kcentra in the ED History of endoscopy in June 10, 2024; linear erythema extending through the antrum to the pylorus; could be gastritis or possibly GAVE. Biopsy revealed gastric mucosa with chronic inflammation. Has got 2 PRBC Hb 8.8 this AM Awaiting GI evaluation Hypoxic respiratory failure Odynophagia Recent parathyroidectomy on 08/19/2024 CT chest showed resolving pneumonia ENT consulted for better evaluation of odynophagia Severe Hypocalcemia Hypokalemia Continue calcium repletion Nephrology on board Continue calcitriol, IV calcium Replete hypokalemia Elevated high sensitive troponin in setting of ESRD History of CAD Likely demand ischemia Hypotension High sensitive troponin of 73 on admission; was previously 294 on 08/21 Patient denies any chest pain Hypotension on low dose levophed Continue midodrine History of atrial fibrillation- Continue amiodarone twice a day until 08/31; then switch over to once a day. Eliquis stopped due to GIB ESRD on HDnephrology consulted; MWF dialysis Hyperlipidemiacontinue Lipitor Type 2 diabetes mellituscontinue on insulin SSI Updated at bedside Full code DVT prophylaxis SCDs for now I spent a total of 60 minutes coordinating, documenting and providing care for this patient excluding time spent in performance of separately billed services Admission and Anticipated Discharge Date Admission Date: August 28, 2024 Subjective Patient seen and examined Reported bloody BM at home Also reports increasing odynophagia from his recent parathyroidectomy Physical Exam Constitutional: + well hydrated; no acute distress Eyes: PERRL, conjunctivae normal, anicteric sclerae ENMT: external ear and nose normal, oropharynx normal Respiratory: normal respiratory effort; no respiratory distress Cardiovascular: Rate/Rhythm: regular rate and regular rhythm Gastrointestinal (Abdomen): normal bowel sounds, soft, nontender, no hepatosplenomegaly Neurologic: PERRL, EOMI, accommodation nl, no face palsy, no dysarthria Psychiatric: A+Ox3, euthymic affect Results & Data Results & Data Vital Signs (Past 12 Hours) Vital Signs Temp Pulse Resp BP BP Pulse Ox Pulse Ox 08/29/24 12:00 65 08/29/24 11:00 65 20 98 08/29/24 10:12 68 22 94 08/29/24 10:00 131/67 08/29/24 09:54 67 15 90 08/29/24 09:30 68 23 94 08/29/24 09:12 68 23 94 08/29/24 09:00 134/64 08/29/24 08:48 73 16 94 08/29/24 08:03 73 21 94 08/29/24 08:01 92 08/29/24 08:01 08/29/24 08:00 120/64 08/29/24 07:45 20 93 08/29/24 07:42 96 H 22 95 08/29/24 07:15 77 20 93 08/29/24 07:09 78 21 96 08/29/24 07:00 36.8 C 08/29/24 06:45 77 24 95 08/29/24 06:30 76 24 96 08/29/24 06:15 78 21 96 08/29/24 06:08 96 08/29/24 06:00 110/60 08/29/24 05:48 55 L 21 80 L 08/29/24 05:30 70 23 90 08/29/24 05:09 67 20 91 08/29/24 05:05 118/43 L 08/29/24 04:51 105/42 L 08/29/24 04:36 65 22 91 08/29/24 04:34 65 22 83/36 L 91 08/29/24 04:34 83/36 L 08/29/24 04:31 64/33 L 08/29/24 04:28 80/29 L 08/29/24 04:23 71/26 L 08/29/24 04:00 95/42 L 08/29/24 03:00 69 26 H 94/47 L 91 08/29/24 02:34 37 C 67 22 96/42 L 92 08/29/24 02:06 36.7 C 67 23 90/39 L 90 O2 Del Method O2 Del Method O2 Flow Rate O2 Flow Rate 08/29/24 12:00 08/29/24 11:00 08/29/24 10:12 08/29/24 10:00 08/29/24 09:54 08/29/24 09:30 08/29/24 09:12 08/29/24 09:00 08/29/24 08:48 08/29/24 08:03 08/29/24 08:01 Nasal Cannula 2 08/29/24 08:01 Room Air 08/29/24 08:00 08/29/24 07:45 08/29/24 07:42 08/29/24 07:15 08/29/24 07:09 08/29/24 07:00 08/29/24 06:45 08/29/24 06:30 08/29/24 06:15 Nasal Cannula 2 08/29/24 06:08 Nasal Cannula 2 08/29/24 06:00 08/29/24 05:48 08/29/24 05:30 08/29/24 05:09 08/29/24 05:05 08/29/24 04:51 08/29/24 04:36 Room Air 08/29/24 04:34 Room Air 08/29/24 04:34 08/29/24 04:31 08/29/24 04:28 08/29/24 04:23 08/29/24 04:00 08/29/24 03:00 Room Air 08/29/24 02:34 08/29/24 02:06 Laboratory Results Abnormal lab results 08/28/24 08/28/24 08/28/24 Range/Units 12:28 15:45 16:02 WBC (4.8-10.8) K/ul RBC (4.70-6.10) M/uL Hgb (14.0-18.0) g/dl Hct (42.0-52.0) % RDW Std Deviation (36.4-46.3) fL RDW Coeff of Grace (11.5-14.5) % Neut # (Auto) (1.40-6.50) K/uL Mcduffie # (Auto) (0.11-0.59) K/uL Eos # (Auto) (0.00-0.50) K/uL Immature Gran # (Auto) (0.01-0.20) K/uL Potassium (3.5-5.1) mmol/L Chloride (98-107) mmol/L Carbon Dioxide (21-32) mmol/L BUN (6-23) mg/dl Creatinine (0.6-1.4) mg/dl Glucose (70-99(Fasting)) mg/dl POC Glucose 146 H (70-99) mg/dl POC Glucose (other) (70-99) mg/dl Calcium (8.6-10.3) mg/dl Ionized Calcium (1.12-1.32) mmol/L Magnesium (1.7-2.4) mg/dl AST (13-39) U/L ALT (7-52) U/L Troponin I High Sens (0-20) pg/ml Total Protein (6.0-8.3) gm/dl Albumin (3.4-5.0) gm/dl Globulin (2.5-4.0) gm/dl PTH Intact (12.0-88.0) pg/ml Urine Appearance Cloudy A (Clear) Urine Protein 2+ H (Negative) Urine Blood 1+ H (Negative) Ur Leukocyte Esterase 3+ H (Negative) Urine WBC (Auto) >50 H (0-5) /hpf U Hyaline Cast (Auto) 6-10 H (0-2) /lpf Urine Bacteria (Auto) 1+ H (None Seen) Crossmatch See Detail 08/28/24 08/28/24 08/28/24 Range/Units 17:13 17:13 17:13 WBC 14.10 H (4.8-10.8) K/ul RBC 2.54 L (4.70-6.10) M/uL Hgb 8.1 L 8.3 L (14.0-18.0) g/dl Hct 24.8 L 25.0 L (42.0-52.0) % RDW Std Deviation 66.4 H (36.4-46.3) fL RDW Coeff of Grace 18.9 H (11.5-14.5) % Neut # (Auto) 10.02 H (1.40-6.50) K/uL Mcduffie # (Auto) 1.48 H (0.11-0.59) K/uL Eos # (Auto) 0.56 H (0.00-0.50) K/uL Immature Gran # (Auto) 0.38 H (0.01-0.20) K/uL Potassium (3.5-5.1) mmol/L Chloride (98-107) mmol/L Carbon Dioxide (21-32) mmol/L BUN 98 H (6-23) mg/dl Creatinine 9.56 H* (0.6-1.4) mg/dl Glucose 128 H (70-99(Fasting)) mg/dl POC Glucose (70-99) mg/dl POC Glucose (other) (70-99) mg/dl Calcium 6.0 L (8.6-10.3) mg/dl Ionized Calcium (1.12-1.32) mmol/L Magnesium (1.7-2.4) mg/dl AST (13-39) U/L ALT (7-52) U/L Troponin I High Sens 61.7 H* (0-20) pg/ml Total Protein (6.0-8.3) gm/dl Albumin (3.4-5.0) gm/dl Globulin (2.5-4.0) gm/dl PTH Intact (12.0-88.0) pg/ml Urine Appearance (Clear) Urine Protein (Negative) Urine Blood (Negative) Ur Leukocyte Esterase (Negative) Urine WBC (Auto) (0-5) /hpf U Hyaline Cast (Auto) (0-2) /lpf Urine Bacteria (Auto) (None Seen) Crossmatch 08/28/24 08/28/24 08/28/24 Range/Units 20:33 22:27 23:58 WBC (4.8-10.8) K/ul RBC (4.70-6.10) M/uL Hgb 8.3 L (14.0-18.0) g/dl Hct (42.0-52.0) % RDW Std Deviation (36.4-46.3) fL RDW Coeff of Grace (11.5-14.5) % Neut # (Auto) (1.40-6.50) K/uL Mcduffie # (Auto) (0.11-0.59) K/uL Eos # (Auto) (0.00-0.50) K/uL Immature Gran # (Auto) (0.01-0.20) K/uL Potassium (3.5-5.1) mmol/L Chloride (98-107) mmol/L Carbon Dioxide (21-32) mmol/L BUN (6-23) mg/dl Creatinine (0.6-1.4) mg/dl Glucose (70-99(Fasting)) mg/dl POC Glucose 117 H 114 H (70-99) mg/dl POC Glucose (other) (70-99) mg/dl Calcium (8.6-10.3) mg/dl Ionized Calcium (1.12-1.32) mmol/L Magnesium (1.7-2.4) mg/dl AST (13-39) U/L ALT (7-52) U/L Troponin I High Sens (0-20) pg/ml Total Protein (6.0-8.3) gm/dl Albumin (3.4-5.0) gm/dl Globulin (2.5-4.0) gm/dl PTH Intact (12.0-88.0) pg/ml Urine Appearance (Clear) Urine Protein (Negative) Urine Blood (Negative) Ur Leukocyte Esterase (Negative) Urine WBC (Auto) (0-5) /hpf U Hyaline Cast (Auto) (0-2) /lpf Urine Bacteria (Auto) (None Seen) Crossmatch 08/29/24 08/29/24 08/29/24 Range/Units 04:03 05:58 08:23 WBC 14.40 H 16.12 H (4.8-10.8) K/ul RBC 2.88 L 2.85 L (4.70-6.10) M/uL Hgb 9.0 L 9.0 L (14.0-18.0) g/dl Hct 27.4 L 27.1 L (42.0-52.0) % RDW Std Deviation 65.6 H 65.9 H (36.4-46.3) fL RDW Coeff of Grace 19.2 H 19.2 H (11.5-14.5) % Neut # (Auto) 9.90 H 11.60 H (1.40-6.50) K/uL Mcduffie # (Auto) 1.59 H 1.68 H (0.11-0.59) K/uL Eos # (Auto) 0.67 H 0.66 H (0.00-0.50) K/uL Immature Gran # (Auto) 0.43 H 0.55 H (0.01-0.20) K/uL Potassium 3.1 L D (3.5-5.1) mmol/L Chloride 114 H (98-107) mmol/L Carbon Dioxide 17 L (21-32) mmol/L BUN 76 H D (6-23) mg/dl Creatinine 7.40 H* D (0.6-1.4) mg/dl Glucose (70-99(Fasting)) mg/dl POC Glucose (70-99) mg/dl POC Glucose (other) 135 H (70-99) mg/dl Calcium 4.2 L* (8.6-10.3) mg/dl Ionized Calcium 0.47 L* 0.97 L (1.12-1.32) mmol/L Magnesium 1.3 L (1.7-2.4) mg/dl AST 7 L (13-39) U/L ALT 5 L (7-52) U/L Troponin I High Sens (0-20) pg/ml Total Protein 3.8 L D (6.0-8.3) gm/dl Albumin 2.4 L (3.4-5.0) gm/dl Globulin 1.4 L (2.5-4.0) gm/dl PTH Intact 5.1 L (12.0-88.0) pg/ml Urine Appearance (Clear) Urine Protein (Negative) Urine Blood (Negative) Ur Leukocyte Esterase (Negative) Urine WBC (Auto) (0-5) /hpf U Hyaline Cast (Auto) (0-2) /lpf Urine Bacteria (Auto) (None Seen) Crossmatch 08/29/24 08/29/24 08/29/24 Range/Units 08:31 11:38 11:47 WBC 14.88 H (4.8-10.8) K/ul RBC 2.79 L (4.70-6.10) M/uL Hgb 8.8 L (14.0-18.0) g/dl Hct 26.9 L (42.0-52.0) % RDW Std Deviation 67.5 H (36.4-46.3) fL RDW Coeff of Grace 19.4 H (11.5-14.5) % Neut # (Auto) 10.74 H (1.40-6.50) K/uL Mcduffie # (Auto) 1.56 H (0.11-0.59) K/uL Eos # (Auto) 0.72 H (0.00-0.50) K/uL Immature Gran # (Auto) 0.43 H (0.01-0.20) K/uL Potassium (3.5-5.1) mmol/L Chloride (98-107) mmol/L Carbon Dioxide (21-32) mmol/L BUN (6-23) mg/dl Creatinine (0.6-1.4) mg/dl Glucose (70-99(Fasting)) mg/dl POC Glucose (70-99) mg/dl POC Glucose (other) 150 H 138 H (70-99) mg/dl Calcium 6.7 L D (8.6-10.3) mg/dl Ionized Calcium (1.12-1.32) mmol/L Magnesium 3.0 H (1.7-2.4) mg/dl AST (13-39) U/L ALT (7-52) U/L Troponin I High Sens (0-20) pg/ml Total Protein (6.0-8.3) gm/dl Albumin (3.4-5.0) gm/dl Globulin (2.5-4.0) gm/dl PTH Intact (12.0-88.0) pg/ml Urine Appearance (Clear) Urine Protein (Negative) Urine Blood (Negative) Ur Leukocyte Esterase (Negative) Urine WBC (Auto) (0-5) /hpf U Hyaline Cast (Auto) (0-2) /lpf Urine Bacteria (Auto) (None Seen) Crossmatch
[2024-08-29] MEDS: POTASSIUM CHLORIDE 10 MEQ TABCR PO SCH (14:05)
[2024-08-29] MEDS: CALCIUM GLUCONATE 1,000 MG/60 ML BAG IV SCH (16:42)
[2024-08-29] MEDS ORDERED: Nursing to Pharmacy Communication SCH (18:30)
[2024-08-29] MEDS: EPOETIN ALFA 20,000 UNITS/ML VIAL IV ONE (19:16)
[2024-08-29] MEDS: INSULIN ASPART PER UNIT CHARGE SC SCH (22:11)
[2024-08-29 23:15] LABS: Basophils # (auto) 0.04 K/uL (0.00-0.20); Basophils % (auto) 0.4 %; Eosinophils # (auto) 0.69 K/uL (0.00-0.50); Eosinophils % (auto) 6.1 %; Hematocrit (blood only) 26.6 % (42.0-52.0); Immature Granulocytes # (auto) 0.44 K/uL (0.01-0.20); Immature Granulocytes % (auto) 3.9 %; Lymphocytes # (auto) 1.13 K/uL (1.20-3.40); Lymphocytes % (auto) 9.9 %; Mean Corpuscular Hemoglobin 31.7 pg (25.0-34.0); Mean Corpuscular Hgb Conc 33.8 g/dL (32.0-36.0); Mean Corpuscular Volume 93.7 fL (80.0-100.0); Mean Platelet Volume 10.5 fL (9.4-12.4); Monocytes # (auto) 1.63 K/uL (0.11-0.59); Monocytes % (auto) 14.3 %; Neutrophils # (auto) 7.46 K/uL (1.40-6.50); Neutrophils % (auto) 65.4 %; Platelet Count 154 K/uL (130-400); RDW Standard Deviation 63.6 fL (36.4-46.3); Red Blood Count 2.84 M/uL (4.70-6.10); White Blood Count 11.39 K/ul (4.8-10.8)
[2024-08-29 23:27] LABS: Iron 24 mcg/dl (35-175); Total Iron Binding Cap Calc 213 mcg/dl (250-450); Transferrin 152 mg/dl (200-360); Transferrin (FE) Percent Satur 11 % (20-50)
[2024-08-29 23:35] LABS: Calcium 7.4 mg/dl (8.6-10.3); Creatinine Clr Calc Pharmacy 11.4 ml/min; Magnesium 2.2 mg/dl (1.7-2.4)
[2024-08-30 04:13] LABS: BUN Creatinine Ratio 7.2 (10-20); Calcium 7.6 mg/dl (8.6-10.3); Creatinine Clr Calc Pharmacy 10.1 ml/min; Magnesium 2.2 mg/dl (1.7-2.4); Potassium 4.2 mmol/L (3.5-5.1)
[2024-08-30 04:14] LABS: BUN Creatinine Ratio 7.4 (10-20); Calcium 7.7 mg/dl (8.6-10.3); Creatinine Clr Calc Pharmacy 10.3 ml/min; Magnesium 2.3 mg/dl (1.7-2.4); Potassium 4.2 mmol/L (3.5-5.1)
[2024-08-30] MEDS: CALCIUM CHLORIDE 10% 1,000 MG in DEXTROSE 5% 50 ML IV STA (05:36)
[2024-08-30 07:49] LABS: BUN Creatinine Ratio 7.6 (10-20); Calcium 7.9 mg/dl (8.6-10.3); Creatinine Clr Calc Pharmacy 10.2 ml/min; Magnesium 2.4 mg/dl (1.7-2.4); Potassium 4.7 mmol/L (3.5-5.1)
[2024-08-30 08:23] LABS: Hematocrit (blood only) 27.7 % (42.0-52.0); Mean Corpuscular Hemoglobin 31.5 pg (25.0-34.0); Mean Corpuscular Hgb Conc 32.5 g/dL (32.0-36.0); Mean Corpuscular Volume 96.9 fL (80.0-100.0); Platelet Count 170 K/uL (130-400); Red Blood Count 2.86 M/uL (4.70-6.10)
--- NOTE | 2024-08-30 10:02 | Gastroenterology Progress Note ---
Date of Service August 30, 2024 Assessment & Plan (1) GI bleed: Plan: -Continue IV Protonix gtt -Continue to monitor H/H -Continue to monitor for overt GI bleeding -Patient with known GAVE. Discussed that we could consider repeating EGD and colonoscopy when his overall clinical picture improves (off Norepi/calcium improved). He is unsure that he wants to even pursue further scopes, but is very curious as to the etiology of his symptoms. He can continue to consider his options while his primary teams further optimize his overall medical status. Admission and Anticipated Discharge Date Admission Date: August 28, 2024 Supervising Physician Co-Signing Physician Notes I reviewed patient's chart , laboratory data and imaging studies. I agree with with assessment and plan of care as suggested by advanced practice provider Subjective Patient is a 78 yo male currently hospitalized in the ICU. He continues on pressor support. BP 97/52. Calcium today 7.9 L. H/H 9.0/26.6. He's being treated for pneumonia as well. Patient is not having any overt GI bleeding. He is on a Protonix drip. Last colonoscopy 2018. Last EGD in May with GAVE. No other GI complaints at present. Review of Systems Constitutional: no fever and no chills Gastrointestinal: no abdominal pain, no blood in stools and no melena Physical Exam Constitutional: well developed Gastrointestinal (Abdomen): normal bowel sounds, soft, nontender, no hepatosplenomegaly Psychiatric: Orientation: alert and oriented x 3 Results & Data Results & Data Vital Signs (Past 12 Hours) Vital Signs Temp Pulse Resp BP BP BP Pulse Ox 08/30/24 08:35 97/33 L 08/30/24 06:00 70 23 97/52 L 96 08/30/24 05:00 67 19 112/52 L 96 08/30/24 04:20 36.6 C 08/30/24 04:00 68 22 105/55 L 99 08/30/24 03:00 72 23 107/54 L 95 08/30/24 02:00 67 24 115/58 L 95 08/30/24 01:00 82 20 118/59 L 94 08/30/24 00:41 36.5 C 08/30/24 00:12 72 27 H 117/73 96 08/30/24 00:00 72 08/29/24 23:00 73 22 117/58 L 97 08/29/24 22:28 105/44 L 08/29/24 22:06 70 21 132/56 L 97 O2 Del Method O2 Flow Rate 08/30/24 08:35 08/30/24 06:00 Nasal Cannula 2 08/30/24 05:00 Nasal Cannula 2 08/30/24 04:20 08/30/24 04:00 Nasal Cannula 2 08/30/24 03:00 Nasal Cannula 2 08/30/24 02:00 Nasal Cannula 2 08/30/24 01:00 Nasal Cannula 2 08/30/24 00:41 08/30/24 00:12 Nasal Cannula 2 08/30/24 00:00 08/29/24 23:00 Nasal Cannula 2 08/29/24 22:28 08/29/24 22:06 Nasal Cannula 2 PG Care Time/CCT Total # of Minutes Spent Total Time Spent with Patient: Total time spent is greater than 50% in coordination of care (as documented) at patient's floor/unit and/or counseling patient: Coding Level of Care Code 17765 SUB INP/OBS CARE 3/50MIN Diagnoses GI bleed K92.2
--- NOTE | 2024-08-30 10:13 | Nephrology Progress Note ---
Date of Service August 30, 2024 Assessment & Plan (1) ESRD on dialysis: Plan: MWF HD > uneventful HD 08/29 w/ 900 mL UF >next HD 08/31 or as needs dictate; may need pressor support; monitor for dialysis need daily >>>>>low iron stores t sat 11%> needs IV iron and started load -pending ENT note Care coordinated w/ Dr Aguilera re med changes, next HD, ENT eval, baseline BPs; we are in agreement. (2) Hypocalcemia: Plan: improving but initially severe and expected post parathyroidectomy but hoarseness/dysphagia unexpected >> ? relation to recent surgery +/- to recent PNA mag 2.4 today; iCa 1.09 >agree w/ ENT eval > calcitriol 1 gm bid to continue >>>>> continue IV calcium as needed >> ordered 2 gm IV for today >will hold off on po Ca for now -continue phosLo (calcium rich) phos binder for now; but monitor for need/opportunity to change back to fosrenol >>>>>>stopped standing K for now for post HD K 4.7 on suppls >continue to replete mag as needed/able and do it IV - none needed today (3) Hypotension (arterial): Plan: continue pressor as needed on HD; continue max dose midodrine fine w/ stopping diuretic; doubt this or finasteride has much BP impact however (4) Rectal bleeding: Plan: continue to monitor; as per primary service, critical care, GI; may need to d/w cardiology re jenna Admission and Anticipated Discharge Date Admission Date: August 28, 2024 Subjective off of pressors for <30 min when I saw him mid AM; no sob, no n/v, anxious for d/c as he typically is; no edema. had 900 mL UF yesterday evening; ENT saw him pt reports (?true?) and mentioned no scope Review of Systems 2 Review of Systems: All systems reviewed & are unremarkable except as noted in Subjective Physical Exam 2 Constitutional: well developed and well nourished Eyes: EOM intact bilaterally ENMT: Mouth: + muffled voice (speaks in a whisper and limits words) and + dry oral mucous membranes Respiratory: normal respiratory effort Auscultation: + diminished lung sounds, + crackles (some fine idffuse) and + rhonchi (a few) Cardiovascular: RRR, no murmur, no edema Gastrointestinal (Abdomen): Inspection/Auscultation: normal bowel sounds P ercussion/Palpation: abdomen soft; abdomen nontender Musculoskeletal: Extremities: strength 5/5 throughout Skin: no rashes, warm and dry Results & Data Vital Signs (Past 12 Hours) Vital Signs Temp Pulse Resp BP BP BP Pulse Ox 08/30/24 08:35 97/33 L 08/30/24 06:00 70 23 97/52 L 96 08/30/24 05:00 67 19 112/52 L 96 08/30/24 04:20 36.6 C 08/30/24 04:00 68 22 105/55 L 99 08/30/24 03:00 72 23 107/54 L 95 08/30/24 02:00 67 24 115/58 L 95 08/30/24 01:00 82 20 118/59 L 94 08/30/24 00:41 36.5 C 08/30/24 00:12 72 27 H 117/73 96 08/30/24 00:00 72 08/29/24 23:00 73 22 117/58 L 97 08/29/24 22:28 105/44 L O2 Del Method O2 Flow Rate 08/30/24 08:35 08/30/24 06:00 Nasal Cannula 2 08/30/24 05:00 Nasal Cannula 2 08/30/24 04:20 08/30/24 04:00 Nasal Cannula 2 08/30/24 03:00 Nasal Cannula 2 08/30/24 02:00 Nasal Cannula 2 08/30/24 01:00 Nasal Cannula 2 08/30/24 00:41 08/30/24 00:12 Nasal Cannula 2 08/30/24 00:00 08/29/24 23:00 Nasal Cannula 2 08/29/24 22:28 Laboratory Results 08/30/24 07:49 08/30/24 07:09
[2024-08-30] MEDS: IRON SUCROSE 300 MG in SODIUM CHLORIDE 0.9% 250 ML IV ONE (11:20)
[2024-08-30] MEDS: CALCIUM GLUCONATE 1,000 MG/60 ML BAG IV SCH (11:20)
--- NOTE | 2024-08-30 12:37 | Hospitalist Progress Note ---
Date of Service August 30, 2024 Assessment & Plan (1) Acute GI bleeding: (2) Hypocalcemia: Plan 78 year old man with h/o CAD status post stent, aortic stenosis status post bioprosthetic valve, Mobitz type II status post pacemaker, hyperlipidemia, ESRD on hemodialysis, bladder cancer status postsurgery, type 2 diabetes mellitus, past tobacco use, possibly underlying COPD, hyperparathyroidism status post surgery on 08/19/2024 GI bleed Acute blood loss anemia History of atrial fibrillation on Eliquis Patient presented with melena and bright red blood per rectum for last 3 days. Recently started on Eliquis for AFib; last dose on 08/27 in am as per patient Hemoglobin down trended from 9.2 on 08/25 -8.2 on presentation Anti-Xa of 1.09 IU/mL S/p Kcentra in the ED History of endoscopy in June 10, 2024; linear erythema extending through the antrum to the pylorus; could be gastritis or possibly GAVE. Biopsy revealed gastric mucosa with chronic inflammation. Has got 2 PRBC Getting IV venofer today Hb 9 stable IV PPI GI evaluation noted. From GI's note today, patient is unsure about pursing endoscopy Hypoxic respiratory failure Odynophagia Recent parathyroidectomy on 08/19/2024 CT chest showed resolving pneumonia ENT recs noted. No Nasopharyneal exam noted at this time. Humidified air, hot tea with honey, throat lozenges and voice rest recommended Severe Hypocalcemia Hypokalemia Repletion per Nephrology Continue calcitriol, IV calcium Elevated high sensitive troponin in setting of ESRD History of CAD Likely demand ischemia Hypotension High sensitive troponin of 73 on admission; was previously 294 on 08/21 Patient denies any chest pain Off levophed Continue midodrine History of atrial fibrillation- Continue amiodarone twice a day until 08/31; then switch over to once a day. Eliquis stopped due to GIB ESRD on HDnephrology consulted; MWF dialysis Hyperlipidemiacontinue Lipitor Type 2 diabetes mellituscontinue on insulin SSI Updated at bedside Full code DVT prophylaxis SCDs for now I spent a total of 50 minutes coordinating, documenting and providing care for this patient excluding time spent in performance of separately billed services Admission and Anticipated Discharge Date Admission Date: August 28, 2024 Subjective Patient seen and examined Reports feeling better today No BM since yesterday Reports odynophagia is improving Minimal cough Off iv pressors Physical Exam Constitutional: + well hydrated; no acute distress Eyes: PERRL, conjunctivae normal, anicteric sclerae ENMT: external ear and nose normal, oropharynx normal Respiratory: normal respiratory effort; no respiratory distress Diminished breath sounds Cardiovascular: Rate/Rhythm: regular rate and regular rhythm Gastrointestinal (Abdomen): normal bowel sounds, soft, nontender, no hepatosplenomegaly Musculoskeletal: No pedal edema Neurologic: PERRL, EOMI, accommodation nl, no face palsy, no dysarthria Psychiatric: A+Ox3, euthymic affect Results & Data Results & Data Vital Signs (Past 12 Hours) Vital Signs Temp Pulse Resp BP BP Pulse Ox O2 Del Method 08/30/24 08:35 97/33 L 08/30/24 06:00 70 23 97/52 L 96 Nasal Cannula 08/30/24 05:00 67 19 112/52 L 96 Nasal Cannula 08/30/24 04:20 36.6 C 08/30/24 04:00 68 22 105/55 L 99 Nasal Cannula 08/30/24 03:00 72 23 107/54 L 95 Nasal Cannula 08/30/24 02:00 67 24 115/58 L 95 Nasal Cannula 08/30/24 01:00 82 20 118/59 L 94 Nasal Cannula 08/30/24 00:41 36.5 C O2 Flow Rate 08/30/24 08:35 08/30/24 06:00 2 08/30/24 05:00 2 08/30/24 04:20 08/30/24 04:00 2 08/30/24 03:00 2 08/30/24 02:00 2 08/30/24 01:00 2 08/30/24 00:41 Laboratory Results Abnormal lab results 08/29/24 08/29/24 08/29/24 Range/Units 16:25 22:09 22:52 WBC 11.39 H (4.8-10.8) K/ul RBC 2.84 L (4.70-6.10) M/uL Hgb 9.0 L (14.0-18.0) g/dl Hct 26.6 L (42.0-52.0) % RDW Std Deviation 63.6 H (36.4-46.3) fL RDW Coeff of Grace 19.0 H (11.5-14.5) % Neut # (Auto) 7.46 H (1.40-6.50) K/uL Lymph # (Auto) 1.13 L (1.20-3.40) K/uL Gray # (Auto) 1.63 H (0.11-0.59) K/uL Eos # (Auto) 0.69 H (0.00-0.50) K/uL Immature Gran # (Auto) 0.44 H (0.01-0.20) K/uL Sodium (136-145) mmol/L BUN 46 H D (6-23) mg/dl Creatinine 5.78 H* D (0.6-1.4) mg/dl BUN/Creatinine Ratio 8.0 L (10-20) Glucose (70-99(Fasting)) mg/dl POC Glucose (70-99) mg/dl POC Glucose (other) 158 H 100 H (70-99) mg/dl Calcium 7.4 L (8.6-10.3) mg/dl Ionized Calcium 1.03 L (1.12-1.32) mmol/L Iron 24 L (35-175) mcg/dl TIBC 213 L (250-450) mcg/dl Transferrin 152 L (200-360) mg/dl Transferrin % Sat 11 L (20-50) % 08/30/24 08/30/24 08/30/24 Range/Units 03:10 03:10 03:10 WBC (4.8-10.8) K/ul RBC (4.70-6.10) M/uL Hgb (14.0-18.0) g/dl Hct (42.0-52.0) % RDW Std Deviation (36.4-46.3) fL RDW Coeff of Grace (11.5-14.5) % Neut # (Auto) (1.40-6.50) K/uL Lymph # (Auto) (1.20-3.40) K/uL Gray # (Auto) (0.11-0.59) K/uL Eos # (Auto) (0.00-0.50) K/uL Immature Gran # (Auto) (0.01-0.20) K/uL Sodium 135 L (136-145) mmol/L BUN 47 H 47 H (6-23) mg/dl Creatinine 6.50 H* D 6.39 H* (0.6-1.4) mg/dl BUN/Creatinine Ratio 7.2 L (10-20) Glucose (70-99(Fasting)) mg/dl POC Glucose (70-99) mg/dl POC Glucose (other) (70-99) mg/dl Calcium (8.6-10.3) mg/dl Ionized Calcium (1.12-1.32) mmol/L Iron (35-175) mcg/dl TIBC (250-450) mcg/dl Transferrin (200-360) mg/dl Transferrin % Sat (20-50) % 08/30/24 08/30/24 08/30/24 Range/Units 03:10 03:10 03:10 WBC (4.8-10.8) K/ul RBC (4.70-6.10) M/uL Hgb (14.0-18.0) g/dl Hct (42.0-52.0) % RDW Std Deviation (36.4-46.3) fL RDW Coeff of Grace (11.5-14.5) % Neut # (Auto) (1.40-6.50) K/uL Lymph # (Auto) (1.20-3.40) K/uL Gray # (Auto) (0.11-0.59) K/uL Eos # (Auto) (0.00-0.50) K/uL Immature Gran # (Auto) (0.01-0.20) K/uL Sodium (136-145) mmol/L BUN (6-23) mg/dl Creatinine (0.6-1.4) mg/dl BUN/Creatinine Ratio 7.4 L (10-20) Glucose 182 H 182 H (70-99(Fasting)) mg/dl POC Glucose (70-99) mg/dl POC Glucose (other) (70-99) mg/dl Calcium 7.6 L 7.7 L (8.6-10.3) mg/dl Ionized Calcium 1.06 L (1.12-1.32) mmol/L Iron (35-175) mcg/dl TIBC (250-450) mcg/dl Transferrin (200-360) mg/dl Transferrin % Sat (20-50) % 08/30/24 08/30/24 08/30/24 Range/Units 07:09 07:29 07:49 WBC 12.60 H (4.8-10.8) K/ul RBC 2.86 L (4.70-6.10) M/uL Hgb 9.0 L (14.0-18.0) g/dl Hct 27.7 L (42.0-52.0) % RDW Std Deviation 66.0 H (36.4-46.3) fL RDW Coeff of Grace 19.0 H (11.5-14.5) % Neut # (Auto) (1.40-6.50) K/uL Lymph # (Auto) (1.20-3.40) K/uL Gray # (Auto) (0.11-0.59) K/uL Eos # (Auto) (0.00-0.50) K/uL Immature Gran # (Auto) (0.01-0.20) K/uL Sodium (136-145) mmol/L BUN 49 H (6-23) mg/dl Creatinine 6.48 H* (0.6-1.4) mg/dl BUN/Creatinine Ratio 7.6 L (10-20) Glucose 160 H (70-99(Fasting)) mg/dl POC Glucose 174 H (70-99) mg/dl POC Glucose (other) (70-99) mg/dl Calcium 7.9 L (8.6-10.3) mg/dl Ionized Calcium 1.09 L (1.12-1.32) mmol/L Iron (35-175) mcg/dl TIBC (250-450) mcg/dl Transferrin (200-360) mg/dl Transferrin % Sat (20-50) % 08/30/24 Range/Units 11:18 WBC (4.8-10.8) K/ul RBC (4.70-6.10) M/uL Hgb (14.0-18.0) g/dl Hct (42.0-52.0) % RDW Std Deviation (36.4-46.3) fL RDW Coeff of Grace (11.5-14.5) % Neut # (Auto) (1.40-6.50) K/uL Lymph # (Auto) (1.20-3.40) K/uL Gray # (Auto) (0.11-0.59) K/uL Eos # (Auto) (0.00-0.50) K/uL Immature Gran # (Auto) (0.01-0.20) K/uL Sodium (136-145) mmol/L BUN (6-23) mg/dl Creatinine (0.6-1.4) mg/dl BUN/Creatinine Ratio (10-20) Glucose (70-99(Fasting)) mg/dl POC Glucose 123 H (70-99) mg/dl POC Glucose (other) (70-99) mg/dl Calcium (8.6-10.3) mg/dl Ionized Calcium (1.12-1.32) mmol/L Iron (35-175) mcg/dl TIBC (250-450) mcg/dl Transferrin (200-360) mg/dl Transferrin % Sat (20-50) %
--- NOTE | 2024-08-30 12:53 | Oral/Maxillofacial Consult ---
Date of Consultation August 29, 2024 Assessment & Plan (1) Voice hoarsenesses: (2) History of recent surgery: (3) Sore throat and laryngitis: History of Present Illness Attending Physician: Etelvina Odell MD History of Present Illness I evaluated Elkin on August 29 and. He is about 10-12 s/p parathyroid gland removal at [facility]. The neck surgical site looks great, minimal swelling, no hematoma or signs of infection. Able to swallow with some discomfort but no aspiration. This has actually gotten better over the last 24 hours. Main issue is the voice- improvement noted as of last night. Given the recent parathyroid surgery I reassured Elkin and his that this is most likely due to the anaesthesia tube, retraction, swelling and surgical manipulation. I suggested drinking as much as possible and ice pop to keep his throat as moist as possible. I do not feel a Nasopharyngoscope examination is indicated at this time. I reassured Elkin that I have seen this many times and hopefully over the next week or so he will see improvement. I strongly suggest: Hot tea with honey to counteract the nasal O2 dryness Humidified air Throat lozenges Voice rest. Given the fact that Elkin sees improvement I fee this is a self limiting issues and will resolve over the next week of so. Allergies Allergy/AdvReac Type Severity Reaction Status Date / Time cephalexin Allergy Severe Tongue and Verified 08/21/24 20:53 face swelling tamsulosin Allergy Severe angioedema Verified 08/21/24 20:53 Home Medications Medication Instructions Recorded Confirmed Type atorvastatin 80 mg tablet 80 mg PO HS 07/01/22 08/28/24 History finasteride 5 mg tablet 5 mg PO DAILY 07/01/22 08/28/24 History vitamins no.144-folic 2 tab PO DAILY 06/08/24 08/28/24 History acid 400 mcg chewable tablet () torsemide 100 mg tablet 100 mg PO SuTuThSa@0900,2100 #32 06/16/24 08/28/24 Rx tabs calcitriol 0.25 mcg capsule 1 mcg PO BID 08/21/24 08/28/24 History calcium acetate(phosphat bind) 667 1,334 mg PO BID 08/21/24 08/28/24 History mg capsule lanthanum 750 mg chewable tablet 750 mg PO TIDWMEAL 08/21/24 08/28/24 History (Fosrenol) triamcinolone acetonide 0.1 % 1 applic topical BID PRN Itching 08/21/24 08/28/24 History topical cream apixaban 5 mg tablet (Eliquis) 5 mg PO BID 30 days #60 tabs 08/25/24 08/28/24 Rx midodrine 5 mg tablet 5 mg PO BID #60 tabs 08/25/24 08/28/24 Rx pantoprazole 40 mg tablet,delayed 40 mg PO DAILY #30 tabs 08/25/24 08/28/24 Rx release amiodarone 200 mg tablet 200 mg PO UD 08/28/24 08/28/24 History Patient History Medical History Anemia Gastric nodule Type 2 diabetes mellitus NIDDM Bifascicular block ongoing since 2010 Umbilical hernia chronic per patient-denies change or worsening History of blood transfusion pre-op aortic valve replacement CAD (coronary artery disease) s/p 1 stent in 2018 HTN (hypertension) controlled, stable per pt History of diverticulitis entered into EMR 09/2022-patient states last flare was 1 year ago History of colon polyps BPH (benign prostatic hyperplasia) CKD (chronic kidney disease), stage V Arthritis Hx of bladder cancer surgery only Hyperlipidemia Surgical History History of cataract surgery left and right H/O cystoscopy History of tooth extraction Aortic valve replaced 2019 at [facility] (followed by Dr. 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: No Beliefs That Will Affect Care: None Current Living Situation: Spouse Feels Safe at Home: Yes Safety Concerns: Feels Safe At This Time Assistive Devices: Cane Results & Data Vital Signs (Past 12 Hours) Vital Signs Temp Pulse Resp BP BP Pulse Ox O2 Del Method 08/30/24 08:35 97/33 L 08/30/24 06:00 70 23 97/52 L 96 Nasal Cannula 08/30/24 05:00 67 19 112/52 L 96 Nasal Cannula 08/30/24 04:20 36.6 C 08/30/24 04:00 68 22 105/55 L 99 Nasal Cannula 08/30/24 03:00 72 23 107/54 L 95 Nasal Cannula 08/30/24 02:00 67 24 115/58 L 95 Nasal Cannula 08/30/24 01:00 82 20 118/59 L 94 Nasal Cannula O2 Flow Rate 08/30/24 08:35 08/30/24 06:00 2 08/30/24 05:00 2 08/30/24 04:20 08/30/24 04:00 2 08/30/24 03:00 2 08/30/24 02:00 2 08/30/24 01:00 2 PG Care Time/CCT Total # of Minutes Spent Total Time Spent with Patient: Total time spent is greater than 50% in coordination of care (as documented) at patient's floor/unit and/or counseling patient: Coding Level of Care Code 29478 OP VST NEW LOW 30 MIN Diagnoses Voice hoarsenesses R49.0 History of recent surgery Z98.890 Sore throat and laryngitis J06.0
[2024-08-30] MEDS ORDERED: COUGH DROP (SUGAR FREE) LOZ 24 LOZ/1 BOX BUCCAL PRN (13:03)
--- NOTE | 2024-08-30 17:24 | Critical Care Progress Note ---
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 - Evidence of resolving pneumonia CV: History atrial fibrillation with rapid ventricular response - On discharge patient was started on oral amiodarone, transitioned to Eliquis for at least 30 days given episode of atrial fibrillation mentations for continuing PT for GI protection - Discussed briefly with cardiology, trial of anticoagulation was to see if velocities improve which have not - Patient has had 2 subsequent episodes of symptomatic GI bleeding and is in normal sinus rhythm - Ongoing anticoagulation presents higher risk versus stroke risk at this time, should follow-up with cardiology as an outpatient prior to reinitiating anticoagulation for paroxysmal atrial fibrillation History of transcatheter aortic valve replacement (TAVR): History hypertension: May need to revisit once calcium levels stabilize Hypotension: Suspect largely artifactual and related to peripheral vascular disease. In the ED cuff pressure was significantly different from arterial line. Looking at prior admissions patient has lower ranging blood pressures without symptomatology. If this were to occur I feel it be appropriate to obtain a lactic acid after period of possible hypotension to check for endorgan perfusion, patient also clinically asymptomatic during many of these events per report. Fluids/Renal: End-stage kidney disease (stage V) on hemodialysis Thursday - Discussed with nephrology ID: Discontinue anti-infectives given culture data from urine GI/Nutrition: Gastrointestinal hemorrhage: Reviewed GI consultation - Reviewed prior EGD from May - Transition to PPI twice daily once infusion completed Heme: Systemic anticoagulation risks outweigh benefits at this point. May need to revisit future versus outpatient cardiology DVT prophylaxis: Chemical prophylaxis contraindicated, SCDs Endocrine: ICU hyperglycemia protocol Hyperparathyroidism secondary to end-stage kidney disease - Underwent recent parathyroidectomy Postsurgical hypoparathyroidism and hypocalcemia: Improved - Aggressive calcium repletion Vascular access: Discontinue invasive arterial line and central venous catheter Code Status: Full code - In brief discussion with patient and at bedside they are unaware of likelihood of successful resuscitation in the event of cardiac arrest. Given multiple comorbidities may benefit from discussion regarding goals of care. Disposition: Patient stable for downgrade out of ICU (2) Emphysema lung: (3) Pacemaker: (4) Atrial fibrillation with rapid ventricular response: (5) History of transcatheter aortic valve replacement (TAVR): (6) End-stage renal disease on hemodialysis: (7) CKD (chronic kidney disease) stage 5, GFR less than 15 ml/min: (8) CAD (coronary artery disease): Admission and Anticipated Discharge Date Admission Date: August 28, 2024 Physical Exam Physical Exam: General: Alert. nontoxic. Skin: Warm, dry, Head: Atraumatic Ears, nose, mouth and throat: airway patent Cardiovascular: Normal peripheral perfusion Respiratory: no respiratory distress Gastrointestinal: Non distended Musculoskeletal: No deformity Results & Data Results & Data Vital Signs (Past 12 Hours) Vital Signs Temp Pulse Resp BP BP Pulse Ox O2 Del Method 08/30/24 16:12 99 Nasal Cannula 08/30/24 16:00 67 19 87 L Room Air 08/30/24 16:00 110/52 L 08/30/24 16:00 110/52 L 08/30/24 15:00 67 25 H 92 08/30/24 15:00 115/66 08/30/24 14:50 94/78 L 08/30/24 14:30 68 21 92 08/30/24 14:12 79 29 H 08/30/24 13:09 68 25 H 96 08/30/24 13:00 105/81 08/30/24 13:00 105/81 08/30/24 12:57 69 20 93 08/30/24 12:03 72 20 86 L 08/30/24 12:00 93/56 L 08/30/24 12:00 93/56 L 08/30/24 12:00 93/56 L 08/30/24 12:00 36.7 C 08/30/24 11:57 66 15 94 08/30/24 11:27 67 23 94 08/30/24 11:01 103/51 L 08/30/24 11:01 103/51 L 08/30/24 10:45 63 19 97 08/30/24 10:03 65 26 H 90 08/30/24 10:00 126/60 08/30/24 10:00 126/60 08/30/24 09:57 66 23 93 08/30/24 09:15 67 25 H 96 08/30/24 08:35 97/33 L 08/30/24 08:00 65 21 98 08/30/24 08:00 126/59 L 08/30/24 08:00 Room Air 08/30/24 08:00 70 97/52 L 08/30/24 07:00 66 24 98 Room Air 08/30/24 07:00 122/60 08/30/24 06:00 70 23 97/52 L 96 Nasal Cannula O2 Flow Rate 08/30/24 16:12 2 08/30/24 16:00 08/30/24 16:00 08/30/24 16:00 08/30/24 15:00 08/30/24 15:00 08/30/24 14:50 08/30/24 14:30 08/30/24 14:12 08/30/24 13:09 08/30/24 13:00 08/30/24 13:00 08/30/24 12:57 08/30/24 12:03 08/30/24 12:00 08/30/24 12:00 08/30/24 12:00 08/30/24 12:00 08/30/24 11:57 08/30/24 11:27 08/30/24 11:01 08/30/24 11:01 08/30/24 10:45 08/30/24 10:03 08/30/24 10:00 08/30/24 10:00 08/30/24 09:57 08/30/24 09:15 08/30/24 08:35 08/30/24 08:00 08/30/24 08:00 08/30/24 08:00 08/30/24 08:00 08/30/24 07:00 08/30/24 07:00 08/30/24 06:00 2 Critical Care Results & Data Vital Signs (Past 12 Hours) Vital Signs Temp Pulse Resp BP BP Pulse Ox O2 Del Method 08/30/24 16:12 99 Nasal Cannula 08/30/24 16:00 67 19 87 L Room Air 08/30/24 16:00 110/52 L 08/30/24 16:00 110/52 L 08/30/24 15:00 67 25 H 92 08/30/24 15:00 115/66 08/30/24 14:50 94/78 L 08/30/24 14:30 68 21 92 08/30/24 14:12 79 29 H 08/30/24 13:09 68 25 H 96 08/30/24 13:00 105/81 08/30/24 13:00 105/81 08/30/24 12:57 69 20 93 08/30/24 12:03 72 20 86 L 08/30/24 12:00 93/56 L 08/30/24 12:00 93/56 L 08/30/24 12:00 93/56 L 08/30/24 12:00 36.7 C 08/30/24 11:57 66 15 94 08/30/24 11:27 67 23 94 08/30/24 11:01 103/51 L 08/30/24 11:01 103/51 L 08/30/24 10:45 63 19 97 08/30/24 10:03 65 26 H 90 08/30/24 10:00 126/60 08/30/24 10:00 126/60 08/30/24 09:57 66 23 93 08/30/24 09:15 67 25 H 96 08/30/24 08:35 97/33 L 08/30/24 08:00 65 21 98 08/30/24 08:00 126/59 L 08/30/24 08:00 Room Air 08/30/24 08:00 70 97/52 L 08/30/24 07:00 66 24 98 Room Air 08/30/24 07:00 122/60 08/30/24 06:00 70 23 97/52 L 96 Nasal Cannula O2 Flow Rate 08/30/24 16:12 2 08/30/24 16:00 08/30/24 16:00 08/30/24 16:00 08/30/24 15:00 08/30/24 15:00 08/30/24 14:50 08/30/24 14:30 08/30/24 14:12 08/30/24 13:09 08/30/24 13:00 08/30/24 13:00 08/30/24 12:57 08/30/24 12:03 08/30/24 12:00 08/30/24 12:00 08/30/24 12:00 08/30/24 12:00 08/30/24 11:57 08/30/24 11:27 08/30/24 11:01 08/30/24 11:01 08/30/24 10:45 08/30/24 10:03 08/30/24 10:00 08/30/24 10:00 08/30/24 09:57 08/30/24 09:15 08/30/24 08:35 08/30/24 08:00 08/30/24 08:00 08/30/24 08:00 08/30/24 08:00 08/30/24 07:00 08/30/24 07:00 08/30/24 06:00 2 Lab & Micro Results (Past 24 Hours) RBC 2.86 M/uL (4.70-6.10) L 08/30/24 WBC 12.60 K/ul (4.8-10.8) H 08/30/24 Hgb 9.0 g/dl (14.0-18.0) L 08/30/24 Hct 27.7 % (42.0-52.0) L 08/30/24 MCV 96.9 fL (80.0-100.0) 08/30/24 MCH 31.5 pg (25.0-34.0) 08/30/24 MCHC 32.5 g/dL (32.0-36.0) 08/30/24 RDW Standard Deviation 66.0 fL (36.4-46.3) H 08/30/24 RDW Coefficient of Variation 19.0 % (11.5-14.5) H 08/30/24 Plt Count 170 K/uL (130-400) 08/30/24 MPV 11.0 fL (9.4-12.4) 08/30/24 Neutrophils (%) (Auto) 65.4 % 08/29/24 Lymphocytes (%) (Auto) 9.9 % 08/29/24 Monocytes # (Auto) 1.63 K/uL (0.11-0.59) H 08/29/24 Eosinophils # (Auto) 0.69 K/uL (0.00-0.50) H 08/29/24 Immature Granulocyte % (Auto) 3.9 % 08/29/24 Neutrophils # (Auto) 7.46 K/uL (1.40-6.50) H 08/29/24 Lymphocytes # (Auto) 1.13 K/uL (1.20-3.40) L 08/29/24 Monocytes # (Auto) 1.63 K/uL (0.11-0.59) H 08/29/24 Eosinophils # (Auto) 0.69 K/uL (0.00-0.50) H 08/29/24 Basophils # (Auto) 0.04 K/uL (0.00-0.20) 08/29/24 Immature Granulocyte # (Auto) 0.44 K/uL (0.01-0.20) H 08/29 Na 137 mmol/L (136-145) 08/30/24 K 4.7 mmol/L (3.5-5.1) 08/30/24 Cl 103 mmol/L (98-107) 08/30/24 CO2 28 mmol/L (21-32) 08/30/24 Anion Gap 6 (3-11) 08/30/24 BUN 49 mg/dl (6-23) H 08/30/24 Creatinine 6.48 mg/dl (0.6-1.4) H* 08/30/24 BUN/Creatinine Ratio 7.6 (10-20) L 08/30/24 Glu 160 mg/dl (70-99(Fasting)) H 08/30/24 Ca 7.9 mg/dl (8.6-10.3) L 08/30/24 Mg 2.4 mg/dl (1.7-2.4) 08/30/24 07:09 Calcium Level 7.9 mg/dl (8.6-10.3) L 08/30/24 07:09 Ionized Calcium 1.09 mmol/L (1.12-1.32) L 08/30/24 13:03 Microbiology 08/28/24 15:45 Urine Culture - Final Urine,Clean Catch No growth - less than 1,000 colonies/mL. I & O Totals 24 Hours 08/29/24 08/30/24 08/31/24 06:59 06:59 06:59 Intake Total 2021.641 / 2021.64 2588.142 / 2588.142 673.992 / 673.992 Output Total 300 / 300 500 / 500 52 / 52 Balance 1722.641 / 5200.071 8270.142 / 2087. 621.992 / 621.992 Cumulative 08/28/24 11:46 thru 08/30/24 16:00 Intake Total 5284.775 Output Total 852 Balance 4432.775 RT Ventilator Mngmt (Last Documented) Ventilator Ordered Settings Respiratory Rate 19 08/30/24 16:00 Ventilator - PT Measurements Respiratory Rate 19 Coding Level of Care Code 51967 SUB INP/OBS CARE 2/35MIN Diagnoses Acute GI bleeding K92.2 Pulmonary emphysema, unspecified emphysema type J43.9 Emphysema type: unspecified Pacemaker Z95.0 Atrial fibrillation with rapid ventricular response I48.91 History of transcatheter aortic valve replacement (TAVR) Z95.2 End-stage renal disease on hemodialysis N18.6; Z99.2 CKD (chronic kidney disease) stage 5, GFR less than 15 ml/min N18.5 CAD (coronary artery disease) I25.10 (2) Emphysema lung Emphysema type: unspecified Qualified Code(s): J43.9 - Emphysema, unspecified
[2024-08-30] MEDS: PANTOprazole 40 MG in SYRINGE BID IV SCH (20:10)
[2024-08-31 05:25] LABS: Hematocrit (blood only) 27.2 % (42.0-52.0); Hemoglobin 8.7 g/dl (14.0-18.0); Mean Corpuscular Hemoglobin 31.9 pg (25.0-34.0); Mean Corpuscular Volume 99.6 fL (80.0-100.0); Platelet Count 151 K/uL (130-400); RDW Coefficient of Variation 18.9 % (11.5-14.5); RDW Standard Deviation 66.9 fL (36.4-46.3); Red Blood Count 2.73 M/uL (4.70-6.10); White Blood Count 11.32 K/ul (4.8-10.8)
[2024-08-31 05:41] LABS: Calcium 6.8 mg/dl (8.6-10.3); Magnesium 2.3 mg/dl (1.7-2.4); Potassium 4.9 mmol/L (3.5-5.1)
[2024-08-31 05:48] LABS: BUN Creatinine Ratio 6.5 (10-20); Creatinine Clr Calc Pharmacy 8.1 ml/min
[2024-08-31] MEDS: CALCIUM GLUCONATE 1,000 MG/60 ML BAG IV SCH (06:17)
[2024-08-31] MEDS ORDERED: SODIUM CHLORIDE 0.9% 1,000 ML IV PRN (07:00)
[2024-08-31] MEDS: EPOETIN ALFA 20,000 UNITS/ML VIAL IV ONE (10:32)
[2024-08-31] MEDS: IRON SUCROSE IV ONE (10:33)
--- NOTE | 2024-08-31 10:53 | Communication Note ---
Date of Service: August 31, 2024 Received notification that patient's family had questions about GI management. Went to ICU to see patient/family. No family at bedside. From a GI standpoint, there are no current inpatient plans for invasive work-up. Continue to monitor for overt GI bleeding. Continue to monitor H/H. 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 As previously recommended after his last EGD, would ensure supportive care with frequent monitoring of his H/H as an outpatient. Discussed with Dr. Snyder who will be seeing the patient as well. I examined the patient and reviewed patient's chart , laboratory data and imaging studies. I agree with with assessment and plan of care as suggested by advanced practice provider. Spoke with the patient and his . is concerned about the source of recent rectal bleeding. She is asking about possible outpatient colonoscopy if bleeding recurs. Recommended to call our office for recurrent bleeding. The patient would like to be discharged home soon.
--- NOTE | 2024-08-31 16:50 | Nephrology Progress Note ---
Date of Service August 31, 2024 Assessment & Plan (1) ESRD on dialysis: Plan: MWF HD > uneventful HD 08/29 w/ 900 mL UF >next HD 08/31 or as needs dictate; may need pressor support; monitor for dialysis need daily >>>>>low iron stores t sat 11%> needs IV iron and started load > has had 2 doses so far Care coordinated w/ Dr Aguilera in person re Ca supplements, UF goal, next HD, baseline BPs; we are in agreement. (2) Hypocalcemia: Plan: improving but initially severe and expected post parathyroidectomy but hoarseness/dysphagia unexpected >> ? relation to recent surgery +/- to recent PNA mag 2.3 today; Ca 7.9 > 6.8 >agree w/ ENT eval > calcitriol 1 gm bid to continue >>>>> continue IV calcium as needed >> needed another 3 gm IV today >will hold off on po Ca for now >>>ordered repeat Ca for 1699 -continue phosLo (calcium rich) phos binder for now; but monitor for need/opportunity to change back to fosrenol >>>>> K 4.9 pre HD now on no supplements and would not resume >continue to replete mag as needed/able and do it IV - none needed today (3) Hypotension (arterial): Plan: continue pressor as needed on HD; continue max dose midodrine fine w/ stopping diuretic; doubt this or finasteride has much BP impact however (4) Rectal bleeding: Plan: continue to monitor; as per primary service, critical care, GI; may need to d/w cardiology re jenna; hgb stable/hovering about 9 Admission and Anticipated Discharge Date Admission Date: August 28, 2024 Subjective SEEN ON DIALYSIS. delayed note entered for 915 am eval today; no interval events overnight though ca dropped again, needed repletion. tolerating hd well and tried for higher uf (slight) from 1.3 >1.5L Review of Systems 2 Review of Systems: All systems reviewed & are unremarkable except as noted in Subjective Physical Exam 2 Constitutional: well developed and well nourished Eyes: EOM intact bilaterally ENMT: Mouth: + muffled voice (speaks in a bit louder today whisper and limits words) and + dry oral mucous membranes Respiratory: normal respiratory effort Auscultation: + diminished lung sounds, + crackles (some fine idffuse) and + rhonchi (a few) Cardiovascular: Rate/Rhythm: regular rate and regular rhythm Heart Sounds: + murmur Extremities: + edema (trace) and + AV fistula Gastrointestinal (Abdomen): Inspection/Auscultation: normal bowel sounds P ercussion/Palpation: abdomen soft; abdomen nontender Musculoskeletal: Extremities: strength 5/5 throughout Skin: no rashes, warm and dry Results & Data Vital Signs (Past 12 Hours) Vital Signs Temp Pulse Pulse Resp BP BP Pulse Ox 08/31/24 15:21 93 H 29 H 08/31/24 15:01 115/51 L 08/31/24 15:01 115/51 L 08/31/24 14:54 55 L 23 95 08/31/24 14:24 82 28 H 94 08/31/24 13:06 81 21 95 08/31/24 13:01 80/48 L 08/31/24 13:01 80/48 L 08/31/24 12:57 57 L 23 96 08/31/24 12:36 78 25 H 96 08/31/24 12:35 100/48 L 08/31/24 12:35 100/48 L 08/31/24 12:35 36.6 C 76 100/48 L 08/31/24 12:35 100/48 L 08/31/24 12:35 100/48 L 08/31/24 12:30 61 99/42 L 08/31/24 12:30 63 24 95 08/31/24 12:15 56 L 20 95 08/31/24 12:00 77 110/74 08/31/24 11:38 75 92/34 L 08/31/24 11:30 71 110/65 08/31/24 11:30 110/65 08/31/24 11:30 110/65 08/31/24 11:27 72 19 96 08/31/24 11:03 71 21 97 08/31/24 11:00 70 123/59 L 08/31/24 11:00 123/59 L 08/31/24 10:39 69 21 99 08/31/24 10:30 70 133/58 L 08/31/24 10:12 69 17 99 08/31/24 10:00 125/53 L 08/31/24 10:00 69 125/53 L 08/31/24 09:57 70 21 97 08/31/24 09:30 120/65 08/31/24 09:30 68 19 99 08/31/24 09:30 68 120/65 08/31/24 09:12 69 19 99 08/31/24 09:00 116/50 L 08/31/24 09:00 68 116/50 L 08/31/24 08:57 69 23 97 08/31/24 08:57 36.6 C 70 08/31/24 08:53 104/50 L 08/31/24 08:45 69 23 96 08/31/24 08:06 69 23 97 08/31/24 08:00 66 08/31/24 07:18 68 23 98 08/31/24 07:00 101/59 L 08/31/24 07:00 101/59 L 08/31/24 06:54 66 20 95 08/31/24 06:12 69 18 96 08/31/24 06:00 109/49 L 08/31/24 06:00 109/49 L 08/31/24 06:00 109/49 L 08/31/24 05:57 66 17 98 08/31/24 05:12 64 18 97 O2 Del Method 08/31/24 15:21 08/31/24 15:01 08/31/24 15:01 08/31/24 14:54 08/31/24 14:24 08/31/24 13:06 08/31/24 13:01 08/31/24 13:01 08/31/24 12:57 08/31/24 12:36 08/31/24 12:35 08/31/24 12:35 08/31/24 12:35 08/31/24 12:35 08/31/24 12:35 08/31/24 12:30 08/31/24 12:30 08/31/24 12:15 08/31/24 12:00 08/31/24 11:38 08/31/24 11:30 08/31/24 11:30 08/31/24 11:30 08/31/24 11:27 08/31/24 11:03 08/31/24 11:00 08/31/24 11:00 08/31/24 10:39 08/31/24 10:30 08/31/24 10:12 08/31/24 10:00 08/31/24 10:00 08/31/24 09:57 08/31/24 09:30 08/31/24 09:30 08/31/24 09:30 08/31/24 09:12 08/31/24 09:00 08/31/24 09:00 08/31/24 08:57 08/31/24 08:57 08/31/24 08:53 08/31/24 08:45 08/31/24 08:06 08/31/24 08:00 08/31/24 07:18 08/31/24 07:00 08/31/24 07:00 08/31/24 06:54 Room Air 08/31/24 06:12 08/31/24 06:00 08/31/24 06:00 08/31/24 06:00 08/31/24 05:57 08/31/24 05:12 Laboratory Results 08/31/24 04:54 08/31/24 04:54
[2024-08-31] MEDS: CALCIUM GLUCONATE 1,000 MG/60 ML BAG IV STA (21:40)
[2024-09-01 04:21] VITALS: RESP 18
[2024-09-01 05:23] LABS: Calcium 7.5 mg/dl (8.6-10.3)
[2024-09-01 05:32] LABS: BUN Creatinine Ratio 4.9 (10-20); Creatinine Clr Calc Pharmacy 10.7 ml/min
[2024-09-01 07:24] VITALS: BP 105/64; TEMP 99.1
[2024-09-01] MEDS: CALCIUM GLUCONATE 1,000 MG/60 ML BAG IV STA (08:15)
[2024-09-01] MEDS: AMIODARONE 200 MG TAB PO SCH (08:18)
--- NOTE | 2024-09-01 10:20 | Nephrology Progress Note ---
Date of Service September 01, 2024 Assessment & Plan (1) ESRD on dialysis: Plan: MWF HD > uneventful HD 08/29 w/ 900 mL UF, 08/31 w/ 1.5L >next HD 09/02 ; see below >>>>>low iron stores t sat 11%> needs IV iron and started load > has had 600 mg so far NEPHRO D/C RECS >> 1 mcg tid calcitriol (sic; note higher dose) >> TUMS E-X 750-750 chewable tablets 2 tabs tid >>phos Lo 1334 mg tid ac/snack >>fosrenol 1 tab tid ac >> labs at [facility] saturday 09/02 AM and Tuesday 09/05 and Thursday 09/07 both AM >> note all labs MUST be drawn in AM for same day review >> nephro nurse to order >> each draw needs bmp, ca, mag, phos; Leni nephro nurse to order and are aware of this >>due to potentially life-threatening low calcium levels after parathyroidectomy, he must take above meds and get labs as above; if unable to do so, contact home HD team immediately ->>report to [facility] to resume HHD training tomorrow >> Home Clinic will contact pt today with time -midodrine 5 mg bid to continue -stop torsemide at hospital d/c -per d/w cardiology no need for eliquis at d/c >>pls have him bring all med bottles to [facility] tomorrow for bottles out med reconciliation >>nephro f/u will be at the dialysis clinic Pt at bedside and I reviewed above w/ her Care coordinated w/ Dr Valiente via [employer] re Ca supplements adn other d/c meds, next HD, f/u labs; we are in agreement. Outpatient care w/ home HD RN and [facility] neph nurse team also coordinated as above. (2) Hypocalcemia: Plan: improving but initially severe and expected post parathyroidectomy but hoarseness/dysphagia unexpected >> ? relation to recent surgery +/- to recent PNA mag 2.3 today; Ca 7.9 > 6.8 > 7.5 today > meds as above (3) Hypotension (arterial): Plan: continue pressor as needed on HD; continue max dose midodrine fine w/ stopping diuretic; doubt this or finasteride has much BP impact however (4) Rectal bleeding: Plan: continue to monitor; as per primary service, critical care, GI; d/w cardiology re eliquis as above. hgb stable/hovering about 9; had 300 mg IV iron x 2 doses while here; will continue as OP Admission and Anticipated Discharge Date Admission Date: August 28, 2024 Subjective no interval events; ambulated w/ PT > mild sob no lightheadedness; tolerating po; voice improving some; wants to get home to get to [place], enjoy pansies, orchids Review of Systems 2 Review of Systems: All systems reviewed & are unremarkable except as noted in Subjective Physical Exam 2 Constitutional: well developed and well nourished Eyes: EOM intact bilaterally ENMT: Ears: + hearing impairment Mouth: + muffled voice (speaks in a bit louder today and not limiting words) and + dry oral mucous membranes Respiratory: normal respiratory effort Auscultation: + diminished lung sounds and + crackles (some fine idffuse) Cardiovascular: Rate/Rhythm: regular rate and regular rhythm Heart Sounds: + murmur Extremities: + edema (trace) and + AV fistula Gastrointestinal (Abdomen): Inspection/Auscultation: normal bowel sounds P ercussion/Palpation: abdomen soft; abdomen nontender Musculoskeletal: Extremities: strength 5/5 throughout Skin: no rashes, warm and dry Neurologic: ford, fluent speech, no tremor Psychiatric: Orientation: alert and oriented x 3 Results & Data Vital Signs (Past 12 Hours) Vital Signs Temp Pulse Pulse Resp BP Pulse Ox O2 Del Method 09/01/24 07:22 37.3 C 75 18 105/64 93 Nasal Cannula 09/01/24 04:00 36.4 C 79 18 99/38 L 92 Room Air 09/01/24 00:00 84 09/01/24 00:00 37.4 C 80 20 100/53 L 94 Nasal Cannula O2 Flow Rate 09/01/24 07:22 2.0 09/01/24 04:00 09/01/24 00:00 09/01/24 00:00 2 Laboratory Results 08/31/24 04:54 09/01/24 04:31 Ca 7.5 today, 7.7 last evening
[2024-09-01] MEDS ORDERED: IPRATROPIUM BROMIDE NEB SOLN 0.02% 0.5MG/2.5ML VIAL NEB PRN (10:55)
[2024-09-01] MEDS ORDERED: LEVALBUTEROL 1.25 MG/3 ML NEB NEB PRN (10:55)
[2024-09-01] MEDS: UMECLIDINIUM/VILANTEROL 62.5/25MCG 7 PUFFS/INHALER INH SCH (12:45)
[2024-09-01 13:18] VITALS: PULSE 75; O2SAT 93
--- NOTE | 2024-09-01 17:51 | Discharge Summary ---
Discharge Summary Date of Service September 01, 2024 Principal Dx & Hospital Course #1 = Principal Diagnosis (1) Acute GI bleeding: (2) Hypocalcemia: Plan 78 year old man with h/o CAD status post stent, aortic stenosis status post bio prosthetic valve, Mobitz type II status post pacemaker, hyperlipidemia, ESRD on hemodialysis, bladder cancer status postsurgery, type 2 diabetes mellitus, past tobacco use, possibly underlying COPD, hyperparathyroidism status post surgery on 08/19/2024 GI bleed Acute blood loss anemia History of atrial fibrillation on Eliquis Patient presented with melena and bright red blood per rectum for last 3 days. Recently started on Eliquis for AFib; last dose on 08/27 in am as per patient Hemoglobin down trended from 9.2 on 08/25 -8.2 on presentation Anti-Xa of 1.09 IU/mL S/p Kcentra in the ED History of endoscopy in June 10, 2024; linear erythema extending through the antrum to the pylorus; could be gastritis or possibly GAVE. Biopsy revealed gastric mucosa with chronic inflammation. Has got 2 PRBC Getting IV venofer today Hb 9 stable IV PPI GI evaluation noted. From GI's note today, patient is unsure about pursing endoscopy Hypoxic respiratory failure Odynophagia Recent parathyroidectomy on 08/19/2024 CT chest showed resolving pneumonia ENT recs noted. No Nasopharyneal exam noted at this time. Humidified air, hot tea with honey, throat lozenges and voice rest recommended Severe Hypocalcemia Hypokalemia Repletion per Nephrology Continue calcitriol, IV calcium Elevated high sensitive troponin in setting of ESRD History of CAD Likely demand ischemia Hypotension High sensitive troponin of 73 on admission; was previously 294 on 08/21 Patient denies any chest pain Off levophed Continue midodrine Possible Sepsis, POA History of atrial fibrillation- Continue amiodarone twice a day until 08/31; then switch over to once a day. Eliquis stopped due to GIB ESRD on HDnephrology consulted; MWF dialysis Hyperlipidemiacontinue Lipitor Type 2 diabetes mellituscontinue on insulin SSI Updated at bedside Full code DVT prophylaxis SCDs for now I spent a total of 50 minutes coordinating, documenting and providing care for this patient excluding time spent in performance of separately billed services Admission HPI Per Admitting Provider History obtained from interview with the patient, patient's spouse, discussion with ED provider and chart review. Past medical history of CAD status post stent, aortic stenosis status post bioprosthetic valve, Mobitz type II status post pacemaker, hyperlipidemia, ESRD on hemodialysis, bladder cancer status postsurgery, type 2 diabetes mellitus, past tobacco use, possibly underlying COPD, hyperparathyroidism status post surgery on 08/19/2024 Last admission from 08/21/2024 to 08/25/2024 for pneumonia; was found to be in atrial fibrillation with RVR after dialysis on 08/22; started on amiodarone and Eliquis. Patient presents to the ED with concern of bright red blood per rectum, melena since 08/26. Patient started to get weaker in the last couple of days which prompted him to be come to the ED. He reports being dizzy on presentation; improved with IV resuscitation He denies any abdominal pain, chest pain, shortness of breath or urinary symptoms. On presentation to the ED, he was hypotensive, afebrile and saturating well on room air. Hemoglobin was 8.2 on admission; was 9.2 on 08/25/2024. Patient was given IV fluid; central line and art line was placed. ICU and GI was consulted; patient to be admitted to ICU for observation Updated Medication List Medication Instructions Recorded Confirmed Type atorvastatin 80 mg tablet 80 mg PO HS 07/01/22 08/28/24 History finasteride 5 mg tablet 5 mg PO DAILY 07/01/22 08/28/24 History vitamins no.144-folic 2 tab PO DAILY 06/08/24 08/28/24 History acid 400 mcg chewable tablet () lanthanum 750 mg chewable tablet 750 mg PO TIDWMEAL 08/21/24 08/28/24 History (Fosrenol) triamcinolone acetonide 0.1 % 1 applic topical BID PRN Itching 08/21/24 08/28/24 History topical cream midodrine 5 mg tablet 5 mg PO BID #60 tabs 08/25/24 08/28/24 Rx amiodarone 200 mg tablet 200 mg PO DAILY #0 tabs 09/01/24 08/28/24 Rx calcitriol 0.25 mcg capsule 1 mcg (4 x 0.25 mcg) PO BID 30 09/01/24 Rx days #240 caps calcium acetate(phosphat bind) 667 1,334 mg (2 x 667 mg) PO TID #0 09/01/24 08/28/24 Rx mg capsule caps calcium carbonate (Tums E-X) 600 mg (2 x 300 mg (750 mg)) PO 09/01/24 Rx TID 30 days #180 tabs pantoprazole 40 mg tablet,delayed 40 mg PO BID #30 tabs 09/01/24 Rx release Hospital Stay Data Consultations 08/28/24 13:23 Consult Manager Critical Care Unit Stat 08/28/24 13:42 Consult Gastroenterology Routine 08/28/24 13:43 ED Decision to Admit Stat 08/28/24 15:00 Consult Nephrology Routine 08/29/24 12:12 Consult Otolaryngology (Head and Neck) Routine 08/31/24 09:41 Consult Patient Services Routine Diagnostic Imagining Performed 08/29/24 09:42 CT chest with contrast [CT chest diagnostic w con] Routine Pending Results Patient Have Any Pending Studies at Discharge: No Discharge Instructions Given to Patient (Per Discharging Provider) PLEASE REFER TO YOUR NEW MEDICATION LIST AND FOLLOW INSTRUCTIONS CAREFULLY. YOUR NEW MEDICATIONS INCLUDE: Protonix- antacid for GI bleed Stop Eliquis and Torsemide. Increase Calcitriol to 1 mcg TID Tums 2 tablets TID Anoro Ellipta- inhaler for emphysema Xopenex/Atrovent- nebulizer treatment as needed for shortness of breath/wheezing Please always use 2 L of oxygen while ambulating. PLEASE CALL YOUR PRIMARY CARE PHYSICIAN OR RETURN TO THE ER IF WITH WORSENING OF SYMPTOMS, INCLUDING abdominal pain, nausea, black or bloody stools, weakness, etc FOLLOW UP WITH PRIMARY CARE PHYSICIAN OUTLINED ABOVE. FOLLOW UP WITH MEDICAL FILE CLERK FOR HEMODIALYSIS.
--- NOTE | 2024-09-02 10:28 | Coding Query ---
To promote full compliance with coding requirements relating to patient care, provider participation is requested in all cases of wic site coordinator uncertainty. Please assist us with the question(s) below: Coding Question(s): The diagnosis below was documented in the communication report from 08/29/24 and then subsequently fell off all further documentation. Please indicate if it is still a possible diagnosis or ruled out. "He was also initiated on Zosyn overnight for possible UTI/sepsis" Physician's Response(s): UTI ( ) Diagnosed and POA ( ) Diagnosed and not POA ( x ) Ruled out ( ) Other (please specify) MTDD
[2024-09-02] MEDS ORDERED: SODIUM CHLORIDE 0.9% 1,000 ML IV PRN (12:06)
[2024-09-02] MEDS ORDERED: HEPARIN SOD (PORCINE) 1000 UNIT/ML IV ONE (12:06)
[2024-09-02] MEDS ORDERED: HEPARIN SOD (PORCINE) 1000 UNIT/ML IV SCH (12:15)
== END 2024-09-01 14:47 | disposition home or self-care (01) | DRG 871 ==
LOC: ED 11:46 → SUATTDRO 14:03 → 1E 14:03 → 2S 09-01 06:48

== ENCOUNTER 2024-09-02 10:42 | Inpatient (IN) ==
--- NOTE | 2024-09-02 11:03 | Emergency Department Note ---
Impression & Plan Sepsis, Pulmonary edema, Acute hypoxemic respiratory failure, Leukocytosis ED Provider Note HISTORY OF PRESENT ILLNESS: Patient is a 78-year-old male presenting with shortness of breath and confusion. brings the patient to the emergency department secondary to stating that she thought he was going to pass out and route to dialysis today. Patient was just discharged from the hospital yesterday. He reports that last night he started getting short of breath and was very short of breath this morning when he woke up. He does not wear any supplemental oxygen at baseline. reports that they were on their way to dialysis when the patient seemed to be very confused and she was concerned he was going to pass out. Patient denies any chest pain. Denies any cough. He did get a full dialysis session per the on Thursday. He is a Thursday/Thursday/Thursday dialysis patient. ROS: as above PHYSICAL EXAM: Constitutional: Patient appears in moderate distress. HENT: Head: Normocephalic and atraumatic. Eyes: EOMI, PERRL Mouth/Throat: Mucous membranes moist. Neck: Trachea midline. Neck supple. Cardiovascular: Tachycardic with regular rhythm. No murmurs, rubs or gallops. Intact distal pulses. Pulmonary/Chest: No respiratory distress. Breath sounds clear and equal bilaterally. Conversationally dyspneic. Hypoxic on room air and placed on 4 L nasal cannula. Pursed lip breathing. Abdominal: Abdomen soft, no tenderness, rebound or guarding. Musculoskeletal: No edema, tenderness or deformity noted. Skin: Warm and dry. No rash, erythema, pallor or cyanosis Psychiatric: Appropriate mood and affect for situation. Neurological: Alert and keenly responsive. CN II-XII grossly intact, moving all extremities equally and fully. MDM: - Vitals signs showed hypotension, tachycardia, tachypnea and hypoxia. Patient noted be febrile to 37.9 via or thermometer. - History obtained via patient and patient's . History as above. - Chronic conditions affecting care: ESRD; HTN; BPH; DM-2; bladder cancer; HLD; CAD (s/p PCI) - Differential diagnoses include, but are not limited to: pulmonary edema; ACS; electrolyte abnormality; pneumonia; viral syndrome - Order placed for continuous cardiac monitoring. At this time, monitor showed rate of 105 bpm with normal sinus rhythm, per my interpretation. - External medical records reviewed. Discharge summary dated 09/01/2024 was reviewed. Patient was admitted on 08/28/2024 for acute GI bleed and blood loss anemia. He received 2 units of packed red blood cells during his admission. - EKG image interpreted by myself showed normal sinus rhythm. Rate 67 bpm. QT 528. No acute acute ischemic changes. Noted to have a right bundle branch block and PVCs. Significant artifact at baseline secondary to patient's respiratory pattern. - Laboratory workup interpreted by myself showed leukocytosis (WBC 26.68) with neutrophil predominance; normal PT/INR; stable electrolytes other than hypocalcemia (Ca 8.3); ESRD (Cr 9.47); elevated lactate (2.6); elevated troponin (125); elevated BNP (3456); elevated procalcitonin (1.73) - VBG shows acidosis (pH 7.29) - Blood cultures obtained - CXR image reviewed by myself showed pulmonary edema, per my interpretation. - Patient given IV vancomycin and zosyn for sepsis coverage. No fluids were administered given patient's ESRD status and fluid overload status with his pulmonary edema and increasing oxygen requirement. - Discussed case with switch inspector, Dr. Vargas, at 12:03. She plans to come evaluate the patient and place orders for the patient to receive dialysis. However, she is in agreement that the patient would likely need some pressor support during dialysis and will need the ICU. - Discussed case with cable assembler correctional supervising cook, Dr. Aguilera, at 12:10. He plans to come evaluate the patient. - Discussion was had with field case manager about patient's case and need for admission - Hospitalist consulted for admission - Patient admitted to [facility] service for further evaluation and management. I have personally spent 43 minutes of critical care time in the direct management of this patient. This includes bedside care, interpretation of diagnostic studies, and testing, discussion with consultants, patient, and family members, and other required patient management activities. This 43 minutes is in excess of all separately billable procedures. ASSESSMENT AND PLAN: Diagnosis: sepsis; pulmonary edema; acute hypoxic respiratory failure; leukocytosis Plan: admit Past Med/Surg History Problem List (Updated 09/02/24 @ 15:58 by Brittney Patino PA-C) Leukocytosis (Acute) Acute hypoxemic respiratory failure (Acute) Pulmonary edema (Acute) Sepsis (Acute) Sore throat and laryngitis History of recent surgery Voice hoarsenesses Hypotension (arterial) Hypocalcemia (Acute) Melena (Acute) Acute GI bleeding (Acute) Emphysema lung Pacemaker Atrial fibrillation with rapid ventricular response Severe sepsis Pneumonia (Acute) Second degree AV block 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 History of transcatheter aortic valve replacement (TAVR) Rectal bleeding Symptomatic anemia ESRD on dialysis (Acute) GI bleed (Acute) Anemia (Acute) End-stage renal disease on hemodialysis Acidosis Hypoxia (Acute) Respiratory acidosis Metabolic encephalopathy Anticoagulated on Coumadin Multifocal pneumonia Acute respiratory failure with hypoxia and hypercapnia Diverticulitis of ascending colon UTI (urinary tract infection) Urinary tract infection due to Pseudomonas aeruginosa (Acute) CKD (chronic kidney disease) stage 5, GFR less than 15 ml/min (Acute) Colon polyps Encounter for pre-operative examination BPH (benign prostatic hyperplasia) Hypertension 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 " On 04/03/11 18:15 Norma Vargas wrote "with outflow obstruction " On 04/03/11 18:15 Norma Vargas wrote "with outflow obstruction " On 04/03/11 18:15 Norma Vargas wrote "with outflow obstruction " Absent renal function (04/03/11) Medical History Anemia Gastric nodule Type 2 diabetes mellitus NIDDM Bifascicular block ongoing since 2010 Umbilical hernia chronic per patient-denies change or worsening History of blood transfusion pre-op aortic valve replacement CAD (coronary artery disease) s/p 1 stent in 2019 HTN (hypertension) controlled, stable per pt History of diverticulitis entered into EMR 09/2022-patient states last flare was 1 year ago History of colon polyps BPH (benign prostatic hyperplasia) CKD (chronic kidney disease), stage V Arthritis Hx of bladder cancer surgery only Hyperlipidemia Surgical History History of cataract surgery left and right H/O cystoscopy History of tooth extraction Aortic valve replaced 2019 at pending sale to [facility] (followed by Dr. Wei) History of heart artery stent 1 stent placed 2018 History of orchiectomy, unilateral History of arthroscopy of left knee History of colonoscopy Family History Mother Family history of diabetes mellitus Father Family hx of colon cancer Other No family history of adverse response to anesthesia Social History Smoking Status: Never smoker Second Hand Exposure: No; Do You Dip or Chew Tobacco: No; Hx Alcohol Use: No Hx Substance Use: No Preferred Language: Senegalese Communication Ability: Effective Mold Maker Helper Required: No Beliefs That Will Affect Care: None Current Living Situation: Spouse Other Information That Helps Us Care for You: No Feels Safe at Home: Yes Safety Concerns: Feels Safe At This Time Assistive Devices: Cane, Glasses and Hearing Aid - Bilateral Allergies Allergies Allergy/AdvReac Type Severity Reaction Status Date / Time cephalexin Allergy Severe Tongue and Verified 08/21/24 20:53 face swelling tamsulosin Allergy Severe angioedema Verified 08/21/24 20:53 Home Meds Home Medications Medication Instructions Recorded Confirmed atorvastatin 80 mg tablet 80 mg PO HS 07/01/22 09/02/24 finasteride 5 mg tablet 5 mg PO DAILY 07/01/22 09/02/24 vitamins no.144-folic 2 tab PO DAILY 06/08/24 09/02/24 acid 400 mcg chewable tablet () lanthanum 750 mg chewable tablet 750 mg PO TIDWMEAL 08/21/24 09/02/24 (Fosrenol) triamcinolone acetonide 0.1 % 1 applic topical BID PRN Itching 08/21/24 09/02/24 topical cream Previous Rx's Medication Instructions Recorded midodrine 5 mg tablet 5 mg PO BID #60 tabs 08/25/24 amiodarone 200 mg tablet 200 mg PO DAILY #0 tabs 09/01/24 calcitriol 0.25 mcg capsule 1 mcg (4 x 0.25 mcg) PO BID 30 09/01/24 days #240 caps calcium acetate(phosphat bind) 667 1,334 mg (2 x 667 mg) PO TID #0 09/01/24 mg capsule caps calcium carbonate (Tums E-X) 600 mg (2 x 300 mg (750 mg)) PO 09/01/24 TID 30 days #180 tabs pantoprazole 40 mg tablet,delayed 40 mg PO BID #30 tabs 09/01/24 release Results & Data (ED) Vital Signs Vital Signs - 24 hr 09/02/24 10:49 09/02/24 11:00 09/02/24 11:00 Temperature 36.6 C Temperature Source Temporal Artery Scan Pulse Rate 107 H 63 Pulse Rate [Apical] Respiratory Rate 26 H 18 Respiratory Effort / Characteristics Labored Respiratory Depth Respiratory Pattern Blood Pressure 86/47 L Blood Pressure [Right Arm] Blood Pressure Mean 60 Blood Pressure Mean [Right Arm] Blood Pressure Position Sitting Pulse Oximetry 80 L 90 Oxygen Delivery Method Nasal Cannula Room Air Oxymask Oxygen Flow Rate 4 6 Fraction of Inspired Oxygen Sepsis Recent Fever Within 48 Hours No Sepsis New/Unexplained Change in Mental Status N/A Sepsis Action Taken by Nursing Physician Notified Oxygen Flow Rate - Titration Pulse Oximetry Post Tiitration 09/02/24 11:23 09/02/24 11:29 09/02/24 11:33 Temperature Temperature Source Pulse Rate Pulse Rate [Apical] 67 64 Respiratory Rate 33 H 34 H Respiratory Effort / Characteristics Labored Respiratory Depth Normal Respiratory Pattern Regular Blood Pressure Blood Pressure [Right Arm] 100/69 99/63 L Blood Pressure Mean Blood Pressure Mean [Right Arm] 79 75 Blood Pressure Position Pulse Oximetry 92 93 Oxygen Delivery Method Nebulizer Nebulizer Oxygen Flow Rate Fraction of Inspired Oxygen Sepsis Recent Fever Within 48 Hours Sepsis New/Unexplained Change in Mental Status Sepsis Action Taken by Nursing Oxygen Flow Rate - Titration Pulse Oximetry Post Tiitration 09/02/24 11:40 09/02/24 11:40 09/02/24 11:50 Temperature Temperature Source Pulse Rate Pulse Rate [Apical] 64 Respiratory Rate 30 H 30 H Respiratory Effort / Characteristics Respiratory Depth Respiratory Pattern Blood Pressure Blood Pressure [Right Arm] 103/43 L Blood Pressure Mean Blood Pressure Mean [Right Arm] 63 Blood Pressure Position Pulse Oximetry 80 L 92 91 Oxygen Delivery Method Oxymask Oxymask Oxymask Oxygen Flow Rate 0 8 8 Fraction of Inspired Oxygen Sepsis Recent Fever Within 48 Hours Sepsis New/Unexplained Change in Mental Status Sepsis Action Taken by Nursing Oxygen Flow Rate - Titration 8 Pulse Oximetry Post Tiitration 92 09/02/24 12:00 09/02/24 12:03 09/02/24 12:10 Temperature 37.9 C H Temperature Source Oral Pulse Rate 61 Pulse Rate [Apical] 65 Respiratory Rate 33 H Respiratory Effort / Characteristics Respiratory Depth Respiratory Pattern Blood Pressure Blood Pressure [Right Arm] 103/70 Blood Pressure Mean Blood Pressure Mean [Right Arm] 81 Blood Pressure Position Pulse Oximetry 92 Oxygen Delivery Method Oxymask Oxygen Flow Rate 10 Fraction of Inspired Oxygen Sepsis Recent Fever Within 48 Hours Sepsis New/Unexplained Change in Mental Status Sepsis Action Taken by Nursing Oxygen Flow Rate - Titration Pulse Oximetry Post Tiitration 09/02/24 12:20 09/02/24 12:40 Temperature Temperature Source Pulse Rate Pulse Rate [Apical] 62 64 Respiratory Rate 22 28 H Respiratory Effort / Characteristics Spontaneous Short of Breath Respiratory Depth Respiratory Pattern Blood Pressure Blood Pressure [Right Arm] 97/50 L Blood Pressure Mean Blood Pressure Mean [Right Arm] 65 Blood Pressure Position Pulse Oximetry 92 91 Oxygen Delivery Method Oxymask High Flow Nasal Cannula Oxygen Flow Rate 10 60 Fraction of Inspired Oxygen 35 Sepsis Recent Fever Within 48 Hours Sepsis New/Unexplained Change in Mental Status Sepsis Action Taken by Nursing Oxygen Flow Rate - Titration Pulse Oximetry Post Tiitration Laboratory Data 09/02/24 11:05 09/02/24 11:05 Lab Results 09/02/24 09/02/24 Range/Units 11:05 11:16 WBC 26.68 H (4.8-10.8) K/ul RBC 3.05 L (4.70-6.10) M/uL Hgb 9.6 L (14.0-18.0) g/dl POC Hgb 9.9 L (14.0-18.0) g/dl Hct 31.3 L (42.0-52.0) % POC Hct 29 L (42-52) % MCV 102.6 H (80.0-100.0) fL MCH 31.5 (25.0-34.0) pg MCHC 30.7 L (32.0-36.0) g/dL RDW Std Deviation 68.5 H (36.4-46.3) fL RDW Coeff of Grace 19.3 H (11.5-14.5) % Plt Count 233 (130-400) K/uL MPV 10.9 (9.4-12.4) fL Immature Gran % (Auto) 3.0 % Neut % (Auto) 83.3 % Lymph % (Auto) 3.3 % [place] % (Auto) 10.0 % Eos % (Auto) 0.1 % Baso % (Auto) 0.3 % Neut # (Auto) 22.21 H (1.40-6.50) K/uL Lymph # (Auto) 0.89 L (1.20-3.40) K/uL [place] # (Auto) 2.67 H (0.11-0.59) K/uL Eos # (Auto) 0.02 (0.00-0.50) K/uL Baso # (Auto) 0.09 (0.00-0.20) K/uL Immature Gran # (Auto) 0.80 H (0.01-0.20) K/uL Absolute Nucleated RBC 0.16 H (0.00-0.12) K/uL Nucleated RBC % (auto) 0.6 % Polychromasia 1+ Anisocytosis Present PT 12.0 (9.0-12.0) Seconds INR 1.1 (0.9-1.1) APTT 31 (21-31) Seconds PTT Ratio 1.2 VBG pH 7.29 L (7.36-7.41) VBG pCO2 49 (38-50) mmHg VBG pO2 29 mmHg VBG HCO3 24 mmol/L VBG O2 Saturation < 60.0 % VBG Base Excess -3.1 mEq/L POC Sodium 138 (135-144) mmol/L Sodium 138 (136-145) mmol/L POC Potassium 4.5 (3.3-5.0) mmol/L Potassium 4.6 (3.5-5.1) mmol/L POC Chloride 101 (101-112) mmol/L Chloride 101 (98-107) mmol/L Carbon Dioxide 27 (21-32) mmol/L POC Total CO2 23 L (24-31) mmol/L Anion Gap 10 (3-11) POC Anion Gap 20.0 (16-25) mmol/L POC BUN 40 H (7-18) mg/dl BUN 44 H (6-23) mg/dl Creatinine 9.47 H* D (0.6-1.4) mg/dl POC Creatinine 10.6 H* (0.6-1.3) mg/dl Est Cr Clr Drug Dosing 6.9 ml/min eGFR 5.16 BUN/Creatinine Ratio 4.6 L (10-20) Glucose 218 H (70-99(Fasting)) mg/dl POC Glucose (other) 212 H (70-99) mg/dl Lactate 2.6 H* (0.4-2.0) mmol/L Calcium 8.3 L (8.6-10.3) mg/dl POC Ioniz Calcium John 1.03 L (1.12-1.32) mmol/l Magnesium 2.0 (1.7-2.4) mg/dl Total Bilirubin 0.9 (0.2-1.0) mg/dl AST 16 (13-39) U/L ALT 12 (7-52) U/L Alkaline Phosphatase 115 H (34-104) U/L Troponin I High Sens 125.0 H* (0-20) pg/ml B-Natriuretic Peptide 3456 H (0-100) pg/ml Total Protein 6.7 (6.0-8.3) gm/dl Albumin 3.8 (3.4-5.0) gm/dl Globulin 2.9 (2.5-4.0) gm/dl Albumin/Globulin Ratio 1.3 (0.9-2) Procalcitonin 1.73 H (0-0.5) ng/ml Adenovirus (PCR) Not Detected (NotDetected) B. pertussis DNA (PCR) Not Detected (NotDetected) B.parapertussis DNA PCR Not Detected (NotDetected) C. pneumoniae DNA (PCR) Not Detected (NotDetected) Coronavirus OC43 (PCR) Not Detected (NotDetected) Coronavirus HKU1 (PCR) Not Detected (NotDetected) Coronavirus 229E (PCR) Not Detected (NotDetected) SARS-CoV-2 (PCR) Not Detected (NotDetected) Coronavirus NL63 (PCR) Not Detected (NotDetected) Human Metapneumovir PCR Not Detected (NotDetected) Influenza Type A (PCR) Not Detected (NotDetected) Influenza Type B (PCR) Not Detected (NotDetected) M. pneumoniae (PCR) Not Detected (NotDetected) Parainfluenza 1 (PCR) Not Detected (NotDetected) Parainfluenza 2 (PCR) Not Detected (NotDetected) Parainfluenza 3 (PCR) Not Detected (NotDetected) Parainfluenza 4 (PCR) Not Detected (NotDetected) RSV (PCR) Not Detected (NotDetected) Entero/Rhino (PCR) Not Detected (NotDetected) Administered Medications Calcium Acetate (Calcium Acetate 667 Mg Cap/Tab) 1,334 mg PO TID [facility] Stop: 10/02/24 14:21 Last Admin: 09/02/24 15:41 Dose: Not Given Documented By: AMS Levofloxacin/Dextrose (Levaquin/D5w) 750 mg in 150 mls @ 100 mls/hr IV ONE ONE; Protocol Stop: 09/02/24 16:29 Last Admin: 09/02/24 15:21 Dose: 100 mls/hr Documented By: AMS Phenylephrine HCl (Phenylephrine/Nss) 25 mg in 250 mls @ 112.974 mls/hr IV .Q2H13M [facility]; Protocol Stop: 10/02/24 15:29 Last Titration: 09/02/24 16:10 Dose: 1.9 mcg/kg/min, 113 mls/hr Documented By: AMS Co-signed By: CA Titration: 09/02/24 16:02 Dose: 1.7 mcg/kg/min, 101.1 mls/hr Documented By: AMS Co-signed By: CA Titration: 09/02/24 15:56 Dose: 1.5 mcg/kg/min, 89.2 mls/hr Documented By: AMS Co-signed By: NMK Titration: 09/02/24 15:51 Dose: 1.3 mcg/kg/min, 77.3 mls/hr Documented By: AMS Co-signed By: NMK Titration: 09/02/24 15:46 Dose: 1.1 mcg/kg/min, 65.4 mls/hr Documented By: AMS Co-signed By: NMK Titration: 09/02/24 15:41 Dose: 0.9 mcg/kg/min, 53.5 mls/hr Documented By: AMS Co-signed By: NMK Titration: 09/02/24 15:35 Dose: 0.7 mcg/kg/min, 41.6 mls/hr Documented By: AMS Co-signed By: NMK Admin: 09/02/24 15:27 Dose: 0.5 mcg/kg/min, 29.7 mls/hr Documented By: AMS Co-signed By: JOEY Miscellaneous (Order Awaiting Action) 1 each N/A QS [facility] Stop: 10/02/24 15:59 Last Admin: 09/02/24 15:41 Dose: Not Given Documented By: GIANNI Discontinued Medications Albuterol (Albut/Ipratrop 3mg/0.5mg Neb 3 Ml Vial) 3 ml NEB NOW STA; Protocol Stop: 09/02/24 11:13 Last Admin: 09/02/24 11:15 Dose: 3 ml Documented By: NAZANIN Vancomycin HCl 2,000 mg/ (Sodium Chloride) 540 mls @ 200 mls/hr IV NOW ONE Stop: 09/02/24 14:30 Last Admin: 09/02/24 13:08 Dose: 200 mls/hr Documented By: ZENON Piperacillin Sod/Tazobactam Sod (Zosyn) 4.5 gm in 100 mls @ 200 mls/hr IV NOW ONE; Protocol Stop: 09/02/24 12:18 Last Infusion: 09/02/24 15:06 Dose: Infused Documented By: Admin: 09/02/24 13:03 Dose: 200 mls/hr Documented By: ZENON Imaging Data Radiologist's Impression: Chest X-Ray 09/02/24 11:00 XR chest 1V not portable CLINICAL HISTORY: Sepsis COMPARISON STUDY: 08/21/2024 FINDINGS: There is stable cardiomegaly with increased pulmonary vascular congestion. There are interval diffuse interstitial and patchy pulmonary opacities most prominent in the lower lungs. Stable elevation of the right hemidiaphragm. No definite pleural effusion. No pneumothorax seen. IMPRESSION: 1. CHF. 2. Interval pulmonary opacities could represent pneumonia or pulmonary edema. ACT 112: Negative or not required by law. Electronically signed by: Aubrey Betancourt M.D. 09/02/2024 11:39 AM Discharge Plan Visit Data Chief Complaint: Shortness of Breath/Dyspnea Stated Complaint: SOB ED Provider: Beryl Espitia Discharge Problem: Sepsis, Pulmonary edema, Acute hypoxemic respiratory failure, Leukocytosis Patient Disposition: Admitted As Inpatient Discharge Instructions Interventions: ED Discharge Assessment Last Done: 09/02/24 13:23 Discharge Problem: Sepsis Qualifiers: Sepsis type: sepsis due to unspecified organism Sepsis acute organ dysfunction status: without acute organ dysfunction Qualified Code(s): A41.9 - Sepsis, unspecified organism
[2024-09-02] MEDS: ALBUT/IPRATROP 3MG/0.5MG NEB 3 ML VIAL NEB STA (11:15)
[2024-09-02 11:27] LABS: Base Excess VBG -3.1 mEq/L; HCO3 VBG 24 mmol/L; Oxygen Saturation VBG < 60.0 %; PCO2 VBG 49 mmHg (38-50); PO2 VBG 29 mmHg; pH VBG 7.29 (7.36-7.41)
[2024-09-02 11:30] LABS: iSTAT Creatinine 10.6 mg/dl (0.6-1.3); iSTAT Hemoglobin 9.9 g/dl (14.0-18.0); iSTAT Ionized Calcium 1.03 mmol/l (1.12-1.32); iSTAT Potassium 4.5 mmol/L (3.3-5.0)
[2024-09-02 11:34] LABS: Hematocrit (blood only) 31.3 % (42.0-52.0); Hemoglobin 9.6 g/dl (14.0-18.0); Mean Corpuscular Hemoglobin 31.5 pg (25.0-34.0); Mean Corpuscular Hgb Conc 30.7 g/dL (32.0-36.0); Mean Corpuscular Volume 102.6 fL (80.0-100.0); Mean Platelet Volume 10.9 fL (9.4-12.4); Nucleated RBC # (auto) 0.16 K/uL (0.00-0.12); Nucleated RBC % (auto) 0.6 %; Platelet Count 233 K/uL (130-400); RDW Coefficient of Variation 19.3 % (11.5-14.5); RDW Standard Deviation 68.5 fL (36.4-46.3); Red Blood Count 3.05 M/uL (4.70-6.10); White Blood Count 26.68 K/ul (4.8-10.8)
--- NOTE | 2024-09-02 11:41 | XRay Report ---
XR chest 1V not portable CLINICAL HISTORY: Sepsis COMPARISON STUDY: 08/21/2024 FINDINGS: There is stable cardiomegaly with increased pulmonary vascular congestion. There are interv al diffuse interstitial and patchy pulmonary opacities most prominent in the lower lungs. Stable elev ation of the right hemidiaphragm. No definite pleural effusion. No pneumothorax seen. IMPRESSION: 1. CHF. 2. Interval pulmonary opacities could represent pneumonia or pulmonary edema. ACT 112: Negative or not required by law. Electronically signed by: Aubrey Betancourt M.D. 09/02/2024 11:39 AM
[2024-09-02] MEDS ORDERED: VANCOMYCIN CONSULT ACTIVE PRN (11:49)
[2024-09-02 11:54] LABS: Albumin Globulin Ratio 1.3 (0.9-2); Albumin Level 3.8 gm/dl (3.4-5.0); BUN Creatinine Ratio 4.6 (10-20); Bilirubin,Total 0.9 mg/dl (0.2-1.0); Calcium 8.3 mg/dl (8.6-10.3); Creatinine Clr Calc Pharmacy 6.9 ml/min; Globulin 2.9 gm/dl (2.5-4.0); Potassium 4.6 mmol/L (3.5-5.1); Total Protein 6.7 gm/dl (6.0-8.3)
[2024-09-02 11:57] LABS: INR 1.1 (0.9-1.1); Partial Thromboplastin Ratio 1.2; Partial Thromboplastin Time 31 Seconds (21-31)
[2024-09-02 12:03] LABS: Anisocytosis Present; Basophils # (auto) 0.09 K/uL (0.00-0.20); Basophils % (auto) 0.3 %; Eosinophils # (auto) 0.02 K/uL (0.00-0.50); Eosinophils % (auto) 0.1 %; Lymphocytes # (auto) 0.89 K/uL (1.20-3.40); Lymphocytes % (auto) 3.3 %; Monocytes # (auto) 2.67 K/uL (0.11-0.59); Neutrophils # (auto) 22.21 K/uL (1.40-6.50); Neutrophils % (auto) 83.3 %; Polychromasia 1+
[2024-09-02 12:25] LABS: Adenovirus PCR Not Detected (NotDetected); Bordetella parapertussis PCR Not Detected (NotDetected); Bordetella pertussis PCR Not Detected (NotDetected); Chlamydia pneumoniae PCR Not Detected (NotDetected); Coronavirus 229E PCR Not Detected (NotDetected); Coronavirus CoV-2 (COVID19)PCR Not Detected (NotDetected); Coronavirus HKU1 PCR Not Detected (NotDetected); Coronavirus NL63 PCR Not Detected (NotDetected); Coronavirus OC43PCR Not Detected (NotDetected); Human Metapneumovirus PCR Not Detected (NotDetected); Influenza A PCR Not Detected (NotDetected); Influenza B PCR Not Detected (NotDetected); Mycoplasma pneumoniae PCR Not Detected (NotDetected); Parainfluenza Virus 1 PCR Not Detected (NotDetected); Parainfluenza Virus 2 PCR Not Detected (NotDetected); Parainfluenza Virus 3 PCR Not Detected (NotDetected); Parainfluenza Virus 4 PCR Not Detected (NotDetected); Respiratory Syncytial VirusPCR Not Detected (NotDetected); Rhinovirus/Enterovirus PCR Not Detected (NotDetected)
--- NOTE | 2024-09-02 12:43 | Critical Care Consultation ---
Date of Consultation September 02, 2024 Assessment & Plan (1) Acute hypoxemic respiratory failure: Reason Critically Ill: 78-year-old male with end-stage renal disease with hypoxic respiratory failure clinically consistent with volume overload needing volume control and history of hypotension PLAN: Neuro: [] - [] Resp: Acute hypoxic respiratory failure - Received 4 effective days of Zosyn and doxycycline 08/22 until 08/25: For hypoxia and radiology infiltrates and one dose of meropenem on 08/21 - Received 2 effective days of Zosyn 08/28 until 08/30: Hypoxia was felt secondary to acute GI bleeding radiography demonstrated resolving pneumonia - Sputum 08/22 demonstrated only light normal graeme - Reviewed prior records patient had bronchoscopy done on 12/20/2023 which resulted in growth of rare Megan albicans and a saprophytic fungus and pulmonary consultation notes from December - Obtain sputum specimen if possible - Given that patient has presumptive structural lung disease and tracheobronchial malacia likely inhibiting patient's ability to clear his secretions I will empirically treat the patient for pneumonia with 14 days of Levaquin, this would also provide pseudomonal coverage; however, at this point the patient has only grown Pseudomonas out of his urine and has had a recent sputum specimen - I do not feel that repeat bronchoscopy is indicated at this time, previously patient required intubation to obtain adequate specimen - Add 1 3 beta D glucan - Understand possible drug interactions with patient being on amiodarone and having pacemaker difficult to evaluate QTc will keep magnesium level elevated CV: History atrial fibrillation with rapid ventricular response: - Continue amiodarone for rhythm control - Risks of systemic anticoagulation outweigh benefits - Patient has had 2 subsequent episodes of symptomatic GI bleeding and is in normal sinus rhythm - Ongoing anticoagulation presents higher risk versus stroke risk at this time, should follow-up with cardiology as an outpatient prior to reinitiating anticoagulation for paroxysmal atrial fibrillation History of transcatheter aortic valve replacement (TAVR): - Echocardiogram from 08/29 reviewed - Prior discussions regarding possible prosthetic stenosis versus hyperdynamic left ventricle - Cardiology consultation for additional advice: is there a functional symptomatic aortic stenosis predisposing the patient to hypotension from a fixed cardiac outflow track and no ability to physiologically compensate during hemodialysis History hypertension: May need to revisit once calcium levels stabilize Hypotension: Blood pressures higher compared to prior admissions. Reviewing previous records there was concern that blood pressures may be artifactual from pre-existing peripheral vascular disease as cuff pressures were significantly different from invasive arterial line. - Continue midodrine 5 mg bid Fluids/Renal: Metabolic acidosis consistent with end-stage renal disease - Nephrology consulted with plans to undergo dialysis in ICU where vasoactive support can be administered Recent significant hypocalcemia - Recent parathyroidectomy secondary to hyperparathyroidism secondary to end-stage renal disease - Had been seen by OMFS 08/30 for ongoing sore throat, supportive care ID: SIRS versus sepsis - Has an elevated white blood cell count and mildly increased temp - Blood cultures from prior admission demonstrated no growth, prior expectorated sputum demonstrated no growth, urine culture from 08/28 demonstrated no growth - Blood cultures ordered today in addition to sputum culture as well as repeat urine culture also adding 1 3 beta D glucan, and fungal culture - No clinical evidence to support intra-abdominal sepsis/biliary origin - Empiric treatment with IV Levaquin, and vancomycin - Infectious disease consultation GI/Nutrition: GAVE syndrome -Requesting additional information from GI regarding recommendations of acid suppression including dose and intensity - In meantime we will continue IV twice daily suppression: May have implications regarding possible pulmonary pathogens Heme: Anemia DVT prophylaxis: Heparin subcu Endocrine: ICU hyperglycemia protocol Vascular access: Will place arterial line for hypotension and invasive monitoring during hemodialysis Code Status: Full Disposition: ICU (2) Pulmonary edema: (3) History of recent surgery: (4) Sore throat and laryngitis: (5) Pacemaker: (6) Emphysema lung: (7) Atrial fibrillation with rapid ventricular response: (8) 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: (9) Second degree AV block: (10) End-stage renal disease on hemodialysis: Supervising Physician Co-Signing Physician Notes I have personally spent 70 minutes of critical care time in the direct management of this patient. This is a life/limb threatening event. This includes time spent evaluating patient, direct bedside care, chart review, placing orders, interpretation of diagnostic studies, discussion with consultants, patient, and/or family members regarding treatment decisions, as well as other required patient management activities. This time is exclusive of all separately billable procedures, and teaching time and separate from and in addition to any other critical care service time. History of Present Illness Reason for Consultation: Acute hypoxic respiratory failure, concern for sepsis, possible volume overload inability to tolerate dialysis History of Present Illness Patient is a 78-year-old male with several recent hospitalizations. Patient was admitted August 21 for concerns of severe sepsis and hypoxic respiratory failure after he recently underwent a parathyroidectomy. Discharge summary indicates the patient was treated with 5 days of antibiotics, he failed two-step testing was prescribed oxygen for at home therapy. He has been recommended to undergo a sleep study and was discharged on August 25. He had been seen by cardiology for an episode of paroxysmal atrial fibrillation and had been started on amiodarone for rate/rhythm control and also initiated Eliquis for systemic anticoagulation. Of note patient previously been on systemic anticoagulation for increase aortic valve velocities in hopes they may improve. Patient returned on August 28With acute GI bleeding. Please refer to May 2024 hospital admission which the patient underwent EGD for similar presentation. At that time patient underwent blood transfusion did not undergo any invasive evaluation for source of bleeding as it was felt secondary to previously diagnosed GAVE syndrome, please see GI notes August 31, 2024 for additional details regarding their treatment recommendations. Patient still having oxygen requirement at that time, additional imaging demonstrating re solving possible pneumonia as well as tracheobronchial malacia. Hospital admission was also significant for profound hypocalcemia and required aggressive calcium repletion. Prior records indicate patient has had at least 2 episodes of symptomatic GI bleeding while under systemic anticoagulation. Anticoagulation was stopped secondary to bleeding risk being higher than thromboembolic risk as the patient had maintained normal sinus rhythm. During this admission I briefly discussed goals of care and the patient nor were receptive to those discussions at that time. Today the patient presents for increasing shortness of breath and confusion on his way to dialysis. He has an increased oxygen requirement. Patient reports his dry weight is 86.5 with shoes, and review of medical records dating back to 2019 he has not really been close to that weight at any point. We discussed medical interventions, he has been on noninvasive positive pressure ventilation previously and extremely did not like it he has also been on high flow nasal cannula and also did not like it. We discussed the natural course of tracheobronchomalacia and difficulties in stenting airways open and being able to clear secretions. He has not had a bowel movement since discharge. Allergies Allergy/AdvReac Type Severity Reaction Status Date / Time cephalexin Allergy Severe Tongue and Verified 08/21/24 20:53 face swelling tamsulosin Allergy Severe angioedema Verified 08/21/24 20:53 Home Medications Medication Instructions Recorded Confirmed Type atorvastatin 80 mg tablet 80 mg PO HS 07/01/22 09/02/24 History finasteride 5 mg tablet 5 mg PO DAILY 07/01/22 09/02/24 History vitamins no.144-folic 2 tab PO DAILY 06/08/24 09/02/24 History acid 400 mcg chewable tablet () lanthanum 750 mg chewable tablet 750 mg PO TIDWMEAL 08/21/24 09/02/24 History (Fosrenol) triamcinolone acetonide 0.1 % 1 applic topical BID PRN Itching 08/21/24 09/02/24 History topical cream midodrine 5 mg tablet 5 mg PO BID #60 tabs 08/25/24 09/02/24 Rx amiodarone 200 mg tablet 200 mg PO DAILY #0 tabs 09/01/24 09/02/24 Rx calcitriol 0.25 mcg capsule 1 mcg (4 x 0.25 mcg) PO BID 30 09/01/24 09/02/24 Rx days #240 caps calcium acetate(phosphat bind) 667 1,334 mg (2 x 667 mg) PO TID #0 09/01/24 09/02/24 Rx mg capsule caps calcium carbonate (Tums E-X) 600 mg (2 x 300 mg (750 mg)) PO 09/01/24 09/02/24 Rx TID 30 days #180 tabs pantoprazole 40 mg tablet,delayed 40 mg PO BID #30 tabs 09/01/24 09/02/24 Rx release Patient History Medical History Anemia Gastric nodule Type 2 diabetes mellitus NIDDM Bifascicular block ongoing since 2010 Umbilical hernia chronic per patient-denies change or worsening History of blood transfusion pre-op aortic valve replacement CAD (coronary artery disease) s/p 1 stent in 2019 HTN (hypertension) controlled, stable per pt History of diverticulitis entered into EMR 09/2022-patient states last flare was 1 year ago History of colon polyps BPH (benign prostatic hyperplasia) CKD (chronic kidney disease), stage V Arthritis Hx of bladder cancer surgery only Hyperlipidemia Surgical History History of cataract surgery left and right H/O cystoscopy History of tooth extraction Aortic valve replaced 2019 at [facility] (followed by Dr. Wei) History of heart artery stent 1 stent placed 2018 History of orchiectomy, unilateral History of arthroscopy of left knee History of colonoscopy Family History Mother Family history of diabetes mellitus Father Family hx of colon cancer Other No family history of adverse response to anesthesia Social History Smoking Status: Former smoker Second Hand Exposure: No; Do You Dip or Chew Tobacco: No; Hx Alcohol Use: No Hx Substance Use: No Preferred Language: [place]ian Communication Ability: Effective Security Assistant Required: No Beliefs That Will Affect Care: None Current Living Situation: Spouse Feels Safe at Home: Yes Assistive Devices: Cane Physical Exam Physical Exam: General: Alert. Appears tired. Skin: Warm, dry, Head: Atraumatic Ears, nose, mouth and throat: airway patent Cardiovascular: Normal peripheral perfusion: AV paced rhythm Respiratory: Mild tachypnea, mild to minimal belly breathing, no respiratory distress Gastrointestinal: Non distended Musculoskeletal: No deformity Results & Data Results & Data Vital Signs (Past 12 Hours) Vital Signs Temp Pulse Pulse Resp BP BP Pulse Ox 09/02/24 12:20 62 22 97/50 L 92 09/02/24 12:10 65 33 H 103/70 92 09/02/24 12:03 61 09/02/24 12:00 37.9 C H 09/02/24 11:50 64 30 H 103/43 L 91 09/02/24 11:40 30 H 92 09/02/24 11:40 80 L 09/02/24 11:33 64 34 H 99/63 L 93 09/02/24 11:23 67 33 H 100/69 92 09/02/24 11:00 63 18 90 09/02/24 11:00 09/02/24 10:49 36.6 C 107 H 26 H 86/47 L 80 L O2 Del Method O2 Flow Rate 09/02/24 12:20 Oxymask 10 09/02/24 12:10 Oxymask 10 09/02/24 12:03 09/02/24 12:00 09/02/24 11:50 Oxymask 8 09/02/24 11:40 Oxymask 8 09/02/24 11:40 Oxymask 0 09/02/24 11:33 Nebulizer 09/02/24 11:23 Nebulizer 09/02/24 11:00 Oxymask 6 09/02/24 11:00 Room Air 09/02/24 10:49 Nasal Cannula 4 Critical Care Results & Data Vital Signs (Past 12 Hours) Vital Signs Temp Pulse Pulse Resp BP BP Pulse Ox 09/02/24 12:20 62 22 97/50 L 92 09/02/24 12:10 65 33 H 103/70 92 09/02/24 12:03 61 09/02/24 12:00 37.9 C H 09/02/24 11:50 64 30 H 103/43 L 91 09/02/24 11:40 30 H 92 09/02/24 11:40 80 L 09/02/24 11:33 64 34 H 99/63 L 93 09/02/24 11:23 67 33 H 100/69 92 09/02/24 11:00 63 18 90 09/02/24 11:00 09/02/24 10:49 36.6 C 107 H 26 H 86/47 L 80 L O2 Del Method O2 Flow Rate 09/02/24 12:20 Oxymask 10 09/02/24 12:10 Oxymask 10 09/02/24 12:03 09/02/24 12:00 09/02/24 11:50 Oxymask 8 09/02/24 11:40 Oxymask 8 09/02/24 11:40 Oxymask 0 09/02/24 11:33 Nebulizer 09/02/24 11:23 Nebulizer 09/02/24 11:00 Oxymask 6 09/02/24 11:00 Room Air 09/02/24 10:49 Nasal Cannula 4 Lab & Micro Results (Past 24 Hours) RBC 3.05 M/uL (4.70-6.10) L 09/02/24 WBC 26.68 K/ul (4.8-10.8) H 09/02/24 Hgb 9.6 g/dl (14.0-18.0) L 09/02/24 Hct 31.3 % (42.0-52.0) L 09/02/24 MCV 102.6 fL (80.0-100.0) H 09/02/24 MCH 31.5 pg (25.0-34.0) 09/02/24 MCHC 30.7 g/dL (32.0-36.0) L 09/02/24 RDW Standard Deviation 68.5 fL (36.4-46.3) H 09/02/24 RDW Coefficient of Variation 19.3 % (11.5-14.5) H 09/02/24 Plt Count 233 K/uL (130-400) 09/02/24 MPV 10.9 fL (9.4-12.4) 09/02/24 Nucleated Red Blood Cells % (auto) 0.6 % 09/02 Nucleated RBC Absolute Count (auto) 0.16 K/uL (0.00-0.12) H 09/02/24 Neutrophils (%) (Auto) 83.3 % 09/02/24 Lymphocytes (%) (Auto) 3.3 % 09/02/24 Monocytes # (Auto) 2.67 K/uL (0.11-0.59) H 09/02/24 Eosinophils # (Auto) 0.02 K/uL (0.00-0.50) 09/02/24 Immature Granulocyte % (Auto) 3.0 % 09/02/24 Neutrophils # (Auto) 22.21 K/uL (1.40-6.50) H 09/02/24 Lymphocytes # (Auto) 0.89 K/uL (1.20-3.40) L 09/02/24 Monocytes # (Auto) 2.67 K/uL (0.11-0.59) H 09/02/24 Eosinophils # (Auto) 0.02 K/uL (0.00-0.50) 09/02/24 Basophils # (Auto) 0.09 K/uL (0.00-0.20) 09/02/24 Immature Granulocyte # (Auto) 0.80 K/uL (0.01-0.20) H 09/02 Polychromasia 1+ 09/02/24 Anisocytosis Present 09/02/24 Na 138 mmol/L (136-145) 09/02/24 K 4.6 mmol/L (3.5-5.1) 09/02/24 Cl 101 mmol/L (98-107) 09/02/24 CO2 27 mmol/L (21-32) 09/02/24 Anion Gap 10 (3-11) 09/02/24 BUN 44 mg/dl (6-23) H 09/02/24 Creatinine 9.47 mg/dl (0.6-1.4) H* 09/02/24 BUN/Creatinine Ratio 4.6 (10-20) L 09/02/24 Glu 218 mg/dl (70-99(Fasting)) H 09/02/24 Ca 8.3 mg/dl (8.6-10.3) L 09/02/24 Total Bilirubin 0.9 mg/dl (0.2-1.0) 09/02/24 AST 16 U/L (13-39) 09/02/24 ALT 12 U/L (7-52) 09/02/24 Alkaline Phosphatase 115 U/L (34-104) H 09/02/24 TP 6.7 gm/dl (6.0-8.3) 09/02/24 Albumin 3.8 gm/dl (3.4-5.0) 09/02/24 Globulin 2.9 gm/dl (2.5-4.0) 09/02/24 Albumin/Globulin Ratio 1.3 (0.9-2) 09/02/24 Mg 2.0 mg/dl (1.7-2.4) 09/02/24 11:05 Calcium Level 8.3 mg/dl (8.6-10.3) L 09/02/24 11:05 Prothromb Time International Ratio 1.1 (0.9-1.1) 09/02/24 11:0 5 Venous Blood pH 7.29 (7.36-7.41) L 09/02/24 11:05 Venous Blood Partial Pressure CO2 49 mmHg (38-50) 09/02/24 11:0 5 Venous Blood Partial Pressure O2 29 mmHg 09/02/24 11:05 Venous Blood HCO3 24 mmol/L 09/02/24 11:05 Venous Blood Base Excess -3.1 mEq/L 09/02/24 11:05 Venous Blood Oxygen Saturation < 60.0 % 09/02/24 11:05 Diagnostic Findings (Past 24 Hours) Chest X-Ray 09/02/24 11:00 XR chest 1V not portable CLINICAL HISTORY: Sepsis COMPARISON STUDY: 08/21/2024 FINDINGS: There is stable cardiomegaly with increased pulmonary vascular congestion. There are interval diffuse interstitial and patchy pulmonary opacities most prominent in the lower lungs. Stable elevation of the right hemidiaphragm. No definite pleural effusion. No pneumothorax seen. IMPRESSION: 1. CHF. 2. Interval pulmonary opacities could represent pneumonia or pulmonary edema. ACT 112: Negative or not required by law. Electronically signed by: Aubrey Betancourt M.D. 09/02/2024 11:39 AM RT Ventilator Mngmt (Last Documented) Ventilator Ordered Settings Respiratory Rate 22 09/02/24 12:20 Ventilator - PT Measurements Respiratory Rate 22 Coding Level of Care Code 63465 CRITICAL CARE 1ST 30-74M Diagnoses Acute hypoxemic respiratory failure J96.01 Pulmonary edema J81.1 History of recent surgery Z98.890 Sore throat and laryngitis J06.0 Pacemaker Z95.0 Pulmonary emphysema, unspecified emphysema type J43.9 Emphysema type: unspecified Atrial fibrillation with rapid ventricular response I48.91 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 N25.81; N18.6; Z99.2 Second degree AV block I44.1 End-stage renal disease on hemodialysis N18.6; Z99.2 (6) Emphysema lung Emphysema type: unspecified Qualified Code(s): J43.9 - Emphysema, unspecified
[2024-09-02] MEDS: PIPERACILLIN/TAZOBACTAM 4.5 GM/100 ML BAG IV ONE (13:03)
[2024-09-02] MEDS: VANCOMYCIN HCL 2,000 MG in SODIUM CHLORIDE 0.9% 500 ML IV ONE (13:08)
[2024-09-02] MEDS ORDERED: SODIUM CHLORIDE 0.9% 1,000 ML IV PRN (13:22)
--- NOTE | 2024-09-02 13:45 | Communication Note ---
Date of Service: September 02, 2024 78-year-old male with PMH of CAD status post stent, aortic stenosis status post bioprosthetic valve, Mobitz type II status post pacemaker, A-fib currently not on anticoagulation due to GI bleed, HLD, ESRD on HD, bladder cancer status post surgery, T2DM, past tobacco use, possible underlying COPD, hyperparathyroidism status postsurgery on 08/19/2024 presents to the ED with complaint of worsening shortness of breath since last evening associated with worsening mentation per patient's . At bedside exam, patient reports some cough with occasional mucu s. Patient reports he makes some urine and denies any pain or burning while passing urine. Patient denies any nausea/vomiting/change in his appetite. Denies any diarrhea. Labs and imagings reviewed. WBC elevated at 26.6 8K, BUN/creatinine are chronically elevated in this hemodialysis patient, lactate elevated at 2.6 and procalcitonin elevated at 1.73. Troponin flat trend in 120s, patient denies any chest pain. Respiratory pathogen panel negative. MRSA screen pending. EKG with ventricular paced rhythm and elevated QTc. Magnesium 2.0 and potassium of 4.6. CXR with concern of interval pulmonary opacities suggestive of pneumonia and also has component of pulmonary edema. Active problems: Acute hypoxemic respiratory failure likely secondary to pneumonia/severe sepsis POA secondary to pneumonia/Metabolic encephalopathy: On Vanco and levaquin per ICU Mx. Add probiotic. MRSA scrn pending. Lactate normalized. Hypotension: Complicated by infection, does have severe stenosis of his p rosthetic TAVR. Being managed in ICU for possible pressor need. ESRD on hemodialysis: Nephrology on consult. On exam: GENERAL: Alert and oriented x3. NAD, appears weak/tired/frail/ill. On 35 L/min H FNC w/ FiO2 of 60%. HEENT: No pallor, no icterus. Pupils equal, round and reactive to light. Oral mucosa dry. NECK: No JVD, no neck masses. HEART: S1 and S2 heard. regular rate and rhythm. No murmur, no gallop. RESPIRATORY SYSTEM: Normal AP diameter. No accessory muscle use. No wheezing, bl crackles. ABDOMEN: Soft, bowel sounds present, nontender, no distention. CENTRAL NERVOUS SYSTEM: No facial droop. Speech is clear. Obeys simple commands. Moves extremities. EXTREMITIES: trace/1+ ble edema, no erythema seen. I have seen and examined the patient and have discussed the case with the provider above. I agree with the assessment and plan as stated. Time spent: 40 min
--- NOTE | 2024-09-02 13:48 | History & Physical Report ---
Date of Service September 02, 2024 Assessment & Plan (1) Acute hypoxemic respiratory failure: Plan: Acute hypoxic respiratory failure 2/2 pulmonary edema, possibly multifactorial with underlying chronic diastolic HF and undiagnosed COPD * Admit to ICU due to excessive non-invasive respiratory support required at this time * Now on high-flow supplemental oxygen as high as 65 L/min with tachypnea and O2 sats in low 90's * Duonebs x 2 with minimal clinical improvement- Continue duonebs as needed * Pulmonary toileting with incentive spirometry and flutter valve use (2) Severe sepsis: Plan: Severe sepsis with Temp 37.9, respirations in the 30's, WBC 26, Lactate 2.6, Procalcitonin 1.7 with cognitive changes. Vanco and Zosyn initiated in the emergency department. * Dual antibiotic agents with Zosyn and Vanco * Trend CBC, BMP- AM Labs ordered * Fluid resuscitation challenging with end-stage CKD, although the patient appears clinically dry * Blood culture pending; Urine specimen ordered and awaiting collection (3) CKD (chronic kidney disease), stage V: Plan: History of CKD Stage V, Hemodialysis --. Last treatment 08/31/24 * Nephrology consult ordered * Dialysis access Left fistula * Continue renal home management * Trend BMP, Mag, Phos- ordered for AM (4) CAD (coronary artery disease): Plan: History of Chronic Diastolic congestive HF, Atrial fibrillation RVR with leadless pacemaker placed 06/28/24 for Mobitz II heart block, CAD with drug-eluting stent to left circumflex (2019), Aortic valve stenosis s/p TAVR (2019), HLD, HTN. * Hypotensive 80's/60's in the setting of sepsis * Midodrine BID dosing-ordered * Will most likely require pressor support in ICU * Continuous ECG monitoring-Trop elevated 125, BNP 3456 * EKG as needed for chest pain * Continue Amiodarone, Atorvastatin as per home regimen * Patient not currently on anticoagulation for history of GI bleed and anemia * Consider Cardiology consult Plan DVT Ppx: SCD's due to recent GI bleeding and anemia Code status: Full PCP: Dr. Maki Dispo: Admit ICU Patient seen in collaboration with Dr. Loving. Please see addendum.I spent a total of 75 minutes coordinating, documenting and providing care for this patient excluding time spent in the performance of separately billed services or time spent by another provider/QHP. History of Present Illness Primary Care Provider: Mike Maki MD 78 year old male with a past medical history of CKD Stg V on dialysis, Chronic Diastolic congestive HF, Atrial fibrillation RVR with leadless pacemaker placed 06/28/24 for Mobitz II heart block, CAD with drug-eluting stent to left circumflex (2019), Aortic valve stenosis s/p TAVR (2019), HLD, HTN, DM Type II noninsulin dependent, Anemia, hyperparthyroidism s/p 08/19/24, bladder cancer diagnosed 2022, s/p surgery and follows Urology. He presented to the hospital today with shortness of breath, started overnight and progressively worsened, requiring 4LPM oxygen with declining cognitive status while en route to dialysis this morning. Upon arrival to the ED, he was hypoxic with sats in the 80's on room air, requiring 10LPM oxygen via oxymask and switched to high-flow oxygen with minimal improvement in breathing pattern. Hypotensive 80-90's/60's. Severe sepsis with Temp 37.9, respirations in the 30's, WBC 26, Lactate 2.6, Procalcitonin 1.7, with cognitive changes. Vanco and Zosyn initiated in the emergency department. Chest XRay today revealed increased pulmonary vascular congestion with diffuse interstitial and patchy pulmonary opacities most prominent to the lower lungs. Stable elevation of the right hemidiaphragm. No definite pleural effusion. No pneumothorax seen. He denies fevers at home, cognitive concerns, chest pain, N/V/D. Multiple hospitalizations since May 2024: * 08/28/24-09/01/24 Hypotensive with hemoglobin 8.2. Found to have GI bleed while on Eliquis for Afib. * 08/21/24- 08/25/24 Admitted for Sepsis pneumonia, treated with.... Also found to be in atrial fibrillation with RVR after dialysis on 08/22 and consequently started on amiodarone and Eliquis. * 06/08/24-06/16/24 Admitted for excessive weakness following HD treatment with a postive hemoccult, Hgb 5.9 on admission. Was on Coumadin and ASA at that time. He received PRBC x3 and Vitamin K. Resumed ASA at discharge. History obtained from the patient, documentation from hospital record, and external chart review. Allergies Allergy/AdvReac Type Severity Reaction Status Date / Time cephalexin Allergy Severe Tongue and Verified 08/21/24 20:53 face swelling tamsulosin Allergy Severe angioedema Verified 08/21/24 20:53 Home Medications Medication Instructions Recorded Confirmed Type atorvastatin 80 mg tablet 80 mg PO HS 07/01/22 09/02/24 History finasteride 5 mg tablet 5 mg PO DAILY 07/01/22 09/02/24 History vitamins no.144-folic 2 tab PO DAILY 06/08/24 09/02/24 History acid 400 mcg chewable tablet () lanthanum 750 mg chewable tablet 750 mg PO TIDWMEAL 08/21/24 09/02/24 History (Fosrenol) triamcinolone acetonide 0.1 % 1 applic topical BID PRN Itching 08/21/24 09/02/24 History topical cream midodrine 5 mg tablet 5 mg PO BID #60 tabs 08/25/24 09/02/24 Rx amiodarone 200 mg tablet 200 mg PO DAILY #0 tabs 09/01/24 09/02/24 Rx calcitriol 0.25 mcg capsule 1 mcg (4 x 0.25 mcg) PO BID 30 09/01/24 09/02/24 Rx days #240 caps calcium acetate(phosphat bind) 667 1,334 mg (2 x 667 mg) PO TID #0 09/01/24 09/02/24 Rx mg capsule caps calcium carbonate (Tums E-X) 600 mg (2 x 300 mg (750 mg)) PO 09/01/24 09/02/24 Rx TID 30 days #180 tabs pantoprazole 40 mg tablet,delayed 40 mg PO BID #30 tabs 09/01/24 09/02/24 Rx release Past Med/Surg History Problem List Leukocytosis (Acute) Acute hypoxemic respiratory failure (Acute) Pulmonary edema (Acute) Sepsis (Acute) Sore throat and laryngitis History of recent surgery Voice hoarsenesses Hypotension (arterial) Hypocalcemia (Acute) Melena (Acute) Acute GI bleeding (Acute) Emphysema lung Pacemaker Atrial fibrillation with rapid ventricular response Severe sepsis Pneumonia (Acute) Second degree AV block 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 History of transcatheter aortic valve replacement (TAVR) Rectal bleeding Symptomatic anemia ESRD on dialysis (Acute) GI bleed (Acute) Anemia (Acute) End-stage renal disease on hemodialysis Acidosis Hypoxia (Acute) Respiratory acidosis Metabolic encephalopathy Anticoagulated on Coumadin Multifocal pneumonia Acute respiratory failure with hypoxia and hypercapnia Diverticulitis of ascending colon UTI (urinary tract infection) Urinary tract infection due to Pseudomonas aeruginosa (Acute) CKD (chronic kidney disease) stage 5, GFR less than 15 ml/min (Acute) Colon polyps Encounter for pre-operative examination BPH (benign prostatic hyperplasia) Hypertension 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 " On 04/03/11 18:15 Norma Vargas wrote "with outflow obstruction " On 04/03/11 18:15 Norma Vargas wrote "with outflow obstruction " On 04/03/11 18:15 Norma Vargas wrote "with outflow obstruction " Absent renal function (04/03/11) Medical History Anemia Gastric nodule Type 2 diabetes mellitus NIDDM Bifascicular block ongoing since 2010 Umbilical hernia chronic per patient-denies change or worsening History of blood transfusion pre-op aortic valve replacement CAD (coronary artery disease) s/p 1 stent in 2019 HTN (hypertension) controlled, stable per pt History of diverticulitis entered into EMR 09/2022-patient states last flare was 1 year ago History of colon polyps BPH (benign prostatic hyperplasia) CKD (chronic kidney disease), stage V Arthritis Hx of bladder cancer surgery only Hyperlipidemia Surgical History History of cataract surgery left and right H/O cystoscopy History of tooth extraction Aortic valve replaced 2019 at [facility] (followed by Dr. 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 Beliefs That Will Affect Care: None Current Living Situation: Spouse Other Information That Helps Us Care for You: No Feels Safe at Home: Yes Safety Concerns: Feels Safe At This Time Assistive Devices: Cane, Glasses and Hearing Aid - Bilateral Review of Systems Review of Systems: All systems reviewed & are unremarkable except as noted in HPI & below Physical Exam Constitutional: + acute distress, + obese and + lethargi c Eyes: PERRL, conjunctivae normal, anicteric sclerae ENMT: external ear and nose normal, oropharynx normal Neck: normal visual inspection and trachea midline Respiratory: + respiratory distress, + labored breath ing, + cough (productive, thick mucous, blood tinged), + abnormal respiratory pattern and + tachypneic Auscultation: + diminished lung sounds, + rales and + wheezes Cardiovascular: Rate/Rhythm: regular rate and regular rhythm Heart Sounds: no murmur weak peripheral pulses, edematous throughout, Gastrointestinal (Abdomen): Inspection/Auscultation: + abdomen distended, normal bowel sounds and + abdominal edema Percussion/Palpation: abdomen soft Musculoskeletal: Head/Neck/Chest: normocephalic and neck supple Skin: + skin tightening, + crusts, + dry skin and + ecchymosis Neurologic: normal touch/pain/proprioception and moves all extremities Motor/Sensory: no tremor and no sensory deficit Cranial Nerves: PERRL Psychiatric: Orientation: alert Eye Contact: good eye contact Lymphatic: no cervical or axillary lymphadenopathy Results & Data Results & Data Vital Signs (Past 12 Hours) Vital Signs Temp Pulse Pulse Resp BP BP Pulse Ox 09/02/24 13:13 63 32 H 82/35 L 91 09/02/24 13:02 61 30 H 97/45 L 92 09/02/24 12:40 64 28 H 91 09/02/24 12:20 62 22 97/50 L 92 09/02/24 12:10 65 33 H 103/70 92 09/02/24 12:03 61 04/18/25 12:00 37.9 C H 09/02/24 11:50 64 30 H 103/43 L 91 09/02/24 11:40 30 H 92 09/02/24 11:40 80 L 09/02/24 11:33 64 34 H 99/63 L 93 09/02/24 11:23 67 33 H 100/69 92 09/02/24 11:00 63 18 90 09/02/24 11:00 09/02/24 10:49 36.6 C 107 H 26 H 86/47 L 80 L O2 Del Method O2 Flow Rate FiO2 09/02/24 13:13 High Flow Nasal Cannula 35 60 09/02/24 13:02 High Flow Nasal Cannula 35 60 09/02/24 12:40 High Flow Nasal Cannula 60 35 09/02/24 12:20 Oxymask 10 09/02/24 12:10 Oxymask 10 09/02/24 12:03 09/02/24 12:00 09/02/24 11:50 Oxymask 8 09/02/24 11:40 Oxymask 8 09/02/24 11:40 Oxymask 0 09/02/24 11:33 Nebulizer 09/02/24 11:23 Nebulizer 09/02/24 11:00 Oxymask 6 09/02/24 11:00 Room Air 09/02/24 10:49 Nasal Cannula 4 Laboratory Results Short CBC 09/02/24 Range/Units 11:05 WBC 26.68 H (4.8-10.8) K/ul Hgb 9.6 L (14.0-18.0) g/dl Hct 31.3 L (42.0-52.0) % Plt Count 233 (130-400) K/uL BMP 09/02/24 11:05 Sodium 138 Potassium 4.6 Chloride 101 Carbon Dioxide 27 BUN 44 H Creatinine 9.47 H* D Glucose 218 H Calcium 8.3 L Liver Function 09/02/24 Range/Units 11:05 Total Bilirubin 0.9 (0.2-1.0) mg/dl AST 16 (13-39) U/L ALT 12 (7-52) U/L Alkaline Phosphatase 115 H (34-104) U/L Albumin 3.8 (3.4-5.0) gm/dl Diagnostic Findings Chest X-Ray 09/02/24 11:00 XR chest 1V not portable CLINICAL HISTORY: Sepsis COMPARISON STUDY: 08/21/2024 FINDINGS: There is stable cardiomegaly with increased pulmonary vascular congestion. There are interval diffuse interstitial and patchy pulmonary opacities most prominent in the lower lungs. Stable elevation of the right hemidiaphragm. No definite pleural effusion. No pneumothorax seen. IMPRESSION: 1. CHF. 2. Interval pulmonary opacities could represent pneumonia or pulmonary edema. ACT 112: Negative or not required by law. Electronically signed by: Aubrey Betancourt M.D. 09/02/2024 11:39 AM ECG Additional Comments: Sinus rhythm with ventricular paced complexes, premature supraventricular complexes, RBBB, T wave abnormality; Vent rate 67 bpm; QTc 557. Code Status & VTE Plan Code Status Full Code VTE Prophylaxis Plan VTE Prophylaxis will be ordered: Yes Supervising Physician Co-Signing Physician Notes see communication note.
[2024-09-02] MEDS ORDERED: ALBUT/IPRATROP 3MG/0.5MG NEB 3 ML VIAL INH PRN (14:22)
--- NOTE | 2024-09-02 14:34 | Electrocardiogram Report ---
Test Reason : Blood Pressure : */* mmHG Vent. Rate : 67 BPM Atrial Rate : 67 BPM P-R Int : 192 ms QRS Dur : 162 ms QT Int : 528 ms P-R-T Axes : 19 121 -31 degrees QTcB Int : 557 ms Sinus rhythm with frequent ventricular-paced complexes and Premature supraventricular complexes in a pattern of bigeminy Right bundle branch block Marked T wave abnormality, consider inferior ischemia Abnormal ECG When compared with ECG of 28-Aug-2024 12:18, Electronic ventricular pacemaker has replaced Sinus rhythm Confirmed by Wagner Angeles ([id number]) on 09/02/2024 2:34:03 PM Referred By: Confirmed By: Wagner Angeles
--- NOTE | 2024-09-02 14:59 | Cardiology Consultation ---
Date of Consultation September 02, 2024 Assessment & Plan (1) Acute hypoxemic respiratory failure: (2) Sepsis: (3) Pulmonary edema: (4) History of transcatheter aortic valve replacement (TAVR): Plan Patient presenting to [facility] with severe respiratory distress/acute sepsis/hypotension in setting of ESRD on HD and severe valvular heart disease. He has had multiple admissions over the last few months including episodes of GI bleeding, sepsis, respiratory failure, hypotension and intolerance of hemodialysis. Acute sepsis -elevated WBC -Recent admission for hospital acquired pneumonia -elevated lactate and procalcitonin -Blood cultures and urine cultures pending -started on broad spectrum antibiotics -Hypotension - arterial line placed. May need pressors Severe stenosis of his prosthetic TAVR. Increased gradients since October 2023. Attempted anticoagulation due to possible HALT, but did not improve. 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 Prognosis is limited at this time. Given multiple admissions and overall decline in his health over the last 6 months, would consider palliative care consult and discuss goals of care. Would also re-address Code status. No family present at time of evaluation. Further recommendations pending discussion/evaluation with Dr. Stovall I spent a total of 60 minutes on the date of service in preparation, delivery, and documentation of the care provided to this patient, excluding any time spent in the performance of separately billed services. Brittney Patino PA-C Department of Cardiology, [facility] This chart was completed in part utilizing Speech Voice Recognition Software. Grammatical errors, random word insertions, pronoun errors, and incomplete sentences are an occasional consequence of this system due to software limitations, ambient noise, and hardware issues. Any formal questions or concerns about the content, text, or information contained within the body of this dictation should be directly addressed to the provider for clarification. Supervising Physician Co-Signing Physician Notes Attending attestation: Case reviewed with the advanced practitioner. I have personally performed a history and physical examination on the patient. I have reviewed the advanced practitioner's documentation on the date of service referenced in note, and I agree with, and take responsibility for the plan of care. Subjective: Patient seen in the intensive care unit, room 108. Acutely ill. Presented back to the hospital from home with shortness of breath. Although he was found to have an elevated temperature, he denies subjective fever. Exam: Pulmonary: Decreased breath sounds at the bases Cardiovascular: Regular rhythm, 1/6 systolic murmur Data: EKG tracings x 2 today as well as review of telemetry reveal sinus rhythm with intermittent second-degree heart block and occasional ventricular paced QRS complexes. Impression/ Plan: Volume overload in the setting of end-stage renal disease, heart failure with preserved/hyperdynamic left ventricular systolic function. Patient with noted elevated velocity/gradients across the transcatheter aortic valve prosthesis which was placed in 2019. These have been present since 2023. Velocities did not improve with a 1 year trial of anticoagulation with Coumadin. Has been question whether or not the elevated velocities are due to hyperdynamic left ventricular systolic function with relative small LV outflow tract anatomy or prosthetic stenosis. Patient with disorder and calcium metabolism requiring recent parathyroidectomy. Due to intermittent heart block he had undergone an [employer] leadless pacemaker system. --Review of EKG and telemetry suggests that at times the patient is reverting to second-degree heart block without maintaining adequate AV synchrony. He has not had any bradycardia with rates in the range of 70 to 80 bpm, but would certainly be at risk for pacemaker syndrome from lack of AV synchrony. --Case discussed with electrophysiology, and we will adjust his device settings. --Patient has undergone arterial line placement and is currently undergoing a central line placement with dialysis to follow if he tolerates from a hemodynamic standpoint. -Patient with recent echocardiogram performed 4 days ago with findings relatively stable compared to previous, and no think this needs to be repeated at present. Dr Gentile assuming rounding on 09/03/24. I spent a total of 30 minutes coordinating, documenting, and providing care for this patient excluding time spent in the performance of separately billed services or time spent by another provider. Prashant Stovall, DO History of Present Illness Reason for Consultation: Acute respiratory failure - multifactorial; Sepsis; severe valvular disease Requesting Physician: Leni Hospitalist Attending Physician: Dr. Stovall History of Present Illness Patient is a very complex 78 year old male admitted to [facility] with worsening SOB He has been admitted multiple occasions over the last 4 months summarized below. Most recently admitted last week from 08/22-08/25 for sepsis/acute respiratory failure with HCAP s/p recent parathyroidectomy. Also found to have afib RVR during admission. treated with IV amiodarone and converted to NSR. Discharged on oral amiodarone. Started on Eliquis for anticoagulation with PPI for GI protection. On midodrine for hypotension secondary to dialysis. Readmitted on 08/28/24 for recurrent GI bleed. Eliquis discontinued. Received 2 units PRBC's with improved hbg. Amiodarone was continued He had an echo during that admission on 08/29/24 demonstrating hyperdynamic LVEF > 70% Elevated gradients s/p TAVR - concerning for possible obstruction Severe MAC Mild MS Compared with prior echo in Apr 2024, velocities are higher. He was discharged 09/01/24 Readmitted today, 09/02/24 with worsening respiratory status at home, cough, altered mental status at home He arrived the ED and found to be hypoxic in the 80's, requiring high flow oxygen with minimal improvement, hypotension, febrile, with elevated lactate, elevated WBC, and elevated procalcitonis Chest xray consistent with pulm vascular congestion and patchy opacities. Admitted to ICU and started on broad spectrum antibiotics. Hypotensive and arterial line placed by vegetable buncher. Attempting dialysis later today. EKG on admission demonstrating NSR with intermittent ventricular pacing. HS troponin elevated on admission, similar to past admissions. Patient has no chest pain AT time of consult, patient acutely ill, hypotensive. Limited review of systems due to conversational dyspnea and requiring high flow oxygen. Past Medical History: 1. History of severe aortic stenosis, status post TAVR, 2019 -Elevated velocities noted in October 2023- started on anticoagulation with Coumadin due to concerns for HALT -Repeat echo in December and Apr 2024 without improvement - elevated velocities noted and higher on Apr 2024 -coumadin was discontinued in May 2024 due to acute GI bleed with hbg of 5.9 on admission 2. 2nd degree AV block noted during admission in May 2024 with ventricular rates in the 40's - underwent dual chamber leadless pacemaker insertion in Jun 2024 3. History of CAD, status post stent to the left circumflex, 10/2019 4. ESRD , on HD since January 2024 5. Hyperlipidemia 6. Mitral stenosis (mild) 7. Bladder cancer- dx 05/2022 Allergies Allergy/AdvReac Type Severity Reaction Status Date / Time cephalexin Allergy Severe Tongue and Verified 08/21/24 20:53 face swelling tamsulosin Allergy Severe angioedema Verified 08/21/24 20:53 Home Medications Medication Instructions Recorded Confirmed Type atorvastatin 80 mg tablet 80 mg PO HS 07/01/22 09/02/24 History finasteride 5 mg tablet 5 mg PO DAILY 07/01/22 09/02/24 History vitamins no.144-folic 2 tab PO DAILY 06/08/24 09/02/24 History acid 400 mcg chewable tablet () lanthanum 750 mg chewable tablet 750 mg PO TIDWMEAL 08/21/24 09/02/24 History (Fosrenol) triamcinolone acetonide 0.1 % 1 applic topical BID PRN Itching 08/21/24 09/02/24 History topical cream midodrine 5 mg tablet 5 mg PO BID #60 tabs 08/25/24 09/02/24 Rx amiodarone 200 mg tablet 200 mg PO DAILY #0 tabs 09/01/24 09/02/24 Rx calcitriol 0.25 mcg capsule 1 mcg (4 x 0.25 mcg) PO BID 30 09/01/24 09/02/24 Rx days #240 caps calcium acetate(phosphat bind) 667 1,334 mg (2 x 667 mg) PO TID #0 09/01/24 09/02/24 Rx mg capsule caps calcium carbonate (Tums E-X) 600 mg (2 x 300 mg (750 mg)) PO 09/01/24 09/02/24 Rx TID 30 days #180 tabs pantoprazole 40 mg tablet,delayed 40 mg PO BID #30 tabs 09/01/24 09/02/24 Rx release Patient History Medical History Anemia Gastric nodule Type 2 diabetes mellitus NIDDM Bifascicular block ongoing since 2010 Umbilical hernia chronic per patient-denies change or worsening History of blood transfusion pre-op aortic valve replacement CAD (coronary artery disease) s/p 1 stent in 2019 HTN (hypertension) controlled, stable per pt History of diverticulitis entered into EMR 09/2022-patient states last flare was 1 year ago History of colon polyps BPH (benign prostatic hyperplasia) CKD (chronic kidney disease), stage V Arthritis Hx of bladder cancer surgery only Hyperlipidemia Surgical History History of cataract surgery left and right H/O cystoscopy History of tooth extraction Aortic valve replaced 2019 at [facility] (followed by Dr. Wei) History of heart artery stent 1 stent placed 2018 History of orchiectomy, unilateral History of arthroscopy of left knee History of colonoscopy Family History Mother Family history of diabetes mellitus Father Family hx of colon cancer Other No family history of adverse response to anesthesia Social History Smoking Status: Never smoker Second Hand Exposure: No; Do You Dip or Chew Tobacco: No; Hx Alcohol Use: No Hx Substance Use: No Preferred Language: Cuban Communication Ability: Effective Oncology Rep Required: No Beliefs That Will Affect Care: None Current Living Situation: Spouse Other Information That Helps Us Care for You: No Feels Safe at Home: Yes Safety Concerns: Feels Safe At This Time Assistive Devices: Cane, Glasses and Hearing Aid - Bilateral Review of Systems Review of Systems: All systems reviewed & are unremarkable except as noted in HPI & below Physical Exam Constitutional: + acute distress and + ill appearing Respiratory: + labored breathing, + cough and + tachy pneic; + not able to speak in complete sentence Auscultation: + crackles and + rhonchi Cardiovascular: Rate/Rhythm: regular rhythm Heart Sounds: + murmur (III/ systolic murmur LSB) Vessels: + JVD Extremities: + edema (1+ b/l edema) Results & Data Vital Signs (Past 12 Hours) Vital Signs Temp Pulse Pulse Resp BP BP Pulse Ox 09/02/24 14:24 37.4 C 54 L 30 H 93/50 L 91 09/02/24 13:54 84 30 H 90 09/02/24 13:23 09/02/24 13:22 60 32 H 119/89 92 09/02/24 13:13 63 32 H 82/35 L 91 09/02/24 13:02 61 30 H 97/45 L 92 09/02/24 12:40 64 28 H 91 09/02/24 12:20 62 22 97/50 L 92 09/02/24 12:10 65 33 H 103/70 92 09/02/24 12:03 61 09/02/24 12:00 37.9 C H 09/02/24 11:50 64 30 H 103/43 L 91 09/02/24 11:40 30 H 92 09/02/24 11:40 80 L 09/02/24 11:33 64 34 H 99/63 L 93 09/02/24 11:23 67 33 H 100/69 92 09/02/24 11:00 63 18 90 09/02/24 11:00 09/02/24 10:49 36.6 C 107 H 26 H 86/47 L 80 L O2 Del Method O2 Flow Rate FiO2 09/02/24 14:24 High Flow Nasal Cannula 35 65 09/02/24 13:54 High Flow Nasal Cannula 65 35 09/02/24 13:23 High Flow Nasal Cannula 09/02/24 13:22 High Flow Nasal Cannula 09/02/24 13:13 High Flow Nasal Cannula 35 60 09/02/24 13:02 High Flow Nasal Cannula 35 60 09/02/24 12:40 High Flow Nasal Cannula 60 35 09/02/24 12:20 Oxymask 10 09/02/24 12:10 Oxymask 10 09/02/24 12:03 09/02/24 12:00 09/02/24 11:50 Oxymask 8 09/02/24 11:40 Oxymask 8 09/02/24 11:40 Oxymask 0 09/02/24 11:33 Nebulizer 09/02/24 11:23 Nebulizer 09/02/24 11:00 Oxymask 6 09/02/24 11:00 Room Air 09/02/24 10:49 Nasal Cannula 4 Laboratory Results Cardiac Enzymes 09/02/24 Range/Units 11:05 AST 16 (13-39) U/L Troponin I High Sens 125.0 H* (0-20) pg/ml B-Natriuretic Peptide 3456 H (0-100) pg/ml Coagulation 09/02/24 Range/Units 11:05 PT 12.0 (9.0-12.0) Seconds APTT 31 (21-31) Seconds B-Natriuretic Peptide 3456 H (0-100) pg/ml CBC 09/02/24 Range/Units 11:05 WBC 26.68 H (4.8-10.8) K/ul RBC 3.05 L (4.70-6.10) M/uL Hgb 9.6 L (14.0-18.0) g/dl Hct 31.3 L (42.0-52.0) % Plt Count 233 (130-400) K/uL Neut # (Auto) 22.21 H (1.40-6.50) K/uL Lymph # (Auto) 0.89 L (1.20-3.40) K/uL Brantley # (Auto) 2.67 H (0.11-0.59) K/uL Eos # (Auto) 0.02 (0.00-0.50) K/uL Baso # (Auto) 0.09 (0.00-0.20) K/uL Comprehensive Metabolic Panel 09/02/24 Range/Units 11:05 Sodium 138 (136-145) mmol/L Potassium 4.6 (3.5-5.1) mmol/L Chloride 101 (98-107) mmol/L Carbon Dioxide 27 (21-32) mmol/L BUN 44 H (6-23) mg/dl Creatinine 9.47 H* D (0.6-1.4) mg/dl Glucose 218 H (70-99(Fasting)) mg/dl Calcium 8.3 L (8.6-10.3) mg/dl AST 16 (13-39) U/L ALT 12 (7-52) U/L Alkaline Phosphatase 115 H (34-104) U/L Total Protein 6.7 (6.0-8.3) gm/dl Albumin 3.8 (3.4-5.0) gm/dl Intake and Output 09/02/24 09/02/24 09/02/24 06:59 14:59 22:59 Intake Total 100 / 100 Balance 100 / 100 Intake: IV 100 / 100 Piperacillin/Tazobactam 4.5 gm 100 / 100 In 100 ml @ 200 mls/hr IV NOW ONE Rx#:[id number] Other: Weight 99.1 kg Weight Measurement Method Built in [facility] Patient Weight 09/03/24 06:59 Weight 99.1 kg Diagnostic Findings Telemetry reviewed: NSR with intermittent 2:1 AV block and ventricular pacing Chest X-Ray 09/02/24 11:00 XR chest 1V not portable CLINICAL HISTORY: Sepsis COMPARISON STUDY: 08/21/2024 FINDINGS: There is stable cardiomegaly with increased pulmonary vascular congestion. There are interval diffuse interstitial and patchy pulmonary opacities most prominent in the lower lungs. Stable elevation of the right hemidiaphragm. No definite pleural effusion. No pneumothorax seen. IMPRESSION: 1. CHF. 2. Interval pulmonary opacities could represent pneumonia or pulmonary edema. ACT 112: Negative or not required by law. Electronically signed by: Aubrey Betancourt M.D. 09/02/2024 11:39 AM Medications Administered Current Inpatient Medications Albuterol (Albut/Ipratrop 3mg/0.5mg Neb 3 Ml Vial) 3 ml INH Q4H PRN PRN Reason: Dyspnea Stop: 10/02/24 14:21 Amiodarone HCl (Amiodarone 200 Mg Tab) 200 mg PO DAILY NATHANAEL Stop: 10/03/24 08:59 Atorvastatin Calcium (Atorvastatin 40 Mg Tab) 80 mg PO HS NATHANAEL Stop: 10/02/24 20:59 Calcitriol (Calcitriol 0.25 Mcg Capsule) 1 mcg PO BID NATHANAEL Stop: 10/02/24 20:59 Calcium Acetate (Calcium Acetate 667 Mg Cap/Tab) 1,334 mg PO TID NATHANAEL Stop: 10/02/24 14:21 Last Admin: 09/02/24 15:41 Dose: Not Given Calcium Carbonate (Calcium Carbonate 500 Mg Chewable Tab) 500 mg PO TID NATHANAEL Stop: 10/02/24 20:59 Finasteride (Finasteride 5 Mg Tab) 5 mg PO DAILY NATHANAEL Stop: 10/03/24 08:59 Heparin Sodium (Porcine) (Heparin Sod 5,000 Unit/0.5 Ml Vial) 7,500 units SQ Q8 NATHANAEL Stop: 10/02/24 21:59 Sodium Chloride (Nss) 1,000 mls @ 0 mls/hr IV .Q0M PRN PRN Reason: For Hemodialysis Use ONLY Stop: 09/02/24 19:21 Piperacillin Sod/Tazobactam Sod (Zosyn) 4.5 gm in 100 mls @ 25 mls/hr IV Q12H [facility]; Protocol Stop: 09/07/24 20:59 Levofloxacin/Dextrose (Levaquin/D5w) 750 mg in 150 mls @ 100 mls/hr IV ONE ONE; Protocol Stop: 09/02/24 16:29 Last Admin: 09/02/24 15:21 Dose: 100 mls/hr Levofloxacin/Dextrose (Levaquin/D5w) 250 mg in 50 mls @ 50 mls/hr IV Q24H NATHANAEL Stop: 09/07/24 14:59 Thiamine HCl 100 mg/ Syringe 10 mls @ 2 mls/min IV QAM [facility] Stop: 10/02/24 15:29 Phenylephrine HCl (Phenylephrine/Nss) 25 mg in 250 mls @ 29.73 mls/hr IV .Q8H25M [facility]; Protocol Stop: 10/02/24 15:29 Last Admin: 09/02/24 15:27 Dose: 0.5 mcg/kg/min, 29.7 mls/hr Midodrine (Midodrine Hcl 2.5 Mg Tab) 5 mg PO TODAY@0700,1700 [facility] Stop: 10/02/24 16:59 Miscellaneous (Icu Protocol For Hyperglycemia) 1 each N/A ACHS [facility] Stop: 09/04/24 16:29 Miscellaneous (Order Awaiting Action) 1 each N/A QS NATHANAEL Stop: 10/02/24 15:59 Last Admin: 09/02/24 15:41 Dose: Not Given Miscellaneous Information (Vancomycin Consult Active) 1 each N/A UD PRN PRN Reason: Consult Stop: 10/02/24 11:48 Pantoprazole Sodium (Pantoprazole 40 Mg Tab) 40 mg PO DAILY [facility] Stop: 10/02/24 20:59 (2) Sepsis Sepsis acute organ dysfunction status: without acute organ dysfunction Sepsis type: sepsis due to unspecified organism Qualified Code(s): A41.9 - Sepsis, unspecified organism
--- NOTE | 2024-09-02 15:04 | Pharmacy Report ---
Pharmacy PK ABX Note - Date of Service September 02, 2024 - Assessment and Plan Assessment 78 year old M receiving vancomycin and levofloxacin for empiric sepsis coverage. Blood cultures pending, MRSA nasal pending. ESRD on iHD. ID consulted. Day #1 of antimicrobial therapy. Plan Vancomycin * Loading dose: 2000 mg IV x 1 * Given iHD, will plan to dose vancomycin by levels around HD. * HD orders placed for today, however not yet dialyzed. * Will obtain a random vancomycin level tomorrow AM with AM labs to guide further dosing. Pharmacy will continue to follow and will adjust dose/frequency as necessary. Thank you. Pharmacy has transitioned to AUC monitoring for vancomycin. AUC/RANDI is the preferred PK/PD target and is associated with decreased risk of nephrotoxicity compared to traditional trough targets.
[2024-09-02] MEDS ORDERED: STAT IV Infusion **Titration per Protocol STA ×4 (15:17→20:28)
[2024-09-02] MEDS: levoFLOXacin/D5W 750 MG/150 ML BAG IV ONE (15:21)
[2024-09-02] MEDS: PHENYLEPHRINE/NSS 25 MG/250 ML BAG IV SCH (15:27)
--- NOTE | 2024-09-02 15:28 | Procedure Note ---
Procedure Note Date of Service September 02, 2024 Procedure date: Noted above Procedure: Radial artery cannulation Pre-procedure Diagnosis: Need for invasive monitoring and hypotension Post-procedure Diagnosis: same as above Prior to Procedure: Informed Consent: The risks, benefits, indications, potential complications, and alternatives were explained to the patient and informed consent obtained. Attending Staff: Peggy Aguilera DO Skin Prep: Chlorhexidine Anesthesia: 3 mL 1% lidocaine without epinephrine The identity of the patient was confirmed and a bedside time out was performed. Description of Procedure: After sterile prep and sterile drape utilizing standard sterile technique the superficial skin of the right radial artery was anesthetized. The target artery was identified via dynamic ultrasound guidance and entered with a 20-gauge arrow Angiocath. Pulsatile bright red blood return was noted. Via modified Seldinger technique the self-contained guidewire was advanced and the Angiocath advanced over the guidewire. The guidewire was removed and brisk arterial blood return was noted. The pressure monitor was connected, and the arterial line was secured via commercial securement device. A sterile dressing was then applied. Complications: None Estimated blood loss: Trace Patient tolerated the procedure well. Procedure Date: Noted above Procedure: Procedural Ultrasound Indication: Arterial access for invasive monitoring Attending: Peggy Aguilera DO Artery visualized: Yes Pulsatility of artery: Yes Artery patent: Yes Line confirmed in artery with ultrasound: Yes Impression: Successful arterial cannulation Images obtained are saved for permanent record [facility] [place], [place] Procedure Codes (Charges) Tubes, Drains, and Vasc Access Procedure 1: Tubes, Drains, and Vasc Access: [id number] Arterial Cath/Cannulation Sampling/Monitoring/Transfusion Procedure 2: Tubes, Drains, and Vasc Access: [id number] Ultrasound Guidance For Vascular Coding CPT Codes Tubes, Drains, and Vasc Access - Tubes, Drains, and Vasc Access: [id number] Arterial Cath/Cannulation Sampling/Monitoring/Transfusion ([id number]) Tubes, Drains, and Vasc Access - Tubes, Drains, and Vasc Access: [id number] Ultrasound Guidance For Vascular ([id number]) Additional Codes Date of Service ([email or web address])
[2024-09-02] MEDS: CALCIUM ACETATE 667 MG CAP/TAB PO SCH (15:41)
[2024-09-02] MEDS ORDERED: Nursing to Pharmacy Communication SCH ×5 (16:30→23:30)
[2024-09-02] MEDS: PHENYLEPHRINE/NSS 100 MG/250 ML BAG IV SCH (17:06)
[2024-09-02] MEDS: CALCIUM GLUCONATE 1,000 MG/60 ML BAG IV SCH (17:21)
[2024-09-02] MEDS: THIAMINE HCL 100 MG in SYRINGE 9 ML IV SCH (17:21)
[2024-09-02] MEDS ORDERED: CARBOHYDRATES FOR HYPOGLYCEMIA PO PRN (17:32)
[2024-09-02] MEDS ORDERED: GLUCOSE 10 TAB/TUBE PO PRN (17:32)
[2024-09-02] MEDS ORDERED: GLUCAGON FOR INJ 1 MG VIAL SQ PRN (17:32)
[2024-09-02] MEDS ORDERED: GLUCOSE 40% GEL 15 GM TUBE PO PRN (17:32)
[2024-09-02] MEDS ORDERED: DEXTROSE 50% 50 ML SYRINGE IV PRN (17:32)
--- NOTE | 2024-09-02 17:32 | Nephrology Consultation ---
Date of Consultation September 02, 2024 Assessment & Plan (1) End-stage renal disease on hemodialysis: HD today 3 hrs w/ goal 2.5 L fluid off likely to need pressor support; no heparin; will eval for repeat tx in AM but likely to need this; K 4.5; hgb 9.9; access is AVF so not likely dialysis related infection Care coordinated w/ Olivier Espitia & Ale re HD timing, need for pressors w/ HD, importance of monitoring calcium, cardiac status; we are in agreement. (2) Sepsis: hypotension, fever, leukocytosis, acute respiratory failure -blood cultures taken as are others -on abtx (3) Acute hypoxemic respiratory failure: abrupt worsening of resp status past 12 hrs > HD w/ UF and pressor support and midodrine; treat potential resp infections; f/u cardiology recommendations (4) Hypocalcemia: had been requiring near daily IV calcium to maintain low normal levels last admission -cont calcitriol 1 mcg tid -cont calcium carbonate >> dose i s low >>may need to supplement w/ IV calcium >> level today 8.3 History of Present Illness Reason for Consultation: ESRD on HD Requesting Physician: Dr Loving Attending Physician: Michael Loving MD History of Present Illness 78 y/o M whom I'm asked to see for dialysis needs was readmitted today w/ concern for sepsis after d/c home only yesterday afternoon from admission w/ hypocalcemia and GI bleeding. PMH includes ESRD on HD (currently in training for home HD) under my care at [facility]. D/t severe secondary hyperparathyroidism he underwent parathyroidectom [facility] 08/19/24. Also has aortic stenosis, s/p TAVR w/ elevated prosthesis velocities, intermittent LBBB/conduction system disease s/p Jun 2024 leadless pacer insertion, CAD s/p 1999 circumflex stent, chronic hypotension on midodrine, HL, h/o bladder cancer and prostatic hypertrophy, diet controlled DM. 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 admitted here 08/21-08/25 for pneumonia and AF w/ RVR. Admitted here 08/28-09/01 for GI bleeding, low Ca postoperatively. last evening at home he became acutely dyspneic about 2300 and had marked orthopnea and dyspnea overnight; states O2 at home was not working properly. was en route to get OP dialysis labs and breathing worsened more so brought him to ER: temp 37.9 on arrival and on 8L oxymask w/ CXR showing HF. today is his dialysis day. denies excessive fluid intake since hospital d/c yesterday. no n/v, no rash; no bleeding (though there was blood on suctioning). no chest pain or palpitations Allergies Allergy/AdvReac Type Severity Reaction Status Date / Time cephalexin Allergy Severe Tongue and Verified 08/21/24 20:53 face swelling tamsulosin Allergy Severe angioedema Verified 08/21/24 20:53 Home Medications Medication Instructions Recorded Confirmed Type atorvastatin 80 mg tablet 80 mg PO HS 07/01/22 09/02/24 History finasteride 5 mg tablet 5 mg PO DAILY 07/01/22 09/02/24 History vitamins no.144-folic 2 tab PO DAILY 06/08/24 09/02/24 History acid 400 mcg chewable tablet () lanthanum 750 mg chewable tablet 750 mg PO TIDWMEAL 08/21/24 09/02/24 History (Fosrenol) triamcinolone acetonide 0.1 % 1 applic topical BID PRN Itching 08/21/24 09/02/24 History topical cream midodrine 5 mg tablet 5 mg PO BID #60 tabs 08/25/24 09/02/24 Rx amiodarone 200 mg tablet 200 mg PO DAILY #0 tabs 09/01/24 09/02/24 Rx calcitriol 0.25 mcg capsule 1 mcg (4 x 0.25 mcg) PO BID 30 09/01/24 09/02/24 Rx days #240 caps calcium acetate(phosphat bind) 667 1,334 mg (2 x 667 mg) PO TID #0 09/01/24 09/02/24 Rx mg capsule caps calcium carbonate (Tums E-X) 600 mg (2 x 300 mg (750 mg)) PO 09/01/24 09/02/24 Rx TID 30 days #180 tabs pantoprazole 40 mg tablet,delayed 40 mg PO BID #30 tabs 09/01/24 09/02/24 Rx release Patient History Medical History Anemia Gastric nodule Type 2 diabetes mellitus NIDDM Bifascicular block ongoing since 2010 Umbilical hernia chronic per patient-denies change or worsening History of blood transfusion pre-op aortic valve replacement CAD (coronary artery disease) s/p 1 stent in 2019 HTN (hypertension) controlled, stable per pt History of diverticulitis entered into EMR 09/2022-patient states last flare was 1 year ago History of colon polyps BPH (benign prostatic hyperplasia) CKD (chronic kidney disease), stage V Arthritis Hx of bladder cancer surgery only Hyperlipidemia Surgical History History of cataract surgery left and right H/O cystoscopy History of tooth extraction Aortic valve replaced 2019 at [facility] (followed by Dr. Wei) History of heart artery stent 1 stent placed 2018 History of orchiectomy, unilateral History of arthroscopy of left knee History of colonoscopy Family History Mother Family history of diabetes mellitus Father Family hx of colon cancer Other No family history of adverse response to anesthesia Social History Smoking Status: Never smoker Second Hand Exposure: No; Do You Dip or Chew Tobacco: No; Hx Alcohol Use: No Hx Substance Use: No Preferred Language: Frisian Communication Ability: Effective Textile Bag Sewer Required: No Beliefs That Will Affect Care: None Current Living Situation: Spouse Other Information That Helps Us Care for You: No Feels Safe at Home: Yes Safety Concerns: Feels Safe At This Time Assistive Devices: Cane, Glasses and Hearing Aid - Bilateral Review of Systems 2 Review of Systems: All systems reviewed & are unremarkable except as noted in HPI & below Physical Exam 2 Constitutional: well developed, well nourished, + acute distress, + ill appearing, + frail appearing and cooperative Eyes: EOM intact bilaterally ENMT: Mouth: + dry oral mucous membranes Respiratory: + labored breathing, + cough and + tachy pneic; + not able to speak in complete sentence Auscultation: + diminished lung sounds and + rhonchi Cardiovascular: Rate/Rhythm: regular rate and regular rhythm Heart Sounds: + murmur Extremities: + edema and + AV fistula Gastrointestinal (Abdomen): Inspection/Auscultation: normal bowel sounds P ercussion/Palpation: abdomen soft; abdomen nontender Musculoskeletal: Extremities: strength 5/5 throughout Skin: no rashes, warm and dry Neurologic: ford, fluent speech, no tremor Results & Data Vital Signs (Past 12 Hours) Vital Signs Temp Pulse Pulse Resp BP BP Pulse Ox 09/02/24 16:41 09/02/24 16:40 09/02/24 15:46 95/56 L 09/02/24 15:39 92 H 25 H 94 09/02/24 15:33 73 24 93 09/02/24 15:31 97/58 L 09/02/24 15:31 97/58 L 09/02/24 15:31 97/58 L 09/02/24 15:21 87 30 H 94 09/02/24 15:17 76/53 L 09/02/24 15:17 76/53 L 09/02/24 15:15 77 33 H 96 09/02/24 15:00 82/40 L 09/02/24 14:51 62 36 H 92 09/02/24 14:45 63 31 H 92 09/02/24 14:45 87/41 L 09/02/24 14:45 87/41 L 09/02/24 14:31 92/42 L 09/02/24 14:30 60 33 H 89 L 09/02/24 14:24 37.4 C 54 L 30 H 93/50 L 91 09/02/24 14:21 63 30 H 93 09/02/24 14:15 66 09/02/24 14:03 61 28 H 93 09/02/24 14:02 83/40 L 09/02/24 13:54 84 30 H 90 09/02/24 13:23 09/02/24 13:22 60 32 H 119/89 92 09/02/24 13:13 63 32 H 82/35 L 91 09/02/24 13:02 61 30 H 97/45 L 92 09/02/24 12:40 64 28 H 91 09/02/24 12:20 62 22 97/50 L 92 09/02/24 12:10 65 33 H 103/70 92 09/02/24 12:03 61 09/02/24 12:00 37.9 C H 09/02/24 11:50 64 30 H 103/43 L 91 04/18/25 11:40 30 H 92 09/02/24 11:40 80 L 09/02/24 11:33 64 34 H 99/63 L 93 09/02/24 11:23 67 33 H 100/69 92 09/02/24 11:00 63 18 90 09/02/24 11:00 09/02/24 10:49 36.6 C 107 H 26 H 86/47 L 80 L Pulse Ox O2 Del Method O2 Del Method O2 Flow Rate O2 Flow Rate FiO2 09/02/24 16:41 High Flow Nasal Cannula 35 65 09/02/24 16:40 91 High Flow Nasal Cannula 35 09/02/24 15:46 09/02/24 15:39 09/02/24 15:33 09/02/24 15:31 09/02/24 15:31 09/02/24 15:31 09/02/24 15:21 09/02/24 15:17 09/02/24 15:17 09/02/24 15:15 09/02/24 15:00 09/02/24 14:51 09/02/24 14:45 09/02/24 14:45 09/02/24 14:45 09/02/24 14:31 09/02/24 14:30 09/02/24 14:24 High Flow Nasal Cannula 35 65 09/02/24 14:21 09/02/24 14:15 09/02/24 14:03 09/02/24 14:02 09/02/24 13:54 High Flow Nasal Cannula 65 35 09/02/24 13:23 High Flow Nasal Cannula 09/02/24 13:22 High Flow Nasal Cannula 09/02/24 13:13 High Flow Nasal Cannula 35 60 09/02/24 13:02 High Flow Nasal Cannula 35 60 09/02/24 12:40 High Flow Nasal Cannula 60 35 09/02/24 12:20 Oxymask 10 09/02/24 12:10 Oxymask 10 09/02/24 12:03 09/02/24 12:00 09/02/24 11:50 Oxymask 8 09/02/24 11:40 Oxymask 8 09/02/24 11:40 Oxymask 0 09/02/24 11:33 Nebulizer 09/02/24 11:23 Nebulizer 09/02/24 11:00 Oxymask 6 09/02/24 11:00 Room Air 09/02/24 10:49 Nasal Cannula 4 Laboratory Results 09/02/24 11:05 09/02/24 11:05 Diagnostic Findings cxr wet (2) Sepsis Sepsis acute organ dysfunction status: without acute organ dysfunction Sepsis type: sepsis due to unspecified organism Qualified Code(s): A41.9 - Sepsis, unspecified organism
[2024-09-02] MEDS: MIDODRINE HCL 2.5 MG TAB PO SCH (17:35)
[2024-09-02] MEDS: ICU Protocol for HYPERglycemia SCH (17:36)
--- NOTE | 2024-09-02 18:04 | Electrocardiogram Report ---
Test Reason : Blood Pressure : */* mmHG Vent. Rate : 73 BPM Atrial Rate : 17 BPM P-R Int : * ms QRS Dur : 190 ms QT Int : 598 ms P-R-T Axes : * -55 53 degrees QTcB Int : 658 ms Ventricular-paced rhythm with premature ventricular or aberrantly conducted complexes and with ventri cular escape complexes AV dissociation Abnormal ECG When compared with ECG of 02-Sep-2024 11:03, Premature supraventricular complexes are no longer Present Sinus rhythm is now with ventricular escape complexes Vent. rate has increased by 6 bpm Confirmed by Wagner Angeles ([id number]) on 09/02/2024 6:04:09 PM Referred By: REFERRED SELF Confirmed By: Wagner Angeles
--- NOTE | 2024-09-02 18:06 | Communication Note ---
Date of Service: September 02, 2024 Device mode changed to allow for AV synchrony. Pt with worsening respiratory status. Trial of BiPap and attempt at HD plan versus escalation to endotracheal tube placement. Chloe Stovall DO Cardiology
[2024-09-02 18:27] LABS: iSTAT Art Bld Gas pCO2 Correct 55 mmHg (35-46); iSTAT Arterial Blood Gas HCO3 25 meg/L (19-24); iSTAT Arterial Blood Gas pCO2 55 mmHg (35-46); iSTAT Arterial Blood Gas pH 7.28 (7.35-7.45); iSTAT Arterial Blood Gas pO2 67 mmHg (80-95); iSTAT Arterial Blood Gas pO2 C 69; iSTAT Carbon Dioxide 27 mmol/L (24-31); iSTAT FiO2 100 %; iSTAT Hematocrit 29 % (42-52); iSTAT Hemoglobin 9.9 g/dl (14.0-18.0); iSTAT Potassium 5.5 mmol/L (3.3-5.0); iSTAT Sample Type Arterial; iSTAT Site Art Line; iSTAT Sodium 137 mmol/L (135-144); iSTAT SpO2 91
[2024-09-02] MEDS ORDERED: fentaNYL BOLUS from BAG IV PRN (18:41)
[2024-09-02] MEDS: DOPamine / D5W 400 MG/250 ML BAG IV SCH (18:55)
--- NOTE | 2024-09-02 18:55 | Communication Note ---
Date of Service: September 02, 2024 Unfortunately patient's respiratory status has continued to decline. Profound hypotension despite maximum dose neosynephrine. He was intubated without incid ent by Dr. Aguilera at 1830. Copious frothy secretions within ETT. Dopamine gtt started at 10mcg/kg/min with improvement. PEEP 10/1.0. CXR pending. Deeply sedate via Versed and Fentanyl gtt while undergoing UF. Will update family accordingly. Further management as clinical course progresses. 1944: Repeat ABG 1 hour post-intubation is pending. Requiring increasing dose of dopamine to maintain perfusion. Will cap at 15mcg/kg/min. If remains hypotensive despite this will need to back off UF. at bedside, will update her now. 2004: UF stopped due to instability. Total 1.5L off. Remains hypoxemic despite PEEP 12 and Fio2 1.0. Bilateral opacities on CXR with pulmonary edema pattern. In-line suction with moderate secretions at times and other times dry, not enough to warrant therapeutic bronchoscopy and not consistent with DAH. Will plan to deeply sedate with subsequent continuous NMB. Will plan to obtain optimal PEEP with paralysis. I suspect we will need to increase to at least 14. ABG now 7.23/66/61/28 c/w his SpO2 of 85%. is aware of the extremely poor prognosis and possibility of impending cardiac arrest. She also understands that if despite all aggressive measures his heart were to stop, the likelihood of restarting his heart is minimal. The likelihood of meaningful recovery is even less. She tells me that Elkin is adamant about CPR. I asked her if Elkin had all of this information that you have, would he still want CPR? She said he was very clear about his intentions. We will respect Elkin's wishes and provide CPR in the setting of cardiac arrest. Coding Level of Care Code 63525 CRITICAL CARE EA ADD 30M Time Spent (min) 34
[2024-09-02] MEDS: MIDAZOLAM HCL 125 MG/250 ML BAG IV SCH ×2 (18:57→23:34)
[2024-09-02] MEDS: fentaNYL citrate 2,500 MCG/250 ML BAG IV SCH (18:58)
[2024-09-02] MEDS: MIDAZOLAM HCL 125MG/250ML D5W IV ONE (19:27)
[2024-09-02] MEDS: fentaNYL citrate 2,500 MCG/250 ML BAG IV ONE (19:28)
[2024-09-02] MEDS: SODIUM BICARB 8.4% INJ 50 MEQ/50 ML SYR IV ONE (19:28)
[2024-09-02] MEDS: DOPamine 400MG / 250ML D5W IV ONE (19:28)
[2024-09-02] MEDS: SODIUM BICARB 8.4% INJ 50 MEQ/50 ML SYR IV STA (19:39)
[2024-09-02 20:20] LABS: iSTAT Art Bld Gas pCO2 Correct 66 mmHg (35-46); iSTAT Art Bld Gas pH Corrected 7.234 (7.35-7.45); iSTAT Arterial Blood Gas HCO3 28 meg/L (19-24); iSTAT Arterial Blood Gas pCO2 66 mmHg (35-46); iSTAT Arterial Blood Gas pH 7.23 (7.35-7.45); iSTAT Arterial Blood Gas pO2 61 mmHg (80-95); iSTAT Arterial Blood Gas pO2 C 61; iSTAT Carbon Dioxide 30 mmol/L (24-31); iSTAT FiO2 100 %; iSTAT Hematocrit 33 % (42-52); iSTAT Hemoglobin 11.2 g/dl (14.0-18.0); iSTAT Potassium 3.9 mmol/L (3.3-5.0); iSTAT Sample Type Arterial; iSTAT Site Art Line; iSTAT Sodium 138 mmol/L (135-144); iSTAT SpO2 87
[2024-09-02] MEDS ORDERED: STAT IV/IM STA (20:28)
[2024-09-02] MEDS: RAPID SEQUENCE INDUCTION BAG ONE (21:07)
--- NOTE | 2024-09-02 21:14 | XRay Report ---
EXAM: XR chest 1V portable CLINICAL HISTORY: ETT TECHNIQUE: An X-ray image of the chest is obtained in AP projection. COMPARISON: 08/21/2024 CT and xray/. FINDINGS: Ett is seen in good position with lower end 5.2 cm above the ashly. NG tube is seen with lower end extending into the gastric shadow. Pulmonary Parenchyma: Lungs show areas of consolidation mainly central. No pulmonary nodules are identified. No evidence of pleural effusion or pleural thickening. Heart and Mediastinum: Heart size and shape are normal. No mediastinal widening or masses. No hilar or mediastinal lymphadenopathy. Bony Thorax: Bony thorax appears intact without fractures or deformities. Soft Tissues: Soft tissues overlying the chest wall are unremarkable. IMPRESSION: 1. Ett is seen in good position with lower end 5.2 cm above the ashly. 2. NG tube is seen with lower end extending into the gastric shadow. 3. Lungs show areas of extendive consolidation mainly central. likely pulmonary edema. Interval progression Electronically signed by Lazaro Vergara 09-02-2024 9:14 PM
[2024-09-02] MEDS: CISATRACURIUM BESYLATE IV SOLN 2 MG/ML 10 ML VIAL IV STA (21:33)
[2024-09-02] MEDS: CISATRACURIUM BESYLATE 40 MG in DEXTROSE 5% 80 ML IV SCH (21:34)
[2024-09-02] MEDS: ATORVASTATIN 40 MG TAB PO SCH (21:45)
[2024-09-02] MEDS: CALCIUM CARBONATE 500 MG CHEWABLE TAB PO SCH (21:46)
[2024-09-02] MEDS: CALCITRIOL 0.25 MCG CAPSULE PO SCH (21:46)
[2024-09-02] MEDS: PANTOprazole 40 MG TAB PO SCH (21:47)
[2024-09-02] MEDS: PIPERACILLIN/TAZOBACTAM 4.5 GM/100 ML BAG IV SCH (21:47)
[2024-09-02] MEDS: INSULIN ASPART PER UNIT CHARGE SC SCH (22:41)
[2024-09-02] MEDS: HEPARIN SOD 5,000 UNIT/0.5 ML VIAL SQ SCH (23:05)
[2024-09-02 23:30] LABS: iSTAT Art Bld Gas pCO2 Correct 65 mmHg (35-46); iSTAT Art Bld Gas pH Corrected 7.245 (7.35-7.45); iSTAT Arterial Blood Gas HCO3 28 meg/L (19-24); iSTAT Arterial Blood Gas pCO2 62 mmHg (35-46); iSTAT Arterial Blood Gas pH 7.26 (7.35-7.45); iSTAT Arterial Blood Gas pO2 122 mmHg (80-95); iSTAT Arterial Blood Gas pO2 C 128; iSTAT Carbon Dioxide 30 mmol/L (24-31); iSTAT FiO2 100 %; iSTAT Hematocrit 31 % (42-52); iSTAT Hemoglobin 10.5 g/dl (14.0-18.0); iSTAT Potassium 4.4 mmol/L (3.3-5.0); iSTAT Sample Type Arterial; iSTAT Site Art Line; iSTAT Sodium 138 mmol/L (135-144); iSTAT SpO2 100
[2024-09-02] MEDS: ARTIFICIAL TEARS OP OINT 3.5 GM TUBE OP SCH (23:38)
[2024-09-03 01:22] LABS: BUN Creatinine Ratio 4.7 (10-20); Calcium 7.5 mg/dl (8.6-10.3); Creatinine Clr Calc Pharmacy 8.8 ml/min; Magnesium 1.8 mg/dl (1.7-2.4); Potassium 4.4 mmol/L (3.5-5.1)
[2024-09-03 06:05] LABS: Basophilic Stippling 1+; Basophils % (auto) 0.6 %; Eosinophils # (auto) 0.06 K/uL (0.00-0.50); Eosinophils % (auto) 0.2 %; Hematocrit (blood only) 30.7 % (42.0-52.0); Hemoglobin 9.6 g/dl (14.0-18.0); Immature Granulocytes # (auto) 0.89 K/uL (0.01-0.20); Immature Granulocytes % (auto) 2.6 %; Lymphocytes # (auto) 1.68 K/uL (1.20-3.40); Lymphocytes % (auto) 4.9 %; Mean Corpuscular Hemoglobin 32.2 pg (25.0-34.0); Mean Corpuscular Hgb Conc 31.3 g/dL (32.0-36.0); Mean Platelet Volume 11.1 fL (9.4-12.4); Monocytes # (auto) 3.26 K/uL (0.11-0.59); Monocytes % (auto) 9.5 %; Neutrophils # (auto) 28.32 K/uL (1.40-6.50); Neutrophils % (auto) 82.2 %; Nucleated RBC # (auto) 0.35 K/uL (0.00-0.12); Platelet Count 234 K/uL (130-400); Polychromasia 1+; RDW Coefficient of Variation 19.1 % (11.5-14.5); RDW Standard Deviation 68.6 fL (36.4-46.3); Red Blood Count 2.98 M/uL (4.70-6.10); White Blood Count 34.41 K/ul (4.8-10.8)
[2024-09-03 06:34] LABS: Albumin Level 3.3 gm/dl (3.4-5.0); BUN Creatinine Ratio 4.6 (10-20); Bilirubin Direct 0.3 mg/dl (0-0.2); Bilirubin,Total 0.9 mg/dl (0.2-1.0); Calcium 7.3 mg/dl (8.6-10.3); Creatinine Clr Calc Pharmacy 8.5 ml/min; Magnesium 1.8 mg/dl (1.7-2.4); Phosphorus 3.8 mg/dl (2.5-4.9); Potassium 4.8 mmol/L (3.5-5.1); Total Protein 6.2 gm/dl (6.0-8.3)
[2024-09-03 06:43] LABS: iSTAT Art Bld Gas pCO2 Correct 55 mmHg (35-46); iSTAT Art Bld Gas pH Corrected 7.285 (7.35-7.45); iSTAT Arterial Blood Gas HCO3 26 meg/L (19-24); iSTAT Arterial Blood Gas pCO2 52 mmHg (35-46); iSTAT Arterial Blood Gas pO2 81 mmHg (80-95); iSTAT Arterial Blood Gas pO2 C 87; iSTAT Carbon Dioxide 27 mmol/L (24-31); iSTAT FiO2 50 %; iSTAT Hematocrit 30 % (42-52); iSTAT Hemoglobin 10.2 g/dl (14.0-18.0); iSTAT Potassium 4.8 mmol/L (3.3-5.0); iSTAT Sample Type Arterial; iSTAT Site Art Line; iSTAT Sodium 135 mmol/L (135-144); iSTAT SpO2 97
[2024-09-03] MEDS ORDERED: Nursing to Pharmacy Communication SCH ×2 (06:45→10:15)
--- NOTE | 2024-09-03 07:47 | Critical Care Progress Note ---
Date of Service September 03, 2024 Assessment & Plan (1) Acute hypoxemic respiratory failure: Plan: Reason Critically Ill: 78-year-old male with end-stage renal disease with hypoxic respiratory failure clinically consistent with volume overload needing volume control and history of hypotension PLAN: Neuro: Neuromuscular blockade - 24 hours of cis atracurium Analgesia and sedation: Best monitoring - On Versed infusion, we will scale this back while trending this given the patient is end-stage renal disease and current concern for accumulation of Versed - Fentanyl infusion Resp: Acute hypoxic respiratory failure - Received 4 effective days of Zosyn and doxycycline 08/22 until 08/25: For hypoxia and radiology infiltrates and one dose of meropenem on 08/21 - Received 2 effective days of Zosyn 08/28 until 08/30: Hypoxia was felt secondary to acute GI bleeding radiography demonstrated resolving pneumonia - Sputum 08/22 demonstrated only light normal graeme - Reviewed prior records patient had bronchoscopy done on 12/20/2023 which resulted in growth of rare Megan albicans and a saprophytic fungus and pulmonary consultation notes from December - Obtain sputum specimen if possible - Given that patient has presumptive structural lung disease and tracheobronchial malacia likely inhibiting patient's ability to clear his secretions I will empirically treat the patient for pneumonia with 14 days of Levaquin, this would also provide pseudomonal coverage; however, at this point the patient has only grown Pseudomonas out of his urine and has had a recent sputum specimen - Add 1 3 beta D glucan - Understand possible drug interactions with patient being on amiodarone and having pacemaker difficult to evaluate QTc will keep magnesium level elevated -I suspect there is a significant component of CHF associated diffuse alveolar hemorrhage: Yesterday pacemaker adjusted to allow for AV synchrony, prior AV disassociation likely increasing trans pulmonary capillary gradient leading to rupture and frothy sputum, this can also lead to fever - Given improvement in oxygenation status will consider bronchoscopy with BAL CV: History atrial fibrillation with rapid ventricular response: - Continue amiodarone for rhythm control - Risks of systemic anticoagulation outweigh benefits - Patient has had 2 subsequent episodes of symptomatic GI bleeding and is in normal sinus rhythm - Ongoing anticoagulation presents higher risk versus stroke risk at this time, should follow-up with cardiology as an outpatient prior to reinitiating anticoagulation for paroxysmal atrial fibrillation 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 - Required adjustment for AV synchrony now 100% paced rhythm History of transcatheter aortic valve replacement (TAVR): Severe aortic stenosis - Echocardiogram from 08/29 reviewed - Reviewed cardiology consultation - Limited cardiac reserve: Hyperdynamic ventricle at baseline with rest - Attempting to wean inotropic support first then phenylephrine Hypotension: Hypotension Fluids/Renal: Metabolic acidosis consistent with end-stage renal disease - Underwent episode of dialysis yesterday 1.5 L removed - Patient's exam consistent with volume overload - Records indicate June 16, 2024 weight was 94 to 95 kg currently 99.3 kg - Trial of Bumex to assist with diuresis: 2 mg IV Recent significant hypocalcemia - Recent parathyroidectomy secondary to hyperparathyroidism secondary to end-stage renal disease - Had been seen by OMFS 08/30 for ongoing sore throat, supportive care Insert Contreras - Previously patient would make small amounts of urine, Contreras inserted to see if there is any diuretic effect and also obtain urine specimen for Legionella antigen and culture ID: SIRS versus sepsis - Has an elevated white blood cell count and mildly increased temp - Blood cultures from prior admission demonstrated no g rowth, prior expectorated sputum demonstrated no growth, urine culture from 08/28 demonstrated no growth - Blood cultures ordered today in addition to sputum culture as well as repeat urine culture also adding 1 3 beta D glucan, and fungal culture - No clinical evidence to support intra-abdominal sepsis/biliary origin - Empiric treatment: Given severity of hypoxia - IV Levaquin 09/03 convert to cefepime Day 1: Last QT issue and also pseudomonal coverage, and vancomycin Day 2 - Doxycycline 100 mg daily for empiric treatment of possible Legionella x 10 days - Legionella antigen reference lab and from urine, patient makes minimal urine, prior antigen from December 19, 2023 negative - Hospitalist team ordered Zosyn: This has been discontinued - Reported allergy to Keflex with facial swelling; however, patient has tolerated Zosyn in the past and we have a endot pinky tube in place, benefits out weigh risk - Infectious disease consultation pending 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 Staff report when patient's was leaving she related to the nursing staff she did not understand events. This has also occurred during previous admission necessitating service excellence consult. Patient's hospitalizations are increasing and as well as intensity of therapeutic interventions. Considerations given of palliative care to assist conversations regarding care and prognosis also will request service excellence team to assist with communication. - I am concerned patient is not responding to limited therapeutic modalities given comorbidities and continuing to decline, high risk for morbidity and mortality. 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 This is a life/limb threatening event. This includes time spent evaluating patient, direct bedside care, chart review, placing orders, interpretation of diagnostic studies, discussion with consultants, patient, and/or family members regarding treatment decisions, as well as other required patient management activities. This time is exclusive of all separately billable procedures, and teaching time and separate from and in addition to any other critical care service time. Subjective Overnight patient required initiation of neuromuscular blockade given sign ificant hypoxia. Physical Exam Physical Exam: General: Sedated. GCS 3 TP Skin: Warm, dry, Head: Atraumatic Ears, nose, mouth and throat: airway obscured by endotracheal tube Cardiovascular: 100% paced rhythm, adequate peripheral perfusion Respiratory: Ventilator settings reviewed Gastrointestinal: Non distended Musculoskeletal: No deformity Results & Data Results & Data Vital Signs (Past 12 Hours) Vital Signs Temp Pulse Pulse Resp BP BP Pulse Ox 09/03/24 06:33 38.1 C H 93 H 20 97 09/03/24 06:03 38.0 C H 93 H 20 97 09/03/24 06:01 135/35 L 09/03/24 05:54 38.0 C H 94 H 20 97 09/03/24 05:30 38.0 C H 94 H 20 97 09/03/24 05:21 38.0 C H 94 H 20 97 09/03/24 05:00 128/40 L 09/03/24 04:30 37.9 C H 95 H 20 96 09/03/24 04:03 37.9 C H 96 H 20 132/43 L 96 09/03/24 04:00 09/03/24 04:00 94 H 93/49 L 09/03/24 03:57 37.9 C H 98 H 20 96 09/03/24 03:36 37.9 C H 97 H 20 96 09/03/24 03:32 96 H 20 96 09/03/24 03:18 37.9 C H 97 H 20 127/38 L 96 09/03/24 02:36 38.0 C H 97 H 20 95 09/03/24 02:00 38.1 C H 93 H 20 119/34 L 98 09/03/24 01:39 94 H 20 92 09/03/24 01:00 97 H 20 103/59 L 93 09/03/24 00:36 96 H 20 94 09/03/24 00:03 99 H 20 118/61 94 09/03/24 00:00 99 H 09/03/24 00:00 37.1 C 09/03/24 00:00 09/03/24 00:00 97/51 L 09/02/24 23:51 96 H 20 99 09/02/24 23:03 97 H 18 100 09/02/24 22:03 104 H 18 115/45 L 100 09/02/24 22:00 37.2 C 09/02/24 21:45 09/02/24 21:32 118/81 09/02/24 21:06 107 H 23 118/51 L 87 L 09/02/24 20:31 109 H 19 103/52 L 84 L 09/02/24 20:10 36.9 C 110 H 103/51 L 09/02/24 20:00 111 H 24 112/54 L 85 L 09/02/24 20:00 09/02/24 20:00 112 H 63/47 L O2 Del Method FiO2 09/03/24 06:33 09/03/24 06:03 09/03/24 06:01 09/03/24 05:54 09/03/24 05:30 09/03/24 05:21 09/03/24 05:00 09/03/24 04:30 09/03/24 04:03 09/03/24 04:00 50 09/03/24 04:00 09/03/24 03:57 09/03/24 03:36 09/03/24 03:32 50 09/03/24 03:18 09/03/24 02:36 09/03/24 02:00 09/03/24 01:39 09/03/24 01:00 09/03/24 00:36 09/03/24 00:03 09/03/24 00:00 09/03/24 00:00 09/03/24 00:00 70 09/03/24 00:00 09/02/24 23:51 70 09/02/24 23:03 09/02/24 22:03 09/02/24 22:00 09/02/24 21:45 Mechanical Vent 100 09/02/24 21:32 09/02/24 21:06 09/02/24 20:31 100 09/02/24 20:10 09/02/24 20:00 100 09/02/24 20:00 100 09/02/24 20:00 Critical Care Results & Data Vital Signs (Past 12 Hours) Vital Signs Temp Pulse Pulse Resp BP BP Pulse Ox 09/03/24 06:33 38.1 C H 93 H 20 97 09/03/24 06:03 38.0 C H 93 H 20 97 09/03/24 06:01 135/35 L 09/03/24 05:54 38.0 C H 94 H 20 97 09/03/24 05:30 38.0 C H 94 H 20 97 09/03/24 05:21 38.0 C H 94 H 20 97 09/03/24 05:00 128/40 L 09/03/24 04:30 37.9 C H 95 H 20 96 09/03/24 04:03 37.9 C H 96 H 20 132/43 L 96 09/03/24 04:00 09/03/24 04:00 94 H 93/49 L 09/03/24 03:57 37.9 C H 98 H 20 96 09/03/24 03:36 37.9 C H 97 H 20 96 09/03/24 03:32 96 H 20 96 09/03/24 03:18 37.9 C H 97 H 20 127/38 L 96 09/03/24 02:36 38.0 C H 97 H 20 95 09/03/24 02:00 38.1 C H 93 H 20 119/34 L 98 09/03/24 01:39 94 H 20 92 09/03/24 01:00 97 H 20 103/59 L 93 09/03/24 00:36 96 H 20 94 09/03/24 00:03 99 H 20 118/61 94 09/03/24 00:00 99 H 09/03/24 00:00 37.1 C 09/03/24 00:00 09/03/24 00:00 97/51 L 09/02/24 23:51 96 H 20 99 09/02/24 23:03 97 H 18 100 09/02/24 22:03 104 H 18 115/45 L 100 09/02/24 22:00 37.2 C 09/02/24 21:45 09/02/24 21:32 118/81 09/02/24 21:06 107 H 23 118/51 L 87 L 09/02/24 20:31 109 H 19 103/52 L 84 L 09/02/24 20:10 36.9 C 110 H 103/51 L 09/02/24 20:00 111 H 24 112/54 L 85 L 09/02/24 20:00 09/02/24 20:00 112 H 63/47 L O2 Del Method FiO2 09/03/24 06:33 09/03/24 06:03 09/03/24 06:01 09/03/24 05:54 09/03/24 05:30 09/03/24 05:21 09/03/24 05:00 09/03/24 04:30 09/03/24 04:03 09/03/24 04:00 50 09/03/24 04:00 09/03/24 03:57 09/03/24 03:36 09/03/24 03:32 50 09/03/24 03:18 09/03/24 02:36 09/03/24 02:00 09/03/24 01:39 09/03/24 01:00 09/03/24 00:36 09/03/24 00:03 09/03/24 00:00 09/03/24 00:00 09/03/24 00:00 70 09/03/24 00:00 09/02/24 23:51 70 09/02/24 23:03 09/02/24 22:03 09/02/24 22:00 09/02/24 21:45 Mechanical Vent 100 09/02/24 21:32 09/02/24 21:06 09/02/24 20:31 100 09/02/24 20:10 09/02/24 20:00 100 09/02/24 20:00 100 09/02/24 20:00 Lab & Micro Results (Past 24 Hours) RBC 2.98 M/uL (4.70-6.10) L 09/03/24 WBC 34.41 K/ul (4.8-10.8) H* 09/03/24 Hgb 9.6 g/dl (14.0-18.0) L 09/03/24 Hct 30.7 % (42.0-52.0) L 09/03/24 MCV 103.0 fL (80.0-100.0) H 09/03/24 MCH 32.2 pg (25.0-34.0) 09/03/24 MCHC 31.3 g/dL (32.0-36.0) L 09/03/24 RDW Standard Deviation 68.6 fL (36.4-46.3) H 09/03/24 RDW Coefficient of Variation 19.1 % (11.5-14.5) H 09/03/24 Plt Count 234 K/uL (130-400) 09/03/24 MPV 11.1 fL (9.4-12.4) 09/03/24 Nucleated Red Blood Cells % (auto) 1.0 % 09/03 Nucleated RBC Absolute Count (auto) 0.35 K/uL (0.00-0.12) H 09/03/24 Neutrophils (%) (Auto) 82.2 % 09/03/24 Lymphocytes (%) (Auto) 4.9 % 09/03/24 Monocytes # (Auto) 3.26 K/uL (0.11-0.59) H 09/03/24 Eosinophils # (Auto) 0.06 K/uL (0.00-0.50) 09/03/24 Immature Granulocyte % (Auto) 2.6 % 09/03/24 Neutrophils # (Auto) 28.32 K/uL (1.40-6.50) H 09/03/24 Lymphocytes # (Auto) 1.68 K/uL (1.20-3.40) 09/03/24 Monocytes # (Auto) 3.26 K/uL (0.11-0.59) H 09/03/24 Eosinophils # (Auto) 0.06 K/uL (0.00-0.50) 09/03/24 Basophils # (Auto) 0.20 K/uL (0.00-0.20) 09/03/24 Immature Granulocyte # (Auto) 0.89 K/uL (0.01-0.20) H 09/03 Polychromasia 1+ 09/03/24 Basophilic Stippling 1+ 09/03/24 Anisocytosis Present 09/02/24 Na 138 mmol/L (136-145) 09/03/24 K 4.8 mmol/L (3.5-5.1) 09/03/24 Cl 101 mmol/L (98-107) 09/03/24 CO2 27 mmol/L (21-32) 09/03/24 Anion Gap 10 (3-11) 09/03/24 BUN 36 mg/dl (6-23) H 09/03/24 Creatinine 7.82 mg/dl (0.6-1.4) H* 09/03/24 BUN/Creatinine Ratio 4.6 (10-20) L 09/03/24 Glu 150 mg/dl (70-99(Fasting)) H 09/03/24 Ca 7.3 mg/dl (8.6-10.3) L 09/03/24 Phosphorus Level 3.8 mg/dl (2.5-4.9) 09/03/24 Total Bilirubin 0.9 mg/dl (0.2-1.0) 09/03/24 Direct Bilirubin 0.3 mg/dl (0-0.2) H 09/03/24 AST 21 U/L (13-39) 09/03/24 ALT 16 U/L (7-52) 09/03/24 Alkaline Phosphatase 105 U/L (34-104) H 09/03/24 TP 6.2 gm/dl (6.0-8.3) 09/03/24 Albumin 3.3 gm/dl (3.4-5.0) L 09/03/24 Globulin 2.9 gm/dl (2.5-4.0) 09/02/24 Albumin/Globulin Ratio 1.3 (0.9-2) 09/02/24 Mg 1.8 mg/dl (1.7-2.4) 09/03/24 05:03 Calcium Level 7.3 mg/dl (8.6-10.3) L 09/03/24 05:03 Ionized Calcium 1.02 mmol/L (1.12-1.32) L 09/02/24 17:13 Prothromb Time International Ratio 1.1 (0.9-1.1) 09/02/24 11:0 5 Venous Blood pH 7.29 (7.36-7.41) L 09/02/24 11:05 Venous Blood Partial Pressure CO2 49 mmHg (38-50) 09/02/24 11:0 5 Venous Blood Partial Pressure O2 29 mmHg 09/02/24 11:05 Venous Blood HCO3 24 mmol/L 09/02/24 11:05 Venous Blood Base Excess -3.1 mEq/L 09/02/24 11:05 Venous Blood Oxygen Saturation < 60.0 % 09/02/24 11:05 Eddie Test NA 09/03/24 06:30 Microbiology 09/02/24 15:18 Fungal Smear - Final Blood Diagnostic Findings (Past 24 Hours) Chest X-Ray 09/02/24 11:00 XR chest 1V not portable CLINICAL HISTORY: Sepsis COMPARISON STUDY: 08/21/2024 FINDINGS: There is stable cardiomegaly with increased pulmonary vascular congestion. There are interval diffuse interstitial and patchy pulmonary opacities most prominent in the lower lungs. Stable elevation of the right hemidiaphragm. No definite pleural effusion. No pneumothorax seen. IMPRESSION: 1. CHF. 2. Interval pulmonary opacities could represent pneumonia or pulmonary edema. ACT 112: Negative or not required by law. Electronically signed by: Aubrey Betancourt M.D. 09/02/2024 11:39 AM Chest X-Ray 09/02/24 18:59 EXAM: XR chest 1V portable CLINICAL HISTORY: ETT TECHNIQUE: An X-ray image of the chest is obtained in AP projection. COMPARISON: 08/21/2024 CT and xray/. FINDINGS: Ett is seen in good position with lower end 5.2 cm above the ashly. NG tube is seen with lower end extending into the gastric shadow. Pulmonary Parenchyma: Lungs show areas of consolidation mainly central. No pulmonary nodules are identified. No evidence of pleural effusion or pleural thickening. Heart and Mediastinum: Heart size and shape are normal. No mediastinal widening or masses. No hilar or mediastinal lymphadenopathy. Bony Thorax: Bony thorax appears intact without fractures or deformities. Soft Tissues: Soft tissues overlying the chest wall are unremarkable. IMPRESSION: 1. Ett is seen in good position with lower end 5.2 cm above the ashly. 2. NG tube is seen with lower end extending into the gastric shadow. 3. Lungs show areas of extendive consolidation mainly central. likely pulmonary edema. Interval progression Electronically signed by Lazaro Vergara 09-02-2024 9:14 PM I & O Totals 24 Hours 09/02/24 09/03/24 09/04/24 06:59 06:59 06:59 Intake Total 2734.491 / 2734.491 345.977 / 345.977 Output Total 0 / 0 Balance 2734.491 / 2734.491 345.977 / 345.977 Cumulative 09/02/24 10:42 thru 09/03/24 07:03 Intake Total 3080.468 Output Total 0 Balance 3080.468 RT Ventilator Mngmt (Last Documented) Ventilator Ordered Settings Ventilator Support Mode Assist Control 09/03/24 04:00 Respiratory Rate 20 09/03/24 06:33 Ventilator Tidal Volume 450 09/03/24 04 :00 Setting Minute Ventilation 9 09/03/24 03:32 Positive End Expiratory 12 09/03/24 04:00 Pressure Fraction of Inspired Oxygen 50 09/03/24 04:00 Peak Inspiratory Flow 34 09/02/24 18:52 Machine Comment titrated oxygen to 50% 09/03/24 03:32 Ventilator - PT Measurements Respiratory Rate 20 Exhaled Tidal Volume 450 Minute Ventilation 9 Peak Inspiratory Airway 31 Pressure Plateau Pressure 27 Respiratory Cycle Inspiratory: 1:2.8 Expiratory Ratio Inspiratory Phase Time 0.8 End-Tidal CO2 48 Static Lung Compliance 30.00 Dynamic Lung Compliance 23.68 Normal Static Lung Compliance 46.00 Coding Level of Care Code 29981 CRITICAL CARE 1ST 30-74M Additional Critical Care Time Additional 30min Critical Care Time: Yes - 02678 Diagnoses Acute hypoxemic respiratory failure J96.01 Pulmonary edema J81.1 History of recent surgery Z98.890 Sore throat and laryngitis J06.0 Pacemaker Z95.0 Pulmonary emphysema, unspecified emphysema type J43.9 Emphysema type: unspecified Atrial fibrillation with rapid ventricular response I48.91 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 N25.81; N18.6; Z99.2 Second degree AV block I44.1 End-stage renal disease on hemodialysis N18.6; Z99.2 Additional Codes Critical Care Time - Additional 30min Critical Care Time: Yes - 38510 ([id number]) (6) Emphysema lung Emphysema type: unspecified Qualified Code(s): J43.9 - Emphysema, unspecified
[2024-09-03] MEDS: CALCIUM ACETATE 667 MG CAP/TAB PO SCH (08:00)
[2024-09-03] MEDS: AMIODARONE 200 MG TAB PO SCH (08:28)
--- NOTE | 2024-09-03 08:42 | Procedure Note ---
Procedure Note Date of Service September 02, 2024 Delayed chart entry Procedure date: Noted above Procedure: Central venous access Pre-procedure indication: Need for vasoactive medication administration, poor vascular access Post-procedure Diagnosis: same as above Prior to Procedure: Informed Consent: The risks, benefits, indications, potential complications, and alternatives were explained to the patient and and informed consent obtained. Attending Staff: Peggy Aguilera DO Resident/APC: Not applicable Skin Prep: Chlorhexidine Anesthesia: 4 mL 1% lidocaine without epinephrine The identity of the patient was confirmed and a bedside time out was performed. Description of Procedure: After sterile prep and sterile drape utilizing standard sterile technique the superficial skin of the right jugular area was anesthetized. The target vessel was identified and entered with an 18-gauge needle. Dark venous blood return was noted. A guidewire was attempted to be inserted inserted through the needle and into the vessel. At approximately 7 cm resistance was encountered and I was unable to pass the guidewire. 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 Procedure Date: Noted Above Procedure: Procedural Ultrasound Indication: Central venous access Attending: Peggy Aguilera DO Resident/Physician Behavioral Health Tech: Not applicable Artery visualized: Yes Vein visualized: Yes Compressible Vein: Yes Vein patent: Yes Guidewire or Short Catheter seen in vein prior to dilation: Not applicable Line confirmed in Vein with ultrasound: Yes Lung Sliding on side of attempt (if applicable): NA If no lung sliding or not obtained has CXR been ordered: Yes Impression: Unsuccessful central venous access placement, successful localization and entry of right internal jugular vein Images obtained are saved for permanent record [facility] [place] Procedure Codes (Charges) Tubes, Drains, and Vasc Access Procedure 1: Tubes, Drains, and Vasc Access: [id number] Insertion Of Non-tunneled Catheter Age 4 Yrs> (Right-sided procedure please add modifier of discontinued procedure) Procedure 2: Tubes, Drains, and Vasc Access: [id number] Ultrasound Guidance For Vascular Coding CPT Codes Tubes, Drains, and Vasc Access - Tubes, Drains, and Vasc Access: [id number] Insertion Of Non-tunneled Catheter Age 4 Yrs> ([id number]) Tubes, Drains, and Vasc Access - Tubes, Drains, and Vasc Access: [id number] Ultrasound Guidance For Vascular ([id number]) Additional Codes Date of Service ([email or web address])
--- NOTE | 2024-09-03 08:43 | Procedure Note ---
Procedure Note Date of Service September 03, 2024 Procedure date: Noted above Procedure: Central venous access Pre-procedure indication: Need for vasoactive medication administration, unable to place CVC in right internal jugular Post-procedure Diagnosis: same as above Prior to Procedure: Informed Consent: The risks, benefits, indications, potential complications, and alternatives were explained to the patient and and informed consent obtained. Attending Staff: Peggy Aguilera DO Resident/APC: Not applicable Skin Prep: Chlorhexidine Anesthesia: 4 mL 1% lidocaine without epinephrine The identity of the patient was confirmed and a bedside time out was performed. Description of Procedure: After sterile prep and sterile drape utilizing standard sterile technique the superficial skin of the left femoral area was anesthetized. The target vessel was identified and entered with an 18-gauge needle. Dark venous blood return was noted. A guidewire was inserted through the needle and into the vessel. The needle was withdrawn and a skin nikolay was made. A tissue dilator was advanced via Seldinger technique and removed. A triple lumen catheter was inserted via Seldinger technique and the guidewire removed. All ports srini and flushed easily. A Biopatch was placed, and the catheter was secured via silk suture. A sterile dressing was then applied. Complications: None Estimated blood loss: Trace Patient tolerated the procedure well. Procedure Date: Noted Above Procedure: Procedural Ultrasound Indication: Central venous access Attending: Peggy Aguilera DO Resident/Physician Larry Operator: Not applicable Artery visualized: Yes Vein visualized: Yes Compressible Vein: Yes Vein patent: Yes Guidewire or Short Catheter seen in vein prior to dilation: Yes Line confirmed in Vein with ultrasound: Yes Lung Sliding on side of attempt (if applicable): NA If no lung sliding or not obtained has CXR been ordered: Not applicable Impression: Successful central venous access placement Images obtained are saved for permanent record [facility] [place] Procedure Codes (Charges) Tubes, Drains, and Vasc Access Procedure 1: Tubes, Drains, and Vasc Access: [id number] Insertion Of Non-tunneled Catheter Age 4 Yrs> (Left-sided procedure) Coding CPT Codes Tubes, Drains, and Vasc Access - Tubes, Drains, and Vasc Access: [id number] Insertion Of Non-tunneled Catheter Age 4 Yrs> ([id number]) Additional Codes Date of Service ([facility].[email or web address])
--- NOTE | 2024-09-03 08:49 | Procedure Note ---
Procedure Note Date of Service September 02, 2024 Procedure Date: September 02, 2018 Procedure: Endotracheal intubation Pre-procedure Diagnosis: Acute hypoxic respiratory failure Post-procedure Diagnosis: same as above Prior to Procedure: Informed Consent: emergent Attending Staff: Peggy Aguilera DO The identity of the patient was confirmed and a bedside time out was performed. Patient previously indicated he wanted to try noninvasive mechanical ventilation prior to intubation. Patient was given approximately 15-minute trial of noninvasive ventilation IPAP 20 EPAP 15 for worsening hypoxia, given no improvement and persistent tachypnea patient was intubated for impending respiratory failure Description of Procedure: The patient was prepared in the usual fashion. A video laryngoscope was used. A 8 mm inner diameter endotrachial tube was placed endotracheally to 24 cm at the teeth. A grade 1 view was obtained, there was significant dark pink frothy sputum continuously protruding from between the vocal cords consistent with pulmonary edema. The endotracheal tube was noted to pass through the vocal co rds. Chest rise was bilateral. Bilateral breath sounds were heard without air sounds in the abdomen. Mist was noted in the endotracheal tube. End-tidal CO2 measurement was positive. Chest x-ray shows proper endotracheal tube placement. Complications: None Findings: Not applicable Specimens: Not applicable Estimated blood loss: Zero [facility] Procedure Codes (Charges) Resuscitation Resuscitation: 11312 Endotracheal Intubation, emergency Coding CPT Codes Resuscitation - Resuscitation: 83337 Endotracheal Intubation, emergency ([id number]) Additional Codes Date of Service ([facility].SURGERY)
[2024-09-03] MEDS ORDERED: NON-FORMULARY MEDICATION (Prenatal No.144-Folic Acid [Prenatal] 400 mcg Tablet,Chewable) PO SCH (09:00)
[2024-09-03] MEDS: BUMETANIDE 2 MG in SYRINGE 0 ML IV ONE (09:14)
[2024-09-03] MEDS: PANTOprazole 40 MG/10 ML SYR IV SCH (09:14)
[2024-09-03] MEDS: DOXYCYCLINE HYCLATE 100 MG in DEXTROSE 5% MINI-B 100 ML IV SCH (09:14)
[2024-09-03] MEDS: CEFEPIME 1000MG 1,000 MG/10 ML SYR IV SCH (09:19)
[2024-09-03] MEDS: FINASTERIDE 5 MG TAB PO SCH (09:27)
--- NOTE | 2024-09-03 09:35 | Nephrology Progress Note ---
Date of Service September 03, 2024 Assessment & Plan Admission and Anticipated Discharge Date Admission Date: September 02, 2024 Subjective Assessment & Plan (1) End-stage renal disease on hemodialysis: HD today 3 hrs w/ goal 2 L fluid off with pressor support; no heparin as Chance of DAH. very poor prognosis and high chance of dying. access is AVF so not likely dialysis related infection. very sick and unstable so not really in a position to be transferred for CRRT ( which is unlikely to make any difference anyway as it seems the cardio-pulm system has got to the point of no return) (2) Sepsis: hypotension, fever, leukocytosis, acute respiratory failure -blood cultures taken as are others. On abx currently. (3) Acute hypoxemic respiratory failure: abrupt worsening of resp status p and now is intubated and on 2 pressors--very critically sick. As per ICU high chance she has Diffuse alveolar hemorrhage. reviewed cards and ICU note and discussed in detail with ICU. (4) Hypocalcemia: had been requiring near daily IV calcium to maintain low normal levels last admission Will supplement w/ IV calcium 2 gm bid --Ca is 7.3. No zemplar and no liquid calcitriol in hsopital. S--Super sick now. Had Dialysis yesterday but then later yesterday got pavan sick and now intubated and on 2 pressors. Physical Exam Physical Exam: General: Sedated. Intubated on pressors. Cardiovascular: 100% paced rhythm, adequate peripheral perfusion has edema trace to 1+ Respiratory: Ventilator . coarse BS b/l Gastrointestinal: Non distended Results & Data Vital Signs (Past 12 Hours) Vital Signs Temp Pulse Resp BP Pulse Ox O2 Del Method FiO2 09/03/24 08:03 38.1 C H 91 H 20 96 Mechanical Vent 40 09/03/24 08:01 137/36 L 09/03/24 07:33 38.1 C H 93 H 20 98 09/03/24 07:25 93 H 20 98 50 09/03/24 07:15 38.1 C H 92 H 20 98 09/03/24 07:15 151/41 H 09/03/24 06:51 38.1 C H 92 H 20 98 09/03/24 06:33 38.1 C H 93 H 20 97 09/03/24 06:03 38.0 C H 93 H 20 97 09/03/24 06:01 135/35 L 09/03/24 05:54 38.0 C H 94 H 20 97 09/03/24 05:30 38.0 C H 94 H 20 97 09/03/24 05:21 38.0 C H 94 H 20 97 09/03/24 05:00 128/40 L 09/03/24 04:30 37.9 C H 95 H 20 96 09/03/24 04:03 37.9 C H 96 H 20 132/43 L 96 09/03/24 04:00 50 09/03/24 04:00 94 H 93/49 L 09/03/24 03:57 37.9 C H 98 H 20 96 09/03/24 03:36 37.9 C H 97 H 20 96 09/03/24 03:32 96 H 20 96 50 09/03/24 03:18 37.9 C H 97 H 20 127/38 L 96 09/03/24 02:36 38.0 C H 97 H 20 95 09/03/24 02:00 38.1 C H 93 H 20 119/34 L 98 09/03/24 01:39 94 H 20 92 09/03/24 01:00 97 H 20 103/59 L 93 09/03/24 00:36 96 H 20 94 09/03/24 00:03 99 H 20 118/61 94 09/03/24 00:00 99 H 09/03/24 00:00 37.1 C 09/03/24 00:00 70 09/03/24 00:00 97/51 L 09/02/24 23:51 96 H 20 99 70 09/02/24 23:03 97 H 18 100 09/02/24 22:03 104 H 18 115/45 L 100 09/02/24 22:00 37.2 C 09/02/24 21:45 Mechanical Vent 100
--- NOTE | 2024-09-03 09:45 | Pharmacy Report ---
Pharmacy PK ABX Note - Date of Service September 03, 2024 - Assessment and Plan Assessment * 78 year old M receiving vancomycin and cefepime for empiric sepsis coverage, possible HAP/VAP. Day #2 of antimicrobial therapy. * Blood cultures pending, MRSA nasal negative. Continue vancomycin for now per Dr. Aguilera * ESRD on iHD. Patient was only able to tolerate 2 hours of HD yesterday 2nd low BP. Plan for 3 hours today, if tolerated. * ID consulted. Plan Vancomycin * Given iHD, will plan to dose vancomycin by levels around HD. * Goal pre-HD level 15-20 mcg/mL * Pre-HD level today subtherapeutic at 10.7 mcg/mL * HD orders placed for today, however not yet dialyzed. * Will give supplemental vancomycin 750 mg IV * Repeat random level tomorrow Pharmacy will continue to follow and will adjust dose/frequency as necessary. Thank you. Pharmacy has transitioned to AUC monitoring for vancomycin. AUC/RANDI is the preferred PK/PD target and is associated with decreased risk of nephrotoxicity compared to traditional trough targets.
[2024-09-03] MEDS ORDERED: SODIUM CHLORIDE 0.9% 1,000 ML IV PRN (09:46)
[2024-09-03] MEDS: CHOLECALCIFEROL 25 MCG (1000 UNITS) TAB PO SCH (10:30)
--- NOTE | 2024-09-03 10:32 | Procedure Note ---
Procedure Note Date of Service September 03, 2024 Procedure date: Noted above Procedure: fiberoptic bronchoscopy Pre-procedure indication: Acute hypoxic respiratory failure concern for diffuse alveolar hemorrhage Post-procedure Diagnosis: same as above Prior to Procedure: Informed Consent: The risks, benefits, indications, potential complications, and alternatives were explained to the patient's and informed consent obtained. Attending Staff: Peggy Aguilera DO Resident/APC: Not applicable Skin Prep: Not applicable Anesthesia: Continuous infusion Versed and fentanyl The identity of the patient was confirmed and a bedside time out was performed. Description of Procedure: Fiberoptic bronchoscopy was performed via endotracheal tube. Bronchioalveolar lavage of the right lower lobe was performed. Findings included: Bilateral proximal airways appeared healthy without purulence, distal airways appeared to have signs of barotrauma. No purulence was noted in either lung field. Right middle lobe was isolated and serially lavaged with 100 mL of normal saline. There was no clearing of the dark red aspirate and arguably increase in color intensity, this is consistent with diffuse alveolar hemorrhage Complications: None Specimens: Bronchial washings sent for culture and Gram stain, fungal elements, AFB stain and culture, cell count differential, cell count differential. Estimated blood loss: Trace [facility] [place] Procedure Codes (Charges) Pulmonary/Thoracic Procedure 1: Pulmonary and Thoracic: 84799 Dx bronchoscopy/BAL Coding CPT Codes Pulmonary/Thoracic - Pulmonary and Thoracic: 45703 Dx bronchoscopy/BAL ([id number]) Additional Codes Date of Service ([facility].SURGERY)
[2024-09-03] MEDS ORDERED: methylPREDNISolone 125 MG/2 ML VIAL IV SCH (11:00)
[2024-09-03] MEDS: methylPREDNISolone 125 MG in SYRINGE 0 ML IV SCH (11:21)
[2024-09-03] MEDS: VANCOMYCIN 750 MG in SODIUM CHLORIDE 0.9% 250 ML IV ONE (11:21)
[2024-09-03 11:28] LABS: Appearance Urine Turbid (Clear); Bacteria Urine Automated 4+ (None Seen); Bilirubin Urine Negative (Negative); Blood Urine 2+ (Negative); Color Urine Yellow; Epithelial Cell Urine Auto 0-2 /hpf (0-2); Glucose Urine UA Negative (Negative); Ketones Urine Trace (Negative); Leukocyte Esterase Urine 3+ (Negative); Nitrite Urine Negative (Negative); Protein Urine 3+ (Negative); RBC Urine Automated 0-2 /hpf (0-2); Specific Gravity Urine 1.017 (1.000-1.030); Urobilinogen Urine Negative (Negative); WBC Urine Automated >50 /hpf (0-5); pH Urine 5.5 (4.5-7.5)
--- NOTE | 2024-09-03 12:42 | Cardiology Progress Note ---
<Statement entered by Jessica Gentile, DO - 09/03/24 21:52> I have reviewed the advanced practitioner's documentation and agree with the plan of care. I accept the responsibility for the associated risk. pt seen in cardiology f/u due to cardio-renal shock with underlying severe pt prognosis is not good i joined ICU attending today in a discussion with the about the patient's severe condition and multi-organ failure sadly I think the pt is not going to recover from this continue pressers leadless pacemaker is now functioning better after reprogramming yesterday . Date of Service September 03, 2024 Assessment & Plan (1) Acute hypoxemic respiratory failure: (2) Pulmonary edema: (3) History of transcatheter aortic valve replacement (TAVR): Plan Patient presenting to [facility] with severe respiratory distress/acute sepsis/hypotension in setting of ESRD on HD and severe valvular heart disease. He has had multiple admissions over the last few months including episodes of GI bleeding, sepsis, respiratory failure, hypotension and intolerance of hemodialysis. 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 Increased gradients since October 2023. Attempted anticoagulation due to possible HALT, but did not improve. 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 Prognosis is poor at this time. Underwent bronchoscopy which is now indicated alveolar hemorrhage despite being off therapeutic anticoagulation Now requiring paralytics due to dyssynchrony with mechanical ventilation hemodialysis has been somewhat limited due to hypotension and currently on 2 vasopressors Given multiple admissions and overall decline in his health over the last 6 months, would consider palliative care consult and discuss goals of care. Family at bedside at the time of evaluation had discussion with legal transcriptionist as well as cardiology Case discussed with Dr. Gentiel. Please see attestation for additional recommendations. I spent a total of 40 minutes on the date of service in preparation, delivery, and documentation of the care provided to the patient excluding any time spent in the performance of separately billed services. RODRICK Elliott Department of Cardiology, [facility] This chart was completed in part utilizing Speech Voice Recognition Software. Grammatical errors, random word insertions, pronoun errors, and incomplete sentences are an occasional consequence of this system due to software limitations, ambient noise, and hardware issues. Any formal questions or concerns about the content, text, or information contained within the body of this dictation should be directly addressed to the provider for clarification. Admission and Anticipated Discharge Date Admission Date: September 02, 2024 Review of Systems Review of Systems: Unobtainable due to endotracheal tube Physical Exam Constitutional: + ill appearing and + mechanically venti lated Neck: trachea midline, no thyromegaly Respiratory: Auscultation: + diminished lung sounds Cardiovascular: Rate/Rhythm: regular rate and regular rhythm Heart Sounds: + murmur Gastrointestinal (Abdomen): normal bowel sounds, soft, nontender, no hepatosplenomegaly Skin: no rashes, warm and dry Psychiatric: Intubated and sedated Results & Data Vital Signs (Past 12 Hours) Vital Signs Temp Pulse Resp BP Pulse Ox O2 Del Method FiO2 09/03/24 12:00 50 09/03/24 11:36 37.9 C H 78 20 97 09/03/24 11:33 37.9 C H 68 20 97 09/03/24 11:15 37.9 C H 83 20 97 Mechanical Vent 40 09/03/24 11:01 139/33 L 09/03/24 11:00 37.9 C H 90 20 96 09/03/24 10:45 37.9 C H 84 20 93 09/03/24 10:45 77 20 93 50 09/03/24 10:35 Mechanical Vent 09/03/24 10:30 38.0 C H 85 20 100 09/03/24 10:24 38.0 C H 91 H 22 100 09/03/24 10:15 38.0 C H 94 H 20 100 09/03/24 10:06 38.0 C H 39 L 20 96 09/03/24 10:03 38.0 C H 67 20 97 09/03/24 10:00 119/24 L 09/03/24 09:57 38.0 C H 91 H 20 96 09/03/24 09:42 38.0 C H 90 20 97 09/03/24 09:27 37.9 C H 90 24 97 09/03/24 09:03 37.3 C 92 H 20 96 09/03/24 09:00 Mechanical Vent 40 09/03/24 09:00 142/37 H 09/03/24 08:36 38.0 C H 85 20 95 09/03/24 08:33 38.0 C H 86 20 95 09/03/24 08:03 38.1 C H 91 H 20 96 Mechanical Vent 40 09/03/24 08:01 137/36 L 09/03/24 08:00 40 09/03/24 08:00 92 H 09/03/24 07:33 38.1 C H 93 H 20 98 09/03/24 07:25 93 H 20 98 50 09/03/24 07:15 38.1 C H 92 H 20 98 09/03/24 07:15 151/41 H 09/03/24 06:51 38.1 C H 92 H 20 98 09/03/24 06:33 38.1 C H 93 H 20 97 09/03/24 06:03 38.0 C H 93 H 20 97 09/03/24 06:01 135/35 L 09/03/24 05:54 38.0 C H 94 H 20 97 09/03/24 05:30 38.0 C H 94 H 20 97 09/03/24 05:21 38.0 C H 94 H 20 97 09/03/24 05:00 128/40 L 09/03/24 04:30 37.9 C H 95 H 20 96 09/03/24 04:03 37.9 C H 96 H 20 132/43 L 96 09/03/24 04:00 50 09/03/24 04:00 94 H 93/49 L 09/03/24 03:57 37.9 C H 98 H 20 96 09/03/24 03:36 37.9 C H 97 H 20 96 09/03/24 03:32 96 H 20 96 50 09/03/24 03:18 37.9 C H 97 H 20 127/38 L 96 09/03/24 02:36 38.0 C H 97 H 20 95 09/03/24 02:00 38.1 C H 93 H 20 119/34 L 98 09/03/24 01:39 94 H 20 92 09/03/24 01:00 97 H 20 103/59 L 93 09/03/24 00:36 96 H 20 94 Laboratory Results Cardiac Enzymes 09/02/24 09/02/24 09/03/24 Range/Units 15:18 21:33 05:03 AST 21 (13-39) U/L Troponin I High Sens 129.2 H* 175.8 H* D (0-20) pg/ml CBC 09/03/24 Range/Units 05:03 WBC 34.41 H* (4.8-10.8) K/ul RBC 2.98 L (4.70-6.10) M/uL Hgb 9.6 L (14.0-18.0) g/dl Hct 30.7 L (42.0-52.0) % Plt Count 234 (130-400) K/uL Neut # (Auto) 28.32 H (1.40-6.50) K/uL Lymph # (Auto) 1.68 (1.20-3.40) K/uL White # (Auto) 3.26 H (0.11-0.59) K/uL Eos # (Auto) 0.06 (0.00-0.50) K/uL Baso # (Auto) 0.20 (0.00-0.20) K/uL Comprehensive Metabolic Panel 09/03/24 09/03/24 Range/Units 00:22 05:03 Sodium 137 138 (136-145) mmol/L Potassium 4.4 4.8 (3.5-5.1) mmol/L Chloride 100 101 (98-107) mmol/L Carbon Dioxide 28 27 (21-32) mmol/L BUN 35 H 36 H (6-23) mg/dl Creatinine 7.51 H* D 7.82 H* D (0.6-1.4) mg/dl Glucose 186 H 150 H (70-99(Fasting)) mg/dl Calcium 7.5 L 7.3 L (8.6-10.3) mg/dl Direct Bilirubin 0.3 H (0-0.2) mg/dl AST 21 (13-39) U/L ALT 16 (7-52) U/L Alkaline Phosphatase 105 H (34-104) U/L Total Protein 6.2 (6.0-8.3) gm/dl Albumin 3.3 L (3.4-5.0) gm/dl Intake and Output 09/02/24 09/03/24 09/03/24 22:59 06:59 14:59 Intake Total 1412.951 / 2734.491 1321.540 / 2734.491 1006.322 / 1006.322 Output Total 0 / 0 0 / 0 150 / 150 Balance 1412.951 / 2734.491 1321.540 / 2734.491 856.322 / 856.322 Intake: IV 1412.951 / 2734.491 1321.540 / 2734.491 976.322 / 976.322 Calcium Gluconate 1,000 mg In 60 / 120 60 / 120 60 ml @ 240 mls/hr IV Q15M [facility] Rx#:[id number] Cisatracurium Besylate 40 mg In 143.448 / 143.448 82.752 / 82.752 Dextrose 5% 80 ml @ 3 MCG/KG/ MIN 28.71 mls/hr IV .Q3H29M [facility]HANA[facility] Rx#:[id number] DOPamine / D5W 400 mg In 250 ml 163.257 / 291.132 127.875 / 291.132 217.100 / 217.100 @ 11 MCG/KG/MIN 40.879 mls/hr IV .Q6H7M [facility]HANAEL Rx#:[id number] Doxycycline Hyclate 100 mg In 100 / 100 Dextrose 5% Mini-B 100 ml @ 50 mls/hr IV Q12H [facility] Rx#:[id number] Midazolam HCl 125 mg In 250 ml 4.733 / 303.200 298.467 / 303.200 1.8 / 1.8 @ 2 MG/HR 4 mls/hr IV .[id number] [facility]HANAEL Rx#:[id number] Phenylephrine/Nss 100 mg In 250 230.957 / 730.957 500 / 730.957 484.045 / 484.045 ml @ 5.6 MCG/KG/MIN 83.244 mls /hr IV .Q3H1M [facility] Rx#:[id number] Phenylephrine/Nss 25 mg In 250 152.337 / 152.337 ml @ 1.9 MCG/KG/MIN 112.974 mls /hr IV .Q2H13M [facility] Rx#:[id number] Piperacillin/Tazobactam 4.5 gm 100 / 200 100 / 200 In 100 ml @ 25 mls/hr IV Q12H [facility] Rx#:[id number] Vancomycin HCl 2,000 mg In 540 / 540 Sodium Chloride 0.9% 500 ml @ 200 mls/hr IV NOW ONE Rx#: [id number] fentaNYL citrate 2,500 mcg In 11.667 / 103.417 91.75 / 103.417 90.625 / 90.625 250 ml @ 100 MCG/HR 10 mls/hr IV .Q25H [facility] Rx#:[id number] levoFLOXacin/D5W 750 mg In 150 150 / 150 ml @ 100 mls/hr IV ONE ONE Rx#: [id number] Oral 0 / 0 0 / 0 30 / 30 Output: Urine 0 / 0 0 / 0 0 / 0 Urine Amount (Catheter) 150 / 150 Contreras/Indwelling 150 / 150 Other: Hemodialysis Ultrafiltration 1,500 Amount Other Intake Source with meds Weight 99.1 kg 99.3 kg Weight Measurement Method Built in [facility] Built in [facility] Diagnostic Findings Laboratory Results WBC 34.41 K/ul (4.8-10.8) H* 09/03/24 05:03 RBC 2.98 M/uL (4.70-6.10) L 09/03/24 05:03 Hgb 9.6 g/dl (14.0-18.0) L 09/03/24 05:03 POC Hgb 10.2 g/dl (14.0-18.0) L 09/03/24 06:30 Hct 30.7 % (42.0-52.0) L 09/03/24 05:03 POC Hct 30 % (42-52) L 09/03/24 06:30 MCV 103.0 fL (80.0-100.0) H 09/03/24 05:03 MCH 32.2 pg (25.0-34.0) 09/03/24 05:03 MCHC 31.3 g/dL (32.0-36.0) L 09/03/24 05:03 RDW Std Deviation 68.6 fL (36.4-46.3) H 09/03/24 05:03 RDW Coeff of Grace 19.1 % (11.5-14.5) H 09/03/24 05:03 Plt Count 234 K/uL (130-400) 09/03/24 05:03 MPV 11.1 fL (9.4-12.4) 09/03/24 05:03 Immature Gran % (Auto) 2.6 % 09/03/24 05:03 Neut % (Auto) 82.2 % 09/03/24 05:03 Lymph % (Auto) 4.9 % 09/03/24 05:03 White % (Auto) 9.5 % 09/03/24 05:03 Eos % (Auto) 0.2 % 09/03/24 05:03 Baso % (Auto) 0.6 % 09/03/24 05:03 Neut # (Auto) 28.32 K/uL (1.40-6.50) H 09/03/24 05:03 Lymph # (Auto) 1.68 K/uL (1.20-3.40) 09/03/24 05:03 White # (Auto) 3.26 K/uL (0.11-0.59) H 09/03/24 05:03 Eos # (Auto) 0.06 K/uL (0.00-0.50) 09/03/24 05:03 Baso # (Auto) 0.20 K/uL (0.00-0.20) 09/03/24 05:03 Immature Gran # (Auto) 0.89 K/uL (0.01-0.20) H 09/03/24 05:03 Absolute Nucleated RBC 0.35 K/uL (0.00-0.12) H 09/03/24 05:03 Nucleated RBC % (auto) 1.0 % 09/03/24 05:03 Polychromasia 1+ 09/03/24 05:03 Basophilic Stippling 1+ 09/03/24 05:03 Anisocytosis Present 09/02/24 11:05 ESR 55 mm/hr (0-20) H 09/03/24 10:48 PT 12.0 Seconds (9.0-12.0) 09/02/24 11:05 INR 1.1 (0.9-1.1) 09/02/24 11:05 APTT 31 Seconds (21-31) 09/02/24 11:05 PTT Ratio 1.2 09/02/24 11:05 Specimen Type Arterial 09/03/24 06:30 Sample Site Art Line 09/03/24 06:30 POC pH 7.30 (7.35-7.45) L 09/03/24 06:30 POC pCO2 52 mmHg (35-46) H 09/03/24 06:30 POC pO2 81 mmHg (80-95) 09/03/24 06:30 POC HCO3 26 kelsea/L (19-24) H 09/03/24 06:30 POC Total CO2 27 mmol/L (24-31) 09/03/24 06:30 POC Base Excess -1.0 kelsea/L (-9-1.8) 09/03/24 06:30 O2 Sat Pulse Oximetry 97 09/03/24 06:30 ABG pH (Temp Correct) 7.285 (7.35-7.45) L 09/03/24 06:30 ABG pCO2 (Temp Corrct 55 mmHg (35-46) H 09/03/24 06:30 POC ABG pO2 at Pt Temp 87 09/03/24 06:30 POC ABG O2 Sat 94.0 % (90-95) 09/03/24 06:30 Eddie Test NA 09/03/24 06:30 VBG pH 7.29 (7.36-7.41) L 09/02/24 11:05 VBG pCO2 49 mmHg (38-50) 09/02/24 11:05 VBG pO2 29 mmHg 09/02/24 11:05 VBG HCO3 24 mmol/L 09/02/24 11:05 VBG O2 Saturation < 60.0 % 09/02/24 11:05 VBG Base Excess -3.1 mEq/L 09/02/24 11:05 O2 Delivery Device Ventilator 09/03/24 06:30 Vent Mode AC 09/03/24 06:30 POC FiO2 50 % 09/03/24 06:30 End Tidal CO2 40 09/03/24 06:30 POC Sodium 135 mmol/L (135-144) 09/03/24 06:30 Sodium 138 mmol/L (136-145) 09/03/24 05:03 POC Potassium 4.8 mmol/L (3.3-5.0) 09/03/24 06:30 Potassium 4.8 mmol/L (3.5-5.1) 09/03/24 05:03 POC Chloride 101 mmol/L (101-112) 09/02/24 11:16 Chloride 101 mmol/L (98-107) 09/03/24 05:03 Carbon Dioxide 27 mmol/L (21-32) 09/03/24 05:03 POC Total CO2 23 mmol/L (24-31) L 09/02/24 11:16 Anion Gap 10 (3-11) 09/03/24 05:03 POC Anion Gap 20.0 mmol/L (16-25) 09/02/24 11:16 POC BUN 40 mg/dl (7-18) H 09/02/24 11:16 BUN 36 mg/dl (6-23) H 09/03/24 05:03 Creatinine 7.82 mg/dl (0.6-1.4) H* D 09/03/24 05:03 POC Creatinine 10.6 mg/dl (0.6-1.3) H* 09/02/24 11:16 Est Cr Clr Drug Dosing 8.5 ml/min 09/03/24 05:03 eGFR 6.49 09/03/24 05:03 BUN/Creatinine Ratio 4.6 (10-20) L 09/03/24 05:03 Glucose 150 mg/dl (70-99(Fasting)) H 09/03/24 05:03 POC Glucose (other) 138 mg/dl (70-99) H 09/03/24 11:39 Lactate 1.3 mmol/L (0.4-2.0) 09/03/24 08:23 Calcium 7.3 mg/dl (8.6-10.3) L 09/03/24 05:03 POC Ioniz Calcium John 1.03 mmol/l (1.12-1.32) L 09/02/24 11:16 Ionized Calcium 0.89 mmol/L (1.12-1.32) L 09/03/24 08:23 Phosphorus 3.8 mg/dl (2.5-4.9) 09/03/24 05:03 Magnesium 1.8 mg/dl (1.7-2.4) 09/03/24 05:03 Total Bilirubin 0.9 mg/dl (0.2-1.0) 09/03/24 05:03 Direct Bilirubin 0.3 mg/dl (0-0.2) H 09/03/24 05:03 AST 21 U/L (13-39) 09/03/24 05:03 ALT 16 U/L (7-52) 09/03/24 05:03 Alkaline Phosphatase 105 U/L (34-104) H 09/03/24 05:03 Troponin I High Sens 175.8 pg/ml (0-20) H* D 09/02/24 21:33 B-Natriuretic Peptide 3456 pg/ml (0-100) H 09/02/24 11:05 Total Protein 6.2 gm/dl (6.0-8.3) 09/03/24 05:03 Albumin 3.3 gm/dl (3.4-5.0) L 09/03/24 05:03 Globulin 2.9 gm/dl (2.5-4.0) 09/02/24 11:05 Albumin/Globulin Ratio 1.3 (0.9-2) 09/02/24 11:05 Procalcitonin 1.73 ng/ml (0-0.5) H 09/02/24 11:05 Urine Color Yellow 09/03/24 Unknown Urine Appearance Turbid (Clear) A 09/03/24 Unknown Urine pH 5.5 (4.5-7.5) 09/03/24 Unknown Ur Specific Sully 1.017 (1.000-1.030) 09/03/24 Unknown Urine Protein 3+ (Negative) H 09/03/24 Unknown Urine Glucose (UA) Negative (Negative) 09/03/24 Unknown Urine Ketones Trace (Negative) H 09/03/24 Unknown Urine Blood 2+ (Negative) H 09/03/24 Unknown Urine Nitrite Negative (Negative) 09/03/24 Unknown Urine Bilirubin Negative (Negative) 09/03/24 Unknown Urine Urobilinogen Negative (Negative) 09/03/24 Unknown Ur Leukocyte Esterase 3+ (Negative) H 09/03/24 Unknown Urine WBC (Auto) >50 /hpf (0-5) H 09/03/24 Unknown Urine RBC (Auto) 0-2 /hpf (0-2) 09/03/24 Unknown U Hyaline Cast (Auto) 11-20 /lpf (0-2) H 09/03/24 Unknown U Epithel Cells (Auto) 0-2 /hpf (0-2) 09/03/24 Unknown Urine Bacteria (Auto) 4+ (None Seen) H 09/03/24 Unknown Nasal Screen MRSA (PCR) Negative (Negative) 09/02/24 13:45 Random Vancomycin 10.7 mcg/ml (10-20) 09/03/24 05:03 Adenovirus (PCR) Not Detected (NotDetected) 09/02/24 11:05 B. pertussis DNA (PCR) Not Detected (NotDetected) 09/02/24 11:05 B.parapertussis DNA PCR Not Detected (NotDetected) 09/02/24 11:05 C. pneumoniae DNA (PCR) Not Detected (NotDetected) 09/02/24 11:05 Coronavirus OC43 (PCR) Not Detected (NotDetected) 09/02/24 11:05 Coronavirus HKU1 (PCR) Not Detected (NotDetected) 09/02/24 11:05 Coronavirus 229E (PCR) Not Detected (NotDetected) 09/02/24 11:05 SARS-CoV-2 (PCR) Not Detected (NotDetected) 09/02/24 11:05 Coronavirus NL63 (PCR) Not Detected (NotDetected) 09/02/24 11:05 Human Metapneumovir PCR Not Detected (NotDetected) 09/02/24 11:05 Influenza Type A (PCR) Not Detected (NotDetected) 09/02/24 11:05 Influenza Type B (PCR) Not Detected (NotDetected) 09/02/24 11:05 M. pneumoniae (PCR) Not Detected (NotDetected) 09/02/24 11:05 Parainfluenza 1 (PCR) Not Detected (NotDetected) 09/02/24 11:05 Parainfluenza 2 (PCR) Not Detected (NotDetected) 09/02/24 11:05 Parainfluenza 3 (PCR) Not Detected (NotDetected) 09/02/24 11:05 Parainfluenza 4 (PCR) Not Detected (NotDetected) 09/02/24 11:05 RSV (PCR) Not Detected (NotDetected) 09/02/24 11:05 Entero/Rhino (PCR) Not Detected (NotDetected) 09/02/24 11:05 Impressions Chest X-Ray 09/02/24 18:59 EXAM: XR chest 1V portable CLINICAL HISTORY: ETT TECHNIQUE: An X-ray image of the chest is obtained in AP projection. COMPARISON: 08/21/2024 CT and xray/. FINDINGS: Ett is seen in good position with lower end 5.2 cm above the ashly. NG tube is seen with lower end extending into the gastric shadow. Pulmonary Parenchyma: Lungs show areas of consolidation mainly central. No pulmonary nodules are identified. No evidence of pleural effusion or pleural thickening. Heart and Mediastinum: Heart size and shape are normal. No mediastinal widening or masses. No hilar or mediastinal lymphadenopathy. Bony Thorax: Bony thorax appears intact without fractures or deformities. Soft Tissues: Soft tissues overlying the chest wall are unremarkable. IMPRESSION: 1. Ett is seen in good position with lower end 5.2 cm above the ashly. 2. NG tube is seen with lower end extending into the gastric shadow. 3. Lungs show areas of extendive consolidation mainly central. likely pulmonary edema. Interval progression Electronically signed by Lazaro Vergara 09-02-2024 9:14 PM Medications Administered Current Inpatient Medications Albuterol (Albut/Ipratrop 3mg/0.5mg Neb 3 Ml Vial) 3 ml INH Q4H PRN PRN Reason: Dyspnea Stop: 10/02/24 14:21 Amiodarone HCl (Amiodarone 200 Mg Tab) 200 mg PO DAILY [facility] Stop: 10/03/24 08:59 Last Admin: 09/03/24 08:28 Dose: 200 mg Atorvastatin Calcium (Atorvastatin 40 Mg Tab) 80 mg PO HS [facility]HANAEL Stop: 10/02/24 20:59 Last Admin: 09/02/24 21:45 Dose: 80 mg Calcitriol (Calcitriol 0.25 Mcg Capsule) 1 mcg PO BID [facility]HANAEL Stop: 10/02/24 20:59 Last Admin: 09/03/24 10:29 Dose: Not Given Calcium Acetate (Calcium Acetate 667 Mg Cap/Tab) 1,334 mg PO TIDM [facility] Stop: 10/03/24 07:59 Last Admin: 09/03/24 11:22 Dose: Not Given Calcium Carbonate (Calcium Carbonate 500 Mg Chewable Tab) 500 mg PO TID [facility]EL Stop: 10/02/24 20:59 Last Admin: 09/03/24 09:21 Dose: 500 mg Dextrose (Dextrose 50% 50 Ml Syringe) 25 - 50 ml IV UD PRN; Protocol PRN Reason: Hypoglycemia Protocol Stop: 10/02/24 17:31 Fentanyl Citrate (Fentanyl Bolus From Bag) 50 mcg IV Q60M PRN PRN Reason: Pain or Agitation Stop: 09/16/24 18:40 Finasteride (Finasteride 5 Mg Tab) 5 mg PO DAILY NATHANAEL Stop: 10/03/24 08:59 Last Admin: 09/03/24 09:27 Dose: 5 mg Glucagon (Glucagon For Inj 1 Mg Vial) 1 mg SQ UD PRN; Protocol PRN Reason: Hypoglycemia Protocol Stop: 10/02/24 17:31 Glucose (Glucose 40% Gel 15 Gm Tube) 15 - 30 gm PO UD PRN; Protocol PRN Reason: Hypoglycemia Protocol Stop: 10/02/24 17:31 Glucose (Glucose 10 Tab/Tube) 4 - 8 tab PO UD PRN; Protocol PRN Reason: Hypoglycemia Protocol Stop: 10/02/24 17:31 Heparin Sodium (Porcine) (Heparin Sod 5,000 Unit/0.5 Ml Vial) 7,500 units SQ Q8 [facility] Stop: 10/02/24 21:59 Last Admin: 09/03/24 06:28 Dose: 7,500 units Thiamine HCl 100 mg/ Syringe 10 mls @ 2 mls/min IV QAM [facility] Stop: 10/02/24 15:29 Last Admin: 09/03/24 08:29 Dose: 2 mls/min Phenylephrine HCl (Phenylephrine/Nss) 100 mg in 250 mls @ 83.244 mls/hr IV .Q3H1M [facility]HANAEL; Protocol Stop: 10/02/24 16:44 Last Admin: 09/03/24 12:29 Dose: Not Given Dopamine HCl/Dextrose (Dopamine / D5w) 400 mg in 250 mls @ 40.879 mls/hr IV .Q6H7M [facility]; Protocol Stop: 10/02/24 18:44 Last Admin: 09/03/24 11:22 Dose: Not Given Fentanyl Citrate (Fentanyl Citrate) 2,500 mcg in 250 mls @ 10 mls/hr IV .Q25H [facility]HANAEL; Protocol Stop: 09/16/24 18:44 Last Titration: 09/03/24 09:30 Dose: 100 mcg/hr, 10 mls/hr Cisatracurium Besylate 40 mg/ (Dextrose) 100 mls @ 28.71 mls/hr IV .Q3H29M [facility]; Protocol Stop: 10/02/24 20:59 Last Admin: 09/03/24 09:14 Dose: 3 mcg/kg/min, 28.7 mls/hr Midazolam HCl (Versed) 125 mg in 250 mls @ 4 mls/hr IV .[id number] [facility]; Protocol Stop: 10/02/24 18:44 Last Titration: 09/03/24 07:03 Dose: 2 mg/hr, 4 mls/hr Cefepime HCl (Maxipime 2000mg) 1,000 mg in 10 mls @ 5 mls/min IV Q24H [facility]; Protocol Stop: 09/10/24 08:59 Last Admin: 09/03/24 09:19 Dose: 5 mls/min Doxycycline Hyclate 100 mg/ (Dextrose) 100 mls @ 50 mls/hr IV Q12H [facility] Stop: 09/13/24 08:59 Last Infusion: 09/03/24 12:28 Dose: Infused Pantoprazole Sodium (Protonix) 40 mg in 10 mls @ 5 mls/min IV DAILY [facility] Stop: 10/03/24 08:59 Last Admin: 09/03/24 09:14 Dose: 5 mls/min Sodium Chloride (Nss) 1,000 mls @ 0 mls/hr IV .Q0M PRN PRN Reason: For Hemodialysis Use ONLY Stop: 09/03/24 15:45 Methylprednisolone 125 mg/ (Syringe) 2 mls @ 0.667 mls/min IV Q6H [facility] Stop: 09/06/24 10:59 Last Admin: 09/03/24 11:21 Dose: 0.667 mls/min Insulin Aspart (Insulin Aspart Per Unit Charge) 0 units SC Q6 [facility] Stop: 10/02/24 17:59 Last Admin: 09/03/24 12:24 Dose: Not Given Midodrine (Midodrine Hcl 2.5 Mg Tab) 5 mg PO TODAY@0700,1700 [facility] Stop: 10/02/24 16:59 Last Admin: 09/03/24 08:00 Dose: 5 mg Miscellaneous (Order Awaiting Action) 1 each N/A QS [facility] Stop: 10/02/24 15:59 Last Admin: 09/03/24 08:00 Dose: Not Given Miscellaneous (Carbohydrates For Hypoglycemia ) 15 - 30 gm PO UD PRN PRN Reason: Hypoglycemia Protocol Stop: 10/02/24 17:31 Miscellaneous Information (Vancomycin Consult Active) 1 each N/A UD PRN PRN Reason: Consult Stop: 10/02/24 11:48 Multi-Ingredient Cream (Artificial Tears Op Oint 3.5 Gm Tube) 1 appln OP Q4H [facility] Stop: 10/02/24 20:29 Last Admin: 09/03/24 11:23 Dose: 1 appln Vitamin D (Cholecalciferol 25 Mcg (1000 Units) Tab) 25 mcg PO DAILY [facility] Stop: 10/03/24 09:29 Last Admin: 09/03/24 10:30 Dose: 25 mcg
[2024-09-03] MEDS ORDERED: levoFLOXacin/D5W 250 MG/50 ML BAG IV SCH (15:00)
[2024-09-03 18:21] LABS: Hematocrit (blood only) 30.4 % (42.0-52.0); Hemoglobin 9.3 g/dl (14.0-18.0)
--- NOTE | 2024-09-03 18:34 | Hospitalist Progress Note ---
Date of Service September 03, 2024 Assessment & Plan (1) Acute hypoxemic respiratory failure: Plan: Findings included: Bilateral proximal airways appeared healthy without purulence, distal airways appeared to have signs of barotrauma. No purulence was noted in either lung field. Right middle lobe was isolated and serially lavaged with 100 mL of normal saline. There was no clearing of the dark red aspirate and arguably increase in color intensity, this is consistent with diffuse alveolar hemorrhage (1) Acute hypoxemic respiratory failure: Plan: Acute hypoxic respiratory failure 2/2 pulmonary edema, possibly multifactorial with underlying chronic diastolic HF, severe aortic stenosis and undiagnosed COPD Pneumonia Pulmonary Hemorrhage remains sedated, intubated on HD for volume management continue IV antibiotics, Steroids added Severe sepsis with Temp 37.9, respirations in the 30's, WBC 26, Lactate 2.6, Procalcitonin 1.7 with cognitive changes. Vanco and Zosyn initiated in the emergency department. remains on vasopressors, ff up cultures History of CKD Stage V, Hemodialysis --. 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 Admission and Anticipated Discharge Date Admission Date: September 02, 2024 Subjective ff up for 0 Results & Data Results & Data Vital Signs (Past 12 Hours) Vital Signs Temp Pulse Resp BP Pulse Ox Pulse Ox O2 Del Method 09/03/24 18:00 37.2 C 84 20 110/53 L 92 09/03/24 17:57 37.2 C 85 20 92 09/03/24 17:15 36.9 C 85 20 99 09/03/24 17:01 164/44 H 09/03/24 17:00 37.5 C 88 0 L 09/03/24 16:45 37.5 C 87 20 99 09/03/24 16:30 37.5 C 86 20 95 09/03/24 16:15 37.5 C 87 20 95 09/03/24 16:00 158/51 H 09/03/24 16:00 09/03/24 16:00 97 09/03/24 15:54 37.6 C H 87 20 94 09/03/24 15:48 37.6 C H 87 20 94 09/03/24 15:30 37.6 C H 86 24 94 09/03/24 15:27 37.6 C H 86 20 94 09/03/24 15:00 37.8 C H 90 20 93 09/03/24 15:00 88 20 93 09/03/24 14:50 90 09/03/24 14:48 37.8 C H 93 H 20 93 09/03/24 14:30 37.8 C H 89 20 92 09/03/24 14:21 37.9 C H 89 20 92 09/03/24 14:03 37.9 C H 90 20 92 09/03/24 14:00 154/33 H 09/03/24 13:57 37.9 C H 90 20 92 09/03/24 13:48 37.9 C H 50 L 20 93 09/03/24 13:33 37.9 C H 83 20 93 09/03/24 13:06 37.9 C H 83 20 93 Mechanical Vent 09/03/24 12:48 37.9 C H 90 20 93 09/03/24 12:45 37.9 C H 89 20 93 09/03/24 12:39 37.9 C H 90 20 93 09/03/24 12:18 37.9 C H 90 20 94 09/03/24 12:00 09/03/24 11:36 37.9 C H 78 20 97 09/03/24 11:33 37.9 C H 68 20 97 09/03/24 11:15 37.9 C H 83 20 97 Mechanical Vent 09/03/24 11:01 139/33 L 09/03/24 11:00 37.9 C H 90 20 96 09/03/24 10:45 37.9 C H 84 20 93 09/03/24 10:45 77 20 93 09/03/24 10:35 Mechanical Vent 09/03/24 10:30 38.0 C H 85 20 100 09/03/24 10:24 38.0 C H 91 H 22 100 09/03/24 10:15 38.0 C H 94 H 20 100 09/03/24 10:06 38.0 C H 39 L 20 96 09/03/24 10:03 38.0 C H 67 20 97 09/03/24 10:00 119/24 L 09/03/24 09:57 38.0 C H 91 H 20 96 09/03/24 09:42 38.0 C H 90 20 97 09/03/24 09:27 37.9 C H 90 24 97 09/03/24 09:03 37.3 C 92 H 20 96 09/03/24 09:00 Mechanical Vent 09/03/24 09:00 142/37 H 09/03/24 08:36 38.0 C H 85 20 95 09/03/24 08:33 38.0 C H 86 20 95 09/03/24 08:03 38.1 C H 91 H 20 96 Mechanical Vent 09/03/24 08:01 137/36 L 09/03/24 08:00 09/03/24 08:00 92 H 09/03/24 07:33 38.1 C H 93 H 20 98 09/03/24 07:25 93 H 20 98 09/03/24 07:15 38.1 C H 92 H 20 98 09/03/24 07:15 151/41 H 09/03/24 06:51 38.1 C H 92 H 20 98 O2 Del Method FiO2 09/03/24 18:00 09/03/24 17:57 09/03/24 17:15 09/03/24 17:01 09/03/24 17:00 09/03/24 16:45 09/03/24 16:30 09/03/24 16:15 09/03/24 16:00 09/03/24 16:00 40 09/03/24 16:00 Mechanical Vent 09/03/24 15:54 09/03/24 15:48 09/03/24 15:30 09/03/24 15:27 09/03/24 15:00 09/03/24 15:00 40 09/03/24 14:50 09/03/24 14:48 09/03/24 14:30 09/03/24 14:21 09/03/24 14:03 09/03/24 14:00 09/03/24 13:57 09/03/24 13:48 09/03/24 13:33 09/03/24 13:06 40 09/03/24 12:48 09/03/24 12:45 09/03/24 12:39 09/03/24 12:18 09/03/24 12:00 50 09/03/24 11:36 09/03/24 11:33 09/03/24 11:15 40 09/03/24 11:01 09/03/24 11:00 09/03/24 10:45 09/03/24 10:45 50 09/03/24 10:35 09/03/24 10:30 09/03/24 10:24 09/03/24 10:15 09/03/24 10:06 09/03/24 10:03 09/03/24 10:00 09/03/24 09:57 09/03/24 09:42 09/03/24 09:27 09/03/24 09:03 09/03/24 09:00 40 09/03/24 09:00 09/03/24 08:36 09/03/24 08:33 09/03/24 08:03 40 09/03/24 08:01 09/03/24 08:00 40 09/03/24 08:00 09/03/24 07:33 09/03/24 07:25 50 09/03/24 07:15 09/03/24 07:15 09/03/24 06:51
[2024-09-03 18:56] LABS: Fibrinogen > 860 mg/dl (184-400); INR 1.3 (0.9-1.1); Partial Thromboplastin Ratio 1.4; Partial Thromboplastin Time 38 Seconds (21-31); Prothrombin Time 13.5 Seconds (9.0-12.0)
--- NOTE | 2024-09-03 20:07 | Procedure Note ---
Procedure Note Date of Service September 03, 2024 ARTERIAL LINE PROCEDURE NOTE: Procedure: Arterial Line Placement Attending: Dr. Aguilera APC: Jina Winslow PA-C Indication: Monitoring on Pressors/Frequent labs Anesthesia: Lidocaine 1% Consent was signed and placed on the chart prior to procedure. Indication, risks, and benefits were explained at length. A time-out was completed verifying correct patient, procedure, site, positioning, and implant(s) or special equipment if applicable. In situ CVC was undressed and sterilized. Patients L groin was prepped and draped in the usual sterile fashion. Ultrasound guidance was used to aid needle placement. A 20g Arrow arterial line was introduced into the L femoral artery. Catheter was threaded, and the needle was removed with appropriate blood return. Good waveform was observed. The patient tolerated the procedure well. Blood Loss: < 5cc Complications: None Artery Identified: YES Complications: NONE Patient tolerated procedure: [facility] [place] Procedure Codes (Charges) Tubes, Drains, and Vasc Access Procedure 1: Tubes, Drains, and Vasc Access: [id number] Arterial Cath/Cannulation Sampling/Monitoring/Transfusion Coding CPT Codes Tubes, Drains, and Vasc Access - Tubes, Drains, and Vasc Access: [id number] Arterial Cath/Cannulation Sampling/Monitoring/Transfusion ([id number]) Additional Codes Date of Service ([email or web address])
[2024-09-03] MEDS: EPOETIN ALFA 10,000 UNITS/ML VIAL IV ONE (21:28)
--- NOTE | 2024-09-03 21:37 | Communication Note ---
Date of Service: September 03, 2024 Patient profoundly unstable with attempt to remove volume with HD. Unable to remove anything per HD RN. Dopamine was at max dose as well as Neosynephrine w ith MAP 30. He received 2mg bumetanide this AM with small amount of urine. Given he does still produce urine I will add 100mg furosemide x1 to attempt to get volume off. His prognosis remains extremely guarded. 0430: Oxygenation improved. Reduced PEEP from 12 to 10. Coding Level of Care Code None
[2024-09-03] MEDS: FUROSEMIDE 40 MG/4 ML VIAL IV ONE (22:02)
[2024-09-03 23:49] LABS: Hematocrit (blood only) 27.4 % (42.0-52.0); Hemoglobin 8.7 g/dl (14.0-18.0)
[2024-09-04 04:25] LABS: iSTAT Art Bld Gas pCO2 Correct 44 mmHg (35-46); iSTAT Arterial Blood Gas HCO3 23 meg/L (19-24); iSTAT Arterial Blood Gas pCO2 45 mmHg (35-46); iSTAT Arterial Blood Gas pH 7.33 (7.35-7.45); iSTAT Arterial Blood Gas pO2 118 mmHg (80-95); iSTAT Arterial Blood Gas pO2 C 116; iSTAT Carbon Dioxide 25 mmol/L (24-31); iSTAT FiO2 40 %; iSTAT Hematocrit 26 % (42-52); iSTAT Hemoglobin 8.8 g/dl (14.0-18.0); iSTAT Potassium 4.3 mmol/L (3.3-5.0); iSTAT Sample Type Arterial; iSTAT Site Art Line; iSTAT Sodium 132 mmol/L (135-144); iSTAT SpO2 100
[2024-09-04 05:12] LABS: Hematocrit (blood only) 26.3 % (42.0-52.0); Hemoglobin 8.5 g/dl (14.0-18.0); Mean Corpuscular Hemoglobin 32.7 pg (25.0-34.0); Mean Corpuscular Hgb Conc 32.3 g/dL (32.0-36.0); Mean Corpuscular Volume 101.2 fL (80.0-100.0); Mean Platelet Volume 10.9 fL (9.4-12.4); Nucleated RBC # (auto) 0.14 K/uL (0.00-0.12); Nucleated RBC % (auto) 0.5 %; Platelet Count 209 K/uL (130-400); RDW Standard Deviation 68.2 fL (36.4-46.3); White Blood Count 30.39 K/ul (4.8-10.8)
[2024-09-04 05:23] LABS: Albumin Level 2.9 gm/dl (3.4-5.0); BUN Creatinine Ratio 5.4 (10-20); Bilirubin Direct 0.2 mg/dl (0-0.2); Bilirubin,Total 0.7 mg/dl (0.2-1.0); Calcium 6.5 mg/dl (8.6-10.3); Creatinine Clr Calc Pharmacy 8.7 ml/min; Magnesium 1.8 mg/dl (1.7-2.4); Phosphorus 3.6 mg/dl (2.5-4.9); Potassium 4.4 mmol/L (3.5-5.1); Total Protein 5.7 gm/dl (6.0-8.3)
[2024-09-04 05:26] LABS: Anisocytosis Present; Basophilic Stippling 1+; Basophils # (auto) 0.06 K/uL (0.00-0.20); Basophils % (auto) 0.2 %; Dohle Bodies 1+; Echinocytes 1+; Immature Granulocytes # (auto) 0.39 K/uL (0.01-0.20); Immature Granulocytes % (auto) 1.3 %; Lymphocytes # (auto) 0.45 K/uL (1.20-3.40); Lymphocytes % (auto) 1.5 %; Monocytes # (auto) 0.89 K/uL (0.11-0.59); Monocytes % (auto) 2.9 %; Neutrophils % (auto) 94.1 %; Polychromasia 2+; Toxic Granulation 1+
--- NOTE | 2024-09-04 08:11 | Critical Care Progress Note ---
Date of Service September 04, 2024 Assessment & Plan (1) Acute hypoxemic respiratory failure: Plan: Reason Critically Ill: 78-year-old male with end-stage renal disease with hypoxic respiratory failure clinically consistent with volume overload needing volume control and history of hypotension 24-hour events: Patient was attempted on hemodialysis yesterday however this was aborted as the patient was too unstable to tolerate any fluid removal. Overnight, he has been weaned off of dopamine. He remains on Michael-Synephrine and remains on paralytics PLAN: Neuro: Continue fentanyl and Versed. Discontinue paralytics to see how he does Resp: Hypoxemic respiratory failure, ventilator dependent. Bronchoscopy with diffuse alveolar hemorrhage. White count remains elevated. He was started on high-dose steroids (125 mg Solu-Medrol IV every 6. Serological evaluation is pending. CV: Complicated history. Atrial fibrillation with rapid ventricular response currently on amiodarone. Unable to use anticoagulation due to diffuse alveolar hemorrhage. TAVR with severe . Weaning Michael-Synephrine as tolerated. Remains pressor dependent Fluids/Renal: Renal failure. Unable to tolerate dialysis with any fluid removal at this point in time. Significant electrolyte abnormalities as well. Unfortunately the patient appears unable to tolerate hemodialysis which is incompatible with life. ID: Patient is received multiple recent courses of antibiotics including courses of Zosyn doxycycline and meropenem. Most recent cultures from bronchoscopy 09/03 showed no growth to date. This admission he was started on Levaquin and received vancomycin and is now on cefepime. 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 If the patient is unable to tolerate any form of renal replacement therapy despite pressor support, this is incompatible with life and additional supportive care is not indicated. At a minimum, addressing CODE STATUS will be reattempted as performing CPR or ACLS interventions in the event of acute on chronic renal failure in a patient who cannot tolerate renal replacement therapy is futile. Would be entirely appropriate at this point in time to reconsider goals of therapy and resuscitative efforts. (2) Pulmonary edema: (3) History of recent surgery: (4) Sore throat and laryngitis: (5) Pacemaker: (6) Emphysema lung: (7) Atrial fibrillation with rapid ventricular response: (8) 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: (9) Second degree AV block: (10) End-stage renal disease on hemodialysis: Admission and Anticipated Discharge Date Admission Date: September 02, 2024 Subjective Intubated and sedated Review of Systems Review of Systems: Unobtainable due to endotracheal tube Physical Exam Constitutional: Intubated sedated and paralyzed Neck: trachea midline, no thyromegaly Respiratory: no labored breathing Auscultation: + crackles; no wheezes Cardiovascular: RRR, no murmur, no edema Gastrointestinal (Abdomen): normal bowel sounds, soft, nontender, no hepatosplenomegaly Musculoskeletal: Extremities: extremities normal to inspection Skin: no rashes, warm and dry Neurologic: Sedated and paralyzed Lymphatic: no cervical lymphadenopathy Results & Data Results & Data Vital Signs (Past 12 Hours) Vital Signs Temp Pulse Pulse Resp BP BP Pulse Ox 09/04/24 07:30 104/54 L 09/04/24 07:27 36.5 C 64 20 100 09/04/24 07:00 107/48 L 09/04/24 06:48 36.5 C 64 20 100 09/04/24 06:45 36.6 C 64 20 99 09/04/24 06:33 36.6 C 63 20 99 09/04/24 06:30 106/51 L 09/04/24 06:24 36.6 C 64 20 99 09/04/24 06:15 104/49 L 09/04/24 06:15 104/49 L 09/04/24 06:15 36.6 C 64 20 99 09/04/24 06:03 36.6 C 65 20 99 09/04/24 06:00 108/48 L 09/04/24 05:45 108/47 L 09/04/24 05:30 106/49 L 09/04/24 05:27 36.6 C 65 20 99 09/04/24 05:21 36.6 C 66 20 99 09/04/24 05:15 106/49 L 09/04/24 05:00 36.6 C 67 20 99 09/04/24 05:00 100/47 L 09/04/24 04:45 117/52 L 09/04/24 04:42 36.7 C 67 20 09/04/24 04:39 36.7 C 68 20 09/04/24 04:30 101/48 L 09/04/24 04:21 36.7 C 67 20 100 09/04/24 04:15 67 20 100 09/04/24 04:15 107/53 L 09/04/24 04:00 09/04/24 04:00 117/43 L 09/04/24 03:57 36.7 C 68 20 100 09/04/24 03:45 36.7 C 67 20 100 09/04/24 03:33 36.7 C 67 20 100 09/04/24 03:30 98/50 L 09/04/24 03:27 36.7 C 68 24 100 09/04/24 03:21 36.7 C 69 24 100 09/04/24 03:15 103/50 L 09/04/24 03:06 36.7 C 69 22 100 09/04/24 03:03 36.7 C 70 21 100 09/04/24 03:00 100/55 L 09/04/24 02:57 36.7 C 70 20 100 09/04/24 02:51 36.7 C 69 20 100 09/04/24 02:48 108/49 L 09/04/24 02:42 36.7 C 69 20 100 09/04/24 02:36 36.7 C 70 20 100 09/04/24 02:30 105/47 L 09/04/24 02:00 105/50 L 09/04/24 02:00 105/50 L 09/04/24 02:00 36.7 C 70 20 99 09/04/24 01:48 36.7 C 70 20 99 09/04/24 01:30 106/50 L 09/04/24 01:24 36.7 C 72 20 99 09/04/24 01:15 36.7 C 71 20 98 09/04/24 01:00 36.7 C 72 20 98 09/04/24 01:00 104/47 L 09/04/24 00:30 100/52 L 09/04/24 00:15 36.6 C 71 20 98 09/04/24 00:06 36.6 C 70 20 99 09/04/24 00:00 99/47 L 09/04/24 00:00 70 09/04/24 00:00 117/42 L 09/04/24 00:00 09/03/24 23:30 104/51 L 09/03/24 23:30 36.5 C 72 20 98 09/03/24 23:18 36.5 C 71 20 98 09/03/24 23:00 36.5 C 74 20 97 09/03/24 23:00 113/55 L 09/03/24 22:57 36.5 C 75 20 97 09/03/24 22:56 75 20 98 09/03/24 22:09 36.6 C 78 20 97 09/03/24 22:00 102/51 L 09/03/24 21:54 36.6 C 80 20 93 09/03/24 21:51 36.6 C 81 20 93 09/03/24 21:42 36.6 C 83 20 94 09/03/24 21:22 36.7 C 85 121/45 L 09/03/24 21:21 36.7 C 83 20 91 09/03/24 21:18 99/45 L 09/03/24 21:15 86 99/38 L 09/03/24 21:12 36.7 C 86 20 90 09/03/24 21:06 36.8 C 88 20 90 09/03/24 21:00 89 106/41 L 09/03/24 20:56 104/51 L 09/03/24 20:51 36.9 C 95 H 20 90 09/03/24 20:49 94 H 52/23 L 09/03/24 20:48 58/35 L 09/03/24 20:42 36.9 C 80 24 96 09/03/24 20:30 37.0 C 81 22 94 09/03/24 20:30 81 117/43 L 09/03/24 20:19 81 120/43 L 09/03/24 20:15 37.1 C 84 20 108/52 L 91 O2 Del Method FiO2 09/04/24 07:30 09/04/24 07:27 Mechanical Vent 40 09/04/24 07:00 09/04/24 06:48 09/04/24 06:45 09/04/24 06:33 09/04/24 06:30 09/04/24 06:24 09/04/24 06:15 09/04/24 06:15 09/04/24 06:15 09/04/24 06:03 09/04/24 06:00 09/04/24 05:45 09/04/24 05:30 09/04/24 05:27 09/04/24 05:21 09/04/24 05:15 09/04/24 05:00 09/04/24 05:00 09/04/24 04:45 09/04/24 04:42 09/04/24 04:39 09/04/24 04:30 09/04/24 04:21 09/04/24 04:15 40 09/04/24 04:15 09/04/24 04:00 40 09/04/24 04:00 09/04/24 03:57 09/04/24 03:45 09/04/24 03:33 09/04/24 03:30 09/04/24 03:27 09/04/24 03:21 09/04/24 03:15 09/04/24 03:06 09/04/24 03:03 09/04/24 03:00 09/04/24 02:57 09/04/24 02:51 09/04/24 02:48 09/04/24 02:42 09/04/24 02:36 09/04/24 02:30 09/04/24 02:00 09/04/24 02:00 09/04/24 02:00 09/04/24 01:48 09/04/24 01:30 09/04/24 01:24 09/04/24 01:15 09/04/24 01:00 09/04/24 01:00 09/04/24 00:30 09/04/24 00:15 09/04/24 00:06 09/04/24 00:00 09/04/24 00:00 09/04/24 00:00 09/04/24 00:00 40 09/03/24 23:30 09/03/24 23:30 09/03/24 23:18 09/03/24 23:00 09/03/24 23:00 09/03/24 22:57 09/03/24 22:56 40 09/03/24 22:09 09/03/24 22:00 09/03/24 21:54 09/03/24 21:51 09/03/24 21:42 09/03/24 21:22 09/03/24 21:21 09/03/24 21:18 09/03/24 21:15 09/03/24 21:12 09/03/24 21:06 09/03/24 21:00 09/03/24 20:56 09/03/24 20:51 09/03/24 20:49 09/03/24 20:48 09/03/24 20:42 09/03/24 20:30 09/03/24 20:30 09/03/24 20:19 09/03/24 20:15 Critical Care Results & Data Vital Signs (Past 12 Hours) Vital Signs Temp Pulse Pulse Resp BP BP Pulse Ox 09/04/24 07:30 104/54 L 09/04/24 07:27 36.5 C 64 20 100 09/04/24 07:00 107/48 L 09/04/24 06:48 36.5 C 64 20 100 09/04/24 06:45 36.6 C 64 20 99 09/04/24 06:33 36.6 C 63 20 99 09/04/24 06:30 106/51 L 09/04/24 06:24 36.6 C 64 20 99 09/04/24 06:15 104/49 L 09/04/24 06:15 104/49 L 09/04/24 06:15 36.6 C 64 20 99 09/04/24 06:03 36.6 C 65 20 99 09/04/24 06:00 108/48 L 09/04/24 05:45 108/47 L 09/04/24 05:30 106/49 L 09/04/24 05:27 36.6 C 65 20 99 09/04/24 05:21 36.6 C 66 20 99 09/04/24 05:15 106/49 L 09/04/24 05:00 36.6 C 67 20 99 09/04/24 05:00 100/47 L 09/04/24 04:45 117/52 L 09/04/24 04:42 36.7 C 67 20 09/04/24 04:39 36.7 C 68 20 09/04/24 04:30 101/48 L 09/04/24 04:21 36.7 C 67 20 100 09/04/24 04:15 67 20 100 09/04/24 04:15 107/53 L 09/04/24 04:00 09/04/24 04:00 117/43 L 09/04/24 03:57 36.7 C 68 20 100 09/04/24 03:45 36.7 C 67 20 100 09/04/24 03:33 36.7 C 67 20 100 09/04/24 03:30 98/50 L 09/04/24 03:27 36.7 C 68 24 100 09/04/24 03:21 36.7 C 69 24 100 09/04/24 03:15 103/50 L 09/04/24 03:06 36.7 C 69 22 100 09/04/24 03:03 36.7 C 70 21 100 09/04/24 03:00 100/55 L 09/04/24 02:57 36.7 C 70 20 100 09/04/24 02:51 36.7 C 69 20 100 09/04/24 02:48 108/49 L 09/04/24 02:42 36.7 C 69 20 100 09/04/24 02:36 36.7 C 70 20 100 09/04/24 02:30 105/47 L 09/04/24 02:00 105/50 L 09/04/24 02:00 105/50 L 09/04/24 02:00 36.7 C 70 20 99 09/04/24 01:48 36.7 C 70 20 99 09/04/24 01:30 106/50 L 09/04/24 01:24 36.7 C 72 20 99 09/04/24 01:15 36.7 C 71 20 98 09/04/24 01:00 36.7 C 72 20 98 09/04/24 01:00 104/47 L 09/04/24 00:30 100/52 L 09/04/24 00:15 36.6 C 71 20 98 09/04/24 00:06 36.6 C 70 20 99 09/04/24 00:00 99/47 L 09/04/24 00:00 70 09/04/24 00:00 117/42 L 09/04/24 00:00 09/03/24 23:30 104/51 L 09/03/24 23:30 36.5 C 72 20 98 09/03/24 23:18 36.5 C 71 20 98 09/03/24 23:00 36.5 C 74 20 97 09/03/24 23:00 113/55 L 09/03/24 22:57 36.5 C 75 20 97 09/03/24 22:56 75 20 98 09/03/24 22:09 36.6 C 78 20 97 09/03/24 22:00 102/51 L 09/03/24 21:54 36.6 C 80 20 93 09/03/24 21:51 36.6 C 81 20 93 09/03/24 21:42 36.6 C 83 20 94 09/03/24 21:22 36.7 C 85 121/45 L 09/03/24 21:21 36.7 C 83 20 91 09/03/24 21:18 99/45 L 09/03/24 21:15 86 99/38 L 09/03/24 21:12 36.7 C 86 20 90 09/03/24 21:06 36.8 C 88 20 90 09/03/24 21:00 89 106/41 L 09/03/24 20:56 104/51 L 09/03/24 20:51 36.9 C 95 H 20 90 09/03/24 20:49 94 H 52/23 L 09/03/24 20:48 58/35 L 09/03/24 20:42 36.9 C 80 24 96 09/03/24 20:30 37.0 C 81 22 94 09/03/24 20:30 81 117/43 L O2 Del Method FiO2 09/04/24 07:30 09/04/24 07:27 Mechanical Vent 40 09/04/24 07:00 09/04/24 06:48 09/04/24 06:45 09/04/24 06:33 09/04/24 06:30 09/04/24 06:24 09/04/24 06:15 09/04/24 06:15 09/04/24 06:15 09/04/24 06:03 09/04/24 06:00 09/04/24 05:45 09/04/24 05:30 09/04/24 05:27 09/04/24 05:21 09/04/24 05:15 09/04/24 05:00 09/04/24 05:00 09/04/24 04:45 09/04/24 04:42 09/04/24 04:39 09/04/24 04:30 09/04/24 04:21 09/04/24 04:15 40 09/04/24 04:15 09/04/24 04:00 40 09/04/24 04:00 09/04/24 03:57 09/04/24 03:45 09/04/24 03:33 09/04/24 03:30 09/04/24 03:27 09/04/24 03:21 09/04/24 03:15 09/04/24 03:06 09/04/24 03:03 09/04/24 03:00 09/04/24 02:57 09/04/24 02:51 09/04/24 02:48 09/04/24 02:42 09/04/24 02:36 09/04/24 02:30 09/04/24 02:00 09/04/24 02:00 09/04/24 02:00 09/04/24 01:48 09/04/24 01:30 09/04/24 01:24 09/04/24 01:15 09/04/24 01:00 09/04/24 01:00 09/04/24 00:30 09/04/24 00:15 09/04/24 00:06 09/04/24 00:00 09/04/24 00:00 09/04/24 00:00 09/04/24 00:00 40 09/03/24 23:30 09/03/24 23:30 09/03/24 23:18 09/03/24 23:00 09/03/24 23:00 09/03/24 22:57 09/03/24 22:56 40 09/03/24 22:09 09/03/24 22:00 09/03/24 21:54 09/03/24 21:51 09/03/24 21:42 09/03/24 21:22 09/03/24 21:21 09/03/24 21:18 09/03/24 21:15 09/03/24 21:12 09/03/24 21:06 09/03/24 21:00 09/03/24 20:56 09/03/24 20:51 09/03/24 20:49 09/03/24 20:48 09/03/24 20:42 09/03/24 20:30 09/03/24 20:30 Lab & Micro Results (Past 24 Hours) RBC 2.60 M/uL (4.70-6.10) L 09/04/24 WBC 30.39 K/ul (4.8-10.8) H* 09/04/24 Hgb 8.5 g/dl (14.0-18.0) L 09/04/24 Hct 26.3 % (42.0-52.0) L 09/04/24 MCV 101.2 fL (80.0-100.0) H 09/04/24 MCH 32.7 pg (25.0-34.0) 09/04/24 MCHC 32.3 g/dL (32.0-36.0) 09/04/24 RDW Standard Deviation 68.2 fL (36.4-46.3) H 09/04/24 RDW Coefficient of Variation 19.0 % (11.5-14.5) H 09/04/24 Plt Count 209 K/uL (130-400) 09/04/24 MPV 10.9 fL (9.4-12.4) 09/04/24 Nucleated Red Blood Cells % (auto) 0.5 % 09/04 Nucleated RBC Absolute Count (auto) 0.14 K/uL (0.00-0.12) H 09/04/24 Neutrophils (%) (Auto) 94.1 % 09/04/24 Lymphocytes (%) (Auto) 1.5 % 09/04/24 Monocytes # (Auto) 0.89 K/uL (0.11-0.59) H 09/04/24 Eosinophils # (Auto) 0.00 K/uL (0.00-0.50) 09/04/24 Immature Granulocyte % (Auto) 1.3 % 09/04/24 Neutrophils # (Auto) 28.60 K/uL (1.40-6.50) H 09/04/24 Lymphocytes # (Auto) 0.45 K/uL (1.20-3.40) L 09/04/24 Monocytes # (Auto) 0.89 K/uL (0.11-0.59) H 09/04/24 Eosinophils # (Auto) 0.00 K/uL (0.00-0.50) 09/04/24 Basophils # (Auto) 0.06 K/uL (0.00-0.20) 09/04/24 Immature Granulocyte # (Auto) 0.39 K/uL (0.01-0.20) H 09/04 Polychromasia 2+ 09/04/24 Basophilic Stippling 1+ 09/04/24 Echinocytes 1+ 09/04/24 Anisocytosis Present 09/04/24 Toxic Granulation 1+ 09/04/24 Dohle Bodies 1+ 09/04/24 Na 133 mmol/L (136-145) L 09/04/24 K 4.4 mmol/L (3.5-5.1) 09/04/24 Cl 99 mmol/L (98-107) 09/04/24 CO2 25 mmol/L (21-32) 09/04/24 Anion Gap 9 (3-11) 09/04/24 BUN 41 mg/dl (6-23) H 09/04/24 Creatinine 7.57 mg/dl (0.6-1.4) H* 09/04/24 BUN/Creatinine Ratio 5.4 (10-20) L 09/04/24 Glu 220 mg/dl (70-99(Fasting)) H 09/04/24 Ca 6.5 mg/dl (8.6-10.3) L 09/04/24 Phosphorus Level 3.6 mg/dl (2.5-4.9) 09/04/24 Total Bilirubin 0.7 mg/dl (0.2-1.0) 09/04/24 Direct Bilirubin 0.2 mg/dl (0-0.2) 09/04/24 AST 38 U/L (13-39) 09/04/24 ALT 33 U/L (7-52) 09/04/24 Alkaline Phosphatase 96 U/L (34-104) 09/04/24 TP 5.7 gm/dl (6.0-8.3) L 09/04/24 Albumin 2.9 gm/dl (3.4-5.0) L 09/04/24 Mg 1.8 mg/dl (1.7-2.4) 09/04/24 04:35 Calcium Level 6.5 mg/dl (8.6-10.3) L 09/04/24 04:35 Prothromb Time International Ratio 1.3 (0.9-1.1) H 09/03/24 18 :02 Eddie Test NA 09/04/24 04:13 Microbiology 09/02/24 13:01 Aerobic Blood Culture - Preliminary Blood No growth in Aerobic bottle after 24 hours. Anaerobic Blood Culture - Final 09/03/24 10:25 Gram Stain - Final Bronch Wash,Right Middle Lobe 09/02/24 11:05 Aerobic Blood Culture - Preliminary Blood No growth in Aerobic bottle after 24 hours. Anaerobic Blood Culture - Preliminary No growth in Anaerobic bottle after 24 hours. 09/02/24 15:18 Fungal Smear - Final Blood Fungal Culture - Preliminary No yeast or fungus isolated - Report 1, Additional Report to Follow. I & O Totals 24 Hours 09/03/24 09/04/24 09/05/24 06:59 06:59 06:59 Intake Total 2734.491 / 2734.491 3549.980 / 3549.980 212.827 / 212.827 Output Total 0 / 0 297 / 297 Balance 2734.491 / 2734.491 3252.980 / 3252.980 212.827 / 212.827 Cumulative 09/02/24 10:42 thru 09/04/24 08:18 Intake Total 6497.298 Output Total 297 Balance 6200.298 RT Ventilator Mngmt (Last Documented) Ventilator Ordered Settings Ventilator Support Mode Assist Control 09/04/24 04:15 Respiratory Rate 20 09/04/24 07:27 Ventilator Tidal Volume 450 09/04/24 04:15 Setting Minute Ventilation 9 09/04/24 04:15 Positive End Expiratory 10 09/04/24 04:15 Pressure Fraction of Inspired Oxygen 40 09/04/24 07:27 Peak Inspiratory Flow 34 09/02/24 18:52 Machine Comment titrated oxygen to 50% 09/03/24 03:32 Ventilator - PT Measurements Respiratory Rate 20 Exhaled Tidal Volume 450 Minute Ventilation 9 Peak Inspiratory Airway 24 Pressure Plateau Pressure 10 Respiratory Cycle Inspiratory: 1:2.8 Expiratory Ratio Inspiratory Phase Time 0.8 End-Tidal CO2 29 Static Lung Compliance 37.33 Dynamic Lung Compliance 32.14 Normal Static Lung Compliance 47.00 Patient Measurements Comment Vent changes made after ABG results were obtained Coding Level of Care Code 98472 CRITICAL CARE 1ST 30-74M Diagnoses Acute hypoxemic respiratory failure J96.01 Pulmonary edema J81.1 History of recent surgery Z98.890 Sore throat and laryngitis J06.0 Pacemaker Z95.0 Pulmonary emphysema, unspecified emphysema type J43.9 Emphysema type: unspecified Atrial fibrillation with rapid ventricular response I48.91 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 N25.81; N18.6; Z99.2 Second degree AV block I44.1 End-stage renal disease on hemodialysis N18.6; Z99.2 (6) Emphysema lung Emphysema type: unspecified Qualified Code(s): J43.9 - Emphysema, unspecified
[2024-09-04] MEDS ORDERED: Nursing to Pharmacy Communication SCH (08:30)
[2024-09-04 11:56] LABS: Hematocrit (blood only) 26.3 % (42.0-52.0); Hemoglobin 8.4 g/dl (14.0-18.0)
--- NOTE | 2024-09-04 12:03 | Nephrology Progress Note ---
Date of Service September 04, 2024 Assessment & Plan Admission and Anticipated Discharge Date Admission Date: September 02, 2024 Subjective Assessment & Plan (1) End-stage renal disease on hemodialysis: HD thursday and then attempted yesterday. Will try tomorrow after initial eval. Will need pressor support. no heparin as Chance of DAH. very poor prognosis and high chance of dying. access is AVF so not likely dialysis related infection. very sick and unstable so not really in a position to be transferred for CRRT ( which is unlikely to make any difference anyway as it seems the cardio-pulm system has got to the point of no return) (2) Sepsis: hypotension, fever, leukocytosis, acute respiratory failure blood cultures taken as are others. On abx currently. (3) Acute hypoxemic respiratory failure: abrupt worsening of resp status p and now is intubated and on 2 pressors--very critically sick. As per ICU high chance she has Diffuse alveolar hemorrhage. reviewed cards and ICU note and discussed in detail with ICU. (4) Hypocalcemia: had been requiring near daily IV calcium to maintain low normal levels last admission Will supplement w/ IV calcium 3 gm bid --Ca is 6.9 now No zemplar and no liquid calcitriol in hospital. Subjective Intubated and sedated. had dialysis but could not take any fluid off and stopped very quick. Also had dialysis On thursday. Review of Systems Review of Systems: Unobtainable due to endotracheal tube Physical Exam Constitutional: Intubated sedated and paralyzed Neck: trachea midline, no thyromegaly Respiratory: no labored breathing Auscultation: + crackles; no wheezes Cardiovascular: RRR, no murmur, no edema Gastrointestinal (Abdomen): normal bowel sounds, soft, nontender, no hepatosplenomegaly Musculoskeletal: Extremities: extremities normal to inspection Skin: no rashes, warm and dry Neurologic: Sedated and paralyzed Lymphatic: no cervical lymphadenopathy Results & Data Vital Signs (Past 12 Hours) Vital Signs Temp Pulse Resp BP Pulse Ox O2 Del Method FiO2 09/04/24 11:17 67 20 97 40 09/04/24 10:21 36.6 C 67 20 96 09/04/24 10:06 36.5 C 66 20 96 09/04/24 10:05 102/48 L 09/04/24 10:03 36.5 C 65 20 96 09/04/24 10:01 90/46 L 09/04/24 10:01 90/46 L 09/04/24 09:53 93/41 L 09/04/24 09:45 36.5 C 64 20 100 09/04/24 09:42 36.5 C 64 20 99 09/04/24 09:33 36.5 C 64 20 99 09/04/24 09:30 104/56 L 09/04/24 09:18 36.5 C 64 20 99 09/04/24 09:15 36.5 C 64 20 99 09/04/24 09:12 36.5 C 64 20 99 09/04/24 09:09 64 09/04/24 09:06 36.5 C 63 20 99 09/04/24 09:00 102/47 L 09/04/24 09:00 102/47 L 09/04/24 08:57 36.5 C 64 20 99 09/04/24 08:45 36.5 C 63 20 99 09/04/24 08:33 36.5 C 66 20 99 09/04/24 08:30 106/49 L 09/04/24 08:27 36.5 C 64 20 99 09/04/24 08:21 36.5 C 66 20 99 09/04/24 08:05 63 20 100 40 09/04/24 08:00 40 09/04/24 08:00 102/56 L 09/04/24 07:45 36.5 C 63 20 100 09/04/24 07:44 Mechanical Vent 40 09/04/24 07:30 104/54 L 09/04/24 07:27 36.5 C 64 20 100 Mechanical Vent 40 09/04/24 07:00 107/48 L 09/04/24 06:48 36.5 C 64 20 100 09/04/24 06:45 36.6 C 64 20 99 09/04/24 06:33 36.6 C 63 20 99 09/04/24 06:30 106/51 L 09/04/24 06:24 36.6 C 64 20 99 09/04/24 06:15 104/49 L 09/04/24 06:15 104/49 L 09/04/24 06:15 36.6 C 64 20 99 09/04/24 06:03 36.6 C 65 20 99 09/04/24 06:00 108/48 L 09/04/24 05:45 108/47 L 09/04/24 05:30 106/49 L 09/04/24 05:27 36.6 C 65 20 99 09/04/24 05:21 36.6 C 66 20 99 09/04/24 05:15 106/49 L 09/04/24 05:00 36.6 C 67 20 99 09/04/24 05:00 100/47 L 09/04/24 04:45 117/52 L 09/04/24 04:42 36.7 C 67 20 09/04/24 04:39 36.7 C 68 20 09/04/24 04:30 101/48 L 09/04/24 04:21 36.7 C 67 20 100 09/04/24 04:15 67 20 100 40 09/04/24 04:15 107/53 L 09/04/24 04:00 40 09/04/24 04:00 117/43 L 09/04/24 03:57 36.7 C 68 20 100 09/04/24 03:45 36.7 C 67 20 100 09/04/24 03:33 36.7 C 67 20 100 09/04/24 03:30 98/50 L 09/04/24 03:27 36.7 C 68 24 100 09/04/24 03:21 36.7 C 69 24 100 09/04/24 03:15 103/50 L 09/04/24 03:06 36.7 C 69 22 100 09/04/24 03:03 36.7 C 70 21 100 09/04/24 03:00 100/55 L 09/04/24 02:57 36.7 C 70 20 100 09/04/24 02:51 36.7 C 69 20 100 09/04/24 02:48 108/49 L 09/04/24 02:42 36.7 C 69 20 100 09/04/24 02:36 36.7 C 70 20 100 09/04/24 02:30 105/47 L 09/04/24 02:00 105/50 L 09/04/24 02:00 105/50 L 09/04/24 02:00 36.7 C 70 20 99 09/04/24 01:48 36.7 C 70 20 99 09/04/24 01:30 106/50 L 09/04/24 01:24 36.7 C 72 20 99 09/04/24 01:15 36.7 C 71 20 98 09/04/24 01:00 36.7 C 72 20 98 09/04/24 01:00 104/47 L 09/04/24 00:30 100/52 L 09/04/24 00:15 36.6 C 71 20 98 09/04/24 00:06 36.6 C 70 20 99
[2024-09-04] MEDS: CALCIUM GLUCONATE 1,000 MG/60 ML BAG IV SCH (12:56)
[2024-09-04] MEDS: DAPTOmycin 850 MG in SYRINGE 0 ML IV SCH (19:03)
[2024-09-04 21:29] VITALS: TEMP 97.9
[2024-09-05 00:48] VITALS: PULSE 70
[2024-09-05 03:02] VITALS: RESP 22; O2SAT 97
[2024-09-05 04:06] VITALS: BP 110/35
--- NOTE | 2024-09-05 05:32 | Communication Note ---
Date of Service: September 05, 2024 Elkin has continued to clinically decompensate. At this point he is on max dose of multiple vasopressors with MAP 51. I reached out to his , Jeaneth, via telephone to update her. We had a long discussion and she told me that most of the family has said their goodbyes, and she understands that Elkin is going to pass in the coming hours, possibly sooner. I offered for her to come in and be by his side while he passes which she has accepted. For the meantime, he is now to be DNR. Jeaneth understands that Elkin's heart may stop before she arrives, and asks that we allow him to pass peacefully in that instance. Coding Level of Care Code None
[2024-09-05 05:50] LABS: Albumin Level 2.9 gm/dl (3.4-5.0); BUN Creatinine Ratio 7.3 (10-20); Bilirubin Direct 0.2 mg/dl (0-0.2); Bilirubin,Total 0.6 mg/dl (0.2-1.0); Calcium 6.3 mg/dl (8.6-10.3); Phosphorus 4.9 mg/dl (2.5-4.9); Potassium 4.6 mmol/L (3.5-5.1); Total Protein 5.9 gm/dl (6.0-8.3)
[2024-09-05 06:00] LABS: Hemoglobin 8.5 g/dl (14.0-18.0); Mean Corpuscular Hgb Conc 31.5 g/dL (32.0-36.0); Mean Corpuscular Volume 101.5 fL (80.0-100.0); Nucleated RBC # (auto) 0.31 K/uL (0.00-0.12); Nucleated RBC % (auto) 0.8 %; Platelet Count 260 K/uL (130-400); RDW Coefficient of Variation 19.2 % (11.5-14.5); RDW Standard Deviation 69.4 fL (36.4-46.3); Red Blood Count 2.66 M/uL (4.70-6.10); White Blood Count 38.88 K/ul (4.8-10.8)
[2024-09-05 06:18] LABS: Basophils # (auto) 0.06 K/uL (0.00-0.20); Basophils % (auto) 0.2 %; Echinocytes 1+; Immature Granulocytes # (auto) 0.54 K/uL (0.01-0.20); Immature Granulocytes % (auto) 1.4 %; Lymphocytes # (auto) 0.37 K/uL (1.20-3.40); Monocytes # (auto) 0.88 K/uL (0.11-0.59); Monocytes % (auto) 2.3 %; Neutrophils # (auto) 37.03 K/uL (1.40-6.50); Neutrophils % (auto) 95.1 %; Polychromasia 1+
[2024-09-05] MEDS ORDERED: Nursing to Pharmacy Communication ONE ×3 (07:15)
[2024-09-05] MEDS ORDERED: fentaNYL BOLUS from BAG IV PRN (07:21)
[2024-09-05] MEDS ORDERED: Nursing to Pharmacy Communication SCH (08:15)
[2024-09-05 19:52] LABS: Fungitell (1-3)-B-D-Glucan 52 pg/mL
[2024-09-06 00:27] LABS: Pneumocystis jirovecii PCRQual Bronch Lavage; Pneumocystis jirovecii Source BRONCH LAV
== END 2024-09-05 08:50 | disposition expired | DRG 871 ==
LOC: ED 10:42 → 1E 12:41 → SUATTDRO 12:41 → 1E 13:23
DX: J39.8 Other specified diseases of upper respiratory tract; Z88.1 Allergy status to other antibiotic agents; N18.6 End stage renal disease; N25.81 Secondary hyperparathyroidism of renal origin; K31.819 Angiodysplasia of stomach and duodenum without bleeding; E87.20 Acidosis, unspecified; I44.1 Atrioventricular block, second degree; Z87.891 Personal history of nicotine dependence; I50.32 Chronic diastolic (congestive) heart failure; D64.9 Anemia, unspecified; Z99.2 Dependence on renal dialysis; Z95.2 Presence of prosthetic heart valve; Z99.81 Dependence on supplemental oxygen; T82.857A Stenosis of other cardiac prosthetic devices, implants and grafts, initial encounter; E83.51 Hypocalcemia; I13.2 Hypertensive heart and chronic kidney disease with heart failure and with stage 5 chronic kidney disease, or end stage renal disease; Z79.899 Other long term (current) drug therapy; R65.20 Severe sepsis without septic shock; A41.9 Sepsis, unspecified organism; I48.0 Paroxysmal atrial fibrillation; Y71.2 Prosthetic and other implants, materials and accessory cardiovascular devices associated with adverse incidents; Z95.0 Presence of cardiac pacemaker; Z88.8 Allergy status to other drugs, medicaments and biological substances; Z95.5 Presence of coronary angioplasty implant and graft; I25.10 Atherosclerotic heart disease of native coronary artery without angina pectoris; J18.9 Pneumonia, unspecified organism; J44.0 Chronic obstructive pulmonary disease with (acute) lower respiratory infection; J43.9 Emphysema, unspecified; Z85.51 Personal history of malignant neoplasm of bladder; E87.70 Fluid overload, unspecified; Z86.0100 Personal history of colon polyps, unspecified; E78.5 Hyperlipidemia, unspecified; J96.01 Acute respiratory failure with hypoxia; Z66 Do not resuscitate; E11.22 Type 2 diabetes mellitus with diabetic chronic kidney disease